=== PATIENT | male | born 1950 | race Caucasian/White ===

== ENCOUNTER 2024-11-30 05:49 | Day surgery (SDC) | payer MEDICARE, SELFPAY ==
--- NOTE | 2024-11-25 13:37 | PAT.ANESEVAL ---
Pre-Assessment Diagnosis/Proposed Procedure Planned Operative Procedure(s): (N/A) Space OAR and Gold Markers Placement Anesthesia History Anesthesia History - marble finisher: Anesthesia History - marble finisher Hx Hospitalization Yes: 04/2024 PACEMAKER 11/24/24 14:38 Any Problems With Anesthesia Yes: WOKE UP DURING SURGERY 11/24/24 14:38 Cholinesterase deficiency No 11/24/24 14:38 You/Your Family Experience No 11/24/24 14:38 fever (hyperthermia) with Relationship Recent Exposure to Contagious Disease Does patient have nerve No 11/24/24 14:38 stimulator Patient instructed to have device shut off --Does patient have Pacemaker or ICD? When Was Last Pacemaker Check QUESTION #4 FULL TEXT: You/Your Family Experience fever (hyperthermia) with Anesthesia Last Oral Intake Last Oral intake: Last Oral Intake NPO since Meds taken in AM with sips of water? Meds patient instructed to take am of surgery PONV PONV - marble finisher: PONV - marble finisher Female No 11/24/24 14:38 HX of Motion Sickness No 11/24/24 14:38 HX of N/V After Surgery No 11/24/24 14:38 Non-Smoker Yes 11/24/24 14:38 Duration of Surgery greater No 11/24/24 14:38 than 60 minutes Number of Risk Factors 1 11/24/24 14:38 PONV Score Low Risk 11/24/24 14:38 Height & Weight Height & Weight: Anesthesia: Height & Weight Height 5 ft 6 in 08/03/24 10:05 Respiratory Assessment Respiratory Assessment - marble finisher: Respiratory Tract Infection Hx - marble finisher Hx Respiratory Tract Infection No 11/24/24 14:38 STOP Sleep Apnea STOP Sleep Apnea - marble finisher: STOP Sleep Apnea - marble finisher Hx Hypertension Yes: PER PT, CONTROLLED ON 11/24/24 14:38 MEDS Hx Sleep Apnea No 11/24/24 14:38 CPAP BIPAP Do you snore loudly (louder No 11/24/24 14:38 than talking or can be heard Do you often feel tired/ No 11/24/24 14:38 fatigued/ sleepy during daytime? Has anyone observed you stop No 11/24/24 14:38 breathing during sleep? STOP Results Negative 11/24/24 14:38 QUESTION #5 FULL TEXT : Do you snore loudly (louder than talking or can be heard through closed doors)? 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 Specify any problems Hx of Preganancy in last 3 N/A 11/24/24 14:38 Months Nurse Filling Out Transfusion MGRIFFITH 11/24/24 14:38 & Questions: Date: 11/24/24 11/24/24 14:38 Time: 14:42 11/24/24 14:38 Patient unable to answer at this time (ie. confused, unrespo /Reproduction History /Reproductive History - marble finisher: /Reproductive Hx- marble finisher Hx Now Gestational Age (in weeks): EDC: Hx Hx Para Hx Section SAB [facility] Medical History (Updated 11/24/24 @ 14:54 by Tamra Lang) Wears glasses Arthritis Prostate disease Blackout Non-smoker Stroke/cerebrovascular accident History of edema History of echocardiogram History of stress test Cardiology follow-up encounter Rupture of urethra Bradycardia Hyperlipemia Hypertension Nocturia Prostate cancer Home Medications ?Medication ?Instructions ?Recorded ?Last Taken ?Type amlodipine 5 mg tablet 5 mg PO QDAY 08/01/24 Unknown History aspirin 81 mg tablet,delayed 81 mg PO QHS 08/01/24 11/21/24 History release atorvastatin 40 mg tablet 40 mg PO QHS 08/01/24 Unknown History lisinopril 40 mg tablet 40 mg PO QDAY 08/01/24 Unknown History metoprolol succinate 25 mg 25 mg PO QDAY 08/01/24 Unknown History tablet,extended release 24 hr multivitamin 1 tab PO QAM 08/01/24 Unknown History triamterene 37.5 1 tab PO QAM 08/01/24 Unknown History mg-hydrochlorothiazide 25 mg tablet cranberry [id number] 1 tab PO DAILY 08/03/24 Unknown History coagulans 250 mg-30 mg-15 mg tablet (Azo Cranberry Plus Probiotic) leuprolide (3 month) 11.25 mg (3 11.25 mg IM [id number] 08/03/24 08/17/24 History month) intramuscular syringe kit (Lupron Depot) cyanocobalamin (vitamin B-12) 1,500 mcg PO DAILY 11/24/24 Unknown History 3,000 mcg capsule Allergy/AdvReac Type Severity Reaction Status Date / Time No Known Allergies Allergy Verified 11/24/24 14:30 Surgical History (Updated 11/24/24 @ 14:54 by Tamra Lang) History of cardiac catheterization History of biopsy History of esophagogastroduodenoscopy (EGD) History of colonoscopy History of spinal fusion History of bilateral hip replacements S/P placement of cardiac pacemaker Social History (Updated 08/03/24 @ 10:05 by Patsy Bryan) household members: spouse current occupational status: retired Smoking Status: Never smoker substance use type: does not use Audit: Pertinent Findings Pertinent Findings EKG Perinent findings: Date not noted on EKG but is atrial paced with left axis deviation and right bundle branch block. With a possible lateral infarct age undetermined. Echo (EF%) pertinent findings: 03/16/2024. EF 68%. Mild aortic valve stenosis. No major changes compared to echocardiogram 12/22/2019. 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 10/04/2024 [facility]. Sick sinus syndrome. EF 68% per report 03/25/2024 echo. Mild aortic stenosis. This evaluation just says that the patient was being moved forward with pacemaker placement. And work on his medications such as beta-bahman titration. Patient is asymptomatic per their evaluation. On subsequent note though states sick sinus syndrome status post pacemaker placement. Recommendation Anesthesia Recommendation Anesthesia recommendation: OPTIMIZED for anesthesia
[2024-11-30] VITALS (8 sets, daily range): BP systolic 104–135; BP diastolic 64–87; PULSE 60–79; RESP 14–16; TEMP 36.3–36.9; O2SAT 94–98; BMI 31.6
[2024-11-30] MEDS: Lactated Ringers 1,000 ML 15 ML IV (06:38)
--- NOTE | 2024-11-30 07:18 | PCM.PRE.AN2 ---
ASA Classification* ASA Classification ASA Classification: 3 Assessment & Plan Anesthesia* Anesthesia Assessment Anesthesia Assessment: Discussed sedation and/or anesthesia options, risks, benefits, and alternatives with patient/parents/legal guardian/POA. Questions invited. The patient/parents/legal guardian/POA seems to understand and agrees to proceed with anesthesia plan. Reviewed the physical assessment, medical history, allergy history and patient home medications list prior to surgery/procedure/anesthetic and documented any changes. Performed airway and anesthesia risk assessments. Anesthesia Type Anesthesia Type: General (General LMA. Patient does have mild aortic stenosis. Avoid increased heart rate or decrease blood pressure. Phenylephrine is drug of choice.) History Source History Obtained from:: Patient and Chart Anesthesia Focused Assessment* Temperature: 97.7 F Pulse Rate: 79 Blood Pressure: 135/87 Respiratory Rate: 16 Pulse Ox: 98 Oxygen Delivery Method: Room Air Airway Assessment Mouth opens: >3 cm Mallampati Score: III Teeth Condition: Caps/Crowns (Patient has several crowns. They are all tight.) Neck Range of motion (ROM): Limited ROM (Slight decrease in extesnion) Focused Labs Anesthesia Preop lab: CBC CHEMISTRY COAG Pre-Assessment Diagnosis/Proposed Procedure Planned Operative Procedure(s): (N/A) Space OAR and Gold Markers Placement Anesthesia History Anesthesia History - sap business objects developer: Anesthesia History - sap business objects developer Hx Hospitalization Yes: 04/2024 PACEMAKER 11/24/24 14:38 Any Problems With Anesthesia Yes: WOKE UP DURING SURGERY 11/24/24 14:38 Cholinesterase deficiency No 11/24/24 14:38 You/Your Family Experience No 11/24/24 14:38 fever (hyperthermia) with Relationship Recent Exposure to Contagious No 11/30/24 06:33 Disease Does patient have nerve No 11/24/24 14:38 stimulator Patient instructed to have device shut off --Does patient have Pacemaker Yes 11/30/24 06:35 or ICD? When Was Last Pacemaker Check QUESTION #4 FULL TEXT: You/Your Family Experience fever (hyperthermia) with Anesthesia Last Oral Intake Last Oral intake: Last Oral Intake NPO since 00:00 11/30/24 06:35 Meds taken in AM with sips of Yes 11/30/24 06:35 water? Meds patient instructed to amlodipine 11/30/24 06:35 take am of surgery metoprolol PONV PONV - sap business objects developer: PONV - sap business objects developer Female No 11/24/24 14:38 HX of Motion Sickness No 11/24/24 14:38 HX of N/V After Surgery No 11/24/24 14:38 Non-Smoker Yes 11/24/24 14:38 Duration of Surgery greater No 11/24/24 14:38 than 60 minutes Number of Risk Factors 1 11/24/24 14:38 PONV Score Low Risk 11/24/24 14:38 Height & Weight Height & Weight: Anesthesia: Height & Weight Height 5 ft 6 in 11/30/24 06:35 Weight: 88.8 kg 11/30/24 06:35 Body Mass Index (BMI) 31.6 11/30/24 06:35 Respiratory Assessment Respiratory Assessment - sap business objects developer: Respiratory Tract Infection Hx - sap business objects developer Hx Respiratory Tract Infection No 11/24/24 14:38 STOP Sleep Apnea STOP Sleep Apnea - sap business objects developer: STOP Sleep Apnea - sap business objects developer Hx Hypertension Yes: PER PT, CONTROLLED ON 11/24/24 14:38 MEDS Hx Sleep Apnea No 11/24/24 14:38 CPAP BIPAP Do you snore loudly (louder No 11/24/24 14:38 than talking or can be heard Do you often feel tired/ No 11/24/24 14:38 fatigued/ sleepy during daytime? Has anyone observed you stop No 11/24/24 14:38 breathing during sleep? STOP Results Negative 11/24/24 14:38 QUESTION #5 FULL TEXT : Do you snore loudly (louder than talking or can be heard through closed doors)? 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 Specify any problems Hx of Preganancy in last 3 N/A 11/24/24 14:38 Months Nurse Filling Out Transfusion MGRIFFITH 11/24/24 14:38 & Questions: Date: 11/24/24 11/24/24 14:38 Time: 14:42 11/24/24 14:38 Patient unable to answer at this time (ie. confused, unrespo /Reproduction History /Reproductive History - sap business objects developer: /Reproductive Hx- sap business objects developer Hx Now Gestational Age (in weeks): EDC: Hx Hx Para Hx Section SAB Active Medications Active Medications: Current Medications Generic Name Dose Route Start Last Admin Trade Name Freq PRN Reason Stop Dose Admin Cefazolin Sodium 2 gm/ Sodium 110 mls @ 150 mls/hr 11/30/24 11:25 Chloride IV 11/30/24 12:08 INTRAOP ONE Lactated Ringer's 1,000 mls @ 15 mls/hr 11/30/24 06:15 11/30/24 06:38 IV 15 mls/hr .Q48H UMA Administration PFSH Medical History Wears glasses Arthritis Prostate disease Blackout Non-smoker Stroke/cerebrovascular accident History of edema History of echocardiogram History of stress test Cardiology follow-up encounter Rupture of urethra Bradycardia Hyperlipemia Hypertension Nocturia Prostate cancer Home Medications ?Medication ?Instructions ?Recorded ?Last Taken ?Type amlodipine 5 mg tablet 5 mg PO QDAY 08/01/24 11/30/24 History aspirin 81 mg tablet,delayed 81 mg PO QHS 08/01/24 11/21/24 History release atorvastatin 40 mg tablet 40 mg PO QHS 08/01/24 11/29/24 History lisinopril 40 mg tablet 40 mg PO QDAY 08/01/24 11/29/24 History metoprolol succinate 25 mg 25 mg PO QDAY 08/01/24 11/30/24 History tablet,extended release 24 hr multivitamin 1 tab PO QAM 08/01/24 11/28/24 History triamterene 37.5 1 tab PO QAM 08/01/24 11/29/24 History mg-hydrochlorothiazide 25 mg tablet cranberry [id number] 1 tab PO DAILY 08/03/24 11/28/24 History coagulans 250 mg-30 mg-15 mg tablet (Azo Cranberry Plus Probiotic) leuprolide (3 month) 11.25 mg (3 11.25 mg IM [id number] 08/03/24 08/17/24 History month) intramuscular syringe kit (Lupron Depot) cyanocobalamin (vitamin B-12) 1,500 mcg PO DAILY 11/24/24 Unknown History 3,000 mcg capsule Allergy/AdvReac Type Severity Reaction Status Date / Time No Known Allergies Allergy Verified 11/24/24 14:30 Surgical History History of cardiac catheterization History of biopsy History of esophagogastroduodenoscopy (EGD) History of colonoscopy History of spinal fusion History of bilateral hip replacements S/P placement of cardiac pacemaker Social History household members: spouse current occupational status: retired Smoking Status: Never smoker substance use type: does not use Review of Systems (Anesthesia) ROS Narrative System reviewed and no additional complaints, except as documented.
--- NOTE | 2024-11-30 07:28 | PCM.HP.STD ---
HPI - General General Date of Service: 11/30/24 Chief Complaint: High risk prostate cancer HPI Narrative CHAPO THOMPSON, is a 74 M who presents for placement of gold markers and spacer gel for high risk prostate cancer patient plans to continue with hormone deprivation therapy and concomitant radiation definitive therapy to prostate and lymph nodes [facility] Medical History Wears glasses Arthritis Prostate disease Blackout Non-smoker Stroke/cerebrovascular accident History of edema History of echocardiogram History of stress test Cardiology follow-up encounter Rupture of urethra Bradycardia Hyperlipemia Hypertension Nocturia Prostate cancer Home Medications ?Medication ?Instructions ?Recorded ?Last Taken ?Type amlodipine 5 mg tablet 5 mg PO QDAY 08/01/24 11/30/24 History aspirin 81 mg tablet,delayed 81 mg PO QHS 08/01/24 11/21/24 History release atorvastatin 40 mg tablet 40 mg PO QHS 08/01/24 11/29/24 History lisinopril 40 mg tablet 40 mg PO QDAY 08/01/24 11/29/24 History metoprolol succinate 25 mg 25 mg PO QDAY 08/01/24 11/30/24 History tablet,extended release 24 hr multivitamin 1 tab PO QAM 08/01/24 11/28/24 History triamterene 37.5 1 tab PO QAM 08/01/24 11/29/24 History mg-hydrochlorothiazide 25 mg tablet cranberry [id number] 1 tab PO DAILY 08/03/24 11/28/24 History coagulans 250 mg-30 mg-15 mg tablet (Azo Cranberry Plus Probiotic) leuprolide (3 month) 11.25 mg (3 11.25 mg IM [id number] 08/03/24 08/17/24 History month) intramuscular syringe kit (Lupron Depot) cyanocobalamin (vitamin B-12) 1,500 mcg PO DAILY 11/24/24 Unknown History 3,000 mcg capsule Allergy/AdvReac Type Severity Reaction Status Date / Time No Known Allergies Allergy Verified 11/24/24 14:30 Surgical History History of cardiac catheterization History of biopsy History of esophagogastroduodenoscopy (EGD) History of colonoscopy History of spinal fusion History of bilateral hip replacements S/P placement of cardiac pacemaker Social History household members: spouse current occupational status: retired Smoking Status: Never smoker substance use type: does not use Vital Signs Vital Signs Vital Signs: 11/30/24 06:33 11/30/24 06:35 11/30/24 07:25 Temperature 97.7 F L 97.7 F L Temperature Source Temporal Pulse Rate 79 79 Respiratory Rate 16 16 Respiratory Pattern Normal Blood Pressure 135/87 H 135/87 H Blood Pressure Mean 103 Blood Pressure Source Monitor Blood Pressure Position Semi-Fowlers Blood Pressure Location Right Arm Pulse Ox 98 98 Oxygen Delivery Method Room Air Room Air Weight Weight: 88.8 kg Body Mass Index (BMI) 31.6
--- NOTE | 2024-11-30 07:29 | PCM.DC ---
Discharge Instructions Diet Discharge Diet: No restrictions DC O2, CPAP, BIPAP needs Home O2 Discharge instructions: No Dressing / Incision Discharge Activity: Return to Normal Activity and May Not Drive (while taking narcotic pain medications.) Dressing / Incision Call your doctor if you observe: Fever of 101 or Higher Follow Up Care Please Follow Up With: Cheko Bhatia MD When: Call [phone] for an appointment Test Results: Test results from this visit will be discussed in further detail at your follow-up appointment, if applicable. Discharge Plan Admission Attending Provider: Cheko Bhatia Primary Care Provider: Donnell Mendoza Instructions Print Language: Surinamese Discharge Orders/Prescriptions Prescriptions: No Action Azo Cranberry Plus Probiotic 250-30-15 mg tablet 1 tab PO DAILY Lupron Depot (3 month) 11.25 mg syringe kit 11.25 mg IM [id number] amlodipine 5 mg tablet 5 mg PO QDAY aspirin 81 mg tablet,delayed release (DR/EC) 81 mg PO QHS Patient Comments: LAST DOSE 11/21/24 FOR SURGERY ON 11/30/24 atorvastatin 40 mg tablet 40 mg PO QHS lisinopril 40 mg tablet 40 mg PO QDAY metoprolol succinate 25 mg tablet extended release 24 hr 25 mg PO QDAY multivitamin Tablet 1 tab PO QAM triamterene-hydrochlorothiazid 37.5-25 mg tablet 1 tab PO QAM cyanocobalamin (vitamin B-12) 3,000 mcg capsule 1,500 mcg PO DAILY Referrals / Follow Up: Donnell Mendoza MD [Primary Care Provider] - Disposition Disposition (needs filled in before D/C Order can be placed): Home, Self Care
[2024-11-30] MEDS: Cefazolin 2 GM in 0.9% Normal Saline (100mL Bag) 100 ML IV (07:30)
--- NOTE | 2024-11-30 07:52 | OP.PCM_ITS ---
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 The penis and testicles and perineum were prepped and draped in usual sterile fashion placed an ultrasound probe into the rectum quite difficult to get the probe and was off- center but the prostate was very large. Then under ultrasound guidance I was able to place gold markers in the prostate I placed 3 gold markers in 3 different locations of the prostate the base the mid and the apex. After 3 gold markers were placed then we proceeded with placement of the spacer gel. His prostate was extremely fixed on exam was hard and very difficult to get the needle between the rectum and the prostate in the exact position I was finally able to get the needle between the rectum and the prostate but when I injected the spacer gel there was very little to no separation between the rectum and the prostate. I decided not to try again with anymore the spacer gel think the prostate is pretty fixed in the position spacer gel to go in but only created a small amount of space between the rectum and the prostate because of the fixed nature of the prostate. Successful placement of spacer gel but very little separation between the rectum the prostate. Surgical Findings: Very hard firm prostate could not get any real separation between the rectum and the prostate and a spacer gel appear to be fixed Complications Complications: No Admit VTE Documentation VTE Present on Admission: No VTE Mechan Device Prophylaxis: SCD's VTE Pharm Prophylaxis ordered?: No
--- NOTE | 2024-11-30 08:04 | PCM.POST.ANE ---
Anesthesia: Postop Eval I Current Vital Signs Temperature: 98.3 F Pulse Rate: 64 Blood Pressure: 109/69 Respiratory Rate: 16 Pulse Ox: 94 Oxygen Delivery Method: Room Air Assessment Airway patent: Yes Spontaneous unlabored respirations: Yes Mental status: Awake and Calm nausea: No Vomiting: No Anesthesia Complication: No Fluid Hydration Crystalloid volume administer (ml): 500 Total IV fluid infused: 500 Progress Note Anesthesia document: Postop Eval 1 completed: Yes
--- NOTE | 2024-11-30 08:12 | POSTOPAN2_ITS ---
Anesthesia Postop Eval I Sum Postop Eval Completion status Anesthesia document: Postop Eval 1 completed: Yes Anesthesia Postop Eval I Summary Anesthesia Postop Eval I Summary: Anesthesia Postop Eval I: Assessment Summary Airway patent Yes 11/30/24 08:04 IT INFRASTRUCTURE ARCHITECT.SOBR Spontaneous unlabored Yes 11/30/24 08:04 IT INFRASTRUCTURE ARCHITECT.SOBR respirations Mental status Awake,Calm 11/30/24 08:04 IT INFRASTRUCTURE ARCHITECT.SOBR nausea No 11/30/24 08:04 IT INFRASTRUCTURE ARCHITECT.SOBR Vomiting No 11/30/24 08:04 IT INFRASTRUCTURE ARCHITECT.SOBR Anesthesia Postop Eval I: Fluid Summary Crystalloid volume administer 500 11/30/24 08:04 IT INFRASTRUCTURE ARCHITECT.SOBR (ml) Colloids volume administered ( ml) Blood Product volume administered (ml) Total IV fluid infused 500 11/30/24 08:04 IT INFRASTRUCTURE ARCHITECT.SOBR Anesthesia Postop Eval I: Summary Notes Anesthesia Complication No 11/30/24 08:04 IT INFRASTRUCTURE ARCHITECT.SOBR Anesthesia Complication Comment: Post-operative progress note Anesthesia: Postop Eval II Evaluation Mental status: Awake Pain Level: 1 nausea: No Vomiting: No
--- NOTE | 2024-11-30 08:12 | PCM.POSTANE2 ---
Anesthesia Postop Eval I Sum Postop Eval Completion status Anesthesia document: Postop Eval 1 completed: Yes Anesthesia Postop Eval I Summary Anesthesia Postop Eval I Summary: Anesthesia Postop Eval I: Assessment Summary Airway patent Yes 11/30/24 08:04 FINANCE ASSOCIATE.SOBR Spontaneous unlabored Yes 11/30/24 08:04 FINANCE ASSOCIATE.SOBR respirations Mental status Awake,Calm 11/30/24 08:04 FINANCE ASSOCIATE.SOBR nausea No 11/30/24 08:04 FINANCE ASSOCIATE.SOBR Vomiting No 11/30/24 08:04 FINANCE ASSOCIATE.SOBR Anesthesia Postop Eval I: Fluid Summary Crystalloid volume administer 500 11/30/24 08:04 FINANCE ASSOCIATE.SOBR (ml) Colloids volume administered ( ml) Blood Product volume administered (ml) Total IV fluid infused 500 11/30/24 08:04 FINANCE ASSOCIATE.SOBR Anesthesia Postop Eval I: Summary Notes Anesthesia Complication No 11/30/24 08:04 FINANCE ASSOCIATE.SOBR Anesthesia Complication Comment: Post-operative progress note Anesthesia: Postop Eval II Evaluation Mental status: Awake Pain Level: 1 nausea: No Vomiting: No
[2024-11-30] MEDS: Acetaminophen 325 MG Tablet 650 MG PO (10:02)
== END 2024-11-30 10:43 | disposition home or self-care (01) ==
LOC: SDC 05:50 → AC 05:54
PROVIDERS: PCP Family Medicine; Referring Provider Urology; Visit Provider Urology
PROC: (CPT 55874; principal; 2024-11-30 07:15)
DX: C61 Malignant neoplasm of prostate (principal); E78.5 Hyperlipidemia, unspecified; I10 Essential (primary) hypertension; Z86.73 Personal history of transient ischemic attack (TIA), and cerebral infarction without residual deficits; Z79.899 Other long term (current) drug therapy; R97.20 Elevated prostate specific antigen [PSA]
CPT/HCPCS: 55874; 55876; 00902; A4648; C1889; J2405

== ENCOUNTER → 2024-12-23 | Outpatient (CLI) | payer MEDICARE, SELFPAY ==
--- NOTE | 2024-12-23 07:33 | MRI_ITS ---
PROCEDURE: PELVIS W/WO CONTRAST, 12/23/2024 REASON FOR EXAM: PLANNING FOR RADIATION THERAPY, EVAL DISEASE EXTEN TECHNIQUE: Multisequence multiplanar MR of the pelvis was performed with and without IV contrast. IV contrast: 18 mL Clariscan COMPARISON: 12/03/2023 ; note that images only are available for review, the report is not available at the time of the dictation. FINDINGS: Exam limited by artifact related to bilateral hip arthroplasty hardware, most significantly severely degrading diffusion imaging which is nondiagnostic through some portions of the gland, [id number]. This is notably a mayberry sequence. Portions of the surrounding soft tissue are obscured on additional sequences obtained. Additional variable overall mild/moderate motion limitation, with some sequences moderately motion degraded, notably including small [id number] T2 sequences, which are also exam limited mayberry sequences. Additional artifacts along the cranial most aspect of the note also that dynamic postcontrast [id number] above the level of the prostate related to lumbar spinal fusion hardware. Imaging does excludes the prostatic apex from the [id number]. Prostate size: 5.9 x 5.4 x 9.2 cm, estimated volume 152 mL. Interval placement of spacing material between the anterior rectum and the posterior prostate, largely located to the RIGHT of midline. Although evaluation is limited by motion, this demonstrates a slightly unusual appearance with peripheral wall thickening/enhancement and suggestion of loculation. There is good separation of the anterior rectum and prostate at the level of the base to midgland, however at the level of the midgland to apex, there are areas of direct contact (for example, series 5 image 13). Transition zone: No definite high-risk lesion identified allowing for limitations. PI-RADS 2 findings. Peripheral Zone: No definite high-risk lesion identified allowing for limitations. Background changes of likely prostatitis (PI-RADS 2). Neurovascular bundles: Grossly unremarkable. Seminal vesicles: Atrophic and not well seen. Bladder: Mass-effect by the enlarged prostate with intraluminal protrusion of exophytic transition zone parenchyma. Bladder wall trabeculation with diverticuli suggesting chronic bladder outlet obstruction. Layering debris within the largest LEFT posterolateral diverticulum which measures 4.0 cm demonstrates restricted diffusion. Mild mucosal hyperemia within this diverticulum. Lymph nodes: Suspect a 9-12 mm LEFT external iliac node, difficult to visualize/measure due to the extent of artifact, previously 8 mm. This would be considered mildly enlarged by PI-RADS criteria. No other definite lymphadenopathy identified within visible portions of the pelvis. Bones: Variable artifact related to above bilateral hip arthroplasty and lumbar spinal fusion. No definite destructive or suspicious bony lesion is identified within visible portions of the pelvis.. Other: None. MRI/Pelvis W/WO Contrast IMPRESSION: 1. Exam considerably limited by a combination of artifacts related to hip arthr oplasty hardware and motion. 2. Interval placement of spacing material between the anterior rectum and the p rostate. Appearance is somewhat unusual and may suggest superimposed infection/abscess formation correlate with patient's clini eileen status. 3. Findings related to a LEFT posterolateral bladder diverticulum which suggest cystitis. Correlate with urinalysis. 4. Spacing material slightly asymmetrically located to the RIGHT of midline. G ood separation at the level of the base. At the level of the midgland to apex, there is persistent direct contact between the a nterior rectum and the prostate. 5. Marked prostatomegaly/BPH and sequela of likely prostatitis without definite risk lesion identified allowing for limitations (PI-RADS 2). 6. Suspect a mildly enlarged LEFT external iliac node by PI-RADS, difficult cri teria to confirm due to the extent of artifact in this region. CT should be considered however note PI-RADS criteria for lymphad enopathy in the setting of known prostatic malignancy (8 mm short axis) differ from routine CT criteria (10 mm short axis) . No other definite pelvic lymphadenopathy within visible portions of the pelvis. 7. Additional description as above. Reading Location: [id number]
--- OUTSIDE RECORDS SUMMARY | 2024-12-23 07:34 | XMS RPT_ITS | CCD ---
Author Organization [facility] Care Team Providers Care Dishcloth Folder Name Role Phone MAYA ROGERS Unavailable Unavailable Physician, PCP Unknown Unavailable Unavailab MAYA Grider Unavailable Unavailable Physician, PCP Unknown Unavailable Unavailab MAYA Grider Unavailable Unavailable GITTINS, ELLIOTT Unavailable Unavailable Physician, PCP Unknown Unavailable Unavailab rhonda ONOFRE, ELLIOTT Unavailable Unavailable Orona II, Alli Unavailable Unavailable Tourlas, Alan Unavailable Unavailabl e Tourlas, Alan Unavailable Unavailabl e Tourlas, Alan Primary Care Provider [phone] GREGORIO MEHTA Attending Unavailable TOURLAS, ALAN Primary Care Unavailabl e GREGORIO MEHTA Attending Unavailable TOURLAS, ALAN Referring Unavailabl e TOURLAS, ALAN Primary Care Unavailabl e Tourlas, Alan Unavailable Unavailabl e Tourlas, Alan Unavailable Unavailabl e Tourlas, Alan Primary Care Provider Segundo Malloy Unavailable Unavailable Unavailable Unavailable Unavailable Unavailable Unavailable Segundo Malloy Primary Care Provider [phone] MD MELLISSA, MPH [facility] Primary Care Unavailable Sippey, Dr. Brice Attending Unavailable Jacque Dao, Dr. Hari Tompkins Attending Megan deangelo MALLOY MD, MPH [facility] Primary Care Unavailable Sippey, Dr. Brice Admitting Unavailable Sippey, Dr. Brice Attending Unavailable Sippey, Dr. Brice Referring Unavailable MD MELLISSA, MPH [facility] Primary Care Unavailable MD MELLISSA, MPH [facility] Primary Care Unavailable Orona II, Dr. Alli Ordoñez Attending Stephanie MALLOY MD, MPH [facility] Primary Care Unavailable MD MELLISSA, MPH [facility] Attendin g Unavailable MD MELLISSA, MPH [facility] Care Unavailable MD MELLISSA, MPH [facility] Attendin g Unavailable MD MELLISSA, MPH [facility] Primary Care Unavailable MD MELLISSA, MPH [facility] Attendin g Unavailable MD MELLISSA, MPH [facility] Primary Care Unavailable MD MELLISSA, MPH [facility] Attendin g Unavailable MD MELLISSA, MPH [facility] Care Unavailable MD MELLISSA, MPH [facility] Attendin g Unavailable MD MELLISSA, MPH [facility] Care Unavailable MD MELLISSA, MPH [facility] Attendin g Unavailable MD MELLISSA, MPH [facility] Unavailable MD MELLISSA, MPH [facility] Attendin g Unavailable MD MELLISSA, MPH [facility] Primary [facility] Unavailable MD [facility]ISSA, [facility] Un[facility] MD MELLISSA, MPH [facility] Unavailable MD MELLISSA, MPH [facility] Attendin g Unavailable MD MELLISSA, MPH [facility] Unavailable Orona II, Dr. Alli Ordoñez Admitting Unavai lable Orona II, Dr. Alli Ordoñez Attending Unavai lable Orona II, Dr. Alli Ordoñez Referring Stephanie MALLOY MD, MPH [facility] Primary Care Unavailable Orona II, Dr. Alli Ordoñez Attending Unavai lable Orona II, Dr. Alli Ordoñez Referring Unavazoey Malloy MD MPH, [facility] Primary Care Pro vider Babs Moreno DO Unavailable [phone] Mellissa KRISHNAN, Segundo Primary Care Provider [phone] Cooperrider II, OD, Max H Unavailable Adwoa KRISHNAN, Alli Johnson Unavailable Mellissa KRISHNAN, Segundo Primary Care Provider [phone] NUSRAT MORGAN Attending U FLAVIA Haddad Referring Unavailable REJI, DONNELL L Primary Care Unavailable Reji KRISHNAN, Donnell Coronado Primary Care Provider Reji KRISHNAN, Donnell Coronado Primary Care Provider Mellissa KRISHNAN MPH, [facility] Primary Care Pro vider Mellissa KRISHNAN MPH, [facility] S Unavailable DELILAH CHRISTIAN Referring Unavailable MALLAPAREDDI, [facility] Primary Care Unavailable DELILAH CHRISTIAN Attending Unavailable COOPERRIDER II, MAX H Referring Unavailabl e MALLAPAREDDI, [facility] Primary Care Unavailable DELILAH CHRISTIAN Attending Unavailable COOPERRIDER II, MAX H Attending Unavailabl e COOPERRIDER II, MAX H Referring Unavailabl e MALLAPAREDDI, [facility] Primary Care Unavailable DELILAH CHRISTIAN Referring Unavailable REJI, DONNELL L Primary Care Unavailable DELILAH CHRISTIAN Attending Unavailable COOPERRIDER II, MAX H Attending Unavailabl e REJI, DONNELL L Primary Care Unavailable CHRISTIANDELILAH NUNEZ Referring Unavailable COOPERRIDER II, MAX H Attending Unavailabl e REJI, DONNELL L Primary Care [facility] Primary Care Unavail able [facility]EDDI, [facility] Primary Care Unavail able MALLAPAREDDI, [facility] Primary Care Unavail able REJI, DONNELL L Primary Care Unavailable REJI, DONNELL L Primary Care Unavailable REJI, DONNELL L Primary Care Unavailable REJI, DONNELL L Primary Care Unavailable Oberhauser DO, Babs L Unavailable [phone] Adwoa KRISHNAN, Alli Johnson Unavailable Reji KRISHNAN, Donnell Coronado Primary Care Provider RANDOLPH BERNAL Admitting Unavailable RANDOLPH BERNAL Attending Unavailable REJI, DONNELL L Primary Care Unavailable BERNAL, RANDOLPH Admitting Unavailable BERNAL, RANDOLPH Attending Unavailable REJI, DONNELL L Primary Care Unavailable BERNAL, RANDOLPH Referring Unavailable REJI, DONNELL L Primary Care Unavailable BERNAL, RANDOLPH Referring Unavailable REJI, DONNELL L Primary Care Unavailable Oberhauser DO, Babs L Unavailable Oberhauser DO, Babs L Unavailable [phone] Dr. Dorian Ibrahim DO Attending Provider Reji KRISHNAN, Dr. Jacobo Primary Care Provider Adwoa KRISHNAN, Dr. Carson Referring Provider Sriram KRISHNAN, Dr. Cheko Richards Attending Provider Sriram KRISHNAN, Dr. Cheko Richards Referring Provider ALLI ORONA Attending Unavailable M[facility]APAREDDI, [facility] Primary Care Unavail able [facility], [facility] Attending Unavail able [facility], [facility] Primary Care Unavail able ALLI ORONA Attending Unavailable [facility]APAREDDI, [facility] Primary Care Unavail able ALLI ORONA Attending Unavailable M[facility]APAREDDI, [facility] Primary Care Unavail able [facility]APAREDDI, [facility] Attending Unavail able [facility]EDDI, [facility] Primary Care Unavail able GATICA TRISTAN, TOBY KEENAN Attending Unava ilable M[facility]EDDI, [facility] Referring Unavail able [facility]EDDI, [facility] Primary Care Unavail able BERNAL, RANDOLPH Attending Unavailable [facility]EDDI, [facility] Primary Care Unavail able GATICA TRISTAN, TOBY KEENAN Referring Unava ilable GATICA TRISTAN TOBY KEENAN Attending Unava ilable REJI, DONNELL L Primary Care Unavailable EKATERINA, FLAVIA L Attending Unavailable REJI, DONNELL L Primary Care Unavailable EKATERINA, FLAVIA L Referring Unavailable REJI, DONNELL L Primary Care Unavailable ORONAALLI Jain Attending Unavailable REJI, DONNELL L Primary Care Unavailable REJI, DONNELL L Attending Unavailable REJI, DONNELL L Primary Care Unavailable ORONAALLI Jain Attending Unavailable REJI, DONNELL L Primary Care Unavailable BERNAL, RANDOLPH Attending Unavailable REJI, DONNELL L Primary Care Unavailable ORONAALLI Jain Attending Unavailable REJI, DONNELL L Primary Care Unavailable REJI, DONNELL L Primary Care Unavailable GATICA TRISTAN, TOBY KEENAN Attending Unava ilable REJI, DONNELL L Primary Care Unavailable REJI, DONNELL L Attending Unavailable REJI, DONNELL L Primary Care Unavailable RANDOLPH BERNAL Referring Unavailable REJI, DONNELL L Primary Care Unavailable ALLI ORONA Admitting Unavailable ALLI ORONA Attending Unavailable MALLAPAREDDI, [facility] Primary Care Unavail able ALLI ORONA Referring Unavailable MALLAPAREDDI, [facility] Primary Care Unavail able GATICA TRISTAN, TOBY KEENAN Referring Unava ilable MALLAPAREDDI, [facility] Primary Care Unavail able GATICA TRISTAN, TOBY KEENAN Referring Unava ilable MALLAPAREDDI, [facility] Primary Care Unavail able GATICA TRISTAN, TOBY KEENAN Admitting Unava ilable GATICA TRISTAN, TOBY KEENAN Attending Unava ilable REJI, DONNELL L Primary Care Unavailable GATICA TRISTAN, TOBY KEENAN Referring Unava ilable REJI, DONNELL L Primary Care Unavailable GATICA TRISTAN, TOBY KEENAN Referring Unava ilable REJI, DONNELL L Primary Care Unavailable REJI, DONNELL L Primary Care Unavailable LEONID ANAYA Attending Unavailable LEONID ANAYA Referring Unavailable REJI, DONNELL L Primary Care Unavailable LEONID ANAYA Referring Unavailable REJI, DONNELL L Primary Care Unavailable RANDOLPH BERNAL Referring Unavailable REJI, DONNELL L Primary Care Unavailable LINN IBRAHIM Referring Unavailable REJI, DONNELL L Primary Care Unavailable Reji, Donnell Primary Care Unavailable Ana Laura Lucero Attending Unavailable Cheko Bhatia Attending Unavailable Cheko Bhatia Referring Unavailable Reji, Donnell Primary Care Unavailable Dorian Ibrahim Referring Unavailable Reji, Donnell Primary Care Unavailable Dorian Ibrahim Attending Unavailable Alli Orona II Referring Unavailable Reji, Donnell Primary Care Unavailable Dorian Ibrahim Attending Unavailable Medications Current Medications Medication Drug Class(es) Dates Sig (Normalized) Sig (Original) Acetaminophen (3 sources) Start: 05-02-2024 take 1 tablet by mouth every four hours as needed acetaminophen (Tylenol) tablet 650 mg Start: 03-25-2024 take 1 tablet by eva th every six hours as needed Start: 12-29-2023 End: 12-29-2023 take 975 mg by mouth once as needed for pain 975 mg, oral, Once, On Thu12/29/23 at 0630, For 1 dose, Preprocedure, Administer with small amount of water preoperatively., If ordered PRN for pain, nurse is permitted to administer this medication for higher pain scores based on patient preference? Yes acetaminophen 325 mg / HYDROcodone bitartrate 5 mg oral tablet (9 sources) Opioid Agonist Start: 12-29-2023 End: 02-19-2024 take 1 tablet by mouth every six hours for pain HYDROcodone-acetaminophen ([place]) 5-325 mg tablet Indications: Elevated PSA Take 1 tablet by mouth every 6 hours if needed for severe pain (7 - 10). 20 tablet 12/29/2023 02/19/2024 Discontinued (Therapy completed) Start: 08-01-2019 take 1 tablet by eva th every eight hours HYDROcodone-Acetaminophen 5-325 MG Oral Tablet TAKE 1 TABLET Every 8 hours PRN Right shoulder pain Don't drive or drink alcohol while on med Quantity: 21 Refills: 0 Alan Whiteside MD Start : 01-Aug-2019 Active amLODIPine 5 mg oral tablet (20 sources) Dihydropyridine Calcium Channel Bahman Start: 09-12-2022 End: 05-26-2025 take 1 tablet by mouth once daily Amlodipine 5 mg tablet Active 5 mg PO daily August 01, 2024 1:00am Start: 09-10-2021 amLODIPine Bes ylate 10 MG Oral Tablet Quantity: 45 Refills: 0 Ordered: 28-Sep-2021 DO Start : 10-Sep-2021 Complete Start: 10-31-2019 take 1 tablet by eva th once daily amLODIPine (NORVASC) 10 MG tablet Take 10 mg by mouth daily . 0 10/31/2019 Active take 0.5 tablet by m out once daily amLODIPine Besylate 10 MG Oral Tablet TAKE 0.5 TABLET Daily Quantity: 45 Refills: 3 Ordered: 10-Sep-2021 Mellissa KRISHNAN, MPH, Segundocelina Heller Active Comment on above: Take 5 mg by mouth. Cranberry Igpq-W-Euwngkav Coag (1 source) Non-Standardized Food Allergenic Extract, Non-Standardized Plant Allergenic Extract, Vitamin C Start: 08-03-2024 Cranberry Amjx-Y-Rsfgkbdd Coag (Azo Cranberry Plus Probiotic) 250-30-15 mg tablet Active 1 {tbl} PO DAILY August 03, 2024 1:00am aspirin 81 mg delayed release oral tablet (20 sources) Platelet Aggregation Inhibitor, Nonsteroidal Anti-inflammatory Drug Start: 05-03-2024 take 1 tablet by mouth at bedtime Aspirin 81 mg tablet,delayed release (DR/EC) Active 81 mg PO AT BEDTIME August 01, 2024 1:00am Start: 12-22-2019 aspirin 81 mg chewable tablet 12/22/2019 Active atorvastatin 40 mg oral tablet (20 sources) HMG-CoA Reductase Inhibitor Start: 04-06-2024 End: 11-24-2025 take 1 tablet by mouth at bedtime Atorvastatin 40 mg tablet Active 40 mg PO AT BEDTIME August 01, 2024 1:00am Start: 06-17-2023 End: 06-16-2024 take 1 tablet by mouth once daily atorvastatin (Lipitor) 20 mg tablet Indications: High cholesterol , Cerebrovascular accident (CVA), unspecified mechanism (Multi) Take 1 tablet (20 mg) by mouth once daily. 90 tablet 3 06/17/2023 04/04/2024 Discontinued (Dose adjustment) Start: 07-18-2020 atorvastatin ( LIPITOR) 40 mg tablet 20 mg. 07/18/2020 Active Start: 12-23-2019 take 1 tablet by eva th once daily at bedtime atorvastatin (Lipitor) 40 mg tablet Take 1 tablet (40 mg) by mouth once daily at bedtime. 0 12/28/2019 Active Comment on above: 20 mg. benoxinate hydrochloride 4 mg/ml / fluorescein sodium 3 mg/ml ophthalmic solution (2 sources) Diagnostic Dye Start: 05-11-2024 End: 05-12-2024 fluorescein-benoxinat e 0.3-0.4 % 1 Drop (FLURESS) Start: 05-11-2024 End: 05-12-2024 1 Drop, BOTH EYES, DIRECT ED, Starting on Thu05/11/24 at 1500, Until Yessenia 05/12/24 at 0259, Administer for applanation tonometry. In the event of a Fluress shortage, administer [place]-Fluor 1 drop into both eyes as directed for applanation tonometry bicalutamide 50 mg oral tablet (5 sources) Androgen Receptor Inhibitor Start: 01-20-2024 End: 01-19-2025 take 1 tablet by mouth once daily bicalutamide (Casodex) 50 mg tablet Indications: Prostate cancer (Multi) Take 1 tablet (50 mg total) by mouth once daily. Take at the same time every day. 21 tablet 01/20/2024 02/19/2024 Discontinued (Therapy completed) calcium chloride 0.0014 meq/ml / potassium chloride 0.004 meq/ml / sodium chloride 0.103 meq/ml / sodium lactate 0.028 meq/ml injectable solution (2 sources) Start: 12-29-2023 take 50 mL intravenously every hour 50 mL/hr, intravenous, Continuous, Starting on Thu12/29/23 at 0630, Preprocedure Start: 11-03-2023 take 20 mL intraveno usly every hour 20 mL/hr, intravenous, Continuous, Starting on Thu11/03/23 at 1400, Preprocedure cephalexin 500 mg oral capsule (6 sources) Cephalosporin Antibacterial Start: 05-03-2024 End: 05-10-2024 take 1 capsule by mouth twice daily in the evening cephalexin (Keflex) 500 mg capsule Indications: S/P placement of cardiac pacemaker Take 1 capsule (500 mg) by mouth 2 times a day for 7 days. 14 capsule 05/03/2024 2:06 PM EDT 05/03/2024 05/10/2024 Active ciprofloxacin 250 mg oral tablet (11 sources) Quinolone Antimicrobial Start: 09-05-2024 End: 09-08-2024 take 1 tablet by mouth twice daily ciprofloxacin (Cipro) 250 mg tablet Indications: Urinary frequency Take 1 tablet (250 mg) by mouth 2 times a day for 3 days. 6 tablet 09/05/2024 09/08/2024 Active Start: 12-09-2023 End: 12-18-2023 take 1 tablet by mouth twice daily ciprofloxacin (Cipro) 500 mg tablet Indications: Elevated PSA Take 1 tablet (500 mg) by mouth 2 times a day for 3 days. 6 tablet 12/09/2023 12/18/2023 Active Start: 09-10-2020 End: 09-10-2021 take 1 tablet by mouth twice daily Ciprofloxacin HCl - 500 MG Oral Tablet Take 1 tablet twice daily Quantity: 30 Refills: 0 Ordered: 10-Sep-2020 Alli Orona II, MD Start : 10-Sep-2020 End : 10-Sep-2021 Complete clopidogrel 75 mg oral tablet (6 sources) P2Y12 Platelet Inhibitor Start: 12-23-2019 take 1 tablet by mouth once daily clopidogreL (PLAVIX) 75 mg tablet Take 75 mg by mouth daily . 0 12/23/2019 Active cranberry fruit concentrate (AZO CRANBERRY ORAL) (2 sources) take 2 tablets by mouth once daily cranberry fruit concentrate (AZO CRANBERRY ORAL) Take 2 tablets by mouth once daily. Active finasteride 5 mg oral tablet (20 sources) 5-alpha Reductase Inhibitor Start: 09-12-2019 End: 03-25-2024 take 1 tablet by mouth once daily finasteride (Proscar) 5 mg tablet Indications: Benign prostatic hyperplasia with lower urinary tract symptoms, symptom details unspecified Take 1 tablet (5 mg) by mouth once daily. 90 tablet 3 05/20/2023 08/18/2023 Active FINASTERIDE (PRO SCAR ORAL) Take by mouth. Active FINASTERIDE (PRO SCAR ORAL) Take by mouth. 0 Active Comment on above: Take by mouth. gabapentin (8 sources) Anti-epileptic Agent GABAPENTIN ORAL Take by mouth. Active GABAPENTIN ORAL Take by mouth. 0 Active Comment on above: Take by mouth. glucagon (rdna) 1 mg injection (2 sources) Antihypoglycemic Agent Start : 05-02 1 mg, intramuscular, Every 15 min PRN, low blood sugar - see comments, For blood glucose less than or equal to 70 mg/dL and no IV access, Starting on Thu05/02/24 at 1626, Give until blood glucose is 100 mg/dL or greater. If patient DOES NOT HAVE secure IV access & patient is unconscious, NPO or is unable to eat or drink. 50 ml glucose 500 mg/ml prefilled syringe (2 sources) Start : 05-02 12.5 g, intravenous, Every 15 min PRN, For blood glucose 41 to 70 mg/dL, Starting on Thu05/02/24 at 1626, May repeat until blood glucose level reaches 100 mg/dL or greater. Push 2 - 3 mL/minute if patient has secure IV access. hydroCHLOROthiazide 12.5 mg oral tablet (7 sources) Thiazide Diuretic Start : 12-17 End: 01-16 take 1 tablet by mouth once daily hydroCHLOROthiazide (Microzide) 12.5 mg tablet Indications: HTN (hypertension), benign Take 1 tablet (12.5 mg) by mouth once daily. 30 tablet 12/18/2023 Active hydroCHLOROthiazide 25 mg / triamterene 37.5 mg oral tablet (20 sources) Potassium-sparing Diuretic, Thiazide Diuretic Start : 07-31 End: 11-24 Triamterene-Hydrochlorot hiazid 37.5-25 mg tablet Active 1 {tbl} PO EVERY MORNING August 01, 2024 1:00am Start: 10-31-2019 take 1 tablet by mouth once daily triamterene-hydrochlorothiazide (MAXZIDE -25) 37.5-25 mg per tablet Take 1 tablet by mouth daily . 0 10/31/2019 Active Start: 03-14-2017 triamterene-hy drochlorothiazide (MAXZIDE-25) 37.5-25 mg per tablet 03/14/2017 Active insulin lispro 100 unt/ml injectable solution (1 source) Insulin Analog Start: 05-02-2024 0-5 Units, subcutaneous, 3 times daily (morning, midday, late afternoon), First dose on Thu05/02/24 at 1700, Do not hold when patient is not eating, continue order as scheduled for hyperglycemia management. Insulin Lispro Corrective Scale #1 Hypoglycemia protocol Call LIP unit(s) if Blood Glucose is between 0 - 70 mg/dL 0 unit(s) if Blood glucose is between 71-150 1 unit(s) if Blood glucose is between 151-200 2 unit(s) if Blood glucose is between 201-250 3 unit(s) if Blood glucose is between 251-300 4 unit(s) if Blood glucose is between 301-350 5 unit(s) if Blood glucose is between 351-400 If blood glucose is greater than 400 mg/dL, give max insulin per sliding scale AND then contact provider. lisinopril 40 mg oral tablet (20 sources) Angiotensin Converting Enzyme Inhibitor Start: 10-31-2019 End: 05-26-2025 take 1 tablet by mouth once daily Lisinopril 40 mg tablet Active 40 mg PO daily August 01, 2024 1:00am Comment on above: Take 40 mg by mouth. 24 hr metoprolol succinate 25 mg extended release oral tablet (20 sources) beta-Adrenergic Bahman Start: 08-01-2024 take 1 tablet by mouth once daily metoprolol succinate XL (Toprol-XL) 25 mg 24 hr tablet Indications: CAD (coronary artery disease) Take 1 tablet (25 mg) by mouth once daily. Do not crush or chew. 45 tablet 3 10/04/2024 Active Start: 05-03-2024 End: 10-04-2024 take 0.5 tablet by mouth once daily metoprolol succinate XL (Toprol-XL) 25 mg 24 hr tablet Indications: CAD (coronary artery disease) Take 0.5 tablets (12.5 mg) by mouth once daily. Do not crush or chew. 45 tablet 3 08/02/2024 10/04/2024 Discontinued (Dose adjustment) Start: 05-03-2024 metoprolol suc cinate ER (TOPROL XL) 25 mg 24 hr tablet 05/03/2024 Active multivitamin tablet (20 sources) take 1 tablet by eva th once daily multivitamin tablet Take 1 tablet by mouth once daily. Suspended take 1 tablet by mouth once parish y multivitamin tablet Take 1 tablet by mouth once daily. Active Multivitamin tablet (1 source) Start: 08-01-2024 Multivitamin t ablet Active 1 {tbl} PO EVERY MORNING August 01, 2024 1:00am MULTIVITAMIN WITH MINERALS (MULTIVITAMIN & MINERAL FORMULA ORAL) (8 sources) MULTIVITAMIN WIT H MINERALS (MULTIVITAMIN & MINERAL FORMULA ORAL) Take by mouth. Active MULTIVITAMIN WIT H MINERALS (MULTIVITAMIN & MINERAL FORMULA ORAL) Take by mouth. 0 Active Comment on above: Take by mouth. mupirocin 0.02 mg/mg topical ointment (8 sources) RNA Synthetase Inhibitor Antibacterial Start: 02-19-20 17 mupirocin (BACTROBAN) 2 % ointment 02/18/2017 Active 2 ml naloxone hydrochloride 1 mg/ml prefilled syringe (1 source) Opioid Antagonist Start: 05-02-20 24 pantoprazole 40 mg delayed release oral tablet (5 sources) Proton Pump Inhibitor Start: 11-03-19 End: 11-03-19 take 1 tablet by mouth once daily pantoprazole (ProtoNix) 40 mg EC tablet Indications: Dysphagia, unspecified type Take 1 tablet (40 mg) by mouth once daily. Do not crush, chew, or split. 90 tablet 1 11/03/2023 12/18/2023 Discontinued (Therapy completed) phenylephrine hydrochloride 25 mg/ml ophthalmic solution (4 sources) alpha-1 Adrenergic Agonist Start: 07-25-19 End: 07-25-19 PHENYLephrine 2.5 % 1 Drop (AK-DILATE, SUSAN-SYNEPHRINE) Start: 01-01-2024 End: 01-01-2024 PHENYLephrine 2.5 % 1 Drop ( AK-DILATE, SUSAN-SYNEPHRINE) Start: 10-05-2023 End: 10-05-2023 PHENYLephrine 2.5 % 1 Drop ( AK-DILATE, SUSAN-SYNEPHRINE) proparacaine hydrochloride 5 mg/ml ophthalmic solution (4 sources) Local Anesthetic Start: 07-25-2024 End: 07-25-2024 proparacaine 0.5 % 1 Drop (ALCAINE) Start: 01-01-2024 End: 01-01-2024 proparacaine 0.5 % 1 Drop (A LCAINE) Start: 10-05-2023 End: 10-05-2023 proparacaine 0.5 % 1 Drop (A LCAINE) tamsulosin hydrochloride 0.4 mg oral capsule (8 sources) alpha-Adrenergic Bahman tamsulo sin (FLOMAX) 0.4 mg Take 0.4 mg by mouth. Active Comment on above: Take 0.4 mg by mouth . traMADol hydrochloride 50 mg oral tablet (1 source) Opioid Agonist Start: 05-02-20 take 1 tablet by mouth every six hours as needed 50 mg, oral, Every 6 hours PRN, pain severe (7-10), first line, Starting on Thu05/02/24 at 1740, Phase II/On Unit, Max of 300 mg daily for patients > 75 years of age., If ordered PRN for pain, nurse is permitted to administer this medication for higher pain scores based on patient preference? Yes triamterene 50 mg oral capsule (12 sources) Potassium-sparing Diuretic Start: 12-18-19 End: 12-18-19 take 1 capsule by mouth twice daily triamterene (Dyrenium) 50 mg capsule Indications: HTN (hypertension), benign Take 1 capsule (50 mg) by mouth 2 times a day. 60 capsule 11 12/18/2023 12/17/2024 Active Start: 03-19-2022 take 1 capsule by mo [facility] once daily Triamterene 50 MG Oral Capsule TAKE 1 CAPSULE DAILY. Quantity: 90 Refills: 2 Ordered: 19-Mar-2022 Mellissa KRISHNAN, MPH, Segundo Heller Start : 19-Mar-2022 Active tropicamide 10 mg/ml ophthalmic solution (6 sources) Anticholinergic Start: 07-25-2024 End: 07-25-2024 tropicamide 1 % 1 Drop (MYDRIACYL) Start: 05-11-2024 End: 05-12-2024 tropicamide 1 % 1 Drop (MYDR IACYL) Start: 05-11-2024 End: 05-12-2024 1 Drop, BOTH EYES, DIRECT ED, Starting on Thu05/11/24 at 1500, Until Yessenia 05/12/24 at 0259, Administer for dilation Start: 01-01-2024 End: 01-01-2024 tropicamide 1 % 1 Drop (MYDR IACYL) Start: 10-05-2023 End: 10-05-2023 tropicamide 1 % 1 Drop (MYDR IACYL) Vitamin B 12 (20 sources) Vitamin B12 Start: 11-24-2024 Cyanocobalamin (Vitamin B-12) 3,000 mcg capsule Active 1500 ug PO DAILY November 24, 2024 12:00am Start: 02-01-2020 take 1 tablet under the tongue once daily cyanocobalamin, vitamin B-12, 1,000 mcg tablet, sublingual Place 1 tablet (1,000 mcg) under the tongue once daily. 02/01/2020 Active Comment on above: Dissolve under the t ongue. Completed/Discontinued Medications Medication Drug Class(es) Dates Sig (Normalized) Sig (Original) 24 hr alfuzosin hydrochloride 10 mg extended release oral tablet (9 sources) alpha-Adrenergic Bahman Start: 10-09-2021 take 1 tablet by mouth once daily Alfuzosin HCl ER 10 MG Oral Tablet Extended Release 24 Hour TAKE 1 TABLET DAILY. Quantity: 90 Refills: 3 Ordered: 09-Oct-2021 Alli Orona II, MD Start : 09-Oct-2021 Active amoxicillin 500 mg oral capsule (1 source) Penicillin-class Antibacterial Start: 09-18-2021 Amoxicillin 500 MG Oral Capsule Quantity: 14 Refills: 0 Ordered: 18-Sep-2021 DO Start : 18-Sep-2021 Complete amoxicillin 875 mg / clavulanate 125 mg oral tablet (1 source) Penicillin-class Antibacterial Start: 01-10-2022 Amoxicillin-Pot Clavulanate 875-125 MG Oral Tablet Quantity: 14 Refills: 0 Ordered: 10-Jan-2022 DO Start : 10-Jan-2022 Complete benzocaine 140 mg/ml / butamben 20 mg/ml / tetracaine 20 mg/ml mucosal spray (1 source) Karli Local Anesthetic, Standardized Chemical Allergen Start: 11-03-2023 End: 11-03-2023 Topical, As needed, Starting on Thu11/03/23 at 1411, Intraprocedure ceFAZolin 2000 mg injection (1 source) Cephalosporin Antibacterial Start: 05-02-2024 End: 05-02-2024 2 g, intravenous, Administer over 30 Minutes, Once, On 05/02/24 at 1345, For 1 dose, Preprocedure, Administer within 60 minutes prior to incision. premix bag, Dosing of this medication varies based on severity of illness. Does this patient have sepsis or concern for sepsis (probable or documented infection plus systemic manifestations of infection)? No, Suspected Indication (Select all that apply): Medical Prophylaxis, Indications: Medical Prophylaxis chlorhexidine gluconate 1.2 mg/ml mouthwash (1 source) Start: 03-31-2022 Chlorhexidine Gluconate 0.12 % Mouth/Throat Solution Quantity: 473 Refills: 0 Ordered: 31-Mar-2022 DO Start : 31-Mar-2022 Complete 1 ml fentaNYL 0.05 mg/ml injection (2 sources) Opioid Agonist Start: 11-03-2023 End: 11-03-2023 intravenous, As needed, Starting on Thu11/03/23 at 1415, Intraprocedure gadoterate meglumine (Dotarem) 0.5 mmol/mL contrast injection 16 mL (1 source) Start: 12-03-2023 End: 12-03-2023 inject 16 mL intravenously once 16 mL, intravenous, Once in imaging, Starting on Yessenia 12/03/23 at 1154, For 1 dose, Administer undiluted as rapid I.V. bolus injection iohexol (OMNIPaque) 350 mg iodine/mL solution 72 mL (1 source) Start: 08-15-2024 End: 08-15-2024 72 mL, intravenous, Once in imaging, Starting on Thu08/15/24 at 1524, For 1 dose 1.5 ml leuprolide acetate 30 mg/ml prefilled syringe (4 sources) Gonadotropin Releasing Hormone Receptor Agonist Start: 08-17-2024 End: 08-17-2024 leuprolide (6-month) (Lupron Depot) injection 45 mg Start: 08-17-2024 End: 08-17-2024 inject 1 dose by intramuscular injection every two hours 45 mg, intramuscular, Once, On Thu08/17/24 at 1330, For 1 dose, Administer as a single injection into the gluteal area, anterior thigh, or deltoid. Give within 2 hours of preparation. Hazardous Drug - Double Nitrile Glove, Gown. Administer as a single intraMUSCULAR injection into the gluteal area, anterior thigh, or deltoid. Injection site should be alternated. Administer within 2 hours of preparation. Start: 08-03-2024 inject 11.25 mg by i ntramuscular injection every three months Leuprolide (3 Month) (Lupron Depot (3 Month)) 11.25 mg syringe kit Active 11.25 mg IM every 3 months August 03, 2024 1:00am Start: 02-10-2024 leuprolide (6- month) (Lupron Depot) injection 45 mg menthol 0.0044 mg/mg / zinc oxide 0.2 mg/mg topical ointment (2 sources) Start: 02-01-2020 Zinc-Oxyde Plu s 0.44-20 % External Ointment Apply a thin layer to skin tag twice a day Quantity: 1 Refills: 0 Alan Whiteside MD Start : 01-Feb-2020 Active 57 GM Tube metFORMIN hydrochloride 500 mg oral tablet (20 sources) Biguanide Start: 09-12-2022 End: 12-16-2022 take 1 tablet by mouth in the morning metFORMIN (Glucophage) 500 mg tablet Indications: Type 2 diabetes mellitus without complication, without long-term current use of insulin (CMS/HCC) Take 1 tablet (500 mg) by mouth in the morning and 1 tablet (500 mg) before bedtime. 90 tablet 3 09/12/2022 12/16/2022 Discontinued (Therapy completed) Start: 09-10-2021 metFORMIN HCl - 1000 MG Oral Tablet Quantity: 180 Refills: 0 Ordered: 28-Sep-2021 DO Start : 10-Sep-2021 Complete Start: 10-31-2019 take 1 tablet by eva th twice daily metFORMIN (GLUCOPHAGE) 1000 MG tablet Take 1,000 mg by mouth 2 (two) times a day . 0 10/31/2019 Active Comment on above: Take 500 mg by mouth . 5 ml midazolam 1 mg/ml injection (3 sources) Benzodiazepine Start: 12-29-2023 End: 12-29-2023 1 mg, intravenous, Once, On Thu12/29/23 at 0630, For 1 dose, Preprocedure Start: 11-03-2023 End: 11-03-2023 intravenous, Administer over 5 Minutes, As needed, Starting on Thu11/03/23 at 1417, Intraprocedure perflutren lipid microspheres (Definity) injection 1.5 mL of dilution (1 source) Start: 03-16-2024 End: 03-16-2024 1.5 mL of dilution, intravenous, Once in imaging, Starting on Thu03/16/24 at 1217, For 1 dose, Contrast - for use by imaging provider only. Prior to administration, Definity product must be activated. First, bring vial to room temperature. Then, shake vial for 45 seconds. Do not use if the 45 second activation cycle has not been completed. Following activation, the product will appear as a milky white suspension and may be used immediately. If not used within 5 minutes of activation, re-suspend by inverting and shaking the vial for 10 seconds. Discard unused product. Administration: Dilute 1.3 mL of activated DEFINITY with 8.7 mL of normal saline in a 10 mL syringe. Inject 0.5 mL of diluted DEFINITY when notified the images/film are unclear to enhance view of Left Ventricular borders. Repeat 0.5 mL of DEFINITY until clear images are obtained, not to exceed 10 mLs. Once images are obtained or limit of medication is reached, flush line with 10 mL of Normal Saline. regadenoson (Lexiscan) injection 0.4 mg (1 source) Start: 03-08-2024 End: 03-08-2024 take 0.4 mg intravenously once 0.4 mg, intravenous, Once in imaging, Starting on Thu03/08/24 at 0824, For 1 dose, CV Medications, Administer slow IV push over 10 seconds. sulfamethoxazole 800 mg / trimethoprim 160 mg oral tablet (20 sources) Dihydrofolate Reductase Inhibitor Antibacterial, Sulfonamide Antimicrobial Start: 10-08-2022 take 1 tablet by mouth once daily Sulfamethoxazole-T rimethoprim 800-160 MG Oral Tablet Take 1 tablet daily Quantity: 30 Refills: 1 Ordered: 08-Oct-2022 Alli Orona II, MD Start : 08-Oct-2022 Active Start: 03-28-2022 End: 12-16-2022 take 1 tablet by mouth twice daily sulfamethoxazole-trimethoprim (Bactrim D S) 800-160 mg tablet Take 1 tablet by mouth 2 times a day. 0 03/28/2022 12/16/2022 Discontinued (Therapy completed) Start: 03-28-2022 take 1 tablet by eva th once in the morning sulfamethoxazole-trimethoprim (Bactrim D S) 800-160 mg tablet Take 1 tablet by mouth in the morning and 1 tablet before bedtime. 0 03/28/2022 Active Start: 10-09-2021 take 1 tablet by eva th twice daily Sulfamethoxazole-Trimethoprim 800-160 MG Oral Tablet Take 1 tablet twice daily Quantity: 10 Refills: 2 Ordered: 09-Oct-2021 Alli Orona II, MD Start : 09-Oct-2021 Active Tc-99m tetrofosmin (Myoview) injection 11.4 millicurie (1 source) Start: 03-08-2024 End: 03-08-2024 11.4 millicurie, intravenous, Once in imaging, Starting on Thu03/08/24 at 0650, For 1 dose, Administer 45 to 90 minutes prior to imaging unless otherwise indicated. Tc-99m tetrofosmin (Myoview) injection 35 millicurie (1 source) Start: 03-08-2024 End: 03-08-2024 35 millicurie, intravenous, Once in imaging, Starting on Thu03/08/24 at 0803, For 1 dose, Administer 45 to 90 minutes prior to imaging unless otherwise indicated. [id number] sodium (Draximage) injection 27 millicurie (1 source) Start: 01-26-2024 End: 01-26-2024 27 millicurie, intravenous, Once in imaging, Starting on Thu01/26/24 at 0941, For 1 dose, Administer 2 to 4 hours prior to imaging unless otherwise indicated. 250 ml vancomycin 5 mg/ml injection (1 source) Glycopeptide Antibacterial Start: 05-03-2024 End: 05-03-2024 1,250 mg (rounded from 1,215 mg = 15 mg/kg 81 kg), intravenous, at 200 mL/hr, Administer over 75 Minutes, Once, On Thu05/03/24 at 0500, For 1 dose, Premix bag, Dosing of this medication varies based on severity of illness. Does this patient have sepsis or concern for sepsis (probable or documented infection plus systemic manifestations of infection)? No, Suspected Indication (Select all that apply): Surgical Prophylaxis, Indications: Surgical Prophylaxis Problems Active Problems Problem Classification Problem Date Documented Da te Episodic/Chronic Abdominal hernia (18 sources) Left inguinal hernia ; Translations: [Inguinal hernia, without mention of obstruction or gangrene, unilateral or unspecified (not specified as recurrent)] Onset: 11-05-2022 Episodic Acute cerebrovascular disease (20 sources) Cerebrovascular accident; Translations: [Cerebral artery occlusion, unspecified with cerebral infarction] Onset: 07-31-2022 07-31-2022 Chronic Cancer of prostate (20 sources) Malignant tumor of prostate; Translations: [Malignant neoplasm of prostate] Onset: 01-20-2024 01-20-2024 Chronic Cardiac dysrhythmias (13 sources) Sick sinus syndrome; Translations: [Sick sinus syndrome] Onset: 03-25-2024 05-04-2024 Chronic Cataract (12 sources) Bilateral senile combined form cataracts of eyes; Translations: [Combined forms of age-related cataract, bilateral] Onset: 08-30-2014 Chronic Conduction disorders (20 sources) Left bundle branch block; Translations: [Other left bundle branch block] Onset: 07-31-2022 Resolved: 03-15-2024 07-31-2022 Chronic Coronary atherosclerosis and other heart disease (20 sources) Atherosclerotic heart disease of [place] coronary artery without angina pectoris; Translations: [Coronary arteriosclerosis] Onset: 03-08-2024 Chronic Diabetes mellitus with complications (20 sources) Polyneuropathy due to type 2 diabetes mellitus; Translations: [Type 2 diabetes mellitus with diabetic polyneuropathy] Onset: 07-31-2022 10-20-2023 Chronic Diabetes mellitus without complication (20 sources) Type 2 diabetes mellitus; Translations: [Diabetes mellitus without mention of complication, type II or unspecified type, not stated as uncontrolled] Onset: 03-17-2016 Chronic Disorders of lipid metabolism (20 sources) Hypertriglyceridemia; Translations: [Pure hyperglyceridemia] Onset: 07-31-2022 07-31-2022 Chronic Esophageal disorders (1 source) Gastro-esophageal reflux disease without esophagitis; Translations: [Gastro-esophageal reflux disease without esophagitis] Onset: 11-05-2022 Chronic Essential hypertension (20 sources) Benign hypertension; Translations: [Benign essential hypertension] Onset: 07-31-2022 07-31-2022 Chronic Genitourinary symptoms and ill-defined conditions (20 sources) Nocturia; Translations: [Nocturia] Onset: 07-31-2022 05-19-2023 Episodic Glaucoma (20 sources) Preglaucoma, unspecified, bilateral; Translations: [Preglaucoma, unspecified] Onset: 01-01-2024 Chronic Headache; including migraine (20 sources) Transformed migraine; Translations: [Migraine with aura, without mention of intractable migraine without mention of status migrainosus] Onset: 07-31-2022 Resolved: 03-14-2024 07-31-2022 Chronic Hyperplasia of prostate (20 sources) Benign prostatic hyperplasia; Translations: [Hypertrophy (benign) of prostate without urinary obstruction and other lower urinary tract symptom (LUTS)] Onset: 07-31-2022 05-19-2023 Chronic Immunizations and screening for infectious disease (20 sources) Patient encounter status; Translations: [Other specified vaccination] 11-05-2022 Episodic Late effects of cerebrovascular disease (1 source) Hemiplegia and hemiparesis following cerebral infarction affecting right dominant side; Translations: [Hemiplga following cerebral infrc aff right dominant side] Onset: 11-05-2022 Chronic Osteoarthritis (20 sources) Unilateral primary osteoarthritis, left hip; Translations: [Osteoarthritis] Onset: 04-15-2018 07-31-2022 Chronic Other acquired deformities (2 sources) Other forms of scoliosis, lumbar region; Translations: [OTHER FORMS SCOLIOSIS ARNOLD] Onset: 10-29-2017 Chronic Other aftercare (1 source) FDC (current) use of non-steroidal anti-inflammatories (NSAID); Translations: [FDC (current) use of non-steroidal non-inflam (NSAID)] Onset: 11-05-2022 Episodic Other aftercare (1 source) 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; Translations: [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] Onset: 11-05-2022 Episodic Other aftercare (1 source) FDC (current) use of opiate analgesic; Translations: [terminal computer operator (current) use of opiate analgesic] Onset: 11-05-2022 Episodic Other aftercare (1 source) Long-term current use of aspirin; Translations: [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] 11-05-2022 Episodic Other and ill-defined heart disease (20 sources) Cardiomegaly; Translations: [Cardiomegaly] Onset: 07-31-2022 07-31-2022 Chronic Other and ill-defined heart disease (2 sources) Cardiomegaly; Translations: [Cardiomegaly] Onset: 07-31-2022 Chronic Other circulatory disease (1 source) Personal history of transient ischemic attack (TIA), and cerebral infarction without residual deficits; Translations: [Prsnl hx of TIA (TIA), and cereb infrc w/o resid deficits] Onset: 10-21-2022 Episodic Other circulatory disease (1 source) History of cerebrovascular disease; Translations: [Personal history of transient ischemic attack (TIA), and cerebral infarction without residual deficits] 11-05-2022 Episodic Other connective tissue disease (1 source) Presence of unspecified artificial hip joint; Translations: [Presence of unspecified artificial hip joint] Onset: 11-05-2022 Chronic Other connective tissue disease (1 source) Presence of artificial hip joint, bilateral; Translations: [Presence of artificial hip joint, bilateral] Onset: 09-19-2022 Chronic Other connective tissue disease (1 source) Hip joint prosthesis present; Translations: [Presence of unspecified artificial hip joint] 11-05-2022 Chronic Other connective tissue disease (14 sources) Monoparesis - leg; Translations: [Other musculoskeletal symptoms referable to limbs] Episodic Other connective tissue disease (1 source) Other symptoms and signs involving the musculoskeletal system; Translations: [Oth symptoms and signs involving the musculoskeletal system] Onset: 10-15-2022 Episodic Other eye disorders (1 source) Hemorrhage in right optic nerve sheath; Translations: [Hemorrhage in optic nerve sheath, right eye] 09-09-2023 Chronic Other eye disorders (20 sources) Optic cupping; Translations: [Glaucomatous optic atrophy, bilateral] Onset: 01-01-2024 10-05-2023 Chronic Other eye disorders (1 source) Posterior vitreous detachment of left eye; Translations: [Vitreous degeneration, left eye] 05-11-2024 Chronic Other eye disorders (1 source) Vitreous floaters of left eye; Translations: [Other vitreous opacities, left eye] 05-11-2024 Chronic Other gastrointestinal disorders (1 source) Esophageal dysphagia; Translations: [Other dysphagia] 10-20-2023 Episodic Other gastrointestinal disorders (1 source) Dysphagia; Translations: [Dysphagia, unspecified] 11-03-2023 Episodic Other male genital disorders (3 sources) Impotence of organic origin; Translations: [Erectile dysfunction of organic origin] Chronic Other male genital disorders (20 sources) Secondary erectile dysfunction; Translations: [Impotence of organic origin] Onset: 07-31-2022 05-19-2023 Chronic Other male genital disorders (2 sources) Male erectile dysfunction, unspecified; Translations: [Male erectile dysfunction, unspecified] Onset: 07-31-2022 Chronic Other male genital disorders (1 source) Disorder of prostate, unspecified; Translations: [Disorder of prostate, unspecified] Onset: 09-19-2022 Episodic Other non-traumatic joint disorders (20 sources) Shoulder pain; Translations: [Pain in joint, shoulder region] Onset: 07-31-2022 07-31-2022 Episodic Other nutritional; endocrine; and metabolic disorders (20 sources) Obesity; Translations: [Obesity, unspecified] Chronic Other nutritional; endocrine; and metabolic disorders (16 sources) Morbid obesity; Translations: [Morbid obesity] Chronic Other nutritional; endocrine; and metabolic disorders (16 sources) Body mass index 40+ - severely obese; Translations: [Body Mass Index 40.0-44.9, adult] Chronic Residual codes; unclassified (15 sources) Pain; Translations: [Generalized pain] 09-12-2022 Episodic Residual codes; unclassified (1 source) Pain, unspecified; Translations: [Pain, unspecified] Onset: 10-15-2022 Episodic Residual codes; unclassified (6 sources) Personal history of other specified conditions; Translations: [Personal history of other specified conditions] Onset: 03-15-2024 Episodic Retinal detachments; defects; vascular occlusion; and retinopathy (11 sources) Bilateral epiretinal membrane of eyes; Translations: [Puckering of macula, bilateral] Onset: 08-30-2014 Chronic Spondylosis; intervertebral disc disorders; other back problems (20 sources) Degeneration of lumbosacral intervertebral disc; Translations: [Degeneration of lumbar or lumbosacral intervertebral disc] Onset: 07-31-2022 07-31-2022 Chronic Unclassified (1 source) Unknown / UNK(Unknown) Onset: 04-05-2018 Unclassified (2 sources) Wound Check; Translations: [Wound Check] Onset: 05-09-2024 Past or Other Problems Problem Classification Problem Date Documented Date Episodic/Chronic Allergic reactions (20 sources) Allergic disorder of skin; Translations: [Contact dermatitis and other eczema, unspecified cause] Onset: 07-31-2022 Resolved: 03-14-2024 07-31-2022 Episodic Blindness and vision defects (20 sources) Bilateral myopia of eyes; Translations: [Myopia, bilateral] Onset: 08-30-2014 Episodic Calculus of urinary tract (20 sources) Kidney stone; Translations: [Calculus of kidney] Onset: 07-31-2022 Resolved: 03-14-2024 Episodic Cardiac dysrhythmias (20 sources) Sinus bradycardia; Translations: [Bradycardia, unspecified] Onset: 03-08-2024 Resolved: 08-02-2024 03-15-2024 Episodic Diseases of mouth; excluding dental (4 sources) Chronic sialoadenitis; Translations: [Chronic sialoadenitis] Onset: 01-22-2022 Episodic Fluid and electrolyte disorders (2 sources) Hypo-osmolality and hyponatremia; Translations: [Hypo-osmolality and hyponatremia] Onset: 12-07-2023 Episodic Neoplasms of unspecified nature or uncertain behavior (20 sources) Neoplasm of uncertain behavior of skin of buttock; Translations: [Neoplasm of uncertain behavior of skin] Onset: 07-31-2022 Resolved: 03-14-2024 07-31-2022 Episodic Nonspecific chest pain (5 sources) Chest pain; Translations: [Chest pain, unspecified] Onset: 05-03-2024 05-03-2024 Episodic Nutritional deficiencies (20 sources) Cobalamin deficiency; Translations: [Other B-complex deficiencies] Onset: 07-31-2022 07-31-2022 Episodic Other aftercare (2 sources) FDC (current) use of insulin; Translations: [terminal computer operator (current) use of insulin (Multi)] Onset: 12-07-2023 Episodic Other connective tissue disease (1 source) Weakness of right leg; Translations: [Other symptoms and signs involving the musculoskeletal system] 09-12-2022 Episodic Other ear and sense organ disorders (20 sources) Tinnitus; Translations: [Tinnitus, unspecified] Onset: 07-31-2022 07-31-2022 Episodic Other eye disorders (20 sources) Optic disc hemorrhage; Translations: [Other disorders of optic disc, right eye] Onset: 01-01-2024 Resolved: 08-02-2024 10-05-2023 Chronic Other non-traumatic joint disorders (20 sources) Pain in right shoulder; Translations: [Right shoulder pain] Onset: 07-31-2022 07-31-2022 Episodic Other screening for suspected conditions (not mental disorders or infectious disease) (20 sources) Electrocardiogram abnormal; Translations: [Nonspecific abnormal electrocardiogram [ECG] [EKG]] Onset: 07-31-2022 Resolved: 08-02-2024 Episodic Other skin disorders (20 sources) Skin tag; Translations: [Unspecified hypertrophic and atrophic conditions of skin] Onset: 07-31-2022 07-31-2022 Episodic Paralysis (20 sources) Right hemiparesis; Translations: [Hemiplegia, unspecified, affecting unspecified side] Onset: 07-31-2022 Resolved: 11-24-2024 07-31-2022 Chronic Residual codes; unclassified (20 sources) History of syncope; Translations: [Personal history of other specified conditions] Onset: 03-15-2024 03-15-2024 Episodic Spondylosis; intervertebral disc disorders; other back problems (20 sources) Chronic low back pain; Translations: [Spinal stenosis] Onset: 07-31-2022 Resolved: 08-02-2024 07-31-2022 Episodic Syncope (20 sources) Vasovagal syncope; Translations: [Syncope and collapse] Onset: 04-12-2024 Resolved: 08-02-2024 10-20-2023 Episodic Unclassified (1 source) LEFT ANGÉLICA Onset: 04-16-2018 Unclassified (3 sources) Patient encounter status; Translations: [Encounter for immunization] Unclassified (20 sources) Onset: 09-12-2022 Resolved: 11-24-2024 09-12-2022 NEGATED: Highlighted row has not occurred!Residual codes; unclassified (18 sources) Disease Episodic Results Test Name Value Interpretation Reference Range Facility Discharge Instructionon 11-04 Discharge Instruction [facility] Medical Records Department [address] [place] [address] Instructions for Home/Discharge Instructions 11/30/24 0729 MR#: [id number] Acct: [id number] Name: ALLI THOMPSON Rep #: [id number] : 1950 74 From: Cheko Bhatia MD PCP: Dr. Donnell Mendoza MD Status:REG [facility] Discharge Instructions Diet Discharge Diet: No restrictions DC O2, CPAP, BIPAP needs Home O2 Discharge instructions: No Dressing / Incision Discharge Activity: Return to Normal Activity and May Not Drive (while taking narcotic pain medications.) Dressing / Incision Call your doctor if you observe: Fever of 101 or Higher Follow Up Care Please Follow Up With: Cheko Bhatia MD When: Call [phone] for an appointment Test Results: Test results from this visit will be discussed in further detail at your follow-up appointment, if applicable. Discharge Plan Admission Attending Provider: Cheko Bhatia Primary Care Provider: Donnell Mendoza Instructions Print Language: Palestinian Discharge Orders/Prescriptions Prescriptions: No Action Azo Cranberry Plus Probiotic 250-30-15 mg tablet 1 tab PO DAILY Lupron Depot (3 month) 11.25 mg syringe kit 11.25 mg IM [id number] amlodipine 5 mg tablet 5 mg PO QDAY aspirin 81 mg tablet,delayed release (DR/EC) 81 mg PO QHS Patient Comments: LAST DOSE 11/21/24 FOR SURGERY ON 11/30/24 atorvastatin 40 mg tablet 40 mg PO QHS lisinopril 40 mg tablet 40 mg PO QDAY metoprolol succinate 25 mg tablet extended release 24 hr 25 mg PO QDAY multivitamin Tablet 1 tab PO QAM triamterene-hydrochloroth iazid 37.5-25 mg tablet 1 tab PO QAM cyanocobalamin (vitamin B-12) 3,000 mcg capsule 1,500 mcg PO DAILY Referrals / Follow Up: Donnell Mendoza MD [Primary Care Provider] - Disposition Disposition (needs filled in before D/C Order can be placed): Home, Self Care 11/30/24728 Cheko Bhatia MD CC: Dr. Donnell Mendoza MD Signed [facility] MR/POSTOP.ANE 11-30-2024 MR/POSTOP.[facility] Medical Records Department [address] [place] [address] Anesthesia Postop Eval I 11/30/24803 MR#: [id number] Acct: [id number] Name: ALLI THOMPSON Rep #: [id number] : 1950 74 From: Vic Pham CREDIT HISTORIAN PCP: Dr. Donnell Mendoza MD Status:REG [facility] Y Race: C Location: [place] [address] Anesthesia: Postop Eval I Current Vital Signs Temperature: 98.3 F Pulse Rate: 64 Blood Pressure: 109/69 Respiratory Rate: 16 Pulse Ox: 94 Oxygen Delivery Method: Room Air Assessment Airway patent: Yes Spontaneous unlabored respirations: Yes Mental status: Awake and Calm nausea: No Vomiting: No Anesthesia Complication: No Fluid Hydration Crystalloid volume administer (ml): 500 Total IV fluid infused: 500 Progress Note Anesthesia document: Postop Eval 1 completed: Yes 11/30/24803 Date iVc Pham CREDIT HISTORIAN Cosigner Signature: Date CC: Signed [facility] [id number] 11-30-2024 MR/POST[address] Medical Records Department [address] [place] [address] Anesthesia Postop Eval II 11/30/24811 MR#: [id number] Acct: [id number] Name: ALLI THOMPSON Rep #: [id number] : 1950 74 From: Agnes Crabtree PCP: Dr. Donnell Mendoza MD Status:REG [facility] Y Race: C Location: [place] [address] Anesthesia Postop Eval I Sum Postop Eval Completion status Anesthesia document: Postop Eval 1 completed: Yes Anesthesia Postop Eval I Summary Anesthesia Postop Eval I Summary: Anesthesia Postop Eval I: Assessment Summary Airway patent Yes 11/30/24 08:04 CREDIT HISTORIAN.SOBR Spontaneous unlabored Yes 11/30/24 08:04 CREDIT HISTORIAN.SOBR respirations Mental status Awake,Calm 11/30/24 08:04 CREDIT HISTORIAN.SOBR nausea No 11/30/24 08:04 CREDIT HISTORIAN.SOBR Vomiting No 11/30/24 08:04 CREDIT HISTORIAN.SOBR Anesthesia Postop Eval I: Fluid Summary Crystalloid volume administer 500 11/30/24 08:04 CREDIT HISTORIAN.SOBR (ml) Colloids volume administered ( ml) Blood Product volume administered (ml) Total IV fluid infused 500 11/30/24 08:04 CREDIT HISTORIAN.SOBR Anesthesia Postop Eval I: Summary Notes Anesthesia Complication No 11/30/24 08:04 CREDIT HISTORIAN.SOBR Anesthesia Complication Comment: Post-operative progress note Anesthesia: Postop Eval II Evaluation Mental status: Awake Pain Level: 1 nausea: No Vomiting: No 11/30/24811 Date Agnes Leyva Signature: Date CC: Signed Normal [facility] Operative Reporton 5 Operative Report [facility] Medical Records Department [address] [place] [address] Operative Report 11/30/24751 MR#: [id number] Acct: [id number] Name: ALLI THOMPSON Rep #: [id number] : 1950 74 From: Cheko Bhatia MD PCP: Dr. 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 The penis and testicles and perineum were prepped and draped in usual sterile fashion placed an ultrasound probe into the rectum quite difficult to get the probe and was off-center but the prostate was very large. Then under ultrasound guidance I was able to place gold markers in the prostate I placed 3 gold markers in 3 different locations of the prostate the base the mid and the apex. After 3 gold markers were placed then we proceeded with placement of the spacer gel. His prostate was extremely fixed on exam was hard and very difficult to get the needle between the rectum and the prostate in the exact position I was finally able to get the needle between the rectum and the prostate but when I injected the spacer gel there was very little to no separation between the rectum and the prostate. I decided not to try again with anymore the spacer gel think the prostate is pretty fixed in the position spacer gel to go in but only created a small amount of space between the rectum and the prostate because of the fixed nature of the prostate. Successful placement of spacer gel but very little separation between the rectum the prostate. Surgical Findings: Very hard firm prostate could not get any real separation between the rectum and the prostate and a spacer gel appear to be fixed Complications Complications: No Admit VTE Documentation VTE Present on Admission: No VTE Mechan Device Prophylaxis: SCD's VTE Pharm Prophylaxis ordered?: No 11/30/24 0755 Cosigner Signature (if applicable): CC: Dr. Donnell Mendoza MD; Dr. Cheko Bhatia MD Signed [facility] MR/PAT.ANEon 11-25-2024 MR/PAT.[facility] Medical Records Department [address] [place] [address] PAT - Anesthesia 11/25/24 1337 MR#: [id number] Acct: [id number] Name: ALLI THOMPSON Rep #: [id number] : 1950 74 From: Juan Ramon Du MD PCP: Dr. 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 When Was Last Pacemaker Check QUESTION #4 FULL TEXT: You/Your Family Experience fever (hyperthermia) with Anesthesia Last Oral Intake Last Oral intake: Last Oral Intake NPO since Meds taken in AM with sips of water? Meds patient instructed to take am of surgery PONV PONV - hand spray operator: PONV - hand spray operator Female No 11/24/24 14:38 HX of Motion Sickness No 11/24/24 14:38 HX of N/V After Surgery No 11/24/24 14:38 Non-Smoker Yes 11/24/24 14:38 Duration of Surgery greater No 11/24/24 14:38 than 60 minutes Number of Risk Factors 1 11/24/24 14:38 PONV Score Low Risk 11/24/24 14:38 Height Weight Height Weight: Anesthesia: Height Weight Height 5 ft 6 in 08/03/24 10:05 Respiratory Assessment Respiratory Assessment - hand spray operator: Respiratory Tract Infection Hx - hand spray operator Hx Respiratory Tract Infection No 11/24/24 14:38 STOP Sleep Apnea STOP Sleep Apnea - hand spray operator: STOP Sleep Apnea - hand spray operator Hx Hypertension Yes: PER PT, CONTROLLED ON 11/24/24 14:38 MEDS Hx Sleep Apnea No 11/24/24 14:38 CPAP BIPAP Do you snore loudly (louder No 11/24/24 14:38 than talking or can be heard Do you often feel tired/ No 11/24/24 14:38 fatigued/ sleepy during daytime? Has anyone observed you stop No 11/24/24 14:38 breathing during sleep? STOP Results Negative 11/24/24 14:38 QUESTION #5 FULL TEXT : Do you snore loudly (louder than talking or can be heard through closed doors)? Tobacco Use History Tobacco Use History - hand spray operator: Tobacco Use History - hand spray operator Tobacco Use Smoking Status Never smoker 11/24/24 14:38 Hx Tobacco Use No 11/24/24 14:38 Years Smoking Packs Smoked per Day Smoking Cessation Date was within the last 15 years Hx Smoking Cessation Date Hx Smoking Cessation Counseling Hematologic Medial History Hematologic Hx - hand spray operator: Hematologic Medical Hx - plastic surgeon Hx of Blood Transfusion No 11/24/24 14:38 Hx of Transfusion in last 3 No 11/24/24 14:38 Months Date of Last Transfusion (if within last 3 months) Ever experience any problems No 11/24/24 14:38 with transfusion(s)? Specify any problems Hx of Preganancy in last 3 N/A 11/24/24 14:38 Months Nurse Filling Out Transfusion BRET 11/24/24 14:38 Questions: Date: 11/24/24 11/24/24 14:38 Time: 14:42 11/24/24 14:38 Patient unable to answer at this time (ie. confused, unrespo /Reproduction History /Reproductive History - hand spray operator: /Reproductive Hx- hand spray operator Hx Now Gestational Age (in weeks): EDC: Hx Hx Para Hx Section SAB PFSH Medical History (Updated 11/24/24 @ 14:54 by Tamra Lang) Wears glasses Arthritis Prostate disease Blackout Non-smoker Stroke/cerebrovascular accident History of edema History of echocardiogram History of stress test Cardiology follow-up encounter Rupture of urethra Bradycardia Hyperlipemia Hypertension Nocturia Prostate cancer Home Medications ???Medication ???Instructions ???Recorded ???Last Taken ???Type amlodipine 5 mg tablet 5 mg PO QDAY 08/01/24 Unknown Hist ory aspirin 81 mg tablet,delayed 81 mg PO QHS 08/01/24 11/21/24 His tory release atorvastatin 40 mg tablet 40 mg PO QHS 08/01/24 Unknown Hist ory lisinopril 40 mg tablet 40 mg PO QDAY 08/01/24 Unknown His tory metoprolol succinate 25 mg 25 mg PO QDAY 08/01/24 Unknown His tory tablet,extended release 24 hr multivitamin 1 tab PO QAM 08/01/24 Unknown Hist ory triamterene 37.5 1 tab PO QAM 08/01/24 (more content not included)... Normal [facility] BASIC METABOLIC PANEL WITH A NION GAPon 11-15-2024 Calcium [Mass/Vol] 9.5 mg/dL Normal 8.6-10.3 [facility] Comment on above: Performed By: #### 7 600, 02555, 995, 94469 #### [facility] [place] [address] Die Cast Operator: Corey Hein MD Chloride [Moles/Vol] 97 mmol/L Low 98-110 [facility] Comment on above: Performed By: #### 7 600, 56785, 846, 81963 #### [facility] [place] [address] Die Cast Operator: Corey Hein MD CO2 [Moles/Vol] 28 mmol/L Normal 20-32 [facility] Comment on above: Performed By: #### 7 600, 71945, 222, 66905 #### [facility] [place] [address] Die Cast Operator: Corey Hein MD Creatinine [Mass/Vol] 0.65 mg/dL Low 0.70-1.[address] [facility] Comment on above: Performed By: #### 7 600, 18005, 927, 75649 #### [facility] [place] [address] Die Cast Operator: Corey Hein MD ELECTROLYTE BALANCE 9 mmol/L (calc) Normal 7-17 [facility] Comment on above: Performed By: #### 7 600, 98187, 927, 77504 #### [facility] [place] [address] Die Cast Operator: Corey Hein MD GFR/1.73 sq M.predicted among non-blacks MDRD (S/P/Bld) [Vol rate/Area] 98 mL/min/{1.73_m2} Normal > OR = 60 [facility] Comment on above: Performed By: #### 7 600, 23404, 927, 10073 #### [facility] [place] [address] Die Cast Operator: Corey Hein MD Glucose [Mass/Vol] 109 mg/dL Normal 65-139 [facility] Comment on above: Result Comment: Non-fasting reference interval For someone without known diabetes, a glucose value between 100 and 125 mg/dL is consistent with prediabetes and should be confirmed with a follow-up test. Performed By: #### 7 600, 91102, 927, 99035 #### [facility] [place] [address] Die Cast Operator: Corey Hein MD Potassium [Moles/Vol] 3.9 mmol/L Normal 3.5-5.[address] [facility] [facility] Comment on above: Performed By: #### 7 600, 17777, 927, 74926 #### [facility] [place] [address] Die Cast Operator: Corey Hein MD Sodium [Moles/Vol] 134 mmol/L Low 135-146 [facility] Comment on above: Performed By: #### 7 600, 88575, 927, 26177 #### [facility] of [address], [address] [place] [address] Die Cast Operator: Corey Hein MD Urea nitrogen [Mass/Vol] 9 mg/dL Normal 7- [facility] Comment on above: Performed By: #### 7 600, 04761, 927, 78040 #### [facility] [address], [address] [place] [address] Die Cast Operator: Corey Hein MD Urea nitrogen/Creatinine [Mass ratio] 14 mg/mg Normal 6- [facility] Comment on above: Performed By: #### 7 600, 54173, 927, 19303 #### [facility] [address], [address] [place] [address] Die Cast Operator: Corey Hein MD HEMOGLOBIN A1c WITH eAGon eAG (mmol/L) 6.8 mmol/L Normal [facility] Comment on above: Performed By: #### 7 600, 07562, 927, 46980 #### [facility] [address], [address] [place] [address] Die Cast Operator: Corey Hein MD HbA1c (Bld) [Mass fraction] 5.9 % High <5.7 [facility] Comment on above: Result Comment: For someone without known diabetes, a hemoglobin A1c value between 5.7% and 6.4% is consistent with prediabetes and should be confirmed with a follow-up test. For someone with known diabetes, a value <7% indicates that their diabetes is well controlled. A1c targets should be individualized based on duration of diabetes, age, comorbid conditions, and other considerations. This assay result is consistent with an increased risk of diabetes. Currently, no consensus exists regarding use of hemoglobin A1c for diagnosis of diabetes for children. Performed By: #### 7 600, 86877, 927, 04631 #### [facility] [address], [address] [place] [address] Die Cast Operator: Corey Hein MD Magnesium [Mass/Vol] 123 mg/dL Normal [facility] Comment on above: Performed By: #### 7 600, 44488, 927, 61907 #### [facility] [address], [address] [place] [address] Die Cast Operator: Corey Hein MD LIPID PANEL, [facility] 11-03 Cholesterol [Mass/Vol] 115 mg/dL Normal <200 [facility] Comment on above: Order Comment: FASTI NG:NO FASTING: NO Performed By: #### 7 600, 78901, 927, 64975 #### [facility] [address], [address] [place] [address] Die Cast Operator: Corey Hein MD Cholesterol in HDL [Mass/Vol] 58 mg/dL Normal > OR = 40 [facility] Comment on above: Order Comment: FASTI NG:NO FASTING: NO Performed By: #### 7 600, 15040, 927, 11120 #### [facility] [address], [address] [place] [address] Die Cast Operator: Corey Hein MD Cholesterol in LDL [Mass/Vol] 41 mg/dL Normal [facility] Comment on above: Order Comment: FASTI NG:NO FASTING: NO Result Comment: Refe rence range: <100 Desirable range <100 mg/dL for primary prevention; <70 mg/dL for patients with CHD or diabetic patients with > or = 2 CHD risk factors. LDL-C is now calculated using the Sonido-Miguel Angel calculation, which is a validated novel method providing better accuracy than the Friedewald equation in the estimation of LDL-C. Sonido SS et al. EMRE. 2013;310(19): 4287-2854 (http://education.Bizzuka.Reality Mobile/faq/SYZ060) Performed By: #### 7 600, 57372, 927, 14819 #### [facility] [address], [address] [place] [address] Die Cast Operator: Corey Hein MD Cholesterol.total/Cho lesterol in HDL [Mass ratio] 2.0 {ratio} Normal <5.0 [facility] Comment on above: Order Comment: FASTI NG:NO FASTING: NO Performed By: #### 7 600, 78100, 927, 43433 #### [facility] [address], [address] [place] [address] Die Cast Operator: Corey Hein MD NON HDL CHOLESTEROL 57 mg/dL (calc) Normal <130 [facility] Comment on above: Order Comment: FASTI NG:NO FASTING: NO Result Comment: For patients with diabetes plus 1 major ASCVD risk factor, treating to a non-HDL-C goal of <100 mg/dL (LDL-C of <70 mg/dL) is considered a therapeutic option. Performed By: #### 7 600, 18175, 927, 24059 #### [facility] [address], [address] [place] [address] Die Cast Operator: Corey Hein MD Triglyceride [Mass/Vol] 78 mg/dL Normal <150 [facility] Comment on above: Order Comment: FASTI NG:NO FASTING: NO Performed By: #### 7 600, 66286, 927, 98879 #### [facility] [place] [address] Die Cast Operator: Corey Hein MD VITAMIN B12on 11-15-2024 Cobalamin (Vitamin B12) [Mass/Vol] 1754 pg/mL High 200-1100 [facility] Comment on above: Performed By: #### 7 600, 74773, 927, 70423 #### [facility] [place] [address] Die Cast Operator: Corey Hein MD CT PELVIS W IV CONTRASTon CT PELVIS W IV CONTRAST Interpreted By: Ronal Ohara, STUDY: CT PELVIS W IV CONTRAST; 08/15/2024 3:18 pm INDICATION: Signs/Symptoms:MALIGNANT NEOPLASM OF PROSTATE (MULTI). ,C61 Malignant neoplasm of prostate (Multi) COMPARISON: 09/20/2018 and prostate MRI dated 09/19/2022 ACCESSION NUMBER(S): [id number] ORDERING CLINICIAN: LINN IBRAHIM TECHNIQUE: CT of the pelvis was performed. Standard contiguous axial images were obtained at 3 mm slice thickness through pelvis. Coronal and sagittal reconstructions at 3 mm slice thickness were performed. 72 ML of Omnipaque 350 was administered intravenously without immediate complication. FINDINGS: The study is limited due to large amount of artifact from spinal hardware and bilateral hip prosthesis. PELVIS: REPRODUCTIVE ORGANS: The prostate gland is difficult to evaluate due to large amount of artifact from hip prosthesis. The heart appears to be heterogeneous and enlarged and contains calcifications. BLADDER: Bladder wall thickening is noted. There is a left-sided diverticulum which measures 3.5 cm. It appears to have increased since the prior exam. There is a soft tissue density at the level of the inferior aspect of the bladder which measures 4.9 x 3.4 cm. This most likely is a related to them enlarged prostate which extends into the bladder and was seen on the MRI of 09/19/2022. This areas difficult to the due to large amount of artifact from bilateral hip prosthesis. VESSELS: The aorta and IVC are normal in caliber. Vascular calcifications are seen. RETROPERITONEUM/PERITONEU M/LYMPH NODES: No ascites or free air. No fluid collection. No enlarged mesenteric lymph nodes. BOWEL: Normal caliber. No abnormal appendix is noted. ABDOMINAL WALL: Within normal limits. BONES: Bilateral hip prosthesis are seen which create artifact. Degenerative and postsurgical changes with hardware are seen in the lower lumbar spine. IMPRESSION: 1. Limited exam due to large amount of artifact from bilateral hip prosthesis. 2. Bladder wall thickening and bladder diverticulum, as described above. 3. Soft tissue density at the level of bladder which may be related to the enlarged prostate gland that was seen on the MRI of 09/19/2022 the bladder mass can not be excluded. MACRO: None Signed by: Ronal Ohara 08/17/2024 9:24 AM Dictation workstation: [id number] [facility] Comment on above: Order Comment: ORDER DATE 08/03/2024 Creatinineon 08-15-2024 Creatinine [Mass/Vol] 0.74 mg/dL Normal 0.50-1.30 [facility] Comment on above: Performed By: #### 2 160-0 ####BAKER ALEX ([id number])[facility] ([facility])[address] [place] [address] Creatinine [Mass/Vol]on 08-06 GFR/1.73 sq M.predicted MDRD (S/P/Bld) [Vol rate/Area] mL/min/{1.73_m2} Normal >60 [facility] Comment on above: Result Comment: Calc ulations of estimated GFR are performed using the 2020 CKD-EPI Study Refit equation without the race variable for the IDMS-Traceable creatinine methods. https://jasn.asnjournals.org/content/early//ASN.833287 5660 Performed By: #### 2 160-0 ####BAKER ALEX ([id number])[facility] ([facility])[address] [place] [address] Radiation Oncology Visiton 0 08-03-2024 Radiation Oncology Visit [facility] [address] [id number] OFFICE VISIT Date of Service: 08/03/24954 MR#: [id number] Acct: [id number] Name: ALLI THOMPSON Rep #: [id number] : 1950 From: Dorian Ibrahim DO Age/Sex: 74/M Location: [facility] Status: Signed Intake Vital Signs 08/03/24 10:05 Height 5 ft 6 in Weight: 192 lb 9 oz BMI 31.1 BP 160/93 H Blood Pressure Location Rt brachial Position Sitting Respiration 16 Pulse 79 Pulse Source Monitor Temp 97.2 F L Temperature Source Temporal Artery Pulse Oximetry (%) 97 Oxygen Delivery Method room air Intake Visit Reasons: PROSTATE CA Is patient in pain?: No Allergies No Known Allergies Allergy (Unverified 08/03/24 09:59) Medications ???Medication ???Instructions ???Recorded ???Confirmed ???Type amlodipine 5 mg tablet 5 mg PO QDAY 08/01/24 08/03/24 History aspirin 81 mg tablet,delayed 81 mg PO QDAY 08/01/24 08/03/24 History release atorvastatin 40 mg tablet 40 mg PO QHS 08/01/24 08/03/24 History cyanocobalamin (vitamin B-12) 1,000 mcg PO QDAY 08/01/24 08/03/24 History 1,000 mcg capsule lisinopril 40 mg tablet 40 mg PO QDAY 08/01/24 08/03/24 History metoprolol succinate 25 mg 25 mg PO QDAY 08/01/24 08/03/24 History tablet,extended release 24 hr multivitamin 1 tab PO QAM 08/01/24 08/03/24 History triamterene 37.5 1 tab PO QAM 08/01/24 08/03/24 History mg-hydrochlorothiazide 25 mg tablet cranberry [id number]-[id number] tab PO 08/03/24 08/03/24 History coagulans 250 mg-30 mg-15 mg tablet (Azo Cranberry Plus Probiotic) leuprolide (3 month) 11.25 mg (3 11.25 mg IM [id number] 08/03/24 08/03/24 History month) intramuscular syringe kit (Lupron Depot) Have you fallen in the past year?: No PFSH PFSH Medical History (Updated 08/03/24 @ 11:[address] Dorian Ibrahim, DO) Rupture of urethra Bradycardia Hyperlipemia Hypertension Nocturia Prostate cancer Home Medications ???Medication ???Instructions ???Recorded ???Last Taken ???Type amlodipine 5 mg tablet 5 mg PO QDAY 08/01/24 Unknown History aspirin 81 mg tablet,delayed 81 mg PO QDAY 08/01/24 Unknown History release atorvastatin 40 mg tablet 40 mg PO QHS 08/01/24 Unknown History cyanocobalamin (vitamin B-12) 1,000 mcg PO QDAY 08/01/24 Unknown History 1,000 mcg capsule lisinopril 40 mg tablet 40 mg PO QDAY 08/01/24 Unknown History metoprolol succinate 25 mg 25 mg PO QDAY 08/01/24 Unknown History tablet,extended release 24 hr multivitamin 1 tab PO QAM 08/01/24 Unknown History triamterene 37.5 1 tab PO QAM 08/01/24 Unknown History mg-hydrochlorothiazide 25 mg tablet cranberry fowz-P-ygyinssz tab PO 08/03/24 Unknown History coagulans 250 mg-30 mg-15 mg tablet (Azo Cranberry Plus Probiotic) leuprolide (3 month) 11.25 mg (3 11.25 mg IM [id number] 08/03/24 Unknown History month) intramuscular syringe kit (Lupron Depot) Allergy/AdvReac Type Severity Reaction Status Date / Time No Known Allergies Allergy Unverified 08/03/24 09:59 Surgical History (Updated 08/03/24 @ 10:03 by Patsy Bryan) History of spinal fusion History of bilateral hip replacements S/P placement of cardiac pacemaker Social History (Updated 08/03/24 @ 10:05 by Patsy Bryan) household members: spouse current occupational status: retired Smoking Status: Never smoker substance use type: does not use Referring Provider: Alli Orona MD Diagnosis: Alli Thompson is a 74 year-old male diagnosed with high risk prostate adenocarcinoma (cT1c PSA: 11.06, GS 4+4) status post MRI prostate (09/19/2022, 12/03/2023), prostate biopsy (12/29/2023), bone scan (01/26/2024), and initiation of Eligard (February 2024). History of Present Illness: 09/19/2022: Patient completed prostate MRI.??? There is a 1.4 x 1.2 cm right apical anterior peripheral zone demonstrating hypointense nodular T2 signal with focal early enhancement consistent with a PI- RADS 4 lesion.??? No seminal vesicle invasion or extracapsular extension.??? No abnormal appearing lymph nodes. 12/03/2023: Patient completed MRI prostate.??? There is evidence of a stable size of a 1.2 x 1.4 cm T2 hypointense lesion within the right apical posterior lateral peripheral zone which demonstrates segmental early arterial enhancement consistent with a PI-RADS 4 lesion.??? No seminal vesicle or extracapsular extension.??? No abnormal appearing pelvic lymph nodes. 12/29/2023: Patient completed prostate biopsy.??? Pathology demonstrated [place] 4+4 adenocarcinoma involving less than 5% of 1 of multiple fragments in the right prostate biopsy and 10% of 3 of multiple fragments in the area of interest biopsy #1.??? All remaining biopsies were negative. 01/26/2024: Bone scan was perfor (more content not included)... Normal [facility] ECG 12 lead (Clinic Performe d)on 08-02-2024 [facility] Work Phone: Atrial paced rhythm with HR of 80bpm, QRS 134ms, QT 392ms and [id number] *Please refer to scanned ECG for final report* [facility] Work Phone: FUNDUS PHOTOS OU (BOTH EYES) on 07-25-2024 [facility] Radiology Study observation (narrative) [facility] Prostate specific Agon 07-25 Prostate specific Ag [Mass/Vol] 0.27 ng/mL Normal <=4.00 [facility] Comment on above: Order Comment: The F DA requires that the method used for PSA assay be reported to the physician. Values obtained with different assay methods must not be used interchangeably. This test was performed at [facility] using the [employer] PSA assay is a two-site immunoenzymatic sandwichassay. The assay is approved for measurement of prostate-specific antigen (PSA)in serum and may be used in conjunction with a digital rectal examination in men 50 years and older as an aid in detection of prostate cancer.6-Mkbof-nugvaluaa inhibitors (e.g. Proscar, Finasteride, Avodart, Dutasteride and Tere) for the treatment of BPH have been shown to lower PSA levels by an average of 50% after 6 months of treatment. Performed By: #### 2 4321-2 #### OLIVIA JOHNSON ([id number]) [facility] [facility] ([facility]) [address] [place] [address] 38848 Basic metabolic 2000 panelon 05-17-2024 Anion gap [Moles/Vol] 8 mmol/L Low 10-20 [facility] Comment on above: Performed By: #### 2 4321-2 #### OLIVIA JOHNSON ([id number]) [facility] ([facility]) [address] [place] [address] 32514 Calcium [Mass/Vol] 9.5 mg/dL Normal 8.6-10.3 [facility] Comment on above: Performed By: #### 2 4321-2 #### OLIVIA JOHNSON ([id number]) [facility] ([facility]) [address] [place] [address] 58274 Chloride [Moles/Vol] 99 mmol/L Normal 98-107 [facility] Comment on above: Performed By: #### 2 4321-2 #### OLIVIA JOHNSON ([id number]) [facility] ([facility]) [address] [place] [address] 33465 CO2 [Moles/Vol] 30 mmol/L Normal 21-32 [facility] Comment on above: Performed By: #### 2 4321-2 #### OLIVIA JOHNSON ([id number]) [facility] ([facility]) [address] [place] [address] 19178 Creatinine [Mass/Vol] 0.66 mg/dL Normal 0.50-1.30 [facility] Comment on above: Performed By: #### 2 4321-2 #### OLIVIA JOHNSON ([id number]) [facility] ([facility]) [address] [place] [address] 55003 GFR/1.73 sq M.predicted MDRD (S/P/Bld) [Vol rate/Area] mL/min/{1.73_m2} Normal >60 [facility] Comment on above: Result Comment: Calc ulations of estimated GFR are performed using the 2020 CKD-EPI Study Refit equation without the race variable for the IDMS-Traceable creatinine methods. https://jasn.asnjournals.org/content/early//ASN.699129 7299 Performed By: #### 2 4321-2 #### OLIVIA JOHNSON ([id number]) [facility] ([facility]) [address] [place] [address] 55149 Glucose [Mass/Vol] 95 mg/dL Normal 74-99 [facility] Comment on above: Performed By: #### 2 4321-2 #### OLIVIA JOHNSON ([id number]) [facility] ([facility]) [address] [place] [address] 81299 Potassium [Moles/Vol] 3.9 mmol/L Normal 3.5-5.3 [facility] Comment on above: Performed By: #### 2 4321-2 #### OLIVIA JOHNSON ([id number]) [facility] ([facility]) [address] [place] [address] 85819 Sodium [Moles/Vol] 133 mmol/L Low 136-145 [facility] Comment on above: Performed By: #### 2 4321-2 #### OLIVIA JOHNSON ([id number]) [facility] ([facility]) [address] [id number] Urea nitrogen [Mass/Vol] 16 mg/dL Normal 6-23 [facility] Comment on above: Performed By: #### 2 4321-2 #### BAKER ALEX ([id number]) [facility] ([facility]) [address] [id number] OCT MACULA CIRRUS OU (BOTH E YES)on 05-11-2024 [facility] Radiology Study observation (narrative) [facility] ECG 12 lead (Clinic Performe d)on 05-05-2024 Paced rhythm [facility] Work Phone: CBC W Auto Differential pane l (Bld)on 05-03-2024 Basophils (Bld) [#/Vol] 0.06 10*3/uL [facility] Basophils/100 WBC (Bld) 0.7 % 0.0 - 2.0 % [facility] Eosinophils (Bld) [#/Vol] 0.27 10*3/uL [facility] Eosinophils/100 WBC (Bld) 3 % 0.0 - 6.0 % [facility] Erythrocyte distribution width (RBC) [Ratio] 12.8 % 11.5 - 14.5 % [facility] Hematocrit (Bld) [Volume fraction] 40.8 % Low 41.0 - 52.0 % [facility] Hemoglobin (Bld) [Mass/Vol] 14.2 g/dL 13.5 - 17.5 g/dL [facility] Immature granulocytes (Bld) [#/Vol] 0.01 10*3/uL [facility] Immature granulocytes/100 WBC (Bld) 0.1 % 0.0 - 0.9 % [facility] Comment on above: Immature Granulocyte Count (IG) includes promyelocytes, myelocytes and metamyelocytes but does not include bands. Percent differential counts (%) should be interpreted in the context of the absolute cell counts (cells/UL). Interpretation and review of laboratory results Abnormal [facility] Lymphocytes (Bld) [#/Vol] 1.29 10*3/uL [facility] Lymphocytes/100 WBC (Bld) 14.5 % 13.0 - 44.0 % [facility] MCH (RBC) [Entitic mass] 32.5 pg 26.0 - 34.0 pg [facility] MCHC (RBC) [Mass/Vol] 34.8 g/dL 32.0 - 36.0 g/dL [facility] MCV (RBC) [Entitic vol] 93 fL 80 - 100 fL [facility] Monocytes (Bld) [#/Vol] 0.73 10*3/uL [facility] Monocytes/100 WBC (Bld) 8.2 % 2.0 - 10.0 % [facility] Neutrophils (Bld) [#/Vol] 6.54 10*3/uL High [facility] Comment on above: Percent differential counts (%) should be interpreted in the context of the absolute cell counts (cells/uL). Neutrophils/100 WBC (Bld) 73.5 % 40.0 - 80.0 % [facility] Nucleated RBC/100 WBC (Bld) [Ratio] 0 % [facility] Platelets (Bld) [#/Vol] 177 10*3/uL [facility] RBC (Bld) [#/Vol] 4.37 10*6/uL Low [facility] WBC (Bld) [#/Vol] 8.9 10*3/uL [facility] Basophils (Bld) [#/Vol] 0.06 x10*3/uL Normal 0.00-0.10 [facility] Comment on above: Performed By: #### 5 7021-8 #### OLIVIA JOHNSON ([id number]) [facility] ([facility]) [address] [place] [address] 80171 Basophils/100 WBC (Bld) 0.7 % Normal 0.0-2.0 [facility] Comment on above: Performed By: #### 5 7021-8 #### OLIVIA JOHNSON ([id number]) [facility] ([facility]) [facility] [place] [address] Eosinophils (Bld) [#/Vol] 0.27 x10*3/uL Normal 0.00-0.40 [facility] Comment on above: Performed By: #### 5 7021-8 #### OLIVIA JOHNSON ([id number]) [facility] ([facility]) [address] [place] [address] 65582 Eosinophils/100 WBC (Bld) 3.0 % Normal 0.0-6.0 [facility] Comment on above: Performed By: #### 5 7021-8 #### OLIVIA JOHNSON ([id number]) [facility] ([facility]) [address] [place] [address] 81070 Erythrocyte distribution width (RBC) [Ratio] 12.8 % Normal 11.5-14.5 [facility] Comment on above: Performed By: #### 5 7021-8 #### OLIVIA JOHNSON ([id number]) [facility] ([facility]) [address] [place] [address] 04842 Hematocrit (Bld) [Volume fraction] 40.8 % Low 41.0-52.0 [facility] Comment on above: Performed By: #### 5 7021-8 #### OLIVIA JOHNSON ([id number]) [facility] ([facility]) [address] [place] [address] 30225 Hemoglobin (Bld) [Mass/Vol] 14.2 g/dL Normal 13.5-17.5 [facility] Comment on above: Performed By: #### 5 7021-8 #### OLIVIA JOHNSON ([id number]) [facility] ([facility]) [address] [place] [address] 24071 Immature granulocytes (Bld) [#/Vol] 0.01 x10*3/uL Normal 0.00-0.50 [facility] Comment on above: Performed By: #### 5 7021-8 #### OLIVIA JOHNSON ([id number]) [facility] ([facility]) [address] [place] [address] 20509 Immature granulocytes/100 WBC (Bld) 0.1 % Normal 0.0-0.9 [facility] Comment on above: Result Comment: Kasandra ture Granulocyte Count (IG) includes promyelocytes, myelocytes and metamyelocytes but does not include bands. Percent differential counts (%) should be interpreted in the context of the absolute cell counts (cells/UL). Performed By: #### 5 7021-8 #### OLIVIA JOHNSON ([id number]) [facility] ([facility]) [address] [place] [address] Lymphocytes (Bld) [#/Vol] 1.29 x10*3/uL Normal 0.80-3.00 [facility] Comment on above: Performed By: #### 5 7021-8 #### OLIVIA JOHNSON ([id number]) [facility] ([facility]) [address] [place] [address] Lymphocytes/100 WBC (Bld) 14.5 % Normal 13.0-44.0 [facility] Comment on above: Performed By: #### 5 7021-8 #### OLIVIA JOHNSON ([id number]) [facility] ([facility]) [address] [place] [address] MCH (RBC) [Entitic mass] 32.5 pg Normal 26.0-34.0 [facility] Comment on above: Performed By: #### 5 7021-8 #### OLIVIA JOHNSON ([id number]) [facility] ([facility]) [address] [place] [address] MCHC (RBC) [Mass/Vol] 34.8 g/dL Normal 32.0-36.0 [facility] Comment on above: Performed By: #### 5 7021-8 #### OLIVIA JOHNSON ([id number]) [facility] ([facility]) [address] [place], [place] [phone] MCV (RBC) [Entitic vol] 93 fL Normal 80-100 [facility] Comment on above: Performed By: #### 5 7021-8 #### OLIVIA OJHNSON ([id number]) [facility] ([facility]) [address] [place] [address] 85038 Monocytes (Bld) [#/Vol] 0.73 x10*3/uL Normal 0.05-0.80 [facility] Comment on above: Performed By: #### 5 7021-8 #### OLIVIA JOHNSON ([id number]) [facility] ([facility]) [address] [place] [address] 34498 Monocytes/100 WBC (Bld) 8.2 % Normal 2.0-10.0 [facility] Comment on above: Performed By: #### 5 7021-8 #### OLIVIA JOHNSON ([id number]) [facility] ([facility]) [address] [place] [address] 60906 Neutrophils (Bld) [#/Vol] 6.54 x10*3/uL High 1.60-5.50 [facility] Comment on above: Result Comment: Perc ent differential counts (%) should be interpreted in the context of the absolute cell counts (cells/uL). Performed By: #### 5 7021-8 #### OLIVIA JOHNSON ([id number]) [facility] ([facility]) [address] [place] [address] 49839 Neutrophils/100 WBC (Bld) 73.5 % Normal 40.0-80.0 [facility] Comment on above: Performed By: #### 5 7021-8 #### OLIVIA JOHNSON ([id number]) [facility] ([facility]) [address] [place] [address] 89926 Nucleated RBC/100 WBC (Bld) [Ratio] 0.0 /100 WBCs Normal 0.0-0.0 [facility] Comment on above: Performed By: #### 5 7021-8 #### OLIVIA JOHNSON ([id number]) [facility] ([facility]) [address] [place] [address] 23124 Platelets (Bld) [#/Vol] 177 x10*3/uL Normal 150-450 [facility] Comment on above: Performed By: #### 5 7021-8 #### OLIVIA JOHNSON ([id number]) [facility] ([facility]) [address] [place] [address] 14503 RBC (Bld) [#/Vol] 4.37 x10*6/uL Low 4.50-5.90 [facility] Comment on above: Performed By: #### 5 7021-8 #### BAKER ALEX ([id number]) [facility] ([facility]) [address] [place] [address] WBC (Bld) [#/Vol] 8.9 x10*3/uL Normal 4.4-11.3 [facility] Comment on above: Performed By: #### 5 7021-8 #### BAKER ALEX ([id number]) [facility] ([facility]) [address] [place] [address] CT CHEST WO IV CONTRASTon CT CHEST WO IV CONTRAST Interpreted By: Carli Bazan, STUDY: CT CHEST WO IV CONTRAST; 05/03/2024 5:53 pm INDICATION: Signs/Symptoms:chest pain. pacer placed yesterday. COMPARISON: CT scan of the chest 10/14/2023. ACCESSION NUMBER(S): [id number] ORDERING CLINICIAN: LEONID ANAYA TECHNIQUE: Axial CT images of the chest obtained without contrast. Coronal sagittal reformats were obtained. FINDINGS: VESSELS: Aorta and pulmonary artery are normal caliber. Atherosclerotic calcifications in the aorta. Lack of contrast limits evaluation of the vasculature. HEART: Normal size. No pericardial effusion. Aortic root, mitral annular and dense coronary artery calcifications noted. A left-sided dual lead pacer is present with leads in the right atrium and ventricle. MEDIASTINUM AND MCKENNA: No axillary or mediastinal adenopathy. Lack of contrast limits evaluation of the mckenna. Calcified right hilar lymph nodes noted. LUNG, PLEURA, AND LARGE AIRWAYS: Bibasilar atelectasis and or scarring. No consolidation, effusion or pneumothorax. A 2-3 mm pulmonary nodule in the right lower lobe as seen on axial image 168 of series 5, stable from prior CT. CHEST WALL AND LOWER NECK: There is subcutaneous soft tissue stranding with multiple locules of air in the left chest wall likely related to recent pacemaker placement. Locules of gas extend into the left axilla. No discrete drainable fluid collection is identified. UPPER ABDOMEN: Calcified hepatic granulomas noted. Cholelithiasis. Moderate to large stool burden. BONES: Bilateral shoulder osteoarthrosis. Multilevel degenerative changes of the spine. Postsurgical changes of lumbar spine fusion are partially imaged. IMPRESSION: There is subcutaneous soft tissue stranding with multiple locules of air in the left chest wall likely related to recent pacemaker placement. Locules of gas extend into the left axilla. No discrete drainable fluid collection is identified. A 2-3 mm pulmonary nodule in the right lower lobe is stable. Correlate with patient's risk factors for the need for follow-up per Fleischner guidelines. Findings suggestive of prior granulomatous infection. Additional findings as described above. MACRO: None Signed by: Carli Bazan 05/03/2024 6:52 PM Dictation workstation: [id number] [facility] CT Chest WO contraston 05-03 There is subcutaneou s soft tissue stranding with multiple locules of air in the left chest wall likely related to recent pacemaker placement. Locules of gas extend into the left axilla. No discrete drainable fluid collection is identified. A 2-3 mm pulmonary nodule in the right lower lobe is stable. Correlate with patient's risk factors for the need for follow-up per Fleischner guidelines. Findings suggestive of prior granulomatous infection. Additional findings as described above. MACRO: None Signed by: Carli Bazan 05/03/2024 6:52 PM Dictation workstation: [id number] MMODAL Interpreted By: Carli Fang, STUDY: CT CHEST WO IV CONTRAST; 05/03/2024 5:53 pm INDICATION: Signs/Symptoms:chest pain. pacer placed yesterday. COMPARISON: CT scan of the chest 10/14/2023. ACCESSION NUMBER(S): [id number] ORDERING CLINICIAN: LEONID ANAYA TECHNIQUE: Axial CT images of the chest obtained without contrast. Coronal sagittal reformats were obtained. FINDINGS: VESSELS: Aorta and pulmonary artery are normal caliber. Atherosclerotic calcifications in the aorta. Lack of contrast limits evaluation of the vasculature. HEART: Normal size. No pericardial effusion. Aortic root, mitral annular and dense coronary artery calcifications noted. A left-sided dual lead pacer is present with leads in the right atrium and ventricle. MEDIASTINUM AND MCKENNA: No axillary or mediastinal adenopathy. Lack of contrast limits evaluation of the mckenna. Calcified right hilar lymph nodes noted. LUNG, PLEURA, AND LARGE AIRWAYS: Bibasilar atelectasis and or scarring. No consolidation, effusion or pneumothorax. A 2-3 mm pulmonary nodule in the right lower lobe as seen on axial image 168 of series 5, stable from prior CT. CHEST WALL AND LOWER NECK: There is subcutaneous soft tissue stranding with multiple locules of air in the left chest wall likely related to recent pacemaker placement. Locules of gas extend into the left axilla. No discrete drainable fluid collection is identified. UPPER ABDOMEN: Calcified hepatic granulomas noted. Cholelithiasis. Moderate to large stool burden. BONES: Bilateral shoulder osteoarthrosis. Multilevel degenerative changes of the spine. Postsurgical changes of lumbar spine fusion are partially imaged. MMODAL Carli Bazan MD - 05/03/2024 Interpreted By: Carli Bazan, STUDY: CT CHEST WO IV CONTRAST; 05/03/2024 5:53 pm INDICATION: Signs/Symptoms:chest pain. pacer placed yesterday. COMPARISON: CT scan of the chest 10/14/2023. ACCESSION NUMBER(S): [id number] ORDERING CLINICIAN: LEONID ANAYA TECHNIQUE: Axial CT images of the chest obtained without contrast. Coronal sagittal reformats were obtained. FINDINGS: VESSELS: Aorta and pulmonary artery are normal caliber. Atherosclerotic calcifications in the aorta. Lack of contrast limits evaluation of the vasculature. HEART: Normal size. No pericardial effusion. Aortic root, mitral annular and dense coronary artery calcifications noted. A left-sided dual lead pacer is present with leads in the right atrium and ventricle. MEDIASTINUM AND MCKENNA: No axillary or mediastinal adenopathy. Lack of contrast limits evaluation of the mckenna. Calcified right hilar lymph nodes noted. LUNG, PLEURA, AND LARGE AIRWAYS: Bibasilar atelectasis and or scarring. No consolidation, effusion or pneumothorax. A 2-3 mm pulmonary nodule in the right lower lobe as seen on axial image 168 of series 5, stable from prior CT. CHEST WALL AND LOWER NECK: There is subcutaneous soft tissue stranding with multiple locules of air in the left chest wall likely related to recent pacemaker placement. Locules of gas extend into the left axilla. No discrete drainable fluid collection is identified. UPPER ABDOMEN: Calcified hepatic granulomas noted. Cholelithiasis. Moderate to large stool burden. BONES: Bilateral shoulder osteoarthrosis. Multilevel degenerative changes of the spine. Postsurgical changes of lumbar spine fusion are partially imaged. IMPRESSION: There is subcutaneous soft tissue stranding with multiple locules of air in the left chest wall likely related to recent pacemaker placement. Locules of gas extend into the left axilla. No discrete drainable fluid collection is identified. A 2-3 mm pulmonary nodule in the right lower lobe is stable. Correlate with patient's risk factors for the need for follow-up per Fleischner guidelines. Findings suggestive of prior granulomatous infection. Additional findings as described above. MACRO: None Signed by: Carli Bazan 05/03/2024 6:52 PM Dictation workstation: [id number] [facility] Work Phone: Radiology Study observation (narrative) [facility] Work Phone: CT Chest WO contrastOrdered By: Carli Bazan on 05-03-2024 [facility] Work Phone: Comprehensive metabolic 2000 panelon 05-03-2024 Albumin BCP dye [Mass/Vol] 4.2 g/dL 3.4 - 5.0 g/dL [facility] ALP [Catalytic activity/Vol] 78 U/L 33 - 136 U/L [facility] ALT With P-5'-P [Catalytic activity/Vol] 26 U/L 10 - 52 U/L [facility] Comment on above: Patients treated wit h Sulfasalazine may generate falsely decreased results for ALT. Anion gap [Moles/Vol] 10 mmol/L 10 - 2 0 mmol/L [facility] AST With P-5'-P [Catalytic activity/Vol] 24 U/L 9 - 39 U/L [facility] Bilirubin [Mass/Vol] 0.7 mg/dL 0.0 - 1 .2 mg/dL [facility] Calcium [Mass/Vol] 9.7 mg/dL 8.6 - 10. 3 mg/dL [facility] Chloride [Moles/Vol] 100 mmol/L 98 - 10 7 mmol/L [facility] CO2 [Moles/Vol] 25 mmol/L 21 - 32 mmol/L [facility] Creatinine [Mass/Vol] 0.84 mg/dL 0.50 - 1.30 mg/dL [facility] eGFR - PINF [facility] Comment on above: Calculations of cresencio mated GFR are performed using the 2020 CKD-EPI Study Refit equation without the race variable for the IDMS-Traceable creatinine methods. https://jasn.asnjournals.org/content/early/ASN.199131 8793 Glucose [Mass/Vol] 118 mg/dL High 74 - 99 mg/dL [facility] Interpretation and review of laboratory results Abnormal [facility] Potassium [Moles/Vol] 4 mmol/L 3.5 - 5.3 mmol/L [facility] Protein [Mass/Vol] 6.5 g/dL 6.4 - 8.2 g/dL [facility] Sodium [Moles/Vol] 131 mmol/L Low 136 - 145 mmol/L [facility] Urea nitrogen [Mass/Vol] 20 mg/dL 6 - 23 mg/dL [facility] Albumin BCP dye [Mass/Vol] 4.2 g/dL Normal 3.4-5.0 [facility] Comment on above: Performed By: #### 2 4323-8 #### OLIVIA JOHNSON ([id number]) [facility] ([facility]) [facility] [place] [address] ALP [Catalytic activity/Vol] 78 U/L Normal 33-136 [facility] Comment on above: Performed By: #### 2 4323-8 #### OLIVIA JOHNSON ([id number]) [facility] ([facility]) [facility] [place] [address] ALT With P-5'-P [Catalytic activity/Vol] 26 U/L Normal 10-52 [facility] Comment on above: Result Comment: Amanda ents treated with Sulfasalazine may generate falsely decreased results for ALT. Performed By: #### 2 4323-8 #### OLIVIA JOHNSON ([id number]) [facility] ([facility]) [address] [place] [address] 08133 Anion gap [Moles/Vol] 10 mmol/L Normal 10-20 [facility] Comment on above: Performed By: #### 2 4323-8 #### OLIVIA JOHNSON ([id number]) [facility] ([facility]) [address] [place] [address] AST With P-5'-P [Catalytic activity/Vol] 24 U/L Normal 9-39 [facility] Comment on above: Performed By: #### 2 4323-8 #### OLIVIA JOHNSON ([id number]) [facility] ([facility]) [address] [place] [address] Bilirubin [Mass/Vol] 0.7 mg/dL Normal 0.0-1.2 [facility] Comment on above: Performed By: #### 2 432-8 #### OLIVIA JOHNSON ([id number]) [facility] ([facility]) [address] [place] [address] 45856 Calcium [Mass/Vol] 9.7 mg/dL Normal 8.6-10.3 [facility] Comment on above: Performed By: #### 2 4322-8 #### OLIVIA JOHNSON ([id number]) [facility] ([facility]) [address] [place] [address] Chloride [Moles/Vol] 100 mmol/L Normal 98-107 [facility] Comment on above: Performed By: #### 2 4323-8 #### OLIVIA JOHNSON ([id number]) [facility] ([facility]) [address] [place] [address] CO2 [Moles/Vol] 25 mmol/L Normal 21-32 [facility] Comment on above: Performed By: #### 2 4323-8 #### OLIVIA JOHNSON ([id number]) [facility] ([facility]) [address] [place] [address] Creatinine [Mass/Vol] 0.84 mg/dL Normal 0.50-1.30 [facility] Comment on above: Performed By: #### 2 4323-8 #### OLIVIA JOHNSON ([id number]) [facility] ([facility]) [address] [place] [address] GFR/1.73 sq M.predicted MDRD (S/P/Bld) [Vol rate/Area] mL/min/{1.73_m2} Normal >60 [facility] Comment on above: Result Comment: Calc ulations of estimated GFR are performed using the 2020 CKD-EPI Study Refit equation without the race variable for the IDMS-Traceable creatinine methods. https://jasn.asnjournals.org/content//ASN.772343 0115 Performed By: #### 2 4323-8 #### OLIVIA JOHNSON ([id number]) [facility] ([facility]) [address] [place] [address] 51943 Glucose [Mass/Vol] 118 mg/dL High 74-99 [facility] Comment on above: Performed By: #### 2 4323-8 #### OLIVIA JOHNSON ([id number]) [facility] ([facility]) [address] [place] [address] 13827 Potassium [Moles/Vol] 4.0 mmol/L Normal 3.5-5.3 [facility] Comment on above: Performed By: #### 2 4323-8 #### OLIVIA JOHNSON ([id number]) [facility] ([facility]) [address] [place] [address] 58009 Protein [Mass/Vol] 6.5 g/dL Normal 6.4-8.2 [facility] Comment on above: Performed By: #### 2 4323-8 #### OLIVIA JOHNSON ([id number]) [facility] ([facility]) [address] [place] [address] 63011 Sodium [Moles/Vol] 131 mmol/L Low 136-145 [facility] Comment on above: Performed By: #### 2 4323-8 #### OLIVIA JOHNSON ([id number]) [facility] ([facility]) [address] [place] [address] 14286 Urea nitrogen [Mass/Vol] 20 mg/dL Normal 6-23 [facility] Comment on above: Performed By: #### 2 4323-8 #### OLIVIA JOHNSON ([id number]) [facility] ([facility]) [address] [place] [address] 04603 ECG 12-LEADon 05-03-2024 ECG 12-LEAD Ventricular Rate 61 Atrial Rate 61 P-R Interval 364 QRS Duration 140 Q-T Interval 432 QTC Calculation(Bazett) 434 P [place] 21 R [place] 268 T [place] 55 QRS Count 10 Q Onset 204 P Onset 34 P Offset 98 T Offset 420 QTC Fredericia 434 Diagnosis Atrial-paced rhythm with prolonged AV conduction Right bundle branch block Possible Lateral infarct (cited on or before 29-OCT-2022) Abnormal ECG When compared with ECG of 03-MAY-2024 16:15, (unconfirmed) T wave inversion now evident in Anterior leads See ED provider note for full interpretation and clinical correlation Confirmed by Leonid Anaya ([id number]) on 05/06/2024 5:22:03 PM [facility] ECG 12-LEAD Ventricular Rate 67 Atrial Rate 67 P-R Interval 360 QRS Duration 132 Q-T Interval 420 QTC Calculation(Bazett) 443 P [place] 73 R [place] 267 T [place] 71 QRS Count 11 Q Onset 204 P Onset 25 P Offset 92 T Offset 414 QTC Frederic[place] 436 Diagnosis Atrial-paced rhythm with prolonged AV conduction Right bundle branch block Possible Lateral infarct , age undetermined Abnormal ECG See ED provider note for full interpretation and clinical correlation Confirmed by Leonid Anaya ([id number]) on 05/06/2024 6:27:16 PM Normal [facility] ECG 12-LEAD Ventricular Rate 61 Atrial Rate 61 P-R Interval 408 QRS Duration 126 Q-T Interval 432 QTC Calculation(Bazett) 434 P [place] 43 R [place] -84 T [place] 15 QRS Count 10 Q Onset 209 T Offset 425 QTC [place] 434 Diagnosis Atrial-paced rhythm with prolonged AV conduction Left axis deviation Right bundle branch block Possible Lateral infarct (cited on or before 29-OCT-2022) Inferior infarct (cited on or before 02-MAY-2024) Abnormal ECG When compared with ECG of 02-MAY-2024 17:25, (unconfirmed) No significant change was found Confirmed by Randolph Bernal ([id number]) on 05/06/2024 10:42:30 AM [facility] Glucose Test strip manual (B ld) [Mass/Vol]on 05-03-2024 Glucose [Mass/Vol] 121 mg/dL High 74 - 99 mg/dL [facility] Interpretation and review of laboratory results Abnormal [facility] Glucose [Mass/Vol] 121 mg/dL High 74-99 [facility] Comment on above: Performed By: #### 2 341-6 #### BRYNN DEE ([id number]) [facility] ([facility]) [address] [place] [address] Glucose [Mass/Vol] 118 mg/dL High 74 - 99 mg/dL [facility] Interpretation and review of laboratory results Abnormal [facility] Glucose [Mass/Vol] 118 mg/dL High 74-99 [facility] Comment on above: Performed By: #### 2 341-6 #### BRYNN DEE ([id number]) [facility] ([facility]) [address] [place] [address] Light Blue Topon 05-03-2024 Extra Tube Hold for add-ons. [facility] Comment on above: Auto resulted. [facility] Magnesiumon 05-03-2024 Magnesium [Mass/Vol] 1.78 mg/dL 1.60 - 2.40 mg/dL [facility] Magnesium [Mass/Vol] 1.78 mg/dL Normal 1.60-2.40 [facility] Comment on above: Performed By: #### 1 9123-9 #### OLIVIA JOHNSON ([id number]) [facility] ([facility]) [address] [place] [address] Magnesium [Mass/Vol]on 05-03 Interpretation and review of laboratory results Normal [facility] No Panel Informationon 05-03 [facility] Tropinin I.cardiac panel Hig h sensitivity methodon 05-03-2024 Interpretation and review of laboratory results Abnormal [facility] Less than 99th perce ntile of normal range cutoff- Female and children under 18 years old <14 ng/L; Male <21 ng/L: Negative Repeat testing should be performed if clinically indicated. Female and children under 18 years old 14-50 ng/L; Male 21-50 ng/L: Consistent with possible cardiac damage and possible increased clinical risk. Serial measurements may help to assess extent of myocardial damage. >50 ng/L: Consistent with cardiac damage, increased clinical risk and myocardial infarction. Serial measurements may help assess extent of myocardial damage. NOTE: Children less than 1 year old may have higher baseline troponin levels and results should be interpreted in conjunction with the overall clinical context. NOTE: Troponin I testing is performed using a different testing methodology at [facility] than at other [facility]. Direct result comparisons should only be made within the same method. [facility] Interpretation and review of laboratory results Abnormal [facility] Less than 99th perce ntile of normal range cutoff- Female and children under 18 years old <14 ng/L; Male <21 ng/L: Negative Repeat testing should be performed if clinically indicated. Female and children under 18 years old 14-50 ng/L; Male 21-50 ng/L: Consistent with possible cardiac damage and possible increased clinical risk. Serial measurements may help to assess extent of myocardial damage. >50 ng/L: Consistent with cardiac damage, increased clinical risk and myocardial infarction. Serial measurements may help assess extent of myocardial damage. NOTE: Children less than 1 year old may have higher baseline troponin levels and results should be interpreted in conjunction with the overall clinical context. NOTE: Troponin I testing is performed using a different testing methodology at [facility] than at other [facility]. Direct result comparisons should only be made within the same method. [facility] Troponin I, High Sensitivity , Initialon 05-03-2024 Tropinin I.cardiac panel High sensitivity method 45 ng/L High 0 - 20 ng/L [facility] Troponin I.cardiac panelon 1 Tropinin I.cardiac panel High sensitivity method 44 ng/L High 0-20 [facility] Comment on above: Order Comment: Less than 99th percentile of normal range cutoff-Female and children under 18 years old <14 ng/L; Male <21 ng/L: NegativeRepeat testing should be performed if clinically indicated.Female and children under 18 years old 14-50 ng/L; Male 21-50 ng/L:Consistent with possible cardiac damage and possible increased clinicalrisk. Serial measurements may help to assess extent of myocardial damage.>50 ng/L: Consistent with cardiac damage, increased clinical risk andmyocardial infarction. Serial measurements may help assess extent ofmyocardial damage.NOTE: Children less than 1 year old may have higher baseline troponinlevels and results should be interpreted in conjunction with the overallclinical context.NOTE: Troponin I testing is performed using a differenttesting methodology at [facility] than at [facility]. Direct result comparisons should onlybe made within the same method. Performed By: #### 8 9577-1 ####OLIVIA JOHNSON ([id number])[facility] ([facility] [place] [address] Tropinin I.cardiac panel High sensitivity method 45 ng/L High 0-20 [facility] Comment on above: Order Comment: Less than 99th percentile of normal range cutoff-Female and children under 18 years old <14 ng/L; Male <21 ng/L: NegativeRepeat testing should be performed if clinically indicated.Female and children under 18 years old 14-50 ng/L; Male 21-50 ng/L:Consistent with possible cardiac damage and possible increased clinicalrisk. Serial measurements may help to assess extent of myocardial damage.>50 ng/L: Consistent with cardiac damage, increased clinical risk andmyocardial infarction. Serial measurements may help assess extent ofmyocardial damage.NOTE: Children less than 1 year old may have higher baseline troponinlevels and results should be interpreted in conjunction with the overallclinical context.NOTE: Troponin I testing is performed using a differenttesting methodology at [facility] than at [facility]. Direct result comparisons should onlybe made within the same method. Performed By: #### 8 9577-1 ####BAKER ALEX ([id number])[facility] ([facility])[address] [place] [address] Troponin, High Sensitivity, 1 Houron 05-03-2024 Tropinin I.cardiac panel High sensitivity method 44 ng/L High 0 - 20 ng/L [facility] XR CHEST 1 VIEWon 05-03-2024 XR CHEST 1 VIEW Interpreted By: Debbie Tracy, STUDY: XR CHEST 1 VIEW; 05/03/2024 4:38 pm INDICATION: Signs/Symptoms:Chest Pain. COMPARISON: 05/03/2024 ACCESSION NUMBER(S): [id number] ORDERING CLINICIAN: LEONID ANAYA FINDINGS: No consolidation. No pleural effusion or pneumothorax. Borderline heart size. No acute osseous abnormality. Left chest cardiac device. IMPRESSION: No acute cardiopulmonary abnormality. Signed by: Debbie Hawkins 05/03/2024 5:11 PM Dictation workstation: [id number] [facility] XR CHEST 2 VIEWSon XR CHEST 2 VIEWS Interpreted By: Marcelo Garner, STUDY: XR CHEST 2 VIEWS; 05/03/2024 9:37 am INDICATION: Signs/Symptoms:s/p PPM. COMPARISON: 03/12/2018 ACCESSION NUMBER(S): [id number] ORDERING CLINICIAN: ERA BAILON FINDINGS: Two view chest Left-sided transvenous pacemaker now present with leads overlying right atrium and ventricle. No obvious pneumothorax. Heart size stable. Cardiomediastinal silhouette appears grossly stable. Mild prominence aortic arch and thoracic aorta is grossly similar. There are some mild lucencies overlying the left scapula could be artifactual or small foci of subcutaneous/soft tissue gas. Nodular density overlying the left lung base measuring 8 mm. Osseous/calcific densities up to 1.7 cm just superior to the left acromioclavicular articulation could reflect fracture fragments of indeterminate age. Degenerative changes of the shoulders and acromioclavicular joints. Degenerative changes of the visualized spine. Relative increased density/sclerotic appearance midthoracic spine involving several midthoracic vertebral bodies, probably related to degenerative change and/or artifactual. IMPRESSION: 1. Status post left-sided transvenous pacemaker placement as described. No obvious pneumothorax. There are some foci of lucency overlying the left scapular region laterally of uncertain significance, could be small foci of subcutaneous/soft tissue gas such as related to recent procedure. Clinical correlation and follow-up advised. 2. 8 mm nodular density overlying the left lung base could represent nipple shadow or a true nodule. Follow-up to ensure stability or correlation with CT recommended. 3. Osseous/calcific densities just superior to the left acromioclavicular articulation could represent fracture fragments of indeterminate age. Correlate clinically and follow-up as indicated. 4. Degenerative changes visualized spine. Relative increased density/sclerotic appearance several midthoracic vertebral bodies, probably relating to degenerative change and/or artifactual. Correlation with bone scan may be considered for further assessment if clinically warranted. MACRO: None Signed by: Marcelo Velazco 05/03/2024 11:20 AM Dictation workstation: [id number] [facility] Comment on above: Order Comment: Torito r ead. Discharge pending film. XR Chest 2 Viewson 1. Status post left- sided transvenous pacemaker placement as described. No obvious pneumothorax. There are some foci of lucency overlying the left scapular region laterally of uncertain significance, could be small foci of subcutaneous/soft tissue gas such as related to recent procedure. Clinical correlation and follow-up advised. 2. 8 mm nodular density overlying the left lung base could represent nipple shadow or a true nodule. Follow-up to ensure stability or correlation with CT recommended. 3. Osseous/calcific densities just superior to the left acromioclavicular articulation could represent fracture fragments of indeterminate age. Correlate clinically and follow-up as indicated. 4. Degenerative changes visualized spine. Relative increased density/sclerotic appearance several midthoracic vertebral bodies, probably relating to degenerative change and/or artifactual. Correlation with bone scan may be considered for further assessment if clinically warranted. MACRO: None Signed by: Marcelo Velazco 05/03/2024 11:20 AM Dictation workstation: [id number] [facility] Interpreted By: Marcelo Garner, STUDY: XR CHEST 2 VIEWS; 05/03/2024 9:37 am INDICATION: Signs/Symptoms:s/p PPM. COMPARISON: 03/12/2018 ACCESSION NUMBER(S): [id number] ORDERING CLINICIAN: ERA BAILON FINDINGS: Two view chest Left-sided transvenous pacemaker now present with leads overlying right atrium and ventricle. No obvious pneumothorax. Heart size stable. Cardiomediastinal silhouette appears grossly stable. Mild prominence aortic arch and thoracic aorta is grossly similar. There are some mild lucencies overlying the left scapula could be artifactual or small foci of subcutaneous/soft tissue gas. Nodular density overlying the left lung base measuring 8 mm. Osseous/calcific densities up to 1.7 cm just superior to the left acromioclavicular articulation could reflect fracture fragments of indeterminate age. Degenerative changes of the shoulders and acromioclavicular joints. Degenerative changes of the visualized spine. Relative increased density/sclerotic appearance midthoracic spine involving several midthoracic vertebral bodies, probably related to degenerative change and/or artifactual. [facility] Marcelo Velazco, DO - 05/03/2024 Interpreted By: Marcelo Velazco, STUDY: XR CHEST 2 VIEWS; 05/03/2024 9:37 am INDICATION: Signs/Symptoms:s/p PPM. COMPARISON: 03/12/2018 ACCESSION NUMBER(S): [id number] ORDERING CLINICIAN: ERA BAILON FINDINGS: Two view chest Left-sided transvenous pacemaker now present with leads overlying right atrium and ventricle. No obvious pneumothorax. Heart size stable. Cardiomediastinal silhouette appears grossly stable. Mild prominence aortic arch and thoracic aorta is grossly similar. There are some mild lucencies overlying the left scapula could be artifactual or small foci of subcutaneous/soft tissue gas. Nodular density overlying the left lung base measuring 8 mm. Osseous/calcific densities up to 1.7 cm just superior to the left acromioclavicular articulation could reflect fracture fragments of indeterminate age. Degenerative changes of the shoulders and acromioclavicular joints. Degenerative changes of the visualized spine. Relative increased density/sclerotic appearance midthoracic spine involving several midthoracic vertebral bodies, probably related to degenerative change and/or artifactual. IMPRESSION: 1. Status post left-sided transvenous pacemaker placement as described. No obvious pneumothorax. There are some foci of lucency overlying the left scapular region laterally of uncertain significance, could be small foci of subcutaneous/soft tissue gas such as related to recent procedure. Clinical correlation and follow-up advised. 2. 8 mm nodular density overlying the left lung base could represent nipple shadow or a true nodule. Follow-up to ensure stability or correlation with CT recommended. 3. Osseous/calcific densities just superior to the left acromioclavicular articulation could represent fracture fragments of indeterminate age. Correlate clinically and follow-up as indicated. 4. Degenerative changes visualized spine. Relative increased density/sclerotic appearance several midthoracic vertebral bodies, probably relating to degenerative change and/or artifactual. Correlation with bone scan may be considered for further assessment if clinically warranted. MACRO: None Signed by: Marcelo Velazco 05/03/2024 11:20 AM Dictation workstation: [id number] [facility] Work Phone: Radiology Study observation (narrative) [facility] Work Phone: XR Chest 2 ViewsOrdered By: Marcelo Velazco on 05-03-2024 [facility] Work Phone: XR Chest Single viewon 05-03 No acute cardiopulmo nary abnormality. Signed by: Debbie Hawkins 05/03/2024 5:11 PM Dictation workstation: [id number] [facility] Interpreted By: Debbie Tracy, STUDY: XR CHEST 1 VIEW; 05/03/2024 4:38 pm INDICATION: Signs/Symptoms:Chest Pain. COMPARISON: 05/03/2024 ACCESSION NUMBER(S): [id number] ORDERING CLINICIAN: LEONID ANAYA FINDINGS: No consolidation. No pleural effusion or pneumothorax. Borderline heart size. No acute osseous abnormality. Left chest cardiac device. MMODAL Debbie Hawkins MD - 05/03/2024 Interpreted By: Debbie Hawkins, STUDY: XR CHEST 1 VIEW; 05/03/2024 4:38 pm INDICATION: Signs/Symptoms:Chest Pain. COMPARISON: 05/03/2024 ACCESSION NUMBER(S): [id number] ORDERING CLINICIAN: LEONID ANAYA FINDINGS: No consolidation. No pleural effusion or pneumothorax. Borderline heart size. No acute osseous abnormality. Left chest cardiac device. IMPRESSION: No acute cardiopulmonary abnormality. Signed by: Debbie Hawkins 05/03/2024 5:11 PM Dictation workstation: [id number] [facility] Work Phone: Radiology Study observation (narrative) [facility] Work Phone: XR Chest Single viewOrdered By: Debbie Hawkins on 05-03-2024 [facility] Work Phone: ECG 12-LEADon 05-02-2024 ECG 12-LEAD Ventricular Rate 60 Atrial Rate 58 P-R Interval 408 QRS Duration 124 Q-T Interval 434 QTC Calculation(Bazett) 434 R [place] -81 T [place] 70 QRS Count 9 Q Onset 207 T Offset 424 QTC Fredericia 434 Diagnosis Atrial-paced rhythm with prolonged AV conduction Left axis deviation Right bundle branch block Possible Lateral infarct (cited on or before 29-OCT-2022) Inferior infarct , age undetermined Abnormal ECG When compared with ECG of 02-MAY-2024 13:40, (unconfirmed) Electronic atrial pacemaker has replaced Sinus rhythm Inferior infarct is now Present Confirmed by Randolph Bernal ([id number]) on 05/06/2024 10:43:47 AM [facility] ECG 12-LEAD Ventricular Rate 68 Atrial Rate 68 P-R Interval 326 QRS Duration 140 Q-T Interval 444 QTC Calculation(Bazett) 472 P [place] 61 R [place] -82 T [place] 75 QRS Count 11 Q Onset 204 P Onset 41 P Offset 103 T Offset 426 QTC Fredericia 463 Diagnosis Sinus rhythm with 1st degree AV block Left axis deviation Right bundle branch block Possible Lateral infarct (cited on or before 29-OCT-2022) Abnormal ECG When compared with ECG of 08-MAR-2024 08:16, Vent. rate has increased BY 22 BPM Criteria for Anteroseptal infarct are no longer Present Questionable change in initial forces of Anterior leads Confirmed by Randolph Bernal ([id number]) on 05/06/2024 10:44:00 AM [facility] Electrophysiology studyon Images from the orig inal result were not included. Dual chamber pacemaker implantation Procedures: Implant of dual chamber PPM ([id number]) Patient history: Please refer to the detailed history and physical on the patient's medical chart. Procedure narrative: The patient was in the fasting state. A grounding pad was placed. The patient was set up for continuous monitoring of surface 12 lead ECG and pulse oximetry. Blood pressure was monitored. The procedure was performed under IV conscious sedation supplemented with intermittent moderate sedation. The Left upper chest was prepped and draped in the usual sterile fashion. Local anesthesia: After preoperative IV antibiotic was completely infused, subcutaneous tissues just medial to the Left deltopectoral area, were infiltrated with Lidocaine 1% with Bupivacaine 0.25% for local anesthesia. Using a #15 scalpel, an incision was made, which was extended to the left prepectoral fascia using blunt dissection. A pulse generator pocket was created. A venogram was obtained using 10cc of contrast via the left arm peripheral IV. The images were used to guide access. Under Fluoroscopic a Micropuncture needle was used to access the Left Brachiocephalic vein using Seldinger technique. Using similar technique, 1 more access was/were obtained. A 7F sheath was placed over of the guidewires. Initially we introduced a MDT hiss 315 sheath through the 7F sheath over a long 0.035 guidewire. Guidewire and inner dilator were removed and outer sheath was positioned at mid septum. A MDT 3830-lead was introduced to try attempt left bundle pacing. Multiple locations were attempted but did not have good thresholds in certain areas and good morphology and certain other areas at this point we then abandoned the 3830-lead and lead plus sheath were removed leaving the [address] [place] [address] Through the 7F sheath the RV pacing lead was then advanced to the heart via fluoroscopic guidance. The ventricle was mapped, and the lead was fixed to the right ventricular septum. Lead was positioned a total of 1 time(s) to get optimal lead parameters for its final location. After lead placement, appropriate sensing and thresholds were obtained. The sheath was peeled away. The sheath was peeled away. The lead was sutured in place to the pectoralis muscle using x3 of ties. A second 7F sheath was advanced over the guidewire, and the dilator and guidewire were removed. Under fluoroscopic guidance, a pacing lead was advanced to the heart, and the atrium was mapped. The lead was fixed to the right atrial appendage. Lead was positioned a total of 3 time(s) to get optimal lead parameters for its final location. Lead parameters were tested and noted to be appropriate and stable. The sheath was peeled away. The lead was sutured in place to the pectoralis muscle using x3 of ties. A dual chamber pacemaker pulse generator was attached to the leads and implanted. The device was interrogated and its parameters recorded; telemetered electrograms and pacing and sensing thresholds were measured. Antibiotic pouch Tyrx was used within the pocket. The pocket was flushed with Irricept solution. Wound hemostasis was obtained with electrocautery and FlowSeal. The wound was closed in three layers using #2-0 and #3-0 Vicryl. The skin was approximated with subcuticular suture (#4-0 Monocryl ) and skin adhesive. Steri-strips were applied, and the incision covered with a sterile dressing. Manual pressure was applied. Summary: Successful implantation of a Medtronic left sided Dual chamber pacemaker Final Implant Settings: Post implant device parameters scanned into the system Recommendations: Tentatively patient will be discharged Tomorrow after PA-lateral chest xray and device interrogation are done and provided the recovery parameters are appropriate. No Heparin/Lovenox/Anticoagu lation until cleared by EP Additional dose of antibiotics in 12 hours: Vancomycin IV A PA-lateral chest X-ray should be performed and telemetry monitoring continued for 24 hours. A 12 lead ECG should be performed prior to discharge from the hospital. Resume rest of home medications Discharge home with PO Abx Keflex 500mg BID x 7 Days Patient Instructions: Please do not lift left arm above shoulder level for 4-5 weeks No repetitive motion or lifting heavy weight for 4-5 weeks No alcohol or making legal decisions for 24 hours. Ok to take tylenol for any discomfort after the procedure Keep wound completely dry for 7 days; may shower but keep bandage as dry as possible. No soaking in hot tubs or baths for 10 days. May sponge bath Keep bandage on incision until seen in the office in 1 week. Allow steristrips underneath to fall off naturally. Please call our office ([employer]: [phone]) if you notice any discharge or swelling around incision or fever. Follow up: The (more content not included)... SYNGO_SECTRA _CARDIOLAB_X PER [facility] Work Phone: Glucose Test strip manual (B ld) [Mass/Vol]on 05-02-2024 Glucose [Mass/Vol] 162 mg/dL High 74 - 99 mg/dL [facility] Interpretation and review of laboratory results Abnormal [facility] Glucose [Mass/Vol] 162 mg/dL High 74-99 [facility] Comment on above: Performed By: #### 2 341-6 #### BRYNN DEE ([id number]) [facility] ([facility]) [address] [place] [address] Glucose [Mass/Vol] 102 mg/dL High 74 - 99 mg/dL [facility] Interpretation and review of laboratory results Abnormal [facility] Glucose [Mass/Vol] 102 mg/dL High 74-99 [facility] Comment on above: Performed By: #### 2 341-6 #### BRYNN DEE ([id number]) [facility] ([facility]) [address] [place] [address] Basic metabolic 2000 panelon 04-25-2024 Anion gap [Moles/Vol] 8 mmol/L Low 10-20 [facility] Comment on above: Performed By: #### 2 4321-2 #### OLIVIA JOHNSON ([id number]) [facility] ([facility]) [address] [place] [address] Calcium [Mass/Vol] 9.4 mg/dL Normal 8.6-10.3 [facility] Comment on above: Performed By: #### 2 4321-2 #### OLIVIA JOHNSON ([id number]) [facility] ([facility]) [address] [place] [address] Chloride [Moles/Vol] 99 mmol/L Normal 98-107 [facility] Comment on above: Performed By: #### 2 4321-2 #### OLIVIA JOHNSON ([id number]) [facility] ([facility]) [address] [place] [address] CO2 [Moles/Vol] 30 mmol/L Normal 21-32 [facility] Comment on above: Performed By: #### 2 4321-2 #### OLIVIA JOHNSON ([id number]) [facility] ([facility]) [address] [place] [address] Creatinine [Mass/Vol] 0.75 mg/dL Normal 0.50-1.30 [facility] Comment on above: Performed By: #### 2 4321-2 #### OLIVIA JOHNSON ([id number]) [facility] ([facility]) [address] [place] [address] GFR/1.73 sq M.predicted MDRD (S/P/Bld) [Vol rate/Area] mL/min/{1.73_m2} Normal >60 [facility] Comment on above: Result Comment: Calc ulations of estimated GFR are performed using the 2020 CKD-EPI Study Refit equation without the race variable for the IDMS-Traceable creatinine methods. https://jasn.asnjournals.org/content//ASN.784655 6264 Performed By: #### 2 4321-2 #### OLIVIA JOHNSON ([id number]) [facility] ([facility]) [address] [place] [address] Glucose [Mass/Vol] 105 mg/dL High 74-99 [facility] Comment on above: Performed By: #### 2 4321-2 #### OLIVIA JOHNSON ([id number]) [facility] ([facility]) [address] [place] [address] Potassium [Moles/Vol] 4.0 mmol/L Normal 3.5-5.3 [facility] Comment on above: Performed By: #### 2 4321-2 #### OLIVIA JOHNSON ([id number]) [facility] ([facility]) [address] [place] [address]449 Sodium [Moles/Vol] 133 mmol/L Low 136-145 [facility] Comment on above: Performed By: #### 2 4321-2 #### OLIVIA JOHNSON ([id number]) [facility] ([facility]) [address] [place] [address] 39571 Urea nitrogen [Mass/Vol] 13 mg/dL Normal 6-23 [facility] Comment on above: Performed By: #### 2 4321-2 #### OLIVIA JOHNSON ([id number]) [facility] ([facility]) [address] [place] [address]1951 CBC panel Auto (Bld)on 04-25 Erythrocyte distribution width (RBC) [Ratio] 13.2 % Normal 11.5-14.5 [facility] Comment on above: Performed By: #### 5 8410-2 #### OLIVIA JOHNSON ([id number]) [facility] ([facility]) [address] [place] [address] Hematocrit (Bld) [Volume fraction] 39.1 % Low 41.0-52.0 [facility] Comment on above: Performed By: #### 5 8410-2 #### OLIVIA JOHNSON ([id number]) [facility] ([facility]) [address] [place] [address] 23517 Hemoglobin (Bld) [Mass/Vol] 12.8 g/dL Low 13.5-17.5 [facility] Comment on above: Performed By: #### 5 8410-2 #### OLIVIA JOHNSON ([id number]) [facility] ([facility]) [address] [place] [address] 14611 MCH (RBC) [Entitic mass] 32.2 pg Normal 26.0-34.0 [facility] Comment on above: Performed By: #### 5 8410-2 #### OLIVIA JOHNSON ([id number]) [facility] ([facility]) [address] [place] [address] 69347 MCHC (RBC) [Mass/Vol] 32.7 g/dL Normal 32.0-36.0 [facility] Comment on above: Performed By: #### 5 8410-2 #### OLIVIA JOHNSON ([id number]) [facility] ([facility]) [address] [place] [address] 73532 MCV (RBC) [Entitic vol] 98 fL Normal 80-100 [facility] Comment on above: Performed By: #### 5 8410-2 #### OLIVIA JOHNSON ([id number]) [facility] ([facility]) [address] [place] [address] 15212 Nucleated RBC/100 WBC (Bld) [Ratio] 0.0 /100 WBCs Normal 0.0-0.0 [facility] Comment on above: Performed By: #### 5 8410-2 #### OLIVIA JOHNSON ([id number]) [facility] ([facility]) [address] [place] [address] 78615 Platelets (Bld) [#/Vol] 156 x10*3/uL Normal 150-450 [facility] Comment on above: Performed By: #### 5 8410-2 #### OLIVIA JOHNSON ([id number]) [facility] ([facility]) [address] [place] [address] RBC (Bld) [#/Vol] 3.98 x10*6/uL Low 4.50-5.90 [facility] Comment on above: Performed By: #### 5 8410-2 #### OLIVIA JOHNSON ([id number]) [facility] ([facility]) [address] [place] [address]69[address] WBC (Bld) [#/Vol] 4.8 x10*3/uL Normal 4.4-11.3 [facility] Comment on above: Performed By: #### 5 8410-2 #### OLIVIA JOHNSON ([id number]) [facility] ([facility]) [address] [place] [address] Prostate specific Agon 04-25 Prostate specific Ag [Mass/Vol] 0.41 ng/mL Normal <=4.00 [facility] Comment on above: Order Comment: The DA requires that the method used for PSA assay be reported to the physician. Values obtained with different assay methods must not be used interchangeably. This test was performed at [facility] using the [employer] PSA assay is a two-site immunoenzymatic sandwich assay. The assay is approved for measurement of prostate-specific antigen (PSA)in serum and may be used in conjunction with a digital rectal examination in men 50 years and older as an aid in detection of prostate cancer. 1-Bssjf-jtxobpwhw inhibitors (e.g. Proscar, Finasteride, Avodart, Dutasteride and Tere) for the treatment of BPH have been shown to lower PSA levels by an average of 50% after 6 months of treatment. Performed By: #### 2 857-1 #### OLIVIA JOHNSON ([id number]) [facility] ([facility]) [address] [place], [place] [id number] OCT OPTIC NERVE CIRRUS OU (B OTH EYES)on 04-20-2024 [facility] Study observation (narrative) [facility] VISUAL FIELD 24-2 OU (BOTH E YES)on 04-20-2024 [facility] Study observation (narrative) [facility] CARDIAC CATHETERIZATION PROC EDUREon 03-25-[address] 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 dyspnea on exertion believed to be from ischemia). Cardiac arrhythmia. LVEF Assessed: Yes. LVEF = 60%. Cardiac arrest: No. Cardiac surgical consult: No. Cardiovascular Instability: No Procedure Description: After infiltration with 2% Lidocaine, the right radial artery was cannulated with a modified Seldinger technique. Subsequently a 6 [place] sheath was placed in the right radial artery. Selective coronary catheterization was performed using a 5 Fr catheter(s) exchanged over a guide wire to cannulate the coronary arteries. A 5 Fr Royston catheter was used for left and right coronary artery injections. Multiple injections of contrast were made into the left and right coronary arteries with angiograms recorded in multiple projections. After completion of the procedure, the arterial sheath was pulled and a TR Band Radial Compression Device was utilized to obtain patent hemostasis. Coronary Angiography: The coronary circulation is right dominant. Left Main Coronary Artery: The left main coronary artery is a normal caliber vessel. The left main arises normally from the left coronary sinus of Valsalva and bifurcates into the LAD and circumflex coronary arteries. The left main coronary artery showed no significant disease or stenosis greater than 30%. Left Anterior Descending Coronary Artery Distribution: The left anterior descending coronary artery is a normal caliber vessel. The LAD arises normally from the left main coronary artery. The LAD demonstrated atherosclerotic disease and calcification. The mid left anterior descending coronary artery showed 95% stenosis. This lesion was diffuse and calcified. The 1st diagonal branch is a normal caliber vessel. The 1st diagonal branch showed atherosclerotic disease and calcification. The proximal to mid 1st diagonal branch revealed 95% stenosis. This lesion was calcified. Circumflex Coronary Artery Distribution: The circumflex coronary artery is a normal caliber vessel. The circumflex arises normally from the left main coronary artery and terminates in the AV groove. The circumflex revealed no significant disease or stenosis greater than 30%. The 1st obtuse marginal branch is a normal caliber vessel. The 1st obtuse marginal branch showed atherosclerotic disease and calcification. The proximal to mid 1st obtuse marginal branch showed 95% stenosis. This lesion was calcified. Right Coronary Artery Distribution: The right coronary artery is a normal caliber vessel. The RCA arises normally from the right sinus of Valsalva. The RCA showed no significant disease or stenosis greater than 30%. The right posterolateral branch is a medium-sized caliber vessel. The right posterolateral branch showed no significant disease or stenosis greater than 30%. The right posterior descending artery is a normal caliber vessel. The right posterior descending artery showed atherosclerotic disease and an occlusion. The mid right posterior descending artery revealed 100% stenosis. This lesion was diffuse. Collateral circulation from left system territory to RCA distribution. Left Ventriculography: The LV ejection fraction was 60 to 65%. All left ventricular regional wall segments contract normally. Coronary Lesion Summary: Vessel Stenosis Vessel Segment LAD 95% stenosis mid 1st Diagonal 95% stenosis proximal to mid OM 1 95% stenosis proximal to mid RPDA 100% stenosis mid Hemo Personnel: + -----+---------+ Name Duty + -----+---------+ Toby Henderson MD, MD 1 + -----+---------+ Hemodynamic Pressures: +----+ +--- -------+ +--- +-------+----- ----+ Site Date Time Phase Name Systolic mmHg Diastolic mmHg ED mmHg Mean mmHg +----+ +--- -------+ +--- +-------+----- ----+ LV 03/25/2024 AIR REST 122 -3 4 10:02:16 AM +----+ +--- -------+ +--- +-------+----- ----+ LV 03/25/2024 AIR REST 132 0 7 10:02:25 AM +----+ +--- -------+ +--- +-------+----- ----+ LVp (more content not included)... [facility] Cardiac catheterization stud n 03-25-2024 [facility] [address] [place] [address] ext-[phone], Cardiovascular Catheterization Report Patient Name: ALLI Serenity THOMPSNO Performing Physician: [id number] Hudson MD Study Date: 03/25/2024 Verifying Physician: Jose Hudson MD MRN/PID: [id number] Mail Machine Operator/Co-Scrub: Ordering Provider: [id number] HUDSON Date of /Age: 1 1950 / 73 years Mail Machine Operator: Gender: M Fellow: Surgeon: Study: Left Heart Cath Indications: ALLI THOMPSON is a 74 year old male who presents with hypertension, diabetes, dyslipidemia, sick sinus syndrome and an anginal equivalent chest pain assessment (i.e. dyspnea on exertion believed to be from ischemia). Cardiac arrhythmia. LVEF Assessed: Yes. LVEF = 60%. Cardiac arrest: No. Cardiac surgical consult: No. Cardiovascular Instability: No Procedure Description: After infiltration with 2% Lidocaine, the right radial artery was cannulated with a modified Seldinger technique. Subsequently a 6 [place] sheath was placed in the right radial artery. Selective coronary catheterization was performed using a 5 Fr catheter(s) exchanged over a guide wire to cannulate the coronary arteries. A 5 Fr Royston catheter was used for left and right coronary artery injections. Multiple injections of contrast were made into the left and right coronary arteries with angiograms recorded in multiple projections. After completion of the procedure, the arterial sheath was pulled and a TR Band Radial Compression Device was utilized to obtain patent hemostasis. Coronary Angiography: The coronary circulation is right dominant. Left Main Coronary Artery: The left main coronary artery is a normal caliber vessel. The left main arises normally from the left coronary sinus of Valsalva and bifurcates into the LAD and circumflex coronary arteries. The left main coronary artery showed no significant disease or stenosis greater than 30%. Left Anterior Descending Coronary Artery Distribution: The left anterior descending coronary artery is a normal caliber vessel. The LAD arises normally from the left main coronary artery. The LAD demonstrated atherosclerotic disease and calcification. The mid left anterior descending coronary artery showed 95% stenosis. This lesion was diffuse and calcified. The 1st diagonal branch is a normal caliber vessel. The 1st diagonal branch showed atherosclerotic disease and calcification. The proximal to mid 1st diagonal branch revealed 95% stenosis. This lesion was calcified. Circumflex Coronary Artery Distribution: The circumflex coronary artery is a normal caliber vessel. The circumflex arises normally from the left main coronary artery and terminates in the AV groove. The circumflex revealed no significant disease or stenosis greater than 30%. The 1st obtuse marginal branch is a normal caliber vessel. The 1st obtuse marginal branch showed atherosclerotic disease and calcification. The proximal to mid 1st obtuse marginal branch showed 95% stenosis. This lesion was calcified. Right Coronary Artery Distribution: The right coronary artery is a normal caliber vessel. The RCA arises normally from the right sinus of Valsalva. The RCA showed no significant disease or stenosis greater than 30%. The right posterolateral branch is a medium-sized caliber vessel. The right posterolateral branch showed no significant disease or stenosis greater than 30%. The right posterior descending artery is a normal caliber vessel. The right posterior descending artery showed atherosclerotic disease and an occlusion. The mid right posterior descending artery revealed 100% stenosis. This lesion was diffuse. Collateral circulation from left system territory to RCA distribution. Left Ventriculography: The LV ejection fraction was 60 to 65%. All left ventricular regional wall segments contract normally. Coronary Lesion Summary: Vessel Stenosis Vessel Segment LAD 95% stenosis mid 1st Diagonal 95% stenosis proximal to mid OM 1 95% stenosis proximal to mid RPDA 100% stenosis mid Hemo Personnel: + -----+---------+ Name Duty + -----+---------+ Toby Henderson MD, MD 1 + -----+------ (more content not included)... Toby Hunt MD - 03/25/2024 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 dyspnea on exertion believed to be from ischemia). Cardiac arrhythmia. LVEF Assessed: Yes. LVEF = 60%. Cardiac arrest: No. Cardiac surgical consult: No. Cardiovascular Instability: No Procedure Description: After infiltration with 2% Lidocaine, the right radial artery was cannulated with a modified Seldinger technique. Subsequently a 6 [place] sheath was placed in the right radial artery. Selective coronary catheterization was performed using a 5 Fr catheter(s) exchanged over a guide wire to cannulate the coronary arteries. A 5 Fr Royston catheter was used for left and right coronary artery injections. Multiple injections of contrast were made into the left and right coronary arteries with angiograms recorded in multiple projections. After completion of the procedure, the arterial sheath was pulled and a TR Band Radial Compression Device was utilized to obtain patent hemostasis. Coronary Angiography: The coronary circulation is right dominant. Left Main Coronary Artery: The left main coronary artery is a normal caliber vessel. The left main arises normally from the left coronary sinus of Valsalva and bifurcates into the LAD and circumflex coronary arteries. The left main coronary artery showed no significant disease or stenosis greater than 30%. Left Anterior Descending Coronary Artery Distribution: The left anterior descending coronary artery is a normal caliber vessel. The LAD arises normally from the left main coronary artery. The LAD demonstrated atherosclerotic disease and calcification. The mid left anterior descending coronary artery showed 95% stenosis. This lesion was diffuse and calcified. The 1st diagonal branch is a normal caliber vessel. The 1st diagonal branch showed atherosclerotic disease and calcification. The proximal to mid 1st diagonal branch revealed 95% stenosis. This lesion was calcified. Circumflex Coronary Artery Distribution: The circumflex coronary artery is a normal caliber vessel. The circumflex arises normally from the left main coronary artery and terminates in the AV groove. The circumflex revealed no significant disease or stenosis greater than 30%. The 1st obtuse marginal branch is a normal caliber vessel. The 1st obtuse marginal branch showed atherosclerotic disease and calcification. The proximal to mid 1st obtuse marginal branch showed 95% stenosis. This lesion was calcified. Right Coronary Artery Distribution: The right coronary artery is a normal caliber vessel. The RCA arises normally from the right sinus of Valsalva. The RCA showed no significant disease or stenosis greater than 30%. The right posterolateral branch is a medium-sized caliber vessel. The right posterolateral branch showed no significant disease or stenosis greater than 30%. The right posterior descending artery is a normal caliber vessel. The right posterior descending artery showed atherosclerotic disease and an occlusion. The mid right posterior descending artery revealed 100% stenosis. This lesion was diffuse. Collateral circulation from left system territory to RCA distribution. Left Ventriculography: The LV ejection fraction was 60 to 65%. All left ventricular regional wall segments contract normally. Coronary Lesion Summary: Vessel Stenosis Vessel Segment LAD 95% stenosis mid 1st Diagonal 95% stenosis proximal to mid OM 1 95% stenosis proximal to mid RPDA 100% stenosis mid Hemo Personnel: + -----+---------+ Name Duty + -----+---------+ Toby Henderson MD, MD 1 + -----+---------+ Hemodynamic Pressures: +----+ +--- -------+ +--- +-------+----- ----+ Site Date Time Phase Name Systolic mmHg Diastolic mmHg ED mmHg Mean mmHg +----+ +--- -------+ +--- +-------+----- ----+ LV 03/25/2024 AIR REST 122 -3 4 10:02:16 AM +----+ +--- -------+ +--- +-------+----- ----+ LV 03/25/2024 AIR REST 132 0 7 (more content not included)... [facility] Work Phone: [facility] Work Phone: Basic metabolic 2000 panelon 03-16-2024 Anion gap [Moles/Vol] 8 mmol/L Low 10-20 [facility] Comment on above: Performed By: #### 2 4321-2 #### OLIVIA JOHNSON ([id number]) [facility] ([facility]) [facility] [place] [address] Calcium [Mass/Vol] 9.5 mg/dL Normal 8.6-10.3 [facility] Comment on above: Performed By: #### 2 4321-2 #### OLIVIA JOHNSON ([id number]) [facility] ([facility]) [address] [place] [address] Chloride [Moles/Vol] 101 mmol/L Normal 98-107 [facility] Comment on above: Performed By: #### 2 4321-2 #### OLIVIA JOHNSON ([id number]) [facility] ([facility]) [address] [place] [address] CO2 [Moles/Vol] 32 mmol/L Normal 21-32 [facility] Comment on above: Performed By: #### 2 4321-2 #### OLIVIA JOHNSON ([id number]) [facility] ([facility]) [address] [place] [address] Creatinine [Mass/Vol] 0.77 mg/dL Normal 0.50-1.30 [facility] Comment on above: Performed By: #### 2 4321-2 #### OLIVIA JOHNSON ([id number]) [facility] ([facility]) [address] [place] [address] GFR/1.73 sq M.predicted MDRD (S/P/Bld) [Vol rate/Area] mL/min/{1.73_m2} Normal >60 [facility] Comment on above: Result Comment: Calc ulations of estimated GFR are performed using the 2020 CKD-EPI Study Refit equation without the race variable for the IDMS-Traceable creatinine methods. https://jasn.asnjournals.org/content//ASN.282437 3745 Performed By: #### 2 4321-2 #### OLIVIA JOHNSON ([id number]) [facility] ([facility]) [address] [place] [address] 58170 Glucose [Mass/Vol] 93 mg/dL Normal 74-99 [facility] Comment on above: Performed By: #### 2 4321-2 #### OLIVIA JOHNSON ([id number]) [facility] ([facility]) [address] [place] [address] 26611 Potassium [Moles/Vol] 3.9 mmol/L Normal 3.5-5.3 [facility] Comment on above: Performed By: #### 2 4321-2 #### OLIVIA JOHNSON ([id number]) [facility] ([facility]) [address] [place] [address] 59903 Sodium [Moles/Vol] 137 mmol/L Normal 136-145 [facility] Comment on above: Performed By: #### 2 4321-2 #### OLIVIA JOHNSON ([id number]) [facility] ([facility]) [address] [place] [address] 79029 Urea nitrogen [Mass/Vol] 14 mg/dL Normal 6-23 [facility] Comment on above: Performed By: #### 2 4321-2 #### OLIVIA JOHNSON ([id number]) [facility] ([facility]) [address] [place] [address] 70680 CBC panel Auto (Bld)on 03-16 Erythrocyte distribution width (RBC) [Ratio] 12.9 % Normal 11.5-14.5 [facility] Comment on above: Performed By: #### 5 8410-2 #### OLIVIA JOHNSON ([id number]) [facility] ([facility]) [address] [place] [address] [address]24 Hematocrit (Bld) [Volume fraction] 42.0 % Normal 41.0-52.0 [facility] Comment on above: Performed By: #### 5 8410-2 #### OLIVIA JOHNSON ([id number]) [facility] ([facility]) [address] [place] [address] 87403 Hemoglobin (Bld) [Mass/Vol] 14.0 g/dL Normal 13.5-17.5 [facility] Comment on above: Performed By: #### 5 8410-2 #### OLIVIA JOHNSON ([id number]) [facility] ([facility]) [address] [place] [address] 11871 MCH (RBC) [Entitic mass] 32.1 pg Normal 26.0-34.0 [facility] Comment on above: Performed By: #### 5 8410-2 #### OLIVIA JOHNSON ([id number]) [facility] ([facility]) [address] [place] [address] 14342 MCHC (RBC) [Mass/Vol] 33.3 g/dL Normal 32.0-36.0 [facility] Comment on above: Performed By: #### 5 8410-2 #### OLIVIA JOHNSON ([id number]) [facility] ([facility]) [address] [place] [address] 45125 MCV (RBC) [Entitic vol] 96 fL Normal 80-100 [facility] Comment on above: Performed By: #### 5 8410-2 #### OLIVIA JOHNSON ([id number]) [facility] ([facility]) [address] [place] [address] 46092 Nucleated RBC/100 WBC (Bld) [Ratio] 0.0 /100 WBCs Normal 0.0-0.0 [facility] Comment on above: Performed By: #### 5 8410-2 #### OLIVIA JOHNSON ([id number]) [facility] ([facility]) [address] [place] [address] 22973 Platelets (Bld) [#/Vol] 142 x10*3/uL Low 150-450 [facility] Comment on above: Performed By: #### 5 8410-2 #### OLIVIA JOHNSON ([id number]) [facility] ([facility]) [address] [place] [address] 28450 RBC (Bld) [#/Vol] 4.36 x10*6/uL Low 4.50-5.90 [facility] Comment on above: Performed By: #### 5 8410-2 #### OLIVIA JOHNSON ([id number]) [facility] ([facility]) [address] [place] [address] 17519 WBC (Bld) [#/Vol] 5.0 x10*3/uL Normal 4.4-11.3 [facility] Comment on above: Performed By: #### 5 8410-2 #### OLIVIA JOHNSON ([id number]) [facility] ([facility]) [address] [place], [place] [id number] CT CARDIAC SCORING WO IV CON TRASTon 03-16-2024 CT CARDIAC SCORING WO IV CONTRAST Interpreted By: Vinod Javier, STUDY: CT CARDIAC SCORING WO IV CONTRAST; 03/16/2024 12:41 pm INDICATION: Signs/Symptoms:bradycardi a. ,R00.1 Bradycardia, unspecified COMPARISON: None. ACCESSION NUMBER(S): [id number] ORDERING CLINICIAN: TOBY HUDSON TECHNIQUE: Using prospective ECG gating, CT scan of the coronary arteries was performed without intravenous contrast. Coronary calcium scoring was performed according to the method of Agatston. FINDINGS: The score and distribution of calcium in the coronary arteries is as follows: LM 308 LAD 3461.09 LCx 231 RCA 6296.68 Total 19667.77 The visualized mid/lower ascending thoracic aorta measures 3.9 cm in diameter. Calcification is seen in the aortic valves. Cardiomegaly with enlargement of left ventricle and atrium. No pericardial effusion is present. No gross evidence of mediastinal or hilar lymphadenopathy or masses is identified. The visualized segments of the lungs are normally expanded. The visualized subdiaphragmatic structures appear intact. IMPRESSION: 1. [place] [address].77*. *Coronary artery calcium scoring may be helpful in predicting the risk for future coronary heart disease events. According to the [employer] Clinical Expert Consensus Task Force, such testing provides important prognostic information in patients with more than one coronary heart disease risk factor. The coronary artery calcium score correlates with the annual risk of a non-fatal myocardial infarction or coronary heart disease . Coronary artery score Annual Risk 0-99 0.4% 100-399 1.3% >400 2.4% These three breakpoints correspond to lower, intermediate and high risk states for future coronary events. Such information should be used, along with appropriate clinical judgment, to make decisions regarding the intensity of risk factor management strategies to treat blood lipids and to modify other non-lipid coronary risk factors. Reference: [place] P et al. Circulation. 2007; 115:402-426 2. Cardiomegaly. 3. Ectasia of the ascending aorta. MACRO: None Signed by: Vinod Javier 03/21/2024 9:08 AM Dictation workstation: [id number] [facility] TRANSTHORACIC ECHO (TTE) COM PLETEon 03-16-2024 TRANSTHORACIC ECHO (TTE) [place] [address] ext-[phone], TRANSTHORACIC ECHOCARDIOGRAM REPORT Patient Name: ALLI THOMPSON Reading Physician: [id number] Ladarius Mills MD Study Date: 03/16/2024 Ordering Provider: [id number] TOBY HUDSON MRN/PID: [id number] Fellow: Nurse: Pearl Kuo RN Date of /Age: 1 1950 / 73 years Paper Cup Machine Operator: Michele Xie RDCS Gender: M Additional Staff: Height: 167.64 cm Admit Date: Weight: 81.65 kg Admission Status: Outpatient BSA / BMI: 1.91 m2 / 29.05 Department Location: [facility] Echo Lab kg/m2 Blood Pressure: 147 /60 mmHg Study Type: TRANSTHORACIC ECHO (TTE) COMPLETE Diagnosis/ICD: Bradycardia, unspecified-R00.1 CPT Codes: Echo Complete w Full Doppler-98026 Study Detail: The following Echo studies were performed: 2D, M-Mode, Doppler and color flow. Definity used as a contrast agent for endocardial border definition and agitated saline used as a contrast agent for intraseptal flow evaluation. Total contrast used for this procedure was 1.50cc mL via IV push. PHYSICIAN INTERPRETATION: Left Ventricle: The left ventricular systolic function is normal, with a Jerez's biplane calculated ejection fraction of 68%. There are no regional wall motion abnormalities. The left ventricular cavity size is normal. There is moderate concentric left ventricular hypertrophy. Left ventricular diastolic filling was indeterminate. Left Atrium: The left atrium is mildly dilated. A bubble study using agitated saline was performed. Bubble study is negative. Right Ventricle: The right ventricle is normal in size. There is normal right ventricular global systolic function. Right Atrium: The right atrium is normal in size. Aortic Valve: The aortic valve is probably trileaflet. There is evidence of mild aortic valve stenosis. The aortic valve dimensionless index is 0.47. There is trace aortic valve regurgitation. The peak instantaneous gradient of the aortic valve is 22.1 mmHg. The mean gradient of the aortic valve is 14.0 mmHg. Mitral Valve: The mitral valve is abnormal. There is no evidence of mitral valve regurgitation. Calcified mitral annulus and leaflets. Tricuspid Valve: The tricuspid valve is structurally normal. No evidence of tricuspid regurgitation. Pulmonic Valve: The pulmonic valve is not well visualized. There is trace pulmonic valve regurgitation. Pericardium: There is no pericardial effusion noted. Aorta: The aortic root is normal. Systemic Veins: The inferior vena cava appears dilated, less than 50% IVC collapse with inspiration. CONCLUSIONS: 1. The left ventricular systolic function is normal, with a Jerez's biplane calculated ejection fraction of 68%. 2. Left ventricular diastolic filling was indeterminate. 3. There is moderate concentric left ventricular hypertrophy. 4. There is normal right ventricular global systolic function. 5. Mild aortic valve stenosis. 6. Patient is bradycardic at the time of the echocardiogram. 7. No major changes compared to prior echocardiogram 12/22/2019. QUANTITATIVE DATA SUMMARY: 2D MEASUREMENTS: Normal Ranges: Ao Root d: 3.40 cm (2.0-3.7cm) LAs: 4.10 cm (2.7-4.0cm) IVSd: 1.58 cm (0.6-1.1cm) LVPWd: 1.78 cm (0.6-1.1cm) LVIDd: 3.65 cm (3.9-5.9cm) LVIDs: 2.42 cm LV Mass Index: 129.0 g/m2 LV % FS 33.7 % LA VOLUME: Normal Ranges: LA Vol A4C: 59.2 ml (22+/-6mL/m2) LA Vol A2C: 36.7 ml LA Vol BP: 48.3 ml LA Vol Index A4C: 30.9ml/m2 LA Vol Index A2C: 19.2 ml/m2 LA Vol Index BP: 25.3 ml/m2 LA Area A4C: 20.3 cm2 LA Area A2C: 15.4 cm2 LA Major [place] A4C: 5.9 cm LA Major [place] A2C: 5.5 cm LA Volume Index: 30.6 ml/m2 LA Vol A4C: 58.4 ml LA Vol A2C: 37.4 ml LA Vol Index BSA: 25.0 ml/m2 LV SYSTOLIC FUNCTION BY 2D PLANIMETRY (MOD): Normal Ranges: EF-A4C View: 69 % (>=55%) EF-A2C View: 66 % EF-Biplane: 68 % LV EF Reported: 68 % LV DIASTOLIC FUNCTION: Normal Ranges: MV Peak E: 1.30 m/s (0.7-1.2 m/s) MV Peak A: 1.08 m/s (0.42-0.7 m/s) E/A Ratio: 1.20 (1.0-2.2) MITRAL VALVE: Normal Ranges: MV DT: 306 msec (150-240msec) AORTIC VALVE: Normal Ranges: AoV Vmax: 2.35 m/s (<=1.7m/s) AoV Peak P.1 mmHg (<20mmHg) AoV Mean P.0 mmHg (1.7-11.5mmHg) LVOT Max Kirsty: 1.15 m/s (<=1.1m/s) AoV VTI: 70.90 cm (18-25cm) LVOT VTI: 33.20 cm LVOT Diameter: 2.00 cm (1.8-2.4cm) AoV Area, VTI: 1.47 cm2 (2.5-5.5cm2) AoV Area,Vmax: 1.54 cm2 (2.5-4.5cm2) AoV Dimensionless Index: 0.47 AORTIC INSUFFICIENCY: AI Vmax: 4.09 m/s AI Half-time: 932 msec AI Decel Rate: 129.00 cm/s2 RIGHT VENTRICLE: RV Basal 4.60 cm RV Mid 2.99 cm RV Major 8.5 cm TAPSE: 26.3 mm [id number] Ladarius Mills MD Electronically signed on 03/16/2024 at 3:57:57 PM Final Normal [facility] US Heart TransthoracicOrdere d By: Ladarius Mills on 03-16-2024 Aortic Valve Area by Continuity of Peak Velocity 1.54 cm2 [facility] Work Phone: 39 Aortic Valve Area by Continuity of VTI 1.47 cm2 [facility] Work Phone: 39 AV mn grad 14.0 mmHg [facility] Work Phone: 39 AV pk grad 22.1 mmHg [facility] Work Phone: 39 AV pk kirsty 2.35 m/s [facility] Work Phone: 39 LA vol index A/L 25.3 ml/m2 [facility] Work Phone: 39 LV A4C EF 69.5 [facility] Work Phone: 39 LV Biplane EF 68 % [facility] Work Phone: 39 LV EF 68 % [facility] Work Phone: 39 LVIDd 3.65 cm [facility] Work Phone: 39 LVOT diam 2.00 cm [facility] Work Phone: 39 MV E/A ratio 1.20 [facility] Work Phone: [phone] Tricuspid annular plane systolic excursion 2.6 cm [facility] Work Phone: [phone] [facility] Work Phone: [phone] [place] [address] ext-[phone], TRANSTHORACIC ECHOCARDIOGRAM REPORT Patient Name: ALLI THOMPSON Reading Physician: [id number] Ladarius Mills MD Study Date: 03/16/2024 Ordering Provider: [id number] TOBY HUDSON MRN/PID: [id number] Fellow: Nurse: Pearl Kuo RN Date of /Age: 1 1950 / 73 years Paper Cup Machine Operator: Michele Xie RD Gender: M Additional Staff: Height: 167.64 cm Admit Date: Weight: 81.65 kg Admission Status: Outpatient BSA / BMI: 1.91 m2 / 29.05 Department Location: [facility] Echo Lab kg/m2 Blood Pressure: 147 /60 mmHg Study Type: TRANSTHORACIC ECHO (TTE) COMPLETE Diagnosis/ICD: Bradycardia, unspecified-R00.1 CPT Codes: Echo Complete w Full Doppler-35159 Study Detail: The following Echo studies were performed: 2D, M-Mode, Doppler and color flow. Definity used as a contrast agent for endocardial border definition and agitated saline used as a contrast agent for intraseptal flow evaluation. Total contrast used for this procedure was 1.50cc mL via IV push. PHYSICIAN INTERPRETATION: Left Ventricle: The left ventricular systolic function is normal, with a Jerez's biplane calculated ejection fraction of 68%. There are no regional wall motion abnormalities. The left ventricular cavity size is normal. There is moderate concentric left ventricular hypertrophy. Left ventricular diastolic filling was indeterminate. Left Atrium: The left atrium is mildly dilated. A bubble study using agitated saline was performed. Bubble study is negative. Right Ventricle: The right ventricle is normal in size. There is normal right ventricular global systolic function. Right Atrium: The right atrium is normal in size. Aortic Valve: The aortic valve is probably trileaflet. There is evidence of mild aortic valve stenosis. The aortic valve dimensionless index is 0.47. There is trace aortic valve regurgitation. The peak instantaneous gradient of the aortic valve is 22.1 mmHg. The mean gradient of the aortic valve is 14.0 mmHg. Mitral Valve: The mitral valve is abnormal. There is no evidence of mitral valve regurgitation. Calcified mitral annulus and leaflets. Tricuspid Valve: The tricuspid valve is structurally normal. No evidence of tricuspid regurgitation. Pulmonic Valve: The pulmonic valve is not well visualized. There is trace pulmonic valve regurgitation. Pericardium: There is no pericardial effusion noted. Aorta: The aortic root is normal. Systemic Veins: The inferior vena cava appears dilated, less than 50% IVC collapse with inspiration. CONCLUSIONS: 1. The left ventricular systolic function is normal, with a Jerez's biplane calculated ejection fraction of 68%. 2. Left ventricular diastolic filling was indeterminate. 3. There is moderate concentric left ventricular hypertrophy. 4. There is normal right ventricular global systolic function. 5. Mild aortic valve stenosis. 6. Patient is bradycardic at the time of the echocardiogram. 7. No major changes compared to prior echocardiogram 12/22/2019. QUANTITATIVE DATA SUMMARY: 2D MEASUREMENTS: Normal Ranges: Ao Root d: 3.40 cm (2.0-3.7cm) LAs: 4.10 cm (2.7-4.0cm) IVSd: 1.58 cm (0.6-1.1cm) LVPWd: 1.78 cm (0.6-1.1cm) LVIDd: 3.65 cm (3.9-5.9cm) LVIDs: 2.42 cm LV Mass Index: 129.0 g/m2 LV % FS 33.7 % LA VOLUME: Normal Ranges: LA Vol A4C: 59.2 ml (22+/-6mL/m2) LA Vol A2C: 36.7 ml LA Vol BP: 48.3 ml LA Vol Index A4C: 30.9ml/m2 LA Vol Index A2C: 19.2 ml/m2 LA Vol Index BP: 25.3 ml/m2 LA Area A4C: 20.3 cm2 LA Area A2C: 15.4 cm2 LA [place] A4C: 5.9 cm LA [place] A2C: 5.5 cm LA Volume Index: 30.6 ml/m2 LA Vol A4C: 58.4 ml LA Vol A2C: 37.4 ml LA Vol Index BSA: 25.0 ml/m2 LV SYSTOLIC FUNCTION BY 2D PLANIMETRY (MOD): Normal Ranges: EF-A4C View: 69 % (>=55%) EF-A2C View: 66 % EF-Biplane: 68 % LV EF Reported: 68 % LV DIASTOLIC FUNCTION: Normal Ranges: MV Peak E: 1.30 m/s (0.7-1.2 m/s) MV Peak A: 1.08 m/s (0.42-0.7 m/s) E/A Ratio: 1.20 (1.0-2.2) MITRAL VALVE: Normal Ranges: MV DT: 306 msec (150-240msec) AORTIC VALVE: Normal Ranges: AoV Vmax: 2.35 m/s (<=1.7m/s) AoV Peak P (more content not included)... Ladarius Figueroa MD - 03/16/2024 [place] [address] ext-[phone], TRANSTHORACIC ECHOCARDIOGRAM REPORT Patient Name: ALLI Noel Physician: [id number] Ladarius Mills MD Study Date: 03/16/2024 Ordering Provider: [id number] TOBY HUDSON MRN/PID: [id number] Fellow: Nurse: Pearl Kuo RN Date of /Age: 1 1950 / 73 years Paper Cup Machine Operator: Michele Xie [facility] Gender: M Additional Staff: Height: 167.64 cm Admit Date: Weight: 81.65 kg Admission Status: Outpatient BSA / BMI: 1.91 m2 / 29.05 Department Location: [facility] Echo Lab kg/m2 Blood Pressure: 147 /60 mmHg Study Type: TRANSTHORACIC ECHO (TTE) COMPLETE Diagnosis/ICD: Bradycardia, unspecified-R00.1 CPT Codes: Echo Complete w Full Doppler-07024 Study Detail: The following Echo studies were performed: 2D, M-Mode, Doppler and color flow. Definity used as a contrast agent for endocardial border definition and agitated saline used as a contrast agent for intraseptal flow evaluation. Total contrast used for this procedure was 1.50cc mL via IV push. PHYSICIAN INTERPRETATION: Left Ventricle: The left ventricular systolic function is normal, with a Jerez's biplane calculated ejection fraction of 68%. There are no regional wall motion abnormalities. The left ventricular cavity size is normal. There is moderate concentric left ventricular hypertrophy. Left ventricular diastolic filling was indeterminate. Left Atrium: The left atrium is mildly dilated. A bubble study using agitated saline was performed. Bubble study is negative. Right Ventricle: The right ventricle is normal in size. There is normal right ventricular global systolic function. Right Atrium: The right atrium is normal in size. Aortic Valve: The aortic valve is probably trileaflet. There is evidence of mild aortic valve stenosis. The aortic valve dimensionless index is 0.47. There is trace aortic valve regurgitation. The peak instantaneous gradient of the aortic valve is 22.1 mmHg. The mean gradient of the aortic valve is 14.0 mmHg. Mitral Valve: The mitral valve is abnormal. There is no evidence of mitral valve regurgitation. Calcified mitral annulus and leaflets. Tricuspid Valve: The tricuspid valve is structurally normal. No evidence of tricuspid regurgitation. Pulmonic Valve: The pulmonic valve is not well visualized. There is trace pulmonic valve regurgitation. Pericardium: There is no pericardial effusion noted. Aorta: The aortic root is normal. Systemic Veins: The inferior vena cava appears dilated, less than 50% IVC collapse with inspiration. CONCLUSIONS: 1. The left ventricular systolic function is normal, with a Jerez's biplane calculated ejection fraction of 68%. 2. Left ventricular diastolic filling was indeterminate. 3. There is moderate concentric left ventricular hypertrophy. 4. There is normal right ventricular global systolic function. 5. Mild aortic valve stenosis. 6. Patient is bradycardic at the time of the echocardiogram. 7. No major changes compared to prior echocardiogram 12/22/2019. QUANTITATIVE DATA SUMMARY: 2D MEASUREMENTS: Normal Ranges: Ao Root d: 3.40 cm (2.0-3.7cm) LAs: 4.10 cm (2.7-4.0cm) IVSd: 1.58 cm (0.6-1.1cm) LVPWd: 1.78 cm (0.6-1.1cm) LVIDd: 3.65 cm (3.9-5.9cm) LVIDs: 2.42 cm LV Mass Index: 129.0 g/m2 LV % FS 33.7 % LA VOLUME: Normal Ranges: LA Vol A4C: 59.2 ml (22+/-6mL/m2) LA Vol A2C: 36.7 ml LA Vol BP: 48.3 ml LA Vol Index A4C: 30.9ml/m2 LA Vol Index A2C: 19.2 ml/m2 LA Vol Index BP: 25.3 ml/m2 LA Area A4C: 20.3 cm2 LA Area A2C: 15.4 cm2 LA [place] A4C: 5.9 cm LA Major [place] A2C: 5.5 cm LA Volume Index: 30.6 ml/m2 LA Vol A4C: 58.4 ml LA Vol A2C: 37.4 ml LA Vol Index BSA: 25.0 ml/m2 LV SYSTOLIC FUNCTION BY 2D PLANIMETRY (MOD): Normal Ranges: EF-A4C View: 69 % (>=55%) EF-A2C View: 66 % EF-Biplane: 68 % LV EF Reported: 68 % LV DIASTOLIC FUNCTION: Normal Ranges: MV Peak E: 1.30 m/s (0.7-1.2 m/s) MV Peak A: 1.08 m/s (0.42-0.7 m/s) E/A Ratio: 1.20 (1.0-2.2) MITRAL VALVE: Normal Ranges: MV DT: 306 msec (150-240msec) AORTIC VALVE: Normal Ranges: AoV Vmax: 2.35 m/s (<=1.7m/s) AoV Peak P.1 mmHg (<20mmHg) AoV Mean P.0 mmHg (1.7-11.5mmHg) LVOT Max Kirsty: 1.15 m/s (<=1.1m/s) AoV VTI: 70.90 cm (18-25cm) LVOT VTI: 33.20 cm LVOT Diameter: 2.00 cm (1.8-2.4cm) AoV Area, VTI: 1.47 cm2 (2.5-5.5cm2) AoV Area,Vmax: 1.54 cm2 (2.5-4.5cm2) AoV Dimensionless Index: 0.47 AORTIC INSUFFICIENCY: AI Vmax: 4.09 m/s AI Half-time: 932 msec AI Decel Rate: 129.00 cm/s2 RIGHT VENTRICLE: RV Basal 4.60 cm RV Mid 2.99 cm RV Major 8.5 cm TAPSE: 26.3 mm [id number] Ladarius Mills MD Electronically signed on 03/16/2024 at 3:57:57 PM Final [facility] Work Phone: ECG 12 lead (Clinic Performe d)on 03-15-2024 Sinus bradycardia ventricular rate 38 QRS 124 QT 468 QTc 372 *Please refer to scanned ECG for final report* [facility] Work Phone: CARDIOLOGY INTERPRETATION OF NUCLEAR STRESSon 03-08-2024 CARDIOLOGY INTERPRETATION [place] [address] ext-[phone], Nuclear Pharmacologic Stress Test Patient Name: ALLI THOMPSON Ordering Provider: [id number] TOBY HUDSON Study Date: 03/08/2024 Reading Physician: [id number] Hudson MD MRN/PID: [id number] Supervising Physician: [id number] Hudson MD Fellow: Date of /Age: 1 1950 / 73 years Fellow: Gender: M Nurse: N/A Admit Date: 03/08/2024 Residential Appliance Repair Technician: Maya Allen REPAIRER HELPER, CVT Admission Status: Outpatient Paper Cup Machine Operator: N/A Height: 167.64 cm Technologist: Weight: 81.65 kg Additional Staff: BSA: 1.91 m2 BMI: 29.05 kg/m2 Patient Location: [facility] Stress Lab Study Type: CARDIOLOGY INTERPRETATION OF NUCLEAR STRESS Diagnosis/ICD: Atherosclerotic heart disease-I25.10; Bradycardia, unspecified-R00.1 Indication: Atherosclerotic heart disease, and Bradycardia CPT Codes: Stress Test Supervision-91922; Stress Test Interpretation-[id number] Falls Risk: Low: Patient has low risk for sustaining a fall; environmental safety interventions in place. Study Details: Correct procedure and correct patient verified verbally and with ID Band checked. Patient History: Hypertension, hyperlipidemia, cerebrovascular accident and family history of coronary artery disease. Allergies: None. Smoker: Never. Diabetes: No. BMI: Overweight 25 - 30. Medications: Aspirin, triamterene and HCTZ, lisinopril, atorvastatin and amlodipine. The patient did not take medications as prescribed. Patient Performance: Patient received a total of 0.4 mg of Regadenoson at 8:26:08 AM. Patient received a total of 35 mCi of Myoview at 8:26:44 AM. The peak heart rate achieved was 81 bpm, which was 56 % of the age predicted target heart rate of 145 bpm. The resting blood pressure was 122/72 mmHg with a heart rate of 46 bpm. The patient developed no symptoms during the stress exam. The blood pressure response was normal. The test was terminated due to: completed lab protocol. Baseline ECG: Resting ECG showed sinus bradycardia with first degree AV block. Stress ECG: Stress ECG showed sinus bradycardia, with a first degree AV block and Intraventricular Conduction Delay. Stress Stage Data: + +--+---- --+-------+ HR Sys BP Barbour BP + +--+---- --+-------+ Baseline Resting 46 122 72 + +--+---- --+-------+ Stage 1/2 48 + +--+---- --+-------+ Stage I 60 130 77 + +--+---- --+-------+ Recovery ECG: The heart rate recovery was normal. + +--+------+-- -----+ HR Sys BP Barbour BP + +--+------+-- -----+ Recovery I 60 + +--+------+-- -----+ Recovery II 81 140 80 + +--+------+-- -----+ Recovery IV 64 138 70 + +--+------+-- -----+ Summary: 1. Baseline EKG showing bradycardic sinus rhythm with RBBB and 1sr degree AV block, with no resting ST-T segment changes. 2. With regadenoson infusion, there are no ST-T segment changes suggestive of ischemia. No sustained ventricular arrhythmias are seen. 3. Regadenoson stress EKG is negative for ischemia. 4. Nuclear image results are reported separately. [id number] Toby Hudson MD Electronically signed on 03/08/2024 at 12:36:31 PM Final Normal [facility] NM Heart Perfusion W stress and W radionuclide [place] 03-08-2024 New small sized perf usion defect within the distal portions of the inferior wall on stress imaging that improves with rest. These findings are compatible with moderate severity inducible myocardial ischemia. Otherwise, no evidence of inducible myocardial ischemia or prior infarct. The left ventricle is mildly enlarged in size. Normal LV wall motion with an LV EF estimated at greater than 65%. I personally reviewed the images/study and I agree with the findings as stated. This study was interpreted at [facility], [place], [place]. MACRO: Critical Finding: See findings. Notification was initiated on 03/08/2024 at 10:17 am by James Martin. (-YCF-) Instructions: Signed by: Anai Cano 03/08/2024 10:43 AM Dictation workstation: [id number] Interpreted By: Anai Arias and Nakamoto Kent STUDY: NUCLEAR STRESS TEST; 03/08/2024 9:34 am INDICATION: Signs/Symptoms:bradycardi a. ,R00.1 Bradycardia, unspecified,I25.10 Atherosclerotic heart disease of [place] coronary artery without angina pectoris COMPARISON: Nuclear stress test 06/17/2017. ACCESSION NUMBER(S): [id number] ORDERING CLINICIAN: TOBY HUDSON TECHNIQUE: DIVISION OF NUCLEAR MEDICINE PHARMACOLOGIC STRESS MYOCARDIAL PERFUSION SCAN, ONE DAY PROTOCOL The patient received an intravenous injection of 11.4 mCi of Tc-99m Myoview and resting emission tomographic (SPECT) images of the myocardium were acquired. The patient then received an intravenous infusion of 0.4 mg regadenoson (Lexiscan) followed by an additional injection of 35 mCi of Tc-99m Myoview. Stress phase SPECT images of the myocardium were then acquired. These included ECG-gated post-stress and rest images to assess and quantify ventricular function. Low dose CT was acquired for attenuation correction. FINDINGS: There is a new small sized perfusion defect with moderate severity within the distal portions of the inferior wall on stress imaging that improves with rest. This finding is new compared to prior exam dated 06/17/2017. Otherwise, both stress and rest studies demonstrate grossly normal perfusion throughout the left ventricle. The left ventricle is mildly enlarged in size with end-diastolic volume of 138 mL. The end-diastolic volume is slightly increased compared to prior exam of 129 mL on 06/17/2017. EKG-gated images demonstrate normal LV wall motion with a post-stress LV EF estimated at greater than 65%. Attenuation correction CT images demonstrate no gross anatomic abnormalities. [facility] Anai Cano MD - 03/08/2024 Interpreted By: Anai Cano and Nakamoto Kent STUDY: NUCLEAR STRESS TEST; 03/08/2024 9:34 am INDICATION: Signs/Symptoms:bradycardi a. ,R00.1 Bradycardia, unspecified,I25.10 Atherosclerotic heart disease of [place] coronary artery without angina pectoris COMPARISON: Nuclear stress test 06/17/2017. ACCESSION NUMBER(S): [id number] ORDERING CLINICIAN: TOBY HUDSON TECHNIQUE: DIVISION OF NUCLEAR MEDICINE PHARMACOLOGIC STRESS MYOCARDIAL PERFUSION SCAN, ONE DAY PROTOCOL The patient received an intravenous injection of 11.4 mCi of Tc-99m Myoview and resting emission tomographic (SPECT) images of the myocardium were acquired. The patient then received an intravenous infusion of 0.4 mg regadenoson (Lexiscan) followed by an additional injection of 35 mCi of Tc-99m Myoview. Stress phase SPECT images of the myocardium were then acquired. These included ECG-gated post-stress and rest images to assess and quantify ventricular function. Low dose CT was acquired for attenuation correction. FINDINGS: There is a new small sized perfusion defect with moderate severity within the distal portions of the inferior wall on stress imaging that improves with rest. This finding is new compared to prior exam dated 06/17/2017. Otherwise, both stress and rest studies demonstrate grossly normal perfusion throughout the left ventricle. The left ventricle is mildly enlarged in size with end-diastolic volume of 138 mL. The end-diastolic volume is slightly increased compared to prior exam of 129 mL on 06/17/2017. EKG-gated images demonstrate normal LV wall motion with a post-stress LV EF estimated at greater than 65%. Attenuation correction CT images demonstrate no gross anatomic abnormalities. IMPRESSION: New small sized perfusion defect within the distal portions of the inferior wall on stress imaging that improves with rest. These findings are compatible with moderate severity inducible myocardial ischemia. Otherwise, no evidence of inducible myocardial ischemia or prior infarct. The left ventricle is mildly enlarged in size. Normal LV wall motion with an LV EF estimated at greater than 65%. I personally reviewed the images/study and I agree with the findings as stated. This study was interpreted at [facility], [place], [place]. MACRO: Critical Finding: See findings. Notification was initiated on 03/08/2024 at 10:17 am by James Martin. (-YCF-) Instructions: Signed by: Anai Cano 03/08/2024 10:43 AM Dictation workstation: [id number] [facility] Work Phone: Radiology Study observation (narrative) [facility] Work Phone: NM Heart Perfusion W stress and W radionuclide IVOrdered By: Anai Cano on 03-08-2024 [facility] Work Phone: NUCLEAR STRESS TESTon 2023 NUCLEAR STRESS TEST Interpreted By: Anai Arias and Nakamoto Kent STUDY: NUCLEAR STRESS TEST; 03/08/2024 9:34 am INDICATION: Signs/Symptoms:bradycardi a. ,R00.1 Bradycardia, unspecified,I25.10 Atherosclerotic heart disease of [place] coronary artery without angina pectoris COMPARISON: Nuclear stress test 06/17/2017. ACCESSION NUMBER(S): [id number] ORDERING CLINICIAN: TOBY HUDSON TECHNIQUE: DIVISION OF NUCLEAR MEDICINE PHARMACOLOGIC STRESS MYOCARDIAL PERFUSION SCAN, ONE DAY PROTOCOL The patient received an intravenous injection of 11.4 mCi of Tc-99m Myoview and resting emission tomographic (SPECT) images of the myocardium were acquired. The patient then received an intravenous infusion of 0.4 mg regadenoson (Lexiscan) followed by an additional injection of 35 mCi of Tc-99m Myoview. Stress phase SPECT images of the myocardium were then acquired. These included ECG-gated post-stress and rest images to assess and quantify ventricular function. Low dose CT was acquired for attenuation correction. FINDINGS: There is a new small sized perfusion defect with moderate severity within the distal portions of the inferior wall on stress imaging that improves with rest. This finding is new compared to prior exam dated 06/17/2017. Otherwise, both stress and rest studies demonstrate grossly normal perfusion throughout the left ventricle. The left ventricle is mildly enlarged in size with end-diastolic volume of 138 mL. The end-diastolic volume is slightly increased compared to prior exam of 129 mL on 06/17/2017. EKG-gated images demonstrate normal LV wall motion with a post-stress LV EF estimated at greater than 65%. Attenuation correction CT images demonstrate no gross anatomic abnormalities. IMPRESSION: New small sized perfusion defect within the distal portions of the inferior wall on stress imaging that improves with rest. These findings are compatible with moderate severity inducible myocardial ischemia. Otherwise, no evidence of inducible myocardial ischemia or prior infarct. The left ventricle is mildly enlarged in size. Normal LV wall motion with an LV EF estimated at greater than 65%. I personally reviewed the images/study and I agree with the findings as stated. This study was interpreted at [facility], [place], [place]. MACRO: Critical Finding: See findings. Notification was initiated on 03/08/2024 at 10:17 am by James Martin. (-YCF-) Instructions: Signed by: Anai Cano 03/08/2024 10:43 AM Dictation workstation: [id number] [facility] No Panel Informationon 03-08 [place] [id number], Nuclear Pharmacologic Stress Test Patient Name: ALLI THOMPSON Ordering Provider: [id number] HUDSON Study Date: 03/08/2024 Reading Physician: Jose Hudson MD MRN/PID: [id number] Supervising Physician: Jose Hudson MD Fellow: Date of /Age: 1 1950 / 73 years Fellow: Gender: M Nurse: N/A Admit Date: 03/08/2024 Residential Appliance Repair Technician: Maya Allen REPAIRER HELPER, CVT Admission Status: Outpatient Paper Cup Machine Operator: N/A Height: 167.64 cm Technologist: Weight: 81.65 kg Additional Staff: BSA: 1.91 m2 BMI: 29.05 kg/m2 Patient Location: [facility] Stress Lab Study Type: CARDIOLOGY INTERPRETATION OF NUCLEAR STRESS Diagnosis/ICD: Atherosclerotic heart disease-I25.10; Bradycardia, unspecified-R00.1 Indication: Atherosclerotic heart disease, and Bradycardia CPT Codes: Stress Test Supervision-12494; Stress Test Interpretation-60522 Falls Risk: Low: Patient has low risk for sustaining a fall; environmental safety interventions in place. Study Details: Correct procedure and correct patient verified verbally and with ID Band checked. Patient History: Hypertension, hyperlipidemia, cerebrovascular accident and family history of coronary artery disease. Allergies: None. Smoker: Never. Diabetes: No. BMI: Overweight 25 - 30. Medications: Aspirin, triamterene and HCTZ, lisinopril, atorvastatin and amlodipine. The patient did not take medications as prescribed. Patient Performance: Patient received a total of 0.4 mg of Regadenoson at 8:26:08 AM. Patient received a total of 35 mCi of Myoview at 8:26:44 AM. The peak heart rate achieved was 81 bpm, which was 56 % of the age predicted target heart rate of 145 bpm. The resting blood pressure was 122/72 mmHg with a heart rate of 46 bpm. The patient developed no symptoms during the stress exam. The blood pressure response was normal. The test was terminated due to: completed lab protocol. Baseline ECG: Resting ECG showed sinus bradycardia with first degree AV block. Stress ECG: Stress ECG showed sinus bradycardia, with a first degree AV block and Intraventricular Conduction Delay. Stress Stage Data: + +--+---- --+-------+ HR Sys BP Barbour BP + +--+---- --+-------+ Baseline Resting 46 122 72 + +--+---- --+-------+ Stage 1/2 48 + +--+---- --+-------+ Stage I 60 130 77 + +--+---- --+-------+ Recovery ECG: The heart rate recovery was normal. + +--+------+-- -----+ HR Sys BP Barbour BP + +--+------+-- -----+ Recovery I 60 + +--+------+-- -----+ Recovery II 81 140 80 + +--+------+-- -----+ Recovery IV 64 138 70 + +--+------+-- -----+ Summary: 1. Baseline EKG showing bradycardic sinus rhythm with RBBB and 1sr degree AV block, with no resting ST-T segment changes. 2. With regadenoson infusion, there are no ST-T segment changes suggestive of ischemia. No sustained ventricular arrhythmias are seen. 3. Regadenoson stress EKG is negative for ischemia. 4. Nuclear image results are reported separately. [id number] Hudson MD Electronically signed on 03/08/2024 at 12:36:31 PM Final Toby Hunt MD - 03/08/2024 [place] [address] ext-[phone], Nuclear Pharmacologic Stress Test Patient Name: ALLI THOMPSON Ordering Provider: [id number] HUDSON Study Date: 03/08/2024 Reading Physician: Jose Hudson MD MRN/PID: [id number] Supervising Physician: Jose Hudson MD Fellow: Date of /Age: 1 1950 / 73 years Fellow: Gender: M Nurse: N/A Admit Date: 03/08/2024 Residential Appliance Repair Technician: Maay Allen REPAIRER HELPER, CVT Admission Status: Outpatient Paper Cup Machine Operator: N/A Height: 167.64 cm Technologist: Weight: 81.65 kg Additional Staff: BSA: 1.91 m2 BMI: 29.05 kg/m2 Patient Location: [facility] Stress Lab Study Type: CARDIOLOGY INTERPRETATION OF NUCLEAR STRESS Diagnosis/ICD: Atherosclerotic heart disease-I25.10; Bradycardia, unspecified-R00.1 Indication: Atherosclerotic heart disease, and Bradycardia CPT Codes: Stress Test Supervision-12730; Stress Test Interpretation-08903 Falls Risk: Low: Patient has low risk for sustaining a fall; environmental safety interventions in place. Study Details: Correct procedure and correct patient verified verbally and with ID Band checked. Patient History: Hypertension, hyperlipidemia, cerebrovascular accident and family history of coronary artery disease. Allergies: None. Smoker: Never. Diabetes: No. BMI: Overweight 25 - 30. Medications: Aspirin, triamterene and HCTZ, lisinopril, atorvastatin and amlodipine. The patient did not take medications as prescribed. Patient Performance: Patient received a total of 0.4 mg of Regadenoson at 8:26:08 AM. Patient received a total of 35 mCi of Myoview at 8:26:44 AM. The peak heart rate achieved was 81 bpm, which was 56 % of the age predicted target heart rate of 145 bpm. The resting blood pressure was 122/72 mmHg with a heart rate of 46 bpm. The patient developed no symptoms during the stress exam. The blood pressure response was normal. The test was terminated due to: completed lab protocol. Baseline ECG: Resting ECG showed sinus bradycardia with first degree AV block. Stress ECG: Stress ECG showed sinus bradycardia, with a first degree AV block and Intraventricular Conduction Delay. Stress Stage Data: + +--+---- --+-------+ HR Sys BP Barbour BP + +--+---- --+-------+ Baseline Resting 46 122 72 + +--+---- --+-------+ Stage 1/2 48 + +--+---- --+-------+ Stage I 60 130 77 + +--+---- --+-------+ Recovery ECG: The heart rate recovery was normal. + +--+------+-- -----+ HR Sys BP Barbour BP + +--+------+-- -----+ Recovery I 60 + +--+------+-- -----+ Recovery II 81 140 80 + +--+------+-- -----+ Recovery IV 64 138 70 + +--+------+-- -----+ Summary: 1. Baseline EKG showing bradycardic sinus rhythm with RBBB and 1sr degree AV block, with no resting ST-T segment changes. 2. With regadenoson infusion, there are no ST-T segment changes suggestive of ischemia. No sustained ventricular arrhythmias are seen. 3. Regadenoson stress EKG is negative for ischemia. 4. Nuclear image results are reported separately. [id number] Toby Hudson MD Electronically signed on 03/08/2024 at 12:36:31 PM Final [facility] Work Phone: [facility] Work Phone: ECG 12 lead (Clinic Performe d)on 02-26-2024 EKG shows sinus bradycardic rhythm with no signs of acute ischemic changes. [facility] Work Phone: Basic metabolic 2000 panelon 02-10-2024 Anion gap [Moles/Vol] 9 mmol/L Low 10-20 [facility] Comment on above: Performed By: #### 2 4321-2 #### OLIVIA JOHNSON ([id number]) [facility] ([facility]) [facility] [place] [address] Calcium [Mass/Vol] 9.6 mg/dL Normal 8.6-10.3 [facility] Comment on above: Performed By: #### 2 4321-2 #### OLIVIA JOHNSON ([id number]) [facility] ([facility]) [address] [place] [address]876 Chloride [Moles/Vol] 102 mmol/L Normal 98-107 [facility] Comment on above: Performed By: #### 2 4321-2 #### OLIVIA JOHNSON ([id number]) [facility] ([facility]) [address] [place] [address] 75661 CO2 [Moles/Vol] 28 mmol/L Normal 21-32 [facility] Comment on above: Performed By: #### 2 4321-2 #### OLIVIA JOHNSON ([id number]) [facility] ([facility]) [address] [place] [address]507 Creatinine [Mass/Vol] 0.76 mg/dL Normal 0.50-1.30 [facility] Comment on above: Performed By: #### 2 4321-2 #### OLIVIA JOHNSON ([id number]) [facility] ([facility]) [address] [place] [address]47 GFR/1.73 sq M.predicted MDRD (S/P/Bld) [Vol rate/Area] mL/min/{1.73_m2} Normal >60 [facility] Comment on above: Result Comment: Calc ulations of estimated GFR are performed using the 2020 CKD-EPI Study Refit equation without the race variable for the IDMS-Traceable creatinine methods. https://jasn.asnjournals.org/content//ASN.881908 9186 Performed By: #### 2 4321-2 #### OLIVIA JOHNSON ([id number]) [facility] ([facility]) [facility] [place] [address] Glucose [Mass/Vol] 89 mg/dL Normal 74-99 [facility] Comment on above: Performed By: #### 2 4321-2 #### OLIVIA JOHNSON ([id number]) [facility] ([facility]) [address] [place] [address]2407 Potassium [Moles/Vol] 4.0 mmol/L Normal 3.5-5.3 [facility] Comment on above: Performed By: #### 2 4321-2 #### OLIVIA JOHNSON ([id number]) [facility] ([facility]) [address] [place] [address]117 Sodium [Moles/Vol] 135 mmol/L Low 136-145 [facility] Comment on above: Performed By: #### 2 4321-2 #### OLIVIA JOHNSON ([id number]) [facility] ([facility]) [address] [place] [address]90 Urea nitrogen [Mass/Vol] 17 mg/dL Normal 6-23 [facility] Comment on above: Performed By: #### 2 4321-2 #### OLIVIA JOHNSON ([id number]) [facility] ([facility]) [address] [place] [address]60[address] NM BONE WHOLE BODYon 024 NM BONE WHOLE BODY Interpreted By: Beny Eubanks and Liu Scott STUDY: NM BONE WHOLE BODY; 01/26/2024 1:48 pm INDICATION: Signs/Symptoms:prostate cancer. COMPARISON: MR prostate 12/03/2023 CT angio chest 10/14/2023 CT cervical spine 10/14/2023 MRI lumbar spine 01/13/2019 ACCESSION NUMBER(S): [id number] ORDERING CLINICIAN: ALLI ORONA TECHNIQUE: DIVISION OF NUCLEAR MEDICINE BONE SCAN, WHOLE BODY plus REGIONAL VIEWS The patient received an intravenous dose of 27 mCi of Tc-99m MDP. Anterior and posterior images of the skeleton from skull vertex to feet were then acquired. Additional regional skeletal images were also obtained. FINDINGS: No suspicious foci of increased radiotracer uptake to suggest osseous metastatic disease. Increased radiotracer uptake in the cervical spine corresponding to degenerative changes and prior C4-C5 fusion noted on prior CT cervical spine. Increased radiotracer uptake T4 through T10 corresponding to degenerative changes seen on prior CTA. Increased radiotracer uptake at L2 through L5 in keeping with history of L2-L5 bilateral screw/stewart fusion. Photopenic defects seen in bilateral hips in keeping with history of bilateral hip prostheses. Expected, excreted activity is noted in the kidneys and bladder. Increased radiotracer uptake is seen in the shoulders, hips, knees, feet, most consistent with an arthritic pattern. IMPRESSION: 1. No scintigraphic evidence of osseous metastatic disease. 2. Increased radiotracer uptake in the axial skeleton corresponding to degenerative and postsurgical changes. I personally reviewed the images/study and I agree with the findings as stated by resident physician Jhony Lira MD. This study was interpreted at [place], [place]. MACRO: None Signed by: Beny Eubanks 01/26/2024 3:34 PM Dictation workstation: [id number] [facility] NM Whole body Bone Viewson 0 01-26-2024 1. No scintigraphic evidence of osseous metastatic disease. 2. Increased radiotracer uptake in the axial skeleton corresponding to degenerative and postsurgical changes. I personally reviewed the images/study and I agree with the findings as stated by resident physician Jhony Lira MD. This study was interpreted at [place], [place]. MACRO: None Signed by: Beny Eubanks 01/26/2024 3:34 PM Dictation workstation: [id number] MM[facility]AL Interpreted By: Beny Eubanks and Liu Scott STUDY: NM BONE WHOLE BODY; 01/26/2024 1:48 pm INDICATION: Signs/Symptoms:prostate cancer. COMPARISON: MR prostate 12/03/2023 CT angio chest 10/14/2023 CT cervical spine 10/14/2023 MRI lumbar spine 01/13/2019 ACCESSION NUMBER(S): [id number] ORDERING CLINICIAN: ALLI ORONA TECHNIQUE: DIVISION OF NUCLEAR MEDICINE BONE SCAN, WHOLE BODY plus REGIONAL VIEWS The patient received an intravenous dose of 27 mCi of Tc-99m MDP. Anterior and posterior images of the skeleton from skull vertex to feet were then acquired. Additional regional skeletal images were also obtained. FINDINGS: No suspicious foci of increased radiotracer uptake to suggest osseous metastatic disease. Increased radiotracer uptake in the cervical spine corresponding to degenerative changes and prior C4-C5 fusion noted on prior CT cervical spine. Increased radiotracer uptake T4 through T10 corresponding to degenerative changes seen on prior CTA. Increased radiotracer uptake at L2 through L5 in keeping with history of L2-L5 bilateral screw/stewart fusion. Photopenic defects seen in bilateral hips in keeping with history of bilateral hip prostheses. Expected, excreted activity is noted in the kidneys and bladder. Increased radiotracer uptake is seen in the shoulders, hips, knees, feet, most consistent with an arthritic pattern. [facility] Beny Eubanks MD - 01/26/2024 Interpreted By: Beny Eubanks and Liu Scott STUDY: NM BONE WHOLE BODY; 01/26/2024 1:48 pm INDICATION: Signs/Symptoms:prostate cancer. COMPARISON: MR prostate 12/03/2023 CT angio chest 10/14/2023 CT cervical spine 10/14/2023 MRI lumbar spine 01/13/2019 ACCESSION NUMBER(S): [id number] ORDERING CLINICIAN: ALLI ORONA TECHNIQUE: DIVISION OF NUCLEAR MEDICINE BONE SCAN, WHOLE BODY plus REGIONAL VIEWS The patient received an intravenous dose of 27 mCi of Tc-99m MDP. Anterior and posterior images of the skeleton from skull vertex to feet were then acquired. Additional regional skeletal images were also obtained. FINDINGS: No suspicious foci of increased radiotracer uptake to suggest osseous metastatic disease. Increased radiotracer uptake in the cervical spine corresponding to degenerative changes and prior C4-C5 fusion noted on prior CT cervical spine. Increased radiotracer uptake T4 through T10 corresponding to degenerative changes seen on prior CTA. Increased radiotracer uptake at L2 through L5 in keeping with history of L2-L5 bilateral screw/stewart fusion. Photopenic defects seen in bilateral hips in keeping with history of bilateral hip prostheses. Expected, excreted activity is noted in the kidneys and bladder. Increased radiotracer uptake is seen in the shoulders, hips, knees, feet, most consistent with an arthritic pattern. IMPRESSION: 1. No scintigraphic evidence of osseous metastatic disease. 2. Increased radiotracer uptake in the axial skeleton corresponding to degenerative and postsurgical changes. I personally reviewed the images/study and I agree with the findings as stated by resident physician Jhnoy Lira MD. This study was interpreted at [facility], [place], [place]. MACRO: None Signed by: Beny Eubanks 01/26/2024 3:34 PM Dictation workstation: [id number] [facility] Work Phone: Radiology Study observation (narrative) [facility] Work Phone: NM Whole body Bone ViewsOrde red By: Beny Eubanks on 01-26-2024 [facility] Work Phone: FUNDUS PHOTOS OU (BOTH EYES) on 01-01-2024 [facility] Radiology Study observation (narrative) [facility] VISUAL FIELD 24-2 OU (BOTH E YES)on 01-01-2024 [facility] Radiology Study observation (narrative) [facility] Surgical pathology studyon 0 12-29-2023 Surgical pathology study Pathology report.total SEE COMMENT Surgical Pathology Case: [id number] Authorizing Provider: Alli Orona MD Collected: 12/29/2023 0743 Ordering Location: [facility] Received: 12/29/2023 1201 Center OR Pathologist: Russell Joyce MD Specimens: A) - PROSTATE NEEDLE BIOPSY RIGHT B) - PROSTATE NEEDLE BIOPSY LEFT C) - PROSTATE BIOPSY TARGETED JERRI, AREA OF INTEREST#1 Path report.final diagnosis SEE COMMENT A. Prostate, right, biopsy: -- PROSTATIC ADENOCARCINOMA, ACINAR TYPE, ZORAN SCORE 4 + 4 = 8, GRADE GROUP 4, INVOLVING ONE OF MULTIPLE FRAGMENTS AND LESS THAN 5% OF THE TISSUE SUBMITTED. B. Prostate, left, biopsy: -- BENIGN PROSTATIC TISSUE. C. Prostate, area of interest #1, biopsy: -- PROSTATIC ADENOCARCINOMA, ACINAR TYPE, ZORAN SCORE 4 + 4 = 8, GRADE GROUP 4, INVOLVING THREE OF MULTIPLE FRAGMENTS AND APPROXIMATELY 10% OF THE TISSUE SUBMITTED. Note: PIN4 cocktail immunohistochemical stain (P63, 34BE12, AMACR) is performed, and supports the above diagnosis. The International Society of Urologic Pathologists has developed a prostate cancer grading system (the Grade Group System) which has been accepted by the World Health Organization. Shown below is a correlation between conventional [place] grading/scoring and the new Grade Group system: ? Grade Group 1 ([place] score ?6) ? Grade Group 2 ([place]an score 3+4=7) ? Grade Group 3 ([place]or[place] score 4+3=7) ? Grade Group 4 ([place] score 8) ? Grade Group 5 (Zoran scores 9-10) Laboratory comment By the signature on this report, the individual or group listed as making the Final Interpretation/Diagnosis certifies that they have reviewed this case. Path report.relevant Hx SEE COMMENT Pre-op diagnosis: Elevated PSA [R97.20] Path report.gross observation SEE COMMENT A: Received in formalin, labeled with the patient's name and hospital number and prostate needle biopsy right, are multiple cylindrical fragments of mehta soft tissue ranging from 0.3 cm to 1.5 cm in length by less than 0.1 cm in diameter. The specimen is submitted in toto in two cassettes. SMS B: Received in formalin, labeled with the patient's name and hospital number and prostate needle biopsy left, are multiple cylindrical fragments of mehta soft tissue ranging from 0.3 cm to 2.0 cm in length by less than 0.1 cm in diameter. The specimen is submitted in toto in 3 cassettes. SMS C: Received in formalin, labeled with the patient's name and hospital number and area of interest #1, are multiple cylindrical fragments of mehta soft tissue ranging from 0.4 cm to 1.7 cm in length by less than 0.1 cm in diameter. The specimen is submitted in toto in 3 cassettes. [facility] AP ASR DISCLAIMER One or more of the reagents used to perform assays on this specimen MAY have contained components considered to be analyte specific reagents (ASR's). ASR's have not been cleared or approved by the U.S. Food and Drug Administration. These assays were developed and their performance characteristics determined by the Department of Pathology at [facility]. The FDA does not require this test to go through premarket FDA review. This test is used for clinical purposes. It should not be regarded as investigational or for research. This laboratory is certified under the Clinical Laboratory Improvement Amendments (CLIA) as qualified to perform high complexity clinical laboratory testing. The assays were performed with appropriate positive and negative controls which stained appropriately. [facility] Comment on above: Order Comment: Pre-o p diagnosis: Elevated PSA [R97.20] Basic metabolic 2000 panelon 12-07-2023 Anion gap [Moles/Vol] 9 mmol/L Low 10-20 [facility] Comment on above: Performed By: #### 2 4321-2 #### OLIVIA JOHNSON ([id number]) [facility] ([facility]) [facility] [place] [address] Calcium [Mass/Vol] 9.3 mg/dL Normal 8.6-10.3 [facility] Comment on above: Performed By: #### 2 4321-2 #### OLIVIA JOHNSON ([id number]) [facility] ([facility]) [address] [place] [address] 16239 Chloride [Moles/Vol] 100 mmol/L Normal 98-107 [facility] Comment on above: Performed By: #### 2 4321-2 #### OLIVIA JOHNSON ([id number]) [facility] ([facility]) [address] [place] [address] 20614 CO2 [Moles/Vol] 28 mmol/L Normal 21-32 [facility] Comment on above: Performed By: #### 2 4321-2 #### OLIVIA JOHNSON ([id number]) [facility] ([facility]) [address] [place] [address] 10443 Creatinine [Mass/Vol] 0.72 mg/dL Normal 0.50-1.30 [facility] Comment on above: Performed By: #### 2 4321-2 #### OLIVIA JOHNSON ([id number]) [facility] ([facility]) [address] [place] [address] 61255 GFR/1.73 sq M.predicted MDRD (S/P/Bld) [Vol rate/Area] mL/min/{1.73_m2} Normal >60 [facility] Comment on above: Result Comment: Calc ulations of estimated GFR are performed using the 2020 CKD-EPI Study Refit equation without the race variable for the IDMS-Traceable creatinine methods. https://jasn.asnjournals.org/content//ASN.862734 8098 Performed By: #### 2 4321-2 #### OLIVIA JOHNSON ([id number]) [facility] ([facility]) [facility] [place] [address] Glucose [Mass/Vol] 103 mg/dL High 74-99 [facility] Comment on above: Performed By: #### 2 4321-2 #### OLIVIA JOHNSON ([id number]) [facility] ([facility]) [address] [place] [address] 42714 Potassium [Moles/Vol] 3.7 mmol/L Normal 3.5-5.3 [facility] Comment on above: Performed By: #### 2 4321-2 #### OLIVIA JOHNSON ([id number]) [facility] ([facility]) [address] [place] [address] 80710 Sodium [Moles/Vol] 133 mmol/L Low 136-145 [facility] Comment on above: Performed By: #### 2 4321-2 #### OLIVIA JOHNSON ([id number]) [facility] ([facility]) [address] [place] [address] 21469 Urea nitrogen [Mass/Vol] 10 mg/dL Normal 6-23 [facility] Comment on above: Performed By: #### 2 4321-2 #### OLIVIA JOHNSON ([id number]) [facility] ([facility]) [address] [place] [address] 54547 HbA1c (Bld) [Mass fraction]o n 12-07-2023 Average glucose Estimated from glycated hemoglobin (Bld) [Mass/Vol] 103 mg/dL Normal Not Established [facility] Comment on above: Order Comment: Diagn osis of Diabetes-Adults Non-Diabetic: < or = 5.6% Increased risk for developing diabetes: 5.7-6.4% Diagnostic of diabetes: > or = 6.5% Monitoring of Diabetes Age (y)....................... Therapeutic Goal (%) Adults: >18.........................<7.0 Pediatrics: 13-18...................<7.5 Pediatrics: 7-12....................<8.0 Pediatrics: 0-6..................... 7.5-8.5 [employer]. Diabetes Care 33(S1), Jul 2009 Performed By: #### 4 548-4 #### OLIVIA JOHNSON ([id number]) [facility] ([facility]) [address] [id number] Hemoglobin A1c/Hemoglobin.to rai 12-07-2023 HbA1c (Bld) [Mass fraction] 5.2 % Normal see below [facility] Comment on above: Order Comment: Diagn osis of Diabetes-Adults Non-Diabetic: < or = 5.6% Increased risk for developing diabetes: 5.7-6.4% Diagnostic of diabetes: > or = 6.5% Monitoring of Diabetes Age (y)....................... Therapeutic Goal (%) Adults: >18.........................<7.0 Pediatrics: 13-18...................<7.5 Pediatrics: 7-12....................<8.0 Pediatrics: 0-6..................... 7.5-8.5 [employer]. Diabetes Care 33(S1), Jul 2009 Performed By: #### 4 548-4 #### OLIVIA JOHNSON ([id number]) [facility] ([facility]) [facility] [place] [address] Lipid 1996 panelon 4 Cholesterol [Mass/Vol] 97 mg/dL Normal 0-199 [facility] Comment on above: Result Comment: Age Desirable Borderline High High 0-19 Y 0 - 169 170 - 199 >/= 200 20-24 Y 0 - 189 190 - 224 >/= 225 >24 Y 0 - 199 200 - 239 >/= 240 All ranges are based on fasting samples. Specific therapeutic targets will vary based on patient-specific cardiac risk. Pediatric guidelines reference:Pediatrics 2011, 128(S5).Adult guidelines reference: NCEP ATPIII Guidelines,EMRE 2001, 258:2486-97 Venipuncture immediately after or during the administration of Metamizole may lead to falsely low results. Testing should be performed immediately prior to Metamizole dosing. Performed By: #### 2 4331-1 #### OLIVIA JOHNSON ([id number]) [facility] ([facility]) [address] [place] [address] Cholesterol in HDL [Mass/Vol] 52.0 mg/dL Normal [facility] Comment on above: Result Comment: Age Very Low Low Normal High 0-19 Y < 35 < 40 40-45 ---- 20-24 Y ---- < 40 >45 ---- >24 Y ---- < 40 40-60 >60 Performed By: #### 2 4331-1 #### OLIVIA JOHNSON ([id number]) [facility] ([facility]) [facility] [place] [address] Cholesterol in LDL [Mass/Vol] 35 mg/dL Normal <=99 [facility] Comment on above: Result Comment: Near Borderline AGE Desirable Optimal High High Very High 0-19 Y 0 - 109 --- 110-129 >/= 130 ---- 20-24 Y 0 - 119 --- 120-159 >/= 160 ---- >24 Y 0 - 99 100-129 130-159 160-189 >/=190 Performed By: #### 2 4331-1 #### OLIVIA JOHNSON ([id number]) [facility] ([facility]) [facility] [place] [address] Cholesterol in VLDL [Mass/Vol] 10 mg/dL Normal 0-40 [facility] Comment on above: Performed By: #### 2 4331-1 #### OLIVIA JOHNSON ([id number]) [facility] ([facility]) [address] [place] [address] CHOLESTEROL/HDL RATIO 1.9 Normal [facility] Comment on above: Result Comment: Ref Values Desirable < 3.4 High Risk > 5.0 Performed By: #### 2 4331-1 #### OLIVIA JOHNSON ([id number]) [facility] ([facility]) [address] [place] [address] 90994 NON HDL CHOLESTEROL 45 mg/dL Normal 0-149 [facility] Comment on above: Result Comment: Age Desirable Borderline High High Very High 0-19 Y 0 - 119 120 - 144 >/= 145 >/= 160 20-24 Y 0 - 149 150 - 189 >/= 190 ---- >24 Y 30 mg/dL above LDL Cholesterol goal Performed By: #### 2 4331-1 #### OLIVIA JOHNSON ([id number]) [facility] ([facility]) [address] [place] [address] 07623 Triglyceride [Mass/Vol] 51 mg/dL Normal 0-149 [facility] Comment on above: Result Comment: Age Desirable Borderline High High Very High 0 D-90 D 19 - 174 ---- ---- ---- 91 D- 9 Y 0 - 74 75 - 99 >/= 100 ---- 10-19 Y 0 - 89 90 - 129 >/= 130 ---- 20-24 Y 0 - 114 115 - 149 >/= 150 ---- >24 Y 0 - 149 150 - 199 200- 499 >/= 500 Venipuncture immediately after or during the administration of Metamizole may lead to falsely low results. Testing should be performed immediately prior to Metamizole dosing. Performed By: #### 2 4331-1 #### OLIVIA JOHNSON ([id number]) [facility] ([facility]) [address] [place], [place] [id number] Prostate specific Agon 11-05 Prostate specific Ag [Mass/Vol] 11.06 ng/mL High <=4.00 [facility] Comment on above: Order Comment: The F DA requires that the method used for PSA assay be reported to the physician. Values obtained with different assay methods must not be used interchangeably. This test was performed at [facility] using the [employer] PSA assay is a two-site immunoenzymatic sandwich assay. The assay is approved for measurement of prostate-specific antigen (PSA)in serum and may be used in conjunction with a digital rectal examination in men 50 years and older as an aid in detection of prostate cancer. 5-Rceou-ejdpzfste inhibitors (e.g. Proscar, Finasteride, Avodart, Dutasteride and Tere) for the treatment of BPH have been shown to lower PSA levels by an average of 50% after 6 months of treatment. Performed By: #### 2 857-1 #### BAKER ALEX ([id number]) [facility] ([facility]) [facility] [place] [address] EGD Study observation Magan argueta 11-03-2023 Addendum by Casimiro Courtney DO on 11/03/2023 2:33 PM EDT Table formatting from the original result was not included. Impression Abnormal mucosa; performed cold forceps biopsies Performed forceps biopsies in the 2nd part of the duodenum to rule out celiac disease Findings Mild, localized abnormal mucosa with linear furrows in the upper third of the esophagus and middle third of the esophagus, consistent with eosinophilic esophagitis; no bleeding was identified; performed cold forceps biopsy; Regular Z-line 36 cm from the incisors; performed cold forceps biopsy Generalized ulcerated mucosa in the prepyloric region, consistent with gastritis; performed cold forceps biopsy; Performed forceps biopsies in the 2nd part of the duodenum to rule out celiac disease Recommendation Follow up with me in clinic Repeat EGD in 3 months Upper and mid esophagus displayed linear furrows consistent with possible eosinophilic esophagitis. Will begin Protonix 40 mg daily to be taken 1/2-hour before evening meal or largest meal of the day Indication Dysphagia, unspecified type Staff Staff Role No Staff Documented Medications ywtzvipg-dblouernje-urvbt antoni (Cetacaine) spray 2 spray midazolam PF (Versed) injection 3.5 mg fentaNYL PF (Sublimaze) injection 50 mcg (Totals for administrations occurring from 1407 to 1425 on 11/03/23) Preprocedure A history and physical has been performed, and patient medication allergies have been reviewed. The patient's tolerance of previous anesthesia has been reviewed. The risks and benefits of the procedure and the sedation options and risks were discussed with the patient and patient's partner. All questions were answered and informed consent obtained. Details of the Procedure The patient underwent moderate sedation, which was administered by the procedural nurse. The patient's blood pressure, ECG, ETCO2, heart rate, level of consciousness, oxygen and respirations were monitored throughout the procedure. The scope was introduced through the mouth and advanced to the second part of the duodenum. Retroflexion was performed in the cardia. Prior to the procedure, the patient's H. Pylori status was unknown. The patient experienced no blood loss. The procedure was not difficult. The patient tolerated the procedure well. There were no apparent adverse events. Events Procedure Events Event Event Time ENDO SCOPE IN TIME 11/03/2023 2:18 PM ENDO SCOPE OUT TIME 11/03/2023 2:23 PM Specimens ID Type Source Tests Collected by Time 1 : BX ANTRUM Tissue STOMACH ANTRUM BIOPSY SURGICAL PATHOLOGY EXAM Amita Birch MA 11/03/2023 1419 2 : BX DUODENUM Tissue DUODENUM SECOND PART BIOPSY SURGICAL PATHOLOGY EXAM Amita Birch MA 11/03/2023 1420 3 : BX DISTAL ESOPHAGUS Tissue ESOPHAGUS DISTAL BIOPSY SURGICAL PATHOLOGY EXAM Amita Birch MA 11/03/2023 1421 4 : BX MID ESOPHAGUS Tissue ESOPHAGUS MID BIOPSY SURGICAL PATHOLOGY EXAM Amita Birch MA 11/03/2023 1422 Procedure Location [place] [id number] Referring Provider Casimiro Courtney DO [address] [place] [address], [facility] [address] [place] [address] Procedure Provider Casimiro Courtney DO [facility] Work Phone: [place] [address] Work Phone: Radiology Study observation (narrative) [facility] Work Phone: ECG 12 LeadOrdered By: Hillary Ramos on 10-15-2023 Atrial Rate 56 BPM [facility] Work Phone: P [place] 63 degrees [facility] Work Phone: P Offset 106 ms [facility] Work Phone: P Onset 51 ms [facility] Work Phone: MN Interval 306 ms [facility] Work Phone: Q Onset 204 ms [facility] Work Phone: QRS Count 9 beats [facility] Work Phone: QRS Duration 128 ms [facility] Work Phone: QT Interval 414 ms [facility] Work Phone: QTC Calculation(Bazett) 399 ms [facility] Work Phone: QTC Fredericia 405 ms [facility] Work Phone: R [place] -84 degrees [facility] Work Phone: T [place] 85 degrees [facility] Work Phone: T Offset 411 ms [facility] Work Phone: Ventricular Rate 56 BPM [facility] Work Phone: [facility] Work Phone: ECG 12 Leadon 10-15-2023 Sinus bradycardia wi th 1st degree AV block Right bundle branch block Left anterior fascicular block Bifascicular block Possible Lateral infarct (cited on or before 29-OCT-2022) Abnormal ECG When compared with ECG of 29-OCT-2022 07:37, Questionable change in initial forces of Anterior leads See ED provider note for full interpretation and clinical correlation Confirmed by Anastasia Ramos ([id number]) on 10/15/2023 9:22:32 PM Anastasia Rosas PA-C - 10/15/2023 Sinus bradycardia with 1st degree AV block Right bundle branch block Left anterior fascicular block Bifascicular block Possible Lateral infarct (cited on or before 29-OCT-2022) Abnormal ECG When compared with ECG of 29-OCT-2022 07:37, Questionable change in initial forces of Anterior leads See ED provider note for full interpretation and clinical correlation Confirmed by Anastasia Ramos ([id number]) on 10/15/2023 9:22:32 PM [facility] Work Phone: Office Visit (Urology)on Follow-up visit Diagnoses/Problems Assessed Elevated PSA (790.93) (R97.20) Patient Discussion/Summary All available PSA values reviewed, Options discussed. Questions answered. Discussed Abnormal JOANNE Discused repeat MRI Past MRI reviewed DUE TO ABNORMAL JOANNE AND OBVIOUS NODULE ON RIGHT WILL PROCEED WITH OFFICE TRUS FOR DX Cipro Rx given Treatment options for LUTS reviewed Discussed timed voiding. Discussed fluid and caffeine intake Treatment options for ED reviewed. Lifestyle change to help prevent UTIs discussed. Encouraged fluid intake. F/U TRUS BX IN OFFICE Chief Complaint 4 mo w/ psa History of Present IllnessPatient has hx of elevated PSA.. Most recent PSA was 8.06 on 03/28 AND THIS WAS ON FINASTERIDE. . Prior PSA was 5.14 on 08/28.On Finasteride since 04/26. Prior PSA was 4.40 on 02/24. (He did stop finasteride on 10/25) . Prior PSA was 2.23 on 08/27. Prior PSA was 0.99 on 08/26. MRI bx on 11/25 was negative. . Hx of kidney stones. No recent sx. Denies flank pain. Denies N/V and F/C. Chronic BPH sx are mild and stable. SOme urgency and frequency. Denies dysuria. Denies hematuria. Nocturia 4-5x. He did recently start back on Finasteride. He was given Uroxatral last visit but D/C this due to not seeing improvement. ED is chronic. No medication for this. Review of Systems Constitutional: No fever, No chills. Eye: glasses Ear/Nose/Mouth/Throat: Negative. Respiratory: No shortness of breath, No cough. Cardiovascular: No chest pain, No peripheral edema. Gastrointestinal: No nausea, Genitourinary: Negative except as documented in history of present illness. Hematology/Lymphatics: Patient denies being on blood thinners.. Endocrine: Negative. Immunologic: Not immunocompromised. Musculoskeletal: Negative Integumentary: Negative. Neurologic: Alert and oriented X4. Psychiatric: Negative. Active Problems Problems Allergic dermatitis (692.9) (L23.9) Bilateral renal stones (592.0) (N20.0) BPH (benign prostatic hyperplasia) (600.00) (N40.0) Chronic lower back pain (724.2,338.29) (M54.50,G89.29) Chronic migraine with aura (346.00) (G43.109) Class 1 obesity with body mass index (BMI) of 34.0 to 34.9 in adult (278.00,V85.34) (E66.9,Z68.34) Cutaneous skin tags (701.9) (L91.8) CVA (cerebrovascular accident) (434.91) (I63.9) DDD (degenerative disc disease), lumbosacral (722.52) (M51.37) DM2 (diabetes mellitus, type 2) (250.00) (E11.9) Dysuria (788.1) (R30.0) EKG abnormalities (794.31) (R94.31) Elevated PSA (790.93) (R97.20) Encounter for immunization (V03.89) (Z23) Encounter for screening for other disorder (V82.89) (Z13.89) 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) HTN (hypertension), benign (401.1) (I10) Hypertriglyceridemia (272.1) (E78.1) Kidney stones (592.0) (N20.0) LBBB (left bundle branch block) (426.3) (I44.7) Lumbar spinal stenosis (724.02) (M48.061) Mild cardiomegaly (429.3) (I51.7) 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 Padilla History of Tonsillectomy Family History Mother Family history of chronic obstructive pulmonary disease (V17.6) (Z82.5) Father Family history of cardiac pacemaker (V17.49) (Z82.49) Family history of myocardial infarction (V17.3) (Z82.49) Social History Problems Never a smoker No recent foreign travel Patient has living will (V49.89) (Z78.9) Allergies Medication No Known Drug Allergies Recorded By: Peggy Shea; 06/15/2019 6:04:42 PM Current Meds Medication NameInstruction Accu-Chek FastClix Lancetscheck blood sugar every mourning. amLODIPine Besylate 5 MG Oral TabletTAKE 1 TABLET DAILY. Aspirin EC Low Dose 81 MG Oral Tablet Delayed ReleaseTake 1 tablet daily Atorvastatin Calcium 40 MG Oral TabletTAKE 1 TABLET Bedtime Finasteride 5 MG Oral TabletTake 1 tablet daily FreeStyle Lite Test In Vitro StripTEST BLOOD SUGAR DAILY - FIRST THING IN THE MORNING BEFORE BREAKFAST Lisinopril 40 MG Oral TabletTake 1 tablet daily metFORMIN HCl - 500 MG Oral TabletTake 1 tablet twice daily Sulfamethoxazole-Trimetho prim 800-160 MG Oral TabletTake 1 tablet daily Sulfamethoxazole-Trimetho prim 800-160 MG Oral TabletTake 1 tablet twice daily Triamterene-HCTZ 37.5-25 MG Oral TabletTAKE 1 TABLET DAILY. Vitamin B-12 1000 MCG Sublingual Tablet SublingualApply 1 tab beneath tongue once daily Vitals Vital Signs Recorded: 20Sep2 (more content not included)... Normal [facility] Prostate Specific Antigenon 03-10-2023 Prostate specific Ag [Mass/Vol] 8.06 ng/mL above high threshold See Below [employer] Work Phone: Comment on above: Reference Range: 0.0 0 - 4.00The FDA requires that the method used for PSA assay be reported to the physician. Values obtained with different assay methods must not be used interchangeably. This testwas performed at [facility] using the [employer] PSA assay is a two-site immunoenzymatic sandwich assay. The assay is approved for measurement of prostate-specific antigen (PSA)in serum and may be used in conjunction with a digital rectal examination in men 50 years and older as an aid in detection of prostate cancer.9-Lpvdj-ksyjmrend inhibitors (e.g. Proscar, Finasteride, Avodart, Dutasteride and Tere) for the treatment of BPH have been shown to lower PSA levels by an average of 50% after 6 months of treatment. ALBUMIN, URINE SPOTon 2022 ALBUMIN,URINE 25.8 mg/L Normal Not Established [facility] Comment on above: Performed By: #### A LBSP #### [facility] [address] [place] [address] ALBUMIN/CREAT RATIO 43.3 ug/mg peer health promoter High 0.0 - 30.0 S Located within [facility] Comment on above: Performed By: #### A LBSP #### [facility] [address] [place] [address] CREATININE,URINE 59.6 mg/dL Normal 20.0 - 370.0 [facility] Comment on above: Performed By: #### A LBSP #### [facility] [address] [place] [address] Lab Specimen Source Urine Normal [facility] Comment on above: Performed By: #### A LBSP #### [facility] [address] [place] [address] HEMOGLOBIN A1Con 12-04-2022 Glucose [Mass/Vol] 114 mg/dL Normal [facility] Comment on above: Performed By: #### H BA1E #### [facility] [address] [place] [address] HbA1c (Bld) [Mass fraction] 5.6 % Normal [facility] Comment on above: Result Comment: Diag nosis of Diabetes-Adults Non-Diabetic: < or = 5.6% Increased risk for developing diabetes: 5.7-6.4% Diagnostic of diabetes: > or = 6.5% . Monitoring of Diabetes Age (y) Therapeutic Goal (%) Adults: >18 <7.0 Pediatrics: 13-18 <7.5 7-12 <8.0 0- 6 7.5-8.5 [place]. Diabetes Care 33(S1), Jul 2009. Performed By: #### H BA1E #### [address] [address] Lab Specimen Source Normal [facility] Comment on above: Performed By: #### H BA1E #### [address] [address] Performed By: #### V TB12 ####[address] [address] Post Op (General Surgery)on 12-04-2022 Post Op (General Surgery) Diagnoses/Problems History of left inguinal hernia (V12.79) (Z87.19) Provider Impressions Mr. Thompson is a 72yo male s/p open left inguinal hernia repair on 11/05/22. He is doing well without any signs or symptoms of postoperative complication or hernia recurrence. I suspect that the irritation at his umbilicus is secondary to the chlorhexidine prep, and he can continue to keep this clean and dry. The induration at the incision site will likely soften over time, although this may take several weeks given that this is in a gravity dependent portion of his loose skin following his significant weight loss. He may resume all regular activity. He will follow-up as needed. Chief Complaint s/p left inguinal hernia repair History of Present IllnessMr. Thompson is a 72-year-old male seen in postoperative follow-up from an open repair of a left inguinal hernia on 11/05/22. Overall, he is very satisfied with his result. He was having intermittent partial obstructive symptoms prior to surgery, and that has all resolved. He reports that his chronic abdominal pains have now resolved. His only complaint is that he had a little bit of drainage/irritation at his umbilicus, and I suspect that this was secondary to the chlorhexidine prep. He is afebrile. He has no drainage from his inguinal incision. Review of Systems No fever or drainage from incision Abdominal pain/intermittent obstructive symptoms now resolved Active Problems Allergic dermatitis (692.9) (L23.9) Bilateral renal stones (592.0) (N20.0) BPH (benign prostatic hyperplasia) (600.00) (N40.0) Chronic lower back pain (724.2,338.29) (M54.50,G89.29) Chronic migraine with aura (346.00) (G43.109) Class 1 obesity with body mass index (BMI) of 34.0 to 34.9 in adult (278.00,V85.34) (E66.9,Z68.34) Cutaneous skin tags (701.9) (L91.8) CVA (cerebrovascular accident) (434.91) (I63.9) DDD (degenerative disc disease), lumbosacral (722.52) (M51.37) DM2 (diabetes mellitus, type 2) (250.00) (E11.9) Dysuria (788.1) (R30.0) EKG abnormalities (794.31) (R94.31) Elevated PSA (790.93) (R97.20) Encounter for immunization (V03.89) (Z23) Encounter for screening for other disorder (V82.89) (Z13.89) 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) HTN (hypertension), benign (401.1) (I10) Hypertriglyceridemia (272.1) (E78.1) Kidney stones (592.0) (N20.0) LBBB (left bundle branch block) (426.3) (I44.7) Lumbar spinal stenosis (724.02) (M48.061) Mild cardiomegaly (429.3) (I51.7) 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 Padilla History of Tonsillectomy Family History Family history of chronic obstructive pulmonary disease (V17.6) (Z82.5) Family history of cardiac pacemaker (V17.49) (Z82.49) Family history of myocardial infarction (V17.3) (Z82.49) Social History Never a smoker No recent foreign travel Patient has living will (V49.89) (Z78.9) Allergies No Known Drug Allergies Recorded By: Peggy Shea; 06/15/2019 6:04:42 PM Current Meds Medication NameInstruction Accu-Chek FastClix Lancetscheck blood sugar every mourning. amLODIPine Besylate 5 MG Oral TabletTAKE 1 TABLET DAILY. Aspirin EC Low Dose 81 MG Oral Tablet Delayed ReleaseTake 1 tablet daily Atorvastatin Calcium 40 MG Oral TabletTAKE 1 TABLET Bedtime Finasteride 5 MG Oral TabletTake 1 tablet daily FreeStyle Lite Test In Vitro StripTEST BLOOD SUGAR DAILY - FIRST THING IN THE MORNING BEFORE BREAKFAST Lisinopril 40 MG Oral TabletTake 1 tablet daily metFORMIN HCl - 500 MG Oral TabletTake 1 tablet twice daily Sulfamethoxazole-Trimetho prim 800-160 MG Oral TabletTake 1 tablet daily Sulfamethoxazole-Trimetho prim 800-160 MG Oral TabletTake 1 tablet twice daily Triamterene-HCTZ 37.5-25 MG Oral TabletTAKE 1 TABLET DAILY. Vitamin B-12 1000 MCG Sublingual Tablet SublingualApply 1 tab beneath tongue once daily Vitals Vital Signs Recorded: 04Dec2022 08:47AM Heart Rate64 [id number] Xshvjmugu32 Physical Exam NAD No labored breathing Abdomen soft, non-distended, non-tender, incision clean/dry/intact, he has a slight firm ridge of healing immediately underlying the incision within the soft tissue that I suspect is induration or hematoma. He had significant weight loss and has excess skin and this incision was in the gravity dependent portion of this pannus. He has no hernia recurrence. Signatures Electron (more content not included)... 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 Questions answered. Path report reviewed. NO MALIGNANCY. Options discussed. Pros/cons of tx options reviewed. Questions answered Past MRI reviewed Diet changes for prostate health discussed and educational information given. Pros/Cons of prostate health supplements discussed. Treatment options for LUTS reviewed Discussed timed voiding. Discussed fluid and caffeine intake Prosca rand FLomax helpful Theralogix information F/U 03/28 Chief Complaint An interactive audio and video telecommunication system which permits real time communications between the patient (at the originating site) and provider (at the distant site) was utilized to provide this telehealth service. Verbal consent was requested and obtained from ALLI THOMPSON on this date, 11/12/2022 09:15 AM , for a telehealth visit. Prostate MRI bx results History of Present IllnessPatient is here for prostate MRi bx results. Path report showed benign prostatic tissue. Most recent PSA was 5.14 on 08/28.On Finasteride since 04/26. Prior PSA was 4.40 on 02/24. (He did stop finasteride on 10/25) . Prior PSA was 2.23 on 08/27. Prior PSA was 0.99 on 08/26. Hx of kidney stones. No recent sx. Denies flank pain. Denies N/V and F/C. Chronic BPH sx are mild and stable. SOme urgency and frequency. Denies dysuria. Denies hematuria. Nocturia x4-5. He did recently start back on Finasteride. He was given Uroxatral last visit but D/C this due to not seeing improvement. ED is chronic. No medication for this. Review of Systems Constitutional: No fever, No chills. Eye: glasses Ear/Nose/Mouth/Throat: Negative. Respiratory: No shortness of breath, No cough. Cardiovascular: No chest pain, No peripheral edema. Gastrointestinal: No nausea, Genitourinary: Negative except as documented in history of present illness. Hematology/Lymphatics: Patient denies being on blood thinners.. Endocrine: Negative. Immunologic: Not immunocompromised. Musculoskeletal: Negative Integumentary: Negative. Neurologic: Alert and oriented X4. Psychiatric: Negative. Active Problems Problems Allergic dermatitis (692.9) (L23.9) Bilateral renal stones (592.0) (N20.0) BPH (benign prostatic hyperplasia) (600.00) (N40.0) Chronic lower back pain (724.2,338.29) (M54.50,G89.29) Chronic migraine with aura (346.00) (G43.109) Class 1 obesity with body mass index (BMI) of 34.0 to 34.9 in adult (278.00,V85.34) (E66.9,Z68.34) Cutaneous skin tags (701.9) (L91.8) CVA (cerebrovascular accident) (434.91) (I63.9) DDD (degenerative disc disease), lumbosacral (722.52) (M51.37) DM2 (diabetes mellitus, type 2) (250.00) (E11.9) Dysuria (788.1) (R30.0) EKG abnormalities (794.31) (R94.31) Elevated PSA (790.93) (R97.20) Encounter for immunization (V03.89) (Z23) Encounter for screening for other disorder (V82.89) (Z13.89) 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) HTN (hypertension), benign (401.1) (I10) Hypertriglyceridemia (272.1) (E78.1) Kidney stones (592.0) (N20.0) LBBB (left bundle branch block) (426.3) (I44.7) Left inguinal hernia (550.90) (K40.90) Lumbar spinal stenosis (724.02) (M48.061) Mild cardiomegaly (429.3) (I51.7) 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) Nocturia (788.43) (R35.1) Osteoarthritis (715.90) (M19.90) Pain (780.96) (R52) Right hemiparesis (342.90) (G81.91) Right shoulder pain (719.41) (M25.511) Skin tag (701.9) (L91.8) Spinal stenosis, multilevel (724.00) (M48.00) Tinnitus (388.30) (H93.19) Transient right leg weakness (729.89) (R29.898) Vitamin B12 deficiency (266.2) (E53.8) Wellness examination (V70.0) (Z00.00) Surgical History Problems History of Back surgery History of Hip replacement History of Tonsillectomy Family History Mother Family history of chronic obstructive pulmonary disease (V17.6) (Z82.5) Father Family history of cardiac pacemaker (V17.49) (Z82.49) Family history of myocardial infarction (V17.3) (Z82.49) Social History Problems Never a smoker No recent foreign travel Patient has living will (V49.89) (Z78.9) Allergies Medication No Known Drug Allergies Recorded By: Peggy Shea; 06/15/2019 6:04:42 PM Current Meds Medication NameInstruction Accu-Chek FastClix Lancetscheck blood sugar every mourning. amLODIPine Besylate 5 MG Oral TabletTAKE 1 TABLET DAILY. Aspirin EC Low Dose 81 MG Oral Tablet Delayed ReleaseTake 1 tablet daily Atorvastatin Calcium 40 MG Oral TabletTAKE 1 TABLET Bedtime Finasteride 5 MG Oral TabletTake 1 tablet daily FreeStyle Lite Test In Vitro StripTEST BLOOD SUGAR DAILY - FIRST THING IN THE MORNING BEFORE BREAKFAST Lisinopril 40 MG Oral TabletTake 1 tablet daily (more content not included)... Normal [facility] GLUCOSE-[facility] 11-05-2022 Glucose [Mass/Vol] 100 mg/dL High 74 - 99 [facility] Comment on above: Performed By: #### G ANNELIESE #### [place] [address] Laboratory - Chemistry and C hemistry - challengeon 11-05-2022 Glucose [Mass/Vol] 100 mg/dL above high threshold 74 - 99 [facility] Work Phone: Order Reconciliationon 11-05 Order Reconciliation Page 1 Discharge Reconciliation Document Reconciliation Type: Discharge requested on behalf of Babs Padilla (Physician) done by Babs Padilla) Discharge - Reconciliation: 05-Nov-2022 07:19 by: Babs Padilla) Home Medications EnteredHOME MEDICATIONS AT DISCHARGE DateReconciliation Comment/ Additional Information acetaminophen 500 mg oral tablet 2 tab(s) orally every 6 hours, As Needed 21-Dec-2019 11:29 acetaminophen 500 mg oral tablet 2 tab(s) orally every 6 hours, As Needed 21-Dec-2019 11:29 acetaminophen 500 mg oral tablet is continued as acetaminophen 500 mg oral tablet amLODIPine 10 mg oral tablet 0.5 tab(s) orally once a day 21-Dec-2019 11:21 amLODIPine 10 mg oral tablet 0.5 tab(s) orally once a day 21-Dec-2019 11:21 amLODIPine 10 mg oral tablet is continued as amLODIPine 10 mg oral tablet aspirin 81 mg oral tablet, chewable 1 tab(s) orally once a day 22-Dec-2019 16:25 aspirin 81 mg oral tablet, chewable 1 tab(s) orally once a day 22-Dec-2019 16:25 aspirin 81 mg oral tablet, chewable is continued as aspirin 81 mg oral tablet, chewable atorvastatin 40 mg oral tablet 1 tab(s) orally once a day 22-Dec-2019 16:27 atorvastatin 40 mg oral tablet 1 tab(s) orally once a day 22-Dec-2019 16:27 atorvastatin 40 mg oral tablet is continued as atorvastatin 40 mg oral tablet finasteride 5 mg oral tablet 1 tab(s) orally once a day 21-Dec-2019 11:22 finasteride 5 mg oral tablet 1 tab(s) orally once a day 21-Dec-2019 11:22 finasteride 5 mg oral tablet is continued as finasteride 5 mg oral tablet hydrocodone-acetaminophen 5 mg-325 mg oral tablet 1 tab(s) orally every 8 hours 21-Oct-2022 07:59 hydrocodone-acetaminophen 5 mg-325 mg oral tablet 1 tab(s) orally every 8 hours 21-Oct-2022 07:59 hydrocodone-acetaminophen 5 mg-325 mg oral tablet is continued as hydrocodone-acetaminophen 5 mg-325 mg oral tablet lisinopril 40 mg oral tablet 1 tab(s) orally once a day 21-Dec-2019 11:21 lisinopril 40 mg oral tablet 1 tab(s) orally once a day 21-Dec-2019 11:21 lisinopril 40 mg oral tablet is continued as lisinopril 40 mg oral tablet Multiple Vitamins oral tablet 1 tab(s) orally once a day 21-Dec-2019 11:24 Multiple Vitamins oral tablet 1 tab(s) orally once a day 21-Dec-2019 11:24 Multiple Vitamins oral tablet is continued as Multiple Vitamins oral tablet triamterene-hydrochloroth iazide 37.5 mg-25 mg oral tablet 1 tab(s) orally once a day 21-Dec-2019 11:23 triamterene-hydrochloroth iazide 37.5 mg-25 mg oral tablet 1 tab(s) orally once a day 21-Dec-2019 11:23 triamterene-hydrochloroth iazide 37.5 mg-25 mg oral tablet is continued as triamterene-hydrochloroth iazide 37.5 mg-25 mg oral tablet Vitamin B12 1000 mcg oral tablet 1 tab(s) orally once a day 14-Oct-2022 12:37 Vitamin B12 1000 mcg oral tablet 1 tab(s) orally once a day 14-Oct-2022 12:37 Vitamin B12 1000 mcg oral tablet is continued as Vitamin B12 1000 mcg oral tablet Home Medications Added During Discharge Reconciliation Activity as Tolerated 05-Nov-2022, Routine, Assistance Level: None, Restrictions: None Additional Patient Instructions Do not consume alcoholic beverages for 24 hours. Additional Patient Instructions Do not make important decisions or sign any important documents for the next 24 hours. Additional Patient Instructions Do not remove steri strips, they will fall off on their own. Additional Patient Instructions Do not smoke for 24 hours. Additional Patient Instructions Keep Surgical incision dry and clean. Call Physician For: excessive bleeding (slow general oozing that completely soaks dressing or fresh bright red bleeding) or bleeding that will not stop. Apply pressure to the area and elevate. Call Physician For: inability to urinate every 8-12 hours and your bladder becomes too full or painful. Call Physician For: persistant nausea and/or vomiting Over 24 hours Call Physician For: signs and sypmtoms of infection Increased redness or swelling at incision site, increased pain/tenderness at surgical site, increased temperature greater than 100 degress, increasing and/or progressive drainage from surgical site, and/or unusual odor from surgical site. Diet Regular Discharge Discharge Diagnosis< K40.90 Inguinal hernia Discharge Provider, Peggy Padillaischsatya Instructions for Staff Only: Needs to void prior to discharge. Discharge Disposition : .Home Condition at Discharge: Satisfactory Discharge Communication Instructions for Nursing Only: Remove IV prior to discharge from hospital. Do not remove any midline, if present, without an order from the provider. Discharge Instructions - PHR After your discharge from the hospital, two Summary of Care Documents will be available online in your Personal Health Record (PHR). 1.Consolidated-Clinical Document Architecture (C-CDA) Patient Discharge Summary This document is a summary of your hospital stay to be kept for your reference.2.C-CDA Visit Summar (more content not included)... [facility] SURGICAL PATHOLOGY RESULTSon 11-04-2022 Pathology Report Name ALLI THOMPSON Pathologist: KYLE GLORIA DO Date of Procedure: 10/21/2022 Date Received: 10/22/2022 Date Reported 11/04/2022 Submitting Physician: ALLI ORONA II, MD Location: [facility] Other External # FINAL DIAGNOSIS A. LEFT PROSTATE BIOPSY: - BENIGN PROSTATIC TISSUE B. RIGHT PROSTATE BIOPSY: - BENIGN PROSTATIC TISSUE C. LESION OF INTEREST BIOPSY: - BENIGN PROSTATIC TISSUE Electronically Signed Out By KYLE GLORIA DO/MEK By the signature on this report, the individual or group listed as making the Final Interpretation/Diagnosis certifies that they have reviewed this case. Diagnostic interpretation performed at [facility] [address] [place] [address] Clinical History: Physician Contact Number: [phone] Fixative (A): Formalin Fixative (B): Formalin Fixative (C): Formalin Clinical Diagnosis History PROSTATE NEEDLE BIOPSY Specimens Submitted As: A: LEFT PROSTATE BIOPSY B: RIGHT PROSTATE BIOPSY C: LESION OF INTEREST BIOPSY Gross Description: A: Received in formalin, labeled with the patient's name and hospital number and left prostate biopsy, are multiple cylindrical segments of mehta soft tissue ranging from 0.6 to 2.4 cm in length by less than 0.1 cm in diameter. The specimen is submitted in toto in 2 cassettes. LMP B: Received in formalin, labeled with the patient's name and hospital number and right prostate biopsy, are multiple cylindrical segments of mehta soft tissue ranging from 0.6 to 2.1 cm in length by less than 0.1 cm in diameter. The specimen is submitted in toto in 2 cassettes. LMP C: Received in formalin, labeled with the patient's name and hospital number and region of interest biopsy, are multiple cylindrical segments of mehta soft tissue ranging from 1.2 to 1.5 cm in length by less than 0.1 cm in diameter. The specimen is submitted in toto in one cassette. 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), center location, insurance information Prep Instructions Reviewedyes Instructed to Have No Fluids Aftermidnight How to be AddressedJohn Spoken Language PreferredEnglish Source of Informationpatient Stated Reason for Admissionleft side hernia surgery Primary Contact Name and Numberself Medications Brought to Hospitalno General Health: Weight in kg81.5 kilogram(s) Weight in tzj944.6 pound(s) Weight Methodactual (measured) Scale Typestanding Height in feet5 feet Height in inches6.97 inch(es) Height in cm170.1 centimeter(s) Height Methodstated BMI (kg/m2)28.167 square meter Patient or Family Member Reaction to Anesthesiano previous reaction; no previous family member reaction Blood Avoidance/Restrictionsnon e Previous Transfusion Reactionnot applicable Health Mgmt: Symptoms/Conditions Managed at Homecardiovascular Cardiovascular Symptoms/Conditionshypert ension Cardiovascular Management Strategiesmedication therapy Barriers to Managing Healthnone Relationship/Environ: Lives Withspouse Living Arrangementshouse Resource/Environmental Concernsnone [facility] Anticipated at Transitionnone Tobacco Use: Tobacco Useno Pre-op Checklist: Arrival [id number] Arrival Time07:05 Procedure TypeLeft inguinal hernia repair NPOyes Last Food [id number] 18:00 Last Clear Fluid [id number] 21:00 ID Band On Patientpatient ID (name) Consent Signedyes H&P Completeyes, H and P verrified with consent: Prostate Anesthesia Assessment Completedyes EKG Performednot ordered Chest X-Ray Performednot ordered Preop Antibioticsstarted in preop Glucose [id number] Type and Screen Resultedn/a Chlorhexadine Bath Givencompleted at home Nasal Antiseptic Appliednot applicable Soap and Water Bath the Night Before Surgerynot applicable Hair Washed with Shampoonot applicable Bowel Prepno Surgical Site Infection Preventionno Pain Scales and Managementyes Additional Information: Information Review: Allergies, Home Meds and Significant Events have been Reviewed and Verified with Patient/Familyyes Allergy, Intolerance, Adverse Event: Allergies: No Known Allergies: Active Electronic Signatures: Kate Lima (KITA) (Signed 05-Nov-2022 07:18) Authored: Initial Info, General Health, Pre-op Checklist, Additional Information Sheyla Jimenez) (Signed 30-Oct-2022 10:44) Authored: Initial Info, General Health, Health Mgmt, Relationship/Environ, Tobacco Use, Pre-op Checklist, Additional Information Last Updated: 05-Nov-2022 07:18 by Kate Lima) [facility] No Panel Informationon 10-29 [email or web address] ?[email or web address]=[id number]&Date =29-10-2022&Time=07%3a37% 3a51%3a00&TestType=ECG&Si te=14&OutputType=PDF&Ext= PDF BD-Eovbpoi-Z [facility] Work Phone: Sinus rhythm with 1s t degree AV block KI-Eoqqeje-M [facility] Work Phone: Abnormal FR-Jvrpcws-L [employer] Work Phone: [phone] AF-Yhrcojz-S [place] Work Phone: [phone] SY-Ouwfdex-C [employer] Work Phone: [phone] QK-Ghykwax-Q [employer] Work Phone: [phone] 1 YA-Lbxqlsx-Y [employer] Work Phone: [phone] AI-Fpfctkd-K [employer] Work Phone: 11 1 IY-[place]iowa-P [employer] Work Phone: [phone] 1 KO-Rkwmvxe-N [employer] Work Phone: [phone] BI-Xdpdwcp-Y [employer] Work Phone: [phone] 1 HO-Hhkbxli-N [employer] Work Phone: [phone] IJ-Itafxvd-A [employer] Work Phone: [phone] KG-Kvxivck-C [employer] Work Phone: [phone] 1 TF-Czuvlct-L [employer] Work Phone: [phone] ZM-Vloxisg-W [employer] Work Phone: [phone] 1 PP-Mavqtjg-M [employer] Work Phone: GLUCOSE-POCTon 10-21-2022 Glucose [Mass/Vol] 85 mg/dL Normal 74 - 99 [facility] Comment on above: Performed By: #### G ANNELIESE #### [place] [address] Glucose Test strip manual (B ld) [Mass/Vol]on 10-21-2022 Glucose [Mass/Vol] 85 mg/dL 74 - 99 mg/dL [facility] - Chemistry and C hemistry - challengeon 10-21-2022 Glucose [Mass/Vol] 85 mg/dL 74 - 99 MP-Uro logy-A [employer] Work Phone: No Panel Informationon 10-21 OB-Sxnmmci-H [employer] Work Phone: Order Reconciliationon 10-21 Order Reconciliation Page 1 Discharge Reconciliation Document Reconciliation Type: Discharge requested on behalf of Alli Orona (Physician) done by Alli Orona) Discharge - Reconciliation: 21-Oct-2022 07:59 by: Alli Orona) Home Medications EnteredHOME MEDICATIONS AT DISCHARGE DateReconciliation Comment/ Additional Information acetaminophen 500 mg oral tablet 2 tab(s) orally every 6 hours, As Needed 21-Dec-2019 11:29 acetaminophen 500 mg oral tablet 2 tab(s) orally every 6 hours, As Needed 21-Dec-2019 11:29 acetaminophen 500 mg oral tablet is continued as acetaminophen 500 mg oral tablet amLODIPine 10 mg oral tablet 0.5 tab(s) orally once a day 21-Dec-2019 11:21 amLODIPine 10 mg oral tablet 0.5 tab(s) orally once a day 21-Dec-2019 11:21 amLODIPine 10 mg oral tablet is continued as amLODIPine 10 mg oral tablet aspirin 81 mg oral tablet, chewable 1 tab(s) orally once a day 22-Dec-2019 16:25 aspirin 81 mg oral tablet, chewable 1 tab(s) orally once a day 22-Dec-2019 16:25 aspirin 81 mg oral tablet, chewable is continued as aspirin 81 mg oral tablet, chewable atorvastatin 40 mg oral tablet 1 tab(s) orally once a day 22-Dec-2019 16:27 atorvastatin 40 mg oral tablet 1 tab(s) orally once a day 22-Dec-2019 16:27 atorvastatin 40 mg oral tablet is continued as atorvastatin 40 mg oral tablet finasteride 5 mg oral tablet 1 tab(s) orally once a day 21-Dec-2019 11:22 finasteride 5 mg oral tablet 1 tab(s) orally once a day 21-Dec-2019 11:22 finasteride 5 mg oral tablet is continued as finasteride 5 mg oral tablet lisinopril 40 mg oral tablet 1 tab(s) orally once a day 21-Dec-2019 11:21 lisinopril 40 mg oral tablet 1 tab(s) orally once a day 21-Dec-2019 11:21 lisinopril 40 mg oral tablet is continued as lisinopril 40 mg oral tablet Multiple Vitamins oral tablet 1 tab(s) orally once a day 21-Dec-2019 11:24 Multiple Vitamins oral tablet 1 tab(s) orally once a day 21-Dec-2019 11:24 Multiple Vitamins oral tablet is continued as Multiple Vitamins oral tablet triamterene-hydrochloroth iazide 37.5 mg-25 mg oral tablet 1 tab(s) orally once a day 21-Dec-2019 11:23 triamterene-hydrochloroth iazide 37.5 mg-25 mg oral tablet 1 tab(s) orally once a day 21-Dec-2019 11:23 triamterene-hydrochloroth iazide 37.5 mg-25 mg oral tablet is continued as triamterene-hydrochloroth iazide 37.5 mg-25 mg oral tablet Vitamin B12 1000 mcg oral tablet 1 tab(s) orally once a day 14-Oct-2022 12:37 Vitamin B12 1000 mcg oral tablet 1 tab(s) orally once a day 14-Oct-2022 12:37 Vitamin B12 1000 mcg oral tablet is continued as Vitamin B12 1000 mcg oral tablet Current OrdersDateHOME MEDICATIONS AT DISCHARGE DateReconciliation Comment/ Additional Information HYDROmorphone Injectable (DILAUDID)DOSE = 0.25 mg IntraVenous Push Every 5 Minutes, PRN Pain - Mod (4-6) (PACU)Clinician Notes: Isa-operative order ONLYMax total of 4 mg regardless of dose. 20-Oct-2022 10:36 HYDROmorphone Injectable is not required Lactated Ringers Infusion IV Bag Volume = 1,000 mL Run at: 100 mL/hr IntraVenous Clinician Notes: Isa-operative order ONLY 20-Oct-2022 10:36 Lactated Ringers Infusion is not required Naloxone Injectable (NARCAN)DOSE = 0.2 mg IntraVenous Push Once, PRN If patient RR below 10, obtunded or unarousableClinician Notes: DO NOT ADMINISTER UNTIL PHYSiCIAN HAS BEEN NOTIFIED AND ASSESSED PATIENT 20-Oct-2022 10:36 Naloxone Injectable is not required Home Medications Added During Discharge Reconciliation Call Physician For: inability to urinate every 8-12 hours and your bladder becomes too full or painful. Call Physician For: signs and sypmtoms of infection Increased redness or swelling at incision site, increased pain/tenderness at surgical site, increased temperature greater than 100 degress, increasing and/or progressive drainage from surgical site, and/or unusual odor from surgical site. Diet Regular Discharge Discharge Diagnosis< R97.20 Elevated PSA Discharge Provider, Alli Orona Discharge Disposition : .Home Condition at Discharge: Satisfactory Discharge Communication Instructions for Nursing Only: Remove IV prior to discharge from hospital. Do not remove any midline, if present, without an order from the provider. Discharge Instructions - PHR After your discharge from the hospital, two Summary of Care Documents will be available online in your Personal Health Record (PHR). 1.Consolidated-Clinical Document Architecture (C-CDA) Patient Discharge Summary This document is a summary of your hospital stay to be kept for your reference.2.C-CDA Visit Summary This document is a summary of your hospital stay to be shared with your follow-up providers (doctor, wig maker, physical therapist, etc.). Follow Up with [facility] in 1-2 Weeks results hydrocodone-acetaminophen 5 mg-325 mg oral tablet 1 tab(s) orally every 8 hours Post Procedure Discharge Criteria Criteria: Easily arousable / responding appropriately; Significa (more content not included)... Normal [facility] PT Progress Noteon 3 PT Progress Note Therapy Diagnosis Assessed Pain (780.96) (R52) Transient right leg weakness (729.89) (R29.898) Plan Goals: Goals set and discussed today. LTG's: 1) Improve LE strength from 4/5 to >= 5-/5 throughout in order to facilitate safe gait and mobility. 4-6 wks 10/15/2022, MET, B/L LE strength 5-/5 throughout 2) Improve Static/Dynamic Standing balance to >= Good (-) against perturbations and reaching outside REJI in order to improve safety with mobility. 4-6 wks 10/15/2022, MET, Static/dynamic standing balance Good (-) 3) Improve Carranza Balance Test score from a 47 to >= 52/56 in order to improve safety with mobility. 4-6 wks 10/15/2022, MET, pt scored a 54/56 on Carranza Balance test at DC 4) Improve LFES score by >= 5 points in order to improve QOL. 4-6 wks 10/15/2022, MET, pt improved score from a 43 to a 52 at DC 5) Pt will be able to walk longer distances, negotiate stairs and return to exercise, and work around the home without significant limitation. 4-6 wks 10/15/2022, MET, pt can do the above activity but is cautious with them. Pt reports that he did some outside lawn work the other day and felt good doing so. ST) Pt/caregiver will be I and consistent with HEP with use of handout as needed in order to maximize strength and flexibility. 2-3 wks 10/15/2022, MET, pt is I with current HEP and has handouts. Planned interventions include: education/instruction, home program, neuromuscular re-education and therapeutic exercises. Frequency and duration: No further visits planned. Potential to achieve rehab goals is good 10/15/2022 PT DC Summary: The pt has made good objective progress in PT with improved b/l LE strength and balance. The pt has MET all of his PT goals and is I with current HEP. DC PT at this time. Discharge patient: Achieved all and/or the most significant goal(s). Assessment The pt has made good objective progress in PT with improved b/l LE strength and balance. The pt has MET all of his PT goals and is I with current HEP. DC PT at this time. Response to treatment: improved strength and improved balance. Adult Risk Screening There are no spiritual/cultural practices/values/needs that are important to know Initial Fall Risk Screening: ALLI has not fallen in the last 6 months. His fall did not result in injury. ALLI does not have a fear of falling. He does not need assistance with sitting, standing or walking. Does not need assistance walking in his home. He does not need assistance in an unfamiliar setting. The patient is not using an assistive device. Fall Risk Screening: Patient is identified as a fall risk. Care Plan: Low Risk: Environmental for all patients and low risk patients: Offer assistance as needed or requested, keep environment free of obstacles, keep floor clean and dry, keep room lighting, wheelchair brakes on, bed/ stretcher locked and in low position if applicable, non-slip footwear if applicable, walker/cane available if needed, side rails up if applicable and pre-emptive toileting. Pain Scale: On a scale of 0 to 10, the patient rates the pain at 0. Please identify location of pain: R LE Pain is not a major issue for pt. Pain Quality: aching. The pain makes it hard for the patient to do these things: walking, exercise and house work. Living Will. Living Will: Living will on file. Healthcare POA: Health care proxy on file. Declaration of Mental Health Treatment: No mental health treatment on file. Depression/Suicide Screening: During the past 2 weeks, the patient has not felt down, depressed or hopeless. During the past 2 weeks, the patient has not felt little interest or pleasure in doing things. Insurance Insurance reviewed Visit number: 9 Subjective Patient reports:. Pt reports that he is doing well and that PT has helped with overall LE strength and balance. Pt is I with HEP and reports that he will continue with his ex's after DC today. Home program performing as directed: Yes. Precautions: Fall Risk: low PMH: DM, Stroke, HTN, migraines, B/l THR, lumbar spine fusion. Treatment Time in clinic started at 9:00 am Time in clinic ended at 8:25 am Total time in clinic is 25 minutes. Total timed code time is 24 minutes. Therapeutic exercise (58654): timed minutes 24, units 2 . Stepper, Lv 1.5, x7 mins Slant Board x2 30 ea B Standing Heel raises on step 2 x 15 reps Anterior and Lateral Step ups, 6 2 x 10 ea B Standing Hip Abduction x 20 4# ea B X Standing Hip Flexion x 20 4# ea B, marches X Standing Hip extension x 20 4# ea B X Standing HS Curls x 20 4# ea B X Mini Squats 2 x10 reps BOSU Lunges x 20 reps ea leg X SLS on airex in // bars 3 x 10 sec hold ea leg X Shuttle Leg Press 2 x 10 reps B/L / U/L 65#/40# X Sports Cord 1 cord Fwd/Backward only x 5 reps ea (spot closely) X //bars: X today tandem gait x2 laps side steps x2 laps PT DC Summary Completed Today. DC to HEP: Seated marches 2 x 10 X Seated hip abd blue band 2 x (more content not included)... 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), center location, insurance information Prep Instructions Reviewedyes Instructed to Have No Fluids Aftermidnight How to be AddressedJohn Spoken Language PreferredEnglish Source of Informationpatient Stated Reason for AdmissionProstate biopsy Primary Contact Name and Numberself Medications Brought to Hospitalno General Health: Weight in kg82.1 kilogram(s) Weight in row474.9 pound(s) Weight Methodactual (measured) Scale Typestanding Height in feet5 feet Height in inches6.97 inch(es) Height in cm170.1 centimeter(s) Height Methodstated BMI (kg/m2)28.374 square meter Patient or Family Member Reaction to Anesthesiano previous reaction; no previous family member reaction Blood Avoidance/Restrictionsnon e Previous Transfusion Reactionnot applicable Health Mgmt: Symptoms/Conditions Managed at Homecardiovascular Cardiovascular Symptoms/Conditionshypert ension Cardiovascular Management Strategiesmedication therapy Barriers to Managing Healthnone Relationship/Environ: Lives Withspouse Living Arrangementshouse Resource/Environmental Concernsnone Anticipated Transition [facility] Anticipated at Transitionnone Tobacco Use: Tobacco Useno Pre-op Checklist: Arrival [id number] Arrival Time06:09 Procedure TypeProstate biopsy NPOyes Last Food [id number] 18:00 Last Clear Fluid [id number] 18:00 ID Band On Patientpatient ID (name) Consent Signedyes H&P Completeyes, H and P verrified with consent: Prostate Anesthesia Assessment Completedyes EKG Performednot ordered Chest X-Ray Performednot ordered Preop Antibioticsnot ordered Glucose [id number] Type and Screen Resultedn/a Nasal Antiseptic Appliednot applicable Soap and Water Bath the Night Before Surgerynot applicable Hair Washed with Shampoonot applicable Bowel Prepno OtherLaxative at 8pm Surgical Site Infection Preventionno Pain Scales and Managementyes Additional Information: Information Review: Allergies, Home Meds and Significant Events have been Reviewed and Verified with Patient/Familyyes Allergy, Intolerance, Adverse Event: Allergies: No Known Allergies: Active Problem List: Medical History: Hernia: Catalog Name: Unspecified abdominal hernia without obstruction or gangrene Hypercholesterolemia: Catalog Name: Pure hypercholesterolemia, unspecified Hypertension: Catalog Name: Essential (primary) hypertension Diabetes mellitus: Catalog Name: Type 2 diabetes mellitus without complications CVA (cerebral vascular accident): Catalog Name: Cerebral infarction, unspecified, Description: in 2020, no deficits Migraines: Catalog Name: Migraine, unspecified, not intractable, without status migrainosus BPH (benign prostatic hyperplasia): Catalog Name: Benign prostatic hyperplasia without lower urinary tract symptoms Surg History: History of tonsillectomy: Catalog Name: Acquired absence of other organs History of hip replacement, total: Catalog Name: Presence of unspecified artificial hip joint History of spinal surgery: Catalog Name: Other specified postprocedural states Electronic Signatures: Dana Dye (RN) (Signed 21-Oct-2022 06:34) Authored: Initial Info, General Health, Health Mgmt, Relationship/Environ, Pre-op Checklist, Additional Information Sheyla JimenezRN) (Signed 14-Oct-2022 12:41) Authored: Initial Info, General Health, Tobacco Use, Additional Information Last Updated: 21-Oct-2022 06:34 by Dana Dye (KITA) [facility] PT Progress Noteon 3 PT Progress Note Therapy Diagnosis Assessed Pain (780.96) (R52) Transient right leg weakness (729.89) (R29.898) Plan Goals: Goals set and discussed today. LTG's: 1) Improve LE strength from 4/5 to >= 5-/5 throughout in order to facilitate safe gait and mobility. 4-6 wks 2) Improve Static/Dynamic Standing balance to >= Good (-) against perturbations and reaching outside REJI in order to improve safety with mobility. 4-6 wks 3) Improve Carranza Balance Test score from a 47 to >= 52/56 in order to improve safety with mobility. 4-6 wks 4) Improve LFES score by >= 5 points in order to improve QOL. 4-6 wks 5) Pt will be able to walk longer distances, negotiate stairs and return to exercise, and work around the home without significant limitation. 4-[address]) Pt/caregiver will be I and consistent with HEP with use of handout as needed in order to maximize strength and flexibility. 2-3 wks Planned interventions include: education/instruction, home program, neuromuscular re-education and therapeutic exercises. Frequency and duration: 2 time(s) a week, for 4 weeks, for 9 visits. Potential to achieve rehab goals is good Continue strengthening, ROM, flexibility, balance, and gait to improve functional mobility. Progress with POC, as tolerated. Assessment Good form and tolerance to ex's performed today without significant pain increase. Pt is getting stronger with his ex's and performs them with clean form. Response to treatment: improved strength and improved balance. Adult Risk Screening There are no spiritual/cultural practices/values/needs that are important to know Initial Fall Risk Screening: ALLI has not fallen in the last 6 months. His fall did not result in injury. ALLI does not have a fear of falling. He does not need assistance with sitting, standing or walking. Does not need assistance walking in his home. He does not need assistance in an unfamiliar setting. The patient is not using an assistive device. Fall Risk Screening: Patient is identified as a fall risk. Care Plan: Low Risk: Environmental for all patients and low risk patients: Offer assistance as needed or requested, keep environment free of obstacles, keep floor clean and dry, keep room lighting, wheelchair brakes on, bed/ stretcher locked and in low position if applicable, non-slip footwear if applicable, walker/cane available if needed, side rails up if applicable and pre-emptive toileting. Pain Scale: On a scale of 0 to 10, the patient rates the pain at 0. Please identify location of pain: R LE Pain is not a major issue for pt. Pain Quality: aching. The pain makes it hard for the patient to do these things: walking, exercise and house work. Living Will. Living Will: Living will on file. Healthcare POA: Health care proxy on file. Declaration of Mental Health Treatment: No mental health treatment on file. Depression/Suicide Screening: During the past 2 weeks, the patient has not felt down, depressed or hopeless. During the past 2 weeks, the patient has not felt little interest or pleasure in doing things. Insurance Insurance reviewed Visit number: 8 Subjective Patient reports:. Pt reports that he is doing good this morning. No new c/o's today. Home program performing as directed: Yes. Precautions: Fall Risk: low PMH: DM, Stroke, HTN, migraines, B/l THR, lumbar spine fusion. Treatment Time in clinic started at 9:15 am Time in clinic ended at 9:55 am Total time in clinic is 40 minutes. Total timed code time is 39 minutes. Therapeutic exercise (25630): timed minutes 39, units 3 . Stepper, Lv 1.5, x7 mins Slant Board x2 30 ea B Standing Heel raises on step 2 x 15 reps Anterior and Lateral Step ups, 6 2 x 10 ea B Standing Hip Abduction x 20 4# ea B Standing Hip Flexion x 20 4# ea B, marches Standing Hip extension x 20 4# ea B Standing HS Curls x 20 4# ea B Mini Squats 2 x10 reps BOSU Lunges x 20 reps ea leg SLS on airex in // bars 3 x 10 sec hold ea leg Shuttle Leg Press 2 x 10 reps B/L / U/L 65#/40# Sports Cord 1 cord Fwd/Backward only x 5 reps ea (spot closely) //bars: X today tandem gait x2 laps side steps x2 laps DC to HEP: Seated marches 2 x 10 X Seated hip abd blue band 2 x 10 reps X seated hip add squeezing fists 2 x 10 reps play ball X Seated Heel to toe raises x 10 reps (X) Seated LAQ 2 x 10 reps, 3# ea X Seated HS curls blue band 2 x 10 reps X . Provided today: education . Edu on proper form and speed of movement with ex's. Pt verbalized/demonstrated good understanding. 'Scores and Scales' Signatures Electronically signed by : Michele Castrejon PT; Oct 13 2022 9:54AM EST (Author) [facility] Initial Visit (General Surge ry)on 10-09-2022 Initial Visit (General Surgery) Diagnoses/Problems Left inguinal hernia (550.90) (K40.90) Orders Left inguinal hernia Electrocardiogram EKG; Status:Hold For - Scheduling,Retrospective Authorization; Requested for:29Oct2022; Perform:[facility]; Due:[id number]; Last Updated By:Mila Lance; 10/09/2022 1:51:25 PM;Ordered; For:Left inguinal hernia; Ordered By:Babs Padilla; Provider Impressions Mr. Thompson is a 72-year-old male with a large but reducible left inguinal hernia containing colon. I have recommended an open repair of this hernia as I feel a laparoscopic approach would be difficult with the excess loose skin in this region. Even with an open approach, I plan on taping his pannus upward. He denies sensitivity to tape and was in agreement with this plan. Risks, benefits and alternatives of open inguinal hernia repair were discussed with the patient. This included risk of bleeding, infection, spermatic cord injury, testicular injury or loss, nerve injury, and hernia recurrence. We also discussed risk of urinary retention and potential discharge with catheterization if he is unable to void postoperatively. He reports requiring intermittent self-catheterization in the past. We discussed that mesh will be used in this hernia repair. The patient was agreeable to proceed with surgery and is scheduled for open left inguinal hernia repair under general anesthesia on 11/05/22. We discussed that there is no urgency to this, and we could push this date back further if necessary, as his prostate biopsy should take precedent over the hernia repair. He also wants to wait until his returns from a planned vacation. We will obtain a preoperative baseline EKG. He will need to hold his aspirin for this procedure. Chief Complaint Left inguinal hernia History of Present IllnessMr. Thompson is a 72-year-old male seen at the request of Dr. Orona for evaluation of a left inguinal hernia. For the past several months, he has noticed a bulge in the left groin. He has some discomfort associated with this bulge. Back in April, he had an episode where he was on a ladder and felt a pulling sensation was bruised in the left groin. He subsequently developed a burning type pain in the left groin. That has since subsided, but some discomfort still persist at the site of this hernia over the past few months. He can occasionally reduce the hernia himself. He reports that his bowel movements or more irregular over the past few months and he can have cramping discomfort when he is unable to have a bowel movement. He denies any symptoms on the right. He has no previous abdominal surgery. He has intentionally lost approximately 90 pounds over the past year and has significant loose skin that overhangs the site of this hernia. He has frequent urination, nighttime urination, and takes medication for his prostate. He recently had an MRI for the prostate and has plans for a prostate biopsy, although this is not yet scheduled. This MRI also confirmed the left inguinal hernia, which was containing colon at time of scan. He has a history of high blood pressure and diabetes, although these are improving with his weight loss. He had a history of a bundle branch block on old EKG, but he has since undergone back surgery and hip replacement and denies any issues with anesthesia at this time. He also had a subsequent echo which showed 60 to 65% ejection fraction. He is able to walk stairs without any chest pain or shortness of breath. Review of Systems Constitutional: no fever, sweats, and chills Cardiovascular: No chest pain or palpitations Respiratory: No cough or shortness of breath Gastrointestinal: + Bulge in the left groin, change in regularity of bowel movements over the past several months, occasional cramping abdominal pain Genitourinary: + Regular nighttime urination, frequent urination Musculoskeletal: + Joint pain/stiffness, arthritis Integumentary: no rashes Neurological: no confusion Endocrine: no heat or cold intolerance Heme/Lymph: no easy bruising or bleeding Active Problems Allergic dermatitis (692.9) (L23.9) Bilateral renal stones (592.0) (N20.0) BPH (benign prostatic hyperplasia) (600.00) (N40.0) Chronic lower back pain (724.2,338.29) (M54.50,G89.29) Chronic migraine with aura (346.00) (G43.109) Class 1 obesity with body mass index (BMI) of 34.0 to 34.9 in adult (278.00,V85.34) (E66.9,Z68.34) Cutaneous skin tags (701.9) (L91.8) CVA (cerebrovascular accident) (434.91) (I63.9) DDD (degenerative disc disease), lumbosacral (722.52) (M51.37) DM2 (diabetes mellitus, type 2) (250.00) (E11.9) Dysuria (788.1) (R30.0) EKG abnormalities (794.31) (R94.31) Elevated PSA (790.93) (R97.20) Encounter for immunization (V03.89) (Z23) Encounter for screening for other disorder (V82.89) (Z13.89) 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 Normal [facility] Office Visit (Urology)on Follow-up visit Diagnoses/Problems Assessed Elevated PSA (790.93) (R97.20) BPH (benign prostatic hyperplasia) (600.00) (N40.0) Nocturia (788.43) (R35.1) Patient Discussion/Summary All available PSA values reviewed, Options discussed. Questions answered. .MRI reviewed Pros and cons of prostate biopsy reviewed. Other options discussed. Questions answered Pre-procedure AntibX Given Treatment options for LUTS reviewed Continue Prosca-refilled D/C Uroxatrol-Done Discussed timed voiding. Discussed fluid and caffeine intake Treatment options for ED reviewed. Lifestyle change to help prevent UTIs discussed. Encouraged fluid intake. Self start Bactrim Rx given F/U MRI guided Bx Chief Complaint Prostate MRI results History of Present IllnessPatient is here for prostate MRI results. MRI showed PI-RAD 4 lesion..Most recent PSA was 5.14 on 08/28.On Finasteride since 04/26. Prior PSA was 4.40 on 02/24. (He did stop finasteride on 10/25) . Prior PSA was 2.23 on 08/27. Prior PSA was 0.99 on 08/26. Hx of kidney stones. No recent sx. Denies flank pain. Denies N/V and F/C. Chronic BPH sx are mild and stable. SOme urgency and frequency. Denies dysuria. Denies hematuria. Nocturia x4-5. He did recently start back on Finasteride. He was given Uroxatral last visit but D/C this due to not seeing improvement. ED is chronic. No medication for this. Review of Systems Constitutional: No fever, No chills. Eye: glasses . Ear/Nose/Mouth/Throat: Negative. Respiratory: No shortness of breath, No cough. Cardiovascular: No chest pain, No peripheral edema. Gastrointestinal: No nausea, Genitourinary: Negative except as documented in history of present illness. Hematology/Lymphatics: Patient denies being on blood thinners.. Endocrine: Negative. Immunologic: Not immunocompromised. Musculoskeletal: Negative Integumentary: Negative. Neurologic: Alert and oriented X4. Psychiatric: Negative. Active Problems Problems Allergic dermatitis (692.9) (L23.9) Bilateral renal stones (592.0) (N20.0) BPH (benign prostatic hyperplasia) (600.00) (N40.0) Chronic lower back pain (724.2,338.29) (M54.50,G89.29) Chronic migraine with aura (346.00) (G43.109) Class 1 obesity with body mass index (BMI) of 34.0 to 34.9 in adult (278.00,V85.34) (E66.9,Z68.34) Cutaneous skin tags (701.9) (L91.8) CVA (cerebrovascular accident) (434.91) (I63.9) DDD (degenerative disc disease), lumbosacral (722.52) (M51.37) DM2 (diabetes mellitus, type 2) (250.00) (E11.9) Dysuria (788.1) (R30.0) EKG abnormalities (794.31) (R94.31) Elevated PSA (790.93) (R97.20) Encounter for immunization (V03.89) (Z23) Encounter for screening for other disorder (V82.89) (Z13.89) 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) HTN (hypertension), benign (401.1) (I10) Hypertriglyceridemia (272.1) (E78.1) Kidney stones (592.0) (N20.0) LBBB (left bundle branch block) (426.3) (I44.7) Left inguinal hernia (550.90) (K40.90) Lumbar spinal stenosis (724.02) (M48.061) Mild cardiomegaly (429.3) (I51.7) 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) Nocturia (788.43) (R35.1) Osteoarthritis (715.90) (M19.90) Pain (780.96) (R52) Right hemiparesis (342.90) (G81.91) Right shoulder pain (719.41) (M25.511) Skin tag (701.9) (L91.8) Spinal stenosis, multilevel (724.00) (M48.00) Tinnitus (388.30) (H93.19) Transient right leg weakness (729.89) (R29.898) Vitamin B12 deficiency (266.2) (E53.8) Wellness examination (V70.0) (Z00.00) Surgical History Problems History of Hip replacement History of Tonsillectomy Family History Mother Family history of chronic obstructive pulmonary disease (V17.6) (Z82.5) Father Family history of cardiac pacemaker (V17.49) (Z82.49) Family history of myocardial infarction (V17.3) (Z82.49) Social History Problems Never a smoker No recent foreign travel Patient has living will (V49.89) (Z78.9) Allergies Medication No Known Drug Allergies Recorded By: Peggy Shea; 06/15/2019 6:04:42 PM Current Meds Medication NameInstruction Accu-Chek FastClix Lancetscheck blood sugar every mourning. amLODIPine Besylate 5 MG Oral TabletTAKE 1 TABLET DAILY. Aspirin EC Low Dose 81 MG Oral Tablet Delayed ReleaseTake 1 tablet daily Atorvastatin Calcium 40 MG Oral TabletTAKE 1 TABLET Bedtime Finasteride 5 MG Oral TabletTake 1 tablet daily FreeStyle Lite Test In Vitro StripTEST BLOOD SUGAR DAILY - FIRST THING IN THE MORNING BEFORE BREAKFAST Lisinopril 40 MG Oral TabletTake 1 tablet daily metFORMIN HCl - 500 MG Oral TabletTake 1 tablet twice daily Sulfamethoxazole-Trimetho prim 800-160 MG Oral TabletTake 1 tablet twice daily Triamterene-HCTZ 37.5-25 MG Oral TabletTAKE 1 TABLET DAILY. Vitamin B-12 1000 MCG Sublingual Tablet SublingualApply 1 tab beneath tongue once daily Vitals Vital Signs Recorded: 08Oct2022 09:22AM Heart Rate86 Mesmveld481 Qvtrofaou47 Jtyjrd220 lb BMI Idvjbbsbty19.29 kg/m2 (more content not included)... Normal [facility] PT Progress Noteon 3 PT Progress Note Therapy Diagnosis Assessed Pain (780.96) (R52) Transient right leg weakness (729.89) (R29.898) Plan Goals: Goals set and discussed today. LTG's: 1) Improve LE strength from 4/5 to >= 5-/5 throughout in order to facilitate safe gait and mobility. 4-6 wks 2) Improve Static/Dynamic Standing balance to >= Good (-) against perturbations and reaching outside REJI in order to improve safety with mobility. 4-6 wks 3) Improve Carranza Balance Test score from a 47 to >= 52/56 in order to improve safety with mobility. 4-6 wks 4) Improve LFES score by >= 5 points in order to improve QOL. 4-6 wks 5) Pt will be able to walk longer distances, negotiate stairs and return to exercise, and work around the home without significant limitation. 4-[address]) Pt/caregiver will be I and consistent with HEP with use of handout as needed in order to maximize strength and flexibility. 2-3 wks Planned interventions include: education/instruction, home program, neuromuscular re-education and therapeutic exercises. Frequency and duration: 2 time(s) a week, for 4 weeks, for 9 visits. Potential to achieve rehab goals is good Continue strengthening, ROM, flexibility, balance, and gait to improve functional mobility. Progress with POC, as tolerated. Assessment Good form and tolerance to ex's performed today without significant pain increase. Pt challenged with progressed resistance with ex's today. Response to treatment: improved strength. Patient was able to complete today's treatment with some difficulty. Adult Risk Screening There are no spiritual/cultural practices/values/needs that are important to know Initial Fall Risk Screening: ALLI has not fallen in the last 6 months. His fall did not result in injury. ALLI does not have a fear of falling. He does not need assistance with sitting, standing or walking. Does not need assistance walking in his home. He does not need assistance in an unfamiliar setting. The patient is not using an assistive device. Fall Risk Screening: Patient is identified as a fall risk. Care Plan: Low Risk: Environmental for all patients and low risk patients: Offer assistance as needed or requested, keep environment free of obstacles, keep floor clean and dry, keep room lighting, wheelchair brakes on, bed/ stretcher locked and in low position if applicable, non-slip footwear if applicable, walker/cane available if needed, side rails up if applicable and pre-emptive toileting. Pain Scale: On a scale of 0 to 10, the patient rates the pain at 0. Please identify location of pain: R LE Pain is not a major issue for pt. Pain Quality: aching. The pain makes it hard for the patient to do these things: walking, exercise and house work. Living Will. Living Will: Living will on file. Healthcare POA: Health care proxy on file. Declaration of Mental Health Treatment: No mental health treatment on file. Depression/Suicide Screening: During the past 2 weeks, the patient has not felt down, depressed or hopeless. During the past 2 weeks, the patient has not felt little interest or pleasure in doing things. Insurance Insurance reviewed Visit number: 7 Subjective Patient reports:. Pt reports that he is doing well today without any new c/o's or complications. Pt reports that he is pretty I with his ex's and does them at home. Home program performing as directed: Yes. Precautions: Fall Risk: low PMH: DM, Stroke, HTN, migraines, B/l THR, lumbar spine fusion. Treatment Time in clinic started at 1:45 pm Time in clinic ended at 2:25 pm Total time in clinic is 40 minutes. Total timed code time is 39 minutes. Therapeutic exercise (45213): timed minutes 39, units 3 . Stepper, Lv 1.5, x7 mins Slant Board x2 30 ea B Standing Heel raises on step 2 x 15 reps Anterior and Lateral Step ups, 6 2 x 10 ea B Standing Hip Abduction x 20 4# ea B P Standing Hip Flexion x 20 4# ea B, marches P Standing Hip extension x 20 4# ea B P Standing HS Curls x 20 4# ea B P Mini Squats 2 x10 reps BOSU Lunges x 20 reps ea leg SLS on airex in // bars 3 x 10 sec hold ea leg Shuttle Leg Press 2 x 10 reps B/L / U/L 75#/40# Sports Cord 1 cord Fwd/Backward only x 5 reps ea (spot closely) //bars: X today tandem gait x2 laps side steps x2 laps DC to HEP: Seated marches 2 x 10 X Seated hip abd blue band 2 x 10 reps X seated hip add squeezing fists 2 x 10 reps play ball X Seated Heel to toe raises x 10 reps (X) Seated LAQ 2 x 10 reps, 3# ea X Seated HS curls blue band 2 x 10 reps X . Provided today: education . Edu on proper form and speed of movement with ex's. Pt verbalized/demonstrated good understanding. 'Scores and Scales' Signatures Electronically signed by : Michele Castrejon, PT; Oct 08 2022 2:24PM EST (Author) [facility] Tobacco Screening.on 023 Fall risk assessment a) No falls within the last year BR-[id number]-U [employer] Work Phone: Tobacco use status [facility] b) No TS-Wvxonkg-Y [employer] Work Phone: Tobacco Screening. Yes MP-Uro logy-A [employer] Work Phone: PT Progress Noteon 3 PT Progress Note Therapy Diagnosis Assessed Pain (780.96) (R52) Transient right leg weakness (729.89) (R29.898) Plan Goals: Goals set and discussed today. LTG's: 1) Improve LE strength from 4/5 to >= 5-/5 throughout in order to facilitate safe gait and mobility. 4-6 wks 2) Improve Static/Dynamic Standing balance to >= Good (-) against perturbations and reaching outside REJI in order to improve safety with mobility. 4-6 wks 3) Improve Carranza Balance Test score from a 47 to >= 52/56 in order to improve safety with mobility. 4-6 wks 4) Improve LFES score by >= 5 points in order to improve QOL. 4-6 wks 5) Pt will be able to walk longer distances, negotiate stairs and return to exercise, and work around the home without significant limitation. 4-[address]) Pt/caregiver will be I and consistent with HEP with use of handout as needed in order to maximize strength and flexibility. 2-3 wks Planned interventions include: education/instruction, home program, neuromuscular re-education and therapeutic exercises. Frequency and duration: 2 time(s) a week, for 4 weeks, for 9 visits. Potential to achieve rehab goals is good Continue strengthening, ROM, flexibility, balance, and gait to improve functional mobility. Progress with POC, as tolerated. Assessment Good form with ex's today with minimal cueing needed. Pt challenged with ex's with increased rep count today. No pain with ex's reported. Response to treatment: improved strength and improved balance. Adult Risk Screening There are no spiritual/cultural practices/values/needs that are important to know Initial Fall Risk Screening: ALLI has not fallen in the last 6 months. His fall did not result in injury. ALLI does not have a fear of falling. He does not need assistance with sitting, standing or walking. Does not need assistance walking in his home. He does not need assistance in an unfamiliar setting. The patient is not using an assistive device. Fall Risk Screening: Patient is identified as a fall risk. Care Plan: Low Risk: Environmental for all patients and low risk patients: Offer assistance as needed or requested, keep environment free of obstacles, keep floor clean and dry, keep room lighting, wheelchair brakes on, bed/ stretcher locked and in low position if applicable, non-slip footwear if applicable, walker/cane available if needed, side rails up if applicable and pre-emptive toileting. Pain Scale: On a scale of 0 to 10, the patient rates the pain at 0. Please identify location of pain: R LE Pain is not a major issue for pt. Pain Quality: aching. The pain makes it hard for the patient to do these things: walking, exercise and house work. Living Will. Living Will: Living will on file. Healthcare POA: Health care proxy on file. Declaration of Mental Health Treatment: No mental health treatment on file. Depression/Suicide Screening: During the past 2 weeks, the patient has not felt down, depressed or hopeless. During the past 2 weeks, the patient has not felt little interest or pleasure in doing things. Insurance Insurance reviewed Visit number: 6 Subjective Patient reports:. Pt reports that he is doing well this morning. No new c/o's or complications. Home program performing as directed: Yes. Precautions: Fall Risk: low PMH: DM, Stroke, HTN, migraines, B/l THR, lumbar spine fusion. Treatment Time in clinic started at 9:30 am Time in clinic ended at 10:10 am Total time in clinic is 40 minutes. Total timed code time is 39 minutes. Therapeutic exercise (83187): timed minutes 39, units 3 . Stepper, Lv 1.5, x7 mins Slant Board x2 30 ea B Standing Heel raises on step 2 x 15 reps Anterior and Lateral Step ups, 6 2 x 10 ea B Standing Hip Abduction x 20 3# ea B Standing Hip Flexion x 20 3# ea B, marches Standing Hip extension x 20 3# ea B Standing HS Curls x 20 3# ea B Mini Squats 2 x10 reps BOSU Lunges x 20 reps ea leg N SLS on airex in // bars 3 x 10 sec hold ea leg Shuttle Leg Press 2 x 10 reps B/L / U/L 75#/40# Sports Cord 1 cord Fwd/Backward only x 5 reps ea (spot closely) //bars: X today tandem gait x2 laps side steps x2 laps DC to HEP: Seated marches 2 x 10 X Seated hip abd blue band 2 x 10 reps X seated hip add squeezing fists 2 x 10 reps play ball X Seated Heel to toe raises x 10 reps (X) Seated LAQ 2 x 10 reps, 3# ea X Seated HS curls blue band 2 x 10 reps X . Provided today: education . Edu on proper form and speed of movement with ex's. Pt verbalized/demonstrated good understanding. 'Scores and Scales' Signatures Electronically signed by : Michele Castrejon, PT; Oct 06 2022 10:09AM EST (Author) Normal [facility] PT Progress Noteon 3 PT Progress Note Therapy Diagnosis Assessed Pain (780.96) (R52) Transient right leg weakness (729.89) (R29.898) Plan Goals: Goals set and discussed today. LTG's: 1) Improve LE strength from 4/5 to >= 5-/5 throughout in order to facilitate safe gait and mobility. 4-6 wks 2) Improve Static/Dynamic Standing balance to >= Good (-) against perturbations and reaching outside REJI in order to improve safety with mobility. 4-6 wks 3) Improve Carranza Balance Test score from a 47 to >= 52/56 in order to improve safety with mobility. 4-6 wks 4) Improve LFES score by >= 5 points in order to improve QOL. 4-6 wks 5) Pt will be able to walk longer distances, negotiate stairs and return to exercise, and work around the home without significant limitation. 4-[address]) Pt/caregiver will be I and consistent with HEP with use of handout as needed in order to maximize strength and flexibility. 2-3 wks Planned interventions include: education/instruction, home program, neuromuscular re-education and therapeutic exercises. Frequency and duration: 2 time(s) a week, for 4 weeks, for 9 visits. Potential to achieve rehab goals is good Continue strengthening, ROM, flexibility, balance, and gait to improve functional mobility. Progress with POC, as tolerated. Assessment Good tolerance to ex's performed with minimal cues needed for form. Pt is challenged with ex's performed. LE strength and balance is slowly improving with treatment. Response to treatment: improved strength and improved balance. Adult Risk Screening There are no spiritual/cultural practices/values/needs that are important to know Initial Fall Risk Screening: ALLI has not fallen in the last 6 months. His fall did not result in injury. ALLI does not have a fear of falling. He does not need assistance with sitting, standing or walking. Does not need assistance walking in his home. He does not need assistance in an unfamiliar setting. The patient is not using an assistive device. Fall Risk Screening: Patient is identified as a fall risk. Care Plan: Low Risk: Environmental for all patients and low risk patients: Offer assistance as needed or requested, keep environment free of obstacles, keep floor clean and dry, keep room lighting, wheelchair brakes on, bed/ stretcher locked and in low position if applicable, non-slip footwear if applicable, walker/cane available if needed, side rails up if applicable and pre-emptive toileting. Pain Scale: On a scale of 0 to 10, the patient rates the pain at 0. Please identify location of pain: R LE Pain is not a major issue for pt. Pain Quality: aching. The pain makes it hard for the patient to do these things: walking, exercise and house work. Living Will. Living Will: Living will on file. Healthcare POA: Health care proxy on file. Declaration of Mental Health Treatment: No mental health treatment on file. Depression/Suicide Screening: During the past 2 weeks, the patient has not felt down, depressed or hopeless. During the past 2 weeks, the patient has not felt little interest or pleasure in doing things. Insurance Insurance reviewed Visit number: 5 Subjective Patient reports:. Pt reports that he is doing well so far today. Pt reports that he feels LE strength is slowly improving. Home program performing as directed: Yes. Precautions: Fall Risk: low PMH: DM, Stroke, HTN, migraines, B/l THR, lumbar spine fusion. Treatment Time in clinic started at 9:15 am Time in clinic ended at 9:55 am Total time in clinic is 40 minutes. Total timed code time is 39 minutes. Therapeutic exercise (98045): timed minutes 39, units 3 . Stepper, Lv 1.5, x7 mins Slant Board x2 30 ea B Standing Heel raises on step 2 x 15 reps Anterior and Lateral Step ups, 6 2 x 10 ea B P Standing Hip Abduction x 20 3# ea B P Standing Hip Flexion x 20 3# ea B, marches P Standing Hip extension x 20 3# ea B P Standing HS Curls x 20 3# ea B P Mini Squats 2 x10 reps SLS on airex in // bars 3 x 10 sec hold ea leg N Shuttle Leg Press 2 x 10 reps B/L / U/L 75#/25# N Sports Cord 1 cord Fwd/Backward only x 5 reps ea (spot closely) //bars: X today tandem gait x2 laps side steps x2 laps DC to HEP: Seated marches 2 x 10 X Seated hip abd blue band 2 x 10 reps X seated hip add squeezing fists 2 x 10 reps play ball X Seated Heel to toe raises x 10 reps (X) Seated LAQ 2 x 10 reps, 3# ea X Seated HS curls blue band 2 x 10 reps X . Provided today: education . Edu on proper form and speed of movement with ex's. Pt verbalized/demonstrated good understanding. 'Scores and Scales' Signatures Electronically signed by : Michele Castrejon, PT; Oct 01 2022 9:55AM EST (Author) Normal [facility] PT Progress Noteon 3 PT Progress Note Therapy Diagnosis Assessed Pain (780.96) (R52) Transient right leg weakness (729.89) (R29.898) Plan Goals: Goals set and discussed today. LTG's: 1) Improve LE strength from 4/5 to >= 5-/5 throughout in order to facilitate safe gait and mobility. 4-6 wks 2) Improve Static/Dynamic Standing balance to >= Good (-) against perturbations and reaching outside REJI in order to improve safety with mobility. 4-6 wks 3) Improve Carranza Balance Test score from a 47 to >= 52/56 in order to improve safety with mobility. 4-6 wks 4) Improve LFES score by >= 5 points in order to improve QOL. 4-6 wks 5) Pt will be able to walk longer distances, negotiate stairs and return to exercise, and work around the home without significant limitation. 4-[address]) Pt/caregiver will be I and consistent with HEP with use of handout as needed in order to maximize strength and flexibility. 2-3 wks Planned interventions include: education/instruction, home program, neuromuscular re-education and therapeutic exercises. Frequency and duration: 2 time(s) a week, for 4 weeks, for 9 visits. Potential to achieve rehab goals is good Continue strengthening, ROM, flexibility, balance, and gait to improve functional mobility. Progress with POC, as tolerated. Assessment Good form and tolerance to ex's performed today without significant pain increase. Minimal cueing needed occasionally for form. Pt was challenged with new/progressed ex's today. Response to treatment: improved strength and improved flexibility. Patient was able to complete today's treatment with some difficulty. Adult Risk Screening There are no spiritual/cultural practices/values/needs that are important to know Initial Fall Risk Screening: ALLI has not fallen in the last 6 months. His fall did not result in injury. ALLI does not have a fear of falling. He does not need assistance with sitting, standing or walking. Does not need assistance walking in his home. He does not need assistance in an unfamiliar setting. The patient is not using an assistive device. Fall Risk Screening: Patient is identified as a fall risk. Care Plan: Low Risk: Environmental for all patients and low risk patients: Offer assistance as needed or requested, keep environment free of obstacles, keep floor clean and dry, keep room lighting, wheelchair brakes on, bed/ stretcher locked and in low position if applicable, non-slip footwear if applicable, walker/cane available if needed, side rails up if applicable and pre-emptive toileting. Pain Scale: On a scale of 0 to 10, the patient rates the pain at 1. Please identify location of pain: R LE Pain is not a major issue for pt. Pain Quality: aching. The pain makes it hard for the patient to do these things: walking, exercise and house work. Living Will. Living Will: Living will on file. Healthcare POA: Health care proxy on file. Declaration of Mental Health Treatment: No mental health treatment on file. Depression/Suicide Screening: During the past 2 weeks, the patient has not felt down, depressed or hopeless. During the past 2 weeks, the patient has not felt little interest or pleasure in doing things. Insurance Insurance reviewed Visit number: 4 Subjective Patient reports:. Pt reports that he is feeling good overall today and that he is doing his ex's as able at home. Home program performing as directed: Yes. Precautions: Fall Risk: low PMH: DM, Stroke, HTN, migraines, B/l THR, lumbar spine fusion. Treatment Time in clinic started at 10:00 am Time in clinic ended at 10:41 am Total time in clinic is 41 minutes. Total timed code time is 40 minutes. Therapeutic exercise ([id number]): timed minutes 40, units 3 . Stepper, Lv 1.5, x7 mins Slant Board x2 30 ea B Step ups, 6 2 x 10 Standing Hip Abduction x 15 3# ea B P Standing Hip Flexion x 15 3# ea B, marches P Standing Hip extension x 15 3# ea B P Standing HS Curls x 15 3# ea B N Mini Squats 2 x10 reps N Shuttle Leg Press 2 x 10 reps B/L / U/L 75#/25# N Standing Heel raises on step 2 x 15 reps P Sports Cord 1 cord Fwd/Backward only x 5 reps ea (spot closely) N //bars: X today tandem gait x2 laps side steps x2 laps DC to HEP: Seated marches 2 x 10 X Seated hip abd blue band 2 x 10 reps X seated hip add squeezing fists 2 x 10 reps play ball X Seated Heel to toe raises x 10 reps (X) Seated LAQ 2 x 10 reps, 3# ea X Seated HS curls blue band 2 x 10 reps X . Provided today: education . Edu on proper form and speed of movement with ex's. Pt verbalized/demonstrated good understanding. 'Scores and Scales' Signatures Electronically signed by : Michele Castrejon, PT; Sep 29 2022 10:58AM EST (Author) Normal [facility] PT Progress Noteon 3 PT Progress Note Therapy Diagnosis Assessed Pain (780.96) (R52) Transient right leg weakness (729.89) (R29.898) Plan Goals: Goals set and discussed today. LTG's: 1) Improve LE strength from 4/5 to >= 5-/5 throughout in order to facilitate safe gait and mobility. 4-6 wks 2) Improve Static/Dynamic Standing balance to >= Good (-) against perturbations and reaching outside REJI in order to improve safety with mobility. 4-6 wks 3) Improve Carranza Balance Test score from a 47 to >= 52/56 in order to improve safety with mobility. 4-6 wks 4) Improve LFES score by >= 5 points in order to improve QOL. 4-6 wks 5) Pt will be able to walk longer distances, negotiate stairs and return to exercise, and work around the home without significant limitation. 4-[address]) Pt/caregiver will be I and consistent with HEP with use of handout as needed in order to maximize strength and flexibility. 2-3 wks Planned interventions include: education/instruction, home program, neuromuscular re-education and therapeutic exercises. Frequency and duration: 2 time(s) a week, for 4 weeks, for 9 visits. Potential to achieve rehab goals is good Continue strengthening, ROM, flexibility, balance, and gait to improve functional mobility. Assessment Advancing ther-ex as indicated to continue strength progression. Patient very motivated to improve strength and be able to walk better. He demonstrates goal progression. Response to treatment: no change in pain and improved knowledge and understanding of condition. Patient was able to complete today's treatment with some difficulty. Adult Risk Screening There are no spiritual/cultural practices/values/needs that are important to know Initial Fall Risk Screening: ALLI has not fallen in the last 6 months. His fall did not result in injury. ALLI does not have a fear of falling. He does not need assistance with sitting, standing or walking. Does not need assistance walking in his home. He does not need assistance in an unfamiliar setting. The patient is not using an assistive device. Fall Risk Screening: Patient is identified as a fall risk. Care Plan: Low Risk: Environmental for all patients and low risk patients: Offer assistance as needed or requested, keep environment free of obstacles, keep floor clean and dry, keep room lighting, wheelchair brakes on, bed/ stretcher locked and in low position if applicable, non-slip footwear if applicable, walker/cane available if needed, side rails up if applicable and pre-emptive toileting. Please identify location of pain: R LE Pain is not a major issue for pt. Pain Quality: aching. The pain makes it hard for the patient to do these things: walking, exercise and house work. Living Will. Living Will: Living will on file. Healthcare POA: Health care proxy on file. Declaration of Mental Health Treatment: No mental health treatment on file. Depression/Suicide Screening: During the past 2 weeks, the patient has not felt down, depressed or hopeless. During the past 2 weeks, the patient has not felt little interest or pleasure in doing things. Insurance Insurance reviewed Visit number: 3 Subjective Patient reports:. Muscle soreness after the last session but feeling pretty good this morning. Precautions: Fall Risk: low PMH: DM, Stroke, HTN, migraines, B/l THR, lumbar spine fusion. Treatment Time in clinic started at 0917 Time in clinic ended at 1000 Total time in clinic is 43 minutes. Total timed code time is 40 minutes. Therapeutic exercise (26426): timed minutes 40, units 3 . Stepper, Lv 1.5, x7 mins [P] Slant Board x2 30 ea B Step ups, 6 2 x 10 [P] Standing HR's 2 x 10 Standing Hip Abduction 2 x 10 ea B Standing Hip Flexion 2 x 10 ea B, marches Standing Hip extension 2 x 10 ea B //bars: tandem gait x2 laps (X) side steps x2 laps (X) Seated marches 2 x 10 Seated hip abd blue band 2 x 10 reps seated hip add squeezing fists 2 x 10 reps play ball Seated Heel to toe raises x 10 reps (X) Seated LAQ 2 x 10 reps, 3# ea (P) Seated HS curls blue band 2 x 10 reps . 'Scores and Scales' Signatures Electronically signed by : Gilbert Hirsch [employer]; Sep 24 2022 11:13AM EST (Author) Electronically signed by : Michele Castrejon PT; Sep 24 2022 5:06PM EST [facility] PT Progress Noteon 3 PT Progress Note Therapy Diagnosis Assessed Pain (780.96) (R52) Transient right leg weakness (729.89) (R29.898) Plan Goals: Goals set and discussed today. LTG's: 1) Improve LE strength from 4/5 to >= 5-/5 throughout in order to facilitate safe gait and mobility. 4-6 wks 2) Improve Static/Dynamic Standing balance to >= Good (-) against perturbations and reaching outside REJI in order to improve safety with mobility. 4-6 wks 3) Improve Carranza Balance Test score from a 47 to >= 52/56 in order to improve safety with mobility. 4-6 wks 4) Improve LFES score by >= 5 points in order to improve QOL. 4-6 wks 5) Pt will be able to walk longer distances, negotiate stairs and return to exercise, and work around the home without significant limitation. 4-[address]) Pt/caregiver will be I and consistent with HEP with use of handout as needed in order to maximize strength and flexibility. 2-3 wks Planned interventions include: education/instruction, home program, neuromuscular re-education and therapeutic exercises. Frequency and duration: 2 time(s) a week, for 4 weeks, for 9 visits. Potential to achieve rehab goals is good Continue strengthening, ROM, flexibility, balance, and gait to improve functional mobility. Assessment Fair tolerance with TE which patient tolerated increased reps with exercises. Added standing TE with B UE support needed. Standing rest breaks needed, declined to sit down. Verbal cues needed with left LE with gait to not ER foot. Response to treatment: decreased pain. Patient was able to complete today's treatment with some difficulty. Adult Risk Screening There are no spiritual/cultural practices/values/needs that are important to know Initial Fall Risk Screening: ALLI has not fallen in the last 6 months. His fall did not result in injury. ALLI does not have a fear of falling. He does not need assistance with sitting, standing or walking. Does not need assistance walking in his home. He does not need assistance in an unfamiliar setting. The patient is not using an assistive device. Fall Risk Screening: Patient is identified as a fall risk. Care Plan: Low Risk: Environmental for all patients and low risk patients: Offer assistance as needed or requested, keep environment free of obstacles, keep floor clean and dry, keep room lighting, wheelchair brakes on, bed/ stretcher locked and in low position if applicable, non-slip footwear if applicable, walker/cane available if needed, side rails up if applicable and pre-emptive toileting. Please identify location of pain: R LE Pain is not a major issue for pt. Pain Quality: aching. The pain makes it hard for the patient to do these things: walking, exercise and house work. Living Will. Living Will: Living will on file. Healthcare POA: Health care proxy on file. Declaration of Mental Health Treatment: No mental health treatment on file. Depression/Suicide Screening: During the past 2 weeks, the patient has not felt down, depressed or hopeless. During the past 2 weeks, the patient has not felt little interest or pleasure in doing things. Insurance Insurance reviewed Visit number: 2 Subjective Patient reports:. Pt. c/o 07/15 sx.'s with low back. Pt. states right foot is sore. Precautions: Fall Risk: low PMH: DM, Stroke, HTN, migraines, B/l THR, lumbar spine fusion. Treatment Time in clinic started at 9:15 am Time in clinic ended at 9:57 am Total time in clinic is 42 minutes. Total timed code time is 39 minutes. Therapeutic exercise (35101): timed minutes 39, units 3 . Stepper, Lv 1 x5 mins (N) Slant Board x2 30 ea B (N) Step ups, 4 2 x 10 (N) Standing HR's 2 x 10 (N) Standing Hip Abduction 2 x 10 ea B (N) Standing Hip Flexion 2 x 10 ea B (N) Standing Hip extension 2 x 10 ea B (N) //bars: tandem gait x2 laps (N) side steps x2 laps (N) Seated marches 2 x 10 (P) Seated hip abd blue band 2 x 10 reps (P) Seated hip add squeezing fists 2 x 10 reps (P) play ball Seated Heel to toe raises x 10 reps (X) Seated LAQ 2 x 10 reps (P) Seated HS curls blue band 2 x 10 reps (P) . 'Scores and Scales' Signatures Electronically signed by : Deya Dasilva [employer]; Sep 22 2022 9:58AM EST (Author) Electronically signed by : Michele Castrejon PT; Sep 23 2022 4:38PM EST Normal [facility] BD MRI PROSTATEon 09-19-2022 BD MRI PROSTATE Patient Name: ALLI THOMPSON STUDY: MRI PROSTATE; 09/19/2022 5:45 pm INDICATION: Elevated PSA of 5.14 on 08/2022, increased from 4.4 on 02/2022. COMPARISON: CT abdomen pelvis 09/20/2018 ACCESSION NUMBER(S): [id number] ORDERING CLINICIAN: ALLI ORONA TECHNIQUE: Multiplanar MRI of the pelvis was obtained including axial, sagittal and coronal T2 weighted SSFSE, axial and sagittal T2 FSE, axial DWI, pre and post gadolinium dynamic T1 GRE sequences. Multiparametric analysis was performed. 107 milliliter DOTAREM GADOTERATE MEGLUMINE INJECTION was administered intravenously without immediate complications. FINDINGS: PROSTATE VOLUME: The prostate measures 6.6 cm x 5.7 cm x 10.0 cm in aowgy-pe-gcfr, anterior-posterior and craniocaudal dimension. Prostate weight is estimated at 197g. PSA density is 0.03 ng/mL/g. PROSTATE PARENCHYMA: The diffusion-weighted and ADC sequences are markedly degraded by artifact due to the patient's bilateral hip arthroplasties, and near nondiagnostic. There is a 1.4 x 1.2 cm in the right apical anterior peripheral zone demonstrating hypointense nodular T2 signal with early focal enhancement on DCE consistent with a PI-RADS 4 lesion according to alternative scoring criteria from PI-RADS guidelines v2.1. There is heterogeneous enlargement of the transition zone, consistent with benign prostatic hyperplasia. A large median lobe extends into the urinary bladder. EXTRACAPSULAR EXTENSION: None. SEMINAL VESICLES: Within normal limits. PELVIC LYMPH NODES: No abnormally enlarged pelvic lymph nodes are identified. PERITONEUM: No free or loculated fluid collections are evident in the pelvis. OTHER ORGANS: The urinary bladder is thick-walled and contains multiple diverticuli, consistent with chronic outlet obstruction. There is a left inguinal hernia which contains loops of large bowel that extend into the left hemiscrotum. BONES: No focal lesions are noted in the bone. IMPRESSION: 1. Limited study due to artifact from bilateral hip arthroplasties. The DWI and ADC sequences are nondiagnostic. 2. PI-RADS 4 lesion in the right apical anterior peripheral zone, 1.4 x 1.2 cm. 3. Left inguinal hernia which contains large bowel. No signs of obstruction. I personally reviewed the images/study and I agree with the findings as stated by resident physician Dr. Dae Hinds. Electronically signed by: DENNISE DWYER MD Normal [facility] MRI Prostateon 09-19-2022 MRI Prostate Please click on the link to view the study images [facility] Work Phone: MRI Prostate Normal [facility] Work Phone: PT Initial Evaluationon 09-03 PT Initial Evaluation Therapy Diagnosis Assessed Transient right leg weakness (729.89) (R29.898) Pain (780.96) (R52) Plan of Care Goals: Goals set and discussed today. LTG's: 1) Improve LE strength from 4/5 to >= 5-/5 throughout in order to facilitate safe gait and mobility. 4-6 wks 2) Improve Static/Dynamic Standing balance to >= Good (-) against perturbations and reaching outside REJI in order to improve safety with mobility. 4-6 wks 3) Improve Carranza Balance Test score from a 47 to >= 52/56 in order to improve safety with mobility. 4-6 wks 4) Improve LFES score by >= 5 points in order to improve QOL. 4-6 wks 5) Pt will be able to walk longer distances, negotiate stairs and return to exercise, and work around the home without significant limitation. 4-[address]) Pt/caregiver will be I and consistent with HEP with use of handout as needed in order to maximize strength and flexibility. 2-3 wks Planned interventions include: education/instruction, home program, neuromuscular re-education and therapeutic exercises. Frequency and duration: 2 time(s) a week, for 4 weeks, for 9 visits. Potential to achieve rehab goals is good Plan of care was developed with input and agreement by the patient. Assessment The pt presents with Medical Dx of Weakness of R LE, Pain. Pt presents with the following deficits: increased pain, decreased strength, ROM, flexibility, balance, gait and functional mobility. Pt would benefit from PT services in order to improve on these deficits and to maximize strength and ability for functional activity/mobility. Clinical Presentation: Evolving with changing characteristics. Level of Complexity: low Problem List: activity limitations, ADLs/IADLs/self care skills, balance, decreased knowledge of HEP, fall risk, flexibility, gait/locomotion, range of motion/joint mobility and strength. Reason For Visit Initial Evaluation. Referred by: Dr. Sanchez Adult Risk Screening Initial Fall Risk Screening: ALLI has not fallen in the last 6 months. His fall did not result in injury. ALLI does not have a fear of falling. He does not need assistance with sitting, standing or walking. Does not need assistance walking in his home. He does not need assistance in an unfamiliar setting. The patient is not using an assistive device. Fall Risk Screening: Patient is identified as a fall risk. Care Plan: Low Risk: Environmental for all patients and low risk patients: Offer assistance as needed or requested, keep environment free of obstacles, keep floor clean and dry, keep room lighting, wheelchair brakes on, bed/ stretcher locked and in low position if applicable, non-slip footwear if applicable, walker/cane available if needed, side rails up if applicable and pre-emptive toileting. Pain Scale: On a scale of 0 to 10, the patient rates the pain at 1. Please identify location of pain: R LE Pain is not a major issue for pt. Pain Quality: aching. The pain makes it hard for the patient to do these things: walking, exercise and house work. Living Will. Living Will: Living will on file. Healthcare POA: Health care proxy on file. Declaration of Mental Health Treatment: No mental health treatment on file. Depression/Suicide Screening: During the past 2 weeks, the patient has not felt down, depressed or hopeless. During the past 2 weeks, the patient has not felt little interest or pleasure in doing things. Insurance Insurance reviewed Visit number: 1 [employer] [facility] Ins: Med Necessity. Follow Medicare Guidelines Dx: Weakness of R LE R29.898, Pain R 52 Evaluating PT: Jose Enrique Castrejon Subjective Current Episode of Functional Impairment and/or Pain Date of onset: 09/22/2021 Mechanism of Injury:. Pt reports that he had a stroke in 2019 with some residual R LE weakness but reports that his strength seems to have declined along with his balance over the last year. The pt reports that he does also have some R hip/leg leg pain or numbness that comes and goes. The pt reports that pain is not a major issue for him but that his primary concern for coming for PT is his R LE strength deficits and balance deficits. The pt reports that walking longer distances, stair negotiation and lifting or carrying objects are difficult due to R LE weakness and balance problems. Precautions: Fall Risk: low PMH: DM, Stroke, HTN, migraines, B/l THR, lumbar spine fusion. Functional Assessment Prior level of function: Pt is I with all ADL's and IADL's prior. Functional limitations: walking , participation in leisure activities , participation in home management , lifting and stairs . Patient stated goal(s) for treatment include: increasing strength . improve balance. Work Status: retired. Current Status: unchanged. Patient Awareness: Patient is aware of his diagnosis and prognosis. Living Environment: reviewed and no concern. Social Support: lives with spouse. Personal Factors That May Impact Care:. none. Yellow Flags:. none. Objective (more content not included)... [facility] Office Visit (Urology)on Follow-up visit Diagnoses/Problems Assessed BPH (benign prostatic hyperplasia) (600.00) (N40.0) Elevated PSA (790.93) (R97.20) Nocturia (788.43) (R35.1) Never a smoker Patient Discussion/Summary All available PSA values reviewed, Options discussed. Questions answered. Pros and cons of prostate biopsy reviewed. Other options discussed. Questions answered Discussed MRI-ordered Diet changes for prostate health discussed and educational information given. Pros/Cons of prostate health supplements discussed. Treatment options for LUTS reviewed Continue Proscar Treatment options for ED reviewed. Lifestyle change to help prevent UTIs discussed. Encouraged fluid intake. KUB reviewed Stone prevention discussed. Diet reviewed. Discussed fluid intake Referral made to Gen Surg for L IH F/U Virtual after MRI Chief Complaint 6 mo w/ psa and kub History of Present IllnessPatient is here for elevated PSA and groin discomfort since April... He feels there is a bulge in his left groin that goes down when he lies down or pushes on it. . Most recent PSA was 5.14 on 08/28.On Finasteride since 04/26. Prior PSA was 4.40 on 02/24. (He did stop finasteride on 10/25) . Prior PSA was 2.23 on 08/27. Prior PSA was 0.99 on 08/26. Hx of kidney stones. No recent sx. Denies flank pain. Denies N/V and F/C. Chronic BPH sx are mild and stable. SOme urgency and frequency. Denies dysuria. Denies hematuria. Nocturia x4-5. He did recently start back on Finasteride. He was given Uroxatral last visit but D/C this due to not seeing improvement. ED is chronic. No medication for this. Review of Systems Constitutional: No fever, No chills. Eye: glasses Ear/Nose/Mouth/Throat: Negative. Respiratory: No shortness of breath, No cough. Cardiovascular: No chest pain, No peripheral edema. Gastrointestinal: No nausea, Genitourinary: Negative except as documented in history of present illness. Hematology/Lymphatics: Patient denies being on blood thinners.. Endocrine: Negative. Immunologic: Not immunocompromised. Musculoskeletal: Negative Integumentary: Negative. Neurologic: Alert and oriented X4. Psychiatric: Negative. Active Problems Problems Allergic dermatitis (692.9) (L23.9) Bilateral renal stones (592.0) (N20.0) BPH (benign prostatic hyperplasia) (600.00) (N40.0) Chronic lower back pain (724.2,338.29) (M54.50,G89.29) Chronic migraine with aura (346.00) (G43.109) Class 1 obesity with body mass index (BMI) of 34.0 to 34.9 in adult (278.00,V85.34) (E66.9,Z68.34) Cutaneous skin tags (701.9) (L91.8) CVA (cerebrovascular accident) (434.91) (I63.9) DDD (degenerative disc disease), lumbosacral (722.52) (M51.37) DM2 (diabetes mellitus, type 2) (250.00) (E11.9) Dysuria (788.1) (R30.0) EKG abnormalities (794.31) (R94.31) Elevated PSA (790.93) (R97.20) Encounter for immunization (V03.89) (Z23) Encounter for screening for other disorder (V82.89) (Z13.89) 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) HTN (hypertension), benign (401.1) (I10) Hypertriglyceridemia (272.1) (E78.1) Kidney stones (592.0) (N20.0) LBBB (left bundle branch block) (426.3) (I44.7) Lumbar spinal stenosis (724.02) (M48.061) Mild cardiomegaly (429.3) (I51.7) 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) Nocturia (788.43) (R35.1) Osteoarthritis (715.90) (M19.90) Right hemiparesis (342.90) (G81.91) Right shoulder pain (719.41) (M25.511) Skin tag (701.9) (L91.8) Spinal stenosis, multilevel (724.00) (M48.00) Tinnitus (388.30) (H93.19) Vitamin B12 deficiency (266.2) (E53.8) Wellness examination (V70.0) (Z00.00) Surgical History Problems History of Hip replacement History of Tonsillectomy Family History Mother Family history of chronic obstructive pulmonary disease (V17.6) (Z82.5) Father Family history of cardiac pacemaker (V17.49) (Z82.49) Family history of myocardial infarction (V17.3) (Z82.49) Social History Problems Never a smoker No recent foreign travel Patient has living will (V49.89) (Z78.9) Allergies Medication No Known Drug Allergies Recorded By: Peggy Shea; 06/15/2019 6:04:42 PM Current Meds Medication NameInstruction Accu-Chek FastClix Lancetscheck blood sugar every mourning. amLODIPine Besylate 5 MG Oral TabletTAKE 1 TABLET DAILY. Aspirin EC Low Dose 81 MG Oral Tablet Delayed ReleaseTake 1 tablet daily Atorvastatin Calcium 40 MG Oral TabletTAKE 1 TABLET Bedtime Finasteride 5 MG Oral TabletTake 1 tablet daily FreeStyle Lite Test In Vitro StripTEST BLOOD SUGAR DAILY - FIRST THING IN THE MORNING BEFORE BREAKFAST Lisinopril 40 MG Oral TabletTake 1 tablet daily metFORMIN HCl - 500 MG Oral TabletTake 1 tablet twice daily Sulfamethoxazole-Trimetho prim 800-160 MG Oral TabletTake 1 tablet twice daily Triamterene-HCTZ 37.5-25 MG Oral TabletTAKE 1 TABLET DAILY. Vitamin B-12 1000 MCG Sublingual Tablet SublingualApply 1 tab beneath tongue once daily Vitals Vital Signs Re (more content not included)... Normal [facility] Tobacco Screening.on 023 Fall risk assessment a) No falls within the last year EC-[facility]sp[facility]wx[facility] Work Phone: Tobacco use status CPHS b) No BL-Ushjoji-[facility] Work Phone: Tobacco Screening. Yes MP-Uro logy-A [facility] Work Phone: ABDOMEN AP VIEWon 08-26-2022 ABDOMEN AP VIEW Patient Name: ALLI THOMPSON STUDY: ABDOMEN AP VIEW INDICATION: NONE N20.0: Kidney stones. COMPARISON: October 09, 2021 ACCESSION NUMBER(S): [id number] ORDERING CLINICIAN: ALLI ORONA FINDINGS: Bowel gas pattern unremarkable with nondilated large and small bowel loops. Some of the loops project into the left pelvis over the ischium which could suggest bowel loops within an inguinal hernia. Replacement and lumbar fusion changes are noted. No definite calculi seen. IMPRESSION: Bowel loops projecting into the left pelvis over the ischium which could suggest bowel loops within an inguinal hernia. Electronically signed by: GILES WINCHESTER MD [facility] Radiologyon 08-26-2022 XR Abdomen AP Please click on the link to view the study images Normal RR-Sjhkspz-A [facility] Work Phone: XR Abdomen AP Normal -Urology- R [facility] 232 DO Work Phone: Hemoglobin A1Con 08-25-2022 Glucose [Mass/Vol] 117 mg/dL [facility] Work Phone: [phone] HbA1c (Bld) [Mass fraction] 5.7 % Abnormal [facility] Work Phone: Comment on above: Diagnosis of Diabete s-Adults Non-Diabetic: < or = 5.6% Increased risk for developing diabetes: 5.7-6.4% Diagnostic of diabetes: > or = 6.5%. Monitoring of Diabetes Age (y) Therapeutic Goal (%) Adults: >18 <7.0 Pediatrics: 13-18 <7.5 7-12 <8.0 0- 6 7.5-8.5 [employer]. Diabetes Care 33(S1), Jul 2009. Laboratory - Chemistry and C hemistry - challengeon 08-25-2022 Anion gap [Moles/Vol] 10 mmol/L 10 - 20 [facility] Work Phone: Calcium [Mass/Vol] 9.7 mg/dL 8.6 - 10.3 [facility] Work Phone: Chloride [Moles/Vol] 103 mmol/L 98 - 107 [facility] Work Phone: CO2 [Moles/Vol] 29 mmol/L 21 - 32 [facility] Work Phone: Creatinine [Mass/Vol] 0.75 mg/dL See Below [facility] Work Phone: Comment on above: Reference Range: 0.5 0 - 1.30 Glucose [Mass/Vol] 101 mg/dL above high threshold 74 - 99 [facility] Work Phone: Potassium [Moles/Vol] 3.9 mmol/L 3.5 - 5.3 [facility] Work Phone: Sodium [Moles/Vol] 138 mmol/L 136 - 145 [facility] Work Phone: Urea nitrogen [Mass/Vol] 11 mg/dL 6 - 23 [facility] Work Phone: Albumin Ql (U) 160.3 mg/L See Below [facility] Work Phone: Comment on above: Reference Range: Not Established Albumin/Creatinine DL <= 20 mg/L (U) [Mass ratio] 215.7 {ug/mg_crt} above high threshold 0.0 - 30.0 [facility] Work Phone: Creatinine (U) [Mass/Vol] 74.3 mg/dL See Below [facility] Work Phone: Comment on above: Reference Range: 20. 0 - 370.0 No Panel Informationon 08-25 >90 >90 [facility] Work Phone: Comment on above: CALCULATIONS OF CRESENCIO MATED GFR ARE PERFORMED USING THE 2020 CKD-EPI STUDY REFIT EQUATION WITHOUT THE RACE VARIABLE FOR THE IDMS-TRACEABLE CREATININE METHODS.https://jasn.asnjournals.org/content/early// N.7536648666 Prostate Specific Antigenon 08-25-2022 Prostate specific Ag [Mass/Vol] 5.14 ng/mL above high threshold See Below CO-Srlzbxm-P [facility] Work Phone: Comment on above: Reference Range: 0.0 0 - 4.00The FDA requires that the method used for PSA assay be reported to the physician. Values obtained with different assay methods must not be used interchangeably. This testwas [facility] using the [employer] PSA assay is a two-site immunoenzymatic sandwich assay. The assay is approved for measurement of prostate-specific antigen (PSA)in serum and may be used in conjunction with a digital rectal examination in men 50 years and older as an aid in detection of prostate cancer.9-Aztjd-egitrlzxs inhibitors (e.g. Proscar, Finasteride, Avodart, Dutasteride and Tere) for the treatment of BPH have been shown to lower PSA levels by an average of 50% after 6 months of treatment. [facility] Follow-up visit Orders HTN (hypertension), benign Renew: Triamterene-HCTZ 37.5-25 MG Oral Tablet (Maxzide-25); TAKE 1 TABLET DAILY Chief Complaint pt c/o left lower groin burning pain, x 3 weeks, pt has increased stomach acid. History of Present Illness Patient is here for med check. Suprapubic pain and tenderness: Started about 3 weeks ago. Has intermittent pain. Started after excessive stretch while working. Initially had a bruise. Bruise has resolved. Pain continued to persist. Plan: Appears to be muscular in nature. Recommended conservative measures for now. If worsening then consider further evaluation. GERD: Reports that GERD used to be intermittent in the past. More frequent episodes now. Plan: Discussed about conservative measures including dietary changes. Can use Prilosec if symptoms are not improving. Diabetes mellitus: Patient reports that he has been watching his diet and has been working on being physically active. denies polyuria, polydipsia or blurry vision. He has been taking metformin 500 mg twice daily instead of 1000 mg twice daily. Plan: A1C has signficantly improved now with A1C at 6.1 down from 6.8. Continue current regimen for now. HTN: BP elevated in the clinic today. However, home BP is normal per patient report. He reports that his his urinary frequency has been worse lately. He has taken finasteride in the past. However he has taken a break in the middle. Now he is taking it again as his PSA levels are increasing and his urinary frequency has been worse. Is wondering if hydrochlorothiazide is contributing to the urinary frequency. Also it has been challenging for him to cut the 10 mg amlodipine tablet. So he has been taking it every other day. Plan: Given that there is a possibility of hydrochlorothiazide contributing to the urinary frequency we will discontinue hydrochlorothiazide part of his medication. We will continue with triamterene. If insurance issues occur then will go back to his previous regimen. Prescribing 5 mg amlodipine tablets so that he can take it every day. Stroke: Mostly recovered well. His right lower extremity is strong now . his memory is at baseline as well. Obesity: loosing weight with diet management. Has lost about 60 lbs. He is happy about this. he will continue to work on this. This is likely helping his diabetes as well. Discussed results with patient. Normal cholesterol levels, electrolytes, liver and kidney function. Follow up in 6 months, with labs before appointment. Review of Systems ROS negative except discussed above in HPI. Active Problems Allergic dermatitis (692.9) (L23.9) Bilateral renal stones (592.0) (N20.0) BPH (benign prostatic hyperplasia) (600.00) (N40.0) Chronic lower back pain (724.2,338.29) (M54.50,G89.29) Chronic migraine with aura (346.00) (G43.109) Class 1 obesity with body mass index (BMI) of 34.0 to 34.9 in adult (278.00,V85.34) (E66.9,Z68.34) Cutaneous skin tags (701.9) (L91.8) CVA (cerebrovascular accident) (434.91) (I63.9) DDD (degenerative disc disease), lumbosacral (722.52) (M51.37) DM2 (diabetes mellitus, type 2) (250.00) (E11.9) Dysuria (788.1) (R30.0) EKG abnormalities (794.31) (R94.31) Elevated PSA (790.93) (R97.20) Encounter for immunization (V03.89) (Z23) Encounter for screening for other disorder (V82.89) (Z13.89) 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) HTN (hypertension), benign (401.1) (I10) Hypertriglyceridemia (272.1) (E78.1) Kidney stones (592.0) (N20.0) LBBB (left bundle branch block) (426.3) (I44.7) Lumbar spinal stenosis (724.02) (M48.061) Mild cardiomegaly (429.3) (I51.7) 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) Nocturia (788.43) (R35.1) Osteoarthritis (715.90) (M19.90) Right hemiparesis (342.90) (G81.91) Right shoulder pain (719.41) (M25.511) Skin tag (701.9) (L91.8) Spinal stenosis, multilevel (724.00) (M48.00) Tinnitus (388.30) (H93.19) Vitamin B12 deficiency (266.2) (E53.8) Wellness examination (V70.0) (Z00.00) Surgical History History of Hip replacement History of Tonsillectomy Family History Family history of chronic obstructive pulmonary disease (V17.6) (Z82.5) Family history of cardiac pacemaker (V17.49) (Z82.49) Family history of myocardial infarction (V17.3) (Z82.49) Social History Never a smoker No recent foreign travel Patient has living will (V49.89) (Z78.9) Allergies No Known Drug Allergies Recorded By: Peggy Shea; 06/15/2019 6:04:42 PM Current Meds Medication NameInstructionReason Finasteride 5 MG Oral TabletTake 1 tablet dailyBPH (benign prostatic hyperplasia) amLODIPine Besylate 5 MG Oral TabletTAKE 1 TABLET DAILY.Chronic migraine with aura Atorvastatin Calcium 40 MG Oral TabletTAKE 1 TABLET BedtimeCVA (cerebrovascular accident) Accu-Chek FastClix Lancetscheck blood sugar every mourning.DM2 (diabetes mellitus, type 2) FreeStyle Lite Test In Vitro StripTEST BLOOD SUGAR DAILY - FIRST THING IN THE MORNING BE (more content not included)... Normal [facility] Tobacco Screening.on Tobacco use status [facility] b) No [facility] Work Phone: Laboratory - Chemistry and C hemistry - challengeon 04-07-2022 Potassium [Moles/Vol] 4.3 mmol/L 3.5 - 5.3 [facility] Work Phone: Tobacco Screening.on Adult depression screening assessment No -Urology- R [facility] 232 DO Work Phone: Fall risk assessment a) No falls within the last year GW-Ebthvju-E [facility] 232 DO Work Phone: Tobacco use status [facility] b) No EU-Fvujrif-V [facility] 232 DO Work Phone: Tobacco Screening.on Adult depression screening assessment No [facility] Work Phone: Fall risk assessment a) No falls within the last year [facility] Work Phone: Tobacco use status [facility] b) No [facility] Work Phone: Hemoglobin A1Con 02-21-2022 Glucose [Mass/Vol] 128 mg/dL [facility] Work Phone: HbA1c (Bld) [Mass fraction] 6.1 % Abnormal [facility] Work Phone: Comment on above: Diagnosis of Diabete s-Adults Non-Diabetic: < or = 5.6% Increased risk for developing diabetes: 5.7-6.4% Diagnostic of diabetes: > or = 6.5%. Monitoring of Diabetes Age (y) Therapeutic Goal (%) Adults: >18 <7.0 Pediatrics: 13-18 <7.5 7-12 <8.0 0- 6 7.5-8.5 [employer]. Diabetes Care 33(S1), Jul 2009. Laboratory - Chemistry and C hemistry - challengeon 02-21-2022 Albumin BCP dye [Mass/Vol] 4.3 g/dL 3.4 - 5.0 [facility] Work Phone: ALP [Catalytic activity/Vol] 59 U/L 33 - 136 [facility] Work Phone: ALT With P-5'-P [Catalytic activity/Vol] 18 U/L 10 - 52 [facility] Work Phone: Comment on above: Patients treated wit h Sulfasalazine may generate falsely decreased results for ALT. Anion gap [Moles/Vol] 12 mmol/L 10 - 20 [facility] Work Phone: AST With P-5'-P [Catalytic activity/Vol] 17 U/L 9 - 39 [facility] Work Phone: Bilirubin [Mass/Vol] 0.7 mg/dL 0.0 - 1.2 [facility] Work Phone: Calcium [Mass/Vol] 9.9 mg/dL 8.6 - 10.3 [facility] Work Phone: Chloride [Moles/Vol] 104 mmol/L 98 - 107 [facility] Work Phone: CO2 [Moles/Vol] 26 mmol/L 21 - 32 [facility] Work Phone: Creatinine [Mass/Vol] 0.81 mg/dL See Below [facility] Work Phone: Comment on above: Reference Range: 0.5 0 - 1.30 Glucose [Mass/Vol] 114 mg/dL above high threshold 74 - 99 [facility] Work Phone: Potassium [Moles/Vol] 3.7 mmol/L 3.5 - 5.3 [facility] Work Phone: Protein [Mass/Vol] 6.8 g/dL 6.4 - 8.2 [facility] Work Phone: Sodium [Moles/Vol] 138 mmol/L 136 - 145 [facility] Work Phone: Urea nitrogen [Mass/Vol] 12 mg/dL 6 - 23 [facility] Work Phone: Lipid Panelon 02-21-2022 Cholesterol [Mass/Vol] 89 mg/dL 0 - 199 [facility] Work Phone: Comment on above: . AGE DESIRABLE BORD PASCUAL HIGH HIGH 0-19 Y 0 - 169 170 - 199 >/= 200 20-24 Y 0 - 189 190 - 224 >/= 225 >24 Y 0 - 199 200 - 239 >/= 240 All ranges are based on fasting samples. Specific therapeutic targets will vary based on patient-specific cardiac risk.. Pediatric guidelines reference:Pediatrics 2011, 128(S5). Adult guidelines reference: NCEP ATPIII Guidelines, EMRE 2001, 258:2486-97. Venipuncture immediately after or during the administration of Metamizole may lead to falsely low results. Testing should be performed immediately prior to Metamizole dosing. Cholesterol in HDL [Mass/Vol] 39.0 mg/dL Abnormal [facility] Work Phone: Comment on above: . AGE VERY LOW LOW N ORMAL HIGH 0-19 Y < 35 < 40 40-45 ---- 20- 24 Y ---- < 40 >45 ---- >24 Y ---- < 40 40-60 >60. Cholesterol in LDL [Mass/Vol] 33 mg/dL 0 - 99 [facility] Work Phone: Comment on above: . NEAR BORD AGE GISELLE RABLE OPTIMAL HIGH HIGH VERY HIGH 0-19 Y 0 - 109 --- 110-129 >/= 130 ---- 20-24 Y 0 - 119 --- 120-159 >/= 160 ---- >24 Y 0 - 99 100-129 130-159 160-189 >/=190. Cholesterol.total/Cho lesterol in HDL [Mass ratio] 2.3 {ratio} [facility] Work Phone: Comment on above: REF VALUESDESIRABLE < 3.4HIGH RISK > 5.0 Triglyceride [Mass/Vol] 85 mg/dL 0 - 149 [facility] Work Phone: Comment on above: . AGE DESIRABLE BORD PASCUAL HIGH HIGH VERY HIGH 0 D-90 D 19 - 174 ---- ---- ----91 D- 9 Y 0 - 74 75 - 99 >/= 100 ---- 10-19 Y 0 - 89 90 - 129 >/= 130 ---- 20-24 Y 0 - 114 115 - 149 >/= 150 ---- >24 Y 0 - 149 150 - 199 200- 499 >/= 500. Venipuncture immediately after or during the administration of Metamizole may lead to falsely low results. Testing should be performed immediately prior to Metamizole dosing. Lipid Panel 17 mg/dL 0 - 40 [facility] Work Phone: No Panel Informationon 02-21 >90 >90 [facility] Work Phone: Comment on above: CALCULATIONS OF CRESENCIO MATED GFR ARE PERFORMED USING THE 2020 CKD-EPI STUDY REFIT EQUATION WITHOUT THE RACE VARIABLE FOR THE IDMS-TRACEABLE CREATININE METHODS.https://jasn.asnjournals.org/content/early/ N.6626223716 Prostate Specific Antigenon 02-21-2022 Prostate specific Ag [Mass/Vol] 4.40 ng/mL above high threshold See Below II-Trwmulp[facility]I [facility] Work Phone: Comment on above: Reference Range: 0.0 0 - 4.00The FDA requires that the method used for PSA assay be reported to the physician. Values obtained with different assay methods must not be used interchangeably. This testwas performed at [facility] using the [employer] PSA assay is a two-site immunoenzymatic sandwich assay. The assay is approved for measurement of prostate-specific antigen (PSA)in serum and may be used in conjunction with a digital rectal examination in men 50 years and older as an aid in detection of prostate cancer.0-Oqati-chkwkzbmt inhibitors (e.g. Proscar, Finasteride, Avodart, Dutasteride and Tere) for the treatment of BPH have been shown to lower PSA levels by an average of 50% after 6 months of treatment. ULTRASOUND SOFT TISSUE HEAD AND NECKon 01-22-2022 ULTRASOUND SOFT TISSUE HEAD AND NECK Patient Name: LALI THOMPSON STUDY: SOFT TISS H/N; ; 01/22/2022 1:40 pm INDICATION: CHRONIC SIALOADENITIS US SUBMANDIBULAR GLAND. COMPARISON: None. ACCESSION NUMBER(S): [id number] ORDERING CLINICIAN: HARI VALLES TECHNIQUE: Both sides of the neck were examined with the ultrasound. Grayscale and color images were obtained and have been submitted for analysis. FINDINGS: Both sides of the neck were scanned and do not show any lymphadenopathy at levels 1A, 1B and 2A on either side. The left submandibular salivary gland is normal in echogenicity and size. There is in homogeneous echogenicity in the right submandibular gland compatible with the sialadenitis. No focal mass lesion is seen. No calcification is identified. IMPRESSION: Ultrasound findings compatible with right submandibular sialadenitis. If this does not improve then imaging may be obtained with CT scanning. Electronically signed by: VINOD JAVIER MD [facility] Tobacco Screening.on 022 Fall risk assessment a) No falls within the last year [facility] Work Phone: Tobacco use status [facility] b) No [facility] Work Phone: Hemoglobin A1Con 11-21-2021 Glucose [Mass/Vol] 148 mg/dL [facility] Work Phone: HbA1c (Bld) [Mass fraction] 6.8 % Abnormal [facility] Work Phone: Comment on above: Diagnosis of Diabete s-Adults Non-Diabetic: < or = 5.6% Increased risk for developing diabetes: 5.7-6.4% Diagnostic of diabetes: > or = 6.5%. Monitoring of Diabetes Age (y) Therapeutic Goal (%) Adults: >18 <7.0 Pediatrics: 13-18 <7.5 7-12 <8.0 0- 6 7.5-8.5 [employer]. Diabetes Care 33(S1), Jul 2009. IO UA (automated w/o microsc opy)on 10-09-2021 Protein (U) [Mass/Vol] Negative DH-Kpkhepj-Q [facility] Work Phone: IO UA (automated w/o microscopy) (+)small - 15 UL-Bzsakfw-P [facility] Work Phone: IO UA (automated w/o microscopy) Negative TR-Hllkhrp-C [facility] Work Phone: IO UA (automated w/o microscopy) Normal DH-Kkiynaz-J [facility] Work Phone: IO UA (automated w/o microscopy) 5.5 1 DX-Mzsweeq-A [facility] Work Phone: IO UA (automated w/o microscopy) 1.025 1 GJ-Jvwcffz-A [facility] Work Phone: IO UA (automated w/o microscopy) Clear QW-Qxyoxeg-P [facility] Work Phone: IO UA (automated w/o microscopy) Yellow DE-Hpdzubp-X [facility] Work Phone: Radiologyon 10-09-2021 XR Abdomen AP Please click on the link to view the study images Normal HC-Vntfslv-U [facility] Work Phone: XR Abdomen AP Normal MP-Urology- R [facility] HC 232 DO Work Phone: Tobacco Screening.on 022 Fall risk assessment a) No falls within the last year FG-Uejypzv-W [facility] Work Phone: Tobacco use status [facility] b) No QR-Axlnubo-H [facility] Work Phone: Tobacco Screening.on 022 Fall risk assessment a) No falls within the last year [facility] Work Phone: Tobacco use status [facility] b) No [facility] Work Phone: Hemoglobin A1Con 08-19-2021 Glucose [Mass/Vol] 174 mg/dL [facility] Work Phone: HbA1c (Bld) [Mass fraction] 7.7 % Abnormal [facility] Work Phone: Comment on above: Diagnosis of Diabete s-Adults Non-Diabetic: < or = 5.6% Increased risk for developing diabetes: 5.7-6.4% Diagnostic of diabetes: > or = 6.5%. Monitoring of Diabetes Age (y) Therapeutic Goal (%) Adults: >18 <7.0 Pediatrics: 13-18 <7.5 7-12 <8.0 0- 6 7.5-8.5 [employer]. Diabetes Care 33(S1), Jul 2009. Prostate Specific Antigenon 08-19-2021 Prostate specific Ag [Mass/Vol] 2.23 ng/mL See Below FJ-Qghckxo[facility]T [facility] Work Phone: Comment on above: Reference Range: 0.0 0 - 4.00The FDA requires that the method used for PSA assay be reported to the physician. Values obtained with different assay methods must not be used interchangeably. This testwas performed at [facility] using the Access [employer] PSA assay is a two-site immunoenzymatic sandwich assay. The assay is approved for measurement of prostate-specific antigen (PSA)in serum and may be used in conjunction with a digital rectal examination in men 50 years and older as an aid in detection of prostate cancer.0-Kwmra-seiecfjdu inhibitors (e.g. Proscar, Finasteride, Avodart, Dutasteride and Tere) for the treatment of BPH have been shown to lower PSA levels by an average of 50% after 6 months of treatment. Tobacco Screening.on Fall risk assessment a) No falls within the last year [facility] Work Phone: Tobacco use status [facility] b) No [facility] Work Phone: Hemoglobin A1Con 03-04-2021 Glucose [Mass/Vol] 160 mg/dL [facility] Work Phone: HbA1c (Bld) [Mass fraction] 7.2 % Abnormal [facility] Work Phone: Comment on above: Diagnosis of Diabete s-Adults Non-Diabetic: < or = 5.6% Increased risk for developing diabetes: 5.7-6.4% Diagnostic of diabetes: > or = 6.5%. Monitoring of Diabetes Age (y) Therapeutic Goal (%) Adults: >18 <7.0 Pediatrics: 13-18 <7.5 7-12 <8.0 0- 6 7.5-8.5 [employer]. Diabetes Care 33(S1), Jul 2009. Tobacco Screening.on 021 Fall risk assessment a) No falls within the last year [facility] Work Phone: Tobacco Screening. b) No [facility] Work Phone: Hemoglobin A1Con 11-29-2020 Glucose [Mass/Vol] 160 mg/dL [facility] Work Phone: HbA1c (Bld) [Mass fraction] 7.2 % [facility] Work Phone: Comment on above: Diagnosis of Diabete s-Adults Non-Diabetic: < or = 5.6% Increased risk for developing diabetes: 5.7-6.4% Diagnostic of diabetes: > or = 6.5%. Monitoring of Diabetes Age (y) Therapeutic Goal (%) Adults: >18 <7.0 Pediatrics: 13-18 <7.5 7-12 <8.0 0- 6 7.5-8.5 [employer]. Diabetes Care 33(S1), Jul 2009. Metabolic Panelon 12-22-2019 Glucose [Mass/Vol] 85 mg/dL 74 - 99 [facility] Work Phone: Comment on above: Ordering Provider: Angela GREER 06248 Glucose [Mass/Vol] 115 mg/dL above high threshold 74 - 99 [facility] Work Phone: Comment on above: Ordering Provider: Angela GREER 23924 Glucose [Mass/Vol] 125 mg/dL above high threshold 74 - 99 [facility] Work Phone: Comment on above: Ordering Provider: Angela VINNY GREER 02268 Otheron 12-22-2019 US.doppler Carotid arteries [id number] [address] [place], [place] [address]Phone ext-[phone], Bboyxbpp Lab ReportCarotid Artery Duplex UltrasoundPatient Name: ALLI THOMPSON Reading Physician: [id number] Esperanza Ness MDStudy Date: 12/22/2019 Referring Physician: [id number] Greer MDMRN/PID: [id number] PCP:Accession/Order#: [id number] CC Report to:Date of : 1950 Technologist: Raven Garnica RVTGender: Coleman Technologist 2:Admission Status: Inpatient [facility]: I67.9-Cerebrovascular disease, unspecifiedIndication: CVAProcedure/CPT: 33480 Cerebrovacular Carotid Duplex scan complete-[id number] History: HTN and Hyperlipidemia. Diabetic.CONCLUSIONS:Righ t Carotid: Findings are consistent with less than 50% stenosis of the right proximal ICA. Laminar flow seen by color Doppler. Right external carotid artery appears patent with no evidence of stenosis. The right vertebral artery is patent with antegrade flow. No evidence of hemodynamically significant stenosis in the right subclavian.Left Carotid: Findings are consistent with less than 50% stenosis of the left proximal ICA. Laminar flow seen by color Doppler. Left external carotid artery appears patent with no evidence of stenosis. The left vertebral artery is patent with antegrade flow. No evidence of hemodynamically significant stenosis in the left subclavian.Imaging \T\ Doppler Findings:Right Plaque Morph: The proximal right internal carotid artery demonstrates calcified plaque.Left Plaque Morph: The proximal left internal carotid artery demonstrates calcified plaque.Right LeftPSV EDV PSV EDV62 cm/s 9 cm/s CCA P 72 cm/s 10 cm/s55 cm/s 12 cm/s CCA D 53 cm/s 12 cm/s33 cm/s 11 cm/s ICA P 51 cm/s 12 cm/s44 cm/s 17 cm/s ICA D 45 cm/s 14 cm/s79 cm/s ECA 101 cm/s43 cm/s 11 cm/s Vertebral 55 cm/s 10 cm/s152 cm/s Subclavian Proximal 168 cm/sRight LeftICA/CCA Ratio 0.6 [id number] Esperanza Ness MD Final [facility] Work Phone: Activated Partial Thrombopla stin Timeon 12-21-2019 aPTT Coag (PPP) [Time] 34 {sec} 25 - 35 [facility] Work Phone: Comment on above: Note new reference r dave as of 11/29/2019. THE APTT IS NO LONGER USED FOR MONITORING UNFRACTIONATED HEPARIN THERAPY. FOR MONITORING HEPARIN THERAPY, USE THE HEPARIN ASSAY. Ordering Provider: Dani CONTRERAS [id number] CT Brain Attack Head [facility] wo Contrast Interpreted by: RONAL OHARA12/21/19 10:18MRN: [id number] Name: ALLI THOMPSON STUDY:NR CT BRAIN ATTACK HEAD WO CONTRAST; 12/21/2019 10:06 am INDICATION:stroke r/o. COMPARISON:None. ORDERING CLINICIAN:MERON CONTRERAS TECHNIQUE:Noncontrast axial CT scan of head was performed. Angled reformats inbrain and bone windows were generated. The images were reviewed inbone, brain, blood and soft tissue windows. Sagittal and coronalreconstructions were acquired FINDINGS:BRAIN PARENCHYMA: Periventricular and subcortical white matterchanges are present. No masses are seen. No mass effect. No acutecortical infarct or mass effect is seen. HEMORRHAGE: There is no evidence for hemorrhage. VENTRICLES and EXTRA-AXIAL SPACES: The ventricles, sulci and cisternsare prominent suggesting volume loss. INTRACRANIAL VESSELS: Atherosclerotic calcification. EXTRACRANIAL SOFT TISSUES: Within normal limits. PARANASAL SINUSES/MASTOIDS: Within normal limits. CALVARIUM: No destructive lesion or depressed skull fracture. IMPRESSION:Diffuse volume loss and periventricular white matter changes, whichgiven patient's age likely represent small vessel ischemic disease. No CT evidence of acute hemorrhage or acute cortical infarct.Please note that acute ischemic changes may not be visualized on CTscan for 24-48 hours. MRI of the brain may be obtained as clinicallywarranted. The referring physician was notified at the time of the dictation.Electronically signed by: RONAL OHARA 12/21/19 10:18 Normal [facility] Work Phone: Comment on above: Ordering Provider: Dani CONTRERAS 44552 Complete Blood Count + Diffe michaela 12-21-2019 Basophils (Bld) [#/Vol] 0.00 {x10E9/L} See Below [facility] Work Phone: Comment on above: Reference Range: 0.0 0 - 0.10 Ordering Provider: Dani CONTRERAS 73608 Basophils/100 WBC (Bld) 0.6 % 0.0 - 2.0 [facility] Work Phone: Comment on above: Ordering Provider: Dani CONTRERAS 75046 Eosinophils (Bld) [#/Vol] 0.20 {x10E9/L} See Below [facility] Work Phone: Comment on above: Reference Range: 0.0 0 - 0.70 Ordering Provider: Dani CONTRERAS 27693 Eosinophils/100 WBC (Bld) 3.6 % 0.0 - 6.0 [facility] Work Phone: Comment on above: Ordering Provider: Dani CONTRERAS 23280 Erythrocyte distribution width (RBC) [Ratio] 13.8 % See Below [facility] Work Phone: Comment on above: Reference Range: 11. 5 - 14.5 Ordering Provider: Dani Szymanski Hematocrit (Bld) [Volume fraction] 45.5 % See Below [facility] Work Phone: Comment on above: Reference Range: 41. 0 - 52.0 Ordering Provider: Dani Szymanski Hemoglobin (Bld) [Mass/Vol] 15.3 g/dL See Below [facility] Work Phone: Comment on above: Reference Range: 13. 5 - 17.5 Ordering Provider: Dani Szymanski Lymphocytes (Bld) [#/Vol] 1.10 {x10E9/L} below low threshold See Below [facility] Work Phone: Comment on above: Reference Range: 1.2 0 - 4.80 Ordering Provider: Dani Szymanski Lymphocytes/100 WBC (Bld) 16.4 % See Below [facility] Work Phone: Comment on above: Reference Range: 13. 0 - 44.0 Ordering Provider: Dani Szymanski MCHC (RBC) [Mass/Vol] 33.7 g/dL See Below [facility] Work Phone: Comment on above: Reference Range: 32. 0 - 36.0 Ordering Provider: Dani Szymanski MCV (RBC) [Entitic vol] 94 fL 80 - 100 [facility] Work Phone: Comment on above: Ordering Provider: Dani CONTRERAS 25007 Monocytes (Bld) [#/Vol] 0.50 {x10E9/L} See Below [facility] Work Phone: Comment on above: Reference Range: 0.1 0 - 1.00 Ordering Provider: Dani Szymanski Monocytes/100 WBC (Bld) 7.2 % 2.0 - 10.0 [facility] Work Phone: Comment on above: Ordering Provider: Dani TABARESOLIVE 15712 Neutrophils (Bld) [#/Vol] 4.90 {x10E9/L} See Below [facility] Work Phone: Comment on above: Reference Range: 1.2 0 - 7.70 Percent differential counts (%) should be interpreted in the context of the absolute cell counts (cells/L). Ordering Provider: Dani CLYDEChevy BEN 69387 Neutrophils/100 WBC (Bld) 72.2 % See Below [facility] Work Phone: Comment on above: Reference Range: 40. 0 - 80.0 Ordering Provider: Dani CORIE TABARESRIDGE 07769 Platelets (Bld) [#/Vol] 189 {x10E9/L} 150 - 450 [facility] Work Phone: Comment on above: Ordering Provider: Dani CLYDEChevy BEN 35930 RBC (Bld) [#/Vol] 4.86 {x10E12/L} See Below [facility] Work Phone: Comment on above: Reference Range: 4.5 0 - 5.90 Ordering Provider: Dani CLYDEChevy TABARESRIDGE 07629 WBC (Bld) [#/Vol] 6.8 {x10E9/L} 4.4 - 11.3 [facility] Work Phone: Comment on above: Ordering Provider: Dani TABARESRIDGE 64236 WBC (Bld) [#/Vol] 0.1 {/100_WBC} [facility] Work Phone: Comment on above: Ordering Provider: Dani CORIE CONTRERAS 24016 Hematologyon 12-21-2019 INR Coag (PPP) [Relative time] 1.1 {INR} 0.9 - 1.1 [facility] Work Phone: Comment on above: Ordering Provider: Dani TABARESOLIVE 50152 PT Coag (PPP) [Time] 12.8 {sec} See Below [facility] Work Phone: Comment on above: Reference Range: 10. 1 - 13.3 Note new reference range as of 11/29/2019. Ordering Provider: Dani SPRING BEN 70315 Hepatic Function Panelon Albumin BCP dye [Mass/Vol] 4.2 g/dL 3.4 - 5.0 [facility] Work Phone: Comment on above: Ordering Provider: Dani SPRING BEN 95836 ALP [Catalytic activity/Vol] 54 U/L 33 - 136 [facility] Work Phone: Comment on above: Ordering Provider: Dani SPRING RAYSHAWNRIDGE 94441 ALT With P-5'-P [Catalytic activity/Vol] 22 U/L 10 - 52 [facility] Work Phone: Comment on above: Patients treated wit h Sulfasalazine may generate falsely decreased results for ALT. Ordering Provider: Dani SPRING RAYSHAWNRIDGE 87633 AST With P-5'-P [Catalytic activity/Vol] 19 U/L 9 - 39 [facility] Work Phone: Comment on above: Ordering Provider: Dani SPRING RAYSHAWNRIDGE 07195 Bilirubin [Mass/Vol] 0.6 mg/dL 0.0 - 1.2 [facility] Work Phone: Comment on above: Ordering Provider: Dani SPRING RAYSHAWNRIDGE 87031 Bilirubin.direct [Mass/Vol] 0.1 mg/dL 0.0 - 0.3 [facility] Work Phone: Comment on above: Ordering Provider: Dani TANGChevy TABARESRIDGE 35669 Protein [Mass/Vol] 6.7 g/dL 6.4 - 8.2 [facility] Work Phone: Comment on above: Ordering Provider: Dani CONTRERAS 91387 MRI Brain w/wo Contraston MR Brain WO and W contrast IV Interpreted by: LUIS FELIPE LÓPEZ12/21/19 16:35MRN: [id number] Name: ALLI THOMPSON STUDY:MRI BRAIN W/WO CONTRAST; 12/21/2019 4:24 pm INDICATION:neurologic deficits. COMPARISON:None. ORDERING CLINICIAN:MERON CONTRERAS TECHNIQUE:The brain was studied in the sagittal axial and coronal planesutilizing FLAIR, T1 and T2 weighted images FINDINGS:There is slight prominence of the cortical sulci and sylvianfissures. There is mild ventricular dilatation. There are a fewscattered foci of abnormal signal within the basal ganglia andsubcortical white matter bilaterally. These are compatible withminimal small vessel ischemic changes. These nonspecific findingscould also be produced by a demyelinating or post inflammatoryprocess. The visualized skull base paranasal sinuses and orbitalstructures are unremarkable. There is diffusion restriction in the clara to the left of midline itzel subcentimeter region best appreciated on diffusion axial 12/28.Findings consistent with acute pontine infarction asymmetrical to theleft. Gradient echo T2 weighted images fail to demonstratehemosiderin deposition or other evidence of hemorrhage. Following intravenous injection of 20 cc MultiHance there is noabnormal enhancement. IMPRESSION* Left pontine infarction* An [place] alert message was sent to the referring physician Dr.SARAH CONTRERAS through the [employer] system at 4:34 pm on 12/21/2019 byDr.Charles López THIS EXAMINATION WAS INTER[facility]TED [facility]ron[place] signed by: LUIS FELIPE LÓPEZ 12/21/19 16:35 Normal [facility] Work Phone: Comment on above: Ordering Provider: Dani CONTRERAS 60023 Metabolic Panelon 12-21-2019 Glucose [Mass/Vol] 111 mg/dL above high threshold 74 - 99 [facility] Work Phone: Comment on above: Ordering Provider: Angela GREER 25154 Anion gap [Moles/Vol] 12 mmol/L 10 - 20 [facility] Work Phone: Comment on above: Ordering Provider: Dani TABARESRIDGE 06439 Calcium [Mass/Vol] 9.6 mg/dL 8.6 - 10.3 [facility] Work Phone: Comment on above: Ordering Provider: Dani TANGChevy TABARESRIDGE 26794 Chloride [Moles/Vol] 105 mmol/L 98 - 107 [facility] Work Phone: Comment on above: Ordering Provider: Dani TANGChevy TABARESRIDGE 02944 CO2 [Moles/Vol] 26 mmol/L 21 - 32 [facility] Work Phone: Comment on above: Ordering Provider: Dani TANGChevy TABARESRIDGE 25962 Creatinine [Mass/Vol] 0.92 mg/dL See Below [facility] Work Phone: Comment on above: Reference Range: 0.5 0 - 1.30 Ordering Provider: Dani SPRING ASBRIDGE 01182 Glucose [Mass/Vol] 168 mg/dL above high threshold 74 - 99 [facility] Work Phone: Comment on above: Ordering Provider: Dani SPRING RAYSHAWNRIDGE 55228 Potassium [Moles/Vol] 3.8 mmol/L 3.5 - 5.3 [facility] Work Phone: Comment on above: Ordering Provider: Dani SPRING ASBRIDGE 58878 Sodium [Moles/Vol] 139 mmol/L 136 - 145 [facility] Work Phone: Comment on above: Ordering Provider: Dani ARAChevy ASBRIDGE 31255 Urea nitrogen [Mass/Vol] 13 mg/dL 6 - 23 [facility] Work Phone: Comment on above: Ordering Provider: S ARAChevy ASBRIDGE 98376 Glucose [Mass/Vol] 156 mg/dL above high threshold 74 - 99 [facility] Work Phone: Comment on above: Ordering Provider: Dani CONTRERAS 98428 Otheron 12-21-2019 NOT DETECTED See Below [facility] Work Phone: Comment on above: SOURCE: Nasal, Nasop haryngealReference Range: Not DetectedThis assay is designed to detect the ORF1ab and/or S genes of SARS-CoV-2 via nucleic acid amplification. A Not Detected result does not preclude 2019-nCoV infection since the adequacy of sample collection and/or low viral burden may result in presence of viral nucleic acids below the clinical sensitivity of this test method. Fact sheet for providers: www.[employer].gov/media/532197/downloadFact sheet for patients: www.[employer].gov/Shelfbucks/208698/downloadThis test has received FDA Emergency Use Authorization (EUA) and has been verified by [facility] ([facility]). This test is only authorized for the duration of time that circumstances exist to justify the authorization of the emergency use of in vitro diagnostic tests for the detection of SARS-CoV-2 virus and/or diagnosis of COVID-19 infection under section 564(b)(1) of the Act, 21 U.S.C. 360bbb-3(b)(1), unless the authorization is terminated or revoked sooner. [facility] is certified under CLIA-88 as qualified to perform high complexity testing. Testing is performed in the [facility] laboratories located at [address] [place] [address]. Ordering Provider: Dani CONTRERAS 85006 >60 >60 [facility] Work Phone: Comment on above: Ordering Provider: Dani CONTRERAS 17923 CALCULATIONS OF CRESENCIO MATED GFR ARE PERFORMED USING THE MDRD STUDY EQUATION FOR THE IDMS-TRACEABLE CREATININE METHODS. CLIN CHEM 2007;53:[id number] 65 1 [facility] Work Phone: Comment on above: Ordering Provider: Dani Contreras 79534 132 1 [facility] Work Phone: Comment on above: Ordering Provider: S corie Rob404 398 1 [facility] Work Phone: Comment on above: Ordering Provider: Dani corie Szymanski 413 1 [facility] Work Phone: Comment on above: Ordering Provider: Dani corie Rob404 45 1 [facility] Work Phone: Comment on above: Ordering Provider: Dani corie Rob404 -81 1 [facility] Work Phone: Comment on above: Ordering Provider: Dani corie Rob404 26 1 [facility] Work Phone: Comment on above: Ordering Provider: Dani corie Szymanski 224 1 [facility] Work Phone: Comment on above: Ordering Provider: Dani corie Szymanski 209 1 [facility] Work Phone: Comment on above: Ordering Provider: Dani corie Szymanski 84 1 [facility] Work Phone: Comment on above: Ordering Provider: Dani Rob404 136 1 [facility] Work Phone: Comment on above: Ordering Provider: Dani Rob404 408 1 [facility] Work Phone: Comment on above: Ordering Provider: Dani Contreras 26048 Please see physicia n note for formal interpretation confirmed by Scribe [facility] Work Phone: Comment on above: Ordering Provider: Dani Contreras 84530 [email or web address] ?[id number] [facility] Work Phone: Comment on above: Ordering Provider: Dani Rob404 11 1 [facility] Work Phone: Comment on above: Ordering Provider: Dani Szymanski Troponin I, Serumon 12-21-19 20 Troponin I.cardiac [Mass/Vol] ng/mL See Below [facility] Work Phone: Comment on above: Reference Range: 0.0 0 - 0.03LESS THAN 0.04 NG/ML: NEGATIVEREPEAT TESTING IN THREE TO SIX HOURSIF CLINICALLY INDICATED.0.04 - 0.5 NG/ML: CONSISTENT WITH POSSIBLECARDIAC DAMAGE AND POSSIBLE INCREASEDCLINICAL RISK.SERIAL MEASUREMENTS MAY HELP ASSESS EXTENT OFMYOCARDIAL DAMAGE.>0.5 NG/ML: CONSISTENT WITH CARDIAC DAMAGE,INCREASED CLINICAL RISK AND MYOCARDIALINFARCTION. SERIAL MEASUREMENTS MAY HELPASSESS EXTENT OF MYOCARDIAL DAMAGE..Note: Troponin I testing is performed using different testing methodology at [facility] than at other [facility]. Direct result comparisons should only be made within the same method. Ordering Provider: Dani Szymanski Urinalysison 12-21-2019 Appearance (U) HAZY CLEAR [facility] Work Phone: Comment on above: Ordering Provider: Dani Szymanski Color (U) Yellow See Below [facility] Work Phone: Comment on above: Reference Range: STR AW,YELLOW Ordering Provider: Dani CONTRERAS 45161 Glucose Ql (U) Negative NEGATIVE [facility] Work Phone: Comment on above: Ordering Provider: Dani CONTRERAS 05726 Ketones Ql (U) Negative NEGATIVE [facility] Work Phone: Comment on above: Ordering Provider: Dani Szymanski Leukocyte esterase Test strip Ql (U) Negative NEGATIVE [facility] Work Phone: Comment on above: Ordering Provider: Dani Szymanski pH (U) 5.0 [pH] 5.0 - 8.0 -[facility] Work Phone: Comment on above: Ordering Provider: Dani Szymanski Protein (U) [Mass/Vol] Negative NEGATIVE -[facility] Work Phone: Comment on above: Ordering Provider: Dani Szymanski RBC (U) [#/Vol] Negative NEGATIVE -[facility] Work Phone: Comment on above: Ordering Provider: Dani Szymanski Specific gravity (U) [Rel density] 1.024 1 See Below -[facility] Work Phone: Comment on above: Reference Range: 1.0 05 - 1.035 Ordering Provider: Dani Szymanski Urinalysis Negative NEGATIVE [facility] Work Phone: Comment on above: Ordering Provider: Dani Szymanski Urinalysis <2.0 0.0 - 1.9 -[facility] Work Phone: Comment on above: Ordering Provider: Dani Szymanski Auto Diffon 03-02-2019 Basophils (Bld) [#/Vol] 0.0 E3/mcL Normal 0.0-0.2 [facility] Comment on above: Order Comment: Order Added by Discern Expert. Performed By: #### 2 [id number] #### [facility] [place] [address] Basophils/100 WBC (Bld) 0.5 % Normal 0.0-2.0 [facility] Comment on above: Order Comment: Order Added by Discern Expert. Performed By: #### 2 [id number] #### [facility] [place] [address] Eos Absolute 0.3 E3/mcL Normal 0.0-0.7 [facility] Comment on above: Order Comment: Order Added by Discern Expert. Performed By: #### 2 [id number] #### [facility] [address] [place] [address] 85189 Eosinophils/100 WBC (Bld) 3.8 % Normal 0.0-11.0 [facility] Comment on above: Order Comment: Order Added by Discern Expert. Performed By: #### 2 [id number] #### [facility] [address] [place] [address] 00277 Lymphocytes (Bld) [#/Vol] 1.5 E3/mcL Normal 1.2-3.4 [facility] Comment on above: Order Comment: Order Added by Discern Expert. Performed By: #### 2 989168 #### [facility] [address] [place] [address] 59020 Lymphocytes/100 WBC (Bld) 21.7 % Normal 20.0-55.0 [facility] Comment on above: Order Comment: Order Added by Discern Expert. Performed By: #### 2 [id number] #### [facility] [address] [place] [address]335 [place] Absolute 0.4 E3/mcL Normal 0.0-0.7 [facility] Comment on above: Order Comment: Order Added by Discern Expert. Performed By: #### 2 843425 #### [facility] [address] [place] [address] 35711 Monocytes/100 WBC (Bld) 6.1 % Normal 0.0-10.0 [facility] Comment on above: Order Comment: Order Added by Discern Expert. Performed By: #### 2 [id number] #### [facility] [address] [place] [address] 08425 Neutro Absolute 4.8 E3/mcL Normal 1.4-6.5 [facility] Comment on above: Order Comment: Order Added by Discern Expert. Performed By: #### 2 635491 #### [facility] [address] [place] [address] 21820 Neutro Auto 67.9 % Normal 37.0-75.0 [facility] Comment on above: Order Comment: Order Added by Discern Expert. Performed By: #### 2 915656 #### [facility] [address] [place] [address] 89266 CBC w/ Auto Diffon 9 Erythrocyte distribution width (RBC) [Ratio] 13.9 % Normal 11.5-14.5 [facility] Comment on above: Performed By: #### 2 532211 #### [facility] [address] [place] [address] 43140 Hematocrit (Bld) [Volume fraction] 42.8 % Normal 42.0-52.0 [facility] Comment on above: Performed By: #### 2 735176 #### [facility] [address] [place] [address] 14893 Hemoglobin (Bld) [Mass/Vol] 14.4 g/dL Normal 13.5-18.0 [facility] Comment on above: Performed By: #### 2 177999 #### [facility] [address] [place] [address] 81101 MCH (RBC) [Entitic mass] 31.5 pg High 27.0-31.0 [facility] Comment on above: Performed By: #### 2 771528 #### [facility] [address] [place] [address] 16493 MCHC (RBC) [Mass/Vol] 33.8 g/dL Normal 33.0-37.0 [facility] Comment on above: Performed By: #### 2 650235 #### [facility] [address] [place] [address] 11265 MCV (RBC) [Entitic vol] 93.1 fL Normal 78.0-100.0 [facility] Comment on above: Performed By: #### 2 287953 #### [facility] [address] [place] [address] 77294 Platelet mean volume (Bld) [Entitic vol] 7.5 fL Normal 7.4-11.0 [facility] Comment on above: Performed By: #### 2 088204 #### [facility] [address] [place] [address] 95379 Platelets (Bld) [#/Vol] 231 E3/mcL Normal 130-400 [facility] Comment on above: Performed By: #### 2 611480 #### [facility] [address] [place] [address] 76168 RBC (Bld) [#/Vol] 4.59 E6/mcL Normal 3.90-6.10 [facility] Comment on above: Performed By: #### 2 115757 #### [facility] [address] [place] [address] 04266 WBC (Bld) [#/Vol] 7.1 E3/mcL Normal 3.6-11.0 [facility] Comment on above: Performed By: #### 2 882422 #### [facility] [address] [place] [address] 77726 CMPon 03-02-2019 Albumin [Mass/Vol] 4.2 g/dL Normal 3.4-5.0 [facility] Comment on above: Performed By: #### 2 850516 #### [facility] [address] [place], [place] [address] Albumin/Globulin [Mass ratio] 1.7 {ratio} Normal 1.1-1.9 [facility] Comment on above: Performed By: #### 2 468894 #### [facility] [address] [place] [address] 80024 Alk Phos 56 Int._Unit/L Normal 33-136 [facility] Comment on above: Performed By: #### 2 127072 #### [facility] [address] [place] [address] 16954 ALT [Catalytic activity/Vol] 26 Int._Unit/L Normal 10-52 [facility] Comment on above: Performed By: #### 2 051803 #### [facility] [address] [place] [address] 58790 Anion gap [Moles/Vol] 10 mmol/L Normal 10-20 [facility] Comment on above: Performed By: #### 2 020454 #### [facility] [address] [place] [address] 71132 AST [Catalytic activity/Vol] 22 Int._Unit/L Normal 9-39 [facility] Comment on above: Performed By: #### 2 329930 #### [facility] [address] [place] [address] 42949 Bili Total 0.52 mg/dL Normal 0.00-1.20 [facility] Comment on above: Performed By: #### 2 444412 #### [facility] [place] [address] Calcium [Mass/Vol] 9.6 mg/dL Normal 8.6-10.3 [facility] Comment on above: Performed By: #### 2 388531 #### [facility] [place] [address] Chloride [Moles/Vol] 106 mmol/L Normal 98-107 [facility] Comment on above: Performed By: #### 2 703733 #### [facility] [place] [address] CO2 [Moles/Vol] 28.0 mmol/L Normal 21.0-32.0 [facility] Comment on above: Performed By: #### 2 066966 #### [facility] [place] [address] Creatinine [Mass/Vol] 1.0 mg/dL Normal 0.5-1.3 [facility] Comment on above: Performed By: #### 2 117004 #### [facility] [place] [address] Globulin (S) [Mass/Vol] 3.0 g/dL Normal 2.0-4.0 [facility] Comment on above: Performed By: #### 2 755671 #### [facility] [address] [place] [address] 80462 Glucose [Mass/Vol] 157 mg/dL High 70-99 [facility] Comment on above: Performed By: #### 2 506362 #### [facility] [address] [place] [address] 72797 Potassium [Moles/Vol] 4.0 mmol/L Normal 3.5-5.3 [facility] Comment on above: Performed By: #### 2 906318 #### [facility] [address] [place] [address] 14414 Protein [Mass/Vol] 6.7 g/dL Normal 6.4-8.2 [facility] Comment on above: Performed By: #### 2 973807 #### [facility] [place] [address] Sodium [Moles/Vol] 140 mmol/L Normal 136-145 [facility] Comment on above: Performed By: #### 2 331926 #### [facility] [address] [place] [address] 97271 Urea nitrogen [Mass/Vol] 16 mg/dL Normal 6-23 [facility] Comment on above: Performed By: #### 2 613578 #### [facility] [address] [place] [address] 54266 Urea nitrogen/Creatinine [Mass ratio] 16.0 ratio Normal 5.4-30.0 [facility] Comment on above: Performed By: #### 2 439729 #### [facility] [address] [place] [address] 17540 [id number] 03-02-2019 HbA1c (Bld) [Mass fraction] 6.8 % High 4.0-6.3 [facility] Comment on above: Performed By: #### 2 551034 #### [facility] [address] [place] [address] 48317 PSA Totalon 03-02-2019 PSA Total 0.88 ng/mL Normal [facility] Comment on above: Result Comment: AGE- SPECIFIC REFERENCE RANGES FOR SERUM PSA REFERENCE RANGE NG/ML AGE ASIANS BLACKS WHITE 40-49 0-2 0-2 0-2.5 50-59 0-3 0-4 0-3.5 60-69 0-4 0-4.5 0-4.5 70-79 0-5 0-5.5 0-6.5 PSA INCREASES WITH AGE, RACE, AND EJACULATION WITHIN 48 HRS. [facility] VOL24,NO.2, , PG.339 Performed By: #### 2 861157 #### [facility] [address] [place] [address] 04311 TSHon 03-02-2019 TSH Qn 1.57 mcIU/mL Normal 0.30-5.60 [facility] Comment on above: Performed By: #### 2 690550 #### [facility] [address] [place] [address] 80636 eGFRon 03-02-2019 GFR/1.73 sq M predicted among non-blacks MDRD (S/P/Bld) [Vol rate/Area] mL/min/{1.73_m2} Normal [facility] Comment on above: Order Comment: Order added by Discern Expert. Performed By: #### 2 [id number] #### [facility] [address] [place] [address] MRI Spine Lumbar w/o Contras ton 01-13-2019 MRI Spine Lumbar w/o Contrast Exam Date/Time: 01/13/2019 12:09 EDT Reason for Exam: LBP OTHER FORMS OF SCOLIOSIS LUMBAR REGION Report STUDY: MRI Spine Lumbar w/o Contrast; 01/13/2019 12:09 pm INDICATION: LBP OTHER FORMS OF SCOLIOSIS LUMBAR REGION. Left-sided back pain, lumbar fusion with hardware. COMPARISON: Preoperative examination 05/13/2017 ACCESSION NUMBER(S): [id number] ORDERING CLINICIAN: Maya Rogers TECHNIQUE: Sagittal T1, T2, STIR, axial T1 and T2 weighted images of the lumbar spine were acquired. FINDINGS: Alignment: There are 5 lumbar type vertebrae. L5 has slight retrolisthesis relative to S1. Slight retrolisthesis of L1 relative to L2, L2 relative to L3 and L3 relative to L4 present similar to the prior study. Bilateral pedicle screw/stewart fusion has been performed from L2 through L5 with metallic artifact obscuring portions of the spinal canal, lateral recesses and foramina bilaterally. Laminectomy has also been performed from L3-4 to L5-S1 with posterior bulging of the thecal sac into the laminectomy defect. Vertebrae/Intervertebral Discs: The vertebral bodies demonstrate expected height.Degenerative sclerotic changes in the marrow are noted at L1-2 adjacent to the disc space. The disc heights are decreased from T12-L1 through L4-5 similar to the prior exam. Conus: The lower thoracic cord appears unremarkable. The conus terminates at L1. T11-12: The right neural foramen is moderately stenosed by facet hypertrophy and disc bulge. Disc bulge does not reach the ventral aspect of the cord. T12-L1: Lateral recesses are minimally stenosed by disc bulge and facet hypertrophy with ligament thickening. L1-2: The lateral recesses are mildly to moderately stenosed with mild spinal canal stenosis secondary to ligament thickening and disc bulge. The neural foramina are mildly stenosed. L2-3: The lateral recesses are mildly stenosed by disc bulge and a retrolisthesis of L2. L3-4: The lateral recesses are mildly to moderately stenosed more so on the left by ligament thickening and facet hypertrophy. The disc bulges mildly. The neural foramina are mildly Exam Date/Time: 01/13/2019 12:09 EDT Report stenosed by endplate spurring more so on the left. The degrees of stenosis are significantly improved from the prior study. L4-5: Lateral recesses are mildly to moderately stenosed by disc bulge and facet hypertrophy. The neural foramina are also stenosed by endplate spurring and disc bulge. The degrees of stenosis are significantly improved from the prior study. L5-S1: The facet joints are severely arthritic worse on the left with moderate stenosis of the left and to a lesser degree right lateral recesses by facet hypertrophy and ligament thickening. The neural foramina are obscured by metallic artifact but appear moderately stenosed more so on the right. The prevertebral and posterior paraspinous soft tissues are unremarkable. IMPRESSION: Multilevel degenerative changes are present as noted; the degrees of stenosis at L3-4 and L4-5 are significantly improved from the previous study. FINAL REPORT Dictated: 01/13/2019 2:42 pm Jones Love MD Signed (Electronic Signature): 01/13/2019 2:42 pm Signed by: Jones Love MD Technologist: DC Normal [facility] C Urineon 09-22-2018 C Urine Final Report: No growth Normal S [facility] Comment on above: Performed By: #### 2 [id number] #### [facility] Rem[facility] [address] [place] [address] Auto Diffon 09-20-2018 Basophils (Bld) [#/Vol] 0.0 E3/mcL Normal 0.0-0.2 [facility] Comment on above: Order Comment: Order Added by Discern Expert. Performed By: #### 2 [id number] #### [facility] Rem[facility] [address] [place] [address] Basophils/100 WBC (Bld) 0.3 % Normal 0.0-2.0 [facility] Comment on above: Order Comment: Order Added by Discern Expert. Performed By: #### 2 963191 #### [facility] Rem[facility] [address] [place] [address] Eos Absolute 0.2 E3/mcL Normal 0.0-0.7 [facility] Comment on above: Order Comment: Order Added by Discern Expert. Performed By: #### 2 803219 #### [facility] [address] [place] [address] Eosinophils/100 WBC (Bld) 2.3 % Normal 0.0-11.0 [facility] Comment on above: Order Comment: Order Added by Discern Expert. Performed By: #### 2 357940 #### [facility] [address] [place] [address] 85918 Lymphocytes (Bld) [#/Vol] 1.1 E3/mcL Low 1.2-3.4 [facility] Comment on above: Order Comment: Order Added by Discern Expert. Performed By: #### 2 295037 #### [facility] [address] [place] [address] 16857 Lymphocytes/100 WBC (Bld) 13.0 % Low 20.0-55.0 [facility] Comment on above: Order Comment: Order Added by Discern Expert. Performed By: #### 2 110649 #### [facility] [address] [place] [address] [place] Absolute 0.5 E3/mcL Normal 0.0-0.7 [facility] Comment on above: Order Comment: Order Added by Discern Expert. Performed By: #### 2 562578 #### [facility] [address] [place] [address] Monocytes/100 WBC (Bld) 6.0 % Normal 0.0-10.0 [facility] Comment on above: Order Comment: Order Added by Discern Expert. Performed By: #### 2 786631 #### [facility] [address] [place] [address] Neutro Absolute 6.8 E3/mcL High 1.4-6.5 [facility] Comment on above: Order Comment: Order Added by Discern Expert. Performed By: #### 2 727569 #### [facility] [address] [place] [address] Neutro Auto 78.4 % High 37.0-75.0 [facility] Comment on above: Order Comment: Order Added by Discern Expert. Performed By: #### 2 466452 #### [facility] [address] [place] [address] CBC w/ Auto Diffon Erythrocyte distribution width (RBC) [Ratio] 14.5 % Normal 11.5-14.5 [facility] Comment on above: Performed By: #### 2 984785 #### [facility] [address] [place] [address] Hematocrit (Bld) [Volume fraction] 44.6 % Normal 42.0-52.0 [facility] Comment on above: Performed By: #### 2 637671 #### [facility] [address] [place] [address] Hemoglobin (Bld) [Mass/Vol] 15.0 g/dL Normal 13.5-18.0 [facility] Comment on above: Performed By: #### 2 761224 #### [facility] [address] [place] [address] MCH (RBC) [Entitic mass] 31.0 pg Normal 27.0-31.0 [facility] Comment on above: Performed By: #### 2 708053 #### [facility] [address] [place] [address] MCHC (RBC) [Mass/Vol] 33.6 g/dL Normal 33.0-37.0 [facility] Comment on above: Performed By: #### 2 [id number] #### [facility] Rem[facility]emo [address] [place] [address] MCV (RBC) [Entitic vol] 92.2 fL Normal 78.0-100.0 [facility] Comment on above: Performed By: #### 2 [id number] #### BENI RemHemo [address] [place] [address] Platelet mean volume (Bld) [Entitic vol] 7.0 fL Low 7.4-11.0 [facility] Comment on above: Performed By: #### 2 690186 #### BENI RemHemo [address] [place] [address] Platelets (Bld) [#/Vol] 218 E3/mcL Normal 130-400 [facility] Comment on above: Performed By: #### 2 [id number] #### BENI AnHemo [address] [place] [address] RBC (Bld) [#/Vol] 4.84 E6/mcL Normal 3.90-6.10 [facility] Comment on above: Performed By: #### 2 [id number] #### BENI RemHemo [address] [place] [address] WBC (Bld) [#/Vol] 8.6 E3/mcL Normal 3.6-11.0 [facility] Comment on above: Performed By: #### 2 372331 #### BENI AnHemo [address] [place] [address] CMPon 09-20-2018 Albumin [Mass/Vol] 4.5 g/dL Normal 3.4-5.0 [facility] Comment on above: Performed By: #### 2 989024 #### BENI AnHemo [address] [place] [address] Albumin/Globulin [Mass ratio] 1.7 {ratio} Normal 1.1-1.9 [facility] Comment on above: Performed By: #### 2 749092 #### BENI AnHemo [address] [place] [address] Alk Phos 55 Int._Unit/L Normal 33-136 [facility] Comment on above: Performed By: #### 2 743551 #### BENI RemHemo [address] [place] [address] ALT [Catalytic activity/Vol] 19 Int._Unit/L Normal 10-52 [facility] Comment on above: Performed By: #### 2 306541 #### BENI RemHemo [address] [place] [address] Anion gap [Moles/Vol] 12 mmol/L Normal 10-20 [facility] Comment on above: Performed By: #### 2 298717 #### BENI Leungo [address] [place] [address] AST [Catalytic activity/Vol] 18 Int._Unit/L Normal 9-39 [facility] Comment on above: Performed By: #### 2 425476 #### BENI Leungo [address] [place] [address] Bili Total 0.61 mg/dL Normal 0.00-1.20 [facility] Comment on above: Performed By: #### 2 063333 #### BENI AnHemo [address] [place] [address] Calcium [Mass/Vol] 10.0 mg/dL Normal 8.6-10.3 [facility] Comment on above: Performed By: #### 2 619667 #### BENI Leungo [address] [place] [address] Chloride [Moles/Vol] 103 mmol/L Normal 98-107 [facility] Comment on above: Performed By: #### 2 991943 #### BENI AnHemo [address] [place] [address] CO2 [Moles/Vol] 28.0 mmol/L Normal 21.0-32.0 [facility] Comment on above: Performed By: #### 2 439039 #### BENI AnHemo [address] [place] [address] Creatinine [Mass/Vol] 0.9 mg/dL Normal 0.5-1.3 [facility] Comment on above: Performed By: #### 2 674599 #### BENI AnHemo [address] [place] [address] Globulin (S) [Mass/Vol] 3.0 g/dL Normal 2.0-4.0 [facility] Comment on above: Performed By: #### 2 306253 #### BENI AnHemo [address] [place] [address] Glucose [Mass/Vol] 135 mg/dL High 70-99 [facility] Comment on above: Performed By: #### 2 610093 #### BENI AnHemo [address] [place] [address] Potassium [Moles/Vol] 3.9 mmol/L Normal 3.5-5.3 [facility] Comment on above: Performed By: #### 2 956128 #### BENI RemHemo [address] [place] [address] Protein [Mass/Vol] 7.1 g/dL Normal 6.4-8.2 [facility] Comment on above: Performed By: #### 2 482255 #### BENI RemHemo [address] [place] [address] Sodium [Moles/Vol] 139 mmol/L Normal 136-145 [facility] Comment on above: Performed By: #### 2 352281 #### BENI RemHemo [address] [place] [address] Urea nitrogen [Mass/Vol] 13 mg/dL Normal 6-23 [facility] Comment on above: Performed By: #### 2 633489 #### BENI RemHemo [address] [place] [address] Urea nitrogen/Creatinine [Mass ratio] 14.4 ratio Normal 5.4-30.0 [facility] Comment on above: Performed By: #### 2 796884 #### BENI RemHemo [address] [place] [address] CT Abdomen/Pelvis w/o Contra ston 09-20-2018 CT Abdomen/Pelvis w/o Contrast Exam Date/Time: 09/20/2018 14:04 EDT Reason for Exam: Pain Report STUDY: CT Abdomen/Pelvis w/o Contrast; 09/20/2018 2:04 pm INDICATION: Pain. COMPARISON: 10/29/2012 ACCESSION NUMBER(S): [id number] ORDERING CLINICIAN: Gurdeep Flores TECHNIQUE: Helical CT imaging of the abdomen and pelvis was performed without oral or intravenous contrast. FINDINGS: LOWER CHEST: The imaged lung bases are clear. The heart is normal in size. ABDOMEN: Evaluation of the solid organs is limited secondary to the lack of IV contrast. LIVER: Fatty infiltration the. Is normal in size contour. SPLEEN: Normal in size and contour. ADRENALS: Normal in size and contour. KIDNEYS and URETERS: No renal or ureteral calculi. There is no hydronephrosis or hydroureter. PANCREAS: Normal in size and contour. GALLBLADDER: Gallbladder is distended. There is a calcified stone near the neck of the gallbladder. BILE DUCTS: No intra or extrahepatic biliary ductal dilatation. BOWEL and ABDOMINAL WALL and LYMPH NODES: The stomach is unremarkable. The small bowel and colon are normal in course and caliber. The appendix is within normal limits. There is no intraabdominal free fluid or adenopathy by imaging size criteria. Bilateral fat containing inguinal. There is partial herniation of the distal descending colon into the left hernia. VESSELS: The unenhanced vessels are grossly unremarkable. PELVIS: REPRODUCTIVE ORGANS and BLADDER: Evaluation the pelvic organs is degraded by artifact from bilateral hip prosthesis. There are calcifications in the prostate. Seminal vesicles symmetric. There is no pelvic free fluid. The urinary bladder is partially obscured. There are diverticula near both UVJ. Exam Date/Time: 09/20/2018 14:04 EDT Report BONES: Posterior fixation of L2 through L5. Bilateral hip prosthesis. Degenerative changes throughout. No evidence of acute fracture. IMPRESSION: 1. Fatty infiltration of the liver. Gallstones. No intra or extrahepatic biliary ductal dilatation. 2. No renal calculi. No hydronephrosis. 3. No bowel obstruction. Normal appendix. No evidence of acute diverticulitis. 4. Bilateral inguinal hernias. There is extension the descending colon into the and extension of a segment of small bowel into the proximal aspect of the right hernia. No complete bowel herniation seen. FINAL REPORT Dictated: 09/20/2018 2:38 pm Araceli Aguero MD Signed (Electronic Signature): 09/20/2018 2:38 pm Signed by: Araceli Aguero MD Technologist: MM, Normal [facility] Lipase Levelon 09-20-2018 Lipase Lvl 32 Int._Unit/L Normal 9-82 [facility] Comment on above: Performed By: #### 2 570279 #### BENI RemHemo [address] [place] [id number] UA Completeon 09-20-2018 Color (U) Alyssia Abnormal Yellow [facility] Comment on above: Performed By: #### 2 031683 #### BENI RemHemo [address] [place] [address] Glucose (U) [Mass/Vol] Negative Normal Negative [facility] Comment on above: Performed By: #### 2 107304 #### BENI RemHemo [address] [place] [address] Ketones Ql (U) Negative Normal Negative [facility] Comment on above: Performed By: #### 2 266939 #### BENI RemHemo [address] [place] [address] UA Blood Negative Normal Negative [facility] Comment on above: Performed By: #### 2 405641 #### BENI RemHemo [address] [place] [address] UA Ascorbic Acid 40 mg/dL High <=19 [facility] Comment on above: Performed By: #### 2 040667 #### BENI RemHemo [address] [place] [address] UA Clarity Clear Normal Clear [facility] Comment on above: Performed By: #### 2 571382 #### BENI RemHemo [address] [place] [address] UA Leuk Est Negative Normal Negative [facility] Comment on above: Performed By: #### 2 818570 #### BENI RemHemo [address] [place] [address] UA Mucous Trace Abnormal Trace [facility] Comment on above: Performed By: #### 2 070523 #### BENI RemHemo [address] [place] [address] UA Nitrite Negative Normal Negative [facility] Comment on above: Performed By: #### 2 973074 #### BENI RemHemo [address] [place] [address] UA pH 7.0 Normal 4.6-8.0 [facility] Comment on above: Performed By: #### 2 561240 #### BENI RemHemo [address] [place] [address] UA Protein Negative Normal Negative [facility] Comment on above: Performed By: #### 2 349072 #### BENI RemHemo [address] [place] [address] UA Spec Grav 1.017 Normal 1.003-1.030 [facility] Comment on above: Performed By: #### 2 112643 #### BENI RemHemo [address] [place] [address] UA Urobilinogen Negative Normal [facility] Comment on above: Result Comment: Due to a manufacturing issue, low positive urobilinogen results may be fasely positive. Correlate with urine bilirubin and additional clinical/laboratory findings to assess the risk of hemolytic anemia or liver disease. If clinically indicated, repeat testing with an alternate method is available by contacting the laboratory within 24 hours. Performed By: #### 2 209455 #### BENI Leungo [address] [place] [id number] UA WBC 0-5 Normal 0-5 [facility] Comment on above: Performed By: #### 2 952983 #### BENI Leungo [address] [place] [address] Urobilinogen Qn (U) Negative Normal Negative [facility] Comment on above: Performed By: #### 2 709548 #### BENI Leungo [facility] [place] [address] eGFRon 09-20-2018 GFR/1.73 sq M predicted among non-blacks MDRD (S/P/Bld) [Vol rate/Area] mL/min/{1.73_m2} Normal [facility] Comment on above: Order Comment: Order Added by Discern Expert. Performed By: #### 2 770981 #### BENI Leungo [facility] [place] [address] CMPon 08-30-2018 Albumin [Mass/Vol] 4.2 g/dL Normal 3.4-5.0 [facility] Comment on above: Performed By: #### 2 208548 #### BENI Leungo [facility] [place] [address] Albumin/Globulin [Mass ratio] 1.7 {ratio} Normal 1.1-1.9 [facility] Comment on above: Performed By: #### 2 135090 #### BENI Leungo [facility] [place] [address] Alk Phos 57 Int._Unit/L Normal 33-136 [facility] Comment on above: Performed By: #### 2 060478 #### BENI Leungo [address] [place] [address] ALT [Catalytic activity/Vol] 21 Int._Unit/L Normal 10-52 [facility] Comment on above: Performed By: #### 2 885173 #### BENI RemHemo [address] [place] [address] Anion gap [Moles/Vol] 11 mmol/L Normal 10-20 [facility] Comment on above: Performed By: #### 2 924622 #### BENI RemHemo [address] [place] [address] AST [Catalytic activity/Vol] 17 Int._Unit/L Normal 9-39 [facility] Comment on above: Performed By: #### 2 892132 #### BENI RemHemo [address] [place] [address] Bili Total 0.51 mg/dL Normal 0.00-1.20 [facility] Comment on above: Performed By: #### 2 547497 #### BENI RemHemo [address] [place] [address] Calcium [Mass/Vol] 9.5 mg/dL Normal 8.6-10.3 [facility] Comment on above: Performed By: #### 2 729567 #### BENI RemHemo [address] [place] [address] Chloride [Moles/Vol] 106 mmol/L Normal 98-107 [facility] Comment on above: Performed By: #### 2 619302 #### BENI RemHemo [address] [place] [address] CO2 [Moles/Vol] 28.0 mmol/L Normal 21.0-32.0 [facility] Comment on above: Performed By: #### 2 581024 #### BENI RemHemo [address] [place] [address] Creatinine [Mass/Vol] 0.9 mg/dL Normal 0.5-1.3 [facility] Comment on above: Performed By: #### 2 380055 #### BENI RemHemo [address] [place] [address] Globulin (S) [Mass/Vol] 3.0 g/dL Normal 2.0-4.0 [facility] Comment on above: Performed By: #### 2 477430 #### BENI AnHemo [address] [place] [address] Glucose [Mass/Vol] 147 mg/dL High 70-99 [facility] Comment on above: Performed By: #### 2 068642 #### BENI AnHemo [address] [place] [address] Potassium [Moles/Vol] 3.8 mmol/L Normal 3.5-5.3 [facility] Comment on above: Performed By: #### 2 989824 #### BENI AnHemo [address] [place] [address] Protein [Mass/Vol] 6.7 g/dL Normal 6.4-8.2 [facility] Comment on above: Performed By: #### 2 946824 #### BENI AnHemo [address] [place] [address] Sodium [Moles/Vol] 141 mmol/L Normal 136-145 [facility] Comment on above: Performed By: #### 2 467926 #### BENI AnHemo [address] [place] [address] Urea nitrogen [Mass/Vol] 11 mg/dL Normal 6-23 [facility] Comment on above: Performed By: #### 2 788607 #### BENI AnHemo [address] [place] [address] Urea nitrogen/Creatinine [Mass ratio] 12.2 ratio Normal 5.4-30.0 [facility] Comment on above: Performed By: #### 2 581528 #### BENI AnHemo [address] [place] [address] [id number] 08-30-2018 HbA1c (Bld) [Mass fraction] 6.5 % High 4.0-6.3 [facility] Comment on above: Performed By: #### 2 867881 #### BENI AnHemo [address] [place] [address] Lipid Profileon 08-30-2018 Cholesterol [Mass/Vol] 186 mg/dL Normal 0-199 [facility] Comment on above: Result Comment: TOTA L CHOLEESTEROL: <200 NORMAL 200 - 239 BORDERLINE HIGH >240 HIGH Performed By: #### 2 283343 #### BENI RemHemo [address] [place] [address] Cholesterol in HDL [Mass/Vol] 43 mg/dL Normal 40-60 [facility] Comment on above: Performed By: #### 2 360410 #### BENI AnHemo [address] [place] [address] Cholesterol in LDL [Mass/Vol] 89 mg/dL Normal 0-130 [facility] Comment on above: Result Comment: <100 OPTIMAL 100-129 NEAR / ABOVE OPTIMAL 130-159 BORDERLINE HIGH 160-189 HIGH >190 VERY HIGH CALC LDL NOT VALID WHEN TRIGLYCERIDE IS >400 MG/DL Performed By: #### 2 507206 #### BENI AnHemo [address] [place] [address] Cholesterol in VLDL [Mass/Vol] 54 mg/dL High 0-40 [facility] Comment on above: Performed By: #### 2 758901 #### BENI RemHemo [address] [place] [address] Triglyceride [Mass/Vol] 271 mg/dL High 0-149 [facility] Comment on above: Result Comment: AGE DESIRABLE BORDERLINE HIGH 91 D - 9 Y 0 - 74 75 - 99 > 100 10 - 19 Y 0 - 89 90 - 129 > 130 20 -24 Y 0 - 114 115 - 149 > 150 > 25 0 - 149 150 - 199 200 - 499 Performed By: #### 2 615437 #### BENI AnHemo [address] [place] [address] Microalb/Creat Ratioon 08-30 Creatinine [Mass/Vol] 150.0 mg/dL Normal 20.0-300.0 [facility] Comment on above: Performed By: #### 2 879601 #### BENI RemHemo [address] [place] [address] Creatinine [Mass/Vol] 47 ug/mg High 0-30 [facility] Comment on above: Performed By: #### 2 400630 #### BENI RemHemo [address] [place] [address] Ur Microalbumin 7.0 mg/dL High 0.0-1.9 [facility] Comment on above: Performed By: #### 2 258605 #### BENI AnHemo [address] [place] [address] PSA Totalon 08-30-2018 PSA Total 0.47 ng/mL Normal [facility] Comment on above: Result Comment: AGE- SPECIFIC REFERENCE RANGES FOR SERUM PSA REFERENCE RANGE NG/ML AGE ASIANS BLACKS WHITE 40-49 0-2 0-2 0-2.5 50-59 0-3 0-4 0-3.5 60-69 0-4 0-4.5 0-4.5 70-79 0-5 0-5.5 0-6.5 PSA INCREASES WITH AGE, RACE, AND EJACULATION WITHIN 48 HRS. [facility] VOL24,NO.2, , PG.339 Performed By: #### 2 856379 #### BENI NataliyaHemo [facility] [place] [address] eGFRon 08-30-2018 GFR/1.73 sq M predicted among non-blacks MDRD (S/P/Bld) [Vol rate/Area] mL/min/{1.73_m2} Normal [facility] Comment on above: Order Comment: Order added by Discern Expert. Performed By: #### 2 159021 #### BENI NataliyaHemo [address] [place] [address] C Urineon 08-19-2018 C Urine Final Report: Rare N ormal skin jasmeet isolated Normal [facility] Comment on above: Performed By: #### 2 503291 #### BENI AnHemo [address] [place] [address] UA Completeon 08-17-2018 Color (U) Alyssia Abnormal Yellow [facility] Comment on above: Performed By: #### 2 338684 #### BENI NataliyaHemo [address] [place] [address] Glucose (U) [Mass/Vol] Negative Normal Negative [facility] Comment on above: Performed By: #### 2 483461 #### BENI RemHemo [address] [place] [address] Ketones Ql (U) Negative Normal Negative [facility] Comment on above: Performed By: #### 2 845491 #### BENI NataliyaHemo [address] [place] [address] RBC (U) [#/Vol] 0-3 Normal 0-3 [facility] Comment on above: Performed By: #### 2 781933 #### BENI AnHemo [address] [place] [address] UA Blood Negative Normal Negative [facility] Comment on above: Performed By: #### 2 824104 #### BENI AnHemo [address] [place] [address] UA Ascorbic Acid 20 mg/dL High <=19 [facility] Comment on above: Performed By: #### 2 732008 #### BENI RemHemo [address] [place] [address] UA Clarity SltCloudy Abnormal Clear [facility] Comment on above: Performed By: #### 2 578238 #### BENI AnHemo [address] [place] [address] UA Hyal Cast 3-5 Abnormal 0-2 [facility] Comment on above: Performed By: #### 2 026053 #### BENI RemHemo [address] [place] [id number] UA Leuk Est Negative Normal Negative [facility] Comment on above: Performed By: #### 2 381400 #### BENI AnHemo [address] [place] [id number] UA Mucous Trace Abnormal Trace [facility] Comment on above: Performed By: #### 2 109219 #### BENI AnHemo [address] [place] [address] UA Nitrite Negative Normal Negative [facility] Comment on above: Performed By: #### 2 748269 #### BENI RemHemo [address] [place] [address] UA pH 5.0 Normal 4.6-8.0 [facility] Comment on above: Performed By: #### 2 011194 #### BENI AnHemo [address] [place] [address] UA Protein 1+ Abnormal Negative [facility] Comment on above: Performed By: #### 2 253644 #### BENI AnHemo [address] [place] [id number] UA Spec Grav 1.024 Normal 1.003-1.030 [facility] Comment on above: Performed By: #### 2 364022 #### BENI AnHemo [address] [place] [address] UA Squam Epithelial 0-5 Normal 0-5 [facility] Comment on above: Performed By: #### 2 758289 #### BENI AnHemo [address] [place] [address] UA Urobilinogen Negative Normal [facility] Comment on above: Result Comment: Due to a manufacturing issue, low positive urobilinogen results may be fasely positive. Correlate with urine bilirubin and additional clinical/laboratory findings to assess the risk of hemolytic anemia or liver disease. If clinically indicated, repeat testing with an alternate method is available by contacting the laboratory within 24 hours. Performed By: #### 2 984553 #### BENI AnHemo [address] [place] [address] UA WBC 0-5 Normal 0-5 [facility] Comment on above: Performed By: #### 2 139502 #### BENI AnHemo [facility] [place] [id number] Urobilinogen Qn (U) Negative Normal Negative [facility] Comment on above: Performed By: #### 2 352276 #### BENI AnHemo [address] [place] [address] XR Abdomen 1 Viewon 08-17-19 19 XR Abdomen 1 View Exam Date/Time: 08/17/2018 09:31 EST Reason for Exam: Flank pain Report STUDY: XR Abdomen 1 View; 08/17/2018 9:31 am INDICATION: Flank pain. COMPARISON: 03/03/2018 ACCESSION NUMBER(S): [id number] ORDERING CLINICIAN: Babs Moreno FINDINGS: 2 supine AP radiographs of the abdomen were obtained. Postoperative changes are seen throughout the lumbar spine. The patient is status post bilateral total hip arthroplasty. No definite abnormal calcifications are seen overlying the kidneys or ureters bilaterally. There is a nonobstructive bowel gas pattern present. Free intraperitoneal air and air-fluid levels cannot be excluded without upright or decubitus images. IMPRESSION: No abnormal calcifications over the kidneys or ureters. FINAL REPORT Dictated: 08/17/2018 12:33 pm Rafat Braga MD Signed (Electronic Signature): 08/17/2018 12:33 pm Signed by: Rafat Braga MD Technologist: [facility] Normal [facility] Glucose POCon 06-15-2018 Glucose [Mass/Vol] 129 mg/dL High 70-99 [facility] Comment on above: Performed By: #### 2 262765 #### BENI RemHemo [address] [place] [address] PACU I Nursingon 04-19-2018 PACU I Nursing CO NA PACU I Nursing Record Summary Primary Physician: Elliott Onofre DO Finalized Date/Time: 04/19/18 14:31:51 Pt. Name: ALLI THOMPSON D.O.B./Sex: 1950 Male Med Rec #: [id number] Physician: Elliott Onofre DO Financial #: [id number] Pt. Type: I Room/Bed: [facility] Admit/Disch: 04/15/18 06:57:00 - 04/16/18 15:30:00 Institution: [place] NA OR Main PACU I Case Times Entry 1 In PACU I 04/15/18 11:32:00 Ready for PACU I 04/15/18 13:22:00 Discharge Discharge from PACU 04/15/18 13:43:00 PACU I Discharge Receiving Unit - RN I Delay Reason unavail for report Last Modified By: Anayeli Krishna RN 04/19/18 14:31:41 [facility] NA OR Main PACU I Case Attendees Entry 1 Case Attendee Angela Franklin RN Role Performed RN Last Modified By: Angela Franklin RN 04/15/18 13:10:58 Finalized By: Anayeli Krishna RN Document Signatures Signed By: Anayeli Krishna RN 04/19/18 14:31 Normal [facility] Patient Portal Messageon Patient Portal Message --- --- --- --- --- --- --- --- ---From: Hospital, Patient Summary VisitTo: ALLI THOMPSON RSent: 04/17/18 01:30:50 AM EDTSubject: New Results AvailableA summary regarding your recent visit is available in the Documents section of your Health Record. Normal [facility] Basic Metabolic Panelon 04-05 Calcium mass conc 8.5 mg/dL Normal 8.5-10.6 [facility] Chloride molar conc 103 mmol/L Normal 98-107 [facility] CO2 molar conc 25 mmol/L Normal 21-32 [facility] Creatinine mass conc 1.01 mg/dL Normal 0.70-1.30 [facility] Glucose mass conc 158 mg/dL High 74-106 [facility] Potassium molar conc 3.9 mmol/L Normal 3.5-5.1 [facility] Sodium molar conc 139 mmol/L Normal 136-145 [facility] Urea nitrogen mass conc (BldV) 11 mg/dL Normal 7-18 [facility] Urea nitrogen/Creatinine mass ratio 11 mg/mg Normal [facility] CBCon 04-16-2018 Erythrocyte distribution width Entitic volume (RBC) 13.5 % Normal 11.7-15.0 [facility] Hematocrit Auto Volume Fraction (Bld) 36.2 % Normal 34.0-50.0 [facility] Hemoglobin mass conc (Bld) 12.5 g/dL Normal 11.5-17.0 [facility] MCH Auto Entitic mass (RBC) 31.3 Picograms Normal 27.0-34.0 [facility] MCHC Auto mass conc (RBC) 34.6 g/dL Normal 32.0-36.0 [facility] MCV Auto Entitic volume (RBC) 90.4 fL Normal 80-98 [facility] Platelet mean volume Entitic volume (Bld) 6.9 FL Low 7.5-11.2 [facility] Platelets Auto #/vol (Bld) 209 thou/mcL Normal 140-415 [facility] RBC Auto #/vol (Bld) 4.00 x(10)6/mcL Normal 3.80-5.60 [facility] WBC Auto #/vol (Bld) 12.0 thou/mcL High 4.0-10.5 [facility] Operative/Procedure Reporton 04-16-2018 Protein mass conc DICTATED BY:ELLIOTT LOLIS PANFILODani DOSERVICE DATE:04/15/2018SURGEON:Ravin Onofre, DOASSISTANT:MORGAN Shipley-CANESTHESIA:General.[place] EOPERATIVE DIAGNOSES:1. Severe primary osteoarthritis, left hip.2. Body mass index greater than 39 secondary to increased caloric intake.POSTOPERATIVE DIAGNOSES:1. Severe primary osteoarthritis, left hip.2. Body mass index greater than 39 secondary to increased caloric intake.PROCEDURE:Noncemen saba left total hip arthroplasty utilizing Medacta size 6 femoral stem, Medacta size 54 mm acetabular cup with a polyethylene liner, +0 x 36 mm Delta Biolox ceramic femoral head.DESCRIPTION OF PROCEDURE:The patient was taken to the operative suite, placed in the supine position. Satisfactory anesthesia was administered per the Department of Anesthesia in the form of general anesthetic. The physician assistant sales center manager is utilized preoperatively, intraoperatively and postoperatively. She is integral to the procedure performed and does participate in all levels of care. Secondary to altered surgical eli and a BMI being greater than 39 secondary to increased caloric intake, additional help, additional manpower, surgical expertise, additional time, additional padding is required for more difficult and complex procedure. Sterile prep and drape of left lower extremity was then performed. A longitudinal incision for the standard anterolateral approach was then performed. Dissection was carried down through the subcutaneous tissue in a sharp fashion. The iliotibial band and gluteus luis fibers were incised in line with skin incision. Vastus lateralis as well as gluteus medius and minimus subperiosteally dissected. Hip capsule was opened anteriorly. Hip was then dislocated anteriorly. Abnormal shaped femoral head and neck were identified. Large osteophytes were noted in the femoral head and neck. They were then removed with a rongeur. Osteotomy of femoral neck was then performed at the appropriate level. Acetabular retractors were now placed, moving the femoral neck posteriorly. Once this had been completed, peripheral osteophytes were removed. Central osteophyte was removed. Initiation of reaming starts at 44 mm and advances to 55 mm. A trial 56 mm cup was placed and felt to be satisfactory. Bone graft from the femoral head had been obtained. It was retro reamed into the acetabulum and impacted. A 56 mm Medacta acetabular cup was then chosen. Once this had been placed, the 56 mm cup was then impacted fully. Polyethylene liner was locked in place. Check for hemostasis performed and achieved. The introitus of femoral canal was then brought back into view, opened with a cookie cutter, then a reamer. Broaching starts with a starter broach and then advances to a size 6. Good fit and rotational stability were noted. Calcar planing was performed. A +0 x 36 metal head was then placed. Hip was reduced, full range of motion. No ease of dislocatability was noted. The area was then copiously irrigated and dried. Trial components were now removed. At this point, a size 6 Medacta standard stem was then impacted fully. A +0 x 36 mm Delta Biolox ceramic femoral head was then impacted. Hip was reduced. Full range of motion. No ease of dislocatability noted. The area was then copiously irrigated and dried. Joints were now injected for pain control. Gluteus medius and minimus were then closed with #5 Ethibond in a running fashion. There did appear to be a preoperative hip abductor tendon tear. This area was then freshened with a rongeur and the tendon was then reattached during this closure of the gluteus medius and minimus. The iliotibial band and gluteus luis fibers were closed with #2 Quill. The subcutaneous tissue was closed with 0 Quill. Skin was then closed with Monoderm and final skin closure with Dermabond. Sterile dressing was then applied. The patient was then transferred to transport cart and transferred to the Post Anesthesia Care Unit in satisfactory condition. No complications were encountered. Secondary to increased bleeding risk, rapid mobilization, sequential compression devices and aspirin are utilized for DVT prophylaxis. Secondary to major orthopedic surgery, greater than 7 days of pain medications are required for this patient.GROSS FINDINGS:Include:1. Severe primary osteoarthritis of the left hip.2. Body mass index greater than 39 secondary to increased caloric intake.DICTATED, NOT PROOFREADCOMALLI GAMINGdate: 1950MRN: [id number]#: [id number]/04/15/2018 11:14:11 T/04/15/2018 14:19:13VOICE JOB ID:[id number] Carmel thanks you for the opportunity to care for your patient.DID: [id number] [facility] Patient Summaryon 04-16-2018 Patient Summary PATIENT DISCHARGE INSTRUCTIONSIf you are having an emergency and are not able to reach your physician, CALL 911 or go to the nearest emergency room and take this document with you. [facility] [place] [place] 04/16/18 [id number] [place], [place]. [address]Qsyys: PATIENT INFORMATION -------- Name: ALLI THOMPSON Address: [address] [place] [id number] Age: 67 Years Phone: [phone] : 1950 12:00 MRN: [id number] Sex: Male Race: White Ethnicity: Not Hispan/Lat Admitted From: Clinic or [facility] Medical Service: Orthopedic Surgery Nurse Unit/Bed: (CO) 2NBN 245-01 Admit Date: 04/15/2018 06:57 PCP: Physician, PCP UnknownPHYSICIANS INVOLVED WITH CARE Attending Physicians: None found Admitting Physician: None found Primary Care Physician:Physician, PCP Unknown,Family Practice,,, - Consults: Kendrick Sunhsine MD - Internal Medicine DAVID Horton - Internal MedicineFOLLOW-UP APPOINTMENTS: Provider: Specialty: Address: Date: Elliott Onofre DO [address] [facility] [place] [phone] (1) 04/30/18 11:00 am Provider: Specialty: Address: Date: PCP Unknown Physician Family Practice Follow-up as needed Provider: Specialty: Address: Date: Shinto [phone] Follow-up as needed ALLERGIES: No Known Medication Allergies No Known Allergies MEASUREMENTS: Last Charted: Weight: Admission 116.0 kg /255 lbs 12 oz ( 04/15/18 08:04:00 ) MEDICATIONS For: ALLI THOMPSON RThis is your list of medication(s). Keep it with you at all times. Your doctor may have changed doses, add, held or stopped some of your medications. Please share this information with your family doctor. Carry this list of medications with you in case of an emergency. Update it when medications are stopped, doses are changed, or new medications (including essg-ldj-sqwuzod products) are added. Ask your doctor if you have any questions. THESE ARE THE MEDICATIONS YOU SHOULD BE TAKINGAmLODIPine (amLODipine 10 mg oral tablet) 1 Tab(s) By Mouth once a day. am.calcium carbonate (OsCal 500) 1 Tab(s) By Mouth Twice a day.finasteride (finasteride 5 mg oral tablet) 1 Tab(s) By Mouth Bedtime.Freetext Medication FOLLOW INSTRUCTIONS FOR NEW POST OP PRESCRIPTIONS: Percocet Follow Surgeon instructions on Aspirin.hydroCHLOROthiazi de-triamterene (Maxzide 25 mg-37.5 mg oral tablet) 1 Tab(s) By Mouth once a day for 30 Days. am.lisinopril (lisinopril 40 mg oral tablet) 1 Tab(s) By Mouth once a day. am.MetFORMIN (metFORMIN 1000 mg oral tablet) 1 Tab(s) By Mouth Twice a day.multivitamin 1 Tab(s) By Mouth once a day.multivitamin (Vitamin B Complex oral tablet, extended release) 1 Tab(s) By Mouth once a day.MEDICATION CHANGE DETAILS (Not your Final Home Medication List)During the course of your visit, your home medication list was updated with the most current information. The details of those changes are shown below: NEW MEDICATIONSNoneUPDATED MEDICATIONSNoneUNCHANGED MEDICATIONSOther MedicationsAmLODIPine (amLODipine 10 mg oral tablet) 1 Tab(s) By Mouth once a day. am.Comment _calcium carbonate (OsCal 500) 1 Tab(s) By Mouth Twice a day.Comment __finasteride (finasteride 5 mg oral tablet) 1 Tab(s) By Mouth Bedtime.Comment Freetext Medication FOLLOW INSTRUCTIONS FOR NEW POST OP PRESCRIPTIONS: Percocet Follow Surgeon instructions on Aspirin.Comment hydroCHLOROthiazide -triamterene (Maxzide 25 mg-37.5 mg oral tablet) 1 Tab(s) By Mouth once a day for 30 Days. am.Comment _lisinopril (lisinopril 40 mg oral tablet) 1 Tab(s) By Mouth once a day. am.Comment _MetFORMIN (metFORMIN 1000 mg oral tablet) 1 Tab(s) By Mouth Twice a day.Comment __multivitamin 1 Tab(s) By Mouth once a day.Comment __multivitamin (Vitamin B Complex oral tablet, extended release) 1 Tab(s) By Mouth once a day.Comment __STOP TAKING THESE MEDICATIONSacetaminophen (Tylenol) 2 Tab(s) By Mouth 3 Times a day.DO NOT TAKE UNTIL YOU TALK TO YOUR DOCTORNone NON-MEDICATION PRESCRIPTION SCHEDULING PHONE NUMBER: SELECTED LAB RESULTS Lab Result Order DateHemoglobin 12.5 gm/dL 04/16/2018Hematocrit 36.2 % 04/16/2018WBC Count 12.0 thou/mcL 04/16/2018Platelet Count 209 thou/mcL 04/16/2018Sodium Level 139 mMol/L 04/16/2018Potassium Level 3.9 mMol/L 04/16/2018Creatinine 1.01 mg/dL 04/16/2018BUN 11 mg/dL 04/16/2018Glucose Blood POCT 164 mg/dLADVANCE DIRECTIVE/HEALTH CARE DECISIONS:Advance Directive/Health Care Decisions Executed by Patient: YesAdvance Directive/Health Care Decisions Type: Living Will, Medical Power of AttorneyCopy of Advance Directive/Health Care Decisions on Chart: Patient/Family asked to provide copySUICIDE HOTLINE: Your mental and emotional well-being are important. If you are in a mental health crisis, or having thoughts of suicide, please call the nationwide suicide hotline, anytime day or night, at 8-879-850-VVEH. Important information about accessing your health information through the [facility] [employer] patient portalIf you initiated the self-registration process [facility] during your stay, please check your personal email for an invitation to enroll in [facility] and complete the steps outlined in the email. If you would prefer to enroll while in the hospital, ask a member of your care team. We would be happy to assist you. If you have already enrolled in [facility], go to [email or web address] to login and access your health information. Thank you for choosing [facility] [employer]. PATIENT EDUCATIONFall Prevention in the HomeFalls can cause injuries and can affect people from all age groups. There are many simple things that you can do to make your home safe and to help prevent falls.WHAT CAN I DO ON THE OUTSIDE OF MY HOME?Regularly repair the edges of walkways and driveways and fix any cracks.???Remove high doorway thresholds.???Trim any shrubbery on the main path into your home.???Use bright outdoor lighting.???Clear walkways of debris and clutter, including tools and rocks.???Regularly check that handrails are securely fastened and in good repair. Both sides of any steps should have handrails.???Install guardrails along the edges of any raised decks or porches.???Have leaves, snow, and ice cleared regularly.???Use sand or salt on walkways during winter months.???In the garage, clean up any spills right away, including grease or oil spills.WHAT CAN I DO IN THE BATHROOM?Use night lights.???Install grab bars by the toilet and in the tub and shower. Do not use towel bars as grab bars.???Use non-skid mats or decals on the floor of the tub or shower.???If you need to sit down while you are in the shower, use a plastic, non-slip stool..???Keep the floor dry. Immediately clean up any water that spills on the floor.???Remove soap buildup in the tub or shower on a regular basis.???Attach bath mats securely with double-sided non-slip rug tape.???Remove throw rugs and other tripping hazards from the floor.WHAT CAN I DO IN THE BEDROOM?Use night lights.???Make sure that a bedside light is easy to reach.???Do not use oversized bedding that drapes onto the floor.???Have a firm chair that has side arms to use for getting dressed.???Remove throw rugs and other tripping hazards from the floor.WHAT CAN I DO IN THE KITCHEN?Clean up any spills right away.???Avoid walking on wet floors.???Place frequently used items in bnta-xy-hglwy places.???If you need to reach for something above you, use a sturdy step stool that has a grab bar.???Keep electrical cables out of the way.???Do not use floor colombian or wax that makes floors slippery. If you have to use wax, make sure that it is non-skid floor wax.???Remove throw rugs and other tripping hazards from the floor.WHAT CAN I DO IN THE STAIRWAYS?Do not leave any items on the stairs.???Make sure that there are handrails on both sides of the stairs. Fix handrails that are broken or loose. Make sure that handrails are as long as the stairways.???Check any carpeting to make sure that it is firmly attached to the stairs. Fix any carpet that is loose or worn.???Avoid having throw rugs at the top or bottom of stairways, or secure the rugs with carpet tape to prevent them from moving.???Make sure that you have a light switch at the top of the stairs and the bottom of the stairs. If you do not have them, have them installed.WHAT ARE SOME OTHER FALL PREVENTION TIPS?Wear closed-toe shoes that fit well and support your feet. Wear shoes that have rubber soles or low heels.???When you use a stepladder, make sure that it is completely opened and that the sides are firmly locked. Have someone hold the ladder while you are using it. Do not climb a closed stepladder.???Add color or contrast paint or tape to grab bars and handrails in your home. Place contrasting color strips on the first and last steps.???Use mobility aids as needed, such as canes, walkers, scooters, and crutches.???Turn on lights if it is dark. Replace any light bulbs that burn out.???Set up furniture so that there are clear paths. Keep the furniture in the same spot.???Fix any uneven floor surfaces.???Choose a carpet design that does not hide the edge of steps of a stairway.???Be aware of any and all pets.???Review your medicines with your healthcare provider. Some medicines can cause dizziness or changes in blood pressure, which increase your risk of falling. Talk with your health care provider about other ways that you can decrease your risk of falls. This may include working with a physical therapist or emr trainer to improve your strength, balance, and endurance.This information is not intended to replace advice given to you by your health care provider. Make sure you discuss any questions you have with your health care provider.Document Released: 06/12/2003 Document Revised: 11/06/2015 Document Reviewed: 07/27/2015Ti Interactive Patient Education ?2016 [employer].Incentive SpirometerAn incentive spirometer is a tool that can help keep your lungs clear and active. This tool measures how well you are filling your lungs with each breath. Taking long, deep breaths may help reverse or decrease the chance of developing breathing (pulmonary) problems (especially infection) following:???Surgery of the chest or abdomen.???Surgery if you have a history of smoking or a lung problem.???A long period of time when you are unable to move or be active.BEFORE THE PROCEDURE???If the spirometer includes an indicator to show your best effort, your nurse or respiratory therapist will set it to a desired goal.???If possible, sit up straight or lean slightly forward. Try not to slouch.???Hold the incentive spirometer in an upright position.INSTRUCTIONS FOR USE1.??Sit on the edge of your bed if possible, or sit up as far as you can in bed or on a chair. 2.??Hold the incentive spirometer in an upright position. 3.??Breathe out normally.4.??Place the mouthpiece in your mouth and seal your lips tightly around it. 5.??Breathe in slowly and as deeply as possible, raising the piston or the ball toward the top of the column. 6.??Hold your breath for 3?5 seconds or for as long as possible. Allow the piston or ball to fall to the bottom of the column. 7.??Remove the mouthpiece from your mouth and breathe out normally.8.??Rest for a few seconds and repeat Steps 1 through 7 at least 10 times every 1?2 hours when you are awake. Take your time and take a few normal breaths between deep breaths.9.??The spirometer may include an indicator to show your best effort. Use the indicator as a goal to work toward during each repetition. 10.??After each set of 10 deep breaths, practice coughing to be sure your lungs are clear. If you have an incision (the cut made at the time of surgery), support your incision when coughing by placing a pillow or rolled-up towels firmly against it. Once you are able to get out of bed, walk around indoors and cough well. You may stop using the incentive spirometer when instructed by your caregiver. RISKS AND COMPLICATIONS???Breathing too quickly may cause dizziness. At an extreme, this could cause you to pass out. Take your time so you do not get dizzy or light-headed. ???If you are in pain, you may need to take or ask for pain medication before doing incentive spirometry. It is harder to take a deep breath if you are having pain.AFTER USE???Rest and breathe slowly and easily. ???It can be helpful to keep a log of your progress. Your caregiver can provide you with a simple table to help with this. If you are using the spirometer at home, follow these instructions:SEEK MEDICAL CARE IF:???You are having difficultly using the spirometer. ???You have trouble using the spirometer as often as instructed.???Your pain medication is not giving enough relief while using the spirometer.???You develop fever of 100.5?F (38.1?C) or higher. SEEK IMMEDIATE MEDICAL CARE IF:???You cough up bloody sputum that had not been present before.???You develop fever of 102?F (38.9?C) or greater.???You develop worsening pain at or near the incision site.MAKE SURE YOU:???Understand these instructions. ???Will watch your condition.???Will get help right away if you are not doing well or get worse.This information is not intended to replace advice given to you by your health care provider. Make sure you discuss any questions you have with your health care provider.Document Released: 11/02/2007 Document Revised: 07/13/2015 Document Reviewed: 01/29/2015Ti Interactive Patient Education ?2016 [employer]Pain Medicine InstructionsHOW CAN PAIN MEDICINE AFFECT ME?You were given a prescription for pain medicine. This medicine may make you tired or drowsy and may affect your ability to think clearly. Pain medicine may also affect your ability to drive or perform certain physical activities. It may not be possible to make all of your pain go away, but you should be comfortable enough to move, breathe, and take care of yourself. HOW OFTEN SHOULD I TAKE PAIN MEDICINE AND HOW MUCH SHOULD I TAKE?Take pain medicine only as directed by your health care provider and only as needed for pain.???You do not need to take pain medicine if you are not having pain, unless directed by your health care provider.???You can take less than the prescribed dose if you find that a smaller amount of medicine controls your pain.WHAT RESTRICTIONS DO I HAVE WHILE TAKING PAIN MEDICINE?Follow these instructions after you start taking pain medicine, while you are taking the medicine, and for 8 hours after you stop taking the medicine:???Do not drive.???Do not operate machinery.???Do not operate power tools.???Do not sign legal documents.???Do not drink alcohol.???Do not take sleeping pills.???Do not supervise children by yourself. ???Do not participate in activities that require climbing or being in high places.???Do not enter a body of water?such as a zamudio, river, ocean, spa, or swimming pool?without an adult nearby who can monitor and help you.HOW CAN I KEEP OTHERS SAFE WHILE I AM TAKING PAIN MEDICINE?Store your pain medicine as directed by your health care provider. Make sure that it is placed where children and pets cannot reach it.???Never share your pain medicine with anyone.???Do not save any leftover pills. If you have any leftover pain medicine, get rid of it or destroy it as directed by your health care provider.WHAT ELSE DO I NEED TO KNOW ABOUT TAKING PAIN MEDICINE?Use a stool softener if you become constipated from your pain medicine. Increasing your intake of fruits and vegetables will also help with constipation.???Write down the times when you take your pain medicine. Look at the times before you take your next dose of medicine. It is easy to become confused while on pain medicine. Recording the times helps you to avoid an overdose.???If your pain is severe, do not try to treat it yourself by taking more pills than instructed on your prescription. Contact your health care provider for help.???You may have been prescribed a pain medicine that contains acetaminophen. Do not take any other acetaminophen while taking this medicine. An overdose of acetaminophen can result in severe liver damage. Acetaminophen is found in many zaxg-oje-dwsgyri (OTC) and prescription medicines. If you are taking any medicines in addition to your pain medicine, check the active ingredients on those medicines to see if acetaminophen is listed.WHEN SHOULD I CALL MY HEALTH CARE PROVIDER?Your medicine is not helping to make the pain go away.???You vomit or have diarrhea shortly after taking the medicine.???You develop new pain in areas that did not hurt before.???You have an allergic reaction to your medicine. This may include:???Itchiness.???S welling.???Dizziness.???D eveloping a new rash.WHEN SHOULD I CALL 911 OR GO TO THE EMERGENCY ROOM?You feel dizzy or you faint.???You are very confused or disoriented.???You repeatedly vomit.???Your skin or lips turn pale or bluish in color.???You have shortness of breath or you are breathing much more slowly than usual.???You have a severe allergic reaction to your medicine. This includes:???Developing tongue swelling.???Having difficulty breathing.This information is not intended to replace advice given to you by your health care provider. Make sure you discuss any questions you have with your health care provider.Document Released: 09/28/2001 Document Revised: 11/06/2015 Document Reviewed: 04/26/2015Ti Interactive Patient Education ?2016 [employer].PATIENT DISCHARGE INSTRUCTIONSignature Page for: ALLI THOMPSON RDclaudia/Time: 04/16/2018 13:19:32A Clinician has explained the information on my discharge instructions and has provided me with a copy.My questions have been answered to my satisfaction. Patient Signature Date/Time Responsible Party Date/Time Relationship to Patient __ Clinician Signature Date/Time ___ Normal [facility] Progress Noteson 04-16-2018 Protein mass conc Patient: Philly THOMPSON MRN: ([id number] Age: 67 years Sex: Male : 1950 Associated Diagnoses: None Author: Jong KRISHNAN , Kendrick Westfall Assessment Assessment Diagnosis: Osteoarthritis of left hip ([id number]-GL M16.12, Working, Medical). Plan Postoperative medical comanagement. I have ordered pain medicines including IV opiates, home prescription medications have been reviewed and appropriate medicines have been ordered for use post procedure while hospitalized.s/p Joint replacement surgery - L ANGÉLICA.DVT prophylaxis - as directed by the primary surgical team. Recommend prophylaxis as per 2012 ACCP concensus guidelines. Encourage lower extremity venous return exercises. Leukocytosis (D72.829) - likely secondary to postoperative inflammatory stress response and/or corticosteroid exposure. Patient currently denies signs or symptoms suggesting localized source of infection. Will continue to follow clinically and with serial labs. Hypertension (I10) - chronic condition present on admission, reasonable postoperative control. Patient's home prescription antihypertensive medicines have been ordered. Blood pressure reviewed and normotensive this morning. Type 2 Diabetes Mellitus (E11.9) - chronic condition present on admission. I have ordered the patient's home prescription medications. I have also added point of care glucose testing and sliding scale insulin while hospitalized. Postoperative Accu-Cheks have been within an acceptable range.Benign Prostatic Hypertrophy (N40.0) - chronic and present on admission, treated with home prescription medicines which have been reordered. Patient with adequate UOP. No c/o of urinary retention. Disposition - medically stable to discharge if passing flatus, room air sats greater than 90%, voiding without difficulty, acceptable with surgical service, has met the required physical therapy goals. I have reconciled the patient's home medications. The patient's DVT prophylaxis (pharmacologic and nonpharmacologic), NSAIDs, antibiotics, and pain medications/narcotics have been left to the discretion of the surgical service. Full LabsWBC Count: 12 thou/mcL High (04/16/18 04:45:00)Hemoglobin: 12.5 gm/dL (04/16/18 04:45:00)Platelet Count: 209 thou/mcL (04/16/18 04:45:00)BUN: 11 mg/dL (04/16/18 04:45:00)Carbon Dioxide Level: 25 mMol/L (04/16/18 04:45:00)Creatinine: 1.01 mg/dL (04/16/18 04:45:00)Glucose Level: 158 mg/dL High (04/16/18 04:45:00)Chloride Level: 103 mMol/L (04/16/18 04:45:00)Potassium Level: 3.9 mMol/L (04/16/18 04:45:00)Sodium Level: 139 mMol/L (04/16/18 04:45:00) Supervising Physician Comments Chief Complaint Postoperative Medical Care Postoperative Information Postoperative Follow Up Postoperative Follow Up. Day 1 Health Status Allergies Allergic Reactions (Selected)NKANo Known Medication Allergies Subjective Patient seen on the floor in the room. Resting without any visible distress. Pain is being controlled with ordered medication. Denies chest pain, shortness of breath, or nausea/vomiting. Positive flatus. Ding catheter absent.ROS:Constitutional : denies fever. Head/Neck: denies headache. Eye: denies eye pain. Ear/Nose/Mouth/Throat: denies sore throat. Neurologic: denies new focal weakness. Cardiovascular: denies chest pain. Respiratory: denies dyspnea. Gastrointestinal: denies abdominal pain. Genitourinary: denies incomplete emptyingSkin: denies rash. Objective Last Charted Vital Signs Temperature: 97.7 (04/16 11:22) Pulse: 72 (04/16 11:22) Respiration: 15 (04/16 11:22) BP: 115/70 (04/16 11:22) Activity: Awake (04/16 11:22) Pulse Ox: 94 (04/16 11:22) Oxygen Delivery: Room air (04/16 10:42) Pain Score: 5 (04/16 15:22) EXAM:General - conversant, no apparent distress, vitals reviewd and listed aboveSkin - no rashes, ulcers or lesions, normal turgur and temparature.Eyes - pupils equal, conjunctiva clearENT - nose and ears appear normal, hearing normalNeck - Trachea midline, No TMGCardiovascular - regular rate and rhythm, No murmurs, gallops, or rubs, no peripheral edemaRespiratory - CTA, normal respiratory effortGI - soft, nontender, no hepatosplenomegalyMusculo skeletal - no lower extremity calf tenderness, no digital cyanosis or cludbbingNeuro - Cranial nerves intact, no sensory deficitsPsych - A and Ox3, appropriate mood and affect Intake and Output (Previous 24Hrs) I and O Summary Begin date: 04/15 16:26 End date: 04/16 16:26 24 Hour Intake: 1630.00 Output: 1650.00 Balance: -20.00 Last BM: No BM Charted Results Review Labs - Last 36 hours (Max 2 / lab test) CHEMISTRY ____Sodium 139 (04/16 04:45) 141 (04/15 07:50) Potassium 3.9 (04/16 04:45) 3.3 (04/15 17:14) Chloride 103 (04/16 04:45) 105 (04/15 07:50) CO2 25 (04/16 04:45) 25 (04/15 07:50) Glucose 158 (04/16 04:45) 160 (04/15 07:50) Glucose POCT 164 (04/16 11:06) 205 (04/15 12:02) BUN 11 (04/16 04:45) 11 (04/15 07:50) Creatinine 1.01 (04/16 04:45) 1.02 (04/15 07:50) Calcium Total 8.5 (04/16 04:45) 9.4 (10/11 07:50) Magnesium No result HEMATOLOGY WBC 12.0 (04/16 04:45) RBC 4.00 (04/16 04:45) Hb 12.5 (04/16 04:45) 14.0 (04/15 17:14) Hematocrit 36.2 (04/16 04:45) Platelets 209 (04/16 04:45) MCV 90.4 (04/16 04:45) MCH 31.3 (04/16 04:45) RDW 13.5 (04/16 04:45) MCHC 34.6 (04/16 04:45) Neutrophil Ab No result Monocyte Ab No result Eosinophil Ab No result Basophil Ab No result Lymphocyte Ab No result OTHER LABS Est CrCl IBW (mL/min)-RX 67.72 mL/min (04/16 04:45) 67.06 mL/min (04/15 07:50) Est CrCl AdjBW (mL/min)-R 86.57 mL/min (04/16 04:45) 85.73 mL/min (04/15 07:50) BUN / Creatinine Ratio 11 (04/16 04:45) 11 (04/15 07:50) MPV 6.9 FL (04/16 04:45) X-rays last 36 hours XR Pelvis 1-2 Views: 04/15/18 12:25:00 See Radiology Report for More Detail Diagnosis Documentation Communication Normal [facility] Anesthesia Recordon 04-15-20 Anesthesia Record Patient: Philly THOMPSON MRN: [id number] Age: 67 years Sex: Male : 1950 Associated Diagnoses: None Author: Jaxson Bansal DO Procedure Time Out [place] Protocol: patient identity verified, site verified, side verified, procedure to be done verified, patient position verified. REGIONAL ANESTHESIA PROCEDURE Procedure date and begin time: See nurses notes. Procedure date and end time: See nurses notes. Second Procedure Start: Spinal block. Performed by: Jaxson Bansal DO. Assisted by: no assistant sales center manager. Informed consent: signed by patient. Technique: Spinal technique performed, for postoperative pain management, at surgeon request. Medications-Sedation: sedate with meaningful contact maintained.. Local Anesthesia: 1% lidocaine. Preparation for Peripheral Nerve Block: The skin was prepped with chlorhexidine in the usual fashion, sterile technique followed, including: drape, cap, hand washing, gloves, and mask.. Needle(s): 4 inches, 24 gauge. Needle(s): 3.5 inches, 22 gauge. Injectate: bupivacaine (concentration 0.75 %, volume 1.2 mL). SPINAL sterile prep with chloraprep and drape. 1cc 1% lidocaine local infiltration in lower lumbar region. spinal needle placed without paresthesia. +CSF. negative heme. subarachnoid injection without pain or paresthesia. patient responsive and interactive throughout procedure. Sterile Technique Followed throughout procedure. . Monitored during procedure: EKG, heart rate, heart rhythm, blood pressure (NIBP), pulse oximetry. Procedure tolerated: well. Complications: none. Procedure done in: holding area. Findings-Comments: none. Estimated Blood Loss: none. Specimen(s) obtained: none. Impression and Plan Diagnosis and Plan: Diagnosis Preoperative Diagnosis: Hip OA Postoperative Diagnosis: Hip OA . Normal [facility] Basic Metabolic Panelon 04-05 Calcium mass conc 9.4 mg/dL Normal 8.5-10.6 [facility] Chloride molar conc 105 mmol/L Normal 98-107 [facility] CO2 molar conc 25 mmol/L Normal 21-32 [facility] Creatinine mass conc 1.02 mg/dL Normal 0.70-1.30 [facility] Glucose mass conc 160 mg/dL High 74-106 [facility] Potassium molar conc 3.4 mmol/L Low 3.5-5.1 [facility] Sodium molar conc 141 mmol/L Normal 136-145 [facility] Urea nitrogen mass conc (BldV) 11 mg/dL Normal 7-18 [facility] Urea nitrogen/Creatinine mass ratio 11 mg/mg Normal [facility] Consultationon 04-15-2018 Consultation PDF Normal [facility] Hemoglobinon 04-15-2018 Hemoglobin mass conc (Bld) 14.0 g/dL Normal 11.5-17.0 [facility] Comment on above: Order Comment: 4 florencio rs post-op OR Nursingon 04-15-2018 OR Nursing CO NA OR Nursing Rec ord Summary Primary Physician: Elliott Onofre DO Finalized Date/Time: 04/15/18 11:41:26 Pt. Name: ALLI THOMPSON/Sex: 1950 Male Med Rec #: [id number] Physician: Elliott Onofre DO Financial #: [id number] Pt. Type: I Room/Bed: / Admit/Disch: 04/15/18 06:57:00 - Institution: [place] NA OR Case Times Entry 1 Patient Times Patient In Room 04/15/18 09:44:00 Patient Out Room 04/15/18 11:31:00 Surgical Times Start Time 04/15/18 10:31:00 Stop Time 04/15/18 11:23:00 Last Modified By: Zoila Alves RN 04/15/18 11:29:56 CO NA OR Delays Entry 1 Delay Reason Physician in Another Description delay in start time Procedure/Location Duration (minutes) 17 Min Last Modified By: Zoila Alves RN 04/15/18 10:35:23 CO NA OR Case Attendees Entry 1 Entry 2 Entry 3 Case Attendee Elliott Onofre DO, RN , Amira Hines Role Performed Primary Surgeon career services officer First Scrub Time In 04/15/18 10:29:00 04/15/18 09:44:00 04/15/18 09:44:00 Time Out 04/15/18 11:02:00 04/15/18 11:31:00 04/15/18 11:31:00 Procedure Arthroplasty Hip Arthroplasty Hip Arthroplasty Hip Total(Left) Total(Left) Total(Left) Attendee Comment Relief Reason Last Modified By: Joselyn RN , Zoila Alves RN , Zoila Alves RN , Zoila Sultana 04/15/18 11:29:58 04/15/18 11:29:58 04/15/18 11:29:58 Entry 4 Entry 5 Entry 6 Case Attendee Lasha MORA, Meron Clark CRNA , Dante Bansal DO, Jaxson Role Performed PA Barge Hand Nurse Tapping Machine Operator Anesthesiologist Time In 04/15/18 09:44:00 04/15/18 09:44:00 04/15/18 09:44:00 Time Out 04/15/18 11:31:00 04/15/18 11:31:00 04/15/18 11:31:00 Procedure Arthroplasty Hip Arthroplasty Hip Arthroplasty Hip Total(Left) Total(Left) Total(Left) Attendee Comment covering Relief Reason Last Modified By: Joselyn RN , Zoila Alves RN , Zoila Alves RN , Zoila Sultana 04/15/18 11:29:58 04/15/18 11:29:58 04/15/18 11:29:58 Entry 7 Entry 8 Entry 9 Case Attendee Nilda Velazquez Kathryn Case, Attendee Other Role Performed Assistive Personnel Second Scrub Progressive Care Manager Time In 04/15/18 09:44:00 04/15/18 09:44:00 04/15/18 09:44:00 Time Out 04/15/18 11:31:00 04/15/18 11:08:00 04/15/18 11:31:00 Procedure Arthroplasty Hip Arthroplasty Hip Arthroplasty Hip Total(Left) Total(Left) Total(Left) Attendee Comment Marita Griggs Relief Reason Last Modified By: Joselyn RN , Zoila Alves RN , Zoila Alves RN , Zoila Sultana 04/15/18 11:29:58 04/15/18 11:29:58 04/15/18 11:29:58 CO NA OR General Case Boring Mill Operator 1 OR CO NA 05 ASA Class 3 Case Wound Class Clean Specialty Orthopedic Surgery Case Level Ortho Complex Diagnosis Preop Diagnosis m16.12 m25.551 Postop Same As Preop Yes Postop Diagnosis m16.12 m25.551 This is a down time No record. Last Modified By: Zoila Alves RN 10/11/18 10:30:00 CO NA OR Surgical Procedures Entry 1 Procedure Arthroplasty Hip Total Primary Procedure Yes Modifiers Left Procedure Wound Clean Class Primary Surgeon Elliott Onofre DO Surgical Service Orthopedic Surgery Anesthesia Type General Procedure Performed left ANGÉLICA Start 04/15/18 10:31:00 Stop 04/15/18 11:23:00 Last Modified By: Zoila Alves RN 04/15/18 11:28:48 CO NA OR Catheters, Drains, and Tubes Entry 1 Device Type BARD LF 16FR DANNY DING Present on Arrival? No TRAY - [id number] Location BLADDER Inserted By Zoila Alves RN DC'd at End of Case? No Last Modified By: Zoila Alves RN 04/15/18 10:35:40 CO NA OR Patient Positioning Entry 1 Abdomen Pre N/A Skin Condition Warm, Dry, Intact Procedure Before Body Position Left lateral Pressure Points Yes Assessed? Right Arm Position On armboard Left Arm Position Lateral arm positioner Positioning Device Arm positioner, Right Leg Position Flexed Axillary Roll, Foam, Frame Lateral Positioning Left Leg Position Flexed Safety Strap Applied No Positioned By Nilda Velazquez Marcelo Positioning Comment Patient positioned Dante MENENDEZ Mooney lateral on padded peg Zoila EAST board with foam-padded pegs; Non-operative arm positioned on padded armboard; operative side arm positioned on overhead armboard. Non-operative leg flexed with foot padded and secured with tape. Procedure Arthroplasty Hip Total(Left) Last Modified By: Zoila Alves RN 04/15/18 10:36:08 CO NA OR Antithrombolytic Devices Entry 1 IPC Intermittent Right IPC Setting PRESET Pneumatic Compression IPC Size Knee Bariatric No SABA Hose SABA Hose Right SABA Size Thigh Bariatric No Foot Pump Last Modified By: Zoila Alves RN 04/15/18 10:36:19 CO NA OR Skin Prep Entry 1 Hair Removal Method None Skin Prep Prep Agents Chlorhexidine Gluconate Prep Site ENTIRE OPERATIVE LEG 2% w Alcohol HIP TO TOES Prep by Zoila Alves RN Procedure Arthroplasty Hip Total(Left) Last Modified By: Zoila Alves RN 04/15/18 10:36:27 CO NA OR Fire Risk Assessment Entry 1 Alcohol Based Prep Yes Solution Dry Time >3 Minutes or According to Manufactures Instructions. No Pooling Observed. (No Alcohol Prep used Select N/A) Fire Risk Factors Yes = 1, No or N/A = 0 Procedure No Open O2 Source No Site/Incision Above (Face Mask/Nasal Xyphoid Process Cannula) Ignition source Yes Fire Risk Total 1 (Cautery, Laser, Score Fiberoptic Light Source) Last Modified By: Zoila Alves RN 04/15/18 10:36:35 Post-Care Text: Standard Fire Safety precautions - Score 1 or 2 Prep drying time - minimum three minutes Protected heat source (i.e bovie arreola) Standard draping procedure HIGH RISK FIRE PRACTICES - SCORE 3 *RN verbalizes to the team the presence of high-risk score and verifies the fire triangle *Write High Risk on the white board *Verbally confirm lowest effective setting on the heat source *Minimize 02 entrapment by proper draping of the patient *Encourage use of wet sponges *Available basin with sterile water and bulb syringe for suppression *Anesthesia Awareness and communication of oxygen flows/concentration *Allow for dispersion of 02 at least 1 minute before and during electrosurgical and laser use and communicate to surgeon *Use lowest tolerable concentration of 02 (less than 30% when able) CO NA OR Surgical Safety Checklist Entry 1 TIme Out Verified 04/15/18 10:31:00 Procedure Arthroplasty Hip At: Total(Left) Pre-Induction Patient confirms Before Introduction of Additional identity, site and Incision/Suspend surgical team and/or Verification procedure, Anesthesia all Activities new members, Entire safety check complete, (Before surgical team verbally pulse ox on, Confirm Incision/Start of confirm patient, site, patient allergies, Procedure) procedure, Surgeon Patient aspiration risk reviews: what are the was assessed and critical or unexpected equipment/assistance steps, operative available if necessary, duration, and Blood loss assessment; anticipated blood if risk of >500 mL loss?, Anesthesia blood loss (7mL/kg in reviews: are there any children) adequate IV patient-specific access, fluids and/or concerns?, Nursing team blood products planned, reviews: has sterility Implants, devices, been confirmed and are special equipment there any available and patient-specific functioning concerns?, Antibiotic infused/ing and redosing discussed if applicable, Relevant images and results properly labeled and correctly displayed if applicable Fire Risk Yes Assessment Completed Last Modified By: Zoila Alves RN 04/15/18 10:37:00 CO NA OR Cautery Entry 1 Cautery and Settings Type Monopolar Unit ID Number 6 Coagulation Setting 50 Cut Setting 100 Grounding Pad Back left Applied By Zoila Alves RN Location Last Modified By: Zoila Alves RN 04/15/18 10:37:31 CO NA OR Medication Entry 1 Entry 2 Entry 3 Times Med Administered Medication CO BUPIVICAINE CO BUPIVACAINE 0.5% CO EPINEPHRINE INJ. LIPOSOMAL 1.3% 150MG/30ML VIAL 1:1000/ML AMPULE 266MG/20ML INJECTION EXPAREL Medication Dosage 20ml 25cc 0.5cc Route of Local local local Administration Meds Administered By Amisha ESTRADA , Elliott Gittins DO , Elliott Quilestins , Elliott Medication Comment Exparel/Marcaine/Epi mixture Last Modified By: Joselyn EAST , Zoila Alves RN , Zoila Willis RN 04/15/18 10:38:28 04/15/18 10:38:28 04/15/18 10:38:28 Entry 4 Times Med Administered Medication COS VANCOMYCIN 1 GM POWDER VANCOCIN Medication Dosage 1 GM Route of topical Administration Meds Administered By Elliott Onofre DO Medication Comment Last Modified By: Zoila Alves RN 04/15/18 10:38:28 CO NA OR Irrigation Entry 1 Irrigant 0.9% Saline Irrigant Volume 2000 mL Medication and 30ml betadine Dosage Last Modified By: Zoila Alves RN 04/15/18 10:38:37 CO NA OR Implants Entry 1 Entry 2 Entry 3 Procedure Arthroplasty Hip Arthroplasty Hip Arthroplasty Hip Total(Left) Total(Left) Total(Left) Implant/Explant Implant Implant Implant Wasted Reason Provided by Surgeon Implant Identification Description DH Acetabular [id number] Liner F STD femoral shell Medacta size 56 2 Medacta Stem, Medacta hole Derrick Builder Medacta Medacta Medacta Catalog Number .[id number] .[id number] Lot Number [id number] Serial Number na na na Implant Site Left Hip Left Hip Left Hip Quantity 1 1 1 Expiration Date 10/28/22 08/09/22 05/11/21 No Expiration Date No No No Unique Device Indent (DIANE) Human Readable Machine Readable Manufactured Date Tissue Tissue Implanted No No No Material Used to N/A N/A N/A Prepare/Process Tissue Processed By: Last Modified By: Zoila Alves RN, RN, Laura A Mooney RN, Laura A 04/15/18 11:02:00 04/15/18 11:02:00 04/15/18 11:02:00 Entry 4 Procedure Arthroplasty Hip Total(Left) Implant/Explant Implant Wasted Reason Provided by Surgeon Implant Identification Description Femoral head Derrick Builder Medacta Catalog Number Lot Number [id number] Serial Number na Implant Site Left Hip Quantity 1 Expiration Date 07/16/22 No Expiration Date No Unique Device Indent (DIANE) Human Readable Machine Readable Manufactured Date Tissue Tissue Implanted No Material Used to N/A Prepare/Process Tissue Processed By: Last Modified By: Zoila Alves RN 04/15/18 11:02:00 CO NA OR Counts Entry 1 Entry 2 Instrument Count N/A N/A Surgeon Notified of No Yes Count Sponge Count Initial Count Done 1st count correct X-ray Taken No No Sharps/Miscellaneous Initial Count Done 1st count correct Count RN Performing Count Zoila Alves RN, RN, Laura A Count Performed with Amira Olivares Marcy E. Comment Procedure Arthroplasty Hip Arthroplasty Hip Total(Left) Total(Left) Last Modified By: Zoila Alves RN, RN, Laura A 04/15/18 10:39:42 04/15/18 10:39:42 CO NA OR Dressing/Packing Entry 1 Dressing Dressing/Packing OPERATIVE HIP Site Dressing/Packing Dermabond, Optifoam, 3 Comment Blankets Between Legs Last Modified By: Zoila Alves RN 04/15/18 10:39:46 CO NA OR Temperature Regulation Entry 1 Unit ID 22 Site UPPER BODY Setting PER ANESTHESIA Warm blankets, Warm fluids Last Modified By: Zoila Alves RN 04/15/18 10:39:53 CO NA OR Final Count Entry 1 Sponges Correct Yes Sharps/Miscellaneous Yes Correct Instruments Correct n/a Count Performed with Amira Olivares RN Performing Count Zoila Alves RN Surgeon Notified of No Count X-ray Taken No Comment PA notified Procedure Arthroplasty Hip Total(Left) Last Modified By: Zoila Alves RN 04/15/18 10:40:17 CO NA OR PNDS Risk of Impaired Skin Entry 1 Interventions/Activi Identifies physical OUTCOME STATEMENTS: The patient is free ties: alterations that may from visible signs and affect symptoms of injury procedure-specific related to positioning, positioning., Positions immobilization, the patient., pressure and/or Implements protective shearing forces. measures to prevent skin or tissue injury due to thermal, chemical, or mechanical sources., Uses supplies and equipment within safe parameters., Evaluates for signs and symptoms of injury as a result of positioning, immobilization, pressure and/or shearing forces. Last Modified By: Zoila Alves RN 04/15/18 10:40:22 CO NA OR PNDS Risk of Altered Body Temp Entry 1 Interventions/Activi Monitors body OUTCOME STATEMENT: The patient is at or ties: temperature., returning to Implements normothermia at the thermoregulation conclusion of the measures., Evaluates operative period. response to thermoregulation. Last Modified By: Zoila Alves RN 04/15/18 10:40:27 CO NA OR PNDS Risk of Infection Entry 1 INTERVENTIONS/ACTIVI Implements aseptic OUTCOME STATEMENT: The patient is free of TIES: technique., Classifies signs and symptoms of surgical wound., infection at the Assesses susceptibility conclusion of the for infection., operative period. Performs skin preparations., Protects from cross-contamination., Monitors for signs and symptoms of infection., Minimizes the length of invasive procedure planning care., Administers prescribed prophylactic treatments., Initiates traffic control., Administers care to invasive device sites., Administers care to wound sites. Last Modified By: Zoila Alves RN 04/15/18 10:40:32 CO NA OR Patient Debriefing Entry 1 Patient Debriefing Verify name of Skin Assessment Warm, Dry, Intact procedure(s) performed After including site/side, Sponge and needle counts are correct, N/A review specimens and how each is labeled, Discuss equipment, instrument problems reported and case improvements, Review mayberry concerns for further patient management Last Modified By: Zoila Alves RN 04/15/18 10:40:50 CO NA OR PNDS Risk of Injury Entry 1 Interventions/Activi Implements protective OUTCOME STATEMENT: The patient is free ties: measures to prevent from visible signs and injury due to symptoms of injury electrical sources., related to electrical, Implements protective mechanical, radiation measures to prevent or laser. injury due to mechanical sources, Implements latex allergy precautions as needed, Records devices implanted during invasive procedure., Performs required counts., Evaluates for signs and symptoms of laser, electrical, mechanical and radiation injury. Last Modified By: Zoila Alves RN 04/15/18 10:40:37 CO NA OR Transport from OR Entry 1 Patient Status Sedated Post-op Destination PACU Phase I Via Bed Last Modified By: Zoila Alves RN 04/15/18 11:13:52 Case Comments Finalized By: Zoila Alves RN Document Signatures Signed By: Zoila Alves RN 04/15/18 11:30 Zoila Alves RN 04/15/18 11:41 Normal [facility] Potassium Levelon 04-15-2018 Potassium molar conc 3.3 mmol/L Low 3.5-5.1 [facility] PreOp Nursingon 04-15-2018 PreOp Nursing CO NA PreOp Nursing Record Summary Primary Physician: Elliott Onofre DO Finalized Date/Time: 04/15/18 10:20:53 Pt. Name: ALLI THOMPSON Serenity Shirley/Sex: 1950 Male Med Rec #: [id number] Physician: Elliott Onofre DO Financial #: [id number] Pt. Type: I Room/Bed: / Admit/Disch: 04/15/18 06:57:00 - Institution: CO NA OR PreOp Case Times Entry 1 PreOp Case Times In Room Time 04/15/18 07:15:00 Out Room Time 04/15/18 09:43:00 Last Modified By: Zoila Alves RN 04/15/18 10:20:23 CO NA OR PreOp Case Attendees Entry 1 Entry 2 Case Attendee Gerardo EAST , Lisa Hernandez RN, RN RN Last Modified By: Sancho Carrillo RN, RN, Jaime R 04/15/18 07:55:54 04/15/18 07:55:54 Finalized By: Zoila Alves RN Document Signatures Signed By: Zoila Alves RN 10/11/18 10:20 Normal [facility] XR Pelvis 1-2 Viewson 2017 XR Pelvis 1 or 2 views EXAM: XR Pelvis 1-2 Views.DATE OF EXAM: 04/15/2018 12:25 PM.HISTORY: Postoperative.COMPARISON: None.FINDINGS:There are changes of bilateral total hip arthroplasty, with longstem femoral components in both. Subcutaneous air about the left prosthesis is consistent with recent surgery. No evidence of acute fracture or hardware malalignment.Soft tissues grossly normal other than subcutaneous gas.IMPRESSION: Changes of bilateral total hip arthroplasty without evidence of complication. Subcutaneous air within the left thigh is compatible with recent surgery.[facility] thanks you for the opportunity to care for your patient. Workstation ID: [id number] FINAL REPORT Dictated By: Sofie Carbajal MD 04/15/2018 13:01Assigned Physician: Sofie Carbajal MDReviewed and Electronically Signed By: Sofie Carbajal MD 04/15/2018 13:02Transcribed by: JOSE MIGUEL 04/15/2018 13:01Technologist: SHANNON Normal [facility] C Urineon 03-14-2018 C Urine Final Report: Modera te Normal skin jasmeet isolated Normal [facility] Comment on above: Performed By: #### 2 [id number] #### BENI RemHemo [address] [id number] Auto Diffon 03-12-2018 Basophils (Bld) [#/Vol] 0.0 E3/mcL Normal 0.0-0.2 [facility] Comment on above: Order Comment: Order Added by Discern Expert. Performed By: #### 2 [id number] #### BENI RemHemo [address] [place] [address] Basophils/100 WBC (Bld) 0.5 % Normal 0.0-2.0 [facility] Comment on above: Order Comment: Order Added by Discern Expert. Performed By: #### 2 [id number] #### BENI RemHemo [address] [place] [address] Eos Absolute 0.2 E3/mcL Normal 0.0-0.7 [facility] Comment on above: Order Comment: Order Added by Discern Expert. Performed By: #### 2 [id number] #### BENI RemHemo [address] [place] [address] Eosinophils/100 WBC (Bld) 3.7 % Normal 0.0-11.0 [facility] Comment on above: Order Comment: Order Added by Discern Expert. Performed By: #### 2 [id number] #### BENI RemHemo [address] [place] [address] Lymphocytes (Bld) [#/Vol] 1.6 E3/mcL Normal 1.2-3.4 [facility] Comment on above: Order Comment: Order Added by Discern Expert. Performed By: #### 2 [id number] #### BENI RemHemo [address] [place] [address] Lymphocytes/100 WBC (Bld) 23.7 % Normal 20.0-55.0 [facility] Comment on above: Order Comment: Order Added by Discern Expert. Performed By: #### 2 [id number] #### BENI RemHemo [address] [place] [address] [place] Absolute 0.5 E3/mcL Normal 0.0-0.7 [facility] Comment on above: Order Comment: Order Added by Discern Expert. Performed By: #### 2 [id number] #### BENI RemHemo [address] [place] [address] Monocytes/100 WBC (Bld) 8.2 % Normal 0.0-10.0 [facility] Comment on above: Order Comment: Order Added by Discern Expert. Performed By: #### 2 [id number] #### BENI RemHemo [address] [place] [address] Neutro Absolute 4.2 E3/mcL Normal 1.4-6.5 [facility] Comment on above: Order Comment: Order Added by Discern Expert. Performed By: #### 2 [id number] #### BENI RemHemo [address] [place] [address] Neutro Auto 63.9 % Normal 37.0-75.0 [facility] Comment on above: Order Comment: Order Added by Discern Expert. Performed By: #### 2 [id number] #### BENI RemHemo [address] [place] [address] CBC w/ Auto Diffon 8 Erythrocyte distribution width (RBC) [Ratio] 13.9 % Normal 11.5-14.5 [facility] Comment on above: Performed By: #### 2 [id number] #### BENI AnHemo [address] [place] [address] Hematocrit (Bld) [Volume fraction] 45.1 % Normal 42.0-52.0 [facility] Comment on above: Performed By: #### 2 [id number] #### BENI RemHemo [facility] [place], [place] [address] Hemoglobin (Bld) [Mass/Vol] 15.1 g/dL Normal 13.5-18.0 [facility] Comment on above: Performed By: #### 2 [id number] #### BENI AnHemo [address] [place] [address] MCH (RBC) [Entitic mass] 31.1 pg High 27.0-31.0 [facility] Comment on above: Performed By: #### 2 [id number] #### BENI RemHemo [address] [place] [address] MCHC (RBC) [Mass/Vol] 33.4 g/dL Normal 33.0-37.0 [facility] Comment on above: Performed By: #### 2 [id number] #### BENI AnHemo [address] [place] [address] MCV (RBC) [Entitic vol] 93.1 fL Normal 78.0-100.0 [facility] Comment on above: Performed By: #### 2 [id number] #### BENI RemHemo [facility] [place] [address] Platelet mean volume (Bld) [Entitic vol] 7.2 fL Low 7.4-11.0 [facility] Comment on above: Performed By: #### 2 [id number] #### BENI RemHemo [facility] [place] [address] Platelets (Bld) [#/Vol] 240 E3/mcL Normal 130-400 [facility] Comment on above: Performed By: #### 2 [id number] #### BENI AnHemo [address] [place] [address] RBC (Bld) [#/Vol] 4.84 E6/mcL Normal 3.90-6.10 [facility] Comment on above: Performed By: #### 2 [id number] #### BENI AnHemo [address] [place] [address] WBC (Bld) [#/Vol] 6.6 E3/mcL Normal 3.6-11.0 [facility] Comment on above: Performed By: #### 2 [id number] #### BENI AnHemo [facility] [place] [address] CMPon 03-12-2018 Albumin [Mass/Vol] 4.5 g/dL Normal 3.2-5.0 [facility] Comment on above: Performed By: #### 2 [id number] #### BENI [address] [address] Albumin/Globulin [Mass ratio] 1.6 {ratio} Normal 1.1-1.9 [facility] Comment on above: Performed By: #### 2 747519 #### BENI AnChem [address] [place] [address] Alk Phos 55 Int._Unit/L Normal 42-121 [facility] Comment on above: Performed By: #### 2 [id number] #### BENI AnChem [facility] [place] [address] ALT [Catalytic activity/Vol] 17 Int._Unit/L Normal 10-40 [facility] Comment on above: Performed By: #### 2 [id number] #### BENI AnChem [address] [place] [address] AST [Catalytic activity/Vol] 19 Int._Unit/L Normal 10-42 [facility] Comment on above: Performed By: #### 2 [id number] #### BENIRd AnChem [address] [place] [address] Bili Total 1.0 mg/dL Normal 0.2-1.0 [facility] Comment on above: Performed By: #### 2 020614 #### [facility] [address] [place] [address] Calcium [Mass/Vol] 10.1 mg/dL Normal 8.4-10.2 [facility] Comment on above: Performed By: #### 2 849914 #### BENI RemChem [address] [place] [address] Chloride [Moles/Vol] 101 mmol/L Normal 98-107 [facility] Comment on above: Performed By: #### 2 404881 #### BENI RemChem [address] [place] [address] CO2 [Moles/Vol] 26.7 mmol/L Normal 24.0-30.0 [facility] Comment on above: Performed By: #### 2 824873 #### BENI RemChem [address] [place] [address] Creatinine [Mass/Vol] 0.9 mg/dL Normal 0.6-1.3 [facility] Comment on above: Performed By: #### 2 055447 #### BENI RemChem [address] [place] [address] Globulin (S) [Mass/Vol] 2.9 g/dL Normal 2.0-4.0 [facility] Comment on above: Performed By: #### 2 533161 #### BENI RemChem [address] [place] [address] Glucose [Mass/Vol] 143 mg/dL High 70-99 [facility] Comment on above: Performed By: #### 2 657558 #### BENI RemChem [address] [place] [address] Potassium [Moles/Vol] 4.0 mmol/L Normal 3.5-5.1 [facility] Comment on above: Performed By: #### 2 562673 #### BENI RemChem [address] [place] [address] Protein [Mass/Vol] 7.4 g/dL Normal 6.4-8.3 [facility] Comment on above: Performed By: #### 2 812765 #### BENI RemChem [address] [place] [address] Sodium [Moles/Vol] 139 mmol/L Normal 136-145 [facility] Comment on above: Performed By: #### 2 724051 #### BENI RemChem [address] [place] [id number] Urea nitrogen [Mass/Vol] 15 mg/dL Normal 7-18 [facility] Comment on above: Performed By: #### 2 759183 #### BENI RemChem [address] [place] [address] Urea nitrogen/Creatinine [Mass ratio] 16.7 ratio Normal 5.4-30.0 [facility] Comment on above: Performed By: #### 2 784253 #### BENI RemChem [address] [place], [place] [id number] [id number] 03-12-2018 HbA1c (Bld) [Mass fraction] 6.6 % High 4.0-6.3 [facility] Comment on above: Performed By: #### 3 [id number] #### BENI Chemistry Manual Subsection [address] [place] [address] PTon 03-12-2018 INR Coag (PPP) [Relative time] 1.0 {INR} Normal 1.0-1.2 [facility] Comment on above: Result Comment: INR Recommended Therapeuptic Ranges: Prophylaxis/treatment of DVT and PE?2.0-3.0 Prevention of systemic embolism?.2.0-3.0 Mechanical prosthetic values?2.5-3.5 CRITICAL VALUES?.>4.0 Performed By: #### 2 [id number] #### BENI Hematology Automated Subsection [address] [place], [place] [address] PT Coag (PPP) [Time] 13.0 second(s) Normal 11.6-14.6 [facility] Comment on above: Performed By: #### 2 [id number] #### BENI Hematology Automated Subsection [address] [place] [address] PTTon 03-12-2018 aPTT Coag (Bld) [Time] 36.1 second(s) Normal 23.2-36.4 [facility] Comment on above: Performed By: #### 2 350958 #### BENI Hematology Automated Subsection [facility] [place] [address] PTT Control Ratioon 03-12-20 18 PTT Ratio 1.2 ratio Normal 0.8-1.2 [facility] Comment on above: Order Comment: Order added by Discern Expert. Performed By: #### 8 [id number] #### BENI Hematology Automated Subsection [facility] [place] [address] UA Completeon 03-12-2018 Color (U) Yellow Normal Yellow [facility] Comment on above: Performed By: #### 8 [id number] #### BENI Urinalysis Automated Subsection [address] [place] [address] Glucose (U) [Mass/Vol] Negative Normal Negative [facility] Comment on above: Performed By: #### 8 [id number] #### BENI Urinalysis Automated Subsection [address] [place] [address] Ketones Ql (U) Negative Normal Negative [facility] Comment on above: Performed By: #### 8 [id number] #### BENI Urinalysis Automated Subsection [address] [place] [address] RBC (U) [#/Vol] 0-3 Normal 0-3 [facility] Comment on above: Performed By: #### 8 [id number] #### BENI Urinalysis Automated Subsection [address] [place] [address] UA Blood Negative Normal Negative [facility] Comment on above: Performed By: #### 8 [id number] #### BENI Urinalysis Automated Subsection [address] [place] [address] UA Clarity Clear Normal Clear [facility] Comment on above: Performed By: #### 8 [id number] #### BENI Urinalysis Automated Subsection [address] [place] [address] UA Leuk Est 1+ Abnormal Negative [facility] Comment on above: Performed By: #### 8 [id number] #### BENI Urinalysis Automated Subsection [address] [place] [address] UA Mucous Trace Abnormal Trace [facility] Comment on above: Performed By: #### 8 [id number] #### BENI Urinalysis Automated Subsection [address] [place] [address] UA Nitrite Negative Normal Negative [facility] Comment on above: Performed By: #### 8 [id number] #### BENI Urinalysis Automated Subsection [address] [place] [address] UA pH 5.0 Normal 4.6-8.0 [facility] Comment on above: Performed By: #### 8 [id number] #### BENI Urinalysis Automated Subsection [address] [place] [address] UA Protein Negative Normal Negative [facility] Comment on above: Performed By: #### 8 [id number] #### BENI Urinalysis Automated Subsection [address] [place] [address] UA Spec Grav 1.021 Normal 1.003-1.030 [facility] Comment on above: Performed By: #### 8 [id number] #### BENI Urinalysis Automated Subsection [address] [place] [address] UA Urobilinogen Negative Normal [facility] Comment on above: Performed By: #### 8 [id number] #### BENI Urinalysis Automated Subsection [address] [place] [address] UA WBC 20-50 Abnormal 0-5 [facility] Comment on above: Performed By: #### 8 [id number] #### BENI Urinalysis Automated Subsection [address] [place] [address] Urobilinogen Qn (U) Negative Normal Negative [facility] Comment on above: Performed By: #### 8 [id number] #### BENI Urinalysis Automated Subsection [address] [place] [address] XR Chest 2 Viewson 8 XR Chest 2 Views Exam Date/Time: 03/12/2018 09:19 EDT Reason for Exam: Pre-op;Other (please specify) Report STUDY: XR Chest 2 Views; 03/12/2018 9:19 am INDICATION: Other (please specify). COMPARISON: 10/14/2017. ACCESSION NUMBER(S): [id number] ORDERING CLINICIAN: Alan Whiteside FINDINGS: The lungs are bilaterally clear. No hilar or mediastinal enlargement is seen. The cardiac size is normal. Tortuosity of the descending thoracic aorta is present unchanged from the previous examination. There is no hilar or mediastinal enlargement. No pleural effusion is present. The pulmonary vascularity is normal. Marked degenerative changes of the midthoracic spine are present unchanged from the previous examination. IMPRESSION: No active disease. No significant change from the last examination of 10/14/2017. FINAL REPORT Dictated: 03/12/2018 4:36 pm Vinod Javier MD Signed (Electronic Signature): 03/12/2018 4:36 pm Signed by: Vinod Javier MD Technologist: [facility] eGFRon 03-12-2018 GFR/1.73 sq M predicted among non-blacks MDRD (S/P/Bld) [Vol rate/Area] mL/min/{1.73_m2} [facility] Comment on above: Order Comment: Order added by Discern Expert. Performed By: #### 1 [id number] #### BENI RemChem [address] [place] [address] OR Nursingon 11-02-2017 OR Nursing CO NA OR Nursing Rec ord Summary Primary Physician: Maya Rogers DO Finalized Date/Time: 11/02/17 11:40:09 Pt. Name: ALLI THOMPSON/Sex: 1950 Male Med Rec #: [id number] Physician: Maya Rogers DO Financial #: [id number] Pt. Type: I Room/Bed: [facility] Admit/Disch: 10/29/17 07:19:00 - 10/31/17 11:43:00 Institution: [place] NA OR Case Times Entry 1 Patient Times Patient In Room 10/29/17 10:04:00 Patient Out Room 10/29/17 14:25:00 Surgical Times Start Time 10/29/17 10:42:00 Stop Time 10/29/17 14:04:00 Last Modified By: Georges Cancino RN 10/29/17 14:22:54 CO NA OR Case Attendees Entry 1 Entry 2 Entry 3 Case Attendee Maya Rogers DO, CRNA , Kia Saldana DO Role Performed Primary Surgeon Nurse Tapping Machine Operator Anesthesiologist Time In 10/29/17 10:04:00 10/29/17 10:04:00 10/29/17 10:04:00 Time Out 10/29/17 13:46:00 10/29/17 11:22:00 10/29/17 14:25:00 Procedure Fusion Lumbar Fusion Lumbar Fusion Lumbar Posterior(Lumbar) Posterior(Lumbar) Posterior(Lumbar) Attendee Comment coverage Relief Reason Last Modified By: Barak RN , Georges Cancino RN , Georges Cancino RN , Georges Cee 10/29/17 14:23:01 10/29/17 14:23:01 10/29/17 14:23:01 Entry 4 Entry 5 Entry 6 Case Attendee Barak RN , Isaias Wills Anton Role Performed career services officer First Scrub Assistive Personnel Time In 10/29/17 10:04:00 10/29/17 10:04:00 10/29/17 10:04:00 Time Out 10/29/17 11:35:00 10/29/17 12:03:00 10/29/17 14:25:00 Procedure Fusion Lumbar Fusion Lumbar Fusion Lumbar Posterior(Lumbar) Posterior(Lumbar) Posterior(Lumbar) Attendee Comment Relief Reason Last Modified By: Barak RN , Georges Cancino RN , Georges Cancino RN , Georges Cee 10/29/17 14:23:01 10/29/17 14:23:01 10/29/17 14:23:01 Entry 7 Entry 8 Entry 9 Case Attendee Suyapa Self Case, Attendee Other Case, Attendee Other Role Performed Physician Campaign Assistant Resident Assistive Personnel Time In 10/29/17 10:04:00 10/29/17 10:04:00 10/29/17 10:04:00 Time Out 10/29/17 14:03:00 10/29/17 14:03:00 10/29/17 14:25:00 Procedure Fusion Lumbar Fusion Lumbar Fusion Lumbar Posterior(Lumbar) Posterior(Lumbar) Posterior(Lumbar) Attendee Comment dorian middleton Relief Reason Last Modified By: Barak RN , Georges Cancino RN , Georges Cancino RN , Georges Cee 10/29/17 14:23:01 10/29/17 14:23:01 10/29/17 14:23:01 Entry 10 Entry 11 Entry 12 Case Attendee Barber Jean, Attendee Other Case, Attendee Other A Role Performed Incident Response Analyst Progressive Care Manager Progressive Care Manager Time In 10/29/17 10:42:00 10/29/17 10:40:00 10/29/17 10:40:00 Time Out 10/29/17 13:36:00 10/29/17 13:30:00 10/29/17 13:30:00 Procedure Fusion Lumbar Fusion Lumbar Fusion Lumbar Posterior(Lumbar) Posterior(Lumbar) Posterior(Lumbar) Attendee Comment monroe landaverde milo davidson Relief Reason Last Modified By: Baark RN , Georges Cancino RN , Georges Cancino RN , Georges Cee 10/29/17 14:23:01 10/29/17 14:23:01 10/29/17 14:23:01 Entry 13 Entry 14 Entry 15 Case Attendee Flavia Schaefer, Attendee Other Jalen Morgan CRNA Role Performed Lump Maker Progressive Care Manager Nurse Tapping Machine Operator Time In 10/29/17 10:04:00 10/29/17 11:13:00 10/29/17 11:22:00 Time Out 10/29/17 14:00:00 10/29/17 13:30:00 10/29/17 11:53:00 Procedure Fusion Lumbar Fusion Lumbar Fusion Lumbar Posterior(Lumbar) Posterior(Lumbar) Posterior(Lumbar) Attendee Comment shannon de la garza Relief Reason Last Modified By: Barak RN , Georges Cancino RN , Georges Cancino RN , Georges Cee 10/29/17 14:23:01 10/29/17 14:23:01 10/29/17 14:23:01 Entry 16 Entry 17 Entry 18 Case Attendee Kiko EAST , Phoebe Zavala CREDIT HISTORIAN , Ramona Zelaya Role Performed career services officer Nurse Tapping Machine Operator First Scrub Time In 10/29/17 11:34:00 10/29/17 11:53:00 10/29/17 12:02:00 Time Out 10/29/17 12:04:00 10/29/17 14:25:00 10/29/17 12:44:00 Procedure Fusion Lumbar Fusion Lumbar Fusion Lumbar Posterior(Lumbar) Posterior(Lumbar) Posterior(Lumbar) Attendee Comment Relief Reason Lunch Lunch Last Modified By: Georges Cancino RN, RN, Veneva M Glover RN, Veneva M 10/29/17 14:23:01 10/29/17 14:23:01 10/29/17 14:23:01 Entry 19 Entry 20 Case Attendee Georges Cancino RN, Anthony T. Role Performed career services officer First Scrub Time In 10/29/17 12:04:00 10/29/17 12:44:00 Time Out 10/29/17 14:25:00 10/29/17 14:25:00 Procedure Fusion Lumbar Fusion Lumbar Posterior(Lumbar) Posterior(Lumbar) Attendee Comment Relief Reason Last Modified By: Georges Cancino RN, RN, Veneva M 10/29/17 14:23:01 10/29/17 14:23:01 CO NA OR General Case Boring Mill Operator 1 OR CO NA 02 ASA Class 2 Case Wound Class Clean Specialty Orthopedic Surgery Case Level Spine Complex Diagnosis Preop Diagnosis m41.86 m43.16 m48.062 Postop Same As Preop Yes Postop Diagnosis m41.86 m43.16 m48.062 This is a down time No record. Last Modified By: Georges Cancino RN 10/29/17 10:57:28 CO NA OR Surgical Procedures Entry 1 Procedure Fusion Lumbar Posterior Primary Procedure Yes Modifiers Lumbar Procedure Wound Clean Class Primary Surgeon Maya Rogers DO Surgical Service Orthopedic Surgery Anesthesia Type General Procedure Performed L2-5 psf plif decompression Start 10/29/17 10:42:00 Stop 10/29/17 14:04:00 Last Modified By: Anayeli Krishna RN 11/02/17 11:40:05 General Comments: 11/02/17 MODIFIED PROCEDURE PERFORMED ACCORDING TO PHYSICIAN OPERATIVE REPORT - ANAYELI KRISHNA BSN RN CNOR NURSE FAMILY PRACTICE NURSE PRACTITIONER CO NA OR Catheters, Drains, and Tubes Entry 1 Entry 2 Device Type BARD LF 16FR DANNY DING DRAIN 10 FR ROUND TRAY - [id number] Present on Arrival? No No Location BLADDER BACK Inserted By Georges Cancino RN, DO, Donald J Comments lt pink when nica inserted quickly cleared DC'd at End of Case? No No DC'd By Last Modified By: Georges Cancino RN, RN, Veneva M 10/29/17 10:58:10 10/29/17 10:58:10 CO NA OR Patient Positioning Entry 1 Abdomen Pre Soft Skin Condition Warm, Dry, Intact Procedure Before Body Position Prone Pressure Points Yes Assessed? Right Arm Position On armboard Left Arm Position On armboard Arm Secured Right, Left Positioning Device Bed Specialty, Foam, Pillows Right Leg Position Flexed Left Leg Position Flexed Safety Strap Applied Yes Safety Strap Thighs Location Positioned By Keven Gray Karnes Positioning Comment bed rail along abdm Alli MENENDEZ Glover padGeorges blankenship RN Procedure Fusion Lumbar Posterior(Lumbar) Last Modified By: Georges Cancino RN 10/29/17 10:58:53 CO NA OR Antithrombolytic Devices Entry 1 IPC Intermittent Right, Left IPC Setting PRE SET Pneumatic Compression IPC Size Knee Bariatric No SABA Hose Foot Pump Last Modified By: Georges Cancino RN 10/29/17 10:58:58 CO NA OR Skin Prep Entry 1 Hair Removal Method None Skin Prep Prep Agents Chlorhexidine Gluconate Prep Site BACK 2% w Alcohol Prep by Georges Cancino RN Procedure Fusion Lumbar Posterior(Lumbar) Last Modified By: Georges Cancino RN 10/29/17 10:59:05 CO NA OR Fire Risk Assessment Entry 1 Alcohol Based Prep Yes Solution Dry Time >3 Minutes or According to Manufactures Instructions. No Pooling Observed. (No Alcohol Prep used Select N/A) Fire Risk Factors Yes = 1, No or N/A = 0 Procedure No Open O2 Source No Site/Incision Above (Face Mask/Nasal Xyphoid Process Cannula) Ignition source Yes Fire Risk Total 2 (Cautery, Laser, Score Fiberoptic Light Source) Last Modified By: Georges Cancino RN 10/29/17 10:59:12 Post-Care Text: Standard Fire Safety precautions - Score 1 or 2 Prep drying time - minimum three minutes Protected heat source (i.e bovie arreola) Standard draping procedure HIGH RISK FIRE PRACTICES - SCORE 3 *RN verbalizes to the team the presence of high-risk score and verifies the fire triangle *Write High Risk on the white board *Verbally confirm lowest effective setting on the heat source *Minimize 02 entrapment by proper draping of the patient *Encourage use of wet sponges *Available basin with sterile water and bulb syringe for suppression *Anesthesia Awareness and communication of oxygen flows/concentration *Allow for dispersion of 02 at least 1 minute before and during electrosurgical and laser use and communicate to surgeon *Use lowest tolerable concentration of 02 (less than 30% when able) CO NA OR Surgical Safety Checklist Entry 1 TIme Out Verified 10/29/17 10:42:00 Procedure Fusion Lumbar At: Posterior(Lumbar) Pre-Induction Patient confirms Before Introduction of Additional identity, site and Incision/Suspend surgical team and/or Verification procedure, Anesthesia all Activities new members, Entire safety check complete, (Before surgical team verbally pulse ox on, Confirm Incision/Start of confirm patient, site, patient allergies, Procedure) procedure, Surgeon Patient aspiration risk reviews: what are the was assessed and critical or unexpected equipment/assistance steps, operative available if necessary, duration, and Blood loss assessment; anticipated blood if risk of >500 mL loss?, Anesthesia blood loss (7mL/kg in reviews: are there any children) adequate IV patient-specific access, fluids and/or concerns?, Nursing team blood products planned, reviews: has sterility Implants, devices, been confirmed and are special equipment there any available and patient-specific functioning concerns?, Antibiotic infused/ing and redosing discussed if applicable, Relevant images and results properly labeled and correctly displayed if applicable Fire Risk Yes Assessment Completed Last Modified By: Georges Cancino RN 10/29/17 10:59:34 CO NA OR Cautery Entry 1 Entry 2 Cautery and Settings Type Bipolar Monopolar Unit ID Number 8 [id number] Power Setting 45 Coagulation Setting 50 Cut Setting 45 Blend Setting Liter Flow Rate Grounding Pad Thigh left posterior Location Applied By Georges Cancino RN Last Modified By: Georges Cancino RN, RN, Veneva M 10/29/17 10:59:55 10/29/17 10:59:55 CO NA OR Medication Entry 1 Entry 2 Entry 3 Times Med Administered Medication CO THROMBIN SPRAY KIT 5 SURGIFOAM SZ 1973 CO TRANEXAMIC ACID 000 UNITS/1 VIAL POWDER 1000MG 10ML VIAL 33428-170-43 Medication Dosage 45051 100 1 gm Route of TOPICAL TOPICAL topical Administration Meds Administered By Maya Rogers DO, DO, Donald J Rohl DO, Donald J Medication Comment Last Modified By: Georges Cancino RN, RN, Veneva M Glover RN, Veneva M 10/29/17 11:00:58 10/29/17 11:00:58 10/29/17 11:00:58 Entry 4 Entry 5 Times Med Administered Medication COS VANCOMYCIN 1 GM CO BACITRACIN/POLYMIXIN POWDER VANCOCIN B OINTMENT 0.9GM FOILPACK Medication Dosage 1 gm 2 pkg Route of topical topical Administration Meds Administered By Maya Rogers DO, Kristyn Medication Comment Last Modified By: Georges Cancino RN, RN, Veneva M 10/29/17 11:00:58 10/29/17 14:17:45 CO NA OR Irrigation Entry 1 Entry 2 Irrigant 0.9% Saline 0.9% Saline Irrigant Volume 5000 mL 1000 mL Medication and bacitracin 00158 Dosage Last Modified By: Georges Cancino RN, RN, Veneva M 10/29/17 11:01:22 10/29/17 11:01:22 CO NA OR Implants Entry 1 Entry 2 Entry 3 Description Magnifuse 1x10cm SCREW SOLERA MAS SCREW SOLERA MAS Material DB [id number] DBM 6.5x50MM [id number] 7.5x50MM [id number] Serial Number [id number] na na Lot Number na na na Catalog Number [id number] Derrick [employer] Spinalgraft [employer] [facility] Expiration Date 06/02/19 No Expiration Date No Yes Yes Implant Site lumbar lumbar lumbar Quantity 1 6 2 Tissue Material Used to Prepare/Process Tissue Processed By: Isaias Hunt Anthony T. Wright, Anthony T. Last Modified By: Georges Cancino RN, RN , Georges Leahy RN 10/29/17 12:47:23 10/29/17 13:35:04 10/29/17 13:35:04 Entry 4 Entry 5 Description STEWART 100MM [id number] SET SCREW BREAK OFF 4.75MM [id number] Serial Number na na Lot Number na na Catalog Number [id number] Der[employer] Expiration Date No Expiration Date Yes Yes Implant Site lumbar lumbar Quantity 2 8 Tissue Material Used to Prepare/Process Tissue Processed By: Isaias Hunt Anthony T. Last Modified By: Georges Cancino RN, RN, Veneva M 10/29/17 13:35:04 10/29/17 13:35:04 CO NA OR Counts Entry 1 Entry 2 Instrument Count N/A N/A Surgeon Notified of Yes Count Sponge Count Initial Count Done 1st count correct X-ray Taken No No Sharps/Miscellaneous Initial Count Done 1st count correct Count RN Performing Count Georges Cancino RN, RN, Veneva M Count Performed with Isaias Hunt Anthony T. Comment Procedure Fusion Lumbar Fusion Lumbar Posterior(Lumbar) Posterior(Lumbar) Last Modified By: Georges Cancino RN, RN, Veneva M 10/29/17 11:01:45 10/29/17 11:01:45 CO NA OR Dressing/Packing Entry 1 Dressing Dressing/Packing BACK Site Dressing/Packing polysporin oint, Comment ABD'S; MEDIPORE TAPE Last Modified By: Georges Cancino RN 10/29/17 14:03:21 CO NA OR Temperature Regulation Entry 1 Device CON EQUIPMENT - GABY Unit ID 15 HUGGER Site LOWER BODY Setting PER ANESTHESIA Warm blankets Last Modified By: Georges Cancino RN 10/29/17 11:02:06 CO NA OR Final Count Entry 1 Sponges Correct Yes Sharps/Miscellaneous Yes Correct Instruments Correct n/a Count Performed with Isaias Hunt RN Performing Count Georges Cancino RN Surgeon Notified of Yes Count X-ray Taken No Comment with pa Procedure Fusion Lumbar Posterior(Lumbar) Last Modified By: Georges Cancino RN 10/29/17 11:02:24 CO NA OR PNDS Risk of Impaired Skin Entry 1 Interventions/Activi Identifies physical OUTCOME STATEMENTS: The patient is free ties: alterations that may from visible signs and affect symptoms of injury procedure-specific related to positioning, positioning., Positions immobilization, the patient., pressure and/or Implements protective shearing forces. measures to prevent skin or tissue injury due to thermal, chemical, or mechanical sources., Uses supplies and equipment within safe parameters., Evaluates for signs and symptoms of injury as a result of positioning, immobilization, pressure and/or shearing forces. Last Modified By: Georges Cancino RN 10/29/17 11:02:32 CO NA OR PNDS Risk of Altered Body Temp Entry 1 Interventions/Activi Monitors body OUTCOME STATEMENT: The patient is at or ties: temperature., returning to Implements normothermia at the thermoregulation conclusion of the measures., Evaluates operative period. response to thermoregulation. Last Modified By: Georges Cancino RN 10/29/17 11:02:35 CO NA OR PNDS Risk of Infection Entry 1 INTERVENTIONS/ACTIVI Implements aseptic OUTCOME STATEMENT: The patient is free of TIES: technique., Classifies signs and symptoms of surgical wound., infection at the Assesses susceptibility conclusion of the for infection., operative period. Performs skin preparations., Protects from cross-contamination., Monitors for signs and symptoms of infection., Minimizes the length of invasive procedure planning care., Administers prescribed prophylactic treatments., Initiates traffic control., Administers care to invasive device sites., Administers care to wound sites. Last Modified By: Georges Cancino RN 10/29/17 11:02:38 CO NA OR Patient Debriefing Entry 1 Patient Debriefing Verify name of Skin Assessment Unchanged from procedure(s) performed After Pre-Procedure including site/side, Sponge and needle counts are correct Abdomen Post Soft Procedure Last Modified By: Georges Cancino RN 10/29/17 11:02:54 CO NA OR PNDS Risk of Injury Entry 1 Interventions/Activi Implements protective OUTCOME STATEMENT: The patient is free ties: measures to prevent from visible signs and injury due to symptoms of injury electrical sources., related to electrical, Implements protective mechanical, radiation measures to prevent or laser. injury due to mechanical sources, Implements latex allergy precautions as needed, Records devices implanted during invasive procedure., Performs required counts., Evaluates for signs and symptoms of laser, electrical, mechanical and radiation injury. Last Modified By: Georges Cancino RN 10/29/17 11:02:43 CO NA OR Transport from OR Entry 1 Patient Status Sedated Post-op Destination PACU Phase I Via Bed Last Modified By: Georges Cancino RN 10/29/17 11:03:05 Case Comments Finalized By: Anayeli Krishna RN Document Signatures Signed By: Georges Cancino RN 10/29/17 14:23 Anayeli Krishna RN 11/02/17 11:40 Normal [facility] Patient Portal Messageon Patient Portal Message --- --- --- --- --- --- --- --- ---From: Hospital, Patient Summary VisitTo: ALLI THOMPSON RSent: 11/01/17 01:31:02 AM EDTSubject: New Results AvailableA summary regarding your recent visit is available in the Documents section of your Health Record. Normal [facility] Basic Metabolic Panelon 10-05 Calcium mass conc 8.7 mg/dL Normal 8.5-10.6 [facility] Chloride molar conc 103 mmol/L Normal 98-107 [facility] CO2 molar conc 28 mmol/L Normal 21-32 [facility] Creatinine mass conc 1.05 mg/dL Normal 0.70-1.30 [facility] Glucose mass conc 144 mg/dL High 74-106 [facility] Potassium molar conc 3.9 mmol/L [facility] 3.5[facility] Sodium molar conc 140 mmol/L Normal 136-145 [facility] Urea nitrogen mass conc (BldV) 17 mg/dL Normal 7-18 [facility] Urea nitrogen/Creatinine mass ratio 16 mg/mg Normal [facility] CBCon 10-31-2017 Erythrocyte distribution width Entitic volume (RBC) 13.6 % Normal 11.7-15.0 [facility] Hematocrit Auto Volume Fraction (Bld) 38.9 % Normal 34.0-50.0 [facility] Hemoglobin mass conc (Bld) 13.1 g/dL Normal 11.5-17.0 [facility] MCH Auto Entitic mass (RBC) 30.7 Picograms Normal 27.0-34.0 [facility] MCHC Auto mass conc (RBC) 33.7 g/dL Normal 32.0-36.0 [facility] MCV Auto Entitic volume (RBC) 91.1 fL Normal 80-98 [facility] Platelet mean volume Entitic volume (Bld) 7.0 FL Low 7.5-11.2 [facility] Platelets Auto #/vol (Bld) 200 thou/mcL Normal 140-415 [facility] RBC Auto #/vol (Bld) 4.27 x(10)6/mcL Normal 3.80-5.60 [facility] WBC Auto #/vol (Bld) 11.1 thou/mcL High 4.0-10.5 [facility] Not Display Data Discharg ajith 10-31-2017 Do Not Display Data Discharge [id number] [address] Name: ALLI THOMPSON : 1950 Current Date: 10/31/2017 09:07:31 Primary Care Provider Name: Physician, PCP Unknown, Physician Phone: Patient Education MaterialsALLI THOMPSON has been given the following patient education materials:Musculoskeletal Pain Medicine InstructionsHOW CAN PAIN MEDICINE AFFECT ME?You were prescribed pain medicine. This medicine may: ???Make you tired or sleepy.???Affect how well you can:???Drive???Do certain activities.Pain medicine may not make all of your pain go away. You should be comfortable enough to:???Move.???Breathe.??? Take care of yourself.HOW OFTEN SHOULD I TAKE PAIN MEDICINE AND HOW MUCH SHOULD I TAKE?Take pain medicine only as told by your doctor and only as needed for pain.???You do not need to take pain medicine if you are not having pain, unless your doctor tells you to do that.???You can take less than the prescribed dose if you find that less medicine helps your pain.WHAT SHOULD I AVOID WHILE I AM TAKING PAIN MEDICINE?Follow these instructions after you start taking pain medicine, while you are taking the medicine, and for 8 hours after you stop taking the medicine:???Do not drive.???Do not use machinery.???Do not use power tools.???Do not sign legal documents.???Do not drink alcohol.???Do not take sleeping pills.???Do not take care of children by yourself.???Do not do any activities that involve climbing or being in high places.???Do not go into any body of water unless there is an adult nearby who can watch and help you. This includes:???Lakes.???Rive rs.???Oceans.???Spas.???S wimming pools.HOW CAN I KEEP OTHERS SAFE WHILE I AM TAKING PAIN MEDICINE?Store your pain medicine as told by your doctor. Make sure that you keep it where children and pets cannot reach it.???Do not share your pain medicine with anyone.???Do not save any leftover pills. If you have any leftover pain medicine, get rid of it or destroy it as told by your doctor.WHAT ELSE DO I NEED TO KNOW ABOUT TAKING PAIN MEDICINE?Use a poop (stool) softener if you have trouble pooping (constipation) because of your pain medicine. Eating more fruits and vegetables also helps with constipation.???Write down the times when you take your pain medicine. Look at the times before you take your next dose of medicine.???If your pain is very bad, do not take more pills than told by your doctor. Call your doctor for help.???Your pain medicine might have acetaminophen in it. Do not take any other acetaminophen while you are taking this medicine. An overdose of acetaminophen can do very bad damage to your liver. If you are taking any medicines in addition to your pain medicine, check the active ingredients on those medicines to see if acetaminophen is listed.WHEN SHOULD I CALL MY DOCTOR?Your medicine is not helping the pain.???You do either of these soon after you take the medicine:???Throw up (vomit).???Have watery poop (diarrhea).???You have new pain in areas that did not hurt before.???You have an allergic reaction to your medicine. This may include:???Feeling itchy.???Swelling.???Feel ing dizzy.???Getting a new rash.WHEN SHOULD I CALL 911 OR GO TO THE EMERGENCY ROOM?You feel dizzy or you faint.???You feel very confused.???You throw up again and again.???Your skin or lips turn pale or bluish in color.???You are:???Short of breath.???Breathing much more slowly than usual.???You have a very bad allergic reaction to your medicine. This includes:???Developing a swollen tongue.???Having trouble breathing.This information is not intended to replace advice given to you by your health care provider. Make sure you discuss any questions you have with your health care provider.Document Released: 12/08/2008 Document Revised: 11/06/2015 Document Reviewed: 04/26/2015[employer] Interactive Patient Education ?2016 [place].Preventive MedicineFall Prevention in the HomeFalls can cause injuries. They can happen to people of all ages. There are many things you can do to make your home safe and to help prevent falls. WHAT CAN I DO ON THE OUTSIDE OF MY HOME?Regularly fix the edges of walkways and driveways and fix any cracks.???Remove anything that might make you trip as you walk through a door, such as a raised step or threshold.???Trim any bushes or trees on the path to your home.???Use bright outdoor lighting.???Clear any walking paths of anything that might make someone trip, such as rocks or tools.???Regularly check to see if handrails are loose or broken. Make sure that both sides of any steps have handrails.???Any raised decks and porches should have guardrails on the edges.???Have any leaves, snow, or ice cleared regularly.???Use sand or salt on walking paths during winter.???Clean up any spills in your garage right away. This includes oil or grease spills.WHAT CAN I DO IN THE BATHROOM?Use night lights.???Install grab bars by the toilet and in the tub and shower. Do not use towel bars as grab bars.???Use non-skid mats or decals in the tub or shower.???If you need to sit down in the shower, use a plastic, non-slip stool.???Keep the floor dry. Clean up any water that spills on the floor as soon as it happens.???Remove soap buildup in the tub or shower regularly.???Attach bath mats securely with double-sided non-slip rug tape.???Do not have throw rugs and other things on the floor that can make you trip.WHAT CAN I DO IN THE BEDROOM?Use night lights.???Make sure that you have a light by your bed that is easy to reach.???Do not use any sheets or blankets that are too big for your bed. They should not hang down onto the floor.???Have a firm chair that has side arms. You can use this for support while you get dressed.???Do not have throw rugs and other things on the floor that can make you trip.WHAT CAN I DO IN THE KITCHEN?Clean up any spills right away.???Avoid walking on wet floors.???Keep items that you use a lot in ljlr-kd-cifdp places.???If you need to reach something above you, use a strong step stool that has a grab bar.???Keep electrical cords out of the way.???Do not use floor colombian or wax that makes floors slippery. If you must use wax, use non-skid floor wax.???Do not have throw rugs and other things on the floor that can make you trip.WHAT CAN I DO WITH MY STAIRS?Do not leave any items on the stairs.???Make sure that there are handrails on both sides of the stairs and use them. Fix handrails that are broken or loose. Make sure that handrails are as long as the stairways.???Check any carpeting to make sure that it is firmly attached to the stairs. Fix any carpet that is loose or worn.???Avoid having throw rugs at the top or bottom of the stairs. If you do have throw rugs, attach them to the floor with carpet tape.???Make sure that you have a light switch at the top of the stairs and the bottom of the stairs. If you do not have them, ask someone to add them for you.WHAT ELSE CAN I DO TO HELP PREVENT FALLS?Wear shoes that:???Do not have high heels.???Have rubber bottoms.???Are comfortable and fit you well.???Are closed at the toe. Do not wear sandals.???If you use a stepladder:???Make sure that it is fully opened. Do not climb a closed stepladder.???Make sure that both sides of the stepladder are locked into place.???Ask someone to hold it for you, if possible.???Clearly elliott and make sure that you can see:???Any grab bars or handrails.???First and last steps.???Where the edge of each step is.???Use tools that help you move around (mobility aids) if they are needed. These include:???Canes.???Walke rs.???Scooters.???Crutche s.???Turn on the lights when you go into a dark area. Replace any light bulbs as soon as they burn out.???Set up your furniture so you have a clear path. Avoid moving your furniture around.???If any of your floors are uneven, fix them.???If there are any pets around you, be aware of where they are.???Review your medicines with your doctor. Some medicines can make you feel dizzy. This can increase your chance of falling.Ask your doctor what other things that you can do to help prevent falls.This information is not intended to replace advice given to you by your health care provider. Make sure you discuss any questions you have with your health care provider.Document Released: 04/18/2010 Document Revised: 11/06/2015 Document Reviewed: 07/27/2015[employer] Interactive Patient Education ?2016 [employer]Mindful Eating - Building New HabitsHealth EducationMindful eating is a mayberry part of good nutrition. Being mindful of what you are eating and enjoying the food you eat is an excellent habit to build. It can help you manage your weight, follow a special diet such as for diabetes, or eat healthier.You may find that you eat quickly or don't pay much attention to what or how much you are eating. This can lead to eating much more than you realize. When you eat mindlessly, you don't feel as satisfied as when you slow down and enjoy your food. Your mind needs to feel full - not just your stomach.Many people eat as a way of dealing with emotions and stress. Eating when you are bored, anxious or need comfort is very common. You may find yourself eating without even thinking about whether or not you are hungry.To increase your awareness:- Before eating anything make a conscious effort to ask yourself if you are really hungry.- Try keeping a food journal. Record how you are feeling as you begin and end eating, what you are eating, and the time you are eating.When you eat:- Slow down and savor each bite. Put down your fork between bites.- Try smelling your food. Enjoy the different scents of foods.- Focus on chewing food well and enjoying the tastes and textures of what you are eating.- Eat at the table. Put your food on a plate and sit down when you eat.- Don't multi-task while eating or eat in front of the TV or the computer.To avoid eating without thinking or overeating:- If there is food left on your plate and you are no longer hungry, cover it with a napkin or clear your plate. Clean up after meals.- Don't leave food sitting out and avoid candy dishes.- Don't keep food at your desk or in your office at work.- At parties, don't stand close to the food tables. Focus on enjoying the company.- Portion out your food. Never eat out of an original container such as a box of crackers or a bag of chips.Building mindful eating habits takes time and practice - just like any other skill. Share what you are doing with you friends and family members and ask them to support your efforts.Talk with your dietitian, nurse or doctor about any questions or concerns.To learn more about mindful eating:Eat What You Love and Love What You Eat by Jess Heath M.D.www.[facility] munsterBeijing BeyondsoftsofieWSI Onlinebiz.[facility] Mindfully: How to End Mindless Eating and Enjoy a Balanced Relationship with Food by Nicolle Parisi.eatingmindfully .comMindful Eating: A Guide to Rediscovering a Healthy and Joyful Relationship with Food by Chase Diazindless Eating: Why We Eat More Than We Think by Aron Fontaine to Eating HealthyHealth EducationHealthful eating is one of the most important things you can do to improve your health. You may be able to decrease your risk of diabetes, obesity, heart disease, osteoporosis, and certain cancers. Use USDA's MyPlate and food labels as tools to plan and balance your choices over the course of the day or week. Eat a variety of foods from all the food groups. This is where USDA's My Plate (www.choosemyplate.gov) will come in handy. Each food group provides some, but not all, of the nutrients you need. No one food group is more important than another- for good health you need them all. If you avoid one whole food group, your diet may be out of balance and missing mayberry nutrients. Eat 5 fruits and vegetables each day. Fruits and vegetables are a mayberry part of your healthy eating plan. They are packed with fiber, vitamins, minerals, and cancer fighting antioxidants. ?? They make great healthful snacks and are easy to grab and eat when you are in a hurry. ?? You can include them in every meal by having fruit on your cereal at breakfast, salads at lunch, cooked veggies for dinner or fruit as dessert. Choose high fiber foods. Dietary fiber that occurs naturally in foods may help reduce the risk of cardiovascular disease, obesity, and type 2 diabetes. Whole grain breads and cereals, beans, legumes, fruits, and vegetables are all high in fiber. Choose foods lower in fat and cholesterol. Cut down on food that is high in fat and cholesterol to keep your heart healthy, help lower your cholesterol levels, and help control your weight. The goal is to get no more than 30% of your total calories from fat. Choose foods lower in salt. One easy way to eat less salt is to stop adding salt to your food. Remove the salt shaker from the table to help break the habit of salting food before tasting it. Use herbs and spices to add flavor to foods. Try salt-free seasonings such as Mrs. Bullock??.A healthful goal is to keep your salt intake to 2,300 mg of sodium per day. Your doctor may prescribe a lower sodium goal of 1,500 mg per day if you have high blood pressure, heart failure, or kidney disease. Read the food labels for sodium per serving to choose the foods that are lower in sodium. Everyone needs calcium.Our bodies need calcium throughout our lives for strong teeth and bones. Calcium is also important for our blood, nerves, and muscles. If you do not eat enough calcium, your body takes calcium from your bones, which can put you at risk for developing osteoporosis (a bone-thinning disease). The dairy group is a great source of calcium. If you do not drink milk, try eating other calcium-rich foods such as cheese, yogurt, dark leafy greens, broccoli, or calcium-fortified cereals and juice. The goal is 3 servings of calcium-rich foods every day. Children, teenagers, and women need 4 servings per day.Limit sugar and sweets. Limit the number of foods you eat that contain added sugars such as desserts, doughnuts, cookies, and candies. Skip regular soda. Don't skip meals.You will have more energy and feel better if you eat at least 3 times a day. It's hard to get all of the nutrients you need when you skip meals. You may be tempted to make poor choices and to overeat when you do sit down to eat. Be realistic. Give yourself time to learn new, healthful eating habits. Most foods can be included in moderation. Control your portion sizes and eat what you have planned. Balance out your day. If one meal went ??out of bounds,?? make another meal cognos bi developer or go for a walk. Know your triggers, such as boredom or stress, which lead to overeating and find a healthful alternative such as exercise.The mayberry to eating healthfully is to set your goals, choose wisely, and start today!More Resources Include:www.choosemyplate .gov USDA's MyPlatewww.eatright.orgAm erican Dietetic AssociationSample Food Label Patient Signature Responsib le Party Relationship to Patient Clinician Signature Date Normal [facility] Patient Summaryon 10-31-2017 Patient Summary PATIENT DISCHARGE INSTRUCTIONSIf you are having an emergency and are not able to reach your physician, CALL 911 or go to the nearest emergency room and take this document with you. [facility] 10/31/17 09:[id number] [place], [place]. [address]Mimed: PATIENT INFORMATION -------- Name: ALLI THOMPSON Address: [address] [place] [id number] Age: 67 Years Phone: [phone] : 1950 12:00 MRN: [id number] Sex: Male Race: White Ethnicity: Not Hispan/Lat Admitted From: Clinic or [facility] Medical Service: Orthopedic Surgery Nurse Unit/Bed: (CO) 2NBN 243-01 Admit Date: 10/29/2017 07:19 PCP: Physician, PCP UnknownPHYSICIANS INVOLVED WITH CARE Attending Physicians: Maya Rogers DO - Orthopaedic Surg Admitting Physician: Maya Rogers DO - Orthopaedic Surg Primary Care Physician:Physician, PCP Unknown,Family Practice,,, - Consults: Jong KRISHNAN , Kendrick Westfall - Internal Medicine Fortino KRISHNAN , Josh Louise - Internal Medicine DAVID Horton - Internal Medicine FOLLOW-UP APPOINTMENTS: Provider: Specialty: Address: Date: Maya Rogers DO Orthopaedic Surg [address] [place] [phone] (1) Comment: Please call to schedule a 2 week post op appt for staple removal and eval, may call sooner if problems occur Provider: Specialty: Address: Date: PCP Unknown Physician Family Practice Follow-up as needed ALLERGIES: No Known Medication Allergies No Known Allergies MEASUREMENTS: Last Charted: Weight: Admission 119.9 kg /264 lbs 5 oz ( 10/29/17 08:16:00 ) MEDICATIONS For: ARLETTE ALLI RThis is your list of medication(s). Keep it with you at all times. Your doctor may have changed doses, add, held or stopped some of your medications. Please share this information with your family doctor. Carry this list of medications with you in case of an emergency. Update it when medications are stopped, doses are changed, or new medications (including yqlm-iye-oqmmdpg products) are added. Ask your doctor if you have any questions. THESE ARE THE MEDICATIONS YOU SHOULD BE TAKINGAmLODIPine (amLODipine 10 mg oral tablet) 1 Tab(s) By Mouth once a day. am.calcium carbonate (OsCal 500) 1 Tab(s) By Mouth Twice a day.cyclobenzaprine (Flexeril 10 mg oral tablet) 1 Tab(s) By Mouth 3 Times a day as needed spasms.finasteride (finasteride 5 mg oral tablet) 1 Tab(s) By Mouth Bedtime.Freetext Medication New written post op prescriptions -Percocet 5/325 -Flexeril 10 mg.gabapentin (Gabapentin 600 mg Tab) 2 Tab(s) By Mouth 3 Times a day.hydroCHLOROthiazide-t riamterene (Maxzide 25 mg-37.5 mg oral tablet) 1 Tab(s) By Mouth once a day for 30 Days. am.lisinopril (lisinopril 40 mg oral tablet) 1 Tab(s) By Mouth once a day. am.MetFORMIN (metFORMIN 1000 mg oral tablet) 1 Tab(s) By Mouth Twice a day.multivitamin 1 Tab(s) By Mouth once a day.multivitamin (Vitamin B Complex oral tablet, extended release) 1 Tab(s) By Mouth once a day.tamsulosin (Flomax 0.4 mg oral capsule) 1 Capsule By Mouth Bedtime.MEDICATION CHANGE DETAILS (Not your Final Home Medication List)During the course of your visit, your home medication list was updated with the most current information. The details of those changes are shown below: NEW MEDICATIONSNoneUPDATED MEDICATIONSNoneUNCHANGED MEDICATIONSOther MedicationsAmLODIPine (amLODipine 10 mg oral tablet) 1 Tab(s) By Mouth once a day. am.Comment _calcium carbonate (OsCal 500) 1 Tab(s) By Mouth Twice a day.Comment __cyclobenzaprine (Flexeril 10 mg oral tablet) 1 Tab(s) By Mouth 3 Times a day as needed spasms.Comment finasteride (finasteride 5 mg oral tablet) 1 Tab(s) By Mouth Bedtime.Comment Freetext Medication New written post op prescriptions -Percocet 5/325 -Flexeril 10 mg.Comment _gabapentin (Gabapentin 600 mg Tab) 2 Tab(s) By Mouth 3 Times a day.Comment __hydroCHLOROthiazide-tri amterene (Maxzide 25 mg-37.5 mg oral tablet) 1 Tab(s) By Mouth once a day for 30 Days. am.Comment _lisinopril (lisinopril 40 mg oral tablet) 1 Tab(s) By Mouth once a day. am.Comment _MetFORMIN (metFORMIN 1000 mg oral tablet) 1 Tab(s) By Mouth Twice a day.Comment __multivitamin 1 Tab(s) By Mouth once a day.Comment __multivitamin (Vitamin B Complex oral tablet, extended release) 1 Tab(s) By Mouth once a day.Comment __tamsulosin (Flomax 0.4 mg oral capsule) 1 Capsule By Mouth Bedtime.Comment STOP TAKING THESE MEDICATIONSacetaminophen- HYDROcodone (HYDROcodone/Acetaminophe n 5 mg/325 mg) 1 Tab(s) By Mouth 3 Times a day as needed Pain/Discomfort.ibuprofen (Advil 200 mg oral tablet) 1 Tab(s) By Mouth as needed Pain/Discomfort.DO NOT TAKE UNTIL YOU TALK TO YOUR DOCTORNone NON-MEDICATION PRESCRIPTION SCHEDULING PHONE NUMBER: SELECTED LAB RESULTS Lab Result Order DateHemoglobin 13.1 gm/dL 10/31/2017Hematocrit 38.9 % 10/31/2017WBC Count 11.1 thou/mcL 10/31/2017Platelet Count 200 thou/mcL 10/31/2017Sodium Level 140 mMol/L 10/31/2017Potassium Level 3.9 mMol/L 10/31/2017Creatinine 1.05 mg/dL 10/31/2017BUN 17 mg/dL 10/31/2017Glucose Blood POCT 152 mg/dLADVANCE DIRECTIVE/HEALTH CARE DECISIONS:[facility] Directive/Health Care Decisions Executed by Patient: YesAdvance Directive/Health Care Decisions Type: Living Will, Medical Power of AttorneyCopy of Advance Directive/Health Care Decisions on Chart: Patient/Family asked to provide copySUICIDE HOTLINE: Your mental and emotional well-being are important. If you are in a mental health crisis, or having thoughts of suicide, please call the nationwide suicide hotline, anytime day or night, at 5-363-723-OSKJ. Important information about accessing your health information through the [facility] patient portalIf you initiated the self-registration process for [facility] during your stay, please check your personal email for an invitation to enroll in [facility] and complete the steps outlined in the email. If you would prefer to enroll while in the hospital, ask a member of your care team. We would be happy to assist you. If you have already enrolled in [facility], go to [email or web address] to login and access your health information. Thank you for choosing [facility]. PATIENT EDUCATIONPain Medicine InstructionsHOW CAN PAIN MEDICINE AFFECT ME?You were prescribed pain medicine. This medicine may: ???Make you tired or sleepy.???Affect how well you can:???Drive???Do certain activities.Pain medicine may not make all of your pain go away. You should be comfortable enough to:???Move.???Breathe.??? Take care of yourself.HOW OFTEN SHOULD I TAKE PAIN MEDICINE AND HOW MUCH SHOULD I TAKE?Take pain medicine only as told by your doctor and only as needed for pain.???You do not need to take pain medicine if you are not having pain, unless your doctor tells you to do that.???You can take less than the prescribed dose if you find that less medicine helps your pain.WHAT SHOULD I AVOID WHILE I AM TAKING PAIN MEDICINE?Follow these instructions after you start taking pain medicine, while you are taking the medicine, and for 8 hours after you stop taking the medicine:???Do not drive.???Do not use machinery.???Do not use power tools.???Do not sign legal documents.???Do not drink alcohol.???Do not take sleeping pills.???Do not take care of children by yourself.???Do not do any activities that involve climbing or being in high places.???Do not go into any body of water unless there is an adult nearby who can watch and help you. This includes:???Lakes.???Rive rs.???Oceans.???Spas.???S wimming pools.HOW CAN I KEEP OTHERS SAFE WHILE I AM TAKING PAIN MEDICINE?Store your pain medicine as told by your doctor. Make sure that you keep it where children and pets cannot reach it.???Do not share your pain medicine with anyone.???Do not save any leftover pills. If you have any leftover pain medicine, get rid of it or destroy it as told by your doctor.WHAT ELSE DO I NEED TO KNOW ABOUT TAKING PAIN MEDICINE?Use a poop (stool) softener if you have trouble pooping (constipation) because of your pain medicine. Eating more fruits and vegetables also helps with constipation.???Write down the times when you take your pain medicine. Look at the times before you take your next dose of medicine.???If your pain is very bad, do not take more pills than told by your doctor. Call your doctor for help.???Your pain medicine might have acetaminophen in it. Do not take any other acetaminophen while you are taking this medicine. An overdose of acetaminophen can do very bad damage to your liver. If you are taking any medicines in addition to your pain medicine, check the active ingredients on those medicines to see if acetaminophen is listed.WHEN SHOULD I CALL MY DOCTOR?Your medicine is not helping the pain.???You do either of these soon after you take the medicine:???Throw up (vomit).???Have watery poop (diarrhea).???You have new pain in areas that did not hurt before.???You have an allergic reaction to your medicine. This may include:???Feeling itchy.???Swelling.???Feel ing dizzy.???Getting a new rash.WHEN SHOULD I CALL 911 OR GO TO THE EMERGENCY ROOM?You feel dizzy or you faint.???You feel very confused.???You throw up again and again.???Your skin or lips turn pale or bluish in color.???You are:???Short of breath.???Breathing much more slowly than usual.???You have a very bad allergic reaction to your medicine. This includes:???Developing a swollen tongue.???Having trouble breathing.This information is not intended to replace advice given to you by your health care provider. Make sure you discuss any questions you have with your health care provider.Document Released: 12/08/2008 Document Revised: 11/06/2015 Document Reviewed: 04/26/2015[employer] Interactive Patient Education ?2016 [employer]Fall Prevention in the HomeFalls can cause injuries. They can happen to people of all ages. There are many things you can do to make your home safe and to help prevent falls. WHAT CAN I DO ON THE OUTSIDE OF MY HOME?Regularly fix the edges of walkways and driveways and fix any cracks.???Remove anything that might make you trip as you walk through a door, such as a raised step or threshold.???Trim any bushes or trees on the path to your home.???Use bright outdoor lighting.???Clear any walking paths of anything that might make someone trip, such as rocks or tools.???Regularly check to see if handrails are loose or broken. Make sure that both sides of any steps have handrails.???Any raised decks and porches should have guardrails on the edges.???Have any leaves, snow, or ice cleared regularly.???Use sand or salt on walking paths during winter.???Clean up any spills in your garage right away. This includes oil or grease spills.WHAT CAN I DO IN THE BATHROOM?Use night lights.???Install grab bars by the toilet and in the tub and shower. Do not use towel bars as grab bars.???Use non-skid mats or decals in the tub or shower.???If you need to sit down in the shower, use a plastic, non-slip stool.???Keep the floor dry. Clean up any water that spills on the floor as soon as it happens.???Remove soap buildup in the tub or shower regularly.???Attach bath mats securely with double-sided non-slip rug tape.???Do not have throw rugs and other things on the floor that can make you trip.WHAT CAN I DO IN THE BEDROOM?Use night lights.???Make sure that you have a light by your bed that is easy to reach.???Do not use any sheets or blankets that are too big for your bed. They should not hang down onto the floor.???Have a firm chair that has side arms. You can use this for support while you get dressed.???Do not have throw rugs and other things on the floor that can make you trip.WHAT CAN I DO IN THE KITCHEN?Clean up any spills right away.???Avoid walking on wet floors.???Keep items that you use a lot in [id number] places.???If you need to reach something above you, use a strong step stool that has a grab bar.???Keep electrical cords out of the way.???Do not use floor colombian or wax that makes floors slippery. If you must use wax, use non-skid floor wax.???Do not have throw rugs and other things on the floor that can make you trip.WHAT CAN I DO WITH MY STAIRS?Do not leave any items on the stairs.???Make sure that there are handrails on both sides of the stairs and use them. Fix handrails that are broken or loose. Make sure that handrails are as long as the stairways.???Check any carpeting to make sure that it is firmly attached to the stairs. Fix any carpet that is loose or worn.???Avoid having throw rugs at the top or bottom of the stairs. If you do have throw rugs, attach them to the floor with carpet tape.???Make sure that you have a light switch at the top of the stairs and the bottom of the stairs. If you do not have them, ask someone to add them for you.WHAT ELSE CAN I DO TO HELP PREVENT FALLS?Wear shoes that:???Do not have high heels.???Have rubber bottoms.???Are comfortable and fit you well.???Are closed at the toe. Do not wear sandals.???If you use a stepladder:???Make sure that it is fully opened. Do not climb a closed stepladder.???Make sure that both sides of the stepladder are locked into place.???Ask someone to hold it for you, if possible.???Clearly elliott and make sure that you can see:???Any grab bars or handrails.???First and last steps.???Where the edge of each step is.???Use tools that help you move around (mobility aids) if they are needed. These include:???Canes.???Walke rs.???Scooters.???Crutche s.???Turn on the lights when you go into a dark area. Replace any light bulbs as soon as they burn out.???Set up your furniture so you have a clear path. Avoid moving your furniture around.???If any of your floors are uneven, fix them.???If there are any pets around you, be aware of where they are.???Review your medicines with your doctor. Some medicines can make you feel dizzy. This can increase your chance of falling.Ask your doctor what other things that you can do to help prevent falls.This information is not intended to replace advice given to you by your health care provider. Make sure you discuss any questions you have with your health care provider.Document Released: 04/18/2010 Document Revised: 11/06/2015 Document Reviewed: 07/27/2015[employer] Interactive Patient Education ?2016 [employer].Mindful Eating - Building New HabitsHealth EducationMindful eating is a mayberry part of good nutrition. Being mindful of what you are eating and enjoying the food you eat is an excellent habit to build. It can help you manage your weight, follow a special diet such as for diabetes, or eat healthier.You may find that you eat quickly or don't pay much attention to what or how much you are eating. This can lead to eating much more than you realize. When you eat mindlessly, you don't feel as satisfied as when you slow down and enjoy your food. Your mind needs to feel full - not just your stomach.Many people eat as a way of dealing with emotions and stress. Eating when you are bored, anxious or need comfort is very common. You may find yourself eating without even thinking about whether or not you are hungry.To increase your awareness:- Before eating anything make a conscious effort to ask yourself if you are really hungry.- Try keeping a food journal. Record how you are feeling as you begin and end eating, what you are eating, and the time you are eating.When you eat:- Slow down and savor each bite. Put down your fork between bites.- Try smelling your food. Enjoy the different scents of foods.- Focus on chewing food well and enjoying the tastes and textures of what you are eating.- Eat at the table. Put your food on a plate and sit down when you eat.- Don't multi-task while eating or eat in front of the TV or the computer.To avoid eating without thinking or overeating:- If there is food left on your plate and you are no longer hungry, cover it with a napkin or clear your plate. Clean up after meals.- Don't leave food sitting out and avoid candy dishes.- Don't keep food at your desk or in your office at work.- At parties, don't stand close to the food tables. Focus on enjoying the company.- Portion out your food. Never eat out of an original container such as a box of crackers or a bag of chips.Building mindful eating habits takes time and practice - just like any other skill. Share what you are doing with you friends and family members and ask them to support your efforts.Talk with your dietitian, nurse or doctor about any questions or concerns.To learn more about mindful eating:Eat What You Love and Love What You Eat by Jess Heath M.D.www.[facility] ng Mindfully: How to End Mindless Eating and Enjoy a Balanced Relationship with Food by Nicolle Parisi.eatingmindfully .comMindful Eating: A Guide to Rediscovering a Healthy and Joyful Relationship with Food by Chase Diazindless Eating: Why We Eat More Than We Think by Aron Fontaine to Eating HealthyHealth EducationHealthful eating is one of the most important things you can do to improve your health. You may be able to decrease your risk of diabetes, obesity, heart disease, osteoporosis, and certain cancers. Use [employer] MyPlate and food labels as tools to plan and balance your choices over the course of the day or week. Eat a variety of foods from all the food groups. This is where [employer]'s My Plate (www.choosemyplate.gov) will come in handy. Each food group provides some, but not all, of the nutrients you need. No one food group is more important than another- for good health you need them all. If you avoid one whole food group, your diet may be out of balance and missing mayberry nutrients. Eat 5 fruits and vegetables each day. Fruits and vegetables are a mayberry part of your healthy eating plan. They are packed with fiber, vitamins, minerals, and cancer fighting antioxidants. ?? They make great healthful snacks and are easy to grab and eat when you are in a hurry. ?? You can include them in every meal by having fruit on your cereal at breakfast, salads at lunch, cooked veggies for dinner or fruit as dessert. Choose high fiber foods. Dietary fiber that occurs naturally in foods may help reduce the risk of cardiovascular disease, obesity, and type 2 diabetes. Whole grain breads and cereals, beans, legumes, fruits, and vegetables are all high in fiber. Choose foods lower in fat and cholesterol. Cut down on food that is high in fat and cholesterol to keep your heart healthy, help lower your cholesterol levels, and help control your weight. The goal is to get no more than 30% of your total calories from fat. Choose foods lower in salt. One easy way to eat less salt is to stop adding salt to your food. Remove the salt shaker from the table to help break the habit of salting food before tasting it. Use herbs and spices to add flavor to foods. Try salt-free seasonings such as Mrs. Bullock??.A healthful goal is to keep your salt intake to 2,300 mg of sodium per day. Your doctor may prescribe a lower sodium goal of 1,500 mg per day if you have high blood pressure, heart failure, or kidney disease. Read the food labels for sodium per serving to choose the foods that are lower in sodium. Everyone needs calcium.Our bodies need calcium throughout our lives for strong teeth and bones. Calcium is also important for our blood, nerves, and muscles. If you do not eat enough calcium, your body takes calcium from your bones, which can put you at risk for developing osteoporosis (a bone-thinning disease). The dairy group is a great source of calcium. If you do not drink milk, try eating other calcium-rich foods such as cheese, yogurt, dark leafy greens, broccoli, or calcium-fortified cereals and juice. The goal is 3 servings of calcium-rich foods every day. Children, teenagers, and women need 4 servings per day.Limit sugar and sweets. Limit the number of foods you eat that contain added sugars such as desserts, doughnuts, cookies, and candies. Skip regular soda. Don't skip meals.You will have more energy and feel better if you eat at least 3 times a day. It's hard to get all of the nutrients you need when you skip meals. You may be tempted to make poor choices and to overeat when you do sit down to eat. Be realistic. Give yourself time to learn new, healthful eating habits. Most foods can be included in moderation. Control your portion sizes and eat what you have planned. Balance out your day. If one meal went ??out of bounds,?? make another meal cognos bi developer or go for a walk. Know your triggers, such as boredom or stress, which lead to overeating and find a healthful alternative such as exercise.The mayberry to eating healthfully is to set your goals, choose wisely, and start today!More Resources Include:www.choosemyplate .gov USDA's MyPlatewww.eatright.orgAm erican Dietetic AssociationSample Food Label PATIENT DISCHARGE INSTRUCTIONSignature Page for: ALLI THOMPSON RDate/Time: 10/31/2017 09:07:28A Clinician has explained the information on my discharge instructions and has provided me with a copy.My questions have been answered to my satisfaction. Patient Signature Date/Time Responsible Party Date/Time Relationship to Patient __ Clinician Signature Date/Time ___ Normal [facility] Progress Noteson 10-31-2017 Protein mass conc Patient: Philly THOMPSON Age: 67 years Sex: Male : 1950 Associated Diagnoses: None Author: Josh Freitas MD Assessment Assessment Diagnosis: DDD (degenerative disc disease), lumbar ([id number] M51.36, Working, Medical). Plan Degenerative disc disease lumbar spine s/p PLF Medically acceptable for discharge if passing flatus, room air sat greater than 90%, voiding without difficulty, meets PT goals, and acceptable to the surgical service. Home medication reconciliation completed, defer DVT prophylaxis, NSAIDs, anticoagulants, antibiotics, and pain medications to the surgical service.DVT prophylaxis is recommended per 2012 ACCP guidelines.Hypertension (I10) -chronic condition present on admission, reasonable postoperative control. Patient's home prescription antihypertensive medicines have been ordered.Benign Prostatic Hypertrophy (N40.0) - chronic and present on admission, treated with home prescription medicines which have been reordered. Patient will be at risk for and will need to be monitored closely for postoperative urinary retention.Type 2 Diabetes Mellitus (E11.9) - chronic condition present on admission,Point of care glucose results have been reviewed and are reasonably controlled.Leukocytosis (D72.829) - likely secondary to postoperative inflammatory stress response and/or corticosteroid exposure. Patient currently denies signs or symptoms suggesting localized source of infection. Will continue to follow clinically and with serial labs while hospitalized. Full LabsWBC Count: 11.1 thou/mcL High (10/31/17 05:31:03)Hemoglobin: 13.1 gm/dL (10/31/17 05:31:03)Platelet Count: 200 thou/mcL (10/31/17 05:31:03)BUN: 17 mg/dL (10/31/17 05:40:59)Carbon Dioxide Level: 28 mMol/L (10/31/17 05:40:59)Creatinine: 1.05 mg/dL (10/31/17 05:40:59)Glucose Level: 144 mg/dL High (10/31/17 05:40:59)Chloride Level: 103 mMol/L (10/31/17 05:40:59)Potassium Level: 3.9 mMol/L (10/31/17 05:40:59)Sodium Level: 140 mMol/L (10/31/17 05:40:59) Chief Complaint Postoperative Medical Care Postoperative Information Postoperative Follow Up Postoperative Follow Up: Day 2. Health Status Allergies Allergic Reactions (Selected)NKANo Known Medication Allergies Subjective Patient indicates that pain is controlled. Patient denies chest pain, shortness of breath, or nausea.Review of Systems Constitutional: denies fever. Head/Neck: denies headache. Eye: denies eye pain. Ear/Nose/Mouth/Throat: denies sore throat. Neurologic: denies any new focal weakness. Cardiovascular: denies chest pain. Respiratory: denies dyspnea. Gastrointestinal: denies abdominal pain. Genitourinary: denies incomplete voiding. Skin: denies rash. Objective Last Charted Vital Signs Temperature: 98.7 (10/31 08:18) Pulse: 115 (10/31 08:18) Respiration: 16 (10/31 08:18) BP: 100/67 (10/31 08:18) Pulse Ox: 90 (10/31 08:18) Oxygen Delivery: Nasal cannula (10/30 22:25) O2 Device Flow: 2 L/min Pain Score: 5 (10/31 06:19) General - No Apparent DistressSkin - No Rash, Normal TurgorCardiovascular - Regular Rate and Rhythm, No Peripheral EdemaRespiratory - Clear to Auscultation, Normal Respiratory EffortGI - Soft Nontender, + BS, No Masses Palpated Musculoskeletal - No Cyanosis or Digital Clubbing No Calf TendernessNeuro/Psych - A and Ox3, Appropiate Mood and Affect Intake and Output (Previous 24Hrs) I and O Summary Begin date: 10/30 08:54 End date: 10/31 08:54 24 Hour Intake: 388.34 Output: 1184.00 Balance: -795.66 Last BM: No BM Charted Results Review Labs - Last 36 hours (Max 2 / lab test) CHEMISTRY ____Sodium 140 (10/31 05:17) 141 (10/30 03:52) Potassium 3.9 (10/31 05:17) 3.9 (10/30 03:52) Chloride 103 (10/31 05:17) 102 (10/30 03:52) CO2 28 (10/31 05:17) 24 (10/30 03:52) Glucose 144 (10/31 05:17) 162 (10/30 03:52) Glucose POCT 152 (10/31 05:57) 169 (10/30 20:29) BUN 17 (10/31 05:17) 14 (10/30 03:52) Creatinine 1.05 (10/31 05:17) 0.88 (10/30 03:52) Calcium Total 8.7 (10/31 05:17) 8.8 (10/30 03:52) Magnesium No result HEMATOLOGY WBC 11.1 (10/31 05:17) 12.6 (10/30 03:52) RBC 4.27 (10/31 05:17) 4.64 (10/30 03:52) Hb 13.1 (10/31 05:17) 14.3 (10/30 03:52) Hematocrit 38.9 (10/31 05:17) 41.8 (10/30 03:52) Platelets 200 (10/31 05:17) 234 (10/30 03:52) MCV 91.1 (10/31 05:17) 90.1 (10/30 03:52) MCH 30.7 (10/31 05:17) 30.7 (10/30 03:52) RDW 13.6 (10/31 05:17) 13.6 (10/30 03:52) MCHC 33.7 (10/31 05:17) 34.1 (10/30 03:52) Neutrophil Ab No result Monocyte Ab No result Eosinophil Ab No result Basophil Ab No result Lymphocyte Ab No result OTHER LABS Est CrCl IBW (mL/min)-RX 63.66 mL/min (10/31 05:17) 75.95 mL/min (10/30 03:52) Est CrCl AdjBW (mL/min)-R 83.87 mL/min (10/31 05:17) 100.07 mL/min (10/30 03:52) BUN / Creatinine Ratio 16 (10/31 05:17) 16 (10/30 03:52) MPV 7.0 FL (10/31 05:17) 7.4 FL (10/30 03:52) X-rays last 36 hours No X-rays charted within the last 36 hours Normal [facility] Basic Metabolic Panelon 04-2 Calcium mass conc 8.8 mg/dL Normal 8.5-10.6 [facility] Chloride molar conc 102 mmol/L Normal 98-107 [facility] CO2 molar conc 24 mmol/L Normal 21-32 [facility] Creatinine mass conc 0.88 mg/dL Normal 0.70-1.30 [facility] Glucose mass conc 162 mg/dL High 74-106 [facility] Potassium molar conc 3.9 mmol/L Normal 3.5-5.1 [facility] Sodium molar conc 141 mmol/L Normal 136-145 [facility] Urea nitrogen mass conc (BldV) 14 mg/dL Normal 7-18 [facility] Urea nitrogen/Creatinine mass ratio 16 mg/mg Normal [facility] CBCon 10-30-2017 Erythrocyte distribution width Entitic volume (RBC) 13.6 % Normal 11.7-15.0 [facility] Hematocrit Auto Volume Fraction (Bld) 41.8 % Normal 34.0-50.0 [facility] Hemoglobin mass conc (Bld) 14.3 g/dL Normal 11.5-17.0 [facility] MCH Auto Entitic mass (RBC) 30.7 Picograms Normal 27.0-34.0 [facility] MCHC Auto mass conc (RBC) 34.1 g/dL Normal 32.0-36.0 [facility] MCV Auto Entitic volume (RBC) 90.1 fL Normal 80-98 [facility] Platelet mean volume Entitic volume (Bld) 7.4 FL Low 7.5-11.2 [facility] Platelets Auto #/vol (Bld) 234 thou/mcL Normal 140-415 [facility] RBC Auto #/vol (Bld) 4.64 x(10)6/mcL Normal 3.80-5.60 [facility] WBC Auto #/vol (Bld) 12.6 thou/mcL High 4.0-10.5 [facility] Operative/Procedure Reporton 10-30-2017 Protein mass conc DICTATED BY:MAYA ROGERS DOSERVICE DATE:10/29/2017PREOPERATI VE DIAGNOSES:1. Degenerative scoliosis, lumbar spine.2. Spinal stenosis L2 to L5.3. Acquired spondylolisthesis, L3-4 and L4-5.4. Left lower extremity radiculopathy.POSTOPERATI VE DIAGNOSES:1. Degenerative scoliosis, lumbar spine.2. Spinal stenosis L2 to L5.3. Acquired spondylolisthesis, L3-4 and L4-5.4. Left lower extremity radiculopathy.PROCEDURES: 1. Posterior spinal fusion L2 to L5.2. Bilateral decompression L2 to L5.3. Solera instrumentation L2-L5.4. Local bone graft with MagniFuse DBM.SURGEON:RUBEN Fisher EXCEPTIONAL CHILDREN TEACHER ASSISTANT:AYESHA LucasTHESIA:General.YUSUF CATIONS:The patient is a 67-year-old male who presents with complaint of severe low back pain and left greater than right leg pain. Pain is worse when he is up walking, better when he sits. Denies any bowel or bladder changes. He denies any fever or chills. He notices weakness in the leg as well as numbness. It has been going on for several years, getting progressively worse. He has had epidural injections, physical therapy and activity modification. MRI shows severe stenosis L3-4, L4-5 and moderate at L2-3. Plain x-rays show acquired spondylolisthesis L3-4 and L4-5 with degenerative scoliosis.PHYSICAL EXAMINATION:He has 4/5 dorsiflexors and quad strength on the left compared to the right. Sensation is altered in the L4 and L5 distribution on the left compared to the right. Pulses are palpable. Skin is warm to touch.INTRAOPERATIVE FINDINGS:He was noted to have severe arthrosis and spinal stenosis L3-4, L4-5 and moderate at L2-3. After bilateral decompression with instrumentation, he had improvement in his lumbar lordosis. Segments overall felt stable. Bone quality was excellent. No dural leaks were appreciated with Valsalva maneuver. No changes were noted with spinal cord monitoring throughout. It was elected not to take him up to L1 as that segment felt stable.DESCRIPTION OF PROCEDURE:The patient was taken to the OR suite and given a general anesthetic by Anesthesia. He is placed on a well-padded Dae frame in a prone position. All bony prominences were well padded. Male genitalia appropriately positioned. Dorsal lumbar spine was sterilely prepped and draped free in the usual surgical fashion. Bony landmarks were outlined under image intensification. A midline incision was made from the inferior spinous process of L1 down to L5. Electrocautery was used to maintain hemostasis. The incision was taken down dorsal lumbar fascia, which was released bilaterally. A standard submuscular dissection was then performed out to the facet joints and then out over to the tips of the transverse processes from L2 down to L5. Electrocautery was used to maintain hemostasis. Super-Slide retractor was placed. The levels were confirmed under lateral image. The posterior elements were skeletonized. The wound was copiously irrigated with normal saline. The L1-2 level overall felt very stiff. Next, pedicle screws were placed. The right L2 was addressed first. A starting hole was created with a high-speed bur. Steffee gearshift was inserted under lateral image. It was palpated with a ball-tip probe and found to have 4 side marcus and a floor. It was tapped with a 5.5 tap, re-palpated and found to be satisfactory and a 6.5 diameter Solera pedicle screw was placed. The process was repeated at L3, L4 and L5 on the right as well as L2, L3, L4 and L5 on the left in similar fashion. 7.5 diameter screws were placed at L5. The wound was again copiously irrigated with normal saline. The screws were stimulated and all were found to have good impedance greater than 15. Next, the decompression was performed. The bone was noted to be very hard. Double action rongeur was used to remove the spinous process of L4, L3 and the inferior 70% of L2. Then, using a combination of a high-speed karen, curets and Kerrison punches, a midline laminectomy was performed of L4, L3 and the inferior 60% of L2. The decompression was then taken out lateral to the medial wall of the pedicle bilaterally at L4-5 and L3-4. Ligamentum flavum was freed and excised L2 to L5 bilaterally. Foraminotomies were performed bilaterally at L3-4 and L4-5. A ball-tip probe was then able to be passed cephalad and caudal as well as out the foramen. No central or foraminal stenosis was appreciated. The wound was irrigated with 3 L of normal saline with bacitracin. The transverse process from L2 down to L5 were decorticated with a high-speed bur. Posterolateral gutters were then packed with morcellized autograft, products of decompression as well as MagniFuse DBM soaked in bone marrow aspirate. Two lordotically-contoured rods were applied to the pedicle screws, distraction was carried out to try and correct some of his scoliosis as well as kyphosis. Final torque tightening was performed. AP and lateral image showed the construct to be in excellent position and alignment. The canal was again palpated and no central or foraminal stenosis was appreciated. Thrombin and tranexamic acid were applied. Vancomycin powder was placed in the posterolateral gutters. A 1/8-inch Hemovac drain was placed deep to the dorsal lumbar fascia. Dorsal lumbar fascia was then reapproximated using multiple interrupted figure-of-8 sutures of #1 Vicryl in a watertight closure. Subcutaneous tissues were reapproximated using multiple interrupted inverted simple sutures of 0 and 2-0 Vicryl. Skin suyapa were used to reapproximate the skin margin. The incision was injected with 20 mL of 0.25% Marcaine with epinephrine. A sterile bulky dressing was applied.The patient was returned to the supine position, awakened, extubated, transferred to the recovery room having tolerated above procedure well and in stable condition. He was moving all extremities x4 prior to leaving the OR. The case was clean and elective.SPECIMENS:None.D RAINS:One 1/8-inch Hemovac drain.SPONGE COUNT:Accurate.BLOOD LOSS:250 mL.FLUIDS:4400 mL of crystalloid.URINE OUTPUT:350 mL.COMPLICATIONS:None.ALLI HUIZAR RBirthdate: 1950MRN: [id number]#: [id number]/10/29/2017 14:58:12 T10/29/2017 17:54:16VOICE JOB ID:[id number] Carmel thanks you for the opportunity to care for your patient.CC: STORMY TANG II, MD[address] [place], [place] [address]QIP: [id number] [facility] Progress Noteson 10-30-2017 Protein mass conc Patient: Philly THOMPSON MRN: ([id number] Age: 67 years Sex: Male : 1950 Associated Diagnoses: None Author: Kendrick Sunshine MD Assessment Assessment Diagnosis: DDD (degenerative disc disease), lumbar ([id number] M51.36, Working, Medical). Plan Degenerative Disc Disease Lumbar Spine (M51.36) S/P PLIF - I have ordered pain medicines including IV opiates, home prescription medications have been reviewed and appropriate medicines have been ordered for use post procedure while hospitalized.DVT prophylaxis - as directed by the primary surgical team. Recommend prophylaxis as per 2012 ACCP concensus guidelines. Leukocytosis (D72.829) - likely secondary to postoperative inflammatory stress response and/or corticosteroid exposure. Patient currently denies signs or symptoms suggesting localized source of infection. Will continue to follow clinically and with serial labs. Hypertension (I10) - chronic condition present on admission, reasonable postoperative control. Patient's home prescription antihypertensive medicines have been ordered. Blood pressure reviewed and normotensive this morning. Type 2 Diabetes Mellitus (E11.9) - chronic condition present on admission. I have ordered the patient's home prescription medications. I have also added point of care glucose testing and sliding scale insulin while hospitalized. Postoperative Accu-Cheks have been within an acceptable range.Benign Prostatic Hypertrophy (N40.0) - chronic and present on admission, treated with home prescription medicines which have been reordered. Patient with adequate UOP. No c/o of urinary retention. Morbid Obesity BMI>40 (E66.01) - BMI of 41. Chronic condition present on admission, patient will require close monitoring of respiratory status while hospitalized including use of continuous pulse oximetry. Increase DVT prophylaxis is recommended to the primary team. Otherwise, DVT prophylaxis is recommended per 2012 ACCP guidelines.Disposition - medically stable to discharge if passing flatus, room air sats greater than 90%, voiding without difficulty, acceptable with surgical service, has met the required physical therapy goals. I have reconciled the patient's home medications. The patient's DVT prophylaxis (pharmacologic and nonpharmacologic), NSAIDs, antibiotics, and pain medications/narcotics have been left to the discretion of the surgical service.Full LabsWBC Count: 12.6 thou/mcL High (10/30/17 05:47:02)Hemoglobin: 14.3 gm/dL (10/30/17 05:47:02)Platelet Count: 234 thou/mcL (10/30/17 05:47:02)BUN: 14 mg/dL (10/30/17 05:55:07)Carbon Dioxide Level: 24 mMol/L (10/30/17 05:55:07)Creatinine: 0.88 mg/dL (10/30/17 05:55:07)Glucose Level: 162 mg/dL High (10/30/17 05:55:07)Chloride Level: 102 mMol/L (10/30/17 05:55:07)Potassium Level: 3.9 mMol/L (10/30/17 05:55:07)Sodium Level: 141 mMol/L (10/30/17 05:55:07) Supervising Physician Comments Chief Complaint Postoperative Medical Care Postoperative Information Postoperative Follow Up Postoperative Follow Up. Day 1 Health Status Allergies Allergic Reactions (Selected)NKANo Known Medication Allergies Subjective Patient seen on the floor in the room. Resting without any visible distress. Pain is being controlled with ordered medication. Denies chest pain, shortness of breath, or nausea/vomiting. Positive flatus. Ding catheter absent.ROS:Constitutional : denies fever. Head/Neck: denies headache. Eye: denies eye pain. Ear/Nose/Mouth/Throat: denies sore throat. Neurologic: denies new focal weakness. Cardiovascular: denies chest pain. Respiratory: denies dyspnea. Gastrointestinal: denies abdominal pain. Genitourinary: denies incomplete emptyingSkin: denies rash. Objective Last Charted Vital Signs Temperature: 98.8 (10/30 11:32) Pulse: 90 (10/30 11:32) Respiration: 16 (10/30 11:32) BP: 90/58 (10/30 11:32) Pulse Ox: 91 (10/30 11:32) Oxygen Delivery: Room air (10/30 12:00) Pain Score: 5 (10/30 13:35) EXAM:General - conversant, no apparent distress, vitals reviewd and listed aboveSkin - no rashes, ulcers or lesions, normal turgur and temparature.Eyes - pupils equal, conjunctiva clearENT - nose and ears appear normal, hearing normalNeck - Trachea midline, No TMGCardiovascular - regular rate and rhythm, No murmurs, gallops, or rubs, no peripheral edemaRespiratory - CTA, normal respiratory effortGI - soft, nontender, no hepatosplenomegalyMusculo skeletal - no lower extremity calf tenderness, no digital cyanosis or cludbbingNeuro - Cranial nerves intact, no sensory deficits Psych - A and Ox3, appropriate mood and affect Intake and Output (Previous 24Hrs) I and O Summary Begin date: 10/29 16:14 End date: 10/30 16:14 24 Hour Intake: 131.67 Output: 3520.00 Balance: -3388.33 Last BM: No BM Charted Results Review Labs - Last 36 hours (Max 2 / lab test) CHEMISTRY ____Sodium 141 (10/30 03:52) 139 (10/29 08:35) Potassium 3.9 (10/30 03:52) 3.7 (10/29 08:35) Chloride 102 (10/30 03:52) 102 (10/29 08:35) CO2 24 (10/30 03:52) 24 (10/29 08:35) Glucose 162 (10/30 03:52) 139 (10/29 08:35) Glucose POCT 152 (10/30 12:00) 158 (10/30 06:22) BUN 14 (10/30 03:52) 20 (10/29 08:35) Creatinine 0.88 (10/30 03:52) 1.06 (10/29 08:35) Calcium Total 8.8 (10/30 03:52) 9.3 (10/29 08:35) Magnesium No result HEMATOLOGY WBC 12.6 (10/30 03:52) RBC 4.64 (10/30 03:52) Hb 14.3 (10/30 03:52) Hematocrit 41.8 (10/30 03:52) Platelets 234 (10/30 03:52) MCV 90.1 (10/30 03:52) MCH 30.7 (10/30 03:52) RDW 13.6 (10/30 03:52) MCHC 34.1 (10/30 03:52) Neutrophil Ab No result Monocyte Ab No result Eosinophil Ab No result Basophil Ab No result Lymphocyte Ab No result OTHER LABS Est CrCl IBW (mL/min)-RX 75.95 mL/min (10/30 03:52) 63.06 mL/min (10/29 08:35) Est CrCl AdjBW (mL/min)-R 100.07 mL/min (10/30 03:52) 83.08 mL/min (10/29 08:35) BUN / Creatinine Ratio 16 (10/30 03:52) 19 (10/29 08:35) MPV 7.4 FL (10/30 03:52) X-rays last 36 hours XR Fluoro Less 1 Hour (Statistics)(NR): 10/29/17 13:35:00 See Radiology Report for More Detail Diagnosis Documentation Communication Normal [facility] Provider Clarificationon Protein mass conc Patient: Philly THOMPSON MRN: [id number] Age: 67 years Sex: Male : 1950 Associated Diagnoses: None Author: Jodi Horvath Communication Please address the following: Patient Details: Your patient has a documented BMI (Body Mass Index) of 41 . Guidelines allow a patient's BMI to be reported as a secondary diagnosis when accompanied by an associated nutritional diagnosis to support the severity of illness. Clinical Indicators: Height 5ft 7inchesWeight 264 lbsRisk Factors:Postop lumbar fusionBased on the above clinical indicators, please further clarify the diagnosis:o ? BMI ? 40o Morbid obesityo Obesityo Overweighto Pickwickian Syndrome? BMI is not significant? Other-Please Specify? Unable to DetermineNOTE: Use of terms such as suspected, possible, or probable (associated with a specific diagnosis being evaluated, monitored, or treated) are acceptable in the inpatient setting as long as documented as such at the time of discharge.PLEASE DO NOT DOCUMENT YOUR RESPONSE ON THIS FORM. The additional documentation must be in the last Progress Note and/or Discharge Summary.Thank you,Clinical Uranium Processing Supervisor: Jazmyne Horvath RN, CDSContact: Vu Respond: 1. Open the patient record and the document requiring the addendum.2. Right click on the body of the document and select Modify. 3. Type a response to the query in the Insert Addendum Here field. 4. Click Sign.For further assistance, on the [employer] homepage, click on the maroon icon in the upper right-hand corner (or go to Resources?Clinical Informatics ) then click on Job Aids and Documentation_Provider_Re sponding_To_Clarification . Comments Clarification Information: Document in: Progress Notes. Prepared by: Clinical Uranium Processing Supervisor: Jodi Horvath Normal [facility] Basic Metabolic Panelon 10-05 Calcium mass conc 9.3 mg/dL Normal 8.5-10.6 [facility] Chloride molar conc 102 mmol/L Normal 98-107 [facility] CO2 molar conc 24 mmol/L Normal 21-32 [facility] Creatinine mass conc 1.06 mg/dL Normal 0.70-1.30 [facility]oun [facility] Glucose mass conc 139 mg/dL High 74-106 [facility] Potassium molar conc 3.7 mmol/L [facility] 3.5[facility] Sodium molar conc 139 mmol/L Normal 136-145 [facility] Urea nitrogen mass conc (BldV) 20 mg/dL High 7-18 [facility] Urea nitrogen/Creatinine mass ratio 19 mg/mg Normal [facility] Consultationon 10-29-2017 Consultation PDF Normal [facility] PACU I Nursingon 10-29-2017 PACU I Nursing CO NA PACU I Nursing Record Summary Primary Physician: Maya Rogers DO Finalized Date/Time: 10/29/17 15:39:49 Pt. Name: ARLETTE ALLI Shirley/Sex: 1950 Male Med Rec #: [id number] Physician: Maya Rogers DO Financial #: [id number] Pt. Type: I Room/Bed: / Admit/Disch: 10/29/17 07:19:00 - Institution: [facility] NA OR Main PACU I Case Times Entry 1 In PACU I 10/29/17 14:26:00 Ready for PACU I 10/29/17 15:00:00 Discharge Discharge from PACU 10/29/17 15:40:00 PACU I Discharge Pt./Family waiting to I Delay Reason speak w Physician Last Modified By: Anastasia Bran RN 10/29/17 15:39:47 CO NA OR Main PACU I Case Attendees Entry 1 Case Attendee Anastasia Bran RN Role Performed RN Last Modified By: Anastasia Bran RN 10/29/17 13:51:36 Finalized By: Anastasia Bran RN Document Signatures Signed By: Anastasia Bran RN 10/29/17 15:39 Normal [facility] PreOp Nursingon 10-29-2017 PreOp Nursing CO NA PreOp Nursing Record Summary Primary Physician: Maya Rogers DO Finalized Date/Time: 10/29/17 10:04:16 Pt. Name: SAVANAALLI GAMING/Sex: 1950 Male Med Rec #: [id number] Physician: Maya Rogers DO Financial #: [id number] Pt. Type: I Room/Bed: / Admit/Disch: 10/29/17 07:19:00 - Institution: CO NA OR PreOp Case Times Entry 1 PreOp Case Times In Room Time 10/29/17 07:45:00 Out Room Time 10/29/17 10:03:00 Last Modified By: Georges Cancino RN 10/29/17 10:04:15 CO NA OR PreOp Case Attendees Entry 1 Entry 2 Case Attendee Alexey EAST , Meron Cannon RN , Lisa Cee Role Performed RN RN Last Modified By: Alexey EAST , Meron Blackburn RN , Meron Westfall 10/29/17 08:02:07 10/29/17 08:02:07 Finalized By: Georges Cancino RN Document Signatures Signed By: Georges Cancino RN 10/29/17 10:04 Normal [facility] Urinalysis with Microscopic Automaticon 10-29-2017 Bilirubin Test strip mass conc (U) Negative Normal NEG [facility] Comment on above: Order Comment: urine culture already ran. only urinalysis needed when pt is able to void or staight caths. Clarity Nom (U) CLEAR Normal CLER [facility] Comment on above: Order Comment: urine culture already ran. only urinalysis needed when pt is able to void or staight caths. Color Nom (U) YELLOW Normal YEL [facility] Comment on above: Order Comment: urine culture already ran. only urinalysis needed when pt is able to void or staight caths. Epithelial cells LM.HPF #/area (Urine sed) 0-5 Normal OTO5 [facility] Comment on above: Order Comment: urine culture already ran. only urinalysis needed when pt is able to void or staight caths. Result Comment: SQUA MOUS Glucose Test strip mass conc (U) 3+ Abnormal NEG [facility] Comment on above: Order Comment: urine culture already ran. only urinalysis needed when pt is able to void or staight caths. Hemoglobin Test strip Ql (U) 1+ Abnormal NEG [facility] Comment on above: Order Comment: urine culture already ran. only urinalysis needed when pt is able to void or staight caths. Ketones mass conc (U) 2+ Abnormal NEG [facility] Comment on above: Order Comment: urine culture already ran. only urinalysis needed when pt is able to void or staight caths. Nitrite Test strip mass conc (U) Negative Normal NEG [facility] Comment on above: Order Comment: urine culture already ran. only urinalysis needed when pt is able to void or staight caths. pH Test strip (U) 5.5 [pH] Normal 5.0-7.5 [facility] Comment on above: Order Comment: urine culture already ran. only urinalysis needed when pt is able to void or staight caths. Protein mass conc (U) 1+ Abnormal NEG [facility] Comment on above: Order Comment: urine culture already ran. only urinalysis needed when pt is able to void or staight caths. RBC LM.HPF #/area (Urine sed) 10-15 Abnormal OTO5 [facility] Comment on above: Order Comment: urine culture already ran. only urinalysis needed when pt is able to void or staight caths. Specific gravity Relative Density (U) 1.025 Normal 1.005-1.030 [facility] Comment on above: Order Comment: urine culture already ran. only urinalysis needed when pt is able to void or staight caths. Urobilinogen Test strip mass conc (U) 0.2 mg/dL Normal 0.0-1.9 [facility] Comment on above: Order Comment: urine culture already ran. only urinalysis needed when pt is able to void or staight caths. WBC LM.HPF #/area (Urine sed) 5-10 Abnormal OTO5 [facility] Comment on above: Order Comment: urine culture already ran. only urinalysis needed when pt is able to void or staight caths. WBC LM.HPF #/area (Urine sed) Negative Normal NEG [facility] Comment on above: Order Comment: urine culture already ran. only urinalysis needed when pt is able to void or staight caths. No Panel Information [facility] Vital Signs Date Time Vital Sign Value Performing Clinician Lisa phelan 11-30-2024 10:36-0400 Body temperature 97.4 [degF] Dr. Donnell Mendoza MD Work Phone: [facility] 11-30-2024 10:36-0400 Diastolic blood pressure 68 mm[Hg] Dr. Donnell Mendoza MD Work Phone: [facility] 11-30-2024 10:36-0400 Heart rate 71 /min Dr. Donnell Mendoza MD Work Phone: [facility] 11-30-2024 10:36-0400 Respiratory rate 16 /min Dr. Donnell Mendoza MD Work Phone: [facility] 11-30-2024 10:36-0400 SaO2% (BldA) [Mass fraction] 98 % Dr. Donnell Mendoza MD Work Phone: [facility] 11-30-2024 10:36-0400 Systolic blood pressure 131 mm[Hg] Dr. Donnell Mendoza MD Work Phone: [facility] 11-30-2024 06:35-0400 Body height 167.[address] Donnell Mendoza MD Work Phone: [facility] 11-30-2024 06:35-0400 Body mass index (BMI) [Ratio] 31.6 kg/m2 Dr. Donnell Mendoza MD Work Phone: [facility] 11-30-2024 06:35-0400 Body weight 88.[address] Donnell Mendoza MD Work Phone: [facility] 10-04-2024 09:55-0400 Body height 167.6 cm Toby Hudson MD Work Phone: [facility] 10-04-2024 09:55-0400 Body mass index (BMI) [Ratio] 31.64 kg/m2 Toby Hudson MD Work Phone: [facility] 10-04-2024 09:55-0400 Body weight 88.91 kg Toby Hudson MD Work Phone: [facility] 10-04-2024 09:55-0400 Diastolic blood pressure 68 mm[Hg] Toby Hudson MD Work Phone: [facility] 10-04-2024 09:55-0400 Heart rate 77 /min Toby Hudson MD Work Phone: [facility] 10-04-2024 09:55-0400 SaO2% (BldA) [Mass fraction] 99 % Toby Hduson MD Work Phone: [facility] 10-04-2024 09:55-0400 Systolic blood pressure 128 mm[Hg] Toby Hudson MD Work Phone: [facility] 09-05-2024 14:34-0500 Body height 167.6 cm Alli Orona MD Work Phone: [facility] 09-05-2024 14:34-0500 Body mass index (BMI) [Ratio] 31.15 kg/m2 Alli Orona MD Work Phone: [facility] 09-05-2024 14:34-0500 Body weight 87.54 kg Alli Orona MD Work Phone: [facility] 08-17-2024 12:55-0500 Body mass index (BMI) [Ratio] 30.99 kg/m2 Alli Orona MD Work Phone: [facility] 08-17-2024 12:55-0500 Body weight 87.09 kg Alli Orona MD Work Phone: [facility] 08-17-2024 12:55-0500 Diastolic blood pressure 65 mm[Hg] Alli Orona MD Work Phone: [facility] 08-17-2024 12:55-0500 Heart rate 86 /min Alli Orona MD Work Phone: [facility] 08-17-2024 12:55-0500 Systolic blood pressure 135 mm[Hg] Alli Orona MD Work Phone: [facility] 08-03-2024 10:05-0500 Body mass index (BMI) [Ratio] 31.1 kg/m2 Dr. Donnell Mendoza MD Work Phone: [facility] 08-03-2024 10:05-0500 Body temperature 97.2 [degF] Dr. Donnell Mendoza MD Work Phone: [facility] 08-03-2024 10:05-0500 Body weight 87.[address] Donnell Mendoza MD Work Phone: [facility] 08-03-2024 10:05-0500 Diastolic blood pressure 93 mm[Hg] Dr. Donnell Mendoza MD Work Phone: [facility] 08-03-2024 10:05-0500 Heart rate 79 /min Dr. Donnell Mendoza MD Work Phone: [facility] 08-03-2024 10:05-0500 Respiratory rate 16 /min Dr. Donnell Mendoza MD Work Phone: [facility] 08-03-2024 10:05-0500 SaO2% (BldA) [Mass fraction] 97 % Dr. Donnell Mendoza MD Work Phone: [facility] 08-03-2024 10:05-0500 Systolic blood pressure 160 mm[Hg] Dr. Donnell Mendoza MD Work Phone: [facility] 08-02-2024 16:05-0500 Body height 167.6 cm Randolph Bernal MD Work Phone: [facility] 08-02-2024 16:05-0500 Body mass index (BMI) [Ratio] 30.02 kg/m2 Randolph Bernal MD Work Phone: [facility] 08-02-2024 16:05-0500 Body weight 84.37 kg Randolph Bernal MD Work Phone: [facility] 08-02-2024 16:05-0500 Diastolic blood pressure 68 mm[Hg] Randolph Bernal MD Work Phone: [facility] 08-02-2024 16:05-0500 Heart rate 70 /min Randolph Bernal MD Work Phone: [facility] 08-02-2024 16:05-0500 SaO2% (BldA) [Mass fraction] 97 % Randolph Bernal MD Work Phone: [facility] 08-02-2024 16:05-0500 Systolic blood pressure 120 mm[Hg] Randolph Bernal MD Work Phone: [facility] 05-26-2024 09:22-0500 Diastolic blood pressure 60 mm[Hg] Donnell Mendoza MD Work Phone: [facility] 05-26-2024 09:22-0500 Systolic blood pressure 120 mm[Hg] Donnell Mendoza MD Work Phone: [facility] 05-26-2024 08:51-0500 Body mass index (BMI) [Ratio] 30.02 kg/m2 Donnell Mendoza MD Work Phone: [facility] 05-26-2024 08:51-0500 Body weight 84.37 kg Donnell Mendoza MD Work Phone: [facility] 05-26-2024 08:51-0500 Heart rate 86 /min Donnell Mendoza MD Work Phone: [facility] 05-26-2024 08:51-0500 SaO2% (BldA) [Mass fraction] 98 % Donnell Mendoza MD Work Phone: [facility] 05-11-2024 08:58-0500 Body mass index (BMI) [Ratio] 30.18 kg/m2 Alli Orona MD Work Phone: [facility] 05-11-2024 08:58-0500 Body weight 84.82 kg Alli Orona MD Work Phone: [facility] 05-11-2024 08:58-0500 Diastolic blood pressure 91 mm[Hg] Alli Orona MD Work Phone: [facility] 05-11-2024 08:58-0500 Heart rate 76 /min Alli Orona MD Work Phone: [facility] 05-11-2024 08:58-0500 Systolic blood pressure 157 mm[Hg] Alli Orona MD Work Phone: [facility] 05-05-2024 08:47-0400 Body height 167.6 cm Flavia COYNE Work Phone: [facility] 05-05-2024 08:47-0400 Body mass index (BMI) [Ratio] 28.33 kg/m2 Flavia Noland EDITORIAL DIRECTOR-GO[employer] LAYER Work Phone: [facility] 05-05-2024 08:47-0400 Body weight 79.61 kg Flavia Noland EDITORIAL DIRECTOR-[employer]ER Work Phone: [facility] 05-05-2024 08:47-0400 Diastolic blood pressure 62 mm[Hg] Flavia Horannar EDITORIAL DIRECTOR-GO[employer]ER Work Phone: [facility] 05-05-2024 08:47-0400 Heart rate 72 /min Flavia Noland EDITORIAL DIRECTOR-[employer]ER Work Phone: [facility] 05-05-2024 08:47-0400 SaO2% (BldA) [Mass fraction] 97 % Flavia Noland APRN-GOODS LAYER Work Phone: [facility] 05-05-2024 08:47-0400 Systolic blood pressure 118 mm[Hg] Flavia Ekaterina EDITORIAL DIRECTOR-GO[employer] LAYER Work Phone: [facility] 05-03-2024 18:57-0400 Diastolic blood pressure 82 mm[Hg] Leonid Anaya DO Work Phone: [facility] 05-03-2024 18:57-0400 Heart rate 65 /min Leonid Anaya DO Work Phone: [facility] 05-03-2024 18:57-0400 Respiratory rate 17 /min Leondi Anaya DO Work Phone: [facility] 05-03-2024 18:57-0400 SaO2% (BldA) [Mass fraction] 97 % Leonid Anaya DO Work Phone: [facility] 05-03-2024 18:57-0400 Systolic blood pressure 159 mm[Hg] Leonid Lemasters DO Work Phone: [facility] 05-03-2024 16:27-0400 Body height 167.6 cm Leonid Anaya DO Work Phone: [facility] 05-03-2024 16:27-0400 Body mass index (BMI) [Ratio] 28.25 kg/m2 Leonid Anaya DO Work Phone: [facility] 05-03-2024 16:27-0400 Body temperature 98.01 [degF] Leonid Anaya DO Work Phone: [facility] 05-03-2024 16:27-0400 Body weight 79.38 kg Leonid Anaya DO Work Phone: [facility] 05-03-2024 11:33-0400 Body temperature 97.9 [degF] Randolph Bernal MD Work Phone: [facility] 05-03-2024 11:33-0400 Diastolic blood pressure 68 mm[Hg] Randolph Bernal MD Work Phone: [facility] 05-03-2024 11:33-0400 Heart rate 60 /min Randolph Bernal MD Work Phone: [facility] 05-03-2024 11:33-0400 SaO2% (BldA) [Mass fraction] 94 % Randolph Bernal MD Work Phone: [facility] 05-03-2024 11:33-0400 Systolic blood pressure 135 mm[Hg] Randolph Bernal MD Work Phone: [facility] 05-03-2024 07:53-0400 Respiratory rate 18 /min Randolph Bernal MD Work Phone: [facility] 05-02-2024 13:46-0400 Body height 167.6 cm Randolph Bernal MD Work Phone: [facility] 05-02-2024 13:46-0400 Body mass index (BMI) [Ratio] 28.82 kg/m2 Randolph Bernal MD Work Phone: [facility] 05-02-2024 13:46-0400 Body weight 81 kg Randolph Bernal MD Work Phone: [facility] 04-04-2024 14:42-0400 Body height 167.6 cm Toby Hudson MD Work Phone: [facility] 04-04-2024 14:42-0400 Body mass index (BMI) [Ratio] 29.42 kg/m2 Toby Hudson MD Work Phone: [facility] 04-04-2024 14:42-0400 Body temperature 97.7 [degF] Toby Hudson MD Work Phone: [facility] 04-04-2024 14:42-0400 Body weight 82.69 kg Toby Hudson MD Work Phone: [facility] 04-04-2024 14:42-0400 Diastolic blood pressure 64 mm[Hg] Toby Hudson MD Work Phone: [facility] 04-04-2024 14:42-0400 Heart rate 64 /min Toby Hudson MD Work Phone: [facility] 04-04-2024 14:42-0400 SaO2% (BldA) [Mass fraction] 99 % Toby Hudson MD Work Phone: [facility] 04-04-2024 14:42-0400 Systolic blood pressure 162 mm[Hg] Toby Hudson MD Work Phone: [facility] 03-29-2024 15:21-0400 Body height 167.6 cm Nusrat Grissom MD Work Phone: [facility] 03-29-2024 15:21-0400 Body mass index (BMI) [Ratio] 27.28 kg/m2 Nusrat Grissom MD Work Phone: [facility] 03-29-2024 15:21-0400 Body temperature 96.8 [degF] Nusrat Grissom MD Work Phone: [facility] 03-29-2024 15:21-0400 Body weight 76.66 kg Nusrat Grissom MD Work Phone: [facility] 03-29-2024 15:21-0400 Diastolic blood pressure 67 mm[Hg] Nusrat Grissom MD Work Phone: [facility] 03-29-2024 15:21-0400 Heart rate 38 /min Nusrat Grissom MD Work Phone: [facility] 03-29-2024 15:21-0400 SaO2% (BldA) [Mass fraction] 98 % Nusrat Grissom MD Work Phone: [facility] 03-29-2024 15:21-0400 Systolic blood pressure 187 mm[Hg] Nusrat Grissom MD Work Phone: [facility] 03-25-2024 12:40-0400 Diastolic blood pressure 66 mm[Hg] Toby Hudson MD Work Phone: [facility] 03-25-2024 12:40-0400 Heart rate 59 /min Toby Hudson MD Work Phone: [facility] 03-25-2024 12:40-0400 Respiratory rate 18 /min Toby Hudson MD Work Phone: [facility] 03-25-2024 12:40-0400 SaO2% (BldA) [Mass fraction] 100 % Toby Hudson MD Work Phone: [facility] 03-25-2024 12:40-0400 Systolic blood pressure 107 mm[Hg] Toby Hudson MD Work Phone: [facility] 03-25-2024 08:11-0400 Body mass index (BMI) [Ratio] 28.79 kg/m2 oTby Hudson MD Work Phone: [facility] 03-25-2024 08:11-0400 Body temperature 97.7 [degF] Toby Hudson MD Work Phone: [facility] 03-25-2024 08:11-0400 Body weight 80.9 kg Toby Hudson MD Work Phone: [facility] 03-16-2024 12:16-0400 Body height 167.6 cm [facility] 1 [facility] 03-16-2024 12:16-0400 Body mass index (BMI) [Ratio] 29.7 kg/m2 [facility] 03-16-2024 12:16-0400 Body weight 83.46 kg [facility] 1 [facility] 03-16-2024 12:16-0400 Diastolic blood pressure 60 mm[Hg] [facility] 03-16-2024 12:16-0400 Heart rate 42 /min [facility] 03-16-2024 12:16-0400 Respiratory rate 20 /min [facility] 03-16-2024 12:16-0400 SaO2% (BldA) [Mass fraction] 97 % [facility] 03-16-2024 12:16-0400 Systolic blood pressure 147 mm[Hg] [facility] 03-15-2024 09:36-0400 Body height 167.6 cm Randolph Bernal MD Work Phone: [facility] 03-15-2024 09:36-0400 Body mass index (BMI) [Ratio] 29.8 kg/m2 Randolph Bernal MD Work Phone: [facility] 03-15-2024 09:36-0400 Body weight 83.73 kg Randolph Bernal MD Work Phone: [facility] 03-15-2024 09:36-0400 Diastolic blood pressure 64 mm[Hg] Randolph Bernal MD Work Phone: [facility] 03-15-2024 09:36-0400 Heart rate 38 /min Randolph Bernal MD Work Phone: [facility] 03-15-2024 09:36-0400 SaO2% (BldA) [Mass fraction] 95 % Randolph Bernal MD Work Phone: [facility] 03-15-2024 09:36-0400 Systolic blood pressure 130 mm[Hg] Randolph Bernal MD Work Phone: [facility] 02-26-2024 11:01-0400 Body height 167.6 cm Toby Hudson MD Work Phone: [facility] 02-26-2024 11:01-0400 Body mass index (BMI) [Ratio] 29.05 kg/m2 Toby Hudson MD Work Phone: [facility] 02-26-2024 11:01-0400 Body weight 81.65 kg Toby Hudson MD Work Phone: [facility] 02-26-2024 11:01-0400 Diastolic blood pressure 66 mm[Hg] Toby Hudson MD Work Phone: [facility] 02-26-2024 11:01-0400 Heart rate 39 /min Toby Hudson MD Work Phone: [facility] 02-26-2024 11:01-0400 SaO2% (BldA) [Mass fraction] 96 % Toby Hudson MD Work Phone: [facility] 02-26-2024 11:01-0400 Systolic blood pressure 134 mm[Hg] Toby Hudson MD Work Phone: [facility] 02-19-2024 10:02-0400 Body height 168 cm Segundo Malloy MD MPH Work Phone: [facility] 02-19-2024 10:02-0400 Body mass index (BMI) [Ratio] 29.04 kg/m2 Segundo Malloy MD MPH Work Phone: [facility] 02-19-2024 10:02-0400 Body weight 81.97 kg Segundo Malloy MD MPH Work Phone: [facility] 02-19-2024 10:02-0400 Diastolic blood pressure 68 mm[Hg] Segundo Malloy MD MPH Work Phone: [facility] 02-19-2024 10:02-0400 Heart rate 42 /min Segundo Malloy MD MPH Work Phone: [facility] 02-19-2024 10:02-0400 SaO2% (BldA) [Mass fraction] 98 % Segundo Malloy MD MPH Work Phone: [facility] 02-19-2024 10:02-0400 Systolic blood pressure 132 mm[Hg] Segundo Malloy MD MPH Work Phone: [facility] 02-10-2024 15:39-0400 Body mass index (BMI) [Ratio] 29.09 kg/m2 Alli Orona MD Work Phone: [facility] 02-10-2024 15:39-0400 Body weight 82.1 kg Alli Orona MD Work Phone: [facility] 02-10-2024 15:39-0400 Diastolic blood pressure 80 mm[Hg] Alli Orona MD Work Phone: [facility] 02-10-2024 15:39-0400 Respiratory rate 16 /min Alli Orona MD Work Phone: [facility] 02-10-2024 15:39-0400 Systolic blood pressure 138 mm[Hg] lAli Orona MD Work Phone: [facility] 01-20-2024 11:02-0400 Body mass index (BMI) [Ratio] 28.45 kg/m2 Alli Orona MD Work Phone: [facility] 01-20-2024 11:02-0400 Body weight 80.29 kg Alli Orona MD Work Phone: [facility] 01-20-2024 11:02-0400 Diastolic blood pressure 82 mm[Hg] Alli Orona MD Work Phone: [facility] 01-20-2024 11:02-0400 Respiratory rate 16 /min Alli Orona MD Work Phone: [facility] 01-20-2024 11:02-0400 Systolic blood pressure 142 mm[Hg] Alli Orona MD Work Phone: [facility] 12-29-2023 08:39-0400 Body temperature 97.5 [degF] Alli Orona MD Work Phone: 9(322)[phone] [place] [address] 12-29-2023 08:39-0400 Diastolic blood pressure 75 mm[Hg] Alli Orona MD Work Phone: 6(793)118-668912 [place] [address] 12-29-2023 08:39-0400 Heart rate 56 /min Alli Orona MD Work Phone: 9(691)361-839612 [place] [address] 12-29-2023 08:39-0400 Respiratory rate 16 /min Alli Orona MD Work Phone: 3(701)402-444712 [place] [address] 12-29-2023 08:39-0400 SaO2% (BldA) [Mass fraction] 98 % Alli Orona MD Work Phone: 3(990)071-635012 [place] [address] 12-29-2023 08:39-0400 Systolic blood pressure 128 mm[Hg] Alli Orona MD Work Phone: [facility] 12-29-2023 06:17-0400 Body height 168 cm Alli Orona MD Work Phone: 9(951)531-366812 [place] [address] 12-29-2023 06:17-0400 Body mass index (BMI) [Ratio] 27.88 kg/m2 Alli Orona MD Work Phone: 6(446)030-332912 [place] [address] 12-29-2023 06:17-0400 Body weight 78.7 kg Alli Orona MD Work Phone: 2(033)506-112912 [place] [address] 12-18-2023 09:24-0400 Body height 167.6 cm Segundo Malloy MD MPH Work Phone: [facility] 12-18-2023 09:24-0400 Body mass index (BMI) [Ratio] 28.33 kg/m2 Segundo Malloy MD MPH Work Phone: [facility] 12-18-2023 09:24-0400 Body weight 79.61 kg Segundo Malloy MD MPH Work Phone: [facility] 12-18-2023 09:24-0400 Diastolic blood pressure 60 mm[Hg] Segundo Malloy MD MPH Work Phone: [facility] 12-18-2023 09:24-0400 Heart rate 65 /min Segundo Malloy MD MPH Work Phone: [facility] 12-18-2023 09:24-0400 SaO2% (BldA) [Mass fraction] 95 % Segundo Malloy MD MPH Work Phone: [facility] 12-18-2023 09:24-0400 Systolic blood pressure 105 mm[Hg] Segundo Malloy MD MPH Work Phone: [facility] 12-09-2023 14:33-0400 Body mass index (BMI) [Ratio] 28.41 kg/m2 Alli Orona MD Work Phone: [facility] 12-09-2023 14:33-0400 Body weight 79.83 kg Alli Orona MD Work Phone: [facility] 12-09-2023 14:33-0400 Respiratory rate 16 /min Alli Orona MD Work Phone: [facility] 11-18-2023 08:37-0400 Body mass index (BMI) [Ratio] 28.08 kg/m2 Alli Orona MD Work Phone: [facility] 11-18-2023 08:37-0400 Body weight 78.93 kg Alli Orona MD Work Phone: [facility] 11-18-2023 08:37-0400 Respiratory rate 16 /min Alli Orona MD Work Phone: [facility] 11-03-2023 15:10-0400 Diastolic blood pressure 71 mm[Hg] Casimiro Thomae DO Work Phone: [facility] 11-03-2023 15:10-0400 Heart rate 59 /min Casimiro Thomae DO Work Phone: [facility] 11-03-2023 15:10-0400 Respiratory rate 18 /min Casimiro Thomae DO Work Phone: [facility] 11-03-2023 15:10-0400 SaO2% (BldA) [Mass fraction] 97 % Casimiro Thomae DO Work Phone: [facility] 11-03-2023 15:10-0400 Systolic blood pressure 125 mm[Hg] Casimiro Thomae DO Work Phone: [facility] 11-03-2023 14:25-0400 Body temperature 97.5 [degF] Casimiro Thomae DO Work Phone: [facility] 11-03-2023 13:24-0400 Body height 167.6 cm Casimiro Thomae DO Work Phone: [facility] 11-03-2023 13:24-0400 Body mass index (BMI) [Ratio] 28.41 kg/m2 Casimiro Thomae DO Work Phone: [facility] 11-03-2023 13:24-0400 Body weight 79.83 kg Casimiro Thomae DO Work Phone: [facility] 10-20-2023 08:17-0400 Body height 168.3 cm Chris Crane MD Work Phone: [facility] 10-20-2023 08:17-0400 Body mass index (BMI) [Ratio] 29.15 kg/m2 Chris Crane MD Work Phone: [facility] 10-20-2023 08:17-0400 Body weight 82.56 kg Chris Crane MD Work Phone: [facility] 10-20-2023 08:17-0400 Diastolic blood pressure 62 mm[Hg] Chris Crane MD Work Phone: [facility] 10-20-2023 08:17-0400 Heart rate 58 /min Chris Crane MD Work Phone: [facility] 10-20-2023 08:17-0400 SaO2% (BldA) [Mass fraction] 99 % Chris Crane MD Work Phone: [facility] 10-20-2023 08:17-0400 Systolic blood pressure 134 mm[Hg] Chris Crane MD Work Phone: [facility] 05-20-2023 09:08-0500 Body mass index (BMI) [Ratio] 27.1 kg/m2 Alli Orona MD Work Phone: [facility] 05-20-2023 09:08-0500 Body weight 78.47 kg Alli Orona MD Work Phone: [facility] 05-20-2023 09:08-0500 Respiratory rate 16 /min Alli Orona MD Work Phone: [facility] 10-09-2022 12:59-0400 Diastolic blood pressure 82 mm[Hg] Segundo Nag S Mallapareddi Work Phone: [facility] Work Phone: 10-09-2022 12:59-0400 Heart rate 75 /min Segundo Nag S Mallapareddi Work Phone: [facility] Work Phone: 10-09-2022 12:59-0400 Systolic blood pressure 122 mm[Hg] Segundo Nag S Mallapareddi Work Phone: [facility] Work Phone: 10-08-2022 09:22-0400 Body mass index (BMI) [Ratio] 29.29 kg/m2 Segundo Nag S Mallapareddi Work Phone: [facility]Spsbiyh[facility]Yhldos[facility] Work Phone: 10-08-2022 09:22-0400 Body surface area Derived from formula 1.97 m2 Segundo Nag S Mallapareddi Work Phone: MF-Agbqzzr-Ckdnrra Work Phone: 10-08-2022 09:22-0400 Body weight 84.82 kg Segundo Nag S Mallapareddi Work Phone: GU-Yfgixdy-Fccsjei Work Phone: 10-08-2022 09:22-0400 Diastolic blood pressure 68 mm[Hg] Segundo Nag S Mallapareddi Work Phone: ST-Itekjyf-Bpfegvx Work Phone: 10-08-2022 09:22-0400 Heart rate 86 /min Segundo Arron S Mallapareddi Work Phone: FQ-Wvexdmh-Swqscxs Work Phone: 10-08-2022 09:22-0400 Systolic blood pressure 129 mm[Hg] Segundo Heller S Mallapareddi Work Phone: YA-Baelgqd-Rmnchvy Work Phone: 09-12-2022 09:46-0500 Body height 170.2 cm Segundo Malloy MD MPH Work Phone: [facility] 09-12-2022 09:46-0500 Body mass index (BMI) [Ratio] 29.4 kg/m2 Segundo Malloy MD MPH Work Phone: [facility] 09-12-2022 09:46-0500 Body weight 85.14 kg Segundo Malloy MD MPH Work Phone: [facility] 09-12-2022 09:46-0500 Diastolic blood pressure 94 mm[Hg] Segundo Malloy MD MPH Work Phone: [facility] 09-12-2022 09:46-0500 Heart rate 69 /min Segundo Malloy MD MPH Work Phone: [facility] 09-12-2022 09:46-0500 SaO2% (BldA) [Mass fraction] 99 % Segundo Malloy MD MPH Work Phone: [facility] 09-12-2022 09:46-0500 Systolic blood pressure 158 mm[Hg] Segundo Malloy MD MPH Work Phone: [facility] 09-10-2022 08:33-0500 Body mass index (BMI) [Ratio] 29.13 kg/m2 Segundo Nag S Mallapareddi Work Phone: UU-Vefgasg-Yuykprr Work Phone: 09-10-2022 08:33-0500 Body surface area Derived from formula 1.96 m2 Segundo Nag S Mallapareddi Work Phone: AK-Spdgwjk-Boagbkg Work Phone: 09-10-2022 08:33-0500 Body weight 84.37 kg Segundo Nag S Mallapareddi Work Phone: TJ-Sqykidv-Eulbmkm Work Phone: 09-10-2022 08:33-0500 Diastolic blood pressure 89 mm[Hg] Segundo Nag S Mallapareddi Work Phone: WW-Djxzixe-Ulvmqmh Work Phone: 09-10-2022 08:33-0500 Heart rate 93 /min Segundo Nag S Mallapareddi Work Phone: ME-Fpqhdhf-Bjscvax Work Phone: 09-10-2022 08:33-0500 Systolic blood pressure 150 mm[Hg] Segundo Nag S Mallapareddi Work Phone: CJ-Ljqaqsl-Ryfqyly Work Phone: 05-05-2022 16:11-0400 Body height 170.18 cm Segundo Nag S Mallapareddi Work Phone: [facility] Work Phone: 05-05-2022 16:11-0400 Body mass index (BMI) [Ratio] 32.26 kg/m2 Segundo Nag S Mallapareddi Work Phone: [facility] Work Phone: 05-05-2022 16:11-0400 Body surface area Derived from formula 2.05 m2 Segundo Nag S Mallapareddi Work Phone: [facility] Work Phone: 05-05-2022 16:11-0400 Body temperature 98.4 [degF] Segundo Nag S Mallapareddi Work Phone: [facility] Work Phone: 05-05-2022 16:11-0400 Body weight 93.44 kg Segundo Nag S Mallapareddi Work Phone: [facility] Work Phone: 05-05-2022 16:11-0400 Diastolic blood pressure 72 mm[Hg] Segundo Nag S Mallapareddi Work Phone: [facility] Work Phone: 05-05-2022 16:11-0400 Heart rate 72 /min Segundo Nag S Mallapareddi Work Phone: [facility] Work Phone: 05-05-2022 16:11-0400 Systolic blood pressure 118 mm[Hg] Segundo Nag S Mallapareddi Work Phone: [facility] Work Phone: 03-24-2022 11:11-0400 Body height 170.18 cm Segundo Nag S Mallapareddi Work Phone: CY-Kxazclr-Duyjpwp d HC 232 DO Work Phone: 03-24-2022 11:11-0400 Body mass index (BMI) [Ratio] 34.46 kg/m2 Segundo Nag S Mallapareddi Work Phone: GY-Supptmh-Upkkaxt d HC 232 DO Work Phone: 03-24-2022 11:11-0400 Body surface area Derived from formula 2.11 m2 Segundo Nag S Mallapareddi Work Phone: ZP-Mpcpnnj-Ebvewji d HC 232 DO Work Phone: 03-24-2022 11:11-0400 Body weight 99.79 kg Segundo Nag S Mallapareddi Work Phone: JJ-Ldovmqh-Bcmlsmq d HC 232 DO Work Phone: 03-24-2022 11:11-0400 Diastolic blood pressure 79 mm[Hg] Segundo Nag S Mallapareddi Work Phone: ZQ-Yavdrpd-Cqaskxk d HC 232 DO Work Phone: 03-24-2022 11:11-0400 Heart rate 70 /min Segundo Nag S Mallapareddi Work Phone: WU-Wkayzln-Lxmqxmg d HC 232 DO Work Phone: 03-24-2022 11:11-0400 Systolic blood pressure 139 mm[Hg] Segundo Nag S Mallapareddi Work Phone: PI-Offhgml-Glguvko d HC 232 DO Work Phone: 03-19-2022 09:34-0400 Body height 170.18 cm Segundo Nag S Mallapareddi Work Phone: [facility] Work Phone: 03-19-2022 09:34-0400 Body mass index (BMI) [Ratio] 34.05 kg/m2 Segundo Nag S Mallapareddi Work Phone: [facility] Work Phone: 03-19-2022 09:34-0400 Body surface area Derived from formula 2.09 m2 Segundo Nag S Mallapareddi Work Phone: [facility] Work Phone: 03-19-2022 09:34-0400 Body weight 98.6 kg Segundo Nag S Mallapareddi Work Phone: [facility] Work Phone: 03-19-2022 09:34-0400 Diastolic blood pressure 94 mm[Hg] Segundo Nag S Mallapareddi Work Phone: [facility] Work Phone: 03-19-2022 09:34-0400 Heart rate 64 /min Segundo Nag S Mallapareddi Work Phone: [facility] Work Phone: 03-19-2022 09:34-0400 Systolic blood pressure 142 mm[Hg] Segundo Nag S Mallapareddi Work Phone: [facility] Work Phone: 12-11-2021 08:40-0400 Body height 170.18 cm Segundo Nag S Mallapareddi Work Phone: [facility] Work Phone: 12-11-2021 08:40-0400 Body mass index (BMI) [Ratio] 38.09 kg/m2 Segundo Nag S Mallapareddi Work Phone: [facility] Work Phone: 12-11-2021 08:40-0400 Body surface area Derived from formula 2.2 m2 Segundo Nag S Mallapareddi Work Phone: [facility] Work Phone: 12-11-2021 08:40-0400 Body weight 110.31 kg Segundo Nag S Mallapareddi Work Phone: [facility] Work Phone: 12-11-2021 08:40-0400 Diastolic blood pressure 78 mm[Hg] Segundo Nag S Mallapareddi Work Phone: [facility] Work Phone: 12-11-2021 08:40-0400 Heart rate 92 /min Segundo Nag S Mallapareddi Work Phone: [facility] Work Phone: 12-11-2021 08:40-0400 Systolic blood pressure 130 mm[Hg] Segundo Nag S Mallapareddi Work Phone: [facility] Work Phone: 10-09-2021 09:04-0400 Body height 170.18 cm Segundo Nag S Mallapareddi Work Phone: [facility] Work Phone: 10-09-2021 09:04-0400 Body mass index (BMI) [Ratio] 43.38 kg/m2 Segundo Nag S Mallapareddi Work Phone: [facility] Work Phone: 10-09-2021 09:04-0400 Body surface area Derived from formula 2.32 m2 Segundo Nag S Mallapareddi Work Phone: [facility] Work Phone: 10-09-2021 09:04-0400 Body weight 125.65 kg Segundo Nag S Mallapareddi Work Phone: [facility] Work Phone: 10-09-2021 09:04-0400 Respiratory rate 18 /min Segundo Nag S Mallapareddi Work Phone: [facility] Work Phone: 09-10-2021 09:26-0500 Body height 170.18 cm Segundo Nag S Mallapareddi Work Phone: [facility] Work Phone: 09-10-2021 09:26-0500 Body mass index (BMI) [Ratio] 43.41 kg/m2 Segundo Nag S Mallapareddi Work Phone: [facility] Work Phone: 09-10-2021 09:26-0500 Body surface area Derived from formula 2.32 m2 Segundo Nag S Mallapareddi Work Phone: [facility] Work Phone: 09-10-2021 09:26-0500 Body weight 125.73 kg Segundo Nag S Mallapareddi Work Phone: [facility] Work Phone: 09-10-2021 09:26-0500 Diastolic blood pressure 80 mm[Hg] Segundo Nag S Mallapareddi Work Phone: [facility] Work Phone: 09-10-2021 09:26-0500 Heart rate 92 /min Segundo Nag S Mallapareddi Work Phone: [facility] Work Phone: 09-10-2021 09:26-0500 Systolic blood pressure 142 mm[Hg] Segundo Nag S Mallapareddi Work Phone: [facility] Work Phone: 03-12-2021 09:28-0400 Body height 170.18 cm Segundo Nag S Mallapareddi Work Phone: [facility] Work Phone: 03-12-2021 09:28-0400 Body mass index (BMI) [Ratio] 42.14 kg/m2 Segundo Nag S Mallapareddi Work Phone: [facility] Work Phone: 03-12-2021 09:28-0400 Body surface area Derived from formula 2.29 m2 Segundo Nag S Mallapareddi Work Phone: [facility] Work Phone: 03-12-2021 09:28-0400 Body weight 122.04 kg Segundo Nag S Mallapareddi Work Phone: [facility] Work Phone: 03-12-2021 09:28-0400 Diastolic blood pressure 86 mm[Hg] Segundo Nag S Mallapareddi Work Phone: [facility] Work Phone: 03-12-2021 09:28-0400 Heart rate 76 /min Segundo Nag S Mallapareddi Work Phone: [facility] Work Phone: 03-12-2021 09:28-0400 Systolic blood pressure 130 mm[Hg] Segundo Nag S Mallapareddi Work Phone: [facility] Work Phone: 12-07-2020 09:22-0400 Body height 170.18 cm Segundo Nag S Mallapareddi Work Phone: [facility] Work Phone: 12-07-2020 09:22-0400 Body mass index (BMI) [Ratio] 42.69 kg/m2 Segundo Nag S Mallapareddi Work Phone: [facility] Work Phone: 12-07-2020 09:22-0400 Body surface area Derived from formula 2.31 m2 Segundo Nag S Mallapareddi Work Phone: [facility] Work Phone: 12-07-2020 09:22-0400 Body weight 123.63 kg Segundo Nag S Mallapareddi Work Phone: [facility] Work Phone: 12-07-2020 09:22-0400 Diastolic blood pressure 88 mm[Hg] Segundo Nag S Mallapareddi Work Phone: [facility] Work Phone: 12-07-2020 09:22-0400 Heart rate 72 /min Segundo Louise Mallapareddi Work Phone: [facility] Work Phone: 12-07-2020 09:22-0400 Systolic blood pressure 140 mm[Hg] Segundo Louise Mallapareddi Work Phone: [facility] Work Phone: 02-22-2020 19:02-0400 BMI (Body Mass Index) 42.43 kg/m2 Alli Krausek II [facility] Work Phone: 02-22-2020 19:02-0400 Body weight 122.88 kg Alli Krausek II [facility] Work Phone: 02-22-2020 19:02-0400 BP Diastolic 80 mm[Hg] Alli Krausek II [facility] Work Phone: 02-22-2020 19:02-0400 BP Systolic 129 mm[Hg] Alli Krausek II [facility] Work Phone: 02-22-2020 19:02-0400 BSA (Body Surface Area) 2.3 m2 Alli Krausek II [facility] Work Phone: 02-22-2020 19:02-0400 Height 170.18 cm Alli Krausek II [facility] Work Phone: 02-22-2020 19:02-0400 Pulse (Heart Rate) 103 /min Alli Krausek II [facility] Work Phone: 02-01-2020 17:46-0400 BMI (Body Mass Index) 41.82 kg/m2 Alli Krausek II [facility] Work Phone: 02-01-2020 17:46-0400 Body weight 121.11 kg Alli Krausek II [facility] Work Phone: 02-01-2020 17:46-0400 BP Diastolic 78 mm[Hg] Alli Krausek II [facility] Work Phone: Comment on above: Location: [facility]02-01-2020 17:46-0400 BP Systolic 128 mm[Hg] [facility] Guzm[facility] Work Phone: Comment on above: Location: [facility] [place]02-01-2020 17:46-0400 BSA (Body Surface Area) 2.29 m2 Alli Orona II, [facility] Work Phone: 02-01-2020 17:46-0400 Height 170.18 cm Alli Guzmán [facility] y Practice Work Phone: 02-01-2020 17:46-0400 Pulse (Heart Rate) 80 /min Alli Zamorano [facility] Work Phone: 01-04-2020 12:50-0400 BMI (Body Mass Index) 41.51 kg/m2 [facility] 01-04-2020 12:50-0400 Body weight 123.83 kg [facility] 01-04-2020 12:50-0400 BP Diastolic 74 mm[Hg] [facility] 01-04-2020 12:50-0400 BP Systolic 137 mm[Hg] [facility] 01-04-2020 12:50-0400 Height 172.7 cm [facility] 01-04-2020 12:50-0400 Pulse (Heart Rate) 77 /min [facility] 01-04-2020 12:50-0400 Pulse Oximetry 96 % [facility] 01-04-2020 12:50-0400 Respiratory Rate 16 /min [facility] 12-28-2019 17:07-0400 BMI (Body Mass Index) 42.91 kg/m2 Alli Orona II [facility] Work Phone: 12-28-2019 17:07-0400 Body weight 124.29 kg Alli Orona II [facility] Work Phone: 12-28-2019 17:07-0400 BP Diastolic 82 mm[Hg] Alli Krausek II [facility] Work Phone: 12-28-2019 17:07-0400 BP Systolic 136 mm[Hg] Alli Krausek II [facility] Work Phone: 12-28-2019 17:07-0400 BSA (Body Surface Area) 2.31 m2 Alli Krausek II [facility] Work Phone: 12-28-2019 17:07-0400 Height 170.18 cm Alli Krausek II [facility] Work Phone: 12-28-2019 17:07-0400 Pulse (Heart Rate) 70 /min Alli Krausek II [facility] Work Phone: Comment on above: Quality: Regular Encounters Encounter Date Encounter Type Care Provider Facility Start: 11-30-2024 End: 11-30-2024 Admission to same day surgery center Dr. Cheko Bhatia MD -[facility] Start: 11-30-2024 End: 11-30-[address] Donnell Mendoza MD Work Phone: [facility] Work Phone: Start: 11-29-2024 End: 11-29-2024 Subsequent hospital visit by physician Batsheva Bernal [facility] Comment on above: Arrived Start: 11-29-2024 End: 11-29-2024 ambulatory RANDOLPH [facility] Start: 11-24-2024 End: 11-24-2024 ambulatory DONNELL Coronado [facility] Ambulatory Start: 10-04-2024 End: 10-04-2024 Office outpatient visit 40 minutes Toby Hudson MD Work Phone: [facility] Comment on above: Sick sinus syndrome (Multi) (Primary Dx); S/P placement of cardiac pacemaker; Cardiac pacemaker in situ; Coronary artery disease involving [place] coronary artery of [place] heart with other form of angina pectoris; Atherosclerosis of [place] coronary artery of [place] heart without angina pectoris; H/O syncope; Essential hypertension; High cholesterol; Mild cardiomegaly; Sinus bradycardia; Cerebrovascular accident (CVA), unspecified mechanism (Multi); CAD (coronary artery disease) Start: 10-04-2024 End: 10-04-2024 [facility] Start: 09-05-2024 End: 09-05-2024 Patient encounter procedure Alli Orona MD Work Phone: [facility] Comment on above: Prostate cancer (Mul ti) (Primary Dx); Urinary frequency Start: 09-05-2024 End: 09-05-2024 ambulatory [facility] Ambulatory Start: 08-30-2024 End: 08-30-2024 ambulatory [facility] Start: 08-30-2024 End: 08-30-2024 Subsequent hospital visit by physician Derrick [facility] 3 Device Remote [facility] Building 3 Comment on above: Sick sinus syndrome (Multi); Cardiac pacemaker in situ Start: 08-17-2024 End: 08-17-2024 Office outpatient visit 25 minutes Alli Orona MD Work Phone: [facility] Comment on above: Prostate cancer (Mul ti); Erectile dysfunction of organic origin; Elevated PSA; Nocturia Start: 08-17-2024 End: 08-17-2024 ambulatory [facility] Amb[facility] Start: 08-15-2024 End: 08-15-2024 Subsequent hospital visit by physician Batsheva Viveros 1 [facility] Comment on above: Malignant neoplasm o f prostate (Multi) Start: 08-15-2024 End: 08-15-2024 ambulatory LINN [facility] Start: 08-03-2024 End: 08-03-[address] [facility] Work Phone: Start: 08-03-2024 End: 08-03-2024 ambulatory Alli Orona II Facility:[facility] Start: 08-02-2024 End: 08-02-2024 Office outpatient visit 25 minutes Randolph Bernal MD Work Phone: [facility] Comment on above: Essential hypertensi on (Primary Dx); S/P placement of cardiac pacemaker; CAD (coronary artery disease); Pacemaker Start: 08-02-2024 End: 08-02-2024 ambulatory [facility] Ambulatory Start: 08-01-2024 ambulatory Donnell Mendoza Facility: [facility] Start: 07-27-2024 End: 07-27-2024 Office outpatient visit 25 minutes Alli Orona MD Work Phone: [facility] Comment on above: Prostate cancer (Mul ti); Erectile dysfunction of organic origin; Nocturia Start: 07-27-2024 End: 07-27-2024 [facility] Start: 07-25-2024 End: 07-25-2024 ambulatory DONNELL Coronado REJI [facility] Start: 07-25-2024 End: 07-25-2024 ambulatory DELILAH CHRISTIAN Facility:[facility] Start: 07-25-2024 End: 07-25-2024 Patient encounter procedure Delilah Christian MD Work Phone: Ophthalmology Comment on above: Glaucoma suspect of both eyes (Primary Dx); 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; Optic cupping of both eyes; Combined form of senile cataract of both eyes; Essential hypertension; Pacemaker; Arthritis Start: 07-24-2024 End: 07-25-2024 E-mail encounter from caregiver Delilah Christian MD Work Phone: Ophthalmology Start: 07-24-2024 End: 07-25-2024 Patient encounter procedure Delilah Christian MD Work Phone: Ophthalmology Comment on above: Appointment Request Start: 05-31-2024 End: 05-31-2024 Subsequent hospital visit by physician Batsheva Bern[facility] Comment on above: S/P placement of car diac pacemaker Start: 05-31-2024 End: 05-31-2024 ambulatory [facility] Start: 05-26-2024 End: 05-26-2024 Office outpatient visit 25 minutes Donnell Mendoza MD Work Phone: [facility] Comment on above: Essential hypertensi on (Primary Dx); HTN (hypertension), benign; Vitamin B12 deficiency; Type 2 diabetes mellitus with diabetic polyneuropathy, without long-term current use of insulin Start: 05-26-2024 End: 05-26-2024 ambulatory [facility] Ambulatory Start: 05-17-2024 End: 05-17-2024 ambulatory [place] Start: 05-11-2024 End: 05-11-2024 ambulatory MAX MCCANN II Facility:[facility] Start: 05-11-2024 End: 05-11-2024 Patient encounter procedure Max Mccann OD Work Phone: Optometry Comment on above: Posterior vitreous d etachment of left eye (Primary Dx); Floater, vitreous, left Start: 05-11-2024 End: 05-11-2024 Office outpatient visit 15 minutes Alli Orona MD Work Phone: [facility] Comment on above: Prostate cancer (Mul ti); Erectile dysfunction of organic origin; Nocturia Start: 05-11-2024 End: 05-11-2024 ambulatory ALLI [facility] Ambulatory Start: 05-09-2024 End: 05-09-2024 ambulatory [facility] Ambulatory Start: 05-05-2024 End: 05-05-2024 Office outpatient visit 40 minutes Flavia CYONE Work Phone: [facility] Comment on above: S/P placement of car diac pacemaker Start: 05-05-2024 End: 05-05-2024 ambulatory [facility] Ambulatory Start: 05-04-2024 End: 05-04-2024 Subsequent hospital visit by physician Derrick [facility] 3 Device Remote [facility] Building 3 Comment on above: Sick sinus syndrome (Multi); Cardiac pacemaker in situ Start: 05-04-2024 End: 05-04-2024 ambulatory RANDOLPH [facility] Start: 05-03-2024 End: 05-04-2024 ambulatory LEONID Reyes [facility] Start: 05-03-2024 End: 05-03-2024 Subsequent hospital visit by physician Batsheva Aleman [employer] [facility] Comment on above: Arrived Start: 05-03-2024 End: 05-04-2024 ambulatory LEONID ANAYA [facility] Start: 05-03-2024 End: 05-03-2024 Subsequent hospital visit by physician Batsheva Aleman [employer] [facility] Comment on above: Arrived Start: 05-03-2024 End: 05-03-2024 Emergency department patient visit Leonid Anaya DO Work Phone: [facility] Comment on above: Chest pain, unspecif ied type (Primary Dx); S/P placement of cardiac pacemaker Start: 05-02-2024 End: 05-03-2024 ambulatory [facility] Start: 05-02-2024 End: 05-03-2024 Subsequent hospital visit by physician Randolph Bernal MD Work Phone: [facility] 9 Comment on above: Syncope (Primary Dx) ; Sinus bradycardia; S/P placement of cardiac pacemaker; CAD (coronary artery disease) Start: 04-25-2024 End: 04-25-2024 ambulatory DONNELL Coronado REJI [facility] Start: 04-20-2024 End: 04-20-2024 ambulatory DELILAH CHRISTIAN Facility:[facility] Start: 04-20-2024 End: 04-20-2024 Patient encounter procedure Max Mccann OD Work Phone: Optometry Comment on above: 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) Start: 04-04-2024 End: 04-04-2024 Office outpatient visit 40 minutes Toby Hudson MD Work Phone: [facility] Comment on above: Bradycardia (Primary Dx); Atherosclerosis of [place] coronary artery of [place] heart without angina pectoris; Sick sinus syndrome (Multi); H/O syncope; Hypertriglyceridemia; Coronary artery disease involving [place] coronary artery of [place] heart, unspecified whether angina present Start: 04-04-2024 End: 04-04-2024 ambulatory TOBY HUDSON [facility] Ambulatory Start: 03-29-2024 End: 03-29-2024 Office outpatient new 60 minutes Nusrat Grissom MD Work Phone: [facility] Comment on above: Coronary artery dise ase involving [place] coronary artery of [place] heart, unspecified whether angina present Start: 03-29-2024 End: 03-29-2024 ambulatory NUSRAT GRISSOM [facility] Start: 03-25-2024 End: 03-25-2024 ambulatory [facility] Start: 03-25-2024 End: 03-25-2024 Subsequent hospital visit by physician Toby Hudson MD Work Phone: [facility] Comment on above: Abnormal stress test (Primary Dx); Coronary artery disease involving [place] coronary artery of [place] heart, unspecified whether angina present; Sick sinus syndrome (Multi) Start: 03-16-2024 End: 03-16-2024 ambulatory DONNELL [facility] Start: 03-16-2024 End: 03-16-2024 Subsequent hospital visit by physician Batsheva Ct 1 [facility] Comment on above: Bradycardia Bradycardia; Atherosclerosis of [place] coronary artery of [place] heart without angina pectoris Start: 03-16-2024 End: 03-16-2024 ambulatory [facility] Start: 03-15-2024 End: 03-15-2024 Office outpatient new 60 minutes Randolph Bernal MD Work Phone: [facility] Comment on above: Sinus bradycardia (P rimary Dx); Mild cardiomegaly; Hypertriglyceridemia; Essential hypertension; H/O syncope Start: 03-15-2024 End: 03-15-2024 ambulatory [facility] Ambulatory Start: 03-08-2024 End: 03-08-2024 Subsequent hospital visit by physician Croft [facility] Comment on above: Bradycardia Arrived Bradycardia; Atherosclerosis of [place] coronary artery of [place] heart without angina pectoris Start: 03-08-2024 End: 03-08-2024 ambulatory [facility] Start: 02-26-2024 End: 02-26-2024 Office outpatient new 45 minutes Toby Hudson MD Work Phone: [facility] Comment on above: Bradycardia; Atherosclerosis of [place] coronary artery of [place] heart without angina pectoris Start: 02-26-2024 End: 02-26-2024 [facility] Start: 02-19-2024 End: 02-19-2024 Office outpatient visit 15 minutes Segundo Malloy MD MPH Work Phone: [facility] Comment on above: HTN (hypertension), benign (Primary Dx); Bradycardia Start: 02-19-2024 End: 02-19-2024 ambulatory SEGUNDOCELINA Louise [facility] Ambulatory Start: 02-10-2024 End: 02-10-2024 Office outpatient visit 25 minutes Alli Orona MD Work Phone: [facility] Comment on above: Prostate cancer (Mul ti); Erectile dysfunction of organic origin; Elevated PSA; Nocturia Start: 02-10-2024 End: 02-10-2024 ambulatory [facility] Amb[facility] Start: 02-10-2024 End: 02-10-2024 ambulatory [facility] Start: 01-26-2024 End: 01-26-2024 Subsequent hospital visit by physician Batsheva Mike 1 [facility] Comment on above: Arrived Elevated PSA; Prostate cancer (Multi) Start: 01-26-2024 End: 01-26-2024 ambulatory [facility] Start: 01-20-2024 End: 01-20-2024 Office outpatient visit 25 minutes Alli Orona MD Work Phone: [facility] Comment on above: Elevated PSA; Nocturia; Erectile dysfunction of organic origin; Prostate cancer (Multi) Start: 01-20-2024 End: 01-20-2024 ambulatory [facility] Start: 01-01-2024 End: 01-01-2024 ambulatory DELILAH CHRISTIAN Facility:[facility] Start: 01-01-2024 End: 01-01-2024 Patient encounter procedure Delilah Christian MD Work Phone: Ophthalmology Comment on above: 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); Glaucoma suspect of both eyes; Optic cupping of both eyes; Epiretinal membrane, both eyes; Type 2 diabetes mellitus without retinopathy (HCC); Essential hypertension Start: 12-29-2023 End: 12-29-2023 Subsequent hospital visit by physician Alli Orona MD Work Phone: [facility] [place] Comment on above: Elevated PSA Start: 12-18-2023 End: 12-18-2023 Assay of hemosiderin, quant Segundo Malloy MD MPH Work Phone: [facility] Work Phone: Start: 12-18-2023 End: 12-18-2023 Patient encounter procedure Segundo Malloy MD MPH Work Phone: [facility] Comment on above: Routine general medi eileen examination at health care facility (Primary Dx); HTN (hypertension), benign Start: 12-18-2023 End: 12-18-2023 ambulatory [facility] Ambulatory Start: 12-18-2023 End: 12-18-2023 Encounter for general adult medical examination without abnormal findings [facility] Ambulatory Start: 12-14-2023 ambulatory [facility] Start: 12-09-2023 End: 12-09-2023 Office outpatient visit 25 minutes Alli Orona MD Work Phone: [facility] Comment on above: Elevated PSA; Nocturia; Erectile dysfunction of organic origin; Benign prostatic hyperplasia with lower urinary tract symptoms, symptom details unspecified; Calculus of kidney Start: 12-09-2023 End: 12-09-2023 ambulatory [facility] Start: 12-07-2023 End: 12-07-2023 ambulatory [facility] Start: 12-03-2023 End: 12-03-2023 Subsequent hospital visit by physician [facility] Comment on above: Elevated PSA Start: 11-18-2023 End: 11-18-2023 Office outpatient visit 25 minutes Alli Orona MD Work Phone: [facility] Comment on above: Elevated PSA; Nocturia; Erectile dysfunction of organic origin; Benign prostatic hyperplasia with lower urinary tract symptoms, symptom details unspecified; Calculus of kidney Start: 11-06-2023 End: 11-06-2023 ambulatory SEGUNDO Louise [facility] Start: 11-03-2023 End: 11-03-2023 Subsequent hospital visit by physician Casimiro Courtney DO Work Phone: [facility] Comment on above: Dysphagia, unspecifi ed type (Primary Dx) Start: 10-20-2023 End: 10-20-2023 Office outpatient visit 25 minutes Chris Crane MD Work Phone: [facility] Comment on above: Vasovagal syncope (P rimary Dx); Right hemiparesis (Multi); Type 2 diabetes mellitus with diabetic polyneuropathy, without long-term current use of insulin (Multi); Esophageal dysphagia Start: 10-14-2023 End: 10-14-2023 Subsequent hospital visit by physician Batsheva Simpson [facility] Comment on above: Arrived Start: 10-05-2023 End: 10-05-2023 ambulatory MAX H COOPEREMILER II Facility:[facility] Start: 10-05-2023 End: 10-05-2023 Patient encounter procedure Delilah Christian MD Work Phone: Ophthalmology Comment on above: 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); Glaucoma suspect of both eyes; Combined form of senile cataract of both eyes; Optic cupping of both eyes; Type 2 diabetes mellitus without retinopathy (HCC); Essential hypertension Start: 09-09-2023 End: 09-09-2023 ambulatory MAX H COOPERRIDER II Facility:[facility] Start: 09-09-2023 End: 09-09-2023 Patient encounter procedure Max Mccann OD Work Phone: Optometry Comment on above: Optic nerve hemorrha ge, right (Primary Dx); Glaucoma suspect of both eyes; Type 2 diabetes mellitus without retinopathy (HCC); Epiretinal membrane, both eyes; Combined form of senile cataract of both eyes; Myopia of both eyes; Regular astigmatism of both eyes; Presbyopia Start: 05-20-2023 End: 05-20-2023 Office outpatient visit 25 minutes Alli Orona MD Work Phone: [facility] Comment on above: Elevated PSA; Nocturia; Erectile dysfunction of organic origin; Benign prostatic hyperplasia with lower urinary tract symptoms, symptom details unspecified; Calculus of kidney Start: 03-11-2023 Chart Update Segundo Hannahapareddi Work Phone: XX-Otthngl-Zgbqrpr Work Phone: Start: 11-12-2022 AUDIT Segundo Louise [employer] Work Phone: LD-Ccqmrzv-Gqouhtl Work Phone: Start: 11-12-2022 Office outpatient vi sit 15 minutes Segundo Hannahapareddi Work Phone: JW-Umpxzro-Ywvjknb Work Phone: Start: [facility] Provider: Babs Padilla, Status: Pen, Time: 7:30 AM Segundo Hannahapareddi Work Phone: YX-Aztxgpi-Jikblpt Work Phone: Start: 11-05-2022 End: 11-05-[address] Babs Padilla Facility:[id number] Start: 11-04-2022 Chart Update Segundo Hannahapareddi Work Phone: DM-Mpjhdhb-Ahqdqtz Work Phone: Start: 10-29-2022 ambulatory , MPH SEGUNDO MALLOY Facility:[id number] Start: 10-21-2022 End: 10-21-2022 ambulatory , MPH SEGUNDO MALLOY Facility:[id number] Start: 10-21-2022 End: 10-21-2022 Subsequent hospital visit by physician Alli Orona MD Work Phone: [facility] Comment on above: Elevated prostate sp ecific antigen (PSA); Essential (primary) hypertension; Personal history of transient ischemic attack (TIA), and cerebral infarction without residual deficits; Migraine, unspecified, not intractable, without status migrainosus; Type 2 diabetes mellitus without complications (CMS/HCC); Benign prostatic hyperplasia without lower urinary tract symptoms; Presence of unspecified artificial hip joint; 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 (nsaid); FDC (current) use of aspirin; Pure hypercholesterolemia, unspecified Start: 10-15-2022 Patient encounter procedure Segundo Louise Mallapareddi [facility] Work Phone: Start: 10-15-2022 PTRECHADUL, Provider : Michele Castrejon, Status: Pen, Time: 9:00 AM Segundo Hannahapareddi Work [facility] Work Phone: Start: 10-15-2022 ambulatory , MPH SEGUNDO [facility] Facility:[id number] Start: 10-13-2022 Patient encounter procedure Segundo Grimesreddi Work Phone: [facility] Work Phone: Start: 10-13-2022 ambulatory , MPH SEGUNDO Wisdom [facility] Facility:[id number] Start: 10-09-2022 NPV, Provider: Babs Padilla, Status: Pen, Time: 1:00 PM Segundo Hannahapareddi Work Phone: GG-Zjnhqpr-Rccsylq Work Phone: Start: 10-09-2022 Office consultation new/estab patient 60 min Segundo Hannahapareddi Work Phone: [facility] Work Phone: Start: 10-08-2022 ambulatory , MPH SEGUNDO [facility] Facility:[id number] Start: 10-08-2022 Office outpatient vi sit 25 minutes Segundo Hannahapareddi Work Phone: UA-Zhkdkah-Aelydou Work Phone: Start: 10-06-2022 ambulatory , MPH SEGUNDO Wisdom [facility] Facility:[id number] Start: 10-01-2022 Patient encounter procedure Segundo Grimesreddi Work Phone: [facility] Work Phone: Start: 10-01-2022 PTFUADULT4, Provider : Michele Castrejon, Status: Pen, Time: 9:15 AM Segundo Hannahapareddi Work Phone: [facility] Work Phone: Start: 10-01-2022 ambulatory , MPH SEGUNDO Wisdom [facility] Facility:[id number] Start: 09-29-2022 Patient encounter procedure Segundo Grimesreddi Work Phone: [facility] Work Phone: Start: 09-29-2022 ambulatory , MPH SEGUNDO Wisdom [facility] Facility:[id number] Start: 09-24-2022 PTFUADULT4, Provider : Gilbert Hirsch, Status: Pen, Time: 9:15 AM Segundo Hannahapareddi Work Phone: [facility] Work Phone: Start: 09-24-2022 ambulatory , MPH SEGUNDO Wisdom [facility] Facility:[id number] Start: 09-24-2022 Chart Update Segundo Grimesreddi Work Phone: PU-Qwjtgie-Yoyyffx Work Phone: Start: 09-22-2022 ambulatory , [id number] Start: 09-22-2022 Patient encounter procedure Segundo Malloy Work Phone: [facility] Work Phone: Start: 09-19-2022 ambulatory , MPH SEGUNDO ZEPEDAHOLAURI MALLOY Facility:[id number] Start: 09-17-2022 Patient encounter procedure Segundo Malloy Work Phone: [facility] Work Phone: Start: 09-17-2022 ambulatory , MPH [id number] Start: 09-12-2022 End: 09-12-2022 Patient encounter procedure Segundo Malloy MD MPH Work Phone: [facility] Comment on above: HTN (hypertension), benign (Primary Dx); Type 2 diabetes mellitus without complication, without long-term current use of insulin ([facility]); Vitamin B12 deficiency; Pain; Weakness of right lower extremity Start: 09-10-2022 Office outpatient vi sit 25 minutes Segundo Malloy Work Phone: JG-Pyxqfew-Jhnwgzn Work Phone: Start: 08-29-2022 Chart Update Segundocelina Malloy Work Phone: [facility] Work Phone: Start: 08-28-2022 Chart Update Segundo Malloy Work Phone: [facility] 232 DO Work Phone: Start: 08-26-2022 Chart Update Segundo Malloy Work Phone: [facility] Work Phone: Start: 08-26-2022 ambulatory , MPH SEGUNDO Wisdom [facility] Facility:[id number] Start: 06-03-2022 End: 06-03-2022 Patient encounter procedure Max Mccann OD Work Phone: Optometry Comment on above: Type 2 diabetes quintin itus without retinopathy (HCC) (Primary Dx); Glaucoma suspect of both eyes; Epiretinal membrane, both eyes; Combined form of senile cataract of both eyes; Myopia of both eyes; Regular astigmatism of both eyes; Presbyopia Start: 05-05-2022 Office outpatient vi sit 25 minutes Segundo Louise Mallapareddi Work Phone: [facility] Work Phone: Start: 04-08-2022 Chart Update Segundo Louise Mallapareddi Work Phone: [facility] Work Phone: Start: 03-28-2022 AUDIT Segundo Louise Mallapareddi Work Phone: [facility] Work Phone: Start: 03-24-2022 Office outpatient vi sit 25 minutes Segundo Louise Mallapareddi Work Phone: [facility] 232 DO Work Phone: Start: 03-19-2022 Office outpatient vi sit 25 minutes Segundo Louise Mallapareddi Work Phone: [facility] Work Phone: Start: 02-23-2022 Chart Update Segundo Louise Mallapareddi Work Phone: [facility] Work Phone: Start: 01-22-[address] Hari barrett [facility] Facility:[id number] Start: 12-11-2021 Adv care pln tlkd & alt dcsn maker docd Segundo Louise Mallapareddi Work Phone: [facility] Work Phone: Start: 11-22-2021 Chart Update Segundo Louise Mallapareddi Work Phone: [facility] Work Phone: Start: 10-30-2021 Office outpatient vi sit 15 minutes Segundo Louise Mallapareddi Work Phone: [facility] Work Phone: Start: 10-25-2021 AUDIT Segundo Nag S Mallapareddi Work Phone: [facility] Work Phone: Start: 10-12-2021 Chart Update Segundo Nag S Mallapareddi Work Phone: [facility] 232 DO Work Phone: Start: 10-09-2021 Office outpatient vi sit 25 minutes Segundo Nag S Mallapareddi Work Phone: [facility]ji[facility]Sts[facility] Work Phone: Start: 09-10-2021 Office outpatient vi sit 25 minutes Segundo Nag S Mallapareddi Work Phone: [facility] Work Phone: Start: 08-21-2021 Chart Update Segundo Nag S Mallapareddi Work Phone: [facility] Work Phone: Start: 06-10-2021 AUDIT Segundo Nag S Mallapareddi Work Phone: [facility] Work Phone: Start: 03-12-2021 Office outpatient vi sit 25 minutes Segundo Nag S Mallapareddi Work Phone: [facility] Work Phone: Start: 03-07-2021 Chart Update Segundo Nag S Mallapareddi Work Phone: [facility] Work Phone: Start: 01-16-2021 AUDIT Segundo Nag S Mallapareddi Work Phone: [facility] Work Phone: Start: 12-07-2020 Office outpatient vi sit 15 minutes Segundo Nag S Mallapareddi Work Phone: [facility] Work Phone: Start: 09-10-2020 Office outpatient vi sit 25 minutes Segundo Arron Dani Corneliochaiiraida Work Phone: [facility]chmp[facility] Work Phone: Start: 08-11-2020 End: 08-11-2020 Orders Only Deya Rivera Work Phone: [facility] Start: 02-22-2020 Patient encounter procedure Alli Orona II [facility] Work Phone: Start: 02-01-2020 Patient encounter procedure Alli Krausek II [facility] Work Phone: Start: 01-04-2020 End: 01-04-2020 Patient encounter procedure GREGORIO MEHTA [facility] Start: 01-04-2020 End: 01-04-2020 Office outpatient new 45 minutes Gregorio Mehta Work Phone: [facility] Comment on above: Cerebrovascular acci dent (CVA), unspecified mechanism (HCC) Start: 01-02-2020 Patient encounter procedure GREGORIO MEHTA [facility] Start: 12-28-2019 Patient encounter procedure Alil Krausek II [facility] Work Phone: Start: 09-12-2019 Patient encounter procedure Alli Orona II [facility] Work Phone: Start: 09-06-2019 Patient encounter procedure Alli Orona II [facility] Work Phone: Start: 08-01-2019 Patient encounter procedure Alli Orona II [facility] Work Phone: Start: 08-16-2018 Patient encounter procedure Alli Orona II [facility] Work Phone: Start: 04-16-2018 End: 04-16-2018 Evaluation and management of inpatient ELLIOTT LOLISJEFF Facility:[facility] Start: 10-29-2017 End: 10-31-2017 Evaluation and management of inpatient MAYA ROGERS Facility:[facility] Start: 12-19-2017 Patient encounter MAYA Gonzalez lity:[facility] Patient encounter status Segundo Malloy Work Phone: [facility] Work Phone: Procedures Date Procedure Procedure Detail Performing Clinician Start: 11-30-[address] Manolo Mendoza MD Work Phone: Start: 11-29-2024 Program eval implant able in persn dual ld pacer Randolph Bernal MD Work Phone: Start: 11-14-2024 Lipid 1996 panel - S mar or Plasma [facility] Start: 08-02-2024 Ecg routine ecg w/le ast 12 lds w/i&r Randolph Bernal MD Work Phone: Start: 07-25-2024 Fundus photography w/interpretation & report Delilah Christian MD Work Phone: Start: 05-31-2024 CARDIAC DEVICE CHECK - IN CLINIC Randolph Bernal MD Work Phone: Start: 05-11-2024 Computerized ophthal hillary imaging retina Max Chevy Kamron OD Work Phone: Start: 05-05-2024 Ecg routine ecg w/le ast 12 lds w/i&r Flavia Noland [employer] Work Phone: Start: 05-03-2024 Ct thorax w/o contra st material Leonid Anaya DO Work Phone: Start: 05-03-2024 Assay of troponin quantitative Leonid Caballeroroberto carlos DO Work Phone: Start: 05-03-2024 Ecg routine ecg w/le ast 12 lds trcg only w/o i&r Leonid Anaya DO Work Phone: Start: 05-03-2024 Radiologic exam ches t single view Leonid Anaya DO Work Phone: Start: 05-03-2024 Comprehensive metabo lic panel Leonid Anaya DO Work Phone: Start: 05-03-2024 Troponin I.cardiac p destiney - Serum or Plasma by High sensitivity method Leonid Reyes Silvestre DO Work Phone: Start: 05-03-2024 LIGHT BLUE TOP Leonid Amy Anaya DO Work Phone: Start: 05-03-2024 RAINBOW DRAW Leonid Amy Anaya DO Work Phone: Start: 05-03-2024 Ecg routine ecg w/le ast 12 lds trcg only w/o i&r Leonid Reyes Silvestre DO Work Phone: Start: 05-03-2024 Glucose quantitative blood xcpt reagent strip Randolph Bernal MD Work Phone: Start: 05-03-2024 Radiologic exam ches t 2 views Era Bailon [employer] Work Phone: Start: 05-03-2024 Glucose quantitative blood xcpt reagent strip Randolph Bernal MD Work Phone: Start: 05-02-2024 Glucose quantitative blood xcpt reagent strip Randolph Bernal MD Work Phone: Start: 05-02-2024 Ecg routine ecg w/le ast 12 lds trcg only w/o i&r Era Bailon [employer] Work Phone: Start: 05-02-2024 Electrophysiology study Randolph Bernal MD Work Phone: Start: 05-02-2024 Glucose quantitative blood xcpt reagent strip Randolph Bernal MD Work Phone: Start: 05-02-2024 Ecg routine ecg w/le ast 12 lds trcg only w/o i&r Era Bailon [employer] Work Phone: Start: 04-20-2024 End: 04-20-2024 Visual field xm uni/bi w/interp extended exam Max Mccann OD Work Phone: Start: 04-04-2024 Follow-up visit Follow-up TOBY HUDSON Start: 03-25-2024 Cardiac catheterizat ion study Toby Keenan Gatica Tristan MD Work Phone: Start: 03-16-2024 Echo tthrc r-t 2d w/ wom-mode compl spec&colr d Toby Hudson MD Work Phone: Start: 03-15-2024 Ecg routine ecg w/le ast 12 lds w/i&r Randolph Bernal MD Work Phone: Start: 03-08-2024 Cv strs tst xers&/or rx cont ecg trcg only Toby Hudson MD Work Phone: Start: 03-08-2024 Myocardial spect mul tiple studies Toby Hudson MD Work Phone: Start: 02-26-2024 Ecg routine ecg w/le ast 12 lds w/i&r Toby Hudson MD Work Phone: Start: 01-26-2024 Bone &/joint imaging whole body Alli Orona MD Work Phone: Start: 01-01-2024 End: 01-01-2024 Visual field xm uni/bi w/interp extended exam Delilah Christian MD Work Phone: Start: 12-29-2023 PULSE OXIMETRY, SPOT Hiwot domenico Orona MD Work Phone: Start: 12-07-2023 Lipid 1996 panel - S mar or Plasma Alli Orona MD Work Phone: Start: 12-03-2023 Mri pelvis w/o & w/c ontrast material Alli Orona MD Work Phone: Start: 11-06-2023 PROSTATE SPECIFIC ANTIGEN SEGUNDO MELLISSA Start: 11-03-2023 Egd transoral biopsy single/multiple Casimiro Courtney DO Work Phone: Start: 10-14-2023 Ecg routine ecg w/le ast 12 lds trcg only w/o i&r Anastasia Ramos PA-C Work Phone: Start: 10-05-2023 Fundus photography w/interpretation & report Delilah Christian MD Work Phone: Start: 09-09-2023 End: 09-09-2023 Visual field xm uni/bi w/interp extended exam Max Mccann OD Work Phone: Start: 05-22-2023 Lipid 1996 panel - S mar or Plasma Alli Orona MD Work Phone: Start: 10-21-2022 SURGICAL PATHOLOGY RESULTS Alli Orona MD Work Phone: Start: 10-21-2022 Glucose [Mass/volume ] in Serum or Plasma Alli Orona MD Work Phone: Start: 06-03-2022 End: 06-03-2022 Visual field xm uni/bi w/interp extended exam Max Recioblessing OD Work Phone: Start: 02-21-2022 Lipid 1996 panel - S mar or Plasma Segundo Malloy MD MPH Work Phone: Start: 12-28-2019 Assay of thyroid sti mulating hormone tsh Alli Orona II Start: 12-28-2019 Blood count complete auto&auto difrntl wbc Alli Orona II Start: 12-28-2019 Comprehensive metabo lic 2000 panel Alli Orona II Start: 12-28-2019 Cyanocobalamin vitamin b-12 Alli Orona II Start: 12-28-2019 Hemoglobin glycosylated a1c Alli Orona II Start: 12-28-2019 Lipid panel Alli Orona II Start: 12-22-2019 Echocardiography Alli P sandy II Start: 06-15-2018 Colonoscopy Alli Orona MD Work Phone: Procedure on back Segundo Nag S Mellissa Work Phone: Prosthetic arthropla sty of the hip Alli Orona II Repair of inguinal hernia Ar un Nag S Camdenaparediraida Work Phone: Comment on above: Open left inguinal h ernia repair with placement of mesh on 11/05/[address] Padilla; Tonsillectomy Alli Orona II Total replacement of hip Aru n Nag S Mellissa Work Phone: Plan of Treatment Date Care Activity Detail Author Start: 07-13-2034 DTaP/Tdap/Td Vaccines (2 - Td or Tdap) DTaP/Tdap/Td Vaccines (2 - Td or Tdap) [facility] Start: 07-13-2034 DTaP/Tdap/Td Vaccines (3 - Td or Tdap) DTaP/Tdap/Td Vaccines (3 - Td or Tdap) [facility] Start: 07-13-2034 Urine microalbumin profile DTaP,Tdap,Td Vaccine (2 - Td or Tdap) [facility] Start: 12-06-2028 Lipid panel Lipid Screening [facility] Start: 06-15-2028 Screening for malignant neoplasm of colon [facility] Start: 05-17-2027 Diabetes Screening Diabetes Screening [facility] Start: 07-25-2026 Glaucoma screening Diabetes: Retinopathy Screening [facility] Start: 11-14-2025 Lipid panel Lipid Panel [facility] Start: 07-31-2025 End: 07-31-2025 Patient encounter procedure 07/31/2025 8:45 AM EST Office Visit [facility] [address] [place] [address] Delilah Christian MD [address] [place] [address] [facility] Comment on above: [facility] Start: 07-25-2025 Pneumococcal vaccination Pneumococcal Vaccine (2 of 2 - PCV) [facility] Start: 07-20-2025 End: 07-20-2025 Patient encounter procedure 07/20/2025 8:30 AM EST Office Visit [facility] [address] [facility] 2nd [place] [phone] Randolph Bernal MD [address] [facility] [address] [place] [address] [facility] Start: 06-05-2025 End: 06-05-2025 Patient encounter procedure 06/05/2025 8:40 AM EST Office Visit [facility] [address] [place] [address] Donnell Mendoza MD [address] [facility][note 2], [address] [place] [address] [facility] Start: 05-11-2025 Glaucoma screening Dilated Retinal Exam [facility] Start: 04-04-2025 End: 04-04-2025 Patient encounter procedure 04/04/2025 10:30 AM EDT Office Visit [facility] [address] [place] [phone] Toby Henderson MD [address], [address] [place] [address] [facility] Start: 03-08-2025 End: 09-05-2025 Prostate specific Ag [Mass/volume] in Serum or Plasma PSA Lab Routine Prostate cancer (Multi) Expected: 03/08/2025 (Approximate), Expires: 09/05/2025 [facility] Service Area Work Phone: Comment on above: Expected: 03/08/2025 (Approximate), Expi res: 09/05/2025 Start: 02-14-2025 Hemoglobin A1c measurement Diabetes: Hemoglobin A1C [facility] Start: 02-01-2025 End: 02-01-2025 Patient encounter procedure 02/01/2025 10:30 AM EDT Office Visit [facility] [address] [place] [address] Max Mccann II, OD [address] [place] [address] glaucoma suspect. Optometry Comment on above: glaucoma suspect. Start: 01-03-2025 End: 07-27-2025 Prostate specific Ag [Mass/volume] in Serum or Plasma Prostate Specific Antigen Lab Routine Prostate cancer (Multi) Expected: 01/03/2025 (Approximate), Expires: 07/27/2025 [facility] Service Area Work Phone: Comment on above: Expected: 01/03/2025 (Approximate), Expi res: 07/27/2025 Start: 12-31-2024 Glaucoma screening [facility] Start: 12-23-2024 ambulatory Ambulatory Facility:[facility] Start: 12-18-2024 Medicare Annual Wellness Visit Medicare Annual Wellness Visit (AWV) [facility] Start: 12-06-2024 Hepatitis B surface antibody level LDL Cholesterol [facility] Start: 12-06-2024 Lipid panel Lipid Panel [facility] Start: 11-30-2024 End: 11-30-2024 [facility] Start: 11-30-2024 Ambulation without limitation [facility] Start: 11-30-2024 Medical regimen orders management [facility] Start: 11-30-2024 Medication education [facility] Start: 11-30-2024 End: 11-30-2024 Patient discharge [facility] Start: 11-30-2024 Taking patient vital signs [facility] Start: 11-29-2024 End: 11-29-2024 Patient encounter procedure 11/29/2024 2:30 PM EDT Appointment [facility] [address] [phone] [facility] Start: 11-24-2024 End: 11-24-2024 Patient encounter procedure 11/24/2024 10:00 AM EDT Office Visit [facility] [address] [phone] Donnell Mendoza MD [address] [facility] [place][note 2], [facility] [address] [place] [phone] [facility] Start: 11-23-2024 End: 05-26-2025 Basic metabolic 2000 panel - Serum or Plasma Basic Metabolic Panel Lab Routine HTN (hypertension), benign Expected: 11/23/2024, Expires: 05/26/2025 [facility] Work Phone: Comment on above: Expected: 11/23/2024, Expires: Start: 11-23-2024 End: 05-26-2025 Cobalamin (Vitamin B12) [Mass/volume] in Serum or Plasma Vitamin B12 Lab Routine Vitamin B12 deficiency Expected: 11/23/2024, Expires: 05/26/2025 [facility] Work Phone: Comment on above: Expected: 11/23/2024, Expires: Start: 11-23-2024 End: 05-26-2025 Hemoglobin A1c/Hemoglobin.total in Blood Hemoglobin A1C Lab Routine Type 2 diabetes mellitus with diabetic polyneuropathy, without long-term current use of insulin Expected: 11/23/2024, Expires: 05/26/2025 [facility] Work Phone: Comment on above: Expected: 11/23/2024, Expires: Start: 11-23-2024 End: 05-26-2025 Lipid 1996 panel - Serum or Plasma Lipid Panel Lab Routine HTN (hypertension), benign Expected: 11/23/2024, Expires: 05/26/2025 [facility] Service Area Work Phone: Comment on above: Expected: 11/23/2024, Expires: Start: 10-04-2024 Glaucoma screening [facility] Start: 10-04-2024 End: 10-04-2024 Patient encounter procedure 10/04/2024 10:15 AM EDT Office Visit [facility] [address] [place] [address] Toby Henderson MD [address], [address] [place] [address] [facility] Start: 09-05-2024 End: 09-05-2024 Patient encounter procedure 09/05/2024 2:30 PM EST Procedure Visit [facility] [address] [facility] [address] [place] [address] [facility] Start: 08-17-2024 End: 08-17-2024 Patient encounter procedure 08/17/2024 1:00 PM EST Office Visit [address] [phone] Alli Orona MD [address] [place] [phone] [facility] Start: 08-10-2024 End: 08-10-2024 Patient encounter procedure 08/10/2024 9:00 AM EST Office Visit [address] [phone] Alli Orona MD [address] [place] [address] [facility] Start: 08-06-2024 End: 05-11-2025 Prostate specific Ag [Mass/volume] in Serum or Plasma Prostate Specific Antigen Lab Routine Prostate cancer (Multi) Expected: 08/06/2024 (Approximate), Expires: 05/11/2025 [facility] Service Area Work Phone: Comment on above: Expected: 08/06/2024 (Approximate), Expi res: 05/11/2025 Start: 08-02-2024 End: 08-02-2024 Patient encounter procedure [facility] Start: 07-25-2024 End: 07-25-2024 Patient encounter procedure 07/25/2024 9:15 AM EST Office Visit [facility] [address] [place], [place] [phone] Delilah Christian MD [address] [place] [address] niddm./ glaucoma suspect. Ophthalmology Comment on above: niddm./ glaucoma suspect. Start: 2024 RSV Vaccine (1 - 1-dose 75+ series) RSV Vaccine (1 - 1-dose 75+ series) [facility] Start: 07-15-2024 Glaucoma screening Dilated Retinal Exam [facility] Start: 07-06-2024 Advance Directive Discussion Advance Directive Discussion [facility] Start: 06-07-2024 Hemoglobin A1c measurement HbA1C [facility] Start: 05-31-2024 End: 05-31-2024 Patient encounter procedure [facility] Start: 05-27-2024 End: 05-27-2024 Patient encounter procedure 05/27/2024 10:00 AM EST Office Visit [facility] [address] [place] [address] Toby Henderson MD [address], [address] [place] [address] [facility] Start: 05-26-2024 End: 05-26-2024 Patient encounter procedure 05/26/2024 9:00 AM EST Office Visit [facility] [address] [place] [phone] Donnell Mendoza MD [address] [facility] [place][note 2], [address] [place] [phone] [facility] Start: 05-22-2024 Hepatitis B surface antibody level LDL Cholesterol [facility] Start: 05-22-2024 Lipid panel Lipid Panel [facility] Start: 05-17-2024 End: 05-17-2024 Patient encounter procedure 05/17/2024 11:30 AM EST Appointment [facility] [address] [place] [address] [facility] Start: 05-12-2024 End: 02-09-2025 Prostate specific Ag [Mass/volume] in Serum or Plasma Prostate Specific Antigen Lab Routine Prostate cancer (Multi) Elevated PSA Expected: 05/12/2024 (Approximate), Expires: 02/09/2025 [facility] Service Area Work Phone: Comment on above: Expected: 05/12/2024 (Approximate), Expi res: 02/09/2025 Start: 05-11-2024 End: 05-11-2024 Patient encounter procedure 05/11/2024 9:15 AM EST Office Visit [place] [phone] [facility] [address] [place] [phone] Alli Orona MD [address] [place] [phone] [facility] Start: 05-09-2024 End: 05-09-2024 Clinical Support 05/09/2024 9:30 AM EST Clinical Support [facility] Office [facility] [address] [place] [phone] [facility] Start: 05-05-2024 End: 05-05-2024 Patient encounter procedure 05/05/2024 9:00 AM EDT Office Visit [facility] [address] [place] [phone] Flavia Noland, [employer] [address] [place] [address] [facility] [address] [place] [phone] [facility] Office [facility] Start: 04-12-2024 End: 04-12-2024 Patient encounter procedure 04/12/2024 10:30 AM EDT Office Visit [facility] [address] [place] [phone] Randolph Bernal MD [address], [address] [place], [place] [phone] [facility] Office [facility] Start: 04-04-2024 End: 04-04-2024 Patient encounter procedure 04/04/2024 2:45 PM EDT Office Visit [facility] Office [facility] [address] [place] [phone] Toby Henderson MD [address], [address] [place], [place] [phone] [facility] Office [facility] Start: 03-31-2024 End: 03-31-2024 Patient encounter procedure 03/31/2024 8:30 AM EDT Office Visit [facility] [address] [place] [address] Max Mccann II, OD [address] [place] [address] 3 months for visual field and OCT of optic nerve. Optometry Comment on above: 3 months for visual field and OCT of opt ic nerve. Start: 03-29-2024 End: 03-29-2024 Patient encounter procedure 03/29/2024 3:00 PM EDT Office Visit [facility] [address] [place] [address] [place] [address] [address] Department [place] [address] [facility] Start: 03-28-2024 End: 03-28-2024 Admission to same day surgery center 03/28/2024 2:30 PM EDT - 03/28/2024 3:30 PM EDT Surgery [facility] [address] [place] [phone] Randolph Bernal MD [address], [address] [place] [address] Dual Chamber PPM (16097) [60288 (CPT )] [facility] Comment on above: Dual Chamber PPM (55643) [30634 (CPT )] Start: 03-28-2024 Subsequent hospital visit by physician [facility] Comment on above: Sinus bradycardia; Essential hypertension; H/O syncope Start: 03-25-2024 End: 03-25-2024 Admission to same day surgery center 03/25/2024 9:00 AM EDT - 03/25/2024 10:00 AM EDT Surgery [facility] [address] [place] [phone] Toby Henderson MD [address], [address] [place] [address] Left Heart Cath [52305 (CPT )] [facility] Comment on above: Left Heart Cath [22711 (CPT )] Start: 03-25-2024 Subsequent hospital visit by physician 03/25/2024 9:00 AM EDT Hospital Encounter [facility] [address] [place] [address] Toby Henderson MD [address] [facility], [address] [place] [phone] Abnormal stress test [facility] Comment on above: Abnormal stress test Start: 03-16-2024 End: 03-16-2024 Patient encounter procedure [facility] Start: 03-15-2024 End: 03-15-2025 Basic metabolic 2000 panel - Serum or Plasma Basic metabolic panel Lab Routine Sinus bradycardia H/O syncope Expected: 03/15/2024 (Approximate), Expires: 03/15/2025 [facility] Service Area Work Phone: Comment on above: Expected: 03/15/2024 (Approximate), Expi res: 03/15/2025 Start: 03-15-2024 End: 03-15-2025 CBC panel - Blood by Automated count CBC Lab Routine Sinus bradycardia H/O syncope Expected: 03/15/2024 (Approximate), Expires: 03/15/2025 [facility] Work Phone: Comment on above: Expected: 03/15/2024 (Approximate), Expi res: 03/15/2025 Start: 03-08-2024 Hemoglobin A1c measurement Diabetes: Hemoglobin A1C [facility] Start: 03-06-2024 COVID-19 Vaccine ( season) COVID-19 Vaccine () [facility] Start: 03-06-2024 Covid-19 Vaccine () Covid-19 Vaccine () [facility] Start: 03-06-2024 Influenza vaccination [facility] Start: 02-26-2024 End: 02-25-2025 CT for calcium scoring WO contrast and CTA W contrast IV Heart and coronary arteries CT cardiac scoring wo IV contrast Imaging Routine Bradycardia Expected: 02/26/2024, Expires: 02/25/2025 [facility] Service Area Work Phone: Comment on above: Expected: 02/26/2024, Expires: Start: 02-26-2024 End: 02-25-2025 Holter monitor study Holter Or Event Geospatial Developer Cardiac Services Routine Bradycardia Expected: 02/26/2024, Expires: 02/25/2025 [facility] Work Phone: Comment on above: Expected: 02/26/2024, Expires: Start: 02-26-2024 End: 02-25-2026 NM Heart Perfusion W stress and W radionuclide IV Nuclear Stress Test Cardiac Nuclear Medicine Routine Bradycardia Atherosclerosis of [place] coronary artery of [place] heart without angina pectoris Expected: 02/26/2024 (Approximate), Expires: 02/25/2026 [facility] Work Phone: Comment on above: Expected: 02/26/2024 (Approximate), Expi res: 02/25/2026 Start: 02-26-2024 End: 02-25-2026 US Heart Transthoracic Transthoracic Echo Complete Echocardiography Routine Bradycardia Atherosclerosis of [place] coronary artery of [place] heart without angina pectoris Expected: 02/26/2024 (Approximate), Expires: 02/25/2026 [facility] Work Phone: Comment on above: Expected: 02/26/2024 (Approximate), Expi res: 02/25/2026 Start: 02-19-2024 End: 02-18-2025 Basic metabolic 2000 panel - Serum or Plasma Basic Metabolic Panel Lab Routine HTN (hypertension), benign Expected: 02/19/2024 (Approximate), Expires: 02/18/2025 [facility] Service Area Work Phone: Comment on above: Expected: 02/19/2024 (Approximate), Expi res: 02/18/2025 Start: 02-19-2024 End: 02-19-2024 Patient encounter procedure 02/19/2024 10:00 AM EDT Office Visit [facility] [address] [place] [phone] Segundo Malloy MD MPH [address] [facility] [place][note 2], [address] [place] [address] [facility] Start: 02-10-2024 End: 02-10-2024 Patient encounter procedure 02/10/2024 3:45 PM EDT Office Visit [facility] [address] [facility] [address] [place] [phone] Alli Orona MD [address] [place], [place] [id number] [facility] Start: 02-01-2024 Esophagogastroduodenoscopy EGD [facility] Start: 01-20-2024 End: 01-19-2025 NM Whole body Bone Views NM bone whole body Imaging Routine Elevated PSA Prostate cancer (Multi) Expected: 01/20/2024, Expires: 01/19/2025 [facility] Service Area Work Phone: Comment on above: Expected: 01/20/2024, Expires: Start: 12-29-2023 End: 12-29-2023 Admission to same day surgery center 12/29/2023 7:30 AM EDT - 12/29/2023 7:45 AM EDT Surgery [facility] OR [address] [place] [phone] Alli Orona MD [facility] [place] [address] Ultrasound guidance for Prostate Fusion Bx [85843 (CPT )] [facility] OR Comment on above: Ultrasound guidance for Prostate Fusion Bx [56042 (CPT )] Start: 12-29-2023 End: 12-29-2023 Prostate needle biopsy any approach [facility] OR Start: 12-29-2023 End: 12-29-2023 Us guidance needle placement img s&i Virtual [facility] OR Start: 12-29-2023 End: 12-29-2023 Us transrectal Virtual [facility] OR Start: 12-29-2023 Subsequent hospital visit by physician 12/29/2023 6:00 AM EDT Hospital Encounter [facility] [place] [address] [place] [phone] Alli Orona MD [address] [place] [phone] [facility] OR Start: 12-18-2023 End: 12-17-2024 Basic metabolic 2000 panel - Serum or Plasma Basic Metabolic Panel Lab Routine HTN (hypertension), benign Expected: 12/18/2023 (Approximate), Expires: 12/17/2024 [facility] Service Area Work Phone: Comment on above: Expected: 12/18/2023 (Approximate), Expi res: 12/17/2024 Start: 12-18-2023 End: 12-18-2023 Patient encounter procedure 12/18/2023 9:20 AM EDT Office Visit [facility] [address] [place] [phone] Segundo Malloy MD MPH [address] [facility] [place][note 2], [address] [place] [id number] [facility] Start: 12-09-2023 End: 12-09-2023 Patient encounter procedure 12/09/2023 2:30 PM EDT Office Visit [facility] 2 [facility] [address] [place] [phone] Alli Orona MD [address] [place], [place] [phone] [facility] Start: 12-05-2023 Hepatitis B screening Urine Albumin:Creatinine Ratio [facility] Start: 12-05-2023 Urine screening for protein Diabetes: Urine Protein Screening [facility] Start: 11-20-2023 Hemoglobin A1c measurement HbA1C [facility] Start: 11-18-2023 End: 11-17-2024 MR Prostate MR prostate with jerri boundaries Imaging Routine Elevated PSA Expected: 11/18/2023 (Approximate), Expires: 11/17/2024 [facility] Service Area Work Phone: Comment on above: Expected: 11/18/2023 (Approximate), Expi res: 11/17/2024 Start: 11-18-2023 End: 05-20-2024 Prostate specific Ag [Mass/volume] in Serum or Plasma Prostate Specific Antigen Lab Routine Elevated PSA Expected: 11/18/2023 (Approximate), Expires: 05/20/2024 [facility] Service Area Work Phone: Comment on above: Expected: 11/18/2023 (Approximate), Expi res: 05/20/2024 Start: 11-18-2023 End: 11-18-2023 Patient encounter procedure 11/18/2023 8:30 AM EDT Office Visit [place] [id number] [facility] [address] [place] [phone] Alli Orona MD [address] [place], [place] [phone] [facility] Start: 10-20-2023 End: 10-20-2023 Patient encounter procedure 10/20/2023 8:30 AM EDT Office Visit [facility] [address] [place] [phone] Chris Crane MD [address] [facility] [place][note 2], [address] [place] [phone] [facility] Start: 09-14-2023 Medicare Annual Wellness Visit Medicare Annual Wellness Visit (AWV) [facility] Start: 08-25-2023 Urine screening for protein Diabetes: Urine Protein Screening [facility] Start: 08-22-2023 Hemoglobin A1c measurement Diabetes: Hemoglobin A1C [facility] Start: 07-06-2023 Advance Directive Discussion Advance Directive Discussion [facility] Start: 07-06-2023 Behavioral Health Screening Behavioral Health Screening [facility] Start: 07-06-2023 Depression Assessment Depression Assessment [facility] Start: 06-17-2023 End: 06-17-2023 Patient encounter procedure 06/17/2023 8:00 AM EST Office Visit [facility] [address] [place] [phone] Segundo Malloy MD MPH [address] [facility] [place][note 2], [address] [place], [place] [phone] [facility] Start: 06-03-2023 Hepatitis C antibody, confirmatory test DILATED RETINAL EXAM [facility] Start: 03-25-2023 FUV, Provider: Alli Orona II, Status: Pen, Time: 9:30 AM FUV, Provider: Alli Orona II, Status: Pen, Time: 9:30 AM [facility]Rrnndqy[facility] d Work Phone: Start: 03-06-2023 Covid-19 Vaccine ( season) Covid-19 Vaccine ( season) [facility] Start: 03-06-2023 Hemoglobin A1c measurement Diabetes: Hemoglobin A1C [facility] Start: 03-06-2023 Influenza vaccination Influenza Vaccine (#1) [facility] Start: 02-21-2023 Lipid panel Lipid Panel [facility] Start: 12-16-2022 End: 12-16-2022 Patient encounter procedure 12/16/2022 7:40 AM EDT Office Visit [facility] [address] [place] [phone] Segundo Malloy MD MPH [address] [facility] [place][note 2], [address] [place], [place] [phone] [facility] Start: 12-04-2022 POV, Provider: Babs Padilla, Status: Pen, Time: 9:00 AM POV, Provider: Babs Padilla, Status: Pen, Time: 9:00 AM [facility] Work Phone: Start: 11-12-2022 VIRFUVHOME, Provider: Alli Orona II, Status: Pen, Time: 9:15 AM VIR[facility]UVHOME, Provider: Alli Orona II, Status: Pen, Time: 9:15 AM [facility]-Mpakkdk-Auycnw d Work Phone: Start: 11-05-2022 [facility], Provider: Babs Padilla, Status: Pen, Time: 7:30 AM [facility], Provider: Babs Padilla, Status: Pen, Time: 7:30 AM -[facility] Work Phone: Start: 10-21-2022 [facility], Provider: Alli Orona II, Status: Pen, Time: 11:30 AM [facility], Provider: Alli Orona II, Status: Pen, Time: 11:30 AM [facility] Work Phone: Start: 10-15-2022 PTRECHADUL, Provider: Michele Castrejon, Status: Pen, Time: 9:00 AM PTRECHADUL, Provider: Michele Castrejon, Status: Pen, Time: 9:00 AM [facility] Work Phone: Start: 10-13-2022 PTFUADULT4, Provider: Michele Castrejon, Status: Pen, Time: 9:15 AM PTFUADULT4, Provider: Michele Castrejon, Status: Pen, Time: 9:15 AM [facility] Work Phone: Start: 10-09-2022 NPV, Provider: Babs Padilla, Status: Pen, Time: 1:00 PM NPV, Provider: Babs Padilla, Status: Pen, Time: 1:00 PM FB-Mbyxzdm-Mokrbm d Work Phone: Start: 10-08-2022 PTFUADULT4, Provider: Michele Castrejon, Status: Pen, Time: 1:45 PM PTFUADULT4, Provider: Michele Castrejon, Status: Pen, Time: 1:45 PM [facility] Work Phone: Start: 10-08-2022 FUV, Provider: Alli Orona II, Status: Pen, Time: 9:30 AM FUV, Provider: Alli Orona II, Status: Pen, Time: 9:30 AM DV-Klbdplk-Qralgn d Work Phone: Start: 10-06-2022 PTFUADULT4, Provider: Michele Castrejon, Status: Pen, Time: 9:30 AM PTFUADULT4, Provider: Michele Castrejon, Status: Pen, Time: 9:30 AM [facility] Work Phone: Start: 10-01-2022 PTFUADULT4, Provider: Michele Castrejon, Status: Pen, Time: 9:15 AM PTFUADULT4, Provider: Michele Castrejon, Status: Pen, Time: 9:15 AM [facility] Work Phone: Start: 09-29-2022 PTFUADULT4, Provider: Michele Castrejon, Status: Pen, Time: 10:15 AM PTFUADULT4, Provider: Michele Castrejon, Status: Pen, Time: 10:15 AM [facility] Work Phone: Start: 09-24-2022 PTFUADULT4, Provider: Gilbert Hirsch, Status: Pen, Time: 9:15 AM PTFUADULT4, Provider: Gilbert Hirsch, Status: Pen, Time: 9:15 AM [facility] Work Phone: Start: 09-22-2022 PTFUADULT4, Provider: Deya Dasilva, Status: Pen, Time: 9:15 AM PTFUADULT4, Provider: Deya Dasilva, Status: Pen, Time: 9:15 AM [facility] Work Phone: Start: 09-18-2022 SANTANA, Provider: Alli Orona II, Status: Pen, Time: 8:00 AM SANTANA, Provider: Alli Orona II, Status: Pen, Time: 8:00 AM RM-Asixldp-Rcqzij nd [facility] 232 DO Work Phone: Start: 09-12-2022 End: 09-13-2023 Cobalamin (Vitamin B12) [Mass/volume] in Serum or Plasma Vitamin B12 Lab Routine Vitamin B12 deficiency Expected: 09/12/2022 (Approximate), Expires: 09/13/2023 [facility] Work Phone: Comment on above: Expected: 09/12/2022 (Approximate), Expi res: 09/13/2023 Start: 09-12-2022 End: 09-13-2023 Hemoglobin A1c/Hemoglobin.total in Blood Hemoglobin A1C Lab Routine Type 2 diabetes mellitus without complication, without long-term current use of insulin (CMS/HCC) Expected: 09/12/2022 (Approximate), Expires: 09/13/2023 [facility] Work Phone: Comment on above: Expected: 09/12/2022 (Approximate), Expi res: 09/13/2023 Start: 09-12-2022 End: 09-13-2023 Microalbumin/Creatinine [Mass Ratio] in Urine Albumin, urine, random Lab Routine Type 2 diabetes mellitus without complication, without long-term current use of insulin (CMS/HCC) Expected: 09/12/2022 (Approximate), Expires: 09/13/2023 [facility] Service Area Work Phone: Comment on above: Expected: 09/12/2022 (Approximate), Expi res: 09/13/2023 Start: 09-12-2022 EPV, Provider: Segundo Malloy, Status: Pen, Time: 9:20 AM EPV, Provider: Segundo Malloy, Status: Pen, Time: 9:20 AM [facility] Work Phone: Start: 09-10-2022 FUV, Provider: Alli Orona II, Status: Pen, Time: 9:00 AM FUV, Provider: Alli Orona II, Status: Pen, Time: 9:00 AM MD-Nqwjgim-Gmhasz d Work Phone: Start: 05-24-2022 Hemoglobin A1c measurement Diabetes: Hemoglobin A1C [facility] Start: 03-24-2022 FUV, Provider: Alli Orona II, Status: Pen, Time: 11:15 AM FUV, Provider: Alli Orona II, Status: Pen, Time: 11:15 AM [facility] Work Phone: Start: 03-19-2022 EPV, Provider: Segundo Malloy, Status: Pen, Time: 9:40 AM EPV, Provider: Segundo Malloy, Status: Pen, Time: 9:40 AM DL-Ujvwpch-Hhhkvx d Work Phone: Start: 03-12-2022 EPV, Provider: Segundo Malloy, Status: Pen, Time: 9:20 AM EPV, Provider: Segundo Malloy, Status: Pen, Time: 9:20 AM [facility] Work Phone: Start: 03-06-2022 Influenza vaccination [facility] Start: 12-11-2021 EPV, Provider: Segundo Malloy, Status: Pen, Time: 8:40 AM EPV, Provider: Segundo Malloy, Status: Pen, Time: 8:40 AM [facility] Work Phone: Start: 10-30-2021 VIRFUVHOME, Provider: Alli Orona II, Status: Pen, Time: 8:45 AM VIRFUVHOME, Provider: Alli Orona II, Status: Pen, Time: 8:45 AM GY-Odbcjoj-Klanee d Work Phone: Start: 09-16-2021 FUV, Provider: Alli Orona II, Status: Pen, Time: 8:15 AM FUV, Provider: Alli Orona II, Status: Pen, Time: 8:15 AM [facility] Work Phone: Start: 09-10-2021 EPV, Provider: Segundo Malloy, Status: Pen, Time: 9:20 AM EPV, Provider: Segundo Malloy, Status: Pen, Time: 9:20 AM [facility] Work Phone: Start: 07-06-2021 ADVANCE DIRECTIVE DISCUSSION ADVANCE DIRECTIVE DISCUSSION [facility] Start: 07-06-2021 DEPRESSION ASSESSMENT DEPRESSION ASSESSMENT [facility] Start: 03-12-2021 EPV, Provider: Segundo Malloy, Status: Pen, Time: 9:20 AM EPV, Provider: Segundo Malloy, Status: Pen, Time: 9:20 AM [facility] Work Phone: Start: 11-29-2020 COVID-19 VACCINE (3 - Booster for Moderna series) COVID-19 VACCINE (3 - Booster for Moderna series) [facility] Start: 11-29-2020 COVID-19 Vaccine (3 - Moderna series) COVID-19 Vaccine (3 - Moderna series) [facility] Start: 09-05-2020 Pneumococcal Vaccine: 50+ (2 of 2 - PCV) Pneumococcal Vaccine: 50+ (2 of 2 - PCV) [facility] Start: 09-05-2020 Pneumococcal Vaccine: 65+ (2 of 2 - PCV) Pneumococcal Vaccine: 65+ (2 of 2 - PCV) [facility] Start: 09-05-2020 Pneumococcal Vaccine: 65+ Years (2 - PCV) Pneumococcal Vaccine: 65+ Years (2 - PCV) [facility] Start: 09-05-2020 Pneumococcal Vaccine: 65+ Years (2 of 2 - PCV) Pneumococcal Vaccine: 65+ Years (2 of 2 - PCV) [facility] Start: 06-28-2020 Hemoglobin A1c/Hemoglobin.total in Blood HBA1C [facility] Start: 03-06-2020 Influenza vaccination given Sequential Influenza Vaccine (#1) [facility] Start: 2014 Pneumococcal vaccination Pneumococcal Vaccine Age 65+ (1 of 2 - PCV13) [facility] Start: 2009 RSV High Risk: (Elderly (60+) or Population) (1 - Risk 60-74 years 1-dose series) RSV High Risk: (Elderly (60+) or Population) (1 - Risk 60-74 years 1-dose series) [facility] Start: 2009 RSV patients and/or patients aged 60+ years (1 - 1-dose 60+ series) RSV patients and/or patients aged 60+ years (1 - 1-dose 60+ series) [facility] Start: 2009 RSV Vaccine (1 - 1-dose 60+ series) RSV Vaccine (1 - 1-dose 60+ series) [facility] Start: 1999 Administration of herpes zoster vaccine Zoster Vaccines (1 of 2) [facility] Start: 1999 Screening for malignant neoplasm of colon [facility] Start: 1999 SHINGRIX VACCINE (1 of 2) SHINGRIX VACCINE (1 of 2) [facility] Start: 1994 COLOGUARD (FIT-DNA) COLOGUARD (FIT-DNA) [facility] Start: 1994 Colonoscopy COLONOSCOPY [facility] Start: 1994 COLORECTAL CANCER SCREENING COLORECTAL CANCER SCREENING [facility] Start: [address] COLONOGRAPHY [facility] Start: 1994 FECAL OCCULT BLOOD FECAL OCCULT BLOOD [facility] Start: 1994 Screening for malignant neoplasm of colon [facility] Start: 1994 SIGMOIDOSCOPY SIGMOIDOSCOPY [facility] Start: 1971 DTaP/Tdap/Td Vaccines (1 - Tdap) DTaP/Tdap/Td Vaccines (1 - Tdap) [facility] Start: 1968 Urine microalbumin profile [facility] Start: 1967 ANNUAL PCP TEAM CHRONIC DISEASE VISIT ANNUAL PCP TEAM CHRONIC DISEASE VISIT [facility] Start: 1967 Anxiety Screening Anxiety Screening [facility] Start: 1967 BP Controlled (<130/80) BP Controlled (<130/80) [facility] Start: 1967 Depression Screening Depression Screening [facility] Start: 1967 Hepatitis B surface antibody level LDL CHOLESTEROL [facility] Start: 1967 Hepatitis C antibody, confirmatory test Hepatitis C Screening [facility] Start: 1967 HEPATITIS C SCREENING HEPATITIS C SCREENING [facility] Start: 1967 Hepatitis C screening Hepatitis C Screening [facility] Start: 1965 COVID-19 Vaccine (1 of 2) COVID-19 Vaccine (1 of 2) [facility] Start: 1961 Adolescent depression screening assessment Depression Screening (PHQ9) [facility] Start: 1959 3 comp foot exam completed DIABETIC FOOT EXAM [facility] Start: 1959 Diabetic foot examination [facility] Start: 1959 Glaucoma screening Diabetes: Retinopathy Screening [facility] Start: 1959 Hepatitis B screening URINE ALBUMIN:CREATININE RATIO [facility] Start: 1959 Ophthalmic examination and evaluation Diabetes: Retinopathy Screening [facility] Start: 1956 DTaP/Tdap/Td Vaccines (1 - Tdap) DTaP/Tdap/Td Vaccines (1 - Tdap) [facility] Start: 1955 PNEUMOCOCCAL: 65+ (1 - PCV) PNEUMOCOCCAL: 65+ (1 - PCV) [facility] Start: 1952 History and physical examination, annual for health maintenance Wellness Visit [facility] Start: 01-13-1950 Examination of skin Derm Melanoma Skin Check [facility] Start: 1949 Fall risk assessment Falls Risk Assessment [facility] Start: 1949 Hepatitis C antibody, confirmatory test Hepatitis C Screening [facility] Start: 1949 Medicare Annual Wellness Visit Medicare Annual Wellness Visit (AWV) [facility] Start: 1949 Prostate specific antigen measurement PSA Level [facility] Start: 1949 Screening for malignant neoplasm of colon [facility] Start: 1949 Tetanus vaccination Tetanus: Every 10yrs [facility] Cardiac device check - In Clinic [facility] Service Area Work Phone: End: 05-04-2024 Cardiac Device Check - Remote [facility] Servi Area Work Phone: Comment on above: Once for 1 Occurrences starting 05/04/20 until 05/04/2024 End: 08-30-2024 Cardiac Device Check - Remote [facility] Comment on above: Once for 1 Occurrences starting 08/30/19 until 08/30/2024 End: 03-16-2024 CT for calcium scoring WO contrast and CTA W contrast IV Heart and coronary arteries [facility] Service Area Work Phone: Comment on above: Once for 1 Occurrences starting 03/16/20 until 03/16/2024 End: 08-15-2024 CT Pelvis W contrast IV [facility] Are a Work Phone: Comment on above: Once for 1 Occurrences starting 08/15/19 until 08/15/2024 CT Pelvis W contrast IV [facility] ECG 12 Lead ECG 12 Lead ECG STAT 10/14/2023 2:31 PM EDT [facility] Area Work Phone: ECG 12 lead STAT ECG 12 lead STA T ECG STAT 05/02/2024 1:45 PM T [facility] Work Phone: ECG 12 lead STAT ECG 12 lead STA T ECG STAT 05/02/2024 5:30 PM T [facility] Work Phone: End: 05-03-2024 ECG 12 lead tomorrow at 8 AM [facility] Servic e Area Work Phone: Comment on above: Once for 1 Occurrences starting 05/03/20 until 05/03/2024 Every 1 hour for 2 O ccurrences starting 05/03/2024 until 05/03/2024 As needed until disc ontinued starting 05/03/2024 ECG 12 lead tomorrow at 8 AM ECG 12 lead tomorrow at 8 AM ECG Routine 05/03/2024 8:13 AM [facility] Work Phone: Glomerular filtratio n rate/1.73 sq M.predicted [Volume Rate/Area] in Serum, Plasma or Blood by Creatinine-based formula (CKD-EPI) [facility] End: 11-03-2023 Glucose [Mass/volume] in Serum or Plasma Glucose Lab Routine Once (Lab) for 1 Occurrences starting 11/03/2023 until 11/03/2023 [facility] Work Phone: Comment on above: Once (Lab) for 1 Occurrences starting until 11/03/2023 Glucose [Mass/volume ] in Serum or Plasma POCT Glucose Point of Care Testing - Docked Device Routine As needed (Lab) until discontinued starting 05/02/2024 [facility] Work Phone: Comment on above: As needed (Lab) until discontinued start ing 05/02/2024 Glucose [Mass/volume ] in Serum or Plasma POCT Glucose Point of Care Testing - Docked Device Routine As needed (Lab) until discontinued starting 12/29/2023 [facility] Work Phone: Comment on above: As needed (Lab) until discontinued start ing 12/29/2023 End: 03-08-2024 Holter monitor study [facility] Work Phone: Comment on above: Once for 1 Occurrences starting 03/08/20 until 03/08/2024 Ins new/rplcmt prm p m w/transv eltrd atrial&vent PPM IMPLANT DC Sinus bradycardia Essential hypertension H/O syncope [facility] [place] End: 11-03-2023 Moderate Sedation Moderate Sedation Procedures Routine Once for 1 Occurrences starting 11/03/2023 until 11/03/2023 [facility] Work Phone: Comment on above: Once for 1 Occurrences starting 11/03/19 until 11/03/2023 MR Prostate MR prostate with jerri boundaries Imaging Routine Elevated PSA 12/03/2023 12:50 PM EDT [facility] Work Phone: Patient referral [facility] Work Phone: End: 11-03-2023 Pulse oximetry, continuous Pulse oximetry, continuous Respiratory Care Routine Continuous until discontinued starting 11/03/2023 [facility] Work Phone: Comment on above: Continuous until discontinued starting 0 11/03/2023 End: 11-03-2023 Pulse oximetry, spot Pulse oximetry, spot Respiratory Care Routine Once for 1 Occurrences starting 11/03/2023 until 11/03/2023 [facility] Work Phone: Comment on above: Once for 1 Occurrences starting 11/03/19 24 until 11/03/2023 Surgical pathology study [facility] Work Phone: Comment on above: Release Upon Ordering for 1 Occurrences starting 11/03/2023 Surgical pathology study Surgica l Pathology Exam Pathology and Cytology Timed Elevated PSA Release Upon Ordering for 1 Occurrences starting 12/29/2023 [facility] Service Area Work Phone: Comment on above: Release Upon Ordering for 1 Occurrences starting 12/29/2023 [facility] Work Phone: [facility] NEGATED: Highlighted row has been ruled out! Planned Goals not documented [facility] Work Phone: Immunizations Immunization Date Immunization Notes Care Provider Fa ugo 07-25-2024 Pneumococcal conjuga te PCV21, polysaccharide [id number] conjugate, PF [facility] Work Phone: 07-25-2024 pneumococcal vaccine , unspecified formulation [facility] Work Phone: 07-25-2024 RESPIRATORY SYNCYTIA L VIRUS (RSV), ELIGIBLE PTS, 0.5 ML (ABRYSVO) [facility] Work Phone: 07-13-2024 diphtheria, tetanus toxoids and acellular pertussis vaccine, unspecified formulation [facility] 07-13-2024 influenza, high dose seasonal, preservative-free Alli Orona MD Work Phone: [facility] 07-13-2024 tetanus toxoid, redu roque diphtheria toxoid, and acellular pertussis vaccine, adsorbed Alli Orona MD Work Phone: [facility] 03-22-2021 Fluzone High-Dose Quadrivalent 0.7 ML Intramuscular Suspension Prefilled Syringe Segundo Malloy Work Phone: [facility] Work Phone: 03-22-2021 influenza, seasonal, injectable Alli Orona MD Work Phone: [facility] Work Phone: 03-22-2021 influenza virus vaccine, unspecified formulation Alli Orona MD Work Phone: [facility] Work Phone: 11-19-2020 zoster vaccine recombinant Segundo Louise Mallapareddi Work Phone: [facility] 10-04-2020 Moderna COVID-19 Vaccine 100 MCG/0.5ML Intramuscular Suspension Segundo Louise Mallapareddi Work Phone: [facility] Comment on above: Series: 09-06-2020 Moderna COVID-19 Vaccine 100 MCG/0.5ML Intramuscular Suspension Segundo Louise Mallapareddi Work Phone: [facility] Comment on above: Series: 04-06-2020 Fluad Quadrivalent 0 .5 ML Intramuscular Prefilled Syringe Segundo Louise Malldhavalreddi Work Phone: [facility] Work Phone: 04-06-2020 zoster vaccine recombinant Segundo Louise Mallapareddi Work Phone: [facility] 09-06-2019 pneumococcal polysaccharide vaccine, 23 valent Segundo Louise Mallapareddi Work Phone: [facility] Work Phone: Comment on above: Series: 09-06-2019 influenza, high dose seasonal, preservative-free; Translations: [Fluzone High-Dose 0.5 ML Intramuscular Suspension Prefilled Syringe] Alli Orona II [facility] Work Phone: Comment on above: Series: 05-14-2017 influenza, injectabl e, quadrivalent, preservative free Segudno Louise Mallapareddi Work Phone: [facility] Work Phone: 04-19-2015 influenza, high dose seasonal, preservative-free Chris Crane MD Work Phone: [facility] Payers Date Payer Category Payer Self-pay 2021 Medicare (Managed Care) [employer] GO EN MEDICARE [id number] 2021 Private Health Insurance [id number] 2021 Private Health Insurance [id number] 2019 Medicare AETNA MANAGED ME DICARE AETNA MEDICARE PLAN (PPO) [id number] 2019-Present [id number] 2019 Medicare [id number] 2019 Medicare AETNA MANAGED ME DICARE AETNA MEDICARE PLAN (PPO) [id number] 2019-Present [id number]. [id number] 2017 Medicare 1950 Unknown [id number] 2.16.840.1.634230.3.579.2. 584 1950 Unknown [id number] 2.16.840.1.140572.3.579.2. 584 1949 Unknown [id number] 2.16.840.1.008886.3.579.2. 903 1949 Unknown [id number] 2.16.840.1.653309.3.579.2. 903 1949 Unknown [id number] 2.16.840.1.133057.3.579.2. 1068 1949 Unknown [id number] 2.16.840.1.715176.3.579.2. 1068 1949 Unknown [id number] 2.16.840.1.755774.3.579.2. 1068 1949 Unknown [id number] 2.16.840.1.719123.3.579.2. 1068 1949 Unknown [id number] 2.16.840.1.696439.3.579.2. 1068 1949 Unknown [id number] 2.16.840.1.360568.3.579.2. 1068 1949 Unknown [id number] 2.16.840.1.391691.3.579.2. 1068 1949 Unknown [id number] 2.16.840.1.669030.3.579.2. 1068 1949 Unknown [id number] 2.16.840.1.060053.3.579.2. 1068 1949 Unknown [id number] 2.16.840.1.244764.3.579.2. 1068 1949 Unknown [id number] 2.16.840.1.372623.3.579.2. 1068 1949 Unknown [id number] 2.16.840.1.908677.3.579.2. 1068 1949 Unknown [id number] 2.16.840.1.115601.3.579.2. 1068 1949 Unknown [id number] 2.16.840.1.104069.3.579.2. 1068 1949 Unknown [id number] 2.16.840.1.171927.3.579.2. 1068 1949 Unknown [id number] 2.16.840.1.405426.3.579.2. 1246 1949 Unknown [id number] 2.16.840.1.978509.3.579.2. 1244 1949 Unknown [id number] 2.16.840.1.073041.3.579.2. 1244 1949 Unknown [id number] 2.16.840.1.059837.3.579.2. 1244 1949 Unknown [id number] 2.16.840.1.282884.3.579.2. 1244 1949 Unknown [id number] 2.16.840.1.686455.3.579.2. 1244 1949 Unknown [id number] 2.16.840.1.474204.3.579.2. 1244 1949 Unknown [id number] 2.16840.1.753471.3.579.2. 1244 1949 Unknown [id number] 2.16.840.1.676809.3.579.2. 1246 1949 Unknown [id number] 2.16.840.1.796905.3.579.2. 1246 1949 Unknown [id number] 2.16.840.1.532999.3.579.2. 7 1949 Unknown [id number] 2.16.840.1.087622.3.579.2. 1246 1949 Unknown [id number] 2.16.840.1.886062.3.579.2. 1243 1949 Unknown [id number] 2.16.840.1.286869.3.579.2. 1243 1949 Unknown [id number] 2.16.840.1.446295.3.579.2. 1243 1949 Unknown [id number] 2.16.840.1.589738.3.579.2. 1243 1949 Unknown [id number] 2.16.840.1.291345.3.579.2. 1244 1949 Unknown [id number] 2.16.840.1.843013.3.579.2. 1243 1949 Unknown [id number] 2.16.840.1.173426.3.579.2. 4 1949 Unknown [id number] 2.16.840.1.720944.3.579.2. 1243 1949 Unknown [id number] 2.16.840.1.813432.3.579.2. 1243 1949 Unknown [id number] 2.16.840.1.485587.3.579.2. 1243 1949 Unknown [id number] 2.16.840.1.612173.3.579.2. 1243 1949 Unknown [id number] 2.16.840.1.656023.3.579.2. 1243 1949 Unknown [id number] 2.16.840.1.969488.3.579.2. 1243 1949 Unknown [id number] 2.16.840.1.887700.3.579.2. 1243 1949 Unknown [id number] 2.16.840.1.094165.3.579.2. 1243 1949 Unknown [id number] 2.16.840.1.666188.3.579.2. 1243 1949 Unknown [id number] 2.16.840.1.427991.3.579.2. 1243 1949 Unknown [id number] 2.16.840.1.312476.3.579.2. 1243 1949 Unknown [id number] 2.16.840.1.799054.3.579.2. 1242 1949 Unknown [id number] 2.16.840.1.630412.3.579.2. 1242 1949 Unknown [id number] 2.16.840.1.432119.3.579.2. 1242 1949 Unknown [id number] 2.16.840.1.552183.3.579.2. 1242 1949 Unknown [id number] 2.16.840.1.894227.3.579.2. 1242 1949 Unknown [id number] 2.16.840.1.655590.3.579.2. 1242 1949 Unknown [id number] 2.16.840.1.724387.3.579.2. 1242 1949 Unknown [id number] 2.16.840.1.256019.3.579.2. 1242 1949 Unknown [id number] 2.16.840.1.573176.3.579.2. 1242 1949 Unknown [id number] 2.16.840.1.878895.3.579.2. 1242 1949 Unknown [id number] 2.16.840.1.478912.3.579.2. 1242 1949 Unknown [id number] 2.16.840.1.967116.3.579.2. 1242 1949 Unknown [id number] 2.16.840.1.208308.3.579.2. 1242 1949 Unknown [id number] 2.16.840.1.090987.3.579.2. 1242 1949 Unknown [id number] 2.16.840.1.894545.3.579.2. 1242 1949 Unknown [id number] 2.16.840.1.560639.3.579.2. 1242 1949 Unknown [id number] 2.16.840.1.518557.3.579.2. 1242 1949 Unknown [id number] 2.16.840.1.694629.3.579.2. 1242 Unknown AETNA Unknown [id number] 2.16.840.1.908978.3.579.2. 462 Unknown [id number] 2.16.840.1.734608.3.579.2. 462 Unknown [id number] 2.16.840.1.488558.3.579.2. 462 Social History Date Type Detail Facility Start: 01-04-2020 End: 11-24-2024 Tobacco smoking status NHIS Never smoker [facility] Start: 01-04-2020 Alcohol intake Ex-drinker (finding) [facility] Sex Assigned At Not on file [facility] Start: 05-24-2022 End: 11-29-2024 Exposure to SARS-CoV-2 (event) Not sure [facility] Start: 01-04-2020 End: 09-12-2022 Tobacco use and exposure Never used [facility] Start: 05-20-2023 End: 05-02-2024 Never a smoker Never a smoker [facility] Work Phone: Start: 06-03-2022 End: 07-25-2024 Alcohol intake Current non-drinker of alcohol (finding) [facility] Start: 1950 Sex Assigned At Male [facility] Start: 05-20-2023 End: 11-24-2024 Alcohol intake Lifetime non-drinker (finding) [facility] Work Phone: Start: 05-20-2023 End: 05-02-2024 Tobacco use panel [facility] Work Phone: Start: 08-11-2020 Gender identity Identifies as male gender (finding) [facility] Work Phone: Start: 08-11-2020 Sexual orientation Heterosexual (fin ding) [facility] Work Phone: National Score (1-100), lower number is lower risk 89 [facility] Has the [employer], gas, oil, or water company threatened to shut off services in your home in past 12Mo No [facility] How often to you hav e a drink containing alcohol? Never [facility] Work Phone: How hard is it for you to pay for the very basics like food, housing, medical care, and heating Not very hard [facility] Work Phone: (I/We) worried whether (my/our) food would run out before (I/we) got money to buy more. Never true [facility] Work Phone: NEGATED: Highlighted row - - -[facility] Work Phone: Medical Equipment Procedure Code Equipment Code Equipment Origin al Text Equipment Identifier Dates Accu-Chek FastCl ix Lancets check blood sugar every mourning. Quantity: 1 Refills: 3 Alan Whiteside Start : 21-Nov-2019 Active 102 Unit Box Start: 11-21-2019 FreeStyle Lite T est In Vitro Strip TEST BLOOD SUGAR DAILY - FIRST THING IN THE MORNING BEFORE BREAKFAST Quantity: 1 Refills: 3 Alan Whiteside Start : 21-Nov-2019 Active 100 Strip Box Start: 11-21-2019 Accu-Chek FastCl ix Lancets check blood sugar every mourning. Quantity: 1 Refills: 3 Alan Whiteside Start : 21-Nov-2019 Active 102 Unit Box Start: 11-21-2019 FreeStyle Lite T est In Vitro Strip TEST BLOOD SUGAR DAILY - FIRST THING IN THE MORNING BEFORE BREAKFAST Quantity: 1 Refills: 3 Alan Whiteside Start : 21-Nov-2019 Active 100 Strip Box Start: 11-21-2019 Accu-Chek FastCl ix Lancets check blood sugar every mourning. Quantity: 1 Refills: 3 Alan Whiteside MD Start : 21-Nov-2019 Active 102 Unit Box Start: 11-21-2019 FreeStyle Lite T est In Vitro Strip TEST BLOOD SUGAR DAILY - FIRST THING IN THE MORNING BEFORE BREAKFAST Quantity: 1 Refills: 3 Alan Whiteside MD Start : 21-Nov-2019 Active 100 Strip Box Start: 11-21-2019 TEST BLOOD SUGAR DAILY - FIRST THING IN THE MORNING BEFORE BREAKFAST [id number] Start: 09-23-2022 Check blood suga r every morning [id number] Start: 09-23-2022 TEST BLOOD SUGAR DAILY - FIRST THING IN THE MORNING BEFORE BREAKFAST [id number] Start: 09-04-2023 Check blood suga r every morning [id number] Start: 09-04-2023 Lead, Capsurefix Novus, 58 Cm - [id number] Start: 05-02-2024 Lead, Capsurefix Novus, 52 Cm - [id number] Start: 05-02-2024 Pacemaker, Dual Chamber, Adriana Mri Xt Dr - [id number] Start: 05-02-2024 TEST BLOOD SUGAR DAILY - FIRST THING IN THE MORNING BEFORE BREAKFAST [id number] Start: 11-21-2019 Check blood suga r every morning [id number] TEST BLOOD SUGAR DAILY - FIRST THING IN THE MORNING BEFORE BREAKFAST [id number] Start: 09-01-2024 Check blood suga r every morning [id number] Start: 09-01-2024 Goals Date Patient Goal Desired Activity /State Functional Status Date Assessment Result Facility NEGATED: Highlighted row Functional performance Functional status health issues are not documented Disease [facility] Work Phone: Mental Status Date Assessment Result Facility 11-30-2024 Cognitive function Voice/Name [facility] Work Phone: NEGATED: Highlighted row Cognitive function [Interpretation] Cognitive status health issues are not documented Disease [facility] Work Phone: Clinical Notes 08-06-2019 to 11-30-2024 Note Date & Type Note Facility 11-30-2024 Consult note [facility] 11-30-2024 Consult note [facility] 11-30-2024 Discharge summary [facility] 11-30-2024 Consult note Note Date/Time November 30, 2024 10:43am [facility] Medical Records Department [address] [place] [address] Anesthesia Postop Eval II 11/30/24 0812 MR#: [id number] Acct: [id number] Name: ALLI THOMPSON Rep #:[id number] : 1950 74 From: Agnes Crabtree PCP: Dr. Donnell Mendoza MD Status:REG SDC Y Race: C Location: [place] [address]- Anesthesia Postop Eval I Sum Postop Eval Completion status Anesthesia document: Postop Eval 1 completed: Yes Anesthesia Postop Eval I Summary Anesthesia Postop Eval I Summary: Anesthesia Postop Eval I: Assessment Summary Airway patent Yes 11/30/24 08:04 CREDIT HISTORIAN.SOBR Spontaneous unlabored Yes 11/30/24 08:04 CREDIT HISTORIAN.SOBR respirations Mental status Awake,Calm 11/30/24 08:04 CREDIT HISTORIAN.SOBR nausea No 11/30/24 08:04 CREDIT HISTORIAN.SOBR Vomiting No 11/30/24 08:04 CREDIT HISTORIAN.SOBR Anesthesia Postop Eval I: Fluid Summary Crystalloid volume administer 500 11/30/24 08:04 CREDIT HISTORIAN.SOBR (ml) Colloids volume administered ( ml) Blood Product volume administered (ml) Total IV fluid infused 500 11/30/24 08:04 CREDIT HISTORIAN.SOBR Anesthesia Postop Eval I: Summary Notes Anesthesia Complication No 11/30/24 08:04 CREDIT HISTORIAN.SOBR Anesthesia Complication Comment: Post-operative progress note Anesthesia: Postop Eval II Evaluation Mental status: Awake Pain Level: 1 nausea: No Vomiting: No 11/30/24 0812 <Electronically signed by Agnes sultana> Date _ Agnes Leyva Signature: Date CC: ~ Signed [facility] Work Phone: 1(583) 434-322505-28-2025 Consult note Author Vic Pham [facility] Note Date/Time November 30, 2024 10:43 am [facility] Medical Records Department [address] [place] [address] Anesthesia Postop Eval I 11/30/24 0804 MR#: [id number] Acct: [id number] Name: ALLI THOMPSON Rep #:[id number] : 1950 74 From: Vic ALEMAN NA PCP: Dr. Donnell Mendoza MD Status:REG SDC Y Race: C Location: [place] [address] Anesthesia: Postop Eval I Current Vital Signs Temperature: 98.3 F Pulse Rate: 64 Blood Pressure: 109/69 Respiratory Rate: 16 Pulse Ox: 94 Oxygen Delivery Method: Room Air Assessment Airway patent: Yes Spontaneous unlabored respirations: Yes Mental status: Awake and Calm nausea: No Vomiting: No Anesthesia Complication: No Fluid Hydration Crystalloid volume administer (ml): 500 Total IV fluid infused: 500 Progress Note Anesthesia document: Postop Eval 1 completed: Yes 11/30/24803 <Electronically signed by Vic Pham CRNA> Date _ Vic Pham CRNA Cosigner Signature: Date CC: ~ Signed [facility] Work Phone: 1(292) 805-496605-28-2025 Discharge summary Author Cheko Bhatia [facility] Note Date/Time November 30, 2024 10:43 am [facility] Medical Records Department [address] [place] [id number] Instructions for Home/Discharge Instructions 11/30/24 0729 MR#: [id number] Acct: [id number] Name: ALLI THOMPSON Rep #:[id number] : 1950 74 From: Cheko Bhatia MD PCP: Dr. Donnell Mendoza MD Status:REG [facility] Discharge Instructions Diet Discharge Diet: No restrictions DC O2, CPAP, BIPAP needs Home O2 Discharge instructions: No Dressing / Incision Discharge Activity: Return to Normal Activity and May Not Drive (while taking narcotic pain medications.) Dressing / Incision Call your doctor if you observe: Fever of 101 or Higher Follow Up Care Please Follow Up With: Cheko Bhatia MD When: Call [phone] for an appointment Test Results: Test results from this visit will be discussed in further detail at your follow- up appointment, if applicable. Discharge Plan Admission Attending Provider: Cheko Bhatia Primary Care Provider: Donnell Mendoza Instructions Print Language: Palestinian Discharge Orders/Prescriptions Prescriptions: No Action Azo Cranberry Plus Probiotic 250-30-15 mg tablet 1 tab PO DAILY Lupron Depot (3 month) 11.25 mg syringe kit 11.25 mg IM [id number] amlodipine 5 mg tablet 5 mg PO QDAY aspirin 81 mg tablet,delayed release (DR/EC) 81 mg PO QHS Patient Comments: LAST DOSE 11/21/24 FOR SURGERY ON 11/30/24 atorvastatin 40 mg tablet 40 mg PO QHS lisinopril 40 mg tablet 40 mg PO QDAY metoprolol succinate 25 mg tablet extended release 24 hr 25 mg PO QDAY multivitamin Tablet 1 tab PO QAM triamterene-hydrochlorothiazid 37.5-25 mg tablet 1 tab PO QAM cyanocobalamin (vitamin B-12) 3,000 mcg capsule 1,500 mcg PO DAILY Referrals / Follow Up: Donnell Mendoza MD [Primary Care Provider] - Disposition Disposition (needs filled in before D/C Order can be placed): Home, Self Care 11/30/24728<Electronically signed by Cheko Bhatia MD>Cheko Bhatia MD CC: Dr. Donnell Mendoza MD ~ Signed [facility] Work Phone: 1([phone]) 681-629405-28-2025 History and physical note Author Cheko Bhatia [facility] Note Date/Time November 30, 2024 7:29a [facility] Medical Records Department [address] [place] [address] History & Physical Exam 11/30/24727 MR#: [id number] Acct: [id number] Name: ALLI THOMPSON Rep #:[id number] : 1950 74 From: Cheko Bhatia MD PCP: Dr. Donnell Mendoza MD Status:[facility] Location: [place] [address] HPI - General General Date of Service: 11/30/24 Chief Complaint: High risk prostate cancer HPI Narrative ALLI THOMPSON, is a 74 M who presents for placement of gold markers and spacer gel for high risk prostate cancer patient plans to continue with hormone deprivation therapy and concomitant radiation definitive therapy to prostate and lymphnodes [facility] Medical History Wears glasses Arthritis Prostate disease Blackout Non-smoker Stroke/cerebrovascular accident History of edema History of echocardiogram History of stress test Cardiology follow-up encounter Rupture of urethra Bradycardia Hyperlipemia Hypertension Nocturia Prostate cancer Home Medications ?Medication ?Instructions ?Recorded ?Last Taken ?Type amlodipine 5 mg tablet 5 mg PO QDAY 08/01/24 History aspirin 81 mg tablet,delayed 81 mg PO QHS 08/01/24 History release atorvastatin 40 mg tablet 40 mg PO QHS 08/01/24 History lisinopril 40 mg tablet 40 mg PO QDAY 08/01/2411/29 History metoprolol succinate 25 mg 25 mg PO QDAY 08/01/2411/04 History tablet,extended release 24 hr multivitamin 1 tab PO QAM 08/01/24 History triamterene 37.5 1 tab PO QAM 08/01/24 History mg-hydrochlorothiazide 25 mg tablet cranberry [id number] 1 tab PO DAILY 08/03/2411/04 History coagulans 250 mg-30 mg-15 mg tablet (Azo Cranberry Plus Probiotic) leuprolide (3 month) 11.25 mg (3 11.25 mg IM [id number] 08/03/24 08/17/24 History month) intramuscular syringe kit (Lupron Depot) cyanocobalamin (vitamin B-12) 1,500 mcg PO DAILY 11/24 Unknown History 3,000 mcg capsule Allergy/AdvReac Type Severity Reaction Status Date / Time No Known Allergies Allergy Verified 11/24/24 14:30 Surgical History History of cardiac catheterization History of biopsy History of esophagogastroduodenoscopy (EGD) History of colonoscopy History of spinal fusion History of bilateral hip replacements S/P placement of cardiac pacemaker Social History household members: spouse current occupational status: retired Smoking Status: Never smoker substance use type: does not use Vital Signs Vital Signs Vital Signs: 11/30/24 06:33 11/30/24 06:35 11/30/24 07:25 Temperature 97.7 F L 97.7 F L Temperature Source Temporal Pulse Rate 79 79 Respiratory Rate 16 16 Respiratory Pattern Normal Blood Pressure 135/87 H 135/87 H Blood Pressure Mean 103 Blood Pressure Source Monitor Blood Pressure Position Semi-Fowlers Blood Pressure Location Right Arm Pulse Ox 98 98 Oxygen Delivery Method Room Air Room Air Weight Weight: 88.8 kg Body Mass Index (BMI) 31.6 11/30/24 0729 <Electronically signed by Cheko Bhatia MD> Cosigner Signature (if applicable): CC: Dr. Donnell Mendoza MD; Dr. Cheko Bhatia MD~ Signed [facility] Work Phone: 1(828) 630-144905-28-2025 Consult note Author [facility] Note Date/Time November 30, 2024 7:25a [facility] Medical Records Department [address] [place] [address] Pre-Anesthesia Evaluation 11/30/24 0718 MR#: [id number] Acct: [id number] Name: ALLI THOMPSON Rep #:[id number] : 1950 74 From: Agustin Swanson MD PCP: Dr. Donnell Mendoza MD Status:REG SDC Y Race: C Location: [place] [address] ASA Classification* ASA Classification ASA Classification: 3 Assessment & Plan Anesthesia* Anesthesia Assessment Anesthesia Assessment: Discussed sedation and/or anesthesia options, risks, benefits, and alternatives with patient/parents/legal guardian/POA. Questions invited. The patient/parents/legal guardian/POA seems to understand and agrees to proceedwith anesthesia plan. Reviewed the physical assessment, medical history, allergy history and patient home medications list prior to surgery/procedure/anesthetic and documented any changes. Performed airway and anesthesia risk assessments. Anesthesia Type Anesthesia Type: General (General LMA. Patient does have mild aortic stenosis. Avoid increased heart rate or decrease blood pressure. Phenylephrine is drug ofchoice.) History Source History Obtained from:: Patient and Chart Anesthesia Focused Assessment* Temperature: 97.7 F Pulse Rate: 79 Blood Pressure: 135/87 Respiratory Rate: 16 Pulse Ox: 98 Oxygen Delivery Method: Room Air Airway Assessment Mouth opens: >3 cm Mallampati Score: III Teeth Condition: Caps/Crowns (Patient has several crowns. 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 When Was Last Pacemaker Check QUESTION #4 FULL TEXT: You/Your Family Experience fever (hyperthermia) with Anesthesia Last Oral Intake Last Oral intake: Last Oral Intake NPO since 00:00 11/30/24 06:35 Meds taken in AM with sips of Yes 11/30/24 06:35 water? Meds patient instructed to amlodipine 11/30/24 06:35 take am of surgery metoprolol PONV PONV - hand spray operator: PONV - hand spray operator Female No 11/24/24 14:38 HX of Motion Sickness No 11/24/24 14:38 HX of N/V After Surgery No 11/24/24 14:38 Non-Smoker Yes 11/24/24 14:38 Duration of Surgery greater No 11/24/24 14:38 than 60 minutes Number of Risk Factors 1 11/24/24 14:38 PONV Score Low Risk 11/24/24 14:38 Height & Weight Height & Weight: Anesthesia: Height & Weight Height 5 ft 6 in 11/30/24 06:35 Weight: 88.8 kg 11/30/24 06:35 Body Mass Index (BMI) 31.6 11/30/24 06:35 Respiratory Assessment Respiratory Assessment - hand spray operator: Respiratory Tract Infection Hx - hand spray operator Hx Respiratory Tract Infection No 11/24/24 14:38 STOP Sleep Apnea STOP Sleep Apnea - hand spray operator: STOP Sleep Apnea - hand spray operator Hx Hypertension Yes: PER PT, CONTROLLED ON 11/24/24 14:38 MEDS Hx Sleep Apnea No 11/24/24 14:38 CPAP BIPAP Do you snore loudly (louder No 11/24/24 14:38 than talking or can be heard Do you often feel tired/ No 11/24/24 14:38 fatigued/ sleepy during daytime? Has anyone observed you stop No 11/24/24 14:38 breathing during sleep? STOP Results Negative 11/24/24 14:38 QUESTION #5 FULL TEXT : Do you snore loudly (louder than talking or can be heard through closed doors)? Tobacco Use History Tobacco Use History - hand spray operator: Tobacco Use History - hand spray operator Tobacco Use Smoking Status Never smoker 11/24/24 14:38 Hx Tobacco Use No 11/24/24 14:38 Years Smoking Packs Smoked per Day Smoking Cessation Date was within the last 15 years Hx Smoking Cessation Date Hx Smoking Cessation Counseling Hematologic Medial History Hematologic Hx - hand spray operator: Hematologic Medical Hx - plastic surgeon Hx of Blood Transfusion No 11/24/24 14:38 Hx of Transfusion in last 3 No 11/24/24 14:38 Months Date of Last Transfusion (if within last 3 months) Ever experience any problems No 11/24/24 14:38 with transfusion(s)? Specify any problems Hx of Preganancy in last 3 N/A 11/24/24 14:38 Months Nurse Filling Out Transfusion MGRIFFITH 11/24/24 14:38 & Questions: Date: 11/24/24 11/24/24 14:38 Time: 14:42 11/24/24 14:38 Patient unable to answer at this time (ie. confused, unrespo /Reproduction History /Reproductive History - hand spray operator: /Reproductive Hx- hand spray operator Hx Now Gestational Age (in weeks): EDC: Hx Hx Para Hx Section SAB Active Medications Active Medications: Current Medications Generic Name Dose Route Start Last Admin Trade Name Lazaroq PRN Reason Stop Dose Admin Cefazolin Sodium 2 gm/ Sodium 110 mls @ 150 mls/hr 11/30/24 11:25 Chloride IV 11/30/24 12:08 INTRAOP ONE Lactated Ringer's 1,000 mls @ 15 mls/hr 11/30/24 06:15 11/30/24 06:38 IV 15 mls/hr .Q48H UMA Administration PFSH Medical History Wears glasses Arthritis Prostate disease Blackout Non-smoker Stroke/cerebrovascular accident History of edema History of echocardiogram History of stress test Cardiology follow-up encounter Rupture of urethra Bradycardia Hyperlipemia Hypertension Nocturia Prostate cancer Home Medications ?Medication ?Instructions ?Recorded ?Last Taken ?Type amlodipine 5 mg tablet 5 mg PO QDAY 08/01/24 History aspirin 81 mg tablet,delayed 81 mg PO QHS 08/01/24 History release atorvastatin 40 mg tablet 40 mg PO QHS 08/01/24 History lisinopril 40 mg tablet 40 mg PO QDAY 08/01/2411/29 History metoprolol succinate 25 mg 25 mg PO QDAY 08/01/2411/04 History tablet,extended release 24 hr multivitamin 1 tab PO QAM 08/01/24 History triamterene 37.5 1 tab PO QAM 08/01/24 History mg-hydrochlorothiazide 25 mg tablet cranberry [id number]-C-yasebrgd 1 tab PO DAILY 08/03/2411/04 History coagulans 250 mg-30 mg-15 mg tablet (Azo Cranberry Plus Probiotic) leuprolide (3 month) 11.25 mg (3 11.25 mg IM [id number] 08/03/24 08/17/24 History month) intramuscular syringe kit (Lupron Depot) cyanocobalamin (vitamin B-12) 1,500 mcg PO DAILY 11/24 Unknown History 3,000 mcg capsule Allergy/AdvReac Type Severity Reaction Status Date / Time No Known Allergies Allergy Verified 11/24/24 14:30 Surgical History History of cardiac catheterization History of biopsy History of esophagogastroduodenoscopy (EGD) History of colonoscopy History of spinal fusion History of bilateral hip replacements S/P placement of cardiac pacemaker Social History household members: spouse current occupational status: retired Smoking Status: Never smoker substance use type: does not use Review of Systems (Anesthesia) ROS Narrative System reviewed and no additional complaints, except as documented. 11/30/24724 <Electronically signed by Agustin vieyra MD> Date _ Agustin Swanson MD Cosigner Signature: Date CC: ~ Signed [facility] Work Phone: 1(670) 922-252105-28-2025 Procedure note [facility] Medical Records Department [address] [place] [id number] Operative Report 11/30/24 0752 MR#: [id number] Acct: [id number] Name: ALLI THOMPSON Rep #:[id number] : 1950 74 From: Cheko Bhatia MD PCP: Dr. 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 The penis and testicles and perineum were prepped and draped in usual sterile fashion placed an ultrasound probe into the rectum quite difficult to get the probe and was off-center but the prostate was very large. Then under ultrasound guidance I was able to place gold markers in the prostate I placed 3 gold markers in 3 different locations of the prostate the base the mid and the apex. After 3 goldmarkers were placed then we proceeded with placement of the spacer gel. His prostate was extremely fixed on exam was hard and very difficult to get the needle between the rectum and the prostate in the exact position I was finally able to get the needle between the rectum and the prostate but when I injected the spacer gel there was very little to no separation between the rectum and theprostate. I decided not to try again with anymore the spacer gel think theprostate is pretty fixed in the position spacer gel to go in but only created a small amount of space between the rectum and the prostate because of the fixed nature of the prostate. Successful placem ent of spacer gel but very little separation between the rectum the prostate. Surgical Findings: Very hard firm prostate could not get any real separation between the rectum andthe prostate and a spacer gel appear to be fixed Complications Complications: No Admit VTE Documentation VTE Present on Admission: No VTE Mechan Device Prophylaxis: SCD's VTE Pharm Prophylaxis ordered?: No 11/30/24 4359 Cosigner Signature (if applicable): CC: Dr. Donnell Mendoza MD; Dr. Cheko Bhatia MD~ Signed [facility]05-28-2025 History and physical note [facility] Medical Records Department [address] [place] [address] History & Physical Exam 11/30/2428 MR#: [id number] Acct: [id number] Name: ALLI THOMPSON Rep #:[id number] : 1950 74 From: Cheko Bhatia MD PCP: Dr. Donnell Mendoza MD Status:REG [facility] Location: [place] [address] HPI - General General Date of Service: 11/30/24 Chief Complaint: High risk prostate cancer HPI Narrative ALLI THOMPSON, is a 74 M who presents for placement of gold markers and spacer gel for high risk prostate cancer patient plans to continue with hormone deprivation therapy and concomitant radiation definitive therapy to prostate and lymphnodes [facility] Medical History Wears glasses Arthritis Prostate disease Blackout Non-smoker Stroke/cerebrovascular accident History of edema History of echocardiogram History of stress test Cardiology follow-up encounter Rupture of urethra Bradycardia Hyperlipemia Hypertension Nocturia Prostate cancer Home Medications ?Medication ?Instructions ?Recorded ?Last Taken ?Type amlodipine 5 mg tablet 5 mg PO QDAY 08/01/24 History aspirin 81 mg tablet,delayed 81 mg PO QHS 08/01/24 History release atorvastatin 40 mg tablet 40 mg PO QHS 08/01/24 History lisinopril 40 mg tablet 40 mg PO QDAY 08/01/2411/29 History metoprolol succinate 25 mg 25 mg PO QDAY 08/01/2411/04 History tablet,extended release 24 hr multivitamin 1 tab PO QAM 08/01/24 History triamterene 37.5 1 tab PO QAM 08/01/24 History mg-hydrochlorothiazide 25 mg tablet cranberry iddp-K-eexieuyl 1 tab PO DAILY 08/03/2411/04 History coagulans 250 mg-30 mg-15 mg tablet (Azo Cranberry Plus Probiotic) leuprolide (3 month) 11.25 mg (3 11.25 mg IM [id number] 08/03/24 08/17/24 History month) intramuscular syringe kit (Lupron Depot) cyanocobalamin (vitamin B-12) 1,500 mcg PO DAILY 11/24 Unknown History 3,000 mcg capsule Allergy/AdvReac Type Severity Reaction Status Date / Time No Known Allergies Allergy Verified 11/24/24 14:30 Surgical History History of cardiac catheterization History of biopsy History of esophagogastroduodenoscopy (EGD) History of colonoscopy History of spinal fusion History of bilateral hip replacements S/P placement of cardiac pacemaker Social History household members: spouse current occupational status: retired Smoking Status: Never smoker substance use type: does not use Vital Signs Vital Signs Vital Signs: 11/30/24 06:33 11/30/24 06:35 11/30/24 07:25 Temperature 97.7 F L 97.7 F L Temperature Source Temporal Pulse Rate 79 79 Respiratory Rate 16 16 Respiratory Pattern Normal Blood Pressure 135/87 H 135/87 H Blood Pressure Mean 103 Blood Pressure Source Monitor Blood Pressure Position Semi-Fowlers Blood Pressure Location Right Arm Pulse Ox 98 98 Oxygen Delivery Method Room Air Room Air Weight Weight: 88.8 kg Body Mass Index (BMI) 31.6 11/30/24 0729 Cosigner Signature (if applicable): CC: Dr. Donnell Mendoza MD; Dr. Cheko Bhatia MD~ Signed [facility]05-28-2025 [facility] Medical Records Department [address] [place] [address] History Physical Exam 11/30/24 0728 MR#: [id number] Acct: [id number] Name: ALLI THOMPSON Rep #: [id number] : 1950 74 From: Cheko Bhatia MD PCP: Dr. Donnell Mendoza MD Status:[facility] Location: [place] [address] HPI - General General Date of Service: 11/30/24 Chief Complaint: High risk prostate cancer HPI Narrative ALLI THOMPSON, is a 74 M who presents for placement of gold markers and spacer gel for high risk prostate cancer patient plans to continue with hormone deprivation therapy and concomitant radiation definitive therapy to prostate and lymph nodes [facility] Medical History Wears glasses Arthritis Prostate disease Blackout Non-smoker Stroke/cerebrovascular accident History of edema History of echocardiogram History of stress test Cardiology follow-up encounter Rupture of urethra Bradycardia Hyperlipemia Hypertension Nocturia Prostate cancer Home Medications ???Medication ???Instructions ???Recorded ???Last Taken ???Type amlodipine 5 mg tablet 5 mg PO QDAY 08/01/24 11/30/24 His tory aspirin 81 mg tablet,delayed 81 mg PO QHS 08/01/24 11/21/24 His tory release atorvastatin 40 mg tablet 40 mg PO QHS 08/01/24 11/29/24 His tory lisinopril 40 mg tablet 40 mg PO QDAY 08/01/24 11/29/24 Hi story metoprolol succinate 25 mg 25 mg PO QDAY 08/01/24 11/30/24 Hi story tablet,extended release 24 hr multivitamin 1 tab PO QAM 08/01/24 11/28/24 His tory triamterene 37.5 1 tab PO QAM 08/01/24 11/29/24 His tory mg-hydrochlorothiazide 25 mg tablet cranberry tdms-C-keszplgs 1 tab PO DAILY 08/03/24 11/28/24 H istory coagulans 250 mg-30 mg-15 mg tablet (Azo Cranberry Plus Probiotic) leuprolide (3 month) 11.25 mg (3 11.25 mg IM [id number] 08/03/2408/06 History month) intramuscular syringe kit (Lupron Depot) cyanocobalamin (vitamin B-12) 1,500 mcg PO DAILY 11/24/24 Unknow n History 3,000 mcg capsule Allergy/AdvReac Type Severity Reaction Status Date / Time No Known Allergies Allergy Verified 11/24/24 14:30 Surgical History History of cardiac catheterization History of biopsy History of esophagogastroduodenoscopy (EGD) History of colonoscopy History of spinal fusion History of bilateral hip replacements S/P placement of cardiac pacemaker Social History household members: spouse current occupational status: retired Smoking Status: Never smoker substance use type: does not use Vital Signs Vital Signs Vital Signs: 11/30/24 06:33 11/30/24 06:35 11/30/24 07:25 Temperature 97.7 F L 97.7 F L Temperature Source Temporal Pulse Rate 79 79 Respiratory Rate 16 16 Respiratory Pattern Normal Blood Pressure 135/87 H 135/87 H Blood Pressure Mean 103 Blood Pressure Source Monitor Blood Pressure Position Semi-Fowlers Blood Pressure Location Right Arm Pulse Ox 98 98 Oxygen Delivery Method Room Air Room Air Weight Weight: 88.8 kg Body Mass Index (BMI) 31.6 11/30/2429 Cosigner Signature (if applicable): CC: Dr. Donnell Mendoza MD; Dr. Cheko Bhatia [facility] Medical Records Department [address] [place] [address] Pre-Anesthesia Evaluation 11/30/2418 MR#: [id number] Acct: [id number] Name: ALLI THOMPSON Rep #:[id number] : 1950 74 From: Agustin Swanson MD PCP: Dr. Donnell Mendoza MD Status:REG [facility] Y Race: C Location: [place] [address] ASA Classification* ASA Classification ASA Classification: 3 Assessment & Plan Anesthesia* Anesthesia Assessment Anesthesia Assessment: Discussed sedation and/or anesthesia options, risks, benefits, and alternatives with patient/parents/legal guardian/POA. Questions invited. The patient/parents/legal guardian/POA seems to understand and agrees to proceedwith anesthesia plan. Reviewed the physical assessment, medical history, allergy history and patient home medications list prior to surgery/procedure/anesthetic and documented any changes. Performed airway and anesthesia risk assessments. Anesthesia Type Anesthesia Type: General (General LMA. Patient does have mild aortic stenosis. Avoid increased heart rate or decrease blood pressure. Phenylephrine is drug ofchoice.) History Source History Obtained from:: Patient and Chart Anesthesia Focused Assessment* Temperature: 97.7 F Pulse Rate: 79 Blood Pressure: 135/87 Respiratory Rate: 16 Pulse Ox: 98 Oxygen Delivery Method: Room Air Airway Assessment Mouth opens: >3 cm Mallampati Score: III Teeth Condition: Caps/Crowns (Patient has several crowns. 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 When Was Last Pacemaker Check QUESTION #4 FULL TEXT: You/Your Family Experience fever (hyperthermia) with Anesthesia Last Oral Intake Last Oral intake: Last Oral Intake NPO since 00:00 11/30/24 06:35 Meds taken in AM with sips of Yes 11/30/24 06:35 water? Meds patient instructed to amlodipine 11/30/24 06:35 take am of surgery metoprolol PONV PONV - hand spray operator: PONV - hand spray operator Female No 11/24/24 14:38 HX of Motion Sickness No 11/24/24 14:38 HX of N/V After Surgery No 11/24/24 14:38 Non-Smoker Yes 11/24/24 14:38 Duration of Surgery greater No 11/24/24 14:38 than 60 minutes Number of Risk Factors 1 11/24/24 14:38 PONV Score Low Risk 11/24/24 14:38 Height & Weight Height & Weight: Anesthesia: Height & Weight Height 5 ft 6 in 11/30/24 06:35 Weight: 88.8 kg 11/30/24 06:35 Body Mass Index (BMI) 31.6 11/30/24 06:35 Respiratory Assessment Respiratory Assessment - hand spray operator: Respiratory Tract Infection Hx - hand spray operator Hx Respiratory Tract Infection No 11/24/24 14:38 STOP Sleep Apnea STOP Sleep Apnea - hand spray operator: STOP Sleep Apnea - hand spray operator Hx Hypertension Yes: PER PT, CONTROLLED ON 11/24/24 14:38 MEDS Hx Sleep Apnea No 11/24/24 14:38 CPAP BIPAP Do you snore loudly (louder No 11/24/24 14:38 than talking or can be heard Do you often feel tired/ No 11/24/24 14:38 fatigued/ sleepy during daytime? Has anyone observed you stop No 11/24/24 14:38 breathing during sleep? STOP Results Negative 11/24/24 14:38 QUESTION #5 FULL TEXT : Do you snore loudly (louder than talking or can be heard through closeddoors)? Tobacco Use History Tobacco Use History - hand spray operator: Tobacco Use History - hand spray operator Tobacco Use Smoking Status Never smoker 11/24/24 14:38 Hx Tobacco Use No 11/24/24 14:38 Years Smoking Packs Smoked per Day Smoking Cessation Date was within the last 15 years Hx Smoking Cessation Date Hx Smoking Cessation Counseling Hematologic Medial History Hematologic Hx - hand spray operator: Hematologic Medical Hx - plastic surgeon Hx of Blood Transfusion No 11/24/24 14:38 Hx of Transfusion in last 3 No 11/24/24 14:38 Months Date of Last Transfusion (if within last 3 months) Ever experience any problems No 11/24/24 14:38 with transfusion(s)? Specify any problems Hx of Preganancy in last 3 N/A 11/24/24 14:38 Months Nurse Filling Out Transfusion MGRIFFITH 11/24/24 14:38 & Questions: Date: 11/24/24 11/24/24 14:38 Time: 14:42 11/24/24 14:38 Patient unable to answer at this time (ie. confused, unrespo /Reproduction History /Reproductive History - hand spray operator: /Reproductive Hx- hand spray operator Hx Now Gestational Age (in weeks): EDC: Hx Hx Para Hx Section SAB Active Medications Active Medications: Current Medications Generic Name Dose Route Start Last Admin Trade Name Freq PRN Reason Stop Dose Admin Cefazolin Sodium 2 gm/ Sodium 110 mls @ 150 mls/hr 11/30/24 11:25 Chloride IV 11/30/24 12:08 INTRAOP ONE Lactated Ringer's 1,000 mls @ 15 mls/hr 11/30/24 06:15 11/30/24 06:38 IV 15 mls/hr .Q48H UMA Administration PFSH Medical History Wears glasses Arthritis Prostate disease Blackout Non-smoker Stroke/cerebrovascular accident History of edema History of echocardiogram History of stress test Cardiology follow-up encounter Rupture of urethra Bradycardia Hyperlipemia Hypertension Nocturia Prostate cancer Home Medications ?Medication ?Instructions ?Recorded ?Last Taken ?Type amlodipine 5 mg tablet 5 mg PO QDAY 08/01/24 History aspirin 81 mg tablet,delayed 81 mg PO QHS 08/01/24 History release atorvastatin 40 mg tablet 40 mg PO QHS 08/01/24 History lisinopril 40 mg tablet 40 mg PO QDAY 08/01/2411/29 History metoprolol succinate 25 mg 25 mg PO QDAY 08/01/2411/04 History tablet,extended release 24 hr multivitamin 1 tab PO QAM 08/01/24 History triamterene 37.5 1 tab PO QAM 08/01/24 History mg-hydrochlorothiazide 25 mg tablet cranberry emut-A-gmqlnenu 1 tab PO DAILY 08/03/2411/04 History coagulans 250 mg-30 mg-15 mg tablet (Azo Cranberry Plus Probiotic) leuprolide (3 month) 11.25 mg (3 11.25 mg IM [id number] 08/03/24 08/17/24 History month) intramuscular syringe kit (Lupron Depot) cyanocobalamin (vitamin B-12) 1,500 mcg PO DAILY 11/24 Unknown History 3,000 mcg capsule Allergy/AdvReac Type Severity Reaction Status Date / Time No Known Allergies Allergy Verified 11/24/24 14:30 Surgical History History of cardiac catheterization History of biopsy History of esophagogastroduodenoscopy (EGD) History of colonoscopy History of spinal fusion History of bilateral hip replacements S/P placement of cardiac pacemaker Social History household members: spouse current occupational status: retired Smoking Status: Never smoker substance use type: does not use Review of Systems (Anesthesia) ROS Narrative System reviewed and no additional complaints, except as documented. 11/30/24724 azalia KRISHNAN> Date _ Agustin Swanson MD Cosigner Signature: Date CC: ~ Signed [facility]04-01-2025 History of Present illness Narrative* Toby Hudson MD - 10/04/2024 10:15 AM EDT No chief complaint on file. HPI: I was requested by Dr. Mendoza to evaluate this patient in consultation for cardiac assessment. Mr. Alli Thompson is a 74 y.o. year old non-smoker diabetic male patient with past medical history significant for SSS S/P dcPPM (04/2024 - Dr. Bernal), Multivessel CAD (conservative treatment), hypertension, type 2 diabetes mellitus, hyperlipidemia, prior stroke, arthritis, BPH, coming for assessment of severe sinus bradycardia. Patient heart rate usually on the 30s, he is mostly asymptomatic, only had 1 episode of surgery where he got dizziness but did not had syncopal episodes. He denies chest pain, shortness of breath, palpitations, leg edema, lightheadedness, headaches, fever, chills, orthopnea, paroxysmal nocturnal dyspnea or syncope. EKG shows bradycardic sinus rhythm with no signs of acute ischemic changes. Echo (03/2024): 1. The left ventricular systolic function is normal, with a Jerez's biplane calculated ejection fraction of 68%. 2. Left ventricular diastolic filling was indeterminate. 3. There is moderate concentric left ventricular hypertrophy. 4. There is normal right ventricular global systolic function. 5. Mild aortic valve stenosis. 6. Patient is bradycardic at the time of the echocardiogram. 7. No major changes compared to prior echocardiogram 12/22/2019. CT calcium scoring is 10,296 Left Heart Catheterization (03/25/2024): Multivessel coronary artery disease Mid LAD 95% calcified lesion; mid 1st OM 95% calcified lesion Mid 1st OM 95% calcified lesion Prox RCA 80% calcified lesion; distal RCA 95% diffusely calcified lesion Chronic total occlusion mid PDA; collateral circulation to PDA Preserved LV systolic function This case has been extensively discussed between the cardiac surgery team (Dr. Marie), electrophysiology team (Dr. Bernal) and interventional cardiology team. As the patient is asymptomatic at this point, our decision was to keep conservative treatment for the coronary lesions at this point with GMDT, once the heavily calcified lesions are not feasible for CABG or PCI without major risks for an asymptomatic patient. We have moved forward with the pacemaker placement so that we could work on his medication, especially beta-bahman titration. He is currently asymptomatic. S/P dcPPM (04/2024 - Dr. Bernal). Past Medical History Past Medical History: Diagnosis Date Arthritis Benign prostatic hyperplasia Diabetes mellitus (Multi) Elevated PSA Hyperlipidemia Hypertension Stroke (Multi) Type 2 diabetes mellitus Past Surgical History Past Surgical History: Procedure Laterality Date BACK SURGERY September 2017 CARDIAC CATHETERIZATION N/A 03/25/2024 Procedure: Left Heart Cath; Surgeon: Toby Hudson MD; Location: [facility] Cardiac [place];Service: Cardiovascular; Laterality: N/A; CARDIAC CATHETERIZATION N/A 03/25/2024 Procedure: Left Ventriculography; Surgeon: Toby Hudson MD; Location: [facility] Cardiac [place]; Service: Cardiovascular; Laterality: N/A; CARDIAC ELECTROPHYSIOLOGY PROCEDURE Left 05/02/2024 Procedure: Dual Chamber PPM (63731); Surgeon: Randolph Bernal MD; Location: [facility] Cardiac [place]; Service: Electrophysiology; Laterality: Left; [employer], Magno try LBBB pacing CIRCUMCISION, PRIMARY HERNIA REPAIR November 2022 JOINT REPLACEMENT OTHER SURGICAL HISTORY 07/28/2019 Tonsillectomy OTHER SURGICAL HISTORY 07/28/2019 Hip replacement SPINE SURGERY TONSILLECTOMY WISDOM TOOTH EXTRACTION Past Family History Family History Problem Relation Name Age of Onset COPD Mother Savannah Thompson Other (cardiac pacemaker) Father Alli Thompson Heart attack Father Alli Thompson Arthritis Father Alli Thompson Cancer Father Alli Thompson Allergy History No Known Allergies Past Social History Social History Socioeconomic History Marital status: Tobacco Use Smoking status: Never Smokeless tobacco: Never Vaping Use Vaping status: Never Used Substance and Sexual Activity Alcohol use: Never Drug use: Never Sexual activity: Yes Partners: Female control/protection: None Social Drivers of Health Financial Resource Strain: Low Risk (05/02/2024) Overall Financial Resource Strain (CARDIA) Difficulty of Paying Living Expenses: Not very hard Food Insecurity: No Food Insecurity (05/02/2024) Hunger Vital Sign Worried About Running Out of Food in the Last Year: Never true Ran Out of Food in the Last Year: Never true Transportation Needs: No Transportation Needs (05/02/2024) PRAPARE - Transportation Lack of Transportation (Medical): No Lack of Transportation (Non-Medical): No Intimate Partner Violence: Not At Risk (05/02/2024) Humiliation, Afraid, Rape, and Kick questionnaire Fear of Current or Ex-Partner: No Emotionally Abused: No Physically Abused: No Sexually Abused: No Housing Stability: Low Risk (05/02/2024) Housing Stability Vital Sign Unable to Pay for Housing in the Last Year: No Number of Times Moved in the Last Year: 1 Homeless in the Last Year: No Social History Tobacco Use Smoking Status Never Smokeless Tobacco Never Review of Systems: A total of 12 systems have been reviewed and are negative except for the aforementioned findings described in HPI. Objective Data: Last Recorded Vitals: There were no vitals filed for this visit. Last Labs: CBC - 05/03/2024: 4:26 PM 8.9 14.2 177 40.8 CMP - 05/17/2024: 7:33 AM 9.5 6.5 24 --- 0.7 _ 4.2 26 78 PTT - 10/14/2023: 11:11 AM 1.1 12.7 37 TROPHS Date/Time Value Ref Range Status 05/03/2024 05:31 PM 44 0 - 20 ng/L Final 05/03/2024 04:26 PM 45 0 - 20 ng/L Final 10/14/2023 12:07 PM 5 0 - 20 ng/L Final HGBA1C Date/Time Value Ref Range Status 12/07/2023 08:09 AM 5.2 see below % Final 05/22/2023 08:29 AM 5.3 see below % Final LDLCALC Date/Time Value Ref Range Status 12/07/2023 08:09 AM 35 <=99 mg/dL Final Comment: Near Borderline AGE Desirable Optimal High High Very High 0-19 Y 0 - 109 --- 110-129 >/= 130 ---- 20-24 Y 0 - 119 --- 120-159 >/= 160 ---- >24 Y 0 - 99 100-129 130-159 160-189 >/=190 05/22/2023 08:29 AM 34 <=99 mg/dL Final Comment: Near Borderline AGE Desirable Optimal High High Very High 0-19 Y 0 - 109 --- 110-129 >/= 130 ---- 20-24 Y 0 - 119 --- 120-159 >/= 160 ---- >24 Y 0 - 99 100-129 130-159 160-189 >/=190 VLDL Date/Time Value Ref Range Status 12/07/2023 08:09 AM 10 0 - 40 mg/dL Final 05/22/2023 08:29 AM 14 0 - 40 mg/dL Final 02/21/2022 09:50 AM 17 0 - 40 mg/dL Final 08/27/2020 10:49 AM 36 0 - 40 mg/dL Final 12/30/2019 09:50 AM 27 0 - 40 mg/dL Final Patient Medications: Outpatient Encounter Medications as of 10/04/2024 Medication Sig Dispense Refill amLODIPine (Norvasc) 5 mg tablet Take 1 tablet (5 mg) by mouth once daily. 90 tablet 3 aspirin 81 mg EC tablet Take 1 tablet (81 mg) by mouth once daily. atorvastatin (Lipitor) 40 mg tablet Take 1 tablet (40 mg) by mouth once daily. 90 tablet 3 cyanocobalamin, vitamin B-12, 1,000 mcg tablet, sublingual Place 1 tablet (1,000 mcg) under the tongue once daily. FreeStyle Lite Strips strip TEST BLOOD SUGAR DAILY - FIRST THING IN THE MORNING BEFORE BREAKFAST 100 strip 3 [place]ets [facility] [place] blood sugar every morning 100 each 3 lisinopril 40 mg tablet Take 1 tablet (40 mg) by mouth once daily. 90 tablet 3 metoprolol succinate XL (Toprol-XL) 25 mg 24 hr tablet Take 0.5 tablets (12.5 mg) by mouth once daily. Do not crush or chew. 45 tablet 3 multivitamin tablet Take 1 tablet by mouth once daily. triamterene-hydrochlorothiazid (Maxzide-25) 37.5-25 mg tablet Take 1 tablet by mouth once daily. 90tablet 3 No facility-administered encounter medications on file as of 10/04/2024. Physical Exam: General: alert, oriented and in no acute distress HEENT: NC/AT; EOMI; PERRLA, external ear is normal Neck: supple; trachea midline; no masses; no JVD Chest: clear breath sounds bilaterally; no wheezing Cardio: regular rhythm, S1S2 normal, no murmurs; Pacemaker Abdomen: Soft, non-tender, non-distension, no organomegaly Extremities: no clubbing/cyanosis/edema Neuro: Grossly intact Psychiatric: Normal mood and affect Past Cardiology Results (Last 3 Years): EKG: ECG 12 lead (Clinic Performed) 08/02/2024 ECG 12 lead (Clinic Performed) 05/05/2024 ECG 12 lead 05/03/2024 ECG 12 lead 05/03/2024 ECG 12 lead tomorrow at 8 AM 05/03/2024 ECG 12 lead STAT 05/02/2024 ECG 12 lead STAT 05/02/2024 ECG 12 lead (Clinic Performed) 03/15/2024 ECG 12 lead (Clinic Performed) 02/26/2024 ECG 12 Lead 10/14/2023 Echo: Echo Results: Transthoracic Echo (TTE) Complete 03/16/2024 [place] [address] [id number], TRANSTHORACIC ECHOCARDIOGRAM REPORT Patient Name: ALLI Serenity ARLETTE Reading Physician: [id number] Ladarius Mills MD Study Date: 03/16/2024 Ordering Provider: [id number] TOBY HUDSON MRN/PID: [id number] Fellow: Nurse: Pearl Kuo RN Date of /Age: 1 1950 / 73 years Paper Cup Machine Operator: Michele Xie RDCS Gender: M Additional Staff: Height: 167.64 cm Admit Date: Weight: 81.65 kg Admission Status: Outpatient BSA / BMI: 1.91 m2 / 29.05 Department Location: [facility] Echo Lab kg/m2 Blood Pressure: 147 /60 mmHg Study Type: TRANSTHORACIC ECHO (TTE) COMPLETE Diagnosis/ICD: Bradycardia, unspecified-R00.1 CPT Codes: Echo Complete w Full Doppler-[id number] Study Detail: The following Echo studies were performed: 2D, M-Mode, Doppler and color flow. Definity used as a contrast agent for endocardial border definition and agitated saline used as a contrast agent for intraseptal flow evaluation. Total contrast used for this procedure was 1.50cc mL via IV push. PHYSICIAN INTERPRETATION: Left Ventricle: The left ventricular systolic function is normal, with a Jerez's biplane calculated ejection fraction of 68%. There are no regional wall motion abnormalities. The left ventricular cavity size is normal. There is moderate concentric left ventricular hypertrophy. Left ventricular diastolic filling was indeterminate. Left Atrium: The left atrium is mildly dilated. A bubble study using agitated saline was performed.Bubble study is negative. Right Ventricle: The right ventricle is normal in size. There is normal right ventricular global systolic function. Right Atrium: The right atrium is normal in size. Aortic Valve: The aortic valve is probably trileaflet. There is evidence of mild aortic valve stenosis. The aortic valve dimensionless index is 0.47. There is trace aortic valve regurgitation. The peak instantaneous gradient of the aortic valve is 22.1 mmHg. The mean gradient of the aortic valve is 14.0 mmHg. Mitral Valve: The mitral valve is abnormal. There is no evidence of mitral valve regurgitation. Calcified mitral annulus and leaflets. Tricuspid Valve: The tricuspid valve is structurally normal. No evidence of tricuspid regurgitation. Pulmonic Valve: The pulmonic valve is not well visualized. There is trace pulmonic valve regurgitation. Pericardium: There is no pericardial effusion noted. Aorta: The aortic root is normal. Systemic Veins: The inferior vena cava appears dilated, less than 50% IVC collapse with inspiration. CONCLUSIONS: 1. The left ventricular systolic function is normal, with a Jerez's biplane calculated ejection fraction of 68%. 2. Left ventricular diastolic filling was indeterminate. 3. There is moderate concentric left ventricular hypertrophy. 4. There is normal right ventricular global systolic function. 5. Mild aortic valve stenosis. 6. Patient is bradycardic at the time of the echocardiogram. 7. No major changes compared to prior echocardiogram 12/22/2019. QUANTITATIVE DATA SUMMARY: 2D MEASUREMENTS: Normal Ranges: Ao Root d: 3.40 cm (2.0-3.7cm) LAs: 4.10 cm (2.7-4.0cm) IVSd: 1.58 cm (0.6-1.1cm) LVPWd: 1.78 cm (0.6-1.1cm) LVIDd: 3.65 cm (3.9-5.9cm) LVIDs: 2.42 cm LV Mass Index: 129.0 g/m2 LV % FS 33.7 % LA VOLUME: Normal Ranges: LA Vol A4C: 59.2 ml (22+/-6mL/m2) LA Vol A2C: 36.7 ml LA Vol BP: 48.3 ml LA Vol Index A4C: 30.9ml/m2 LA Vol Index A2C: 19.2 ml/m2 LA Vol Index BP: 25.3 ml/m2 LA Area A4C: 20.3 cm2 LA Area A2C: 15.4 cm2 LA Major [place] A4C: 5.9 cm LA Major [place] A2C: 5.5 cm LA Volume Index: 30.6 ml/m2 LA Vol A4C: 58.4 ml LA Vol A2C: 37.4 ml LA Vol Index BSA: 25.0 ml/m2 LV SYSTOLIC FUNCTION BY 2D PLANIMETRY (MOD): Normal Ranges: EF-A4C View: 69 % (>=55%) EF-A2C View: 66 % EF-Biplane: 68 % LV EF Reported: 68 % LV DIASTOLIC FUNCTION: Normal Ranges: MV Peak E: 1.30 m/s (0.7-1.2 m/s) MV Peak A: 1.08 m/s (0.42-0.7 m/s) E/A Ratio: 1.20 (1.0-2.2) MITRAL VALVE: Normal Ranges: MV DT: 306 msec (150-240msec) AORTIC VALVE: Normal Ranges: AoV Vmax: 2.35 m/s (<=1.7m/s) AoV Peak P.1 mmHg (<20mmHg) AoV Mean P.0 mmHg (1.7-11.5mmHg) LVOT Max Kirsty: 1.15 m/s (<=1.1m/s) AoV VTI: 70.90 cm (18-25cm) LVOT VTI: 33.20 cm LVOT Diameter: 2.00 cm (1.8-2.4cm) AoV Area, VTI: 1.47 cm2 (2.5-5.5cm2) AoV Area,Vmax: 1.54 cm2 (2.5-4.5cm2) AoV Dimensionless Index: 0.47 AORTIC INSUFFICIENCY: AI Vmax: 4.09 m/s AI Half-time: 932 msec AI Decel Rate: 129.00 cm/s2 RIGHT VENTRICLE: RV Basal 4.60 cm RV Mid 2.99 cm RV Major 8.5 cm TAPSE: 26.3 mm [id number] Ladarius Mills MD Electronically signed on 03/16/2024 at 3:57:57 PM Final Cath: Cardiac Catheterization Procedure 03/25/2024 CV NCDR CATHPCI V5 COLLECTION FORM Stress Test: Nuclear Stress Test 03/08/2024 Cardiac Imaging: No results found for this or any previous visit from the past 1095 days. Assessment/Plan Mr. Alli Thompson is a 74 y.o. year old non-smoker diabetic male patient with past medical history significant for SSS S/P dcPPM (04/2024 - Dr. Bernal), Multivessel CAD (conservative treatment), hypertension, type 2 diabetes mellitus, hyperlipidemia, prior stroke, arthritis, BPH, coming for assessment of severe sinus bradycardia. Patient heart rate usually on the 30s, he is mostly asymptomatic, only had 1 episode of surgery where he got dizziness but did not had syncopal episodes. He denies chest pain, shortness of breath, palpitations, leg edema, lightheadedness, headaches, fever, chills, orthopnea, paroxysmal nocturnal dyspnea or syncope. Assessment # Asymptomatic bradycardia / Sick sinus syndrome - SSS S/P dcPPM (04/2024 - Dr. Bernal) / MultivesselCAD (conservative treatment) - Severe bradycardia ~30s. - EKG shows bradycardic sinus rhythm with no signs of acute ischemic changes. Echo (03/2024): 1. The left ventricular systolic function is normal, with a Jerez's biplane calculated ejection fraction of 68%. 2. Left ventricular diastolic filling was indeterminate. 3. There is moderate concentric left ventricular hypertrophy. 4. There is normal right ventricular global systolic function. 5. Mild aortic valve stenosis. 6. Patient is bradycardic at the time of the echocardiogram. 7. No major changes compared to prior echocardiogram 12/22/2019. - Left Heart Catheterization (03/25/2024): Multivessel coronary artery disease Mid LAD 95% calcified lesion; mid 1st OM 95% calcified lesion Mid 1st OM 95% calcified lesion Prox RCA 80% calcified lesion; distal RCA 95% diffusely calcified lesion Chronic total occlusion mid PDA; collateral circulation to PDA Preserved LV systolic function - CT calcium scoring is 10,296. - This case has been extensively discussed between the cardiac surgery team (Dr. Marie), electrophysiology team (Dr. Bernal) and interventional cardiology team. As the patient is asymptomatic at this point, our decision was to keep conservative treatment for the coronary lesions at this point with GMDT, once the heavily calcified lesions are not feasible for CABG or PCI without major risks for an as ymptomatic patient. We will them move forward with the pacemaker placement so that we can work on his medication, especially starting him on beta-bahman. - Keep ASA 81mg daily. - Keep Atorvastatin to 40mg daily. - Will increase Metoprolol succinate to 25mg daily. - Follow up in 6 months. - Follow up after pacemaker placement with Dr. Bernal. # SSS S/P dcPPM (04/2024 - Dr. Bernal) - Follow up with Dr. Bernal. # Hypertension - Controlled blood pressure. - Keep current medications including amlodipine 5mg daily, Lisinopril 40mg daily, Metoprolol succinate 25mg daily. - Patient counseled to keep a healthy lifestyle including regular exercise and low-sodium diet. - Recommended home blood pressure monitoring. - Goal of BP < 130/80mmHg. # Diabetes - Controlled by PCP. - Counseled on healthy diet and regular exercises. - Discussed need for weight loss and the benefits. - Keep current medications. # Hyperlipidemia - Controlled by PCP. - Atorvastatin 40mg daily. - Counseled on healthy diet and regular exercise. We have discussed the most common side effects of the prescribed medications, indications, drug interactions, risks, complications, and alternatives of medications/therapeutics were explained and discussed. The patient has been requested to monitor closely for any untoward side effects or complications of medications. The patient has been strongly advised to be compliant with the recommendations,all the questions and concerns have been addressed. The patient has been also instructed to call, to return sooner or to go to the emergency department if symptoms persist or get worsen. The patient voiced understanding and denies any further questions at this time. d This note was transcribed using the [employer] Dictation system. There may be grammatical, punctuation,or verbiage errors that occur with voice recognition programs. Counseling greater than 50% of visit regarding all cardiac issues. Thank you, Dr. Mendoza, for allowing me to participate in the care of this patient. Please do not hesitate to contact me with any further questions or concerns. Toby Hudson MD Cardiology [facility] Work Phone: 1([phone]) 327-802203-03-2025 History of Present illness Narrative* Leni FaustinRAVIN mcdaniels - 09/05/2024 2:30 PM EST Patient ID: Alli Thompson is a 74 y.o. male. Procedures The patient was prepped using a Betadine solution. Lidocaine jelly was instilled into the urethra. The flexible cystoscope was sterilely inserted into the urethra and formal cystoscopy performed in asystematic fashion. . For detailed findings of the procedure, please see Dr. Orona remarks below CIPRO 250MG POBID TIMES [address] 08/04/2024 IMPRESSION: 1. Limited exam due to large amount of artifact from bilateral hip prosthesis. 2. Bladder wall thickening and bladder diverticulum, as described above. 3. Soft tissue density at the level of bladder which may be related to the enlarged prostate gland that was seen on the MRI of 09/19/2022 the bladder mass can not be excluded. PROSTATE CANCER (12/2023) LUPRON GIVEN 02/10/2024 PSA 0.27 ) 0.41 (04/2024) 11.06 (11/2023) NO MASS. LARGE MEDIAN LOBE. TRABECULATION SIGNIFICANT PVR 150ML FU 6 MONTHS WITH PSA documented in this [facility] Work Phone: 1([phone]) 552-344802-12-2025 History of Present illness Narrative* Alli Orona MD - 08/17/2024 1:00 PM EST Subjective Patient ID: Alli Thompson is a 74 y.o. male. HPI Patient is here for 1 month follow up. hx of prostate cancer diagnosed 12/27. Path showed [place] 8.Recent Bone scan showed NO METS. He was recently referred to Dr. Ibrahim. He had recent CT done on 08/30. Lupron given on 02/10/24 prior to any definitive Tx because of CV issues). Most recent PSA was 0.27 on 07/30. Prior PSA was 0.41 on 04/28. Prior PSA was 11.06 (on Proscar) on 11/26. Prior PSA was 8.06 on 03/28 AND THIS WAS ON FINASTERIDE. .He is no longer on the Finasteride.... Patient had had multiple medical issues this summer and has not really thought much about definitive Tx. Hx of kidney stones. No recent sx. Denies flank pain. Denies N/V and F/C. Chronic LUTS are moderate and stable. Some urgency and frequency. Denies dysuria. Denies hematuria. Nocturia 4-5x. He has failed Uroxatral inthe past. ED is chronic. No medication for this. He recently had Pacemaker placed on 04/28. Review of Systems Constitutional: Negative for chills and fever. HENT: Negative. Eyes: Negative. Respiratory: Negative for cough and shortness of breath. Cardiovascular: Negative for chest pain and leg swelling. Gastrointestinal: Negative for nausea. Endocrine: Negative. Genitourinary: Negative for difficulty urinating. Negative except for documented in HPI Allergic/Immunologic: Negative. Neurological: Alert & oriented X 3 Hematological: Denies blood thinners Psychiatric/Behavioral: Negative. Objective Physical Exam Vitals and nursing note reviewed. Pulmonary: Effort: Pulmonary effort is normal. Abdominal: Palpations: Abdomen is soft. Tenderness: There is no abdominal tenderness. Genitourinary: Comments: Kidneys non palpable bilaterally Bladder non palpable or tender Neurological: Mental Status: He is alert. Assessment/Plan Diagnoses and all orders for this visit: Prostate cancer (Multi) Erectile dysfunction of organic origin Elevated PSA Nocturia All available PSA values reviewed, Options discussed. Questions answered. Reviewed notes from Dr Dionna Alvaerz 45mg IM given CT pelvis and MRI reviewed-CYSTO SCHEDULED TO R/O BLADDER MASS Diet changes for prostate health discussed and educational information given. Pros/Cons of prostatehealth supplements discussed. Treatment options for LUTS reviewed Discussed timed voiding. Discussed fluid and caffeine intake Treatment options for ED reviewed. Lifestyle change to help prevent UTIs discussed. Encouraged fluid intake. F/U F/U CYSTO then plan PSA in 6 months documented in this [facility] Work Phone: 1(386) 671-806001-29-2025 Evaluation note* Diagnosis Onset Date Resolution Status Admit Date Primary malignant neoplasm o f prostate with high risk of recurrence due to acute August 03, 2024 9:37am [facility] Work Phone: 1(159) 294-398201-28-2025 History of Present illness Narrative* Randolph Bernal MD - 08/02/2024 2:45 PM EST Images from the original note were not included. Cardiac Electrophysiology Office Visit Referred by Dr. Abarca ref. provider found for Chief Complaint Patient presents with PPM f/u HPI: Alli Thompson is a 74 y.o. year old male patient with h/o HTN, type 2 diabetes, HLD, prior CVA, arthritis, BPH and sinus bradycardia presenting today for follow up Objective Current Outpatient Medications Medication Instructions amLODIPine (NORVASC) 5 mg, oral, Daily aspirin 81 mg EC tablet 1 tablet, Daily atorvastatin (LIPITOR) 40 mg, oral, Daily cyanocobalamin, vitamin B-12, 1,000 mcg tablet, sublingual 1 tablet, Daily FreeStyle Lite Strips strip TEST BLOOD SUGAR DAILY - FIRST THING IN THE MORNING BEFORE BREAKFAST [place]ets [facility] [place] blood sugar every morning lisinopril 40 mg, oral, Daily metoprolol succinate XL (TOPROL-XL) 12.5 mg, oral, Daily, Do not crush or chew. multivitamin tablet 1 tablet, Daily triamterene-hydrochlorothiazid (Maxzide-25) 37.5-25 mg tablet 1 tablet, oral, Daily Visit Vitals BP 120/68 Pulse 70 Ht 1.676 m (5' 6) Wt 84.4 kg (186 lb) SpO2 97% BMI 30.02 kg/m Smoking Status Never BSA 1.98 m Physical Exam Vitals reviewed. Constitutional: Appearance: Normal appearance. HENT: Head: Normocephalic. Cardiovascular: Rate and Rhythm: Regular rhythm. Bradycardia present. Pulmonary: Effort: Pulmonary effort is normal. No respiratory distress. Breath sounds: No wheezing. Skin: General: Skin is warm and dry. Capillary Refill: Capillary refill takes less than 2 seconds. Neurological: Mental Status: He is alert. Psychiatric: Mood and Affect: Mood normal. My Interpretation of Reviewed Study(s): Echo (December 2019): Normal LV function EF 60-65%. Normal LA mildly dilated RA. No pericardial effusion 48-hour monitor service attendant (March 2024): Predominant sinus rhythm with an average heart rate of 42 bpm. Longest pause 6.8 seconds at 10:27 AM. 91% of the time spent with heart rate less than60 bpm Nuclear stress Test (March 2024): Small size perfusion defect in distal portion inferior wall that improves with rest compatible with moderate severity inducible CT Assessment/Plan #Sinus Bradycardia s/p dcPPM (Apr 2024 MDT) Patient has a Medtronic Dual chamber pacemaker. Anticipated battery longevity 11.4yrs (as of 05/31/24). RA pacing 96.7%, RV pacing 0.7%. Arrhythmias noted on interrogation: None Lead parameters stable with steady impedance and thresholds noted: stable c/t follow with device clinic as scheduled #HTN Controlled Amlodipine 5mg daily Lisinopril 40mg daily Triamterene- hydrochlorothiazide 37.5-25 Daily Return to Clinic: Patient should return to the EP Clinic in 1 year Randolph Bernal MD [facility] Cardiac Electrophysiology [email or web address] Disclaimer: This note was dictated by speech recognition, and every effort has been made to prevent any error in tobacco warehouse manager, however minor errors may be present documented in this [facility] Work Phone: [phone]) 851-726901-22-2025 History of Present illness Narrative* Alli Orona MD - 07/27/2024 9:00 AM EST Subjective Patient ID: Alli Thompson is a 74 y.o. male. Virtual or Telephone Consent An interactive audio and video telecommunication system which permits real time communications between the patient (at the originating site) and provider (at the distant site) was utilized to providethis telehealth service. Verbal consent was requested and obtained from Alli Thompson on this date, 07/27/24 for a telehealth visit. HPI Patient is here for 3 month follow up for hx of prostate cancer diagnosed 12/27. Path showed [place]8. Recent Bone scan showed NO METS. Lupron given on 02/10/24 prior to any definitive Tx because of CVissues). Most recent PSA was 0.27 on 07/30. Prior PSA was 0.41 on 04/28. Prior PSA was 11.06 (on Proscar) on 11/26. Prior PSA was 8.06 on 03/28 AND THIS WAS ON FINASTERIDE. .He is no longer on the Finasteride.... Patient had had multiple medical issues this summer and has not really thought much aboutdefinitive Tx. Hx of kidney stones. No recent sx. Denies flank pain. Denies N/V and F/C. Chronic LUTS are moderate and stable. Some urgency and frequency. Denies dysuria. Denies hematuria. Nocturia 4-5x. He has failed Uroxatral in the past. ED is chronic. No medication for this. He recently had Pacemaker placed on 04/28. Review of Systems Constitutional: Negative for chills and fever. HENT: Negative. Eyes: Negative. Respiratory: Negative for cough and shortness of breath. Cardiovascular: Negative for chest pain and leg swelling. Gastrointestinal: Negative for nausea. Endocrine: Negative. Genitourinary: Negative for difficulty urinating. Negative except for documented in HPI Allergic/Immunologic: Negative. Neurological: Alert & oriented X 3 Hematological: Denies blood thinners Psychiatric/Behavioral: Negative. Objective Physical Exam No PE done given the virtual nature of visit. Assessment/Plan Diagnoses and all orders for this visit: Prostate cancer (Multi) Erectile dysfunction of organic origin Nocturia All available PSA values reviewed, Options discussed. Questions answered. Bone scan reviewed Path report reviewed. Tx Options discussed. Pros/cons of tx options reviewed. Questions answered Pros/cons of Lupron discussed Will refer to Dr Ibrahim to discuss XRT Diet changes for prostate health discussed and educational information given. Pros/Cons of prostatehealth supplements discussed. Treatment options for LUTS reviewed-Discontinue Proscar-DONE Discussed timed voiding. Discussed fluid and caffeine intake Treatment options for ED reviewed-Observe Lifestyle change to help prevent UTIs discussed. Encouraged fluid intake. UA ordered for follow up BMP reviewed F/U 6 months with PSA Referral made to Dr Ibrahim documented in this [facility] Work Phone: [phone]) 183-899801-20-2025 NoteDate of Procedure 07/25/2024. C/D Ratio Right Eye 0.4. Left Eye 0.3. Disc Right Eye Cupping. Left Eye Cupping. Macula Right Eye Normal. Left Eye Normal. Periphery Right Eye Normal. Left Eye Normal.[id number] Telephone encounter Note* Telephone Encounter - Nettie Hamilton - 07/25/2024 9:29 AM EST Patient already had appointment scheduled for 07/25/24 [facility]01-20-2025 Miscellaneous Notes* Telephone Encounter - Nettie Hamilton - 07/25/2024 9:29 AM EST Patient already had appointment scheduled for 07/25/24 [facility] History of Present illness Narrative* Delilah Christian MD - 07/25/2024 9:19 AM EST ASSESSMENT/PLAN: 1. Glaucoma suspect of both eyes - ICD9: 365.00, ICD10: H40.003 (primary diagnosis) 2. 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 - ICD9: 377.49, ICD10: H47.391 Pachs- right eye 512 left eye 528 Glaucoma suspect based on optic disc hemorrhage 3. Optic cupping of both eyes - ICD9: 377.14, ICD10: H47.233 Monitor 4. Combined form of senile cataract of both eyes - ICD9: 366.19, ICD10: H25.813 Not visually significant at this time 5. Essential hypertension - ICD9: 401.9, ICD10: I10 6. Pacemaker - ICD9: V45.01, ICD10: Z95.0 Continue care with Cardiology 7. Arthritis - ICD9: 716.90, ICD10: M19.90 Continue care with primary care physician Follow up with Dr. Mccann in 6 months Return in one year/sooner if needed I have confirmed and edited as necessary the relevant HPI, ophthalmic history, ROS, and the neuro exam findings as obtained by others. I have seen and examined Alli Serenity Arlette. I have discussed the case and the management of this patient's care with the Resident/Fellow, if applicable. I also have reviewed and agree with the assessment and plan as stated above and agree withall of its relevant components. Delilah Christian MD documented in this encounterUk [facility]01-20-2025 NoteHNO ID: [id number] Author: DELILAH CHRISTIAN MD Service: ? Author Type: Physician Type: Progress Notes Filed: 07/25/2024 10:06 Note Text: ASSESSMENT/PLAN: 1. Glaucoma suspect of both eyes - ICD9: 365.00, ICD10: H40.003 (primary diagnosis) 2. 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 - ICD9: 377.49, ICD10: H47.391 Pachs- right eye 512 left eye 528 Glaucoma suspect based on optic disc hemorrhage 3. Optic cupping of both eyes - ICD9: 377.14, ICD10: H47.233 Monitor 4. Combined form of senile cataract of both eyes - ICD9: 366.19, ICD10: H25.813 Not visually significant at this time 5. Essential hypertension - ICD9: 401.9, ICD10: I10 6. Pacemaker - ICD9: V45.01, ICD10: Z95.0 Continue care with Cardiology 7. Arthritis - ICD9: 716.90, ICD10: M19.90 Continue care with primary care physician Follow up with Dr. Mccann in 6 months Return in one year/sooner if needed I have confirmed and edited as necessary the relevant HPI, ophthalmic history, ROS, and the neuro exam findings as obtained by others. I have seen and examined Alli Benton Arlette. I have discussed the case and the management of this patient's care with the Resident/Fellow, if applicable. I also have reviewed and agree with the assessment and plan as stated above and agree with all of its relevant components. Delilah Christian, [facility]11-21-2024 History of Present illness Narrative* Donnell Mendoza MD - 05/26/2024 9:00 AM EST Subjective Patient ID: Alli Thompson is a 73 y.o. male who presents for 3 month follow up. HPI Bradycardia dropped to 21 and and now has pacemaker and now feels less tired and sleeping better CAD S/p card catherization has 3 bv 95% blockage Has seen surgeon now medical management Home bp 120/60 Exercise work in the garage and treadmill and some weights Office bp was 144/86 S/p cva 2020 Had decreased exercise tolerance S/p caitlyn THR and lumbar stenosis Has prostate cancer will be seeing onc has received lupron PSA dropped form 11 to 0.4 Has lost 110 pounds over 2 years ago DM A1c has dropped form 7.7 to 5.2 with diet and wt loss Review of Systems Cardiovascular: Negative for chest pain. Objective BP 144/86 Pulse 86 Wt 84.4 kg (186 lb) SpO2 98% BMI 30.02 kg/m Physical Exam Constitutional: Appearance: Normal appearance. HENT: Head: Normocephalic and atraumatic. Eyes: Conjunctiva/sclera: Conjunctivae normal. Pupils: Pupils are equal, round, and reactive to light. Cardiovascular: Rate and Rhythm: Normal rate and regular rhythm. Heart sounds: Normal heart sounds. Pulmonary: Effort: Pulmonary effort is normal. Breath sounds: Normal breath sounds. Lymphadenopathy: Cervical: No cervical adenopathy. Skin: Coloration: Skin is not jaundiced. Neurological: General: No focal deficit present. Mental Status: He is alert and oriented to person, place, and time. Psychiatric: Mood and Affect: Mood normal. Behavior: Behavior normal. Thought Content: Thought content normal. Judgment: Judgment normal. Assessment/Plan Diagnoses and all orders for this visit: Essential hypertension HTN (hypertension), benign - amLODIPine (Norvasc) 5 mg tablet; Take 1 tablet (5 mg) by mouth once daily. - lisinopril 40 mg tablet; Take 1 tablet (40 mg) by mouth once daily. - Lipid Panel; Future - Basic Metabolic Panel; Future Vitamin B12 deficiency - Vitamin B12; Future Type 2 diabetes mellitus with diabetic polyneuropathy, without long-term current use of insulin - Hemoglobin A1C; Future documented in this [facility] Work Phone: 1(428) 756-766911-06-2024 Instructions* Patient Instructions* Max Mccann II, OD - 05/11/2024 3:24 PM EST Assessment and Plan H43.812 Posterior vitreous detachment of left eye (primary encounter diagnosis) H43.392 Floater, vitreous, left Comment: Posterior vitreal detachment causing new vitreal floaters. Retina flat and intact with no apparent retinal tear or traction. Discussed expected course of healing. Discussed symptoms of retinal tear/detachment and if seen patient will return to clinic without delay. Recheck healing with in July. I have confirmed and edited as necessary the relevant HPI, ophthalmic history, ROS, and the neuro exam findings as obtained by others. I have seen and examined Alli Thompson. I have discussed the case and the management of this patient's care with the Resident/Fellow, if applicable. I also have reviewed and agree with the assessment and plan as stated above and agree withall of its relevant components. [facility]24 NoteHNO ID: [id number] Author: MAX MCCANN II, OD Service: ? Author Type: PRODUCT DELIVERY SPECIALIST Type: Progress Notes Filed: 05/11/2024 15:24 Note Text: Assessment and Plan H43.812 Posterior vitreous detachment of left eye (primary encounter diagnosis) H43.392 Floater, vitreous, left Comment: Posterior vitreal detachment causing new vitreal floaters. Retina flat and intact with no apparent retinal tear or traction. Discussed expected course of healing. Discussed symptoms of retinal tear/detachment and if seen patient will return to clinic without delay. Recheck healing with Dr. Christian in July. I have confirmed and edited as necessary the relevant HPI, ophthalmic history, ROS, and the neuro exam findings as obtained by others. I have seen and examined Alli Thompson. I have discussed the case and the management of this patient's care with the Resident/Fellow, if applicable. I also have reviewed and agree with the assessment and plan as stated above and agree with all of its relevant components.[place] [address]-06-2024 NoteDate of Procedure 05/11/2024. Residential Appliance Repair Technician Information Dope Sprayer: papito. Start time: 2:46 PM. Interpretation Right Eye Normal foveal contour. Left Eye Normal foveal contour. Interval Change Right Eye Initial. Left Eye Initial. Notes No retinal traction in macular area. [id number] History of Present illness Narrative* Max Mccann II, OD - 05/11/2024 3:23 PM EST Assessment and Plan H43.812 Posterior vitreous detachment of left eye (primary encounter diagnosis) H43.392 Floater, vitreous, left Comment: Posterior vitreal detachment causing new vitreal floaters. Retina flat and intact with no apparent retinal tear or traction. Discussed expected course of healing. Discussed symptoms of retinal tear/detachment and if seen patient will return to clinic without delay. Recheck healing with in July. I have confirmed and edited as necessary the relevant HPI, ophthalmic history, ROS, and the neuro exam findings as obtained by others. I have seen and examined Alli Thompson. I have discussed the case and the management of this patient's care with the Resident/Fellow, if applicable. I also have reviewed and agree with the assessment and plan as stated above and agree withall of its relevant components. [facility]24 History of Present illness Narrative* Alli Orona MD - 05/11/2024 9:15 AM EST Subjective Patient ID: Alli Thompson is a 73 y.o. male. HPI Patient is here for 3 month follow up for hx of prostate cancer diagnosed 12/27. Recent Path showed prostate cancer. [place] 8. Recent Bone scan showed NO METS. Lupron given on 02/10/24. Most recent PSAwas 0.41 on 04/28. Prior PSA was 11.06 (on Proscar) on 11/26. Prior PSA was 8.06 on 03/28 AND THIS WAS ON FINASTERIDE. . Prior PSA was 5.14 on 08/28.On Finasteride since 04/26... Patient had had multiple medical issues this summer and has not really thought much about definitive Tx. Hx of kidney stones. No recent sx. Denies flank pain. Denies N/V and F/C. Chronic LUTS are moderate and stable. Some urgency and frequency. Denies dysuria. Denies hematuria. Nocturia 4-5x. He has failed Uroxatral in the past. ED is chronic. No medication for this. He recently had Pacemaker placed last month. Review of Systems Constitutional: Negative for chills and fever. HENT: Negative. Eyes: Negative. Respiratory: Negative for cough and shortness of breath. Cardiovascular: Negative for chest pain and leg swelling. Gastrointestinal: Negative for nausea. Endocrine: Negative. Genitourinary: Negative for difficulty urinating. Negative except for documented in HPI Allergic/Immunologic: Negative. Neurological: Alert & oriented X 3 Hematological: Denies blood thinners Psychiatric/Behavioral: Negative. Objective Physical Exam Vitals and nursing note reviewed. Pulmonary: Effort: Pulmonary effort is normal. Abdominal: Palpations: Abdomen is soft. Tenderness: There is no abdominal tenderness. Genitourinary: Comments: Kidneys non palpable bilaterally Bladder non palpable or tender Neurological: Mental Status: He is alert. Assessment/Plan Diagnoses and all orders for this visit: Prostate cancer (Multi) Erectile dysfunction of organic origin Nocturia All available PSA values reviewed, Options discussed. Questions answered. Patient wants to hold off on Tx for now. Diet changes for prostate health discussed and educational information given. Pros/Cons of prostatehealth supplements discussed. Treatment options for LUTS reviewed Discussed timed voiding. Discussed fluid and caffeine intake Treatment options for ED reviewed-observe Lifestyle change to help prevent UTIs discussed. Encouraged fluid intake. F/U 3 months with psa documented in this [facility] Work Phone: 1(530) 476-868910-31-2024 History of Present illness Narrative* STANFORD aFbian - 05/05/2024 9:00 AM EDT Images from the original note were not included. [facility] Visit Note History of present illness: This is a 73 y.o. male never smoker with a history of HTN, DM, HLD, CVA and bradycardia who presents to the clinic with complaints of chest pain. The patient has a history of symptomatic bradycardia with increased fatigue, shortness of breath and dizziness. quality assurance monitor body demonstrated predominantly sinus rhythm with an average heart rate of 42 bpm with a pause of 6.8 seconds, 91% of the time spent with HR less than 60 bpm. The patient presented to [facility] for dual chamber pacemaker implantation with Dr. Bernal. On 05/03/[address] [facility] emergency department with complaints ofright sided chest pain associated with diaphoresis and blurred vision. Patient was deemed stable and discharged home with cardiology follow-up. Subjective: While driving home from [facility] on 05/03/2024 he felt stabbing pain x3 right upper chest. Everything looked bright lasted 10 mins, resolved spontaneously. Has not had any issues since then Active Issues Symptomatic bradycardia s/p PPM implantation -Status post dual-chamber permanent pacemaker implantation with Dr. Bernal 03/02/2024 -Keflex 500 mg twice daily for 7 days -Scheduled for wound check visit on 05/09/2024 -Chest x-ray PA and LAT post pacemaker implant plantation on 05/03/2024 showed no pneumothorax. Repeat single view chest x-ray later that day at [facility] again shows no effusion or pneumothorax. -Chest CT scan without contrast showed no acute findings Past Medical History Past Medical History: Diagnosis Date Arthritis Benign prostatic hyperplasia Diabetes mellitus (Multi) Elevated PSA Hyperlipidemia Hypertension Stroke (Multi) Type 2 diabetes mellitus Past Surgical History Past Surgical History: Procedure Laterality Date BACK SURGERY September 2017 CARDIAC CATHETERIZATION N/A 03/25/2024 Procedure: Left Heart Cath; Surgeon: Toby Hudson MD; Location: [facility] Cardiac [place];Service: Cardiovascular; Laterality: N/A; CARDIAC CATHETERIZATION N/A 03/25/2024 Procedure: Left Ventriculography; Surgeon: Toby Hudson MD; Location: [facility] Cardiac [place]; Service: Cardiovascular; Laterality: N/A; CARDIAC ELECTROPHYSIOLOGY PROCEDURE Left 05/02/2024 Procedure: Dual Chamber PPM ([id number]); Surgeon: Randolph Bernal MD; Location: [facility] Cardiac [place]; Service: Electrophysiology; Laterality: Left; Medtronic, Magno try LBBB pacing CIRCUMCISION, PRIMARY HERNIA REPAIR November 2022 JOINT REPLACEMENT OTHER SURGICAL HISTORY 07/28/2019 Tonsillectomy OTHER SURGICAL HISTORY 07/28/2019 Hip replacement SPINE SURGERY TONSILLECTOMY WISDOM TOOTH EXTRACTION Medications Current Outpatient Medications Medication Instructions amLODIPine (NORVASC) 5 mg, oral, Daily aspirin 81 mg EC tablet 1 tablet, Daily atorvastatin (LIPITOR) 40 mg, oral, Daily cephalexin (KEFLEX) 500 mg, oral, 2 times daily cyanocobalamin, vitamin B-12, 1,000 mcg tablet, sublingual 1 tablet, Daily FreeStyle Lite Strips strip TEST BLOOD SUGAR DAILY - FIRST THING IN THE MORNING BEFORE BREAKFAST lancets [facility] blood sugar every morning lisinopril 40 mg, oral, Daily metoprolol succinate XL (TOPROL-XL) 12.5 mg, oral, Daily, Do not crush or chew. multivitamin tablet 1 tablet, Daily triamterene-hydrochlorothiazid (Maxzide-25) 37.5-25 mg tablet 1 tablet, oral, Daily Allergies No Known Allergies Social History Social History Tobacco Use Smoking status: Never Smokeless tobacco: Never Vaping Use Vaping status: Never Used Substance Use Topics Alcohol use: Never Drug use: Never Family History Family History Problem Relation Name Age of Onset COPD Mother Savannah Thompson Other (cardiac pacemaker) Father Alli Thompson Heart attack Father Alli Thompson Arthritis Father Alli Thompson Cancer Father Alli Thompson VITALS Vitals: 05/05/24 0847 BP: 118/62 Pulse: 72 SpO2: 97% Weight Vitals: 05/05/24 0847 Weight: 79.6 kg (175 lb 8 oz) PHYSICAL EXAM Physical Exam Vitals and nursing note reviewed. Constitutional: General: He is not in acute distress. HENT: Head: Normocephalic and atraumatic. Mouth/Throat: Mouth: Mucous membranes are moist. Pharynx: Oropharynx is clear. Eyes: General: No scleral icterus. Pupils: Pupils are equal, round, and reactive to light. Cardiovascular: Rate and Rhythm: Normal rate and regular rhythm. Pulses: Normal pulses. Heart sounds: Normal heart sounds, S1 normal and S2 normal. No murmur heard. No friction rub. Pulmonary: Effort: Pulmonary effort is normal. Breath sounds: Normal breath sounds. Abdominal: General: Bowel sounds are normal. There is no distension. Palpations: Abdomen is soft. Tenderness: There is no abdominal tenderness. Musculoskeletal: General: Normal range of motion. Cervical back: Normal range of motion and neck supple. Right lower leg: No edema. Left lower leg: No edema. Skin: General: Skin is warm and dry. Capillary Refill: Capillary refill takes less than 2 seconds. Findings: No rash. Neurological: General: No focal deficit present. Mental Status: He is alert. Psychiatric: Mood and Affect: Mood normal. Behavior: Behavior normal. Cardiovascular Labs Lab Results Component Value Date HGB 14.2 05/03/2024 HGB 12.8 (L) 04/25/2024 HGB 14.0 03/16/2024 PLT 177 05/03/2024 WBC 8.9 05/03/2024 NA 131 (L) 05/03/2024 K 4.0 05/03/2024 CREATININE 0.84 05/03/2024 CREATININE 0.75 04/25/2024 CREATININE 0.77 03/16/2024 BUN 20 05/03/2024 CALCIUM 9.7 05/03/2024 INR 1.1 10/14/2023 TROPHS 44 (H) 05/03/2024 TROPHS 45 (H) 05/03/2024 TROPHS 5 10/14/2023 LDLF 33 02/21/2022 Echocardiogram No echocardiogram results found for the past 12 months The ASCVD Risk score (Alexander DK, et al., 2019) failed to calculate for the following reasons: Risk score cannot be calculated because patient has a medical history suggesting prior/existing ASCVD Low Risk: <5% Borderline Risk: 5%-7.4% Intermediate Risk: 7.5% - 19.9% High Risk: >20% Assessment and Plan -He remains currently asymptomatic since the episode on 05/03/2024. EKG shows paced rhythm with no abnormalities. Left chest incision from device placement dressing is clean dry and intact with no hematoma edema or erythremia and is not painful. I personally reviewed the 2 chest x-rays and saw no pneumothorax and CT scan does not show any pericardial or pleural effusion. I called Dr. Bernal discussed this case and he agreed to continue his routine follow-up appointments. Return to Care: Keep current cardiology follow-up appointments as scheduled If your symptoms worsen or progress please go directory to your nearest emergency department for evaluation. Thank you for this interesting clinical case and allowing me to participate in the care of this patient. Please reach me out if you have any questions or if you need any clarifications regarding thispatient's care. Disclaimer: This note was dictated by speech recognition, and every effort has been made to prevent any error in tobacco warehouse manager, however minor errors may be present Flavia Noland, MSN, GOODS LAYER, ACNPC, CCRN Advanced Practice Provider, Nurse Practitioner Division of Cardiovascular Medicine [facility] documented [facility] this [facility] Work Phone: [phone]) 778-984710-29-2024 History of Present illness Narrative* Tiffany Samuels RN - 05/03/2024 12:33 PM EDT 05/03/24 1232 Discharge Planning Living Arrangements Spouse/significant other Support Systems Family members Assistance Needed independent Type of Residence Private residence Call made to bedside. Patient alert & oriented x3. This TCC introduced myself and my role. Assessment information gathered for discharge. Patient is a written discharge going home today with no anticipated needs at this time. Family to drive home. Tiffany Samuels RN documented in this [facility] Work Phone: [phone] 773-752710-29-2024 Hospital course Narrative* STANFORD Reid - 05/03/2024 11:15 AM EDT Discharge Diagnosis Syncope Issues Requiring Follow-Up Patient to follow up in one week for incision check - scheduled 05/09/24. Test Results Pending At Discharge Pending Labs No current pending labs. Hospital Course This is a 73 year old male with a PMH significant for HTN, DM, HLD, CVA and bradycardia. The patient has a history of symptomatic bradycardia with increased fatigue, shortness of breath and dizziness. quality assurance monitor body demonstrated predominantly sinus rhythm with an average heart rate of 42 bpm with a pause of 6.8 seconds, 91% of the time spent with HR less than 60 bpm. The patient presented to [facility], 05/02/24 for dual chamber pacemaker implantation with Dr. Bernal. PMH: HTN, DM, HLD, CVA, bradycardia, vitamin B12 deficiency, BPH, spinal stenosis PSH: hip replacement, back surgery, tonsillectomy Family history: Mother - COPD. Father = CT, pacemaker. Social history: Never a smoker, denies alcohol and illicit drug use 05/03/24: s/p dual chamber PPM implantation with Dr Bernal 05/02/24 (see procedure note for details. Upon exam patient is sitting in bed in no apparent distress. VSS. Paced on telemetry. Left chest incision covered with DRSG D+I, no hematoma, no ecchymosis, no erythema. Device interrogation completedthis AM okay per Dr. Bernal. CXR completed this AM showed no evidence of pneumothorax per radiology im pression. Patient denies any chest pain, shortness of breath, fever/chills, numbness/tingling, nausea/vomiting. Patient will be discharge home today. Symptomatic bradycardia s/p PPM implantation - discharge home today - incision check in one week - scheduled 05/09/24 - Keflex 500 mg BID for 7 days - continue home medications Above patient and plan discussed with Dr. Bernal. Pertinent Physical Exam At Time of Discharge Physical Exam Constitutional: General: He is not in acute distress. Cardiovascular: Rate and Rhythm: Normal rate and regular rhythm. Comments: Paced. Pulmonary: Effort: Pulmonary effort is normal. No respiratory distress. Comments: Clear bilaterally. Abdominal: General: Bowel sounds are normal. Skin: General: Skin is warm and dry. Comments: Left chest incision covered with DRSG D+I, no hematoma, no ecchymosis, no erythema. Neurological: General: No focal deficit present. Mental Status: He is alert and oriented to person, place, and time. Psychiatric: Mood and Affect: Mood normal. Behavior: Behavior normal. Home Medications Medication List CONTINUE taking these medications amLODIPine 5 mg tablet; Commonly known as: Norvasc; Take 1 tablet (5 mg) by mouth once daily. aspirin 81 mg EC tablet atorvastatin 40 mg tablet; Commonly known as: Lipitor; Take 1 tablet (40 mg) by mouth once daily. cyanocobalamin (vitamin B-12) 1,000 mcg tablet, sublingual FreeStyle Lite Strips strip; Generic drug: blood sugar diagnostic; TEST BLOOD SUGAR DAILY - FIRST THING IN THE MORNING BEFORE BREAKFAST lancets misc; Check blood sugar every morning lisinopril 40 mg tablet; Take 1 tablet (40 mg) by mouth once daily. multivitamin tablet triamterene-hydrochlorothiazid 37.5-25 mg tablet; Commonly known as: Maxzide-25; Take 1 tablet by mouth once daily. Outpatient Follow-Up Future Appointments Date Time Provider Department [place] 05/09/2024 9:30 AM CARDIOLOGY DO [id number] NURSE [id number] [facility] 05/11/2024 9:15 AM Alli Orona MD [id number] [facility] 05/26/2024 9:00 AM Donnell Mendoza MD [id number] [facility] 05/31/2024 12:30 PM [facility] [id number] [facility] 08/02/2024 2:00 PM Randolph Bernal MD [id number] [facility] 10/04/2024 10:15 AM Toby Hudson MD [id number] [facility] STANFORD Reid documented in this [facility] Work Phone: [phone]) 675-579610-29-2024 Hospital Discharge instructions* Discharge Instructions* STANFORD Reid - 05/03/2024 9:55 AM EDT Post Device Placement Instructions - Please do not lift left arm above shoulder level for 4-5 weeks - No repetitive motion or lifting heavy weight for 4-5 weeks - No driving, alcohol or making legal decisions for 24 hours - Keep wound completely dry for 7 days; may shower but keep bandage as dry as possible - No soaking in hot tubs or baths for 10 days; may sponge bath - Keep bandage on incision until seen in the office in 1 week for incision check - scheduled 05/09/24 - Allow steri strips to fall off naturally. - Please call our office if you notice any discharge or swelling around incision or fever * Attachments The following attachments cannot be sent through Care Everywhere. * Pacemaker Insertion Discharge Instructions (Palest[place]) documented in this [facility] Work Phone: 1(444) 673-679110-28-2024 Nurse Note* Meron Nino RN - 05/02/2024 6:16 PM EDT Report called to 9th floor RN, Site clean and dry with no bleeding or hematoma observed. Pain interventions in place. IV patent. Belongings returned. No complain of nausea. [facility] Work Phone: 1([phone]) 695-318910-28-2024 Nurse Note* Meron Nino RN - 05/02/2024 6:16 PM EDT Report called to 9th floor RN, Site clean and dry with no bleeding or hematoma observed. Pain interventions in place. IV patent. Belongings returned. No complain of nausea. documented in this [facility] Work Phone: 1([phone]) 816-420610-28-2024 Note* Post-Procedure Note - Randolph Bernal MD - 05/02/2024 3:00 PM EDT Images from the original note were not included. Physician Transition of Care Summary Cardiac Electrophysiology Lab/OR Procedure Date: 05/02/2024 Attending: * Randolph Bernal - Primary Resident/Fellow/Other Campaign Assistant: Surgeons and Role: * No surgeons found with a matching role * Indications: Pre-op Diagnosis * Syncope [R55] * Sinus bradycardia [R00.1] Post-procedure diagnosis: Post-op Diagnosis * Syncope [R55] * Sinus bradycardia [R00.1] Procedure(s): Dual Chamber PPM ([id number]) [id number] - [place] INS NEW/RPLCMT PRM PM W/TRANSV ELTRD ATRIAL&VENT Summary: Successful implantation of a Medtronic left sided Dual chamber pacemaker Final Implant Settings: Post implant device parameters scanned into the system Recommendations: Tentatively patient will be discharged Tomorrow after PA-lateral chest xray and device interrogation are done and provided the recovery parameters are appropriate. No Heparin/Lovenox/Anticoagulation until cleared by EP Additional dose of antibiotics in 12 hours: Vancomycin IV A PA-lateral chest X-ray should be performed and telemetry monitoring continued for 24 hours. A 12 lead ECG should be performed prior to discharge from the hospital. Resume rest of home medications Discharge home with PO Abx Keflex 500mg BID x 7 Days Patient Instructions: Please do not lift left arm above shoulder level for 4-5 weeks No repetitive motion or lifting heavy weight for 4-5 weeks No alcohol or making legal decisions for 24 hours. Ok to take tylenol for any discomfort after the procedure Keep wound completely dry for 7 days; may shower but keep bandage as dry as possible. No soaking in hot tubs or baths for 10 days. May sponge bath Keep bandage on incision until seen in the office in 1 week. Allow steristrips underneath to fall off naturally. Please call our office ([place]: [phone]) if you notice any discharge or swelling around incision or fever. Follow up: The patient should be alert for bleeding, swelling, or signs of infection. The patient should call the mat sewer immediately if symptoms recur, or for any problems. Follow up in Clinic in 1 weeks for wound check. 4 weeks for routine device analysis and reprogramming if necessary. Remote monitoring will be instituted if possible. For full procedure note/study review please go to Chart review --> Cardiology tab --> Electrophysiology procedure for 05/02/2024 Complications: None Stents/Implants: Implants Pacemaker Lead, Select Secure, Mdl 3830 69 Cm - [id number] - Wasted Inventory item: LEAD, SELECT SECURE, MDL 3830 69 CM Model/Cat number: [id number] Serial number: [id number] Derrick Builder: [employer] Lot number: [id number] Device identifier: [id number] Implant Date: 05/02/2024 As of 05/02/2024 Status: Wasted Lead, Capsurefix Novus, 58 Cm - [id number] - Implanted Inventory item: LEAD, CAPSUREFIX NOVUS, 58 CM Model/Cat number: [id number] Serial number: [id number] Derrick Builder: [employer] Lot number: [id number] Device identifier: [id number] Implant Date: 05/02/2024 As of 05/02/2024 Status: Implanted Lead, Capsurefix Novus, 52 Cm - [id number] - Implanted Inventory item: LEAD, CAPSUREFIX NOVUS, 52 CM Model/Cat number: [id number] Serial number: [id number] Derrick Builder: [employer] Lot number: [id number] Device identifier: [id number] Implant Date: 05/02/2024 As of 05/02/2024 Status: Implanted Pacemaker, Dual Chamber, Adriana Mri Xt Dr - [id number] - Implanted Inventory item: PACEMAKER, DUAL CHAMBER, ADRIANA MRI XT DR Model/Cat number: [id number] Serial number: [id number] Derrick Builder: [employer] Lot number: [id number] Device identifier: [id number] Implant Date: 05/02/2024 As of 05/02/2024 Status: Implanted Anticoagulation/Antiplatelet Plan: Please hold all heparin/Lovenox/AC until cleared by EP service/provider Estimated Blood Loss: * No values recorded between 12/04/2023 2:17 PM and 12/04/2023 7:50 PM * Anesthesia: Moderate Sedation Anesthesia Staff: No anesthesia staff entered. Any Specimen(s) Removed: No specimens collected during this procedure. Disposition: Admit for extended observation, with anticipated discharge 05/03/24 Randolph Bernal MD [facility] Cardiac Electrophysiology Disclaimer: This note was dictated by speech recognition, and every effort has been made to prevent any error in tobacco warehouse manager, however minor errors may be present [facility] Work Phone: 1(312) 753-706610-28-2024 Miscellaneous Notes* Post-Procedure Note - Randolph Bernal MD - 05/02/2024 3:00 PM EDT Images from the original note were not included. Physician Transition of Care Summary Cardiac Electrophysiology Lab/OR Procedure Date: 05/02/2024 Attending: Dotty Bernal - Primary Resident/Fellow/Other Campaign Assistant: Surgeons and Role: * No surgeons found with a matching role * Indications: Pre-op Diagnosis * Syncope [R55] * Sinus bradycardia [R00.1] Post-procedure diagnosis: Post-op Diagnosis * Syncope [R55] * Sinus bradycardia [R00.1] Procedure(s): Dual Chamber PPM (06101) 63870 - [place] INS NEW/RPLCMT PRM PM W/TRANSV ELTRD ATRIAL&VENT Summary: Successful implantation of a Medtronic left sided Dual chamber pacemaker Final Implant Settings: Post implant device parameters scanned into the system Recommendations: Tentatively patient will be discharged Tomorrow after PA-lateral chest xray and device interrogation are done and provided the recovery parameters are appropriate. No Heparin/Lovenox/Anticoagulation until cleared by EP Additional dose of antibiotics in 12 hours: Vancomycin IV A PA-lateral chest X-ray should be performed and telemetry monitoring continued for 24 hours. A 12 lead ECG should be performed prior to discharge from the hospital. Resume rest of home medications Discharge home with PO Abx Keflex 500mg BID x 7 Days Patient Instructions: Please do not lift left arm above shoulder level for 4-5 weeks No repetitive motion or lifting heavy weight for 4-5 weeks No alcohol or making legal decisions for 24 hours. Ok to take tylenol for any discomfort after the procedure Keep wound completely dry for 7 days; may shower but keep bandage as dry as possible. No soaking in hot tubs or baths for 10 days. May sponge bath Keep bandage on incision until seen in the office in 1 week. Allow steristrips underneath to fall off naturally. Please call our office ([place]: [phone]) if you notice any discharge or swelling around incision or fever. Follow up: The patient should be alert for bleeding, swelling, or signs of infection. The patient should call the mat sewer immediately if symptoms recur, or for any problems. Follow up in Clinic in 1 weeks for wound check. 4 weeks for routine device analysis and reprogramming if necessary. Remote monitoring will be instituted if possible. For full procedure note/study review please go to Chart review --> Cardiology tab --> Electrophysiology procedure for 05/02/2024 Complications: None Stents/Implants: Implants Pacemaker Lead, Select Secure, Mdl 3830 69 Cm - [id number] - Wasted Inventory item: LEAD, SELECT SECURE, MDL 3830 69 CM Model/Cat number: [id number] Serial number: [id number] Derrick Builder: [employer] Lot number: [id number] Device identifier: [id number] Implant Date: 05/02/2024 As of 05/02/2024 Status: Wasted Lead, Capsurefix Novus, 58 Cm - [id number] - Implanted Inventory item: LEAD, CAPSUREFIX NOVUS, 58 CM Model/Cat number: [id number] Serial number: [id number] Derrick Builder: [employer] Lot number: [id number] Device identifier: [id number] Implant Date: 05/02/2024 As of 05/02/2024 Status: Implanted Lead, Capsurefix Novus, 52 Cm - [id number] - Implanted Inventory item: LEAD, CAPSUREFIX NOVUS, 52 CM Model/Cat number: [id number] Serial number: [id number] Derrick Builder: [employer] Lot number: [id number] Device identifier: [id number] Implant Date: 05/02/2024 As of 05/02/2024 Status: Implanted Pacemaker, Dual Chamber, [place] Mri Xt Dr - [id number] - Implanted Inventory item: PACEMAKER, DUAL CHAMBER, ADRIANA MRI XT DR Model/Cat number: [id number] Serial number: [id number] Derrick Builder: [employer] Lot number: [id number] Device identifier: [id number] Implant Date: 05/02/2024 As of 05/02/2024 Status: Implanted Anticoagulation/Antiplatelet Plan: Please hold all heparin/Lovenox/AC until cleared by EP service/provider Estimated Blood Loss: * No values recorded between 12/04/2023 2:17 PM and 12/04/2023 7:50 PM * Anesthesia: Moderate Sedation Anesthesia Staff: No anesthesia staff entered. Any Specimen(s) Removed: No specimens collected during this procedure. Disposition: Admit for extended observation, with anticipated discharge 05/03/24 Randolph Bernal MD [facility] Cardiac Electrophysiology Disclaimer: This note was dictated by speech recognition, and every effort has been made to prevent any error in tobacco warehouse manager, however minor errors may be present documented in this [facility] Work Phone: [phone] 749-203710-28-2024 History and physical note* Era Bailon, EDITORIAL DIRECTOR-GOODS LAYER - 05/02/2024 2:10 PM EDT History and Physical Pre Surgical Review (< 30 days) History & Physical Reviewed I have reviewed the History and Physical dated: 04/04/24 History and Physical reviewed and relevant findings noted. Patient examined to review pertinent physical findings.: No significant changes Home Medications Reviewed: see medication list below Allergies Reviewed: no changes noted Home Medications Current Outpatient Medications Medication Instructions amLODIPine (NORVASC) 5 mg, oral, Daily aspirin 81 mg EC tablet 1 tablet, Daily atorvastatin (LIPITOR) 40 mg, oral, Daily cyanocobalamin, vitamin B-12, 1,000 mcg tablet, sublingual 1 tablet, Daily FreeStyle Lite Strips strip TEST BLOOD SUGAR DAILY - FIRST THING IN THE MORNING BEFORE [place]AK[place] [facility] [place] blood sugar every morning lisinopril 40 mg, oral, Daily multivitamin tablet 1 tablet, Daily triamterene-hydrochlorothiazid (Maxzide-25) 37.5-25 mg tablet 1 tablet, oral, Daily Allergies No Known Allergies Physical Exam Physical Exam Constitutional: General: He is not in acute distress. Cardiovascular: Rate and Rhythm: Normal rate and regular rhythm. Comments: + pulses all extremities. Pulmonary: Effort: Pulmonary effort is normal. No respiratory distress. Comments: Clear bilaterally. Abdominal: General: Bowel sounds are normal. Musculoskeletal: Right lower leg: Edema present. Left lower leg: Edema present. Neurological: General: No focal deficit present. Mental Status: He is alert and oriented to person, place, and time. Psychiatric: Mood and Affect: Mood normal. Behavior: Behavior normal. Airway/Sedation Assessment Assessment by anesthesia N/A Mouth Opening OK yes Neck Flexibility OK yes Loose Teeth No Oropharyngeal Classification Grade II ASA PS Classification ASA III - Patient with severe systemic disease Sedation Plan Moderate Risks, benefits, and alternatives discussed with patient. ERAS (Enhanced Recovery After Surgery): ERAS Patient: No Consent: COVID-19 Consent: COVID-19 Risk Consent Surgeon has reviewed mayberry risks related to the risk of charly COVID-19 and if they contract COVID-19 what the risks are. STANFORD Reid Cosigned by Randolph Bernal MD at 05/02/2024 3:13 PM EDT [facility] Work Phone: 1(372) 454-405810-28-2024 History and physical note* STANFORD Reid - 05/02/2024 2:10 PM EDT History and Physical Pre Surgical Review (< 30 days) History & Physical Reviewed I have reviewed the History and Physical dated: 04/04/24 History and Physical reviewed and relevant findings noted. Patient examined to review pertinent physical findings.: No significant changes Home Medications Reviewed: see medication list below Allergies Reviewed: no changes noted Home Medications Current Outpatient Medications Medication Instructions amLODIPine (NORVASC) 5 mg, oral, Daily aspirin 81 mg EC tablet 1 tablet, Daily atorvastatin (LIPITOR) 40 mg, oral, Daily cyanocobalamin, vitamin B-12, 1,000 mcg tablet, sublingual 1 tablet, Daily FreeStyle Lite Strips strip TEST BLOOD SUGAR DAILY - FIRST THING IN THE MORNING BEFORE BREAK[place]ST [place]ets [facility] [place] blood sugar every morning lisinopril 40 mg, oral, Daily multivitamin tablet 1 tablet, Daily triamterene-hydrochlorothiazid (Maxzide-25) 37.5-25 mg tablet 1 tablet, oral, Daily Allergies No Known Allergies Physical Exam Physical Exam Constitutional: General: He is not in acute distress. Cardiovascular: Rate and Rhythm: Normal rate and regular rhythm. Comments: + pulses all extremities. Pulmonary: Effort: Pulmonary effort is normal. No respiratory distress. Comments: Clear bilaterally. Abdominal: General: Bowel sounds are normal. Musculoskeletal: Right lower leg: Edema present. Left lower leg: Edema present. Neurological: General: No focal deficit present. Mental Status: He is alert and oriented to person, place, and time. Psychiatric: Mood and Affect: Mood normal. Behavior: Behavior normal. Airway/Sedation Assessment Assessment by anesthesia N/A Mouth Opening OK yes Neck Flexibility OK yes Loose Teeth No Oropharyngeal Classification Grade II ASA PS Classification ASA III - Patient with severe systemic disease Sedation Plan Moderate Risks, benefits, and alternatives discussed with patient. ERAS (Enhanced Recovery After Surgery): ERAS Patient: No Consent: COVID-19 Consent: COVID-19 Risk Consent Surgeon has reviewed mayberry risks related to the risk of charly COVID-19 and if they contract COVID-19 what the risks are. 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 Continue observation without additional treatment. Scheduled to see Dr. Christian in July. I have confirmed and edited as necessary the relevant HPI, ophthalmic history, ROS, and the neuro exam findings as obtained by others. I have seen and examined Alli Serenity Thompson. I have discussed the case and the management of this patient's care with the Resident/Fellow, if applicable. I also have reviewed and agree with the assessment and plan as stated above and agree withall of its relevant components. [facility]24 NoteHNO ID: [id number] Author: COOPERRIDER II, MAX, OD Service: ? 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 Continue observation without additional treatment. Scheduled to see Dr. Christian in July. I have confirmed and edited as necessary the relevant HPI, ophthalmic history, ROS, and the neuro exam findings as obtained by others. I have seen and examined Alli Thompson. I have discussed the case and the management of this patient's care with the Resident/Fellow, if applicable. 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 Continue observation without additional treatment. Scheduled to see Dr. Christian in July. I have confirmed and edited as necessary the relevant HPI, ophthalmic history, ROS, and the neuro exam findings as obtained by others. I have seen and examined Alli Thompson. I have discussed the case and the management of this patient's care with the Resident/Fellow, if applicable. I also have reviewed and agree with the assessment and plan as stated above and agree withall of its relevant components. documented in this encounterUk [facility]10-16-2024 NoteDate of Procedure 04/20/2024. Residential Appliance Repair Technician Information Dope Sprayer: papito. Start time: 8:35 AM. Quality Right Eye Good. Left Eye Good. NFL Interpretation Right Eye Inferior loss. Left Eye Superior loss. Ganglion Cell Layer Thickness Right Eye Inferior loss. Left Eye Superior loss. Interval Change Right Eye Stable. Left Eye Stable. Notes [id number] NoteDate of Procedure 04/20/2024. Residential Appliance Repair Technician Information Dope Sprayer: papito. Start time: 8:35 AM. Reliability Right Eye Borderline. Left Eye Good. Interpretation Right Eye Enlarged Blind Spot. Left Eye Nasal step defect (Inferior). Interval Change Right Eye Stable. Left Eye Stable. Notes [id number] History of Present illness Narrative* Toby Hudson MD - 04/04/2024 2:45 PM EDT Chief Complaint Patient presents with Follow-up Cath HPI: I was requested by Dr. Malloy to evaluate this patient in consultation for cardiac assessment. Mr. Alli Thompson is a 73 y.o. year old non-smoker diabetic male patient with past medical history significant for Multivessel CAD (conservative treatment), hypertension, type 2 diabetes mellitus, hyperlipidemia, prior stroke, arthritis, BPH, coming for assessment of severe sinus bradycardia. Patient heart rate usually on the 30s, he is mostly asymptomatic, only had 1 episode of surgery where he got dizziness but did not had syncopal episodes. He denies chest pain, shortness of breath, palpitations, leg edema, lightheadedness, headaches, fever, chills, orthopnea, paroxysmal nocturnal dyspnea or syncope. EKG shows bradycardic sinus rhythm with no signs of acute ischemic changes. Echo (03/2024): 1. The left ventricular systolic function is normal, with a Jerez's biplane calculated ejection fraction of 68%. 2. Left ventricular diastolic filling was indeterminate. 3. There is moderate concentric left ventricular hypertrophy. 4. There is normal right ventricular global systolic function. 5. Mild aortic valve stenosis. 6. Patient is bradycardic at the time of the echocardiogram. 7. No major changes compared to prior echocardiogram 12/22/2019. CT calcium scoring is 10,296 Left Heart Catheterization (03/25/2024): Multivessel coronary artery disease Mid LAD 95% calcified lesion; mid 1st OM 95% calcified lesion Mid 1st OM 95% calcified lesion Prox RCA 80% calcified lesion; distal RCA 95% diffusely calcified lesion Chronic total occlusion mid PDA; collateral circulation to PDA Preserved LV systolic function This case has been extensively discussed between the cardiac surgery team (Dr. Marie), electrophysiology team (Dr. Bernal) and interventional cardiology team. As the patient is asymptomatic at this point, our decision was to keep conservative treatment for the coronary lesions at this point with GMDT, once the heavily calcified lesions are not feasible for CABG or PCI without major risks for an asymptomatic patient. We will them move forward with the pacemaker placement so that we can work on hismedication, especially starting him on beta-bahman. Past Medical History Past Medical History: Diagnosis Date Arthritis Benign prostatic hyperplasia Diabetes mellitus (Multi) Elevated PSA Hyperlipidemia Hypertension Stroke (Multi) Type 2 diabetes mellitus (Multi) Past Surgical History Past Surgical History: Procedure Laterality Date BACK SURGERY September 2017 CARDIAC CATHETERIZATION N/A 03/25/2024 Procedure: Left Heart Cath; Surgeon: Toby Hudson MD; Location: [facility] Cardiac [place];Service: Cardiovascular; Laterality: N/A; CARDIAC CATHETERIZATION N/A 03/25/2024 Procedure: Left Ventriculography; Surgeon: Toby Hudson MD; Location: [facility] Cardiac [place]; Service: Cardiovascular; Laterality: N/A; CIRCUMCISION, PRIMARY HERNIA REPAIR November 2022 JOINT REPLACEMENT OTHER SURGICAL HISTORY 07/28/2019 Tonsillectomy OTHER SURGICAL HISTORY 07/28/2019 Hip replacement SPINE SURGERY TONSILLECTOMY WISDOM TOOTH EXTRACTION Past Family History Family History Problem Relation Name Age of Onset COPD Mother Savannah Thompson Other (cardiac pacemaker) Father Alli Thompson Heart attack Father Alli Thompson Arthritis Father Alli Thompson Cancer Father Alli Thompson Allergy History No Known Allergies Past Social History Social History Socioeconomic History Marital status: Tobacco Use Smoking status: Never Smokeless tobacco: Never Vaping Use Vaping status: Never Used Substance and Sexual Activity Alcohol use: Never Drug use: Never Sexual activity: Yes Partners: Female control/protection: None Social History Tobacco Use Smoking Status Never Smokeless Tobacco Never Objective Data: Last Recorded Vitals: Vitals: 04/04/24 1442 BP: 162/64 BP Location: Left arm Patient Position: Sitting Pulse: 64 Temp: 36.5 C (97.7 F) SpO2: 99% Weight: 82.7 kg (182 lb 4.8 oz) Height: 1.676 m (5' 6) Last Labs: CBC - 03/16/2024: 12:47 PM 5.0 14.0 142 42.0 CMP - 03/16/2024: 12:47 PM 9.5 6.6 20 --- 0.6 _ 4.1 19 69 PTT - 10/14/2023: 11:11 AM 1.1 12.7 37 TROPHS Date/Time Value Ref Range Status 10/14/2023 12:07 PM 5 0 - 20 ng/L Final 10/14/2023 11:11 AM 6 0 - 20 ng/L Final HGBA1C Date/Time Value Ref Range Status 12/07/2023 08:09 AM 5.2 see below % Final 05/22/2023 08:29 AM 5.3 see below % Final LDLCALC Date/Time Value Ref Range Status 12/07/2023 08:09 AM 35 <=99 mg/dL Final Comment: Near Borderline AGE Desirable Optimal High High Very High 0-19 Y 0 - 109 --- 110-129 >/= 130 ---- 20-24 Y 0 - 119 --- 120-159 >/= 160 ---- >24 Y 0 - 99 100-129 130-159 160-189 >/=190 05/22/2023 08:29 AM 34 <=99 mg/dL Final Comment: Near Borderline AGE Desirable Optimal High High Very High 0-19 Y 0 - 109 --- 110-129 >/= 130 ---- 20-24 Y 0 - 119 --- 120-159 >/= 160 ---- >24 Y 0 - 99 100-129 130-159 160-189 >/=190 VLDL Date/Time Value Ref Range Status 12/07/2023 08:09 AM 10 0 - 40 mg/dL Final 05/22/2023 08:29 AM 14 0 - 40 mg/dL Final 02/21/2022 09:50 AM 17 0 - 40 mg/dL Final 08/27/2020 10:49 AM 36 0 - 40 mg/dL Final 12/30/2019 09:50 AM 27 0 - 40 mg/dL Final Patient Medications: Outpatient Encounter Medications as of 04/04/2024 Medication Sig Dispense Refill amLODIPine (Norvasc) 5 mg tablet Take 1 tablet (5 mg) by mouth once daily. 90 tablet 3 aspirin 81 mg EC tablet Take 1 tablet (81 mg) by mouth once daily. atorvastatin (Lipitor) 20 mg tablet Take 1 tablet (20 mg) by mouth once daily. 90 tablet 3 cyanocobalamin, vitamin B-12, 1,000 mcg tablet, sublingual Place 1 tablet (1,000 mcg) under the tongue once daily. FreeStyle Lite Strips strip TEST BLOOD SUGAR DAILY - FIRST THING IN THE MORNING BEFORE BREAKFAST 100 strip 3 [place]ancets [facility] [place] blood sugar every morning 100 each 3 lisinopril 40 mg tablet Take 1 tablet (40 mg) by mouth once daily. 90 tablet 3 multivitamin tablet Take 1 tablet by mouth once daily. triamterene-hydrochlorothiazid (Maxzide-25) 37.5-25 mg tablet Take 1 tablet by mouth once daily. 90tablet 3 No facility-administered encounter medications on file as of 04/04/2024. Physical Exam: General: alert, oriented and in no acute distress HEENT: NC/AT; EOMI; PERRLA, external ear is normal Neck: supple; trachea midline; no masses; no JVD Chest: clear breath sounds bilaterally; no wheezing Cardio: regular rhythm, S1S2 normal, no murmurs; bradycardia Abdomen: Soft, non-tender, non-distension, no organomegaly Extremities: no clubbing/cyanosis/edema Neuro: Grossly intact Psychiatric: Normal mood and affect Past Cardiology Results (Last 3 Years): EKG: ECG 12 lead (Clinic Performed) 03/15/2024 ECG 12 lead (Clinic Performed) 02/26/2024 ECG 12 Lead 10/14/2023 Echo: Echo Results: Transthoracic Echo (TTE) Complete 03/16/2024 [place] [address] [phone], TRANSTHORACIC ECHOCARDIOGRAM REPORT Patient Name: ALLI Benton ARLETTE Noel Physician: [id number] Ladarius Mills MD Study Date: 03/16/2024 Ordering Provider: [id number] TOBY HUDSON MRN/PID: [id number] Fellow: Nurse: Pearl Kuo RN Date of /Age: 1 1950 / 73 years Paper Cup Machine Operator: Michele Xie RDCS Gender: M Additional Staff: Height: 167.64 cm Admit Date: Weight: 81.65 kg Admission Status: Outpatient BSA / BMI: 1.91 m2 / 29.05 Department Location: [facility] Echo Lab kg/m2 Blood Pressure: 147 /60 mmHg Study Type: TRANSTHORACIC ECHO (TTE) COMPLETE Diagnosis/ICD: Bradycardia, unspecified-R00.1 CPT Codes: Echo Complete w Full Doppler-86290 Study Detail: The following Echo studies were performed: 2D, M-Mode, Doppler and color flow. Definity used as a contrast agent for endocardial border definition and agitated saline used as a contrast agent for intraseptal flow evaluation. Total contrast used for this procedure was 1.50cc mL via IV push. PHYSICIAN INTERPRETATION: Left Ventricle: The left ventricular systolic function is normal, with a Jerez's biplane calculated ejection fraction of 68%. There are no regional wall motion abnormalities. The left ventricular cavity size is normal. There is moderate concentric left ventricular hypertrophy. Left ventricular diastolic filling was indeterminate. Left Atrium: The left atrium is mildly dilated. A bubble study using agitated saline was performed.Bubble study is negative. Right Ventricle: The right ventricle is normal in size. There is normal right ventricular global systolic function. Right Atrium: The right atrium is normal in size. Aortic Valve: The aortic valve is probably trileaflet. There is evidence of mild aortic valve stenosis. The aortic valve dimensionless index is 0.47. There is trace aortic valve regurgitation. The peak instantaneous gradient of the aortic valve is 22.1 mmHg. The mean gradient of the aortic valve is 14.0 mmHg. Mitral Valve: The mitral valve is abnormal. There is no evidence of mitral valve regurgitation. Calcified mitral annulus and leaflets. Tricuspid Valve: The tricuspid valve is structurally normal. No evidence of tricuspid regurgitation. Pulmonic Valve: The pulmonic valve is not well visualized. There is trace pulmonic valve regurgitation. Pericardium: There is no pericardial effusion noted. Aorta: The aortic root is normal. Systemic Veins: The inferior vena cava appears dilated, less than 50% IVC collapse with inspiration. CONCLUSIONS: 1. The left ventricular systolic function is normal, with a Jerez's biplane calculated ejection fraction of 68%. 2. Left ventricular diastolic filling was indeterminate. 3. There is moderate concentric left ventricular hypertrophy. 4. There is normal right ventricular global systolic function. 5. Mild aortic valve stenosis. 6. Patient is bradycardic at the time of the echocardiogram. 7. No major changes compared to prior echocardiogram 12/22/2019. QUANTITATIVE DATA SUMMARY: 2D MEASUREMENTS: Normal Ranges: Ao Root d: 3.40 cm (2.0-3.7cm) LAs: 4.10 cm (2.7-4.0cm) IVSd: 1.58 cm (0.6-1.1cm) LVPWd: 1.78 cm (0.6-1.1cm) LVIDd: 3.65 cm (3.9-5.9cm) LVIDs: 2.42 cm LV Mass Index: 129.0 g/m2 LV % FS 33.7 % LA VOLUME: Normal Ranges: LA Vol A4C: 59.2 ml (22+/-6mL/m2) LA Vol A2C: 36.7 ml LA Vol BP: 48.3 ml LA Vol Index A4C: 30.9ml/m2 LA Vol Index A2C: 19.2 ml/m2 LA Vol Index BP: 25.3 ml/m2 LA Area A4C: 20.3 cm2 LA Area A2C: 15.4 cm2 LA Major [place] A4C: 5.9 cm LA Major [place] A2C: 5.5 cm LA Volume Index: 30.6 ml/m2 LA Vol A4C: 58.4 ml LA Vol A2C: 37.4 ml LA Vol Index BSA: 25.0 ml/m2 LV SYSTOLIC FUNCTION BY 2D PLANIMETRY (MOD): Normal Ranges: EF-A4C View: 69 % (>=55%) EF-A2C View: 66 % EF-Biplane: 68 % LV EF Reported: 68 % LV DIASTOLIC FUNCTION: Normal Ranges: MV Peak E: 1.30 m/s (0.7-1.2 m/s) MV Peak A: 1.08 m/s (0.42-0.7 m/s) E/A Ratio: 1.20 (1.0-2.2) MITRAL VALVE: Normal Ranges: MV DT: 306 msec (150-240msec) AORTIC VALVE: Normal Ranges: AoV Vmax: 2.35 m/s (<=1.7m/s) AoV Peak P.1 mmHg (<20mmHg) AoV Mean P.0 mmHg (1.7-11.5mmHg) LVOT Max Kirsty: 1.15 m/s (<=1.1m/s) AoV VTI: 70.90 cm (18-25cm) LVOT VTI: 33.20 cm LVOT Diameter: 2.00 cm (1.8-2.4cm) AoV Area, VTI: 1.47 cm2 (2.5-5.5cm2) AoV Area,Vmax: 1.54 cm2 (2.5-4.5cm2) AoV Dimensionless Index: 0.47 AORTIC INSUFFICIENCY: AI Vmax: 4.09 m/s AI Half-time: 932 msec AI Decel Rate: 129.00 cm/s2 RIGHT VENTRICLE: RV Basal 4.60 cm RV Mid 2.99 cm RV Major 8.5 cm TAPSE: 26.3 mm [id number] Ladarius Mills MD Electronically signed on 03/16/2024 at 3:57:57 PM Final Cath: Cardiac Catheterization Procedure 03/25/2024 CV NCDR CATHPCI V5 COLLECTION FORM Stress Test: Nuclear Stress Test 03/08/2024 Cardiac Imaging: No results found for this or any previous visit from the past 1095 days. Assessment/Plan Mr. Alli Thompson is a 73 y.o. year old non-smoker diabetic male patient with past medical history significant for Multivessel CAD (conservative treatment), hypertension, type 2 diabetes mellitus, hyperlipidemia, prior stroke, arthritis, BPH, coming for assessment of severe sinus bradycardia. Patient heart rate usually on the 30s, he is mostly asymptomatic, only had 1 episode of surgery where he got dizziness but did not had syncopal episodes. He denies chest pain, shortness of breath, palpitations, leg edema, lightheadedness, headaches, fever, chills, orthopnea, paroxysmal nocturnal dyspnea or syncope. Assessment # Asymptomatic bradycardia / Sick sinus syndrome / Multivessel CAD (conservative treatment) - Severe bradycardia ~30s. - EKG shows bradycardic sinus rhythm with no signs of acute ischemic changes. Echo (03/2024): 1. The left ventricular systolic function is normal, with a Jerez's biplane calculated ejection fraction of 68%. 2. Left ventricular diastolic filling was indeterminate. 3. There is moderate concentric left ventricular hypertrophy. 4. There is normal right ventricular global systolic function. 5. Mild aortic valve stenosis. 6. Patient is bradycardic at the time of the echocardiogram. 7. No major changes compared to prior echocardiogram 12/22/2019. - Left Heart Catheterization (03/25/2024): Multivessel coronary artery disease Mid LAD 95% calcified lesion; mid 1st OM 95% calcified lesion Mid 1st OM 95% calcified lesion Prox RCA 80% calcified lesion; distal RCA 95% diffusely calcified lesion Chronic total occlusion mid PDA; collateral circulation to PDA Preserved LV systolic function - CT calcium scoring is 10,296. - This case has been extensively discussed between the cardiac surgery team (Dr. Marie), electrophysiology team (Dr. Bernal) and interventional cardiology team. As the patient is asymptomatic at this point, our decision was to keep conservative treatment for the coronary lesions at this point with GMDT, once the heavily calcified lesions are not feasible for CABG or PCI without major risks for an asymptomatic patient. We will them move forward with the pacemaker placement so that we can work on his medication, especially starting him on beta-bahman. - Keep ASA 81mg daily. - Will increase Atorvastatin to 40mg daily. - Follow up after pacemaker placement with Dr. Bernal. - Plan will be to start him on beta-bahman after PPM placement. # Hypertension - Controlled blood pressure. - Keep current medications including amlodipine 5mg daily, hydrochlorothiazide 12.5mg daily. - Patient counseled to keep a healthy lifestyle including regular exercise and low-sodium diet. - Recommended home blood pressure monitoring. - Goal of BP < 130/80mmHg. # Diabetes - Controlled by PCP. - Counseled on healthy diet and regular exercises. - Discussed need for weight loss and the benefits. - Keep current medications. # Hyperlipidemia - Controlled by PCP. - Atorvastatin 40mg daily. - Counseled on healthy diet and regular exercise. We have discussed the most common side effects of the prescribed medications, indications, drug interactions, risks, complications, and alternatives of medications/therapeutics were explained and discussed. The patient has been requested to monitor closely for any untoward side effects or complications of medications. The patient has been strongly advised to be compliant with the recommendations,all the questions and concerns have been addressed. The patient has been also instructed to call, to return sooner or to go to the emergency department if symptoms persist or get worsen. The patient voiced understanding and denies any further questions at this time. d This note was transcribed using the [employer] Dict[employer] system. There may be grammatical, punctuation,or verbiage errors that occur with voice recognition programs. Counseling greater than 50% of visit regarding all cardiac issues. Thank you, Dr. aMlloy, for allowing me to participate in the care of this patient. Please do not hesitate to contact me with any further questions or concerns. Toby Hudson MD Cardiology documented in this [facility] Work Phone: [phone]) 150-304709-24-2024 History of Present illness Narrative* Nusrat Grissom MD - 03/29/2024 3:00 PM EDT Chief Complaint Dyspnea HPI: Mr. Alli Thompson is an 73 y.o. male, who is a patient of Dr. Donnell Mendoza MD I have been asked to see them by Dr. Hudson to evaluate multivessel coronary artery disease. Past Medical History: Diagnosis Date Arthritis Benign prostatic hyperplasia Diabetes mellitus (Multi) Elevated PSA Hyperlipidemia Hypertension Stroke (Multi) Type 2 diabetes mellitus (Multi) Past Surgical History: Procedure Laterality Date BACK SURGERY September 2017 CARDIAC CATHETERIZATION N/A 03/25/2024 Procedure: Left Heart Cath; Surgeon: Toby Hudson MD; Location: [facility] Card[facility];Service: Cardiovascular; Laterality: N/A; CARDIAC CATHETERIZATION N/A 03/25/2024 Procedure: Left Ventriculography; Surgeon: Toby Hudson MD; Location: [facility] Cardiac [place]; Service: Cardiovascular; Laterality: N/A; CIRCUMCISION, PRIMARY HERNIA REPAIR November 2022 JOINT REPLACEMENT OTHER SURGICAL HISTORY 07/28/2019 Tonsillectomy OTHER SURGICAL HISTORY 07/28/2019 Hip replacement SPINE SURGERY TONSILLECTOMY WISDOM TOOTH EXTRACTION Family History Problem Relation Name Age of Onset COPD Mother Savannah Thompson Other (cardiac pacemaker) Father Alli Thompson Heart attack Father Alli Thompson Arthritis Father Alli Thompson Cancer Father Alli Thompson Social History Socioeconomic History Marital status: Spouse name: Not on file Number of children: Not on file Years of education: Not on file Highest education level: Not on file Occupational History Not on file Tobacco Use Smoking status: Never Smokeless tobacco: Never Vaping Use Vaping status: Never Used Substance and Sexual Activity Alcohol use: Never Drug use: Never Sexual activity: Yes Partners: Female control/protection: None Other Topics Concern Not on file Social History Narrative Not on file Social Determinants of Health Financial Resource Strain: Not on file Food Insecurity: Not on file Transportation Needs: Not on file Physical Activity: Not on file Stress: Not on file Social Connections: Not on file Intimate Partner Violence: Not on file Housing Stability: Not on file No Known Allergies Outpatient Encounter Medications as of 03/29/2024 Medication Sig Dispense Refill amLODIPine (Norvasc) 5 mg tablet Take 1 tablet (5 mg) by mouth once daily. 90 tablet 3 aspirin 81 mg EC tablet Take 1 tablet (81 mg) by mouth once daily. cyanocobalamin, vitamin B-12, 1,000 mcg tablet, sublingual Place 1 tablet (1,000 mcg) under the tongue once daily. FreeStyle Lite Strips strip TEST BLOOD SUGAR DAILY - FIRST THING IN THE MORNING BEFORE BREAKFAST 100 strip 3 [place]ancets [facility] [place] blood sugar every morning 100 each 3 lisinopril 40 mg tablet Take 1 tablet (40 mg) by mouth once daily. 90 tablet 3 multivitamin tablet Take 1 tablet by mouth once daily. triamterene-hydrochlorothiazid (Maxzide-25) 37.5-25 mg tablet Take 1 tablet by mouth once daily. 90tablet 3 [DISCONTINUED] atorvastatin (Lipitor) 20 mg tablet Take 1 tablet (20 mg) by mouth once daily. 90 tablet 3 [DISCONTINUED] finasteride (Proscar) 5 mg tablet Take 1 tablet (5 mg) by mouth once daily. Do not crush, chew, or split. No facility-administered encounter medications on file as of 03/29/2024. Physical Exam Lab Results Component Value Date WBC 5.0 03/16/2024 HGB 14.0 03/16/2024 HCT 42.0 03/16/2024 MCV 96 03/16/2024 PLT 142 (L) 03/16/2024 Lab Results Component Value Date GLUCOSE 93 03/16/2024 CALCIUM 9.5 03/16/2024 NA 137 03/16/2024 K 3.9 03/16/2024 CO2 32 03/16/2024 CL 101 03/16/2024 BUN 14 03/16/2024 CREATININE 0.77 03/16/2024 Encounter Date: 03/15/24 ECG 12 lead (Clinic Performed) Narrative Sinus bradycardia ventricular rate 38 QRS 124 QT 468 QTc 372 *Please refer to scanned ECG for final report* [facility] 03/25/2024 1. Right coronary artery system dominance. 2. Multivesel coronary artery disease. 3. Mid LAD 95% calcified lesion; mid 1st OM 95% calcified lesion. 4. Mid 1st OM 95% calcified lesion. 5. Prox RCA 80% calcified lesion; distal RCA 95% diffusely calcified lesion. 6. Chronic total occlusion mid PDA; collateral circulation to PDA. 7. Preserved LV systolic function. TTE 03/16/2024 1. The left ventricular systolic function is normal, with a Jerez's biplane calculated ejection fraction of 68%. 2. Left ventricular diastolic filling was indeterminate. 3. There is moderate concentric left ventricular hypertrophy. 4. There is normal right ventricular global systolic function. 5. Mild aortic valve stenosis. 6. Patient is bradycardic at the time of the echocardiogram. 7. No major changes compared to prior echocardiogram 12/22/2019. Assessment and Plan: Mr. Alli Thompson is an 73 y.o. male who presents with multivessel coronary artery disease. This is associated with fatigue and shortness of breath with effort We had a detailed discussion regarding his symptoms and his coronary angio findings, and since he has a diffuse disease with calcifications in his coronary vessels which might increased operative risk the plan is to explore the option of percutaneous intervention and I called Dr. Hudson who is going to meet the patient for possible PCI Nusrat Marie MD documented in this [facility] Work Phone: 1([phone]) 214-410809-20-2024 Hospital Discharge instructions* Discharge Instructions* Flavia Noland APRN-[employer] - 03/25/2024 10:22 AM EDT Images from the original note were not included. CARDIAC CATHETERIZATION DISCHARGE INSTRUCTIONS FOR SUDDEN AND SEVERE CHEST PAIN, SHORTNESS OF BREATH, EXCESSIVE BLEEDING, SIGNS OF STROKE, OR CHANGES IN MENTAL STATUS YOU SHOULD CALL 911 IMMEDIATELY. If your provider has prescribed aspirin and/or clopidogrel (Plavix), or prasugrel (Effient), or ticagrelor (Brilinta), DO NOT STOP THESE MEDICATIONS for any reason without talking to your speeder machine operator first. If any of these were prescribed, you must take them every day without missing a single dose. If you are getting low on these medications, contact your provider immediately for a refill. FOR NEXT 24 HOURS - Upon discharge, you should return home and rest for the remainder of the day and evening. You do not have to stay on bed rest but should not be very active. It is recommended a responsible adult bewith you for the first 24 hours after the procedure. - No driving for 24 hours after procedure. Please arrange for someone to drive you home from the hospital today. - Do not drive, operate machinery, or use power tools for 24 hours after your procedure. - Do not make any legal decisions for 24 hours after your procedure. - Do not drink alcoholic beverages for 24 hours after your procedure. WOUND CARE *FOR FEMORAL (LEG) ACCESS* Avoid heavy lifting (over 10 pounds) for 7 days, squatting or excessive bending for 2 days, and strenuous exercise for 7 days. No submerged bathing, swimming, or hot tubs for the next 7 days, or until fully healed. Avoid sexual activity for 3-4 days until any groin discomfort has ceased. *FOR RADIAL (WRIST) ACCESS* No lifting more than 5 pounds or excessive use of the wrist for 24 hours - for example, treat your wrist as if it is sprained. Do not engage in vigorous activities (tennis, golf, bowling, weights) for at least 48 hours after the procedure. Do not submerge the wrist for 7 days after the procedure. You should expect mild tingling in your hand and tenderness at the puncture site for up to 3 days. - The transparent dressing should be removed from the site 24 hours after the procedure. Wash the site gently with soap and water. Rinse well and pat dry. Keep the area clean and dry. You may apply aBand-Aid to the site. Avoid lotions, ointments, or powders until fully healed. - You may shower the day after your procedure. - It is normal to notice a small bruise around the puncture site and/or a small grape sized or smaller lump. Any large bruising or large lump warrants a call to the office. - If bleeding should occur, lay down and apply pressure to the affected area for 10 minutes. If thebleeding stops notify your physician. If there is a large amount of bleeding or spurting of blood CALL [address] yourself to the hospital. - You may experience some tenderness, bruising or minimal inflammation. If you have any concerns, you may contact the [facility] or if any of these symptoms become excessive, contact your speeder machine operator or go to the emergency room. OTHER INSTRUCTIONS - You may take acetaminophen (Tylenol) as directed for discomfort. If pain is not relieved with acetaminophen (Tylenol), contact your doctor. - If you notice or experience any of the following, you should notify your doctor or seek medical attention Chest pain or discomfort Change in mental status or weakness in extremities. Dizziness, light headedness, or feeling faint. Change in the site where the procedure was performed, such as bleeding or an increased area of bruising or swelling. Tingling, numbness, pain, or coolness in the leg/arm beyond the site where the procedure was performed. Signs of infection (i.e. shaking chills, temperature > 100 degrees Fahrenheit, warmth, redness) in the leg/arm area where the procedure was performed. Changes in urination Bloody or black stools Vomiting blood Severe nose bleeds Any excessive bleeding - If you DO NOT have an appointment with your speeder machine operator within 2-4 weeks following your procedure, please contact their office. documented in this [facility] Work Phone: 1(504) 966-527309-20-2024 Miscellaneous Notes* Post-Procedure Note - Toby Hudson MD - 03/25/2024 9:40 AM EDT Physician Transition of Care Summary Invasive Cardiovascular Lab Procedure Date: 03/25/2024 Attending: * Toby Hudson - Primary Resident/Fellow/Other Campaign Assistant: Surgeons and Role: * No surgeons found with a matching role * Indications: Pre-op Diagnosis * Abnormal stress test [R94.39] Post-procedure diagnosis: Post-op Diagnosis * Abnormal stress test [R94.39] Procedure(s): Left Heart Cath 05162 - [place] CATH PLMT L HRT & ARTS W/NJX & ANGIO IMG S&I Left Ventriculography Procedure Findings: Multivessel coronary artery disease Mid LAD 95% calcified lesion; mid 1st OM 95% calcified lesion Mid 1st OM 95% calcified lesion Prox RCA 80% calcified lesion; distal RCA 95% diffusely calcified lesion Chronic total occlusion mid PDA; collateral circulation to PDA Preserved LV systolic function Description of the Procedure: Procedure: Left Heart Catheterization R radial artery access with 6F sheath. LV and Ao hemodynamic measurements. S/P Left Heart Catheterization that showed multivessel obstructive coronary artery disease. Mid LAD 95% calcified lesion; mid 1st OM 95% calcified lesion Mid 1st OM 95% calcified lesion Prox RCA 80% calcified lesion; distal RCA 95% diffusely calcified lesion Chronic total occlusion mid PDA; collateral circulation to PDA Preserved LV systolic function Patient remained stable during the entire procedure. No complications. Hemostasis with TR Band. Plan: Patient may be discharged home after bed rest for 3 hours. Constant check for bleeding. Maintain compression band (CB) for 60 minutes past procedure. Remove 3mL of air from CB every 15 minutes until fully deflated. If recurrent bleeding occurs, re-inflate with enough air to fully restore hemostasis (2 to 3 mL, maximum of 18 mL). Maintain CB at this same level for 30 minutes before attempting to re-deflate. Once fully deflated, carefully remove CB and place a sterile dressing over access site. Observe for 15 minutes and check for pulse and for signs of bleeding. Instruct patient not to use or bend their wrist for four hours. Cardiology follow up. Would suggest cardiac surgery evaluation for CABG. EP follow up. Keep guideline-directed medical therapy (GDMT) at this point. Complications: No Stents/Implants: Implants No implant documentation for this case. Anticoagulation/Antiplatelet Plan: ASA Estimated Blood Loss: 3 mL Anesthesia: Moderate Sedation Anesthesia Staff: No anesthesia staff entered. Any Specimen(s) Removed: No specimens collected during this procedure. Disposition: Home Electronically signed by: Toby Hudson MD, 03/25/2024 10:13 AM * Pre-Sedation Documentation - Toby Hudson MD - 03/25/2024 8:05 AM EDT Sedation Plan ASA 3 Mallampati class: II. Risks, benefits, and alternatives discussed with patient. documented in this [facility] Work Phone: 1([phone]) 456-733909-20-2024 Note* Post-Procedure Note - Toby Hudson MD - 03/25/2024 9:40 AM EDT Physician Transition of Care Summary Invasive Cardiovascular Lab Procedure Date: 03/25/2024 Attending: * Toby Hudson - Primary Resident/Fellow/Other Campaign Assistant: Surgeons and Role: * No surgeons found with a matching role * Indications: Pre-op Diagnosis * Abnormal stress test [R94.39] Post-procedure diagnosis: Post-op Diagnosis * Abnormal stress test [R94.39] Procedure(s): Left Heart Cath 62269 - [place] CATH PLMT L HRT & ARTS W/NJX & ANGIO IMG S&I Left Ventriculography Procedure Findings: Multivessel coronary artery disease Mid LAD 95% calcified lesion; mid 1st OM 95% calcified lesion Mid 1st OM 95% calcified lesion Prox RCA 80% calcified lesion; distal RCA 95% diffusely calcified lesion Chronic total occlusion mid PDA; collateral circulation to PDA Preserved LV systolic function Description of the Procedure: Procedure: Left Heart Catheterization R radial artery access with 6F sheath. LV and Ao hemodynamic measurements. S/P Left Heart Catheterization that showed multivessel obstructive coronary artery disease. Mid LAD 95% calcified lesion; mid 1st OM 95% calcified lesion Mid 1st OM 95% calcified lesion Prox RCA 80% calcified lesion; distal RCA 95% diffusely calcified lesion Chronic total occlusion mid PDA; collateral circulation to PDA Preserved LV systolic function Patient remained stable during the entire procedure. No complications. Hemostasis with TR Band. Plan: Patient may be discharged home after bed rest for 3 hours. Constant check for bleeding. Maintain compression band (CB) for 60 minutes past procedure. Remove 3mL of air from CB every 15 minutes until fully deflated. If recurrent bleeding occurs, re-inflate with enough air to fully restore hemostasis (2 to 3 mL, maximum of 18 mL). Maintain CB at this same level for 30 minutes before attempting to re-deflate. Once fully deflated, carefully remove CB and place a sterile dressing over access site. Observe for 15 minutes and check for pulse and for signs of bleeding. Instruct patient not to use or bend their wrist for four hours. Cardiology follow up. Would suggest cardiac surgery evaluation for CABG. EP follow up. Keep guideline-directed medical therapy (GDMT) at this point. Complications: No Stents/Implants: Implants No implant documentation for this case. Anticoagulation/Antiplatelet Plan: ASA Estimated Blood Loss: 3 mL Anesthesia: Moderate Sedation Anesthesia Staff: No anesthesia staff entered. Any Specimen(s) Removed: No specimens collected during this procedure. Disposition: Home Electronically signed by: Toby Hudson MD, 03/25/2024 10:13 AM [facility] Work Phone: 1(129) 585-406609-20-2024 Note* Pre-Sedation Documentation - Toby Hudson MD - 03/25/2024 8:05 AM EDT Sedation Plan ASA 3 Mallampati class: II. Risks, benefits, and alternatives discussed with patient. [facility] Work Phone: 1([phone]) 691-384809-20-2024 Attending History and physical note* Toby Hudson MD - 03/25/2024 8:05 AM EDT H&P reviewed. The patient was examined and there are no changes to the H&P. Source Note - Toby Hudson MD - 02/26/2024 11:00 AM EDT Chief Complaint Patient presents with New Patient Visit Bradycardia. SOB on exertion HPI: I was requested by Dr. Malloy to evaluate this patient in consultation for cardiac assessment. Mr. Alli Thompson is a 73 y.o. year old non-smoker male patient with past medical history significant for hypertension, type 2 diabetes mellitus, hyperlipidemia, prior stroke, arthritis, BPH, coming for assessment of severe sinus bradycardia. Patient heart rate usually on the 30s, he is mostly asy mptomatic, only had 1 episode of surgery where he got dizziness but did not had syncopal episodes. He denies chest pain, shortness of breath, palpitations, leg edema, lightheadedness, headaches, fever, chills, orthopnea, paroxysmal nocturnal dyspnea or syncope. EKG shows bradycardic sinus rhythm with no signs of acute ischemic changes. Past Medical History Past Medical History: Diagnosis Date Arthritis Benign prostatic hyperplasia Diabetes mellitus (Multi) Elevated PSA Hyperlipidemia Hypertension Stroke (Multi) Type 2 diabetes mellitus (Multi) Past Surgical History Past Surgical History: Procedure Laterality Date BACK SURGERY September 2017 CIRCUMCISION, PRIMARY HERNIA REPAIR November 2022 JOINT REPLACEMENT OTHER SURGICAL HISTORY 07/28/2019 Tonsillectomy OTHER SURGICAL HISTORY 07/28/2019 Hip replacement SPINE SURGERY TONSILLECTOMY WISDOM TOOTH EXTRACTION Past Family History Family History Problem Relation Name Age of Onset COPD Mother Savannah Thompson Other (cardiac pacemaker) Father Alli Thompson Heart attack Father Alli Thompson Arthritis Father Alli Thompson Cancer Father Alli Thompson Allergy History No Known Allergies Past Social History Social History Socioeconomic History Marital status: Tobacco Use Smoking status: Never Smokeless tobacco: Never Vaping Use Vaping status: Never Used Substance and Sexual Activity Alcohol use: Never Drug use: Never Sexual activity: Yes Partners: Female control/protection: None Social History Tobacco Use Smoking Status Never Smokeless Tobacco Never Review of Systems: A total of 12 systems have been reviewed and are negative except for the aforementioned findings described in HPI. Objective Data: Last Recorded Vitals: Vitals: 02/26/24 1101 BP: 134/66 Pulse: (!) 39 SpO2: 96% Weight: 81.6 kg (180 lb) Height: 1.676 m (5' 6) Last Labs: CBC - 10/14/2023: 11:11 AM 5.7 14.6 156 43.2 CMP - 02/10/2024: 7:34 AM 9.6 6.6 20 --- 0.6 _ 4.1 19 69 PTT - 10/14/2023: 11:11 AM 1.1 12.7 37 TROPHS Date/Time Value Ref Range Status 10/14/2023 12:07 PM 5 0 - 20 ng/L Final 10/14/2023 11:11 AM 6 0 - 20 ng/L Final HGBA1C Date/Time Value Ref Range Status 12/07/2023 08:09 AM 5.2 see below % Final 05/22/2023 08:29 AM 5.3 see below % Final LDLCALC Date/Time Value Ref Range Status 12/07/2023 08:09 AM 35 <=99 mg/dL Final Comment: Near Borderline AGE Desirable Optimal High High Very High 0-19 Y 0 - 109 --- 110-129 >/= 130 ---- 20-24 Y 0 - 119 --- 120-159 >/= 160 ---- >24 Y 0 - 99 100-129 130-159 160-189 >/=190 05/22/2023 08:29 AM 34 <=99 mg/dL Final Comment: Near Borderline AGE Desirable Optimal High High Very High 0-19 Y 0 - 109 --- 110-129 >/= 130 ---- 20-24 Y 0 - 119 --- 120-159 >/= 160 ---- >24 Y 0 - 99 100-129 130-159 160-189 >/=190 VLDL Date/Time Value Ref Range Status 12/07/2023 08:09 AM 10 0 - 40 mg/dL Final 05/22/2023 08:29 AM 14 0 - 40 mg/dL Final 02/21/2022 09:50 AM 17 0 - 40 mg/dL Final 08/27/2020 10:49 AM 36 0 - 40 mg/dL Final 12/30/2019 09:50 AM 27 0 - 40 mg/dL Final Patient Medications: Outpatient Encounter Medications as of 02/26/2024 Medication Sig Dispense Refill amLODIPine (Norvasc) 5 mg tablet Take 1 tablet (5 mg) by mouth once daily. 90 tablet 3 aspirin 81 mg EC tablet Take 1 tablet (81 mg) by mouth once daily. atorvastatin (Lipitor) 20 mg tablet Take 1 tablet (20 mg) by mouth once daily. 90 tablet 3 cyanocobalamin, vitamin B-12, 1,000 mcg tablet, sublingual Place 1 tablet (1,000 mcg) under the tongue once daily. FreeStyle Lite Strips strip TEST BLOOD SUGAR DAILY - FIRST THING IN THE MORNING BEFORE BREAKFAST 100 strip 3 [place] [facility] [place] blood sugar every morning 100 each 3 lisinopril 40 mg tablet Take 1 tablet (40 mg) by mouth once daily. 90 tablet 3 multivitamin tablet Take 1 tablet by mouth once daily. triamterene (Dyrenium) 50 mg capsule Take 1 capsule (50 mg) by mouth 2 times a day. 60 capsule 11 finasteride (Proscar) 5 mg tablet Take 1 tablet (5 mg) by mouth once daily. Do not crush, chew, or split. hydroCHLOROthiazide (Microzide) 12.5 mg tablet Take 1 tablet (12.5 mg) by mouth once daily. 30 tablet 0 No facility-administered encounter medications on file as of 02/26/2024. Physical Exam: General: alert, oriented and in no acute distress HEENT: NC/AT; EOMI; PERRLA, external ear is normal Neck: supple; trachea midline; no masses; no JVD Chest: clear breath sounds bilaterally; no wheezing Cardio: regular rhythm, S1S2 normal, no murmurs. Bradycardia Abdomen: Soft, non-tender, non-distension, no organomegaly Extremities: no clubbing/cyanosis/edema Neuro: Grossly intact Psychiatric: Normal mood and affect Past Cardiology Results (Last 3 Years): EKG: ECG 12 Lead 10/14/2023 Echo: Echo Results: No results found for this or any previous visit from the past 365 days. Cath: No results found for this or any previous visit from the past 1095 days. CV NCDR CATHPCI V5 COLLECTION FORM Stress Test: No results found for this or any previous visit from the past 1095 days. Cardiac Imaging: No results found for this or any previous visit from the past 1095 days. Assessment/Plan Mr. Alli Thompson is a 73 y.o. year old non-smoker male patient with past medical history significant for hypertension, type 2 diabetes mellitus, hyperlipidemia, prior stroke, arthritis, BPH, coming for assessment of severe sinus bradycardia. Patient heart rate usually on the 30s, he is mostly asy mptomatic, only had 1 episode of surgery where he got dizziness but did not had syncopal episodes. He denies chest pain, shortness of breath, palpitations, leg edema, lightheadedness, headaches, fever, chills, orthopnea, paroxysmal nocturnal dyspnea or syncope. Assessment # Asymptomatic bradycardia / Sick sinus syndrome - Severe bradycardia ~30s. - EKG shows bradycardic sinus rhythm with no signs of acute ischemic changes. - - We will request Regadenoson nuclear stress test (cannot walk 2 blocks without stopping), echocardiogram, 48h holter monitor, CT calcium scoring. - Follow up after tests. # Hypertension - Controlled blood pressure. - Keep current medications including amlodipine 5mg daily, hydrochlorothiazide 12.5mg daily. - Patient counseled to keep a healthy lifestyle including regular exercise and low-sodium diet. - Recommended home blood pressure monitoring. - Goal of BP < 130/80mmHg. # Diabetes - Controlled by PCP. - Counseled on healthy diet and regular exercises. - Discussed need for weight loss and the benefits. - Keep current medications. # Hyperlipidemia - Controlled by PCP. - Keep home medication with Atorvastatin 20mg daily. - Counseled on healthy diet and regular exercise. We have discussed the most common side effects of the prescribed medications, indications, drug interactions, risks, complications, and alternatives of medications/therapeutics were explained and discussed. The patient has been requested to monitor closely for any untoward side effects or complications of medications. The patient has been strongly advised to be compliant with the recommendations,all the questions and concerns have been addressed. The patient has been also instructed to call, to return sooner or to go to the emergency department if symptoms persist or get worsen. The patient voiced understanding and denies any further questions at this time. d This note was transcribed using the [employer] Dictation system. There may be grammatical, punctuation,or verbiage errors that occur with voice recognition programs. Counseling greater than 50% of visit regarding all cardiac issues. Thank you, Dr. Malloy, for allowing me to participate in the care of this patient. Please do not hesitate to contact me with any further questions or concerns. Toby Hudson MD Cardiology [facility] Work Phone: 1(248) [phone] History and physical note* Toby Hudson MD - 03/25/2024 8:05 AM EDT H&P reviewed. The patient was examined and there are no changes to the H&P. Source Note - Toby Hudson MD - 02/26/2024 11:00 AM EDT Chief Complaint Patient presents with New Patient Visit Bradycardia. SOB on exertion HPI: I was requested by Dr. Malloy to evaluate this patient in consultation for cardiac assessment. Mr. Alli Thompson is a 73 y.o. year old non-smoker male patient with past medical history significant for hypertension, type 2 diabetes mellitus, hyperlipidemia, prior stroke, arthritis, BPH, coming for assessment of severe sinus bradycardia. Patient heart rate usually on the 30s, he is mostly asy mptomatic, only had 1 episode of surgery where he got dizziness but did not had syncopal episodes. He denies chest pain, shortness of breath, palpitations, leg edema, lightheadedness, headaches, fever, chills, orthopnea, paroxysmal nocturnal dyspnea or syncope. EKG shows bradycardic sinus rhythm with no signs of acute ischemic changes. Past Medical History Past Medical History: Diagnosis Date Arthritis Benign prostatic hyperplasia Diabetes mellitus (Multi) Elevated PSA Hyperlipidemia Hypertension Stroke (Multi) Type 2 diabetes mellitus (Multi) Past Surgical History Past Surgical History: Procedure Laterality Date BACK SURGERY September 2017 CIRCUMCISION, PRIMARY HERNIA REPAIR November 2022 JOINT REPLACEMENT OTHER SURGICAL HISTORY 07/28/2019 Tonsillectomy OTHER SURGICAL HISTORY 07/28/2019 Hip replacement SPINE SURGERY TONSILLECTOMY WISDOM TOOTH EXTRACTION Past Family History Family History Problem Relation Name Age of Onset COPD Mother Savannah Thompson Other (cardiac pacemaker) Father Alli Thompson Heart attack Father Alli Thompson Arthritis Father Alli Thompson Cancer Father Alli Thompson Allergy History No Known Allergies Past Social History Social History Socioeconomic History Marital status: Tobacco Use Smoking status: Never Smokeless tobacco: Never Vaping Use Vaping status: Never Used Substance and Sexual Activity Alcohol use: Never Drug use: Never Sexual activity: Yes Partners: Female control/protection: None Social History Tobacco Use Smoking Status Never Smokeless Tobacco Never Review of Systems: A total of 12 systems have been reviewed and are negative except for the aforementioned findings described in HPI. Objective Data: Last Recorded Vitals: Vitals: 02/26/24 1101 BP: 134/66 Pulse: (!) 39 SpO2: 96% Weight: 81.6 kg (180 lb) Height: 1.676 m (5' 6) Last Labs: CBC - 10/14/2023: 11:11 AM 5.7 14.6 156 43.2 CMP - 02/10/2024: 7:34 AM 9.6 6.6 20 --- 0.6 _ 4.1 19 69 PTT - 10/14/2023: 11:11 AM 1.1 12.7 37 TROPHS Date/Time Value Ref Range Status 10/14/2023 12:07 PM 5 0 - 20 ng/L Final 10/14/2023 11:11 AM 6 0 - 20 ng/L Final HGBA1C Date/Time Value Ref Range Status 12/07/2023 08:09 AM 5.2 see below % Final 05/22/2023 08:29 AM 5.3 see below % Final LDLCALC Date/Time Value Ref Range Status 12/07/2023 08:09 AM 35 <=99 mg/dL Final Comment: Near Borderline AGE Desirable Optimal High High Very High 0-19 Y 0 - 109 --- 110-129 >/= 130 ---- 20-24 Y 0 - 119 --- 120-159 >/= 160 ---- >24 Y 0 - 99 100-129 130-159 160-189 >/=190 05/22/2023 08:29 AM 34 <=99 mg/dL Final Comment: Near Borderline AGE Desirable Optimal High High Very High 0-19 Y 0 - 109 --- 110-129 >/= 130 ---- 20-24 Y 0 - 119 --- 120-159 >/= 160 ---- >24 Y 0 - 99 100-129 130-159 160-189 >/=190 VLDL Date/Time Value Ref Range Status 12/07/2023 08:09 AM 10 0 - 40 mg/dL Final 05/22/2023 08:29 AM 14 0 - 40 mg/dL Final 02/21/2022 09:50 AM 17 0 - 40 mg/dL Final 08/27/2020 10:49 AM 36 0 - 40 mg/dL Final 12/30/2019 09:50 AM 27 0 - 40 mg/dL Final Patient Medications: Outpatient Encounter Medications as of 02/26/2024 Medication Sig Dispense Refill amLODIPine (Norvasc) 5 mg tablet Take 1 tablet (5 mg) by mouth once daily. 90 tablet 3 aspirin 81 mg EC tablet Take 1 tablet (81 mg) by mouth once daily. atorvastatin (Lipitor) 20 mg tablet Take 1 tablet (20 mg) by mouth once daily. 90 tablet 3 cyanocobalamin, vitamin B-12, 1,000 mcg tablet, sublingual Place 1 tablet (1,000 mcg) under the tongue once daily. FreeStyle Lite Strips strip TEST BLOOD SUGAR DAILY - FIRST THING IN THE MORNING BEFORE BREAKFAST 100 strip 3 [place]ets [facility] [place] blood sugar every morning 100 each 3 lisinopril 40 mg tablet Take 1 tablet (40 mg) by mouth once daily. 90 tablet 3 multivitamin tablet Take 1 tablet by mouth once daily. triamterene (Dyrenium) 50 mg capsule Take 1 capsule (50 mg) by mouth 2 times a day. 60 capsule 11 finasteride (Proscar) 5 mg tablet Take 1 tablet (5 mg) by mouth once daily. Do not crush, chew, or split. hydroCHLOROthiazide (Microzide) 12.5 mg tablet Take 1 tablet (12.5 mg) by mouth once daily. 30 tablet 0 No facility-administered encounter medications on file as of 02/26/2024. Physical Exam: General: alert, oriented and in no acute distress HEENT: NC/AT; EOMI; PERRLA, external ear is normal Neck: supple; trachea midline; no masses; no JVD Chest: clear breath sounds bilaterally; no wheezing Cardio: regular rhythm, S1S2 normal, no murmurs. Bradycardia Abdomen: Soft, non-tender, non-distension, no organomegaly Extremities: no clubbing/cyanosis/edema Neuro: Grossly intact Psychiatric: Normal mood and affect Past Cardiology Results (Last 3 Years): EKG: ECG 12 Lead 10/14/2023 Echo: Echo Results: No results found for this or any previous visit from the past 365 days. Cath: No results found for this or any previous visit from the past 1095 days. CV NCDR CATHPCI V5 COLLECTION FORM Stress Test: No results found for this or any previous visit from the past 1095 days. Cardiac Imaging: No results found for this or any previous visit from the past 1095 days. Assessment/Plan Mr. Alli Thompson is a 73 y.o. year old non-smoker male patient with past medical history significant for hypertension, type 2 diabetes mellitus, hyperlipidemia, prior stroke, arthritis, BPH, coming for assessment of severe sinus bradycardia. Patient heart rate usually on the 30s, he is mostly asy mptomatic, only had 1 episode of surgery where he got dizziness but did not had syncopal episodes. He denies chest pain, shortness of breath, palpitations, leg edema, lightheadedness, headaches, fever, chills, orthopnea, paroxysmal nocturnal dyspnea or syncope. Assessment # Asymptomatic bradycardia / Sick sinus syndrome - Severe bradycardia ~30s. - EKG shows bradycardic sinus rhythm with no signs of acute ischemic changes. - - We will request Regadenoson nuclear stress test (cannot walk 2 blocks without stopping), echocardiogram, 48h holter monitor, CT calcium scoring. - Follow up after tests. # Hypertension - Controlled blood pressure. - Keep current medications including amlodipine 5mg daily, hydrochlorothiazide 12.5mg daily. - Patient counseled to keep a healthy lifestyle including regular exercise and low-sodium diet. - Recommended home blood pressure monitoring. - Goal of BP < 130/80mmHg. # Diabetes - Controlled by PCP. - Counseled on healthy diet and regular exercises. - Discussed need for weight loss and the benefits. - Keep current medications. # Hyperlipidemia - Controlled by PCP. - Keep home medication with Atorvastatin 20mg daily. - Counseled on healthy diet and regular exercise. We have discussed the most common side effects of the prescribed medications, indications, drug interactions, risks, complications, and alternatives of medications/therapeutics were explained and discussed. The patient has been requested to monitor closely for any untoward side effects or complications of medications. The patient has been strongly advised to be compliant with the recommendations,all the questions and concerns have been addressed. The patient has been also instructed to call, to return sooner or to go to the emergency department if symptoms persist or get worsen. The patient voiced understanding and denies any further questions at this time. d This note was transcribed using the [employer] Dictation system. There may be grammatical, punctuation,or verbiage errors that occur with voice recognition programs. Counseling greater than 50% of visit regarding all cardiac issues. Thank you, Dr. Malloy, for allowing me to participate in the care of this patient. Please do not hesitate to contact me with any further questions or concerns. Toby Hudson MD Cardiology documented in this [facility] Work Phone: [phone]) 612-736209-10-2024 History of Present illness Narrative* Randolph Bernal MD - 03/15/2024 10:00 AM EDT Images from the original note were not included. Cardiac Electrophysiology Office Visit Referred by Toby Almendarez* for Chief Complaint Patient presents with [facility] New patient to provider for pacemaker eval. EKG done in office today. HPI: Alli Thompson is a 73 y.o. year old male patient with h/o HTN, type 2 diabetes, HLD, prior CVA, arthritis, BPH and sinus bradycardia [facility] Objective Current Outpatient Medications Medication Instructions amLODIPine (NORVASC) 5 mg, oral, Daily aspirin 81 mg EC tablet 1 tablet, oral, Daily atorvastatin (LIPITOR) 20 mg, oral, Daily cyanocobalamin, vitamin B-12, 1,000 mcg tablet, sublingual 1 tablet, sublingual, Daily finasteride (PROSCAR) 5 mg, oral, Daily, Do not crush, chew, or split. FreeStyle Lite Strips strip TEST BLOOD SUGAR DAILY - FIRST THING IN THE MORNING BEFORE BREAKFAST [place] [facility] [place] blood sugar every morning lisinopril 40 mg, oral, Daily multivitamin tablet 1 tablet, oral, Daily triamterene-hydrochlorothiazid (Maxzide-25) 37.5-25 mg tablet 1 tablet, oral, Daily Visit Vitals BP 130/64 (BP Location: Right arm, Patient Position: Sitting) Pulse (!) 38 Ht 1.676 m (5' 6) Wt 83.7 kg (184 lb 9.6 oz) SpO2 95% BMI 29.80 kg/m Smoking Status Never BSA 1.97 m Physical Exam Vitals reviewed. Constitutional: Appearance: Normal appearance. HENT: Head: Normocephalic. Cardiovascular: Rate and Rhythm: Regular rhythm. Bradycardia present. Pulmonary: Effort: Pulmonary effort is normal. No respiratory distress. Breath sounds: No wheezing. Skin: General: Skin is warm and dry. Capillary Refill: Capillary refill takes less than 2 seconds. Neurological: Mental Status: He is alert. Psychiatric: Mood and Affect: Mood normal. My Interpretation of Reviewed Study(s): Echo (December 2019): Normal LV function EF 60-65%. Normal LA mildly dilated RA. No pericardial effusion 48-hour monitor service attendant (March 2024): Predominant sinus rhythm with an average heart rate of 42 bpm. Longest pause 6.8 seconds at 10:27 AM. 91% of the time spent with heart rate less than60 bpm Nuclear stress Test (March 2024): Small size perfusion defect in distal portion inferior wall that improves with rest compatible with moderate severity inducible CT Assessment/Plan #Sinus Bradycardia Patient has significant bradycardic burden with increased fatigue and shortness of breath. Some intermittent episodes of dizziness. Not on any AV holly blocking agents. He had episode of syncope earlier in the year, he was walking and had LOC. He has also had episode of near syncope. Interestingly patient had a recent nuclear study which was abnormal we will consult with referring speeder machine operator regarding further workup. If no intervention required then likely proceed with dual-chamber pacemaker implantation Pending Echo Will discuss with Dr. Hudson about need for Cath given Abnormal Stress If No Intervention needed - then plan for dcPPM # Pre-procedure Planning Procedure Type: Dual chamber pacemaker - [employer] Planned Date: 03/28/24 - [facility] Anesthesia Needed: Moderate Sedation Anticoagulation: None Antiplatelet agents: None SGLT2 Inhibitors: No Other medication changes needed for procedure: Hold Morning of procedure Contrast allergy? No Imaging needed? No Blood work ordered: CBC and BMP ordered within 30 days of procedure (encourage within 1-2 weeks) Return to Clinic: Patient should return to the EP Clinic in 1 week post implant for incision check,4 weeks post implant for device clinic and 2-month follow-up in clinic Randolph Bernal MD [facility] Cardiac Electrophysiology [email or web address] Disclaimer: This note was dictated by speech recognition, and every effort has been made to prevent any error in tobacco warehouse manager, however minor errors may be present documented in this [facility] Work Phone: [phone]) 181-488808-23-2024 History of Present illness Narrative* Toby Hudson MD - 02/26/2024 11:00 AM EDT Chief Complaint Patient presents with New Patient Visit Bradycardia. SOB on exertion HPI: I was requested by Dr. Malloy to evaluate this patient in consultation for cardiac assessment. Mr. Alli Thompson is a 73 y.o. year old non-smoker male patient with past medical history significant for hypertension, type 2 diabetes mellitus, hyperlipidemia, prior stroke, arthritis, BPH, coming for assessment of severe sinus bradycardia. Patient heart rate usually on the 30s, he is mostly asy mptomatic, only had 1 episode of surgery where he got dizziness but did not had syncopal episodes. He denies chest pain, shortness of breath, palpitations, leg edema, lightheadedness, headaches, fever, chills, orthopnea, paroxysmal nocturnal dyspnea or syncope. EKG shows bradycardic sinus rhythm with no signs of acute ischemic changes. Past Medical History Past Medical History: Diagnosis Date Arthritis Benign prostatic hyperplasia Diabetes mellitus (Multi) Elevated PSA Hyperlipidemia Hypertension Stroke (Multi) Type 2 diabetes mellitus (Multi) Past Surgical History Past Surgical History: Procedure Laterality Date BACK SURGERY September 2017 CIRCUMCISION, PRIMARY HERNIA REPAIR November 2022 JOINT REPLACEMENT OTHER SURGICAL HISTORY 07/28/2019 Tonsillectomy OTHER SURGICAL HISTORY 07/28/2019 Hip replacement SPINE SURGERY TONSILLECTOMY WISDOM TOOTH EXTRACTION Past Family History Family History Problem Relation Name Age of Onset COPD Mother Savannah Thompson Other (cardiac pacemaker) Father Alli Thompson Heart attack Father Alli Thompson Arthritis Father Alli Thompson Cancer Father Alli Thompson Allergy History No Known Allergies Past Social History Social History Socioeconomic History Marital status: Tobacco Use Smoking status: Never Smokeless tobacco: Never Vaping Use Vaping status: Never Used Substance and Sexual Activity Alcohol use: Never Drug use: Never Sexual activity: Yes Partners: Female control/protection: None Social History Tobacco Use Smoking Status Never Smokeless Tobacco Never Review of Systems: A total of 12 systems have been reviewed and are negative except for the aforementioned findings described in HPI. Objective Data: Last Recorded Vitals: Vitals: 02/26/24 1101 BP: 134/66 Pulse: (!) 39 SpO2: 96% Weight: 81.6 kg (180 lb) Height: 1.676 m (5' 6) Last Labs: CBC - 10/14/2023: 11:11 AM 5.7 14.6 156 43.2 CMP - 02/10/2024: 7:34 AM 9.6 6.6 20 --- 0.6 _ 4.1 19 69 PTT - 10/14/2023: 11:11 AM 1.1 12.7 37 TROPHS Date/Time Value Ref Range Status 10/14/2023 12:07 PM 5 0 - 20 ng/L Final 10/14/2023 11:11 AM 6 0 - 20 ng/L Final HGBA1C Date/Time Value Ref Range Status 12/07/2023 08:09 AM 5.2 see below % Final 05/22/2023 08:29 AM 5.3 see below % Final LDLCALC Date/Time Value Ref Range Status 12/07/2023 08:09 AM 35 <=99 mg/dL Final Comment: Near Borderline AGE Desirable Optimal High High Very High 0-19 Y 0 - 109 --- 110-129 >/= 130 ---- 20-24 Y 0 - 119 --- 120-159 >/= 160 ---- >24 Y 0 - 99 100-129 130-159 160-189 >/=190 05/22/2023 08:29 AM 34 <=99 mg/dL Final Comment: Near Borderline AGE Desirable Optimal High High Very High 0-19 Y 0 - 109 --- 110-129 >/= 130 ---- 20-24 Y 0 - 119 --- 120-159 >/= 160 ---- >24 Y 0 - 99 100-129 130-159 160-189 >/=190 VLDL Date/Time Value Ref Range Status 12/07/2023 08:09 AM 10 0 - 40 mg/dL Final 05/22/2023 08:29 AM 14 0 - 40 mg/dL Final 02/21/2022 09:50 AM 17 0 - 40 mg/dL Final 08/27/2020 10:49 AM 36 0 - 40 mg/dL Final 12/30/2019 09:50 AM 27 0 - 40 mg/dL Final Patient Medications: Outpatient Encounter Medications as of 02/26/2024 Medication Sig Dispense Refill amLODIPine (Norvasc) 5 mg tablet Take 1 tablet (5 mg) by mouth once daily. 90 tablet 3 aspirin 81 mg EC tablet Take 1 tablet (81 mg) by mouth once daily. atorvastatin (Lipitor) 20 mg tablet Take 1 tablet (20 mg) by mouth once daily. 90 tablet 3 cyanocobalamin, vitamin B-12, 1,000 mcg tablet, sublingual Place 1 tablet (1,000 mcg) under the tongue once daily. FreeStyle Lite Strips strip TEST BLOOD SUGAR DAILY - FIRST THING IN THE MORNING BEFORE BREAKFAST 100 strip 3 [place]ets [facility] [place] blood sugar every morning 100 each 3 lisinopril 40 mg tablet Take 1 tablet (40 mg) by mouth once daily. 90 tablet 3 multivitamin tablet Take 1 tablet by mouth once daily. triamterene (Dyrenium) 50 mg capsule Take 1 capsule (50 mg) by mouth 2 times a day. 60 capsule 11 finasteride (Proscar) 5 mg tablet Take 1 tablet (5 mg) by mouth once daily. Do not crush, chew, or split. hydroCHLOROthiazide (Microzide) 12.5 mg tablet Take 1 tablet (12.5 mg) by mouth once daily. 30 tablet 0 No facility-administered encounter medications on file as of 02/26/2024. Physical Exam: General: alert, oriented and in no acute distress HEENT: NC/AT; EOMI; PERRLA, external ear is normal Neck: supple; trachea midline; no masses; no JVD Chest: clear breath sounds bilaterally; no wheezing Cardio: regular rhythm, S1S2 normal, no murmurs. Bradycardia Abdomen: Soft, non-tender, non-distension, no organomegaly Extremities: no clubbing/cyanosis/edema Neuro: Grossly intact Psychiatric: Normal mood and affect Past Cardiology Results (Last 3 Years): EKG: ECG 12 Lead 10/14/2023 Echo: Echo Results: No results found for this or any previous visit from the past 365 days. Cath: No results found for this or any previous visit from the past 1095 days. CV NCDR CATHPCI V5 COLLECTION FORM Stress Test: No results found for this or any previous visit from the past 1095 days. Cardiac Imaging: No results found for this or any previous visit from the past 1095 days. Assessment/Plan Mr. Alli Thompson is a 73 y.o. year old non-smoker male patient with past medical history significant for hypertension, type 2 diabetes mellitus, hyperlipidemia, prior stroke, arthritis, BPH, coming for assessment of severe sinus bradycardia. Patient heart rate usually on the 30s, he is mostly asy mptomatic, only had 1 episode of surgery where he got dizziness but did not had syncopal episodes. He denies chest pain, shortness of breath, palpitations, leg edema, lightheadedness, headaches, fever, chills, orthopnea, paroxysmal nocturnal dyspnea or syncope. Assessment # Asymptomatic bradycardia / Sick sinus syndrome - Severe bradycardia ~30s. - EKG shows bradycardic sinus rhythm with no signs of acute ischemic changes. - - We will request Regadenoson nuclear stress test (cannot walk 2 blocks without stopping), echocardiogram, 48h holter monitor, CT calcium scoring. - Follow up after tests. # Hypertension - Controlled blood pressure. - Keep current medications including amlodipine 5mg daily, hydrochlorothiazide 12.5mg daily. - Patient counseled to keep a healthy lifestyle including regular exercise and low-sodium diet. - Recommended home blood pressure monitoring. - Goal of BP < 130/80mmHg. # Diabetes - Controlled by PCP. - Counseled on healthy diet and regular exercises. - Discussed need for weight loss and the benefits. - Keep current medications. # Hyperlipidemia - Controlled by PCP. - Keep home medication with Atorvastatin 20mg daily. - Counseled on healthy diet and regular exercise. We have discussed the most common side effects of the prescribed medications, indications, drug interactions, risks, complications, and alternatives of medications/therapeutics were explained and discussed. The patient has been requested to monitor closely for any untoward side effects or complications of medications. The patient has been strongly advised to be compliant with the recommendations,all the questions and concerns have been addressed. The patient has been also instructed to call, to return sooner or to go to the emergency department if symptoms persist or get worsen. The patient voiced understanding and denies any further questions at this time. d This note was transcribed using the [employer] Dictation system. There may be grammatical, punctuation,or verbiage errors that occur with voice recognition programs. Counseling greater than 50% of visit regarding all cardiac issues. Thank you, Dr. Malloy, for allowing me to participate in the care of this patient. Please do not hesitate to contact me with any further questions or concerns. Toby Hudson MD Cardiology documented in this [facility] Work Phone: [phone]) 179-786208-16-2024 History of Present illness Narrative* Segundo Malloy MD MPH - 02/19/2024 10:00 AM EDT Subjective Patient ID: Alli Thompson is a 73 y.o. male who presents for Follow-up. HPI PT is here today for 2 month FUV. Did get his BMP done. Reports he is did some changes to meds thathe would like to go over this with PCP. Reports he is still doing the half of the 25 mg of the hydrochlorothiazide/Triamterene in half making it 12.5 and he thinks he's taking 18.5 of the triamterene. reports he picked up the new pills but has not started them. He reports he did not start the triamterene by it self. He still doing the combo med which he is cutting in half. Was started on Lupron. Sodium improved a little but still abnormal. Blood pressure is still under control. Will discontinue hydrochlorothiazide and continue with triamterene. Bradycardia noticed today. His pulse has been in 60s usually. Lately been in 50s or low per patientreport. Today pulse is 42. Most recent EKG showed 1st degree AV block, right bundle branch blocka dn left anterior fascicular block. Reports that intermittently feeling lightheaded as well. Referral to cards for further management given the symptomatic bradycardia. Review of Systems ROS negative except discussed above in HPI. Vitals: 02/19/24 1002 BP: 132/68 Pulse: (!) 42 SpO2: 98% Objective Physical Exam Constitutional: Appearance: Normal appearance. Cardiovascular: Rate and Rhythm: Regular rhythm. Bradycardia present. Pulses: Normal pulses. Heart sounds: Normal heart sounds. Pulmonary: Effort: Pulmonary effort is normal. Breath sounds: Normal breath sounds. Neurological: Mental Status: He is alert. Assessment/Plan Alli was seen today for follow-up. Diagnoses and all orders for this visit: HTN (hypertension), benign (Primary) - Basic Metabolic Panel; Future Bradycardia - Referral to Cardiology; Future Follow up in 3 months. Discussed with patient that I will be leaving [facility] at the end of February. Discussed options to transfer care. Segundo Malloy MD MPH [facility] Work Phone: [phone]) 542-344508-07-2024 History of Present illness Narrative* Alli Orona MD - 02/10/2024 3:45 PM EDT Subjective Patient ID: Alli Thompson is a 73 y.o. male. HPI Patient is here for Lupron and bone scan results. He is deciding on Defenitive Tx. Recent Path showed prostate cancer. Zoran 8. Recent Bone scan showed NO METS. Most recent PSA was 11.06 (on Proscar) on 11/26. Prior PSA was 8.06 on 03/28 AND THIS WAS ON FINASTERIDE. . Prior PSA was 5.14 on 08/28.On Finasteride since 04/26. Prior PSA was 4.40 on 02/24. (He did stop finasteride on 10/25) . Prior PSA was 2.23 on 08/27. Prior PSA was 0.99 on 08/26. Negative Trus bx on 05/28. MRI bx on 11/25 was negative.. Hx of kidney stones. No recent sx. Denies flank pain. Denies N/V and F/C. Chronic LUTS are moderate and stable. Some urgency and frequency. Denies dysuria. Denies hematuria. Nocturia 4-5x. He did recently start back on Finasteride. He has failed Uroxatral in the past. ED is chronic. No medicationfor this Review of Systems Constitutional: Negative for chills and fever. HENT: Negative. Eyes: Negative. Respiratory: Negative for cough and shortness of breath. Cardiovascular: Negative for chest pain and leg swelling. Gastrointestinal: Negative for nausea. Endocrine: Negative. Genitourinary: Negative for difficulty urinating. Negative except for documented in HPI Allergic/Immunologic: Negative. Neurological: Alert & oriented X 3 Hematological: Denies blood thinners Psychiatric/Behavioral: Negative. Objective Physical Exam Vitals and nursing note reviewed. Pulmonary: Effort: Pulmonary effort is normal. Abdominal: Palpations: Abdomen is soft. Tenderness: There is no abdominal tenderness. Genitourinary: Comments: Kidneys non palpable bilaterally Bladder non palpable or tender Neurological: Mental Status: He is alert. Assessment/Plan Diagnoses and all orders for this visit: Prostate cancer (Multi) Erectile dysfunction of organic origin Elevated PSA Nocturia All available PSA values reviewed, Options discussed. Questions answered. Pros/cons of Lupron Discussed Lupron 45mg IM given Bone scan reviewed-NO METS MRI showed no adenopathy Diet changes for prostate health discussed and educational information given. Pros/Cons of prostatehealth supplements discussed. Treatment options for LUTS reviewed discontinue Proscar Discussed timed voiding. Discussed fluid and caffeine intake Treatment options for ED reviewed OBSERVE F/U 3 months with PSA and then to discuss definitive Tx documented in this [facility] Work Phone: 1([phone]) 450-222507-17-2024 History of Present illness Narrative* Alli Orona MD - 01/20/2024 10:45 AM EDT Subjective Patient ID: Alli Thompson is a 73 y.o. male. HPI Patient is here for prostate MRI bx results. Path showed prostate cancer. Zoran 8. Most recent PSA was 11.06 (on Proscar) on 11/26. Prior PSA was 8.06 on 03/28 AND THIS WAS ON FINASTERIDE. . Prior PSA was 5.14 on 08/28.On Finasteride since 04/26. Prior PSA was 4.40 on 02/24. (He did stop finasteride on 10/25) . Prior PSA was 2.23 on 08/27. Prior PSA was 0.99 on 08/26. Negative Trus bx on 05/28. MRI bxon 11/25 was negative. . Hx of kidney stones. No recent sx. Denies flank pain. Denies N/V and F/C. Chronic LUTS are moderate and stable. Some urgency and frequency. Denies dysuria. Denies hematuria. Nocturia 4-5x. He did recently start back on Finasteride. He has failed Uroxatral in the past. ED is c hronic. No medication for this Review of Systems Constitutional: Negative for chills and fever. HENT: Negative. Eyes: Negative. Respiratory: Negative for cough and shortness of breath. Cardiovascular: Negative for chest pain and leg swelling. Gastrointestinal: Negative for nausea. Endocrine: Negative. Genitourinary: Negative for difficulty urinating. Negative except for documented in HPI Allergic/Immunologic: Negative. Neurological: Alert & oriented X 3 Hematological: Denies blood thinners Psychiatric/Behavioral: Negative. Objective Physical Exam Vitals and nursing note reviewed. Pulmonary: Effort: Pulmonary effort is normal. Abdominal: Palpations: Abdomen is soft. Tenderness: There is no abdominal tenderness. Genitourinary: Comments: Kidneys non palpable bilaterally Bladder non palpable or tender Neurological: Mental Status: He is alert. Assessment/Plan Diagnoses and all orders for this visit: Elevated PSA Nocturia Erectile dysfunction of organic origin Benign prostatic hyperplasia with lower urinary tract symptoms, symptom details unspecified All available PSA values reviewed, Options discussed. Questions answered. Path report reviewed. Tx Options discussed. Pros/cons of tx options reviewed. Questions answered Casodex Rx given Will plan Lurpon and XRT as definitive Tx of prostate cancer-referral made Discussed Bone scan-Ordered Diet changes for prostate health discussed and educational information given. Pros/Cons of prostatehealth supplements discussed. Treatment options for LUTS reviewed discontinue Proscar Discussed timed voiding. Discussed fluid and caffeine intake Treatment options for ED iapaiqdy-Goofsnb-biqm is not an issue Lifestyle change to help prevent UTIs discussed. Encouraged fluid intake. F/U Lupron after Bone Scan documented in this [facility] Work Phone: 1([phone]) 672-775806-28-2024 NoteHNO ID: [id number] Author: DELILAH CHRISTIAN MD Service: ? Author Type: Physician Type: Progress Notes Filed: 01/01/2024 10:22 Note Text: ASSESSMENT/PLAN: 1. 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 - ICD9: 377.49, ICD10: H47.391 (primary diagnosis) - hemorrhage resolved/ monitor 2. Glaucoma suspect of both eyes - ICD9: 365.00, ICD10: H40.003 3. Optic cupping of both eyes - ICD9: 377.14, ICD10: H47.233 - inferior nasal step left eye. - See Dr. Max Mccann in 3 months for visual field and OCT of optic nerve. 4. Epiretinal membrane, both eyes - ICD9: 362.56, ICD10: H35.373 -stable/ monitor 5. Type 2 diabetes mellitus without retinopathy (HCC) - ICD9: 250.00, ICD10: E11.9 -Please keep your blood sugar under good control to minimize risk of ocular complications from diabetes. 6. Essential hypertension - ICD9: 401.9, ICD10: I10 -continue to monitor with primary care physician. I have confirmed and edited as necessary the relevant HPI, ophthalmic history, ROS, and the neuro exam findings as obtained by others. I have seen and examined Alli Benton Arlette. I have discussed the case and the management of this patient's care with the Resident/Fellow, if applicable. I also have reviewed and agree with the assessment and plan as stated above and agree with all of its relevant components.[facility] History of Present illness Narrative* Delilah Christian MD - 01/01/2024 10:17 AM EDT ASSESSMENT/PLAN: 1. 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 - ICD9: 377.49, ICD10: H47.391 (primary diagnosis) - hemorrhage resolved/ monitor 2. Glaucoma suspect of both eyes - ICD9: 365.00, ICD10: H40.003 3. Optic cupping of both eyes - ICD9: 377.14, ICD10: H47.233 - inferior nasal step left eye. - See Dr. Max Mccann in 3 months for visual field and OCT of optic nerve. 4. Epiretinal membrane, both eyes - ICD9: 362.56, ICD10: H35.373 -stable/ monitor 5. Type 2 diabetes mellitus without retinopathy (HCC) - ICD9: 250.00, ICD10: E11.9 -Please keep your blood sugar under good control to minimize risk of ocular complications from diabetes. 6. Essential hypertension - ICD9: 401.9, ICD10: I10 -continue to monitor with primary care physician. I have confirmed and edited as necessary the relevant HPI, ophthalmic history, ROS, and the neuro exam findings as obtained by others. I have seen and examined Alli Benton Sangitashilpi. I have discussed the case and the management of this patient's care with the Resident/Fellow, if applicable. I also have reviewed and agree with the assessment and plan as stated above and agree withall of its relevant components. [facility] NoteDate of Procedure 01/01/2024. Reliability Right Eye Good. Left Eye Good. Interpretation Right Eye Normal. Left Eye Nasal step defect; Comments: (Inferior nasal step). Interval Change Right Eye Stable. Left Eye Stable.[id number] Instructions* Patient Instructions* Delilah Christian MD - 01/01/2024 10:02 AM EDT Please keep your blood sugar under good control to minimize risk of ocular complications from diabetes. Dr. Max Mccann in 3 months for visual field and OCT of optic nerve. Return in 6 months. If you have any questions please contact our office at [phone]. After office hours or on the weekend, please call Dr. Christian on his cell phone at [phone]. documented in this [facility]-28-2024 NoteDate of Procedure 01/01/2024. Residential Appliance Repair Technician Information Dope Sprayer: isabell. C/D Ratio Right Eye 0.4. Left Eye 0.3. Disc Right Eye Cupping. Left Eye Cupping. Macula Right Eye Epiretinal membrane. Left Eye Epiretinal membrane. Periphery Right Eye Normal. Left Eye Normal.[id number] Hospital Discharge instructions* Discharge Instructions* Laury Condon RN - 12/29/2023 8:[address] Zapata discharge instructions sheet discussed and given to pt and spouse documented in this [facility] Work Phone: 1(244) 568-870406-25-2024 Miscellaneous Notes* Op Note - Alli Orona MD - 12/29/2023 7:42 AM EDT Ultrasound guidance for Prostate Fusion Bx, Biopsy Prostate with Navigation, Ultrasonography Transrectal Prostate Operative Note Date: 12/29/2023 OR Location: [facility] OR Name: Alli Thompson, : 1950, Age: 73 y.o., , Sex: male Diagnosis Pre-op Diagnosis * Elevated PSA [R97.20] Post-op Diagnosis * Elevated PSA [R97.20] Procedures [place] [address] - CHG US GUIDANCE NEEDLE PLACEMENT IMG S&I Biopsy Prostate with Navigation 34526 - [place] PROSTATE NEEDLE BIOPSY ANY APPROACH Ultrasonography Transrectal Prostate 44116 - G US TRANSRECTAL Surgeons * Alli Orona - Primary Resident/Fellow/Other Campaign Assistant: Surgeons and Role: * No surgeons found with a matching role * Procedure Summary Anesthesia: Monitor Anesthesia Care ASA: II Anesthesia Staff: Anesthesiologist: Flavia Head MD Estimated Blood Loss: 0mL Intra-op Medications: Administrations occurring from 0730 to 0745 on 12/29/23: Medication Name Total Dose midazolam (Versed) injection 1 mg 1 mg Anesthesia Record Intraprocedure I/O Totals Intake Propofol Drip 0.00 mL The total shown is the total volume documented since Anesthesia Start was filed. Total Intake 0 mL Specimen: ID Type Source Tests Collected by Time 1 : PROSTATE NEEDLE BIOPSY RIGHT Tissue PROSTATE NEEDLE BIOPSY RIGHT SURGICAL PATHOLOGY EXAM Nicolle Hennessy RN 12/29/2023 0743 2 : PROSTATE NEEDLE BIOPSY LEFT Tissue PROSTATE NEEDLE BIOPSY LEFT SURGICAL PATHOLOGY EXAM Nicolle Hennessy RN 12/29/2023 0743 3 : AREA OF INTEREST#1 Tissue PROSTATE BIOPSY TARGETED JERRI SURGICAL PATHOLOGY EXAM Nicolle Hennessy RN12/29/2023 0743 Staff: Abhay: Pete Hollis Person: Michele Gas Engine Operator Compressors: Nicolle Indications: Alli Thompson is an 73 y.o. male who is having surgery for Elevated PSA [R97.20]. The patient was seen in the preoperative area. The risks, benefits, complications, treatment options, non-operative alternatives, expected recovery and outcomes were discussed with the patient. The possibilities of reaction to medication, pulmonary aspiration, injury to surrounding structures, bleeding, recurrent infection, the need for additional procedures, failure to diagnose a condition, and creating a complication requiring transfusion or operation were discussed with the patient. The patient concurred with the proposed plan, giving informed consent. The site of surgery was properly noted/marked if necessary per policy. The patient has been actively warmed in preoperative area. Pre Op dx: Elevated PSA and Abnormal MRI of the prostate Post Op Dx: SAME Procedure: MRI Guided Fusion Bx of the prostate Physician: ADWOA Anesthesia: MAC Estimated Blood Loss: Minimal Complications: NONE Indications and Consent: Patient present for prostate Biopsy of lesion found on MRI. After the risks,, benefits, and indications were explained he consented to the procedure. PROCEDURE: After adequate sedation was obtained the ultrasound probe was inserted into the rectum. An ultrasound sweep of the prostate was performed. These images were then fused with the previously obtained MRI images. The lesion(s) were identified. Multiple targeted biopsies were obtained . I also performed standard Sextant biopsies of the right and left lobe of the prostate. The patient tolerated the procedure well. Attending Attestation: I was present and scrubbed for the entire procedure. Alli Orona * Preprocedure Instructions - Sheyla Jimenez RN - 12/24/2023 10:54 AM EDT No outpatient medications have been marked as taking for the 12/29/23 encounter (Hospital Encounter). 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 need crude oil driver home, will receive call day before surgery with arrival time [facility] Work Phone: 1(370) 994-610506-25-2024 Note* Op Note - Alli Orona MD - 12/29/2023 7:42 AM EDT Ultrasound guidance for Prostate Fusion Bx, Biopsy Prostate with Navigation, Ultrasonography Transrectal Prostate Operative Note Date: 12/29/2023 OR Location: [facility] OR Name: Alli Thompson, : 1950, Age: 73 y.o., , Sex: male Diagnosis Pre-op Diagnosis * Elevated PSA [R97.20] Post-op Diagnosis * Elevated PSA [R97.20] Procedures Ultrasound [place] Bx 04105 - CHG US GUIDANCE NEEDLE PLACEMENT IMG S&I Biopsy Prostate with Navigation 86464 - [place] PROSTATE NEEDLE BIOPSY ANY APPROACH Ultrasonography Transrectal Prostate 00539 - G US TRANSRECTAL Surgeons * Alli Orona - Primary Resident/Fellow/Other Campaign Assistant: Surgeons and Role: * No surgeons found with a matching role * Procedure Summary Anesthesia: Monitor Anesthesia Care ASA: II Anesthesia Staff: Anesthesiologist: Flavia Head MD Estimated Blood Loss: 0mL Intra-op Medications: Administrations occurring from 0730 to 0745 on 12/29/23: Medication Name Total Dose midazolam (Versed) injection 1 mg 1 mg Anesthesia Record Intraprocedure I/O Totals Intake Propofol Drip 0.00 mL The total shown is the total volume documented since Anesthesia Start was filed. Total Intake 0 mL Specimen: ID Type Source Tests Collected by Time 1 : PROSTATE NEEDLE BIOPSY RIGHT Tissue PROSTATE NEEDLE BIOPSY RIGHT SURGICAL PATHOLOGY EXAM Nicolle Hennessy RN 12/29/2023 0743 2 : PROSTATE NEEDLE BIOPSY LEFT Tissue PROSTATE NEEDLE BIOPSY LEFT SURGICAL PATHOLOGY EXAM Nicolle Hennessy RN 12/29/2023 0743 3 : AREA OF INTEREST#1 Tissue PROSTATE BIOPSY TARGETED JERRI SURGICAL PATHOLOGY EXAM Nicolle Hennessy RN12/29/2023 0743 Staff: Gas Engine Operator Compressors: Pete Hollis Person: Michele Gas Engine Operator Compressors: Nicolle Indications: Alli Thompson is an 73 y.o. male who is having surgery for Elevated PSA [R97.20]. The patient was seen in the preoperative area. The risks, benefits, complications, treatment options, non-operative alternatives, expected recovery and outcomes were discussed with the patient. The possibilities of reaction to medication, pulmonary aspiration, injury to surrounding structures, bleeding, recurrent infection, the need for additional procedures, failure to diagnose a condition, and creating a complication requiring transfusion or operation were discussed with the patient. The patient concurred with the proposed plan, giving informed consent. The site of surgery was properly noted/marked if necessary per policy. The patient has been actively warmed in preoperative area. Pre Op dx: Elevated PSA and Abnormal MRI of the prostate Post Op Dx: SAME Procedure: MRI Guided Fusion Bx of the prostate Physician: ADWOA Anesthesia: MAC Estimated Blood Loss: Minimal Complications: NONE Indications and Consent: Patient present for prostate Biopsy of lesion found on MRI. After the risks,, benefits, and indications were explained he consented to the procedure. PROCEDURE: After adequate sedation was obtained the ultrasound probe was inserted into the rectum. An ultrasound sweep of the prostate was performed. These images were then fused with the previously obtained MRI images. The lesion(s) were identified. Multiple targeted biopsies were obtained . I also performed standard Sextant biopsies of the right and left lobe of the prostate. The patient tolerated the procedure well. Attending Attestation: I was present and scrubbed for the entire procedure. Alli Orona [facility] Work Phone: 1([phone]) 188-842106-25-2024 Attending History and physical note* Alli Orona MD - 12/29/2023 7:26 AM EDT H&P reviewed. The patient was examined and there are no changes to the H&P. Source Note - Alli Orona MD - 12/09/2023 2:30 PM EDT Subjective Patient ID: Alli Thompson is a 73 y.o. male. HPI Patient is here for MRI results. MRI showed stable PI-RAD 4 lesion. . Hx of elevated PSA.. Most recent PSA was 11.06 (on Proscar) on 11/26. Prior PSA was 8.06 on 03/28 AND THIS WAS ON FINASTERIDE. . Prior PSA was 5.14 on 08/28.On Finasteride since 04/26. Prior PSA was 4.40 on 02/24. (He did stop finasteride on 10/25) . Prior PSA was 2.23 on 08/27. Prior PSA was 0.99 on 08/26. Negative Trus bx on 05/28. MRI bx on 11/25 was negative. . Hx of kidney stones. No recent sx. Denies flank pain. Denies N/V and F/C. Chronic BPH sx are mild and stable. SOme urgency and frequency. Denies dysuria. Denies hematuria. Nocturia 4-5x. He did recently start back on Finasteride. He has failed Uroxatral in the past. Ralph chronic. No medication for this Review of Systems Constitutional: Negative for chills and fever. HENT: Negative. Eyes: Negative. Respiratory: Negative for cough and shortness of breath. Cardiovascular: Negative for chest pain and leg swelling. Gastrointestinal: Negative for nausea. Endocrine: Negative. Genitourinary: Negative for difficulty urinating. Negative except for documented in HPI Allergic/Immunologic: Negative. Neurological: Alert & oriented X 3 Hematological: Denies blood thinners Psychiatric/Behavioral: Negative. Objective Physical Exam Vitals and nursing note reviewed. Pulmonary: Effort: Pulmonary effort is normal. Abdominal: Palpations: Abdomen is soft. Tenderness: There is no abdominal tenderness. Genitourinary: Comments: Kidneys non palpable bilaterally Bladder non palpable or tender Neurological: Mental Status: He is alert. Assessment/Plan Diagnoses and all orders for this visit: Elevated PSA Nocturia Erectile dysfunction of organic origin Benign prostatic hyperplasia with lower urinary tract symptoms, symptom details unspecified Calculus of kidney All available PSA values reviewed, Options discussed. Questions answered. Pros and cons of prostate biopsy reviewed. Other options discussed. Questions answered MRI reviewed MRI Fusion Bx scheduled Cipro Rx given Diet changes for prostate health discussed and educational information given. Pros/Cons of prostatehealth supplements discussed. Treatment options for LUTS reviewed Continue Proscar Discussed timed voiding. Discussed fluid and caffeine intake Treatment options for ED reviewed-Observe Lifestyle change to help prevent UTIs discussed. Encouraged fluid intake. F/U MRI fusion Bx [facility] Work Phone: [phone] History and physical note* Alli Orona MD - 12/29/2023 7:26 AM EDT H&P reviewed. The patient was examined and there are no changes to the H&P. Source Note - Alli Orona MD - 12/09/2023 2:30 PM EDT Subjective Patient ID: Alli Thompson is a 73 y.o. male. HPI Patient is here for MRI results. MRI showed stable PI-RAD 4 lesion. . Hx of elevated PSA.. Most recent PSA was 11.06 (on Proscar) on 11/26. Prior PSA was 8.06 on 03/28 AND THIS WAS ON FINASTERIDE. . Prior PSA was 5.14 on 2/23.On Finasteride since 04/26. Prior PSA was 4.40 on 02/24. (He did stop finasteride on 10/25) . Prior PSA was 2.23 on 08/27. Prior PSA was 0.99 on 08/26. Negative Trus bx on 05/28. MRI bx on 11/25 was negative. . Hx of kidney stones. No recent sx. Denies flank pain. Denies N/V and F/C. Chronic BPH sx are mild and stable. SOme urgency and frequency. Denies dysuria. Denies hematuria. Nocturia 4-5x. He did recently start back on Finasteride. He has failed Uroxatral in the past. Ralph chronic. No medication for this Review of Systems Constitutional: Negative for chills and fever. HENT: Negative. Eyes: Negative. Respiratory: Negative for cough and shortness of breath. Cardiovascular: Negative for chest pain and leg swelling. Gastrointestinal: Negative for nausea. Endocrine: Negative. Genitourinary: Negative for difficulty urinating. Negative except for documented in HPI Allergic/Immunologic: Negative. Neurological: Alert & oriented X 3 Hematological: Denies blood thinners Psychiatric/Behavioral: Negative. Objective Physical Exam Vitals and nursing note reviewed. Pulmonary: Effort: Pulmonary effort is normal. Abdominal: Palpations: Abdomen is soft. Tenderness: There is no abdominal tenderness. Genitourinary: Comments: Kidneys non palpable bilaterally Bladder non palpable or tender Neurological: Mental Status: He is alert. Assessment/Plan Diagnoses and all orders for this visit: Elevated PSA Nocturia Erectile dysfunction of organic origin Benign prostatic hyperplasia with lower urinary tract symptoms, symptom details unspecified Calculus of kidney All available PSA values reviewed, Options discussed. Questions answered. Pros and cons of prostate biopsy reviewed. Other options discussed. Questions answered MRI reviewed MRI Fusion Bx scheduled Cipro Rx given Diet changes for prostate health discussed and educational information given. Pros/Cons of prostatehealth supplements discussed. Treatment options for LUTS reviewed Continue Proscar Discussed timed voiding. Discussed fluid and caffeine intake Treatment options for ED reviewed-Observe Lifestyle change to help prevent UTIs discussed. Encouraged fluid intake. F/U MRI fusion Bx documented in this [facility] Work Phone: [phone] Note* Preprocedure Instructions - Sheyla Jimenez RN - 12/24/2023 10:54 AM EDT No outpatient medications have been marked as taking for the 12/29/23 encounter (Hospital Encounter). 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 male here for a Medicare Wellness visit. Past Medical, Surgical, and Family History reviewed and updated in chart. Reviewed all medications by prescribing practitioner or clinical pharmacist (such as prescriptions,OTCs, herbal therapies and supplements) and documented in the medical record. Chief Complaint Patient presents with Medicare Annual Wellness Visit Subsequent PT is here today for an AWV. Is having a prostate biopsy December 28. PSA keeps rising. They did an MRI on his prostate. This is not his first one. Would like to talk about medication. HPI Here for follow up. Hyponatremia continues despite reducing fluid consumption. Likely from hydrochlorothiazide then. Reducing the dose of hydrochlorothiazide to 12.5 from 25. Triamterene prescribed individually. DM2: Most recent A1C is normal. Has stopped taking metformin in the past due to muscle and back aches which improved with stopping metformin. Home BG checks are normal. Plan: Continue to monitor without medication. HTN: blood pressure is under control. No chest pain, palpitations, Shortness of breath or lightheadedness. Changing medications as discussed above. CVA: hx of CVA in December 2019. Was started on statin back then. Would like to reduce dose due to having muscle aches/joint aches. Will reduce dose and see if this improves his symptoms. BPH: PSA continues to increase. Has had biopsy recently which did not show any signs of cancer. Planning to perform another biopsy soon. Been managed by urology - Dr. Orona. Chronic condition: Right side back pain and sciatic pain. Pain has been present for the last 6 weeks. Usually improvessooner but this time his symptoms are lingering longer. Pain has gotten better now. (In the past had injection and inversion tables). Using inversion table now. Discussed test results with patient. Other labs overall in normal range. Cholesterol level are normal. Patient Care Team: Segundo Malloy MD MPH as PCP - General Babs Moreno DO as PCP - [employer] PCP Alli Orona MD as Surgeon (Urology) Review of Systems ROS negative except discussed above in HPI. Objective Vitals: BP 105/60 Pulse 65 Ht 1.676 m (5' 6) Wt 79.6 kg (175 lb 8 oz) SpO2 95% BMI 28.33 kg/m Physical Exam Constitutional: Appearance: Normal appearance. Cardiovascular: Rate and Rhythm: Normal rate and regular rhythm. Pulmonary: Effort: Pulmonary effort is normal. Breath sounds: Normal breath sounds. Neurological: Mental Status: He is alert. Assessment/Plan Problem List Items Addressed This Visit HTN (hypertension), benign Relevant Medications triamterene (Dyrenium) 50 mg capsule hydroCHLOROthiazide (Microzide) 12.5 mg tablet Other Relevant Orders Basic Metabolic Panel Other Visit Diagnoses Routine general medical examination at health care facility - Primary Follow up in 2 months. [facility] Phone: [phone]) 507-323806-05-2024 History of Present illness Narrative* Alli Orona MD - 12/09/2023 2:30 PM EDT Subjective Patient ID: Alli Thompson is a 73 y.o. male. HPI Patient is here for MRI results. MRI showed stable PI-RAD 4 lesion. . Hx of elevated PSA.. Most recent PSA was 11.06 (on Proscar) on 11/26. Prior PSA was 8.06 on 03/28 AND THIS WAS ON FINASTERIDE. . Prior PSA was 5.14 on 08/28.On Finasteride since 04/26. Prior PSA was 4.40 on 02/24. (He did stop finasteride on 10/25) . Prior PSA was 2.23 on 08/27. Prior PSA was 0.99 on 08/26. Negative Trus bx on 05/28. MRI bx on 11/25 was negative. . Hx of kidney stones. No recent sx. Denies flank pain. Denies N/V and F/C. Chronic BPH sx are mild and stable. SOme urgency and frequency. Denies dysuria. Denies hematuria. Nocturia 4-5x. He did recently start back on Finasteride. He has failed Uroxatral in the past. Ralph chronic. No medication for this Review of Systems Constitutional: Negative for chills and fever. HENT: Negative. Eyes: Negative. Respiratory: Negative for cough and shortness of breath. Cardiovascular: Negative for chest pain and leg swelling. Gastrointestinal: Negative for nausea. Endocrine: Negative. Genitourinary: Negative for difficulty urinating. Negative except for documented in HPI Allergic/Immunologic: Negative. Neurological: Alert & oriented X 3 Hematological: Denies blood thinners Psychiatric/Behavioral: Negative. Objective Physical Exam Vitals and nursing note reviewed. Pulmonary: Effort: Pulmonary effort is normal. Abdominal: Palpations: Abdomen is soft. Tenderness: There is no abdominal tenderness. Genitourinary: Comments: Kidneys non palpable bilaterally Bladder non palpable or tender Neurological: Mental Status: He is alert. Assessment/Plan Diagnoses and all orders for this visit: Elevated PSA Nocturia Erectile dysfunction of organic origin Benign prostatic hyperplasia with lower urinary tract symptoms, symptom details unspecified Calculus of kidney All available PSA values reviewed, Options discussed. Questions answered. Pros and cons of prostate biopsy reviewed. Other options discussed. Questions answered MRI reviewed MRI Fusion Bx scheduled Cipro Rx given Diet changes for prostate health discussed and educational information given. Pros/Cons of prostatehealth supplements discussed. Treatment options for LUTS reviewed Continue Proscar Discussed timed voiding. Discussed fluid and caffeine intake Treatment options for ED reviewed-Observe Lifestyle change to help prevent UTIs discussed. Encouraged fluid intake. F/U MRI fusion Bx [facility]: [phone] 196-516805-15-2024 History of Present illness Narrative* Alli Orona MD - 11/18/2023 8:30 AM EDT Subjective Patient ID: Alli Thompson is a 73 y.o. male. HPI Hx of elevated PSA.. Most recent PSA was 11.06 (on Proscar) on 11/26. Prior PSA was 8.06 on 03/28 ANDTHIS WAS ON FINASTERIDE. . Prior PSA was 5.14 on 08/28.On Finasteride since 04/26. Prior PSA was 4.40 on 02/24. (He did stop finasteride on 10/25) . Prior PSA was 2.23 on 08/27. Prior PSA was 0.99 on 08/26. Negative Trus bx on 05/28. MRI bx on 11/25 was negative. . Hx of kidney stones. No recent sx. Denies flank pain. Denies N/V and F/C. Chronic BPH sx are mild and stable. SOme urgency and frequency. Denies dysuria. Denies hematuria. Nocturia 4-5x. He did recently start back on Finasteride. He has failed Uroxatral in the past. ED is chronic. No medication for this Review of Systems Constitutional: Negative for chills and fever. HENT: Negative. Eyes: Negative. Respiratory: Negative for cough and shortness of breath. Cardiovascular: Negative for chest pain and leg swelling. Gastrointestinal: Negative for nausea. Endocrine: Negative. Genitourinary: Negative for difficulty urinating. Negative except for documented in HPI Allergic/Immunologic: Negative. Neurological: Alert & oriented X 3 Hematological: Denies blood thinners Psychiatric/Behavioral: Negative. Objective Physical Exam Vitals and nursing note reviewed. Constitutional: General: He is not in acute distress. Appearance: Normal appearance. Pulmonary: Effort: Pulmonary effort is normal. Abdominal: Tenderness: There is no abdominal tenderness. Genitourinary: Comments: Kidneys non palpable bilaterally. No tenderness Bladder non palpable or tender Scrotum no mass, No hydrocele Epididymis- No spermatocele. Non Tender. Testicles: No mass Urethra: No discharge Penis within normal limits... No lesions. circumcised Prostate - Asymmetric, RIGHT APICAL nodule Seminal Vesicals: No mass. Sphincter tone: normal Neurological: Mental Status: He is alert. Assessment/Plan Diagnoses and all orders for this visit: Elevated PSA Nocturia Erectile dysfunction of organic origin Benign prostatic hyperplasia with lower urinary tract symptoms, symptom details unspecified Calculus of kidney All available PSA values reviewed, Options discussed. Questions answered. MRI reviewed from 09/25 and new MRI ordered Pros and cons of prostate biopsy reviewed. Other options discussed. Questions answered Bx from past reviewed Diet changes for prostate health discussed and educational information given. Pros/Cons of prostatehealth supplements discussed. Treatment options for LUTS reviewed On Proscar Discussed timed voiding. Discussed fluid and caffeine intake Treatment options for ED reviewed. Lifestyle change to help prevent UTIs discussed. Encouraged fluid intake. F/U with prostate MRI documented in this [facility] Work Phone: [phone]) 123-322804-30-2024 Hospital Discharge instructions* Discharge Instructions* Tamra Fitzpatrick RN - 11/03/2023 2:35 PM EDT Patient Instructions after an endoscopy or colonoscopy The anesthetics, sedatives or narcotics which were given to you today will be acting in your body for the next 24 hours, so you might feel a little sleepy or groggy. This feeling should slowly wear off. Carefully read and follow the instructions. You received sedation today: - Do not drive or operate any machinery or power tools of any kind. - No alcoholic beverages today, not even beer or wine. - Do not make any important decisions or sign any legal documents. - No over the counter medications that contain alcohol or that may cause drowsiness. - Do not make any important decisions or sign any legal documents. While it is common to experience mild to moderate abdominal distention, gas, or belching after yourprocedure, if any of these symptoms occur following discharge from the GI Lab or within one week ofhaving your procedure, call the [facility] to be advised whether a visit to your nearest Urgent Care or Emergency Department is indicated. Take this paper with you if you go. - If you develop an allergic reaction to the medications that were given during your procedure suchas difficulty breathing, rash, hives, severe nausea, vomiting or lightheadedness.- If you experience chest pain, shortness of breath, severe abdominal pain, fevers and chills. -If you develop signs and symptoms of bleeding such as blood in your spit, if your stools turn black, tarry, or bloody - If you have not urinated within 8 hours following your procedure.- If your IV site becomes painful, red, inflamed, or looks infected. documented in this [facility] Work Phone: [phone]) [phone] History and physical note* Casimiro Courtney, DO - 11/03/2023 1:50 PM EDT History Of Present Illness Alli Thompson is a 73 y.o. male presenting with dysphagia, Alli was in the emergency room approximately 2 weeks ago with foreign body, he was eating carrots at the time and felt them lodged in his distal esophagus. Symptoms resolved while in ER with IV glucagon. He was referred for endoscopic given his persistent intermittent dysphagia to rule out structural problem with esophagus. He is in the preoperative area he denies any complaints at this time. Past Medical History Past Medical History: Diagnosis Date Arthritis Benign prostatic hyperplasia Diabetes mellitus (Multi) Elevated PSA Hypertension Stroke (Multi) Surgical History Past Surgical History: Procedure Laterality Date BACK SURGERY September 2017 CIRCUMCISION, PRIMARY HERNIA REPAIR November 2022 JOINT REPLACEMENT OTHER SURGICAL HISTORY 07/28/2019 Tonsillectomy OTHER SURGICAL HISTORY 07/28/2019 Hip replacement SPINE SURGERY TONSILLECTOMY WISDOM TOOTH EXTRACTION Social History He reports that he has never smoked. He has never used smokeless tobacco. He reports that he does not drink alcohol and does not use drugs. Family History Family History Problem Relation Name Age of Onset COPD Mother Savannah Thompson Other (cardiac pacemaker) Father Alli Thompson Heart attack Father Alli Thompson Arthritis Father Alli Thompson Cancer Father Alli Thompson Allergies No Known Allergies Review of Systems Pre-sedation Evaluation: ASA Classification - ASA 2 - Patient with mild systemic disease with no functional limitations Mallampati Score - II (hard and soft palate, upper portion of tonsils and uvula visible) Physical Exam Vitals and nursing note reviewed. Constitutional: Appearance: Normal appearance. HENT: Head: Normocephalic. Mouth/Throat: Mouth: Mucous membranes are moist. Pharynx: Oropharynx is clear. Eyes: Pupils: Pupils are equal, round, and reactive to light. Cardiovascular: Rate and Rhythm: Normal rate and regular rhythm. Heart sounds: Normal heart sounds. Pulmonary: Effort: Pulmonary effort is normal. Breath sounds: Normal breath sounds. Abdominal: General: Abdomen is flat. Bowel sounds are normal. Palpations: Abdomen is soft. Musculoskeletal: General: Normal range of motion. Cervical back: Normal range of motion and neck supple. Skin: General: Skin is warm and dry. Neurological: General: No focal deficit present. Mental Status: He is alert and oriented to person, place, and time. Psychiatric: Mood and Affect: Mood normal. Behavior: Behavior normal. Last Recorded Vitals Blood pressure 122/70, pulse 60, temperature 36.7 C (98.1 F), temperature source Temporal, resp. rate 14, height 1.676 m (5' 6), weight 79.8 kg (176 lb), SpO2 96%. 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 90 tablet 3 atorvastatin (Lipitor) 20 mg tablet Take 1 tablet (20 mg) by mouth once daily. 90 tablet 3 cyanocobalamin, vitamin B-12, 1,000 mcg tablet, sublingual Place 1 tablet (1,000 mcg) under the tongue once daily. finasteride (Proscar) 5 mg tablet Take 1 tablet (5 mg) by mouth once daily. Do not crush, chew, or split. FreeStyle Lite Strips strip TEST BLOOD SUGAR DAILY - FIRST THING IN THE MORNING BEFORE BREAKFAST 100 strip 3 lancets [facility] Check blood sugar every morning 100 each 3 lisinopril 40 mg tablet Take 1 tablet (40 mg) by mouth once daily. 90 tablet 3 multivitamin tablet Take 1 tablet by mouth once daily. triamterene-hydrochlorothiazid (Maxzide-25) 37.5-25 mg tablet Take 1 tablet by mouth once daily. 90tablet 3 aspirin 81 mg EC tablet Take 1 tablet (81 mg) by mouth once daily. No current facility-administered medications for this encounter. Casimiro Courtney DO [facility] Work Phone: [phone] History and physical note* Casimiro Courtney, DO - 11/03/2023 1:50 PM EDT History Of Present Illness Alli Thompson is a 73 y.o. male presenting with dysphagia, Alli was in the emergency room approximately 2 weeks ago with foreign body, he was eating carrots at the time and felt them lodged in his distal esophagus. Symptoms resolved while in ER with IV glucagon. He was referred for endoscopic given his persistent intermittent dysphagia to rule out structural problem with esophagus. He is in the preoperative area he denies any complaints at this time. Past Medical History Past Medical History: Diagnosis Date Arthritis Benign prostatic hyperplasia Diabetes mellitus (Multi) Elevated PSA Hypertension Stroke (Multi) Surgical History Past Surgical History: Procedure Laterality Date BACK SURGERY September 2017 CIRCUMCISION, PRIMARY HERNIA REPAIR November 2022 JOINT REPLACEMENT OTHER SURGICAL HISTORY 07/28/2019 Tonsillectomy OTHER SURGICAL HISTORY 07/28/2019 Hip replacement SPINE SURGERY TONSILLECTOMY WISDOM TOOTH EXTRACTION Social History He reports that he has never smoked. He has never used smokeless tobacco. He reports that he does not drink alcohol and does not use drugs. Family History Family History Problem Relation Name Age of Onset COPD Mother Savannah Thompson Other (cardiac pacemaker) Father Alli Thompson Heart attack Father Alli Thompson Arthritis Father Alli Thompson Cancer Father Alli Thompson Allergies No Known Allergies Review of Systems Pre-sedation Evaluation: ASA Classification - ASA 2 - Patient with mild systemic disease with no functional limitations Mallampati Score - II (hard and soft palate, upper portion of tonsils and uvula visible) Physical Exam Vitals and nursing note reviewed. Constitutional: Appearance: Normal appearance. HENT: Head: Normocephalic. Mouth/Throat: Mouth: Mucous membranes are moist. Pharynx: Oropharynx is clear. Eyes: Pupils: Pupils are equal, round, and reactive to light. Cardiovascular: Rate and Rhythm: Normal rate and regular rhythm. Heart sounds: Normal heart sounds. Pulmonary: Effort: Pulmonary effort is normal. Breath sounds: Normal breath sounds. Abdominal: General: Abdomen is flat. Bowel sounds are normal. Palpations: Abdomen is soft. Musculoskeletal: General: Normal range of motion. Cervical back: Normal range of motion and neck supple. Skin: General: Skin is warm and dry. Neurological: General: No focal deficit present. Mental Status: He is alert and oriented to person, place, and time. Psychiatric: Mood and Affect: Mood normal. Behavior: Behavior normal. Last Recorded Vitals Blood pressure 122/70, pulse 60, temperature 36.7 C (98.1 F), temperature source Temporal, resp. rate 14, height 1.676 m (5' 6), weight 79.8 kg (176 lb), SpO2 96%. 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 90 tablet 3 atorvastatin (Lipitor) 20 mg tablet Take 1 tablet (20 mg) by mouth once daily. 90 tablet 3 cyanocobalamin, vitamin B-12, 1,000 mcg tablet, sublingual Place 1 tablet (1,000 mcg) under the tongue once daily. finasteride (Proscar) 5 mg tablet Take 1 tablet (5 mg) by mouth once daily. Do not crush, chew, or split. FreeStyle Lite Strips strip TEST BLOOD SUGAR DAILY - FIRST THING IN THE MORNING BEFORE BREAKFAST 100 strip 3 lancets misc Check blood sugar every morning 100 each 3 lisinopril 40 mg tablet Take 1 tablet (40 mg) by mouth once daily. 90 tablet 3 multivitamin tablet Take 1 tablet by mouth once daily. triamterene-hydrochlorothiazid (Maxzide-25) 37.5-25 mg tablet Take 1 tablet by mouth once daily. 90tablet 3 aspirin 81 mg EC tablet Take 1 tablet (81 mg) by mouth once daily. No current facility-administered medications for this encounter. Casimiro Courtney DO [facility]: [phone]) [phone] History of Present illness Narrative* Chris Crane MD - 10/20/2023 8:30 AM EDT Subjective Patient ID: Alli Thompson is a 73 y.o. male who presents for Follow-up (ER for dizziness and fall, needs to see Gastro and Cardiology). HPI To ER last week. He was eating a carrot. That got stuck in esophagus. Then syncope. Had has light headedness in the past but not passing out. Says the problem with the food getting stuck has been fora year or so. 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 Only residual is numbness in right foot. Slight weakness in the foot. Diabetes no longer on medication and A1C has been very good..No Chest pain, Dyspnea, palpitations, numbness, weakness, claudications, or double vision/ loss of vision. The dysphagia occurs every few weeks. Carrots, tuna, dry crackers. No HB, melena, or hematochezia The lightheadedness usually occurs with the food sticking. This time he did pass out and fell. No sore spot on head but achy all over into the neck. He actually went to the ER the next day due to feeling dizzy and the headache CT of neck with no fracture CTA chest negative for PE. CT brain negative Troponin, sugar, CBC, CMP, Covid, Flu, UA all normal except for low sodium 132. Review of Systems Objective BP 134/62 (BP Location: Left arm, Patient Position: Sitting) Pulse 58 Ht 1.683 m (5' 6.25) Wt 82.6 kg (182 lb) SpO2 99% BMI 29.15 kg/m Physical Exam Vitals reviewed. Constitutional: General: He is not in acute distress. Appearance: Normal appearance. He is normal weight. HENT: Head: Normocephalic. Right Ear: Tympanic membrane, ear canal and external ear normal. Left Ear: Tympanic membrane, ear canal and external ear normal. Nose: Nose normal. Mouth/Throat: Mouth: Mucous membranes are moist. Pharynx: Oropharynx is clear. Eyes: Extraocular Movements: Extraocular movements intact. Conjunctiva/sclera: Conjunctivae normal. Pupils: Pupils are equal, round, and reactive to light. Neck: Vascular: No carotid bruit. Cardiovascular: Rate and Rhythm: Normal rate and regular rhythm. Pulses: Normal pulses. Heart sounds: Normal heart sounds. No murmur heard. Pulmonary: Effort: Pulmonary effort is normal. No respiratory distress. Breath sounds: Normal breath sounds. Abdominal: General: Abdomen is flat. Bowel sounds are normal. There is no distension. Palpations: Abdomen is soft. There is no mass. Tenderness: There is no abdominal tenderness. Musculoskeletal: Cervical back: Normal range of motion and neck supple. No tenderness. Lymphadenopathy: Cervical: No cervical adenopathy. Skin: General: Skin is warm and dry. Findings: No rash. Neurological: General: No focal deficit present. Mental Status: He is alert and oriented to person, place, and time. Cranial Nerves: Cranial nerves 2-12 are intact. Sensory: Sensation is intact. No sensory deficit. Motor: Weakness (mild right foot) present. Coordination: Coordination is intact. Deep Tendon Reflexes: Reflexes are normal and symmetric. Reflexes normal. Psychiatric: Mood and Affect: Mood normal. Thought Content: Thought content normal. Judgment: Judgment normal. Assessment/Plan Diagnoses and all orders for this visit: Vasovagal syncope Right hemiparesis (Multi) Type 2 diabetes mellitus with diabetic polyneuropathy, without long-term current use of insulin (Multi) Esophageal dysphagia - Referral to Gastroenterology; Future Do not see a need for cardiology consult suggested by ER. [facility] Work Phone: 1(668) 153-223504-01-2024 Instructions* Patient Instructions* Delilah Christian MD - 10/05/2023 9:49 AM EDT If you have any questions please contact our office at [phone]. After office hours or on the weekend, please call Dr. Christian on his cell phone at [phone]. [facility]24 NoteHNO ID: [id number] Author: DELILAH CHRISTIAN MD Service: ? Author Type: Physician Type: Progress Notes Filed: 10/05/2023 09:49 Note Text: ASSESSMENT/PLAN: 1. 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 Glaucoma suspect of both eyes - ICD9: 365.00, ICD10: H40.003 - Return in 6 weeks to repeat Visual field and Fundus photos - Monitor 3. Optic cupping of both eyes - ICD9: 377.14, ICD10: H47.233 - Monitor 3. Combined form of senile cataract of both eyes - ICD9: 366.19, ICD10: H25.813 - Not visually significant - Monitor 5. Type 2 diabetes mellitus without retinopathy (HCC) - ICD9: 250.00, ICD10: E11.9 - Please keep your blood sugar under good control to minimize risk of ocular complications from diabetes. - Continue to monitor with PCP 6. Essential hypertension - ICD9: 401.9, ICD10: I10 - Continue to monitor with PCP I have confirmed and edited as necessary the relevant HPI, ophthalmic history, ROS, and the neuro exam findings as obtained by others. I have seen and examined Alli Thompson. I have discussed the case and the management of this patient's care with the Resident/Fellow, if applicable. I also have reviewed and agree with the assessment and plan as stated above and agree with all of its relevant components.[facility]04-01-2024 History of Present illness Narrative* Delilah Christian MD - 10/05/2023 9:45 AM EDT ASSESSMENT/PLAN: 1. 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 Glaucoma suspect of both eyes - ICD9: 365.00, ICD10: H40.003 - Return in 6 weeks to repeat Visual field and Fundus photos - Monitor 3. Optic cupping of both eyes - ICD9: 377.14, ICD10: H47.233 - Monitor 3. Combined form of senile cataract of both eyes - ICD9: 366.19, ICD10: H25.813 - Not visually significant - Monitor 5. Type 2 diabetes mellitus without retinopathy (HCC) - ICD9: 250.00, ICD10: E11.9 - Please keep your blood sugar under good control to minimize risk of ocular complications from diabetes. - Continue to monitor with PCP 6. Essential hypertension - ICD9: 401.9, ICD10: I10 - Continue to monitor with PCP I have confirmed and edited as necessary the relevant HPI, ophthalmic history, ROS, and the neuro exam findings as obtained by others. I have seen and examined Alli Thompson. I have discussed the case and the management of this patient's care with the Resident/Fellow, if applicable. I also have reviewed and agree with the assessment and plan as stated above and agree withall of its relevant components. [facility] in this encounter[facility]03-06-[facility]24 Instructions* Patient Instructions* Max Mccann II, OD - 09/09/2023 11:24 AM EST Assessment and Plan H47.021 Optic nerve hemorrhage, right (primary encounter diagnosis) Comment: No improvement in appearance but no worse either. Recommend consult with Dr. Christian. H40.003 Glaucoma suspect of both eyes Comment: Monitor. E11.9 Type 2 diabetes mellitus without retinopathy (HCC) Comment: Monitor. H35.373 Epiretinal membrane, both eyes Comment: Monitor H25.813 Combined form of senile cataract of both eyes Comment: Slow progression both eyes. Patient will tolerate for now. Monitor. H52.13 Myopia of both eyes H52.223 Regular astigmatism of both eyes H52.4 Presbyopia Comment: Monitor for further shift in glasses power. I have confirmed and edited as necessary the relevant HPI, ophthalmic history, ROS, and the neuro exam findings as obtained by others. I have seen and examined Alli Thompson. I have discussed the case and the management of this patient's care with the Resident/Fellow, if applicable. I also have reviewed and agree with the assessment and plan as stated above and agree withall of its relevant components. [facility] in this [facility]03-06-2024 NoteHNO ID: [id number] Author: MAX MCCANN II, OD Service: ? Author Type: PRODUCT DELIVERY SPECIALIST Type: Progress Notes Filed: 09/09/2023 11:24 Note Text: Assessment and Plan H47.021 Optic nerve hemorrhage, right (primary encounter diagnosis) Comment: No improvement in appearance but no worse either. Recommend consult with Dr. Christian. H40.003 Glaucoma suspect of both eyes Comment: Monitor. E11.9 Type 2 diabetes mellitus without retinopathy (HCC) Comment: Monitor. H35.373 Epiretinal membrane, both eyes Comment: Monitor H25.813 Combined form of senile cataract of both eyes Comment: Slow progression both eyes. Patient will tolerate for now. Monitor. H52.13 Myopia of both eyes H52.223 Regular astigmatism of both eyes H52.4 Presbyopia Comment: Monitor for further shift in glasses power. I have confirmed and edited as necessary the relevant HPI, ophthalmic history, ROS, and the neuro exam findings as obtained by others. I have seen and examined Alli Thompson. I have discussed the case and the management of this patient's care with the Resident/Fellow, if applicable. I also have reviewed and agree with the assessment and plan as stated above and agree with all of its relevant components.[facility]03-06-2024 History of Present illness Narrative* Max Mccann II, OD - 09/09/2023 11:22 AM EST Assessment and Plan H47.021 Optic nerve hemorrhage, right (primary encounter diagnosis) Comment: No improvement in appearance but no worse either. Recommend consult with Dr. Christian. H40.003 Glaucoma suspect of both eyes Comment: Monitor. E11.9 Type 2 diabetes mellitus without retinopathy (HCC) Comment: Monitor. H35.373 Epiretinal membrane, both eyes Comment: Monitor H25.813 Combined form of senile cataract of both eyes Comment: Slow progression both eyes. Patient will tolerate for now. Monitor. H52.13 Myopia of both eyes H52.223 Regular astigmatism of both eyes H52.4 Presbyopia Comment: Monitor for further shift in glasses power. I have confirmed and edited as necessary the relevant HPI, ophthalmic history, ROS, and the neuro exam findings as obtained by others. I have seen and examined Alli Thompson. I have discussed the case and the management of this patient's care with the Resident/Fellow, if applicable. I also have reviewed and agree with the assessment and plan as stated above and agree withall of its relevant components. [facility] this [facility]11-15-[facility]23 History of Present illness Narrative* Alli Orona MD - 05/20/2023 9:15 AM EST Subjective Patient ID: Alli Thompson is a 72 y.o. male. HPI Patient is here for Trus results. Path report showed benign prostatic tissue with chronic inflammation. Hx of elevated PSA.. Most recent PSA was 8.06 on 03/28 AND THIS WAS ON FINASTERIDE. . Prior PSA was 5.14 on 08/28.On Finasteride since 04/26. Prior PSA was 4.40 on 02/24. (He did stop finasteride on10/25) . Prior PSA was 2.23 on 08/27. Prior PSA was 0.99 on 08/26. MRI bx on 11/25 was negative. . Hx of kidney stones. No recent sx. Denies flank pain. Denies N/V and F/C. Chronic BPH sx are mild and stable. SOme urgency and frequency. Denies dysuria. Denies hematuria. Nocturia 4-5x. He did recently start back on Finasteride. He was given Uroxatral last visit but D/C this due to not seeing improvement. ED is chronic. No medication for this. Review of Systems Constitutional: Negative for chills and fever. HENT: Negative. Eyes: Negative. Respiratory: Negative for cough and shortness of breath. Cardiovascular: Negative for chest pain and leg swelling. Gastrointestinal: Negative for nausea. Endocrine: Negative. Genitourinary: Negative for difficulty urinating. Negative except for documented in HPI Allergic/Immunologic: Negative. Neurological: Alert & oriented X 3 Hematological: Denies blood thinners Psychiatric/Behavioral: Negative. Objective Physical Exam Vitals and nursing note reviewed. Pulmonary: Effort: Pulmonary effort is normal. Breath sounds: Normal breath sounds. Abdominal: Palpations: Abdomen is soft. Tenderness: There is no abdominal tenderness. Genitourinary: Comments: Kidneys non palpable bilaterally Bladder non palpable or tender Neurological: Mental Status: He is alert. Assessment/Plan Diagnoses and all orders for this visit: Elevated PSA Nocturia Erectile dysfunction of organic origin Benign prostatic hyperplasia with lower urinary tract symptoms, symptom details unspecified Calculus of kidney All available PSA values reviewed, Options discussed. Questions answered. Bx x 2 reviewed MRI reviewed-Had negative Bx of RHIANNON Discussed repeat MRI Diet changes for prostate health discussed and educational information given. Pros/Cons of prostatehealth supplements discussed. Resume Theralogix Treatment options for LUTS reviewed Proscar Rx sent Discussed timed voiding. Discussed fluid and caffeine intake Treatment options for ED reviewed. Lifestyle change to help prevent UTIs discussed. Encouraged fluid intake. F/U with PSA 6 months documented in this [facility] Work Phone: 1(928) 539-268105-10-2023 Chief complaint Narrative - Reported* An interactive audio and video telecommunication system which permits real time communications between the patient (at the originating site) and provider (at the distant site) was utilized to providethis telehealth service. * Verbal consent was requested and obtained from ALLI THOMPSON on this date, 11/12/2022 09:15 AM , for a telehealth visit. * Prostate MRI bx results [facility] Work Phone: 1(860) 317-283205-03-2023 NotePost Operative Note: PreOp Diagnosis: Left inguinal hernia Post-Procedure Diagnosis: Left inguinal hernia Procedure: Open repair of left inguinal hernia with placement of mesh (Ant repair) Surgeon: Babs Padilla MD Resident/Fellow/Other Campaign Assistant: n/a Anesthesia: General Estimated Blood Loss (mL): 25cc Specimen: no Complications: None Findings: Large left inguinal hernia containing colon. Laxity to abdominal wall as well as abdominal soft tissues. Patient Returned To/Condition: PACU / Stable Operative Report Dictated: Dictation: not applicable - note contains Operative Report Operative Report: Indication: Patient is a 72-year-old male with a left inguinal hernia. This contains colon and is giving him intermittent partial obstructive symptoms. He lost about 90 lbs intentionally over the past year and has significant laxity to his tissues. Risks and benefits of repair were discussed and the patient was agreeable to surgery. Procedure: The patient was brought to the operating room, placed in supine position, and general anesthesia was induced. The patient was placed in slight Trendelenberg position. The pannus on his lower abdomen was taped cephalad. The patient's lower abdomen and groin were prepped and draped in the usual fashion. An oblique skin incision was made 2 fingerbreadths above the inguinal ligament. Dissection was carried down to the external oblique aponeurosis. This was actually initially a little challenging to identify as tissues were very attenuated and he had significant laxity to the subcutaneous tissue. The external oblique was opened with Metzenbaum scissors, extending through the external ring. External oblique flaps were mobilized bluntly. The cord structures were encircled with a jesus drain. The hernia sac was dissected free from the cord structures with division of cremasteric fibers. It was a large but thin hernia sac. He had alot of excess fatty tissue around the cord structures and cremasteric fibers, but no discrete cord lipoma. Once the sac was reduced, a slit polypropylene mesh was placed and secured to the periosteum of the pubic tubercle. This was further secured using 2-0 polypropylene suture in running fashion laterally along the shelving edge of the inguinal ligament, and in interrupted fashion medially along the conjoined tendon. The conjoined tendon was also fairly attenuated, but held suture. The internal ring was reconstructed by suturing the tails of the mesh together and this admitted the tip of a finger. Hemostasis was confirmed. The external oblique aponeurosis was closed using running 2-0 Vicryl suture, taking care to prevent nerve entrapment. Rivka's fascia was closed using interrupted 3-0 Vicryl. Skin was closed using 3-0 Vicryl deep dermal and running 4-0 Vicryl subcuticular suture. Steri-strips were placed. The patient tolerated the procedure well, was extubated and transferred to the PACU in stable condition. Electronic Signatures: Babs Padilla) (Signed 05-Nov-2022 11:36) Authored: Post Operative Note, Note Completion Last Updated: 05-Nov-2022 11:36 by Babs Padilla)[facility] 11-05-2022 NoteHistory & Physical Reviewed: I have reviewed the History and Physical dated: 09-Oct-2022 History and Physical reviewed and relevant findings noted. Patient examined to review pertinent physical findings.: No significant changes Home Medications Reviewed: no changes noted Allergies Reviewed: no changes noted ERAS (Enhanced Recovery After Surgery): ERAS Patient: no Consent: COVID-19 Consent: COVID-19 Risk ConsentSurgeon has reviewed mayberry risks related to the risk of charly COVID-19 and if they contract COVID-19 what the risks are. Electronic Signatures: Babs Padilla) (Signed 05-Nov-2022 06:21) Authored: History & Physical Reviewed, ERAS, Consent, Note Completion Last Updated: 05-Nov-2022 06:21 by Babs Padilla)[facility] 10-21-2022 NotePROCEDURE DETAILS Preoperative Diagnosis: Elevated PSA, R97.20 Postoperative Diagnosis: Elevated PSA, R97.20 Surgeon: Alli Orona Resident/Fellow/Other Campaign Assistant: None of these were associated with this case Procedure: 1. PROSTATE NEEDLE BX Anesthesia: No anesthesiologist associated with this case Estimated Blood Loss: 0 Findings: see op note Specimens(s) Collected: yes, Operative Report: Pre Op dx: Elevated PSA and Abnormal MRI of the prostate Post Op Dx: SAME Procedure: MRI Guided Fusion Bx of the prostate Physician: ADWOA Anesthesia: MAC Estimated Blood Loss: Minimal Complications: NONE Indications and Consent: Patient present for prostate Biopsy of lesion found on MRI. After the risks,, benefits, and indications were explained he consented to the procedure. PROCEDURE: After adequate sedation was obtained the ultrasound probe was inserted into the rectum. An ultrasound sweep of the prostate was performed. These images were then fused with the previously obtained MRI images. The lesion(s) were identified. Multiple targeted biopsies were obtained . I also performed standard Sextant biopsies of the right and left lobe of the prostate. The patient tolerated the procedure well. Attestation: Note Completion: Attending AttestationI performed the procedure without a resident Electronic Signatures: Alli Orona) (Signed 21-Oct-2022 08:17) Authored: Post-Operative Note, Chart Review, Note Completion Last Updated: 21-Oct-2022 08:17 by Alli Orona)[facility] 10-21-2022 NoteHistory & Physical Reviewed: I have reviewed the History and Physical dated: 08-Oct-2022 History and Physical reviewed and relevant findings noted. Patient examined to review pertinent physical findings.: No significant changes Home Medications Reviewed: no changes noted Allergies Reviewed: no changes noted ERAS (Enhanced Recovery After Surgery): ERAS Patient: no Consent: COVID-19 Consent: COVID-19 Risk ConsentSurgeon has reviewed mayberry risks related to the risk of charly COVID-19 and if they contract COVID-19 what the risks are. Electronic Signatures: Alli Orona) (Signed 21-Oct-2022 07:26) Authored: History & Physical Reviewed, ERAS, Consent, Note Completion Last Updated: 21-Oct-2022 07:26 by Alli Orona)[facility] 10-21-2022 Miscellaneous Notes* Op Note - Alli Orona MD - 10/21/2022 8:16 AM EDT PROCEDURE DETAILS Preoperative Diagnosis: Elevated PSA, R97.20 Postoperative Diagnosis: Elevated PSA, R97.20 Surgeon: Alli Orona Resident/Fellow/Other Campaign Assistant: None of these were associated with this case Procedure: 1. PROSTATE NEEDLE BX Anesthesia: No anesthesiologist associated with this case Estimated Blood Loss: 0 Findings: see op note Specimens(s) Collected: yes, Operative Report: Pre Op dx: Elevated PSA and Abnormal MRI of the prostate Post Op Dx: SAME Procedure: MRI Guided Fusion Bx of the prostate Physician: ADWOA Anesthesia: MAC Estimated Blood Loss: Minimal Complications: NONE Indications and Consent: Patient present for prostate Biopsy of lesion found on MRI. After the risks,, benefits, and indications were explained he consented to the procedure. PROCEDURE: After adequate sedation was obtained the ultrasound probe was inserted into the rectum. An ultrasound sweep of the prostate was performed. These images were then fused with the previously obtained MRI images. The lesion(s) were identified. Multiple targeted biopsies were obtained . I also performed standard Sextant biopsies of the right and left lobe of the prostate. The patient tolerated the procedure well. Attestation: Note Completion: Attending Attestation I performed the procedure without a resident Electronic Signatures: Alli Orona) (Signed 21-Oct-2022 08:17) Authored: Post-Operative Note, Chart Review, Note Completion Last Updated: 21-Oct-2022 08:17 by Alli Orona) documented in this [facility] Work Phone: 1(600) 555-192804-18-2023 Note* Op Note - Alli Orona MD - 10/21/2022 8:16 AM EDT PROCEDURE DETAILS Preoperative Diagnosis: Elevated PSA, R97.20 Postoperative Diagnosis: Elevated PSA, R97.20 Surgeon: Alli Orona Resident/Fellow/Other Campaign Assistant: None of these were associated with this case Procedure: 1. PROSTATE NEEDLE BX Anesthesia: No anesthesiologist associated with this case Estimated Blood Loss: 0 Findings: see op note Specimens(s) Collected: yes, Operative Report: Pre Op dx: Elevated PSA and Abnormal MRI of the prostate Post Op Dx: SAME Procedure: MRI Guided Fusion Bx of the prostate Physician: ADWOA Anesthesia: MAC Estimated Blood Loss: Minimal Complications: NONE Indications and Consent: Patient present for prostate Biopsy of lesion found on MRI. After the risks,, benefits, and indications were explained he consented to the procedure. PROCEDURE: After adequate sedation was obtained the ultrasound probe was inserted into the rectum. An ultrasound sweep of the prostate was performed. These images were then fused with the previously obtained MRI images. The lesion(s) were identified. Multiple targeted biopsies were obtained . I also performed standard Sextant biopsies of the right and left lobe of the prostate. The patient tolerated the procedure well. Attestation: Note Completion: Attending Attestation I performed the procedure without a resident Electronic Signatures: Alli Orona) (Signed 21-Oct-2022 08:17) Authored: Post-Operative Note, Chart Review, Note Completion Last Updated: 21-Oct-2022 08:17 by Alli Orona) [facility] Work Phone: 1(684) 869-107704-18-2023 History and physical note* Alli Orona MD - 10/21/2022 7:25 AM EDT History & Physical Reviewed: I have reviewed the History and Physical dated: 08-Oct-2022 History and Physical reviewed and relevant findings noted. Patient examined to review pertinent physical findings.: No significant changes Home Medications Reviewed: no changes noted Allergies Reviewed: no changes noted ERAS (Enhanced Recovery After Surgery): ERAS Patient: no Consent: COVID-19 Consent: COVID-19 Risk Consent Surgeon has reviewed mayberry risks related to the risk of charly COVID-19 and if they contract COVID-19 what the risks are. Electronic Signatures: Alli Orona) (Signed 21-Oct-2022 07:26) Authored: History & Physical Reviewed, ERAS, Consent, Note Completion Last Updated: 21-Oct-2022 07: by Alli Orona) [facility] Work Phone: 1([phone]) 111-706704-18-2023 History and physical note* Alli Orona MD - 10/21/2022 7:25 AM EDT History & Physical Reviewed: I have reviewed the History and Physical dated: 08-Oct-2022 History and Physical reviewed and relevant findings noted. Patient examined to review pertinent physical findings.: No significant changes Home Medications Reviewed: no changes noted Allergies Reviewed: no changes noted ERAS (Enhanced Recovery After Surgery): ERAS Patient: no Consent: COVID-19 Consent: COVID-19 Risk Consent Surgeon has reviewed mayberry risks related to the risk of charly COVID-19 and if they contract COVID-19 what the risks are. Electronic Signatures: Alli Orona) (Signed 21-Oct-2022 07:26) Authored: History & Physical Reviewed, ERAS, Consent, Note Completion Last Updated: 21-Oct-2022 07:26 by Alli Orona) [facility] Work Phone: 1(755) [phone] NoteTherapy Diagnosis Assessed Pain (780.96) (R52) Transient right leg weakness (729.89) (R29.898) Plan Goals: Goals set and discussed today. LTG's: 1) Improve LE strength from 4/5 to >= 5-/5 throughout in order to facilitate safe gait and mobility. 4-6 wks 10/15/2022, MET, B/L LE strength 5-/5 throughout 2) Improve Static/Dynamic Standing balance to >= Good (-) against perturbations and reaching outside REJI in order to improve safety with mobility. 4-6 wks 10/15/2022, MET, Static/dynamic standing balance Good (-) 3) Improve Carranza Balance Test score from a 47 to >= 52/56 in order to improve safety with mobility. 4-6 wks 10/15/2022, MET, pt scored a 54/56 on Carranza Balance test at [facility] 4) Improve LFES score by >= 5 points in order to improve QOL. 4-6 wks 10/15/2022, MET, pt improved score from a 43 to a 52 at [facility] 5) Pt will be able to walk longer distances, negotiate stairs and return to exercise, and work around the home without significant limitation. 4-6 wks 10/15/2022, MET, pt can do the above activity but is cautious with them. Pt reports that he did some[employer] lawn work the other day and felt good doing so. ST) Pt/caregiver will be I and consistent with HEP with use of handout as needed in order to maximize strength and flexibility. 2-3 wks 10/15/2022, MET, pt is I with current HEP and has handouts. Planned interventions include: education/instruction, home program, neuromuscular re-education and therapeutic exercises. Frequency and duration: No further visits planned. Potential to achieve rehab goals is good 10/15/2022 PT DC Summary: The pt has made good objective progress in PT with improved b/l LE strength and balance. The pt has MET all of his PT goals and is I with current HEP. DC PT at this time. Discharge patient: Achieved all and/or the most significant goal(s). Assessment The pt has made good objective progress in PT with improved b/l LE strength and balance. The pt hasMET all of his PT goals and is I with current HEP. DC PT at this time. Response to treatment: improved strength and improved balance. Adult Risk Screening There are no spiritual/cultural practices/values/needs that are important to know Initial Fall Risk Screening: ALLI has not fallen in the last 6 months. His fall did not result in injury. ALLI does not have a fear of falling. He does not need assistance with sitting, standing or walking. Does not need assistance walking in his home. He does not need assistance in an unfamiliar setting. The patient is not using an assistive device. Fall Risk Screening: Patient is identified as a fall risk. Care Plan: Low Risk: Environmental for all patients and low risk patients: Offer assistance as needed or requested, keep environment free of obstacles, keep floor clean and dry, keep room lighting, wheelchair brakes on, bed/ stretcher locked and in low position if applicable, non-slip footwear if applicable, walker/cane available if needed, side rails up if applicable and pre-emptive toileting. Pain Scale: On a scale of 0 to 10, the patient rates the pain at 0. Please identify location of pain: R LE Pain is not a major issue for pt. Pain Quality: aching. The pain makes it hard for the patient to do these things: walking, exercise and house work. Living Will. Living Will: Living will on file. Healthcare POA: Health care proxy on file. Declaration of Mental Health Treatment: No mental health treatment on file. Depression/Suicide Screening: During the past 2 weeks, the patient has not felt down, depressed or hopeless. During the past 2 weeks, the patient has not felt little interest or pleasure in doing things. Insurance Insurance reviewed Visit number: 9 Subjective Patient reports:. Pt reports that he is doing well and that PT has helped with overall LE strength and balance. Pt Akash with HEP and reports that he will continue with his ex's after DC today. Home program performing as directed: Yes. Precautions: Fall Risk: low PMH: DM, Stroke, HTN, migraines, B/l THR, lumbar spine fusion. Treatment Time in clinic started at 9:00 am Time in clinic ended at 8:25 am Total time in clinic is 25 minutes. Total timed code time is 24 minutes. Therapeutic exercise (74804): timed minutes 24, units 2 . Stepper, Lv 1.5, x7 mins Slant Board x2 30 ea B Standing Heel raises on step 2 x 15 reps Anterior and Lateral Step ups, 6 2 x 10 ea B Standing Hip Abduction x 20 4# ea B X Standing Hip Flexion x 20 4# ea B, marches X Standing Hip extension x 20 4# ea B X Standing HS Curls x 20 4# ea B X Mini Squats 2 x10 reps BOSU Lunges x 20 reps ea leg X SLS on airex in // bars 3 x 10 sec hold ea leg X Shuttle Leg Press 2 x 10 reps B/L / U/L 65#/40# X Sports Cord 1 cord Fwd/Backward only x 5 reps ea (spot closely) X //bars: X today tandem gait x2 laps side steps x2 laps PT DC Summary Completed Today. DC to HEP: Seated marches 2 x 10 X Seated hip abd blue band 2 x (more content not included)... [facility] 09-12-2022 History of Present illness Narrative* Segundo Malloy MD MPH - 09/12/2022 9:20 AM EST Subjective Reason for Visit: Alli Thompson is an 72 y.o. male here for a Medicare Wellness visit. Past Medical, Surgical, and Family History reviewed and updated in chart. HPI HTN: Reports weakness and pain in lower extremities. Requesting PT referral. Ordered PT. GERD: Stable at this time Diabetes mellitus: Patient reports that he has been watching his diet and has been working on beingphysically active. denies polyuria, polydipsia or blurry vision. He has been taking metformin 500 mg twice daily instead of 1000 mg twice daily. Plan: A1C stable. Continue current regimen. HTN: BP elevated in the clinic today. However, home BP is normal per patient report. Hydrochlorothiazide was prescribed but patient was not able to tolerate that. Also it has been challenging for himto cut the 10 mg amlodipine tablet. So he has been taking it every other day. Plan: BP still elevated. Increase Amlodipine to daily. Recommended to check BP at home. Continue lisinopril. Stroke: Mostly recovered well. His right lower extremity is strong now . his memory is at baseline as well. Obesity: loosing weight with diet management. Has lost about 60 lbs. He is happy about this. he will continue to work on this. This is likely helping his diabetes as well. Discussed results with patient. Normal cholesterol levels, electrolytes, liver and kidney function. Patient Care Team: Segundo Malloy MD MPH as PCP - General Segundo Malloy MD MPH as PCP - tna Medicare Advantage PCP Review of Systems Objective Vitals: BP (!) 158/94 (BP Location: Left arm, Patient Position: Sitting) Pulse 69 Ht 1.702 m (5' 7) Wt 85.1 kg (187 lb 11.2 oz) SpO2 99% BMI 29.40 kg/m Physical Exam Assessment/Plan Problem List Items Addressed This Visit Circulatory HTN (hypertension), benign - Primary Relevant Medications amLODIPine (Norvasc) 5 mg tablet lisinopril 40 mg tablet Endocrine/Metabolic DM2 (diabetes mellitus, type 2) (CMS/HCC) Relevant Medications metFORMIN (Glucophage) 500 mg tablet Other Relevant Orders Albumin, urine, random Hemoglobin A1C Vitamin B12 deficiency Relevant Orders Vitamin B12 Other Visit Diagnoses Pain Relevant Orders PT eval and treat Weakness of right lower extremity Relevant Orders PT eval and treat Follow up in 3 months. documented in this [facility] Work Phone: [phone]) [phone] History of Present illness NarrativePatient is here for prostate MRI results. MRI showed PI-RAD 4 lesion..Most recent PSA was 5.14 on 08/28.On Finasteride since 04/26. Prior PSA was 4.40 on 02/24. (He did stop finasteride on 10/25) . Prior PSA was 2.23 on 08/27. Prior PSA was 0.99 on 08/26. Hx of kidney stones. No recent sx. Denies flank pain. Denies N/V and F/C. Chronic BPH sx are mild and stable. SOme urgency and frequency. Denies dysuria. Denies hematuria. Nocturia x4-5. He did recently start back on Finasteride. He was given Uroxatral last visit but D/C this due to not seeing improvement. ED is chronic. No medication for this.[facility] Work Phone: [phone] History of Present illness NarrativePatient is here for elevated PSA and groin discomfort since April... He feels there is a bulge inhis left groin that goes down when he lies down or pushes on it. . Most recent PSA was 5.14 on 08/28.On Finasteride since 04/26. Prior PSA was 4.40 on 02/24. (He did stop finasteride on 10/25) . Prior PSA was 2.23 on 08/27. Prior PSA was 0.99 on 08/26. Hx of kidney stones. No recent sx. Denies flank pain. Denies N/V and F/C. Chronic BPH sx are mild and stable. SOme urgency and frequency. Denies dysuria. Denies hematuria. Nocturia x4-5. He did recently start back on Finasteride. He was given Uroxatral last visit but D/C this due to not seeing improvement. ED is chronic. No medication for this.[facility] Work Phone: [phone]) [phone] History of Present illness NarrativePatient is here for prostate MRi bx results. Path report showed benign prostatic tissue. Most recent PSA was 5.14 on 08/28.On Finasteride since 04/26. Prior PSA was 4.40 on 02/24. (He did stop finasteride on 10/25) . Prior PSA was 2.23 on 08/27. Prior PSA was 0.99 on 08/26. Hx of kidney stones. No recent sx. Denies flank pain. Denies N/V and F/C. Chronic BPH sx are mild and stable. SOme urgency and frequency. Denies dysuria. Denies hematuria. Nocturia x4-5. He did recently start back on Finasteride.He was given Uroxatral last visit but D/C this due to not seeing improvement. ED is chronic. No medication for this. [facility] Work Phone: [phone] Instructions* Patient Instructions* Max Mccann II, OD - 06/03/2022 2:24 PM EST Assessment and Plan E11.9 Type 2 diabetes mellitus without retinopathy (HCC) (primary encounter diagnosis) Comment: Examination shows no ocular diabetic complications today. Discussed need for optimal diabetes control to minimize chance of ocular complications. Advise patient to immediately report worsening in status or additional symptoms. Continue yearly dilated eye examinations. H40.003 Glaucoma suspect of both eyes Comment: Testing stable today. Continue observation yearly. H35.373 Epiretinal membrane, both eyes Comment: Stable. Monitor for progression. Instruct patient to immediately report any change in condition outside of expected and discussed symptoms. H25.813 Combined form of senile cataract of both eyes Comment: Slow progression both eyes. Monitor yearly. H52.13 Myopia of both eyes H52.223 Regular astigmatism of both eyes H52.4 Presbyopia Comment: Shift in glasses power. Update glasses to maximize visual performance. I have confirmed and edited as necessary the relevant ophthalmic history, ROS, and the neuro exam findings as obtained by others. I have seen and examined Alli Thompson. I have discussed the case and the management of this patient's care with the Resident/Fellow, if applicable. I also have reviewed and agree with the assessment and plan as stated above and agree withall of its relevant components. Max Mccann II, OD [facility] History of Present illness Narrative* Max Mccann II, OD - 06/03/2022 2:22 PM EST Assessment and Plan E11.9 Type 2 diabetes mellitus without retinopathy (HCC) (primary encounter diagnosis) Comment: Examination shows no ocular diabetic complications today. Discussed need for optimal diabetes control to minimize chance of ocular complications. Advise patient to immediately report worsening in status or additional symptoms. Continue yearly dilated eye examinations. H40.003 Glaucoma suspect of both eyes Comment: Testing stable today. Continue observation yearly. H35.373 Epiretinal membrane, both eyes Comment: Stable. Monitor for progression. Instruct patient to immediately report any change in condition outside of expected and discussed symptoms. H25.813 Combined form of senile cataract of both eyes Comment: Slow progression both eyes. Monitor yearly. H52.13 Myopia of both eyes H52.223 Regular astigmatism of both eyes H52.4 Presbyopia Comment: Shift in glasses power. Update glasses to maximize visual performance. I have confirmed and edited as necessary the relevant ophthalmic history, ROS, and the neuro exam findings as obtained by others. I have seen and examined Alli Thompson. I have discussed the case and the management of this patient's care with the Resident/Fellow, if applicable. I also have reviewed and agree with the assessment and plan as stated above and agree withall of its relevant components. Max Mccann II, OD [facility] History of Present illness Narrative* Patient is here for med check. * Suprapubic pain and tenderness: Started about 3 weeks ago. Has intermittent pain. Started after excessive stretch while working. Initially had a bruise. Bruise has resolved. Pain continued to persist. * Plan: Appears to be muscular in nature. Recommended conservative measures for now. If worsening then consider further evaluation. * GERD: Reports that GERD used to be intermittent in the past. More frequent episodes now. * Plan: Discussed about conservative measures including dietary changes. Can use Prilosec if symptomsare not improving. * Diabetes mellitus: Patient reports that he has been watching his diet and has been working on beingphysically active. denies polyuria, polydipsia or blurry vision. He has been taking metformin 500 mg twice daily instead of 1000 mg twice daily. * Plan: A1C has signficantly improved now with A1C at 6.1 down from 6.8. Continue current regimen fornow. * HTN: BP elevated in the clinic today. However, home BP is normal per patient report. He reports that his his urinary frequency has been worse lately. He has taken finasteride in the past. However he has taken a break in the middle. Now he is taking it again as his PSA levels are increasing and his urinary frequency has been worse. Is wondering if hydrochlorothiazide is contributing to the urinaryfrequency. Also it has been challenging for him to cut the 10 mg amlodipine tablet. So he has been taking it every other day. * Plan: Given that there is a possibility of hydrochlorothiazide contributing to the urinary frequency we will discontinue hydrochlorothiazide part of his medication. We will continue with triamterene.If insurance issues occur then will go back to his previous regimen. Prescribing 5 mg amlodipine tablets so that he can take it every day. * Stroke: Mostly recovered well. His right lower extremity is strong now . his memory is at baseline as well. * Obesity: loosing weight with diet management. Has lost about 60 lbs. He is happy about this. he will continue to work on this. This is likely helping his diabetes as well. * Discussed results with patient. Normal cholesterol levels, electrolytes, liver and kidney function. * Follow up in 6 months, with labs before appointment. -[facility] Work Phone: [phone] 691-121110-01-2022 History of Present illness NarrativePatient is here for elevated PSA and groin discomfort since April... He feels there is a bulge inhis left groin that goes down when he lies down or pushes on it. . Most recent PSA was 5.14 on 08/28.On Finasteride since 04/26. Prior PSA was 4.40 on 02/24. (He did stop finasteride on 10/25) . Prior PSA was 2.23 on 08/27. Prior PSA was 0.99 on 08/26. Hx of kidney stones. No recent sx. Denies flank pain. Denies N/V and F/C. Chronic BPH sx are mild and stable. SOme urgency and frequency. Denies dysuria. Denies hematuria. Nocturia x4-5. He did recently start back on Finasteride. He was given Uroxatral last visit but D/C this due to not seeing improvement. ED is chronic. No medication for this. [facility] Work Phone: [phone] History of Present illness Narrative* Patient is here for med check. * Diabetes mellitus: Patient reports that he has been watching his diet and has been working on beingphysically active. denies polyuria, polydipsia or blurry vision. He has been taking metformin 500 mg twice daily instead of 1000 mg twice daily. * Plan: A1C has signficantly improved now with A1C at 6.1 down from 6.8. Continue current regimen fornow. * HTN: BP elevated in the clinic today. However, home BP is normal per patient report. He reports that his his urinary frequency has been worse lately. He has taken finasteride in the past. However he has taken a break in the middle. Now he is taking it again as his PSA levels are increasing and his urinary frequency has been worse. Is wondering if hydrochlorothiazide is contributing to the urinaryfrequency. Also it has been challenging for him to cut the 10 mg amlodipine tablet. So he has been taking it every other day. * Plan: Given that there is a possibility of hydrochlorothiazide contributing to the urinary frequency we will discontinue hydrochlorothiazide part of his medication. We will continue with triamterene.If insurance issues occur then will go back to his previous regimen. Prescribing 5 mg amlodipine tablets so that he can take it every day. * Stroke: Mostly recovered well. His right lower extremity is strong now . his memory is at baseline as well. * Obesity: loosing weight with diet management. Has lost about 60 lbs. He is happy about this. he will continue to work on this. This is likely helping his diabetes as well. * Discussed results with patient. Normal cholesterol levels, electrolytes, liver and kidney function. * Follow up in 3 months, with labs before appointment. [facility] Work Phone: [phone]) [phone] History of Present illness Narrative* Patient is here for elevated PSA. Most recent PSA was 4.40 on 02/24. (He did stop finasteride on 10/25) . Prior PSA was 2.23 on 08/27. Prior PSA was 0.99 on 08/26. Hx of kidney stones. No recent sx. Denies flank pain. Denies N/V and F/C. Chronic BPH sx are mild and stable. Denies urgency and frequency.Denies dysuria. Denies hematuria. Nocturia x1. He did recently start back on Finasteride. He was given Uroxatral last visit but D/C this due to not seeing improvement. * ED is chronic. No medication for this. [facility] Work Phone: [phone]) [phone] History of Present illness Narrative* Patient is here for elevated PSA. Most recent PSA was 4.40 on 02/24. (He did stop finasteride on 10/25) . Prior PSA was 2.23 on 08/27. Prior PSA was 0.99 on 08/26. Hx of kidney stones. No recent sx. Denies flank pain. Denies N/V and F/C. Chronic BPH sx are mild and stable. Denies urgency and frequency.Denies dysuria. Denies hematuria. Nocturia x1. He did recently start back on Finasteride. He was given Uroxatral last visit but D/C this due to not seeing improvement. * ED is chronic. No medication for this. [facility] Work Phone: [phone]) [phone] Chief complaint Narrative - Reported* An interactive audio and video telecommunication system which permits real time communications between the patient (at the originating site) and provider (at the distant site) was utilized to providethis telehealth service. * Verbal consent was requested and obtained from ALLI SAWANTAMBERLY on this date, 10/30/2021 08:45 AM , for a telehealth visit. * 3 week f/u w/ kub and med check [facility] Work Phone: [phone] History of Present illness NarrativePatient is here for yearly f/u. Patient has a for Hx of Kidney Stones...No recent Sx for 15 years....Denies flank pain...Denies N/V and F/C....Most recent PSA was 2.23 on 08/27. Prior PSA was 0.99 on 08/26, prior was a 0.63 on 08/2019....Prior PSA was 0.47 on 08/2018...Chronic BPH sx are mild and stable. Some urgency and frequency...weak stream...Patient has CIC a couple of times because he didn't th ink he was emptying all the way. Some hesitancy....No dysuria...some hematuria...Nocturia 1-2x...caffeine does worsen sx...Pt. is taking Finasteride.. ED is chronic. No medication for this.[facility] Work Phone: [phone]) [phone] History of Present illness NarrativePatient is here for 3 week f/u w/ KUB. Patient has hx of kidney stones. No recent sx for over 15 years. Denies flank pain. Denies N/V and F/C. Patient was also recently started on Uroxatral. He states. He was also taking finasteride but recently stopped. Most recent PSA was 2.23 on 08/27. Prior PSA was 0.99 on 08/26. .Patient has done CIC a couple of times in the past because he didn't think he wasemptying all the way. ED is chronic. No medication for this. [facility] Work Phone: [phone] History of Present illness Narrative* Patient is here for follow-up regarding diabetes mellitus. * Diabetes mellitus: Patient reports that his blood glucose levels have been better control before hecontracted Covid infection early July(about 2 months ago). Since then his blood glucose levels have been elevated. Prior to that he has lost some weight however since then he has gained some weight. Reports that lately his blood glucose levels have been returning to his pre- COVID infection levels. Mostly noticing fasting blood glucose levels at 140. He is taking Metformin 1000 mg twice daily. He is also more trying to lose weight that he has gained after his stroke. he has been able to consistently loosing weight. patient would like to continue to work on by himself. patient does not want to change regimen at this time. Discussed about the treatment options including adding glipizide. Patient would like to continue to monitor for now. Discussed about the potential risk with high blood glucose levels. Patient expressed understanding. * Stroke: Mostly recovered well. His right lower extremity is strong now . his memory is at baseline as well. * Reports that he has noticed bilateral lower extremity edema lately. Denies any injury, pain, inflammation. He has not been as active as before. He will resume activity and see if this improves his symptoms. Denies orthopnea, shortness of breath. * Also has arthritic pain in upper and lower extremities which makes it difficult to exercise. * Has been having severe low back pain with radiation to the left gluteal region. * Has had diagnosis of right carpel tunnel syndrome for which there was discussion of surgery, but hedid not go through with that. Now the left hand bothers him in the dorsal surface of the thumb region. has been using carpel tunnel brace, which helps a little. 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 * Follow up in 3 months, with labs before appointment. -[facility] Work Phone: [phone] History of Present illness Narrative* Diabetes mellitus: Patient reports that he continues to notice occasionally his blood glucose levels can be as high as 160s. However he noticed that if he had sugar the day prior he can have a bettersugar reading than next day morning. He is taking Metformin 1000 mg twice daily. He is also more trying to lose weight that he has gained after his stroke. He has been able to lose 6 pounds since . * Stroke: Still recovering - has mild numbness in the right lower extremity down from the knee. * Also has arthritic pain in upper and lower extremities which makes it difficult to exercise. -[facility] Work Phone: [phone] History of Present illness NarrativeThe patient presents with yearly f/u w/ KUB/PSA. Patient has a for Hx of Kidney Stones...No recent Sx for 15 years....Denies flank pain...Denies N/V and F/C....Most recent PSA was 0.99 on 08/26, prior was a 0.63 on 08/2019....Prior PSA was 0.47 on 08/2018...Chronic BPH sx are mild and stable. Some urgency and frequency...weak stream...Patient has CIC a couple of times because he didn't think he wasemptying all the way. Some hesitancy....No dysuria...some hematuria...Nocturia 1-2x...caffeine doesworsen sx...Pt. is taking Finasteride.. ED is chronic. No medication for this. Patient has had 2 UTI's this past year. 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, unspecified Epiretinal membrane, both eyes Macular puckering of retina Combined form of senile cataract of both eyes Myopia of both eyes Myopia Regular astigmatism of both eyes Regular astigmatism Presbyopia [facility] Diagnosis Elevated PSA Elevated prostate specific antigen (PSA) Nocturia 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 Benign prostatic hyperplasia with lower urinary tract symptoms, symptom details unspecified Calculus of kidney documented in this encounter [facility] Work Phone: Evaluation note* Diagnosis Elevated prostate specific antigen (PSA) Essential (primary) hypertension Unspecified essential hypertension Personal history of transient ischemic attack (TIA), and cerebral infarction without residual deficits Migraine, unspecified, not intractable, without status migrainosus Type 2 diabetes mellitus without complications (CMS/HCC) Benign prostatic hyperplasia without lower urinary tract symptoms Presence of unspecified artificial hip joint 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 (nsaid) 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 Pure hypercholesterolemia, unspecified documented in this encounter [facility] Work Phone: [phone] note* Diagnosis Optic nerve hemorrhage, 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, unspecified Type 2 diabetes mellitus without retinopathy (HCC) Type II or unspecified type diabetes mellitus without mention of complication, not stated as uncontrolled Epiretinal membrane, both eyes Macular puckering of retina Combined form of senile cataract of both eyes Myopia of both eyes Myopia Regular astigmatism of both eyes Regular astigmatism Presbyopia [facility] Diagnosis 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- Primary 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, unspecified Combined form of senile cataract of both eyes Optic cupping of both eyes Type 2 diabetes mellitus without retinopathy (HCC) Type II or unspecified type diabetes mellitus without mention of complication, not stated as uncontrolled Essential hypertension Unspecified essential hypertension [facility] Diagnosis Vasovagal syncope- Primary Syncope and collapse Right hemiparesis (Multi) Unspecified hemiplegia affecting unspecified side Type 2 diabetes mellitus with diabetic polyneuropathy, without long-term current use of insulin (Multi) Esophageal dysphagia Dysphagia, pharyngoesophageal phase documented in this encounter [facility] Work Phone: [phone] note* Diagnosis Dysphagia, unspecified type- Primary documented in this encounter [facility] Work Phone: [phone] note* Diagnosis Elevated PSA Elevated prostate specific antigen (PSA) Nocturia 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 Benign prostatic hyperplasia with lower urinary tract symptoms, symptom details unspecified Calculus of kidney documented in this encounter [facility] Work Phone: [phone] note* Diagnosis Elevated PSA Elevated prostate specific antigen (PSA) documented in this encounter [facility] Work Phone: [phone] note* Diagnosis Elevated PSA Elevated prostate specific antigen (PSA) Nocturia 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 Benign prostatic hyperplasia with lower urinary tract symptoms, symptom details unspecified Calculus of kidney documented in this encounter [facility] Work Phone: Evaluation note* Diagnosis Elevated PSA- Primary Elevated prostate specific antigen (PSA) Routine general medical examination at health care facility- Primary Routine general medical examination at a health care facility HTN (hypertension), benign Essential hypertension, benign Elevated PSA Elevated prostate specific antigen (PSA) documented in this encounter [facility] Work Phone: Evaluation note* Diagnosis 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- Primary 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, unspecified Optic cupping of both eyes Epiretinal membrane, both eyes Macular puckering of retina Type 2 diabetes mellitus without retinopathy (HCC) Type II or unspecified type diabetes mellitus without mention of complication, not stated as uncontrolled Essential hypertension Unspecified essential hypertension [facility]* Diagnosis Coronary artery disease involving [place] coronary artery of [place] heart, unspecified whether angina present documented in this encounter [facility] Work Phone: Evaluation note* Diagnosis 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- Primary [facility]* Diagnosis Syncope- Primary Syncope and collapse Syncope Syncope and collapse Sinus bradycardia Other specified cardiac dysrhythmias S/P placement of cardiac pacemaker CAD (coronary artery disease) Coronary atherosclerosis of unspecified type of vessel, [place] or graft Sinus bradycardia Other specified cardiac dysrhythmias S/P placement of cardiac pacemaker CAD (coronary artery disease) Coronary atherosclerosis of unspecified type of vessel, [place] or graft Syncope Syncope and collapse Sinus bradycardia Other specified cardiac dysrhythmias Prostate cancer (Multi) Malignant neoplasm of prostate 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 Nocturia documented in this encounter [facility] Work Phone: Evaluation note* Diagnosis Chest pain, unspecified type- Primary S/P placement of cardiac pacemaker Prostate cancer (Multi) Malignant neoplasm of prostate 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 Nocturia documented in this encounter [facility] Work Phone: Evaluation note* Diagnosis Sick sinus syndrome (Multi) Sinoatrial node dysfunction Cardiac pacemaker in situ Prostate cancer (Multi) Malignant neoplasm of prostate 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 Nocturia documented in this encounter [facility] Work Phone: Evaluation note* Diagnosis S/P placement of cardiac pacemaker Prostate cancer (Multi) Malignant neoplasm of prostate 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 Nocturia documented in this encounter [facility] Work Phone: [phone] note* Diagnosis Prostate cancer (Multi) Malignant neoplasm of prostate 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 Nocturia documented in this encounter [facility] Work Phone: [phone] note* Diagnosis Posterior vitreous detachment of left eye- Primary Vitreous degeneration Floater, vitreous, left [facility]* Diagnosis Essential hypertension- Primary Unspecified essential hypertension HTN (hypertension), benign Essential hypertension, benign Vitamin B12 deficiency Other B-complex deficiencies Type 2 diabetes mellitus with diabetic polyneuropathy, without long-term current use of insulin documented in this encounter [facility] Work Phone: [phone] note* Diagnosis S/P placement of cardiac pacemaker documented in this encounter [facility] Work Phone: [phone] note* Diagnosis Elevated PSA- Primary Elevated prostate specific antigen (PSA) documented in this encounter [facility] Work Phone: [phone] note* Diagnosis Abnormal stress test- Primary Other nonspecific abnormal cardiovascular system function study Abnormal stress test Other nonspecific abnormal cardiovascular system function study Coronary artery disease involving [place] coronary artery of [place] heart, unspecified whether angina present Sick sinus syndrome (Multi) Sinoatrial node dysfunction Abnormal stress test Other nonspecific abnormal cardiovascular system function study documented in this encounter [facility] Work Phone: [phone] note* Diagnosis H/O syncope- Primary Sinus bradycardia Other specified cardiac dysrhythmias Essential hypertension Unspecified essential hypertension Abnormal stress test- Primary Other nonspecific abnormal cardiovascular system function study Bradycardia Other specified cardiac dysrhythmias Abnormal stress test Other nonspecific abnormal cardiovascular system function study Sinus bradycardia Other specified cardiac dysrhythmias Essential hypertension Unspecified essential hypertension H/O syncope documented in this encounter [facility] Work Phone: [phone] note* Diagnosis Elevated PSA Elevated prostate specific antigen (PSA) Nocturia 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 Prostate cancer (Multi) Malignant neoplasm of prostate documented in this encounter [facility] Work Phone: [phone] note* Diagnosis HTN (hypertension), benign- Primary Essential hypertension, benign Bradycardia Other specified cardiac dysrhythmias documented in this encounter [facility] Work Phone: [phone] note* Diagnosis Bradycardia Other specified cardiac dysrhythmias documented in this encounter [facility] Work Phone: [phone] note* Diagnosis Prostate cancer (Multi) Malignant neoplasm of prostate 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 Elevated PSA Elevated prostate specific antigen (PSA) Nocturia documented in this encounter [facility] Work Phone: [phone] note* Diagnosis Bradycardia- Primary Other specified cardiac dysrhythmias Atherosclerosis of [place] coronary artery of [place] heart without angina pectoris Sick sinus syndrome (Multi) Sinoatrial node dysfunction H/O syncope Hypertriglyceridemia Pure hyperglyceridemia Coronary artery disease involving [place] coronary artery of [place] heart, unspecified whether angina present documented in this encounter [facility] Work Phone: [phone] note* Diagnosis Bradycardia Other specified cardiac dysrhythmias Atherosclerosis of [place] coronary artery of [place] heart without angina pectoris Bradycardia Other specified cardiac dysrhythmias Atherosclerosis of [place] coronary artery of [place] heart without angina pectoris documented in this encounter [facility] Work Phone: [phone] note* Diagnosis Sinus bradycardia- Primary Other specified cardiac dysrhythmias Mild cardiomegaly Hypertriglyceridemia Pure hyperglyceridemia Essential hypertension Unspecified essential hypertension H/O syncope H/O syncope- Primary Sinus bradycardia Other specified cardiac dysrhythmias Essential hypertension Unspecified essential hypertension documented in this encounter [facility] Work Phone: [phone] note* Diagnosis Bradycardia Other specified cardiac dysrhythmias Atherosclerosis of [place] coronary artery of [place] heart without angina pectoris documented in this encounter [facility] Work Phone: [phone] note* Diagnosis H/O syncope- Primary Sinus bradycardia Other specified cardiac dysrhythmias Essential hypertension Unspecified essential hypertension Abnormal stress test- Primary Other nonspecific abnormal cardiovascular system function study Bradycardia Other specified cardiac dysrhythmias Atherosclerosis of [place] coronary artery of [place] heart without angina pectoris Abnormal stress test Other nonspecific abnormal cardiovascular system function study Sinus bradycardia Other specified cardiac dysrhythmias Essential hypertension Unspecified essential hypertension H/O syncope documented in this encounter [facility] Work Phone: [phone] note* Diagnosis Elevated PSA Elevated prostate specific antigen (PSA) Prostate cancer (Multi) Malignant neoplasm of prostate documented in this encounter [facility] Work Phone: [phone] note* Diagnosis Bradycardia Other specified cardiac dysrhythmias Atherosclerosis of [place] coronary artery of [place] heart without angina pectoris Bradycardia Other specified cardiac dysrhythmias Atherosclerosis of [place] coronary artery of [place] heart without angina pectoris documented in this encounter [facility] Work Phone: [phone] note* Diagnosis HTN (hypertension), benign- Primary Essential hypertension, benign Type 2 diabetes mellitus without complication, without long-term current use of insulin ([facility]) Vitamin B12 deficiency Other B-complex deficiencies Pain Generalized pain Weakness of right lower extremity documented in this encounter [facility] Work Phone: [phone] note* Diagnosis Glaucoma suspect of both eyes- Primary Preglaucoma, 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 Optic cupping of both eyes Combined form of senile cataract of both eyes Essential hypertension Unspecified essential hypertension Pacemaker Cardiac pacemaker in situ Arthritis Arthropathy, unspecified, site unspecified [facility]* Diagnosis Prostate cancer (Multi) Malignant neoplasm of prostate 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 Nocturia documented in this encounter [facility] Work Phone: [phone] note* Diagnosis Essential hypertension- Primary Unspecified essential hypertension S/P placement of cardiac pacemaker CAD (coronary artery disease) Coronary atherosclerosis of unspecified type of vessel, [place] or graft Pacemaker Cardiac pacemaker in situ documented in this encounter [facility] Work Phone: [phone] note* Diagnosis Malignant neoplasm of prostate (Multi) Malignant neoplasm of prostate documented in this encounter [facility] Work Phone: [phone] note* Diagnosis Prostate cancer (Multi) Malignant neoplasm of prostate 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 Elevated PSA Elevated prostate specific antigen (PSA) Nocturia documented in this encounter [facility] Work Phone: Evaluation note* Diagnosis Sick sinus syndrome (Multi) Sinoatrial node dysfunction Cardiac pacemaker in situ documented in this encounter [facility] Work Phone: Evaluation note* Diagnosis Prostate cancer (Multi)- Primary Malignant neoplasm of prostate Urinary frequency documented in this encounter [facility] Work Phone: Evaluation note* Diagnosis Sick sinus syndrome (Multi)- Primary Sinoatrial node dysfunction S/P placement of cardiac pacemaker Cardiac pacemaker in situ Coronary artery disease involving [place] coronary artery of [place] heart with other form of angina pectoris Atherosclerosis of [place] coronary artery of [place] heart without angina pectoris H/O syncope Essential hypertension Unspecified essential hypertension High cholesterol Pure hypercholesterolemia Mild cardiomegaly Sinus bradycardia Other specified cardiac dysrhythmias Cerebrovascular accident (CVA), unspecified mechanism (Multi) documented in this encounter [facility] Work Phone: History of Present illness Narrative* Diabetes mellitus: Patient reports that he continues to notice occasionally his blood glucose levels can be as high as 160s. However he noticed that if he had sugar the day prior he can have a bettersugar reading than next day morning. He is taking Metformin 1000 mg twice daily. He is also more trying to lose weight that he has gained after his stroke. he has been able to consistently loosing weight. patient would like to continue to work on by himself. patient does not want to change regimen at this time. * Stroke: Still recovering - reports that his recovery went well. his right lower extremity is strongnow . his memory is at baseline as well. * Also has arthritic pain in upper and lower extremities which makes it difficult to exercise. * Has been having severe low back pain with radiation to the left gluteal region. * Has had diagnosis of right carpel tunnel syndrome for which there was discussion of surgery, but hedid not go through with that. Now the left hand bothers him in the dorsal surface of the thumb region. has been using carpel tunnel brace, which helps a little. 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 * Follow up in 6 months, with labs before appointment. -[facility] Work Phone: History of Present illness Narrative* The patient is being seen for the subsequent annual wellness visit. * Past Medical, Surgical and Family History: reviewed and updated in chart. * Medications and Supplements: Review of all medications by a prescribing practitioner or clinical pharmacist (such as prescriptions, OTCs, herbal therapies and supplements) documented in the medical record. * No, the patient is not using opioids. * Patient Self Assessment of Health Status: good. * Tobacco use: Non-User * Alcohol use: Non-User * Illicit drug use: Non-User * Current diet: well balanced diet, Diabetic Diet, does consume adequate fluids and does consume caffeine. * Exercise Frequency: regularly. * Depression/Suicide Screening:. * During the past 2 weeks, the patient has not felt down, depressed or hopeless. * During the past 2 weeks, the patient has not felt little interest or pleasure in doing things. * Hearing Impairment: none. * Cognitive Impairment: No cognitive impairment observed. * Bathing: performs independently. * Dressing: performs independently. * Walking: performs independently. * Managing Finances: performs independently. * Shopping: performs independently. * Managing Medications: performs independently. * Housework / Basic Home Maintenance: performs independently. * Falls Risk Screening:. ALLI has not fallen in the last 6 months. * Home safety risk factors: none. * Advance directives:. Advanced Care Planning discussed and documented advance care plan or surrogatedecision maker documented in the medical record. Patient has living will. Patient has healthcare POA. * Patient is here for follow-up regarding diabetes mellitus. * Diabetes mellitus: Patient reports that his blood glucose levels have been better control before hecontracted Covid infection early July(about 2 months ago). Since then his blood glucose levels have been elevated. Prior to that he has lost some weight however since then he has gained some weight. Reports that lately his blood glucose levels have been returning to his pre- COVID infection levels. Mostly noticing fasting blood glucose levels at 140. He is taking Metformin 1000 mg twice daily. He is also more trying to lose weight that he has gained after his stroke. he has been able to consistently loosing weight. patient would like to continue to work on by himself. patient does not want to change regimen at this time. Discussed about the treatment options including adding glipizide. Patient would like to continue to monitor for now. Discussed about the potential risk with high blood glucose levels. Patient expressed understanding. * Stroke: Mostly recovered well. His right lower extremity is strong now . his memory is at baseline as well. * Reports that he has noticed bilateral lower extremity edema lately. Denies any injury, pain, inflammation. He has not been as active as before. He will resume activity and see if this improves his symptoms. Denies orthopnea, shortness of breath. * Also has arthritic pain in upper and lower extremities which makes it difficult to exercise. * Has been having severe low back pain with radiation to the left gluteal region. * Has had diagnosis of right carpel tunnel syndrome for which there was discussion of surgery, but hedid not go through with that. Now the left hand bothers him in the dorsal surface of the thumb region. has been using carpel tunnel brace, which helps a little. 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 * Follow up in 3 months, with labs before appointment. [facility] Work Phone: History of Present illness Narrative* The patient is being seen for the subsequent annual wellness visit. * Past Medical, Surgical and Family History: reviewed and updated in chart. * Medications and Supplements: Review of all medications by a prescribing practitioner or clinical pharmacist (such as prescriptions, OTCs, herbal therapies and supplements) documented in the medical record. * No, the patient is not using opioids. * Patient Self Assessment of Health Status: good. * Tobacco use: Non-User * Alcohol use: Non-User * Illicit drug use: Non-User * Current diet: well balanced diet, Diabetic Diet, does consume adequate fluids and does consume caffeine. * Exercise Frequency: regularly. * Depression/Suicide Screening:. * During the past 2 weeks, the patient has not felt down, depressed or hopeless. * During the past 2 weeks, the patient has not felt little interest or pleasure in doing things. * Hearing Impairment: none. * Cognitive Impairment: No cognitive impairment observed. * Bathing: performs independently. * Dressing: performs independently. * Walking: performs independently. * Managing Finances: performs independently. * Shopping: performs independently. * Managing Medications: performs independently. * Housework / Basic Home Maintenance: performs independently. * Falls Risk Screening:. ALLI has not fallen in the last 6 months. * Home safety risk factors: none. * Advance directives:. Advanced Care Planning discussed and documented advance care plan or surrogatedecision maker documented in the medical record. Patient has living will. Patient has healthcare POA. * Patient is here for follow-up regarding diabetes mellitus. * Diabetes mellitus: Patient reports that he has been watching his diet and has been working on beingphysically active. denies polyuria, polydipsia or blurry vision * Plan: A1C has signficantly improved now with A1C at 6.8 down from 7.7. * Stroke: Mostly recovered well. His right lower extremity is strong now . his memory is at baseline as well. * Reports that he has noticed bilateral lower extremity edema lately. Denies any injury, pain, inflammation. He has not been as active as before. He will resume activity and see if this improves his symptoms. Denies orthopnea, shortness of breath. * Also has arthritic pain in upper and lower extremities which makes it difficult to exercise. * Has been having severe low back pain with radiation to the left gluteal region. * Has had diagnosis of right carpel tunnel syndrome for which there was discussion of surgery, but hedid not go through with that. Now the left hand bothers him in the dorsal surface of the thumb region. has been using carpel tunnel brace, which helps a little. 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 * Follow up in 3 months, with labs before appointment. -[facility] Work Phone: History of Present illness Narrative* The pt presents with Medical Dx of Weakness of R LE, Pain. Pt presents with the following deficits:increased pain, decreased strength, ROM, flexibility, balance, gait and functional mobility. Pt would benefit from PT services in order to improve on these deficits and to maximize strength and ability for functional activity/mobility. * Clinical Presentation: Evolving with changing characteristics. * Level of Complexity: low * Problem List: activity limitations, ADLs/IADLs/self care skills, balance, decreased knowledge of HEP, fall risk, flexibility, gait/locomotion, range of motion/joint mobility and strength. [facility] Work Phone: History of Present illness Narrative* Fair tolerance with TE which patient tolerated increased reps with exercises. Added standing TE with B UE support needed. Standing rest breaks needed, declined to sit down. Verbal cues needed with left LE with gait to not ER foot. * Response to treatment: decreased pain. * Patient was able to complete today's treatment with [facility] difficulty. [facility] Work Phone: Hisqxhu of Present illness Narrative* Good form and tolerance to ex's performed today without significant pain increase. * Minimal cueing needed occasionally for form. Pt was challenged with new/progressed ex's today. * Response to treatment: improved strength and improved flexibility. * Patient was able to complete today's treatment with some difficulty. [facility] Work Phone: Hisuvut of Present illness Narrative* Good tolerance to ex's performed with minimal cues needed for form. Pt is challenged with ex's performed. LE strength and balance is slowly improving with treatment. * Response to treatment: improved strength and improved balance. [facility] Work Phone: Hismokj of Present illness Narrative* Good form and tolerance to ex's performed today without significant pain increase. Pt is getting stronger with his ex's and performs them with clean form. * Response to treatment: improved strength and improved balance. [facility] Work Phone: Hisjxac of Present illness Narrative* The pt has made good objective progress in PT with improved b/l LE strength and balance. The pt hasMET all of his PT goals and is I with current HEP. DC PT at this time. * Response to treatment: improved strength and improved balance. [facility] Work Phone: Hospital Discharge instructions* Attachments The following attachments cannot be sent through Care Everywhere. * Chest Pain Discharge Instructions (Palestinian) * Pacemakers (Palestinian) [facility] Work Phone: Reason for referral (narrative)* Consultation (Routine) - Authorized Specialty Diagnoses / Procedures Referred By Contfloyd t Referred To Contact Gastroenterology Diagnoses Esophageal dysphagia Chris Crane MD [address] [facility] [place][note 2], [address] [place] [phone] Referral ID Status Reason Start Date Expiration Date Visits Requested Visits Authorized [id number] Authorized Specialty Services Required 10/20/2023 10/19/20[address] Courtney [facility] Work Phone: reason for referral (narrative)* Consultation (Routine) - Authorized Specialty Diagnoses / Procedures Referred By Contac t Referred To Contact Cardiothoracic Surgery / Cardiac Surgery Diagnoses Coronary artery disease involving [place] coronary artery of [place] heart, unspecified whether angina present Flavia Noland APRN-[employer]ER [address] [facility], [place] [phone] Nusrat Morgan MD [address] [place], [place] [phone] Referral ID Status Reason Start Date Expiration Date Visits Requested Visits Authorized [id number] Authorized Specialty Services Required 03/25/2024 03/25/2025 1 1 [facility] Work Phone: reason for referral (narrative)* Consultation (Routine) - Authorized Specialty Diagnoses / Procedures Referred By Contac t Referred To Contact Cardiology Diagnoses Segundo Steel MD MPH [address] [facility] [place][note 2], [facility] [address] [phone] Toby Henderson MD [address] [facility], [place] [phone] Referral ID Status Reason Start Date Expiration Date Visits Requested Visits Authorized [id number] Authorized Specialty Services Required 02/19/2024 02/18/2025 1 1 [facility] Work Phone: Repknm for referral (narrative)No reason for referral information availableWAkron [facility] Work Phone: Reason for visit Narrative* Initial Evaluation. * Referred by: Dr. [facility] Work Phone: Reason for visit Narrative* Auth/Cert Specialty Diagnoses / Procedures Referred By Louie church Referred To Contact Diagnoses Syncope Sinus bradycardia Syncope [R55] Sinus bradycardia [R00.1] Procedures MN INS NEW/RPLCMT PRM PM W/TRANSV ELTRD ATRIAL&VENT Dual Chamber PPM (53758) Randolph Bernal MD [address], [address] [address] Phone: tel: fax: [facility] [address] [place] [address] Phone: tel: fax: Referral ID Status Reason Start Date Expiration Date Visits Re quested Visits Authorized [id number] 1 1 [facility] Work Phone: Retnus for visit Narrative* Imaging (Routine) - Authorized Specialty Diagnoses / Procedures Referred By Louie church Referred To Contact Cardiology Diagnoses Sick sinus syndrome (Multi) Cardiac pacemaker in situ Procedures Cardiac Device Check - Remote Randolph Bernal MD [address], [address] [address] Phone: tel: fax: [facility] [address] [address] Phone: tel: fax: Referral ID Status Reason Start Date Expiration Date Visits Requested Visits Authorized [id number] Authorized Perform Procedure 4 05/04/2025 9 9 [facility] Work Phone: reason for visit Narrative* Imaging (Routine) - Pending Review Specialty Diagnoses / Procedures Referred By Contac t Referred To Contact Cardiology Diagnoses S/P placement of cardiac pacemaker Procedures Cardiac device check - In Clinic Randolph Bernal MD [address], [address] [place] [address] Phone: tel: fax: Referral ID Status Reason Start Date Expiration Date Visits Requested Visits Authorized [id number] Pending Review Perform Procedure 03/15/2024 03/15/2025 1 1 [facility] Work Phone: Rebfkk for visit Narrative* Auth/Cert Specialty Diagnoses / Procedures Referred By Contac t Referred To Contact Diagnoses Abnormal stress test Abnormal stress test [R94.39] Procedures MN CATH PLMT L HRT & ARTS W/NJX & ANGIO IMG S&I Left Heart Cath Toby Henderson MD [address] [facility] [place], [facility] 2 [place] [address] [facility] [address] [place] [address] Referral ID Status Reason Start Date Expiration Date Visits Re quested Visits Authorized [id number] 1 1 [facility] Work Phone: Reikyh for visit Narrative* Imaging (Routine) - Authorized Specialty Diagnoses / Procedures Referred By Contac t Referred To Contact Radiology Diagnoses Malignant neoplasm of prostate (Multi) Procedures CT pelvis w IV contrast CHG CT PELVIS W/CONTRAST MATERIAL Linn Ibrahim DO [address] [facility] [address] [place] [address] Phone: tel: fax: Referral ID Status Reason Start Date Expiration Date Visits Requested Visits Authorized [id number] Authorized Perform Procedure 08/04/2024 08/04/2025 1 1 [facility] Work Phone: Rekbpg for visit Narrative* Imaging (Routine) - Pending Review Specialty Diagnoses / Procedures Referred By Contac t Referred To Contact Cardiology Diagnoses S/P placement of cardiac pacemaker Sick sinus syndrome (Multi) Procedures Cardiac Device Check - In Clinic Randolph Bernal MD [address], [address] [address] Phone: tel: fax: Referral ID Status Reason Start Date Expiration Date Visits Requested Visits Authorized [id number] Pending Review Perform Procedure 4 05/31/2025 1 1 [facility] Work Phone: Summary Purpose Family History No Family History Records Found Mother Name Dates Details Family history of chronic ob structive pulmonary disease(V17.6, Z82.5) Status:Active Father Name Dates Details Family history of myocardial infarction(V17.3, Z82.49) Status:Active Family history of cardiac pa cemaker(V17.49, Z82.49) Status:Active Mother Name Dates Details Family history of chronic ob structive pulmonary disease(V17.6, Z82.5) Status:Active Father Name Dates Details Family history of myocardial infarction(V17.3, Z82.49) Status:Active Family history of cardiac pa cemaker(V17.49, Z82.49) Status:Active Mother Name Dates Details Family history of chronic ob structive pulmonary disease(V17.6, Z82.5) Status:Active Father Name Dates Details Family history of myocardial infarction(V17.3, Z82.49) Status:Active Family history of cardiac pa cemaker(V17.49, Z82.49) Status:Active Unknown Family Member Name Dates Details Family history of chronic ob structive pulmonary disease: Mother(V17.6, Z82.5) Status:Active Family history of myocardial infarction: Father(V17.3, Z82.49) Status:Active Family history of cardiac pa cemaker: Father(V17.49, Z82.49) Status:Active Unknown Family Member Name Dates Details Family history of chronic ob structive pulmonary disease: Mother(V17.6, Z82.5) Status:Active Family history of myocardial infarction: Father(V17.3, Z82.49) Status:Active Family history of cardiac pa cemaker: Father(V17.49, Z82.49) Status:Active Unknown Family Member Name Dates Details Family history of chronic ob structive pulmonary disease: Mother(V17.6, Z82.5) Status:Active Family history of myocardial infarction: Father(V17.3, Z82.49) Status:Active Family history of cardiac pa cemaker: Father(V17.49, Z82.49) Status:Active Unknown Family Member Name Dates Details Family history of chronic ob structive pulmonary disease: Mother(V17.6, Z82.5) Status:Active Family history of myocardial infarction: Father(V17.3, Z82.49) Status:Active Family history of cardiac pa cemaker: Father(V17.49, Z82.49) Status:Active Unknown Family Member Name Dates Details Family history of chronic ob structive pulmonary disease: Mother(V17.6, Z82.5) Status:Active Family history of myocardial infarction: Father(V17.3, Z82.49) Status:Active Family history of cardiac pa cemaker: Father(V17.49, Z82.49) Status:Active Unknown Family Member Name Dates Details Family history of chronic ob structive pulmonary disease: Mother(V17.6, Z82.5) Status:Active Family history of myocardial infarction: Father(V17.3, Z82.49) Status:Active Family history of cardiac pa cemaker: Father(V17.49, Z82.49) Status:Active Unknown Family Member Name Dates Details Family history of chronic ob structive pulmonary disease: Mother(V17.6, Z82.5) Status:Active Family history of myocardial infarction: Father(V17.3, Z82.49) Status:Active Family history of cardiac pa cemaker: Father(V17.49, Z82.49) Status:Active Unknown Family Member Name Dates Details Family history of chronic ob structive pulmonary disease: Mother(V17.6, Z82.5) Status:Active Family history of myocardial infarction: Father(V17.3, Z82.49) Status:Active Family history of cardiac pa cemaker: Father(V17.49, Z82.49) Status:Active Unknown Family Member Name Dates Details Family history of chronic ob structive pulmonary disease: Mother(V17.6, Z82.5) Status:Active Family history of myocardial infarction: Father(V17.3, Z82.49) Status:Active Family history of cardiac pa cemaker: Father(V17.49, Z82.49) Status:Active Unknown Family Member Name Dates Details Family history of chronic ob structive pulmonary disease: Mother(V17.6, Z82.5) Status:Active Family history of myocardial infarction: Father(V17.3, Z82.49) Status:Active Family history of cardiac pa cemaker: Father(V17.49, Z82.49) Status:Active Unknown Family Member Name Dates Details Family history of chronic ob structive pulmonary disease: Mother(V17.6, Z82.5) Status:Active Family history of myocardial infarction: Father(V17.3, Z82.49) Status:Active Family history of cardiac pa cemaker: Father(V17.49, Z82.49) Status:Active Unknown Family Member Name Dates Details Family history of chronic ob structive pulmonary disease: Mother(V17.6, Z82.5) Status:Active Family history of myocardial infarction: Father(V17.3, Z82.49) Status:Active Family history of cardiac pa cemaker: Father(V17.49, Z82.49) Status:Active Unknown Family Member Name Dates Details Family history of chronic ob structive pulmonary disease: Mother(V17.6, Z82.5) Status:Active Family history of myocardial infarction: Father(V17.3, Z82.49) Status:Active Family history of cardiac pa cemaker: Father(V17.49, Z82.49) Status:Active Unknown Family Member Name Dates Details Family history of chronic ob structive pulmonary disease: Mother(V17.6, Z82.5) Status:Active Family history of myocardial infarction: Father(V17.3, Z82.49) Status:Active Family history of cardiac pa cemaker: Father(V17.49, Z82.49) Status:Active Unknown Family Member Name Dates Details Family history of chronic ob structive pulmonary disease: Mother(V17.6, Z82.5) Status:Active Family history of myocardial infarction: Father(V17.3, Z82.49) Status:Active Family history of cardiac pa cemaker: Father(V17.49, Z82.49) Status:Active Unknown Family Member Name Dates Details Family history of chronic ob structive pulmonary disease: Mother(V17.6, Z82.5) Status:Active Family history of myocardial infarction: Father(V17.3, Z82.49) Status:Active Family history of cardiac pa cemaker: Father(V17.49, Z82.49) Status:Active Unknown Family Member Name Dates Details Family history of chronic ob structive pulmonary disease: Mother(V17.6, Z82.5) Status:Active Family history of myocardial infarction: Father(V17.3, Z82.49) Status:Active Family history of cardiac pa cemaker: Father(V17.49, Z82.49) Status:Active Unknown Family Member Name Dates Details Family history of chronic ob structive pulmonary disease: Mother(V17.6, Z82.5) Status:Active Family history of myocardial infarction: Father(V17.3, Z82.49) Status:Active Family history of cardiac pa cemaker: Father(V17.49, Z82.49) Status:Active Unknown Family Member Name Dates Details Family history of chronic ob structive pulmonary disease: Mother(V17.6, Z82.5) Status:Active Family history of myocardial infarction: Father(V17.3, Z82.49) Status:Active Family history of cardiac pa cemaker: Father(V17.49, Z82.49) Status:Active Unknown Family Member Name Dates Details Family history of chronic ob structive pulmonary disease: Mother(V17.6, Z82.5) Status:Active Family history of myocardial infarction: Father(V17.3, Z82.49) Status:Active Family history of cardiac pa cemaker: Father(V17.49, Z82.49) Status:Active Unknown Family Member Name Dates Details Family history of chronic ob structive pulmonary disease: Mother(V17.6, Z82.5) Status:Active Family history of myocardial infarction: Father(V17.3, Z82.49) Status:Active Family history of cardiac pa cemaker: Father(V17.49, Z82.49) Status:Active Unknown Family Member Name Dates Details Family history of chronic ob structive pulmonary disease: Mother(V17.6, Z82.5) Status:Active Family history of myocardial infarction: Father(V17.3, Z82.49) Status:Active Family history of cardiac pa cemaker: Father(V17.49, Z82.49) Status:Active Unknown Family Member Name Dates Details Family history of chronic ob structive pulmonary disease: Mother(V17.6, Z82.5) Status:Active Family history of myocardial infarction: Father(V17.3, Z82.49) Status:Active Family history of cardiac pa cemaker: Father(V17.49, Z82.49) Status:Active Unknown Family Member Name Dates Details Family history of chronic ob structive pulmonary disease: Mother(V17.6, Z82.5) Status:Active Family history of myocardial infarction: Father(V17.3, Z82.49) Status:Active Family history of cardiac pa cemaker: Father(V17.49, Z82.49) Status:Active Unknown Family Member Name Dates Details Family history of chronic ob structive pulmonary disease: Mother(V17.6, Z82.5) Status:Active Family history of myocardial infarction: Father(V17.3, Z82.49) Status:Active Family history of cardiac pa cemaker: Father(V17.49, Z82.49) Status:Active Unknown Family Member Name Dates Details Family history of chronic ob structive pulmonary disease: Mother(V17.6, Z82.5) Status:Active Family history of myocardial infarction: Father(V17.3, Z82.49) Status:Active Family history of cardiac pa cemaker: Father(V17.49, Z82.49) Status:Active Unknown Family Member Name Dates Details Family history of chronic ob structive pulmonary disease: Mother(V17.6, Z82.5) Status:Active Family history of myocardial infarction: Father(V17.3, Z82.49) Status:Active Family history of cardiac pa cemaker: Father(V17.49, Z82.49) Status:Active Unknown Family Member Name Dates Details Family history of chronic ob structive pulmonary disease: Mother(V17.6, Z82.5) Status:Active Family history of myocardial infarction: Father(V17.3, Z82.49) Status:Active Family history of cardiac pa cemaker: Father(V17.49, Z82.49) Status:Active Unknown Family Member Name Dates Details Family history of chronic ob structive pulmonary disease: Mother(V17.6, Z82.5) Status:Active Family history of myocardial infarction: Father(V17.3, Z82.49) Status:Active Family history of cardiac pa cemaker: Father(V17.49, Z82.49) Status:Active Unknown Family Member Name Dates Details Family history of chronic ob structive pulmonary disease: Mother(V17.6, Z82.5) Status:Active Family history of myocardial infarction: Father(V17.3, Z82.49) Status:Active Family history of cardiac pa cemaker: Father(V17.49, Z82.49) Status:Active Unknown Family Member Name Dates Details Family history of chronic ob structive pulmonary disease: Mother(V17.6, Z82.5) Status:Active Family history of myocardial infarction: Father(V17.3, Z82.49) Status:Active Family history of cardiac pa cemaker: Father(V17.49, Z82.49) Status:Active Unknown Family Member Name Dates Details Family history of chronic ob structive pulmonary disease: Mother(V17.6, Z82.5) Status:Active Family history of myocardial infarction: Father(V17.3, Z82.49) Status:Active Family history of cardiac pa cemaker: Father(V17.49, Z82.49) Status:Active Unknown Family Member Name Dates Details Family history of chronic ob structive pulmonary disease: Mother(V17.6, Z82.5) Status:Active Family history of myocardial infarction: Father(V17.3, Z82.49) Status:Active Family history of cardiac pa cemaker: Father(V17.49, Z82.49) Status:Active Unknown Family Member Name Dates Details Family history of chronic ob structive pulmonary disease: Mother(V17.6, Z82.5) Status:Active Family history of myocardial infarction: Father(V17.3, Z82.49) Status:Active Family history of cardiac pa cemaker: Father(V17.49, Z82.49) Status:Active Unknown Family Member Name Dates Details Family history of chronic ob structive pulmonary disease: Mother(V17.6, Z82.5) Status:Active Family history of myocardial infarction: Father(V17.3, Z82.49) Status:Active Family history of cardiac pa cemaker: Father(V17.49, Z82.49) Status:Active Unknown Family Member Name Dates Details Family history of chronic ob structive pulmonary disease: Mother(V17.6, Z82.5) Status:Active Family history of myocardial infarction: Father(V17.3, Z82.49) Status:Active Family history of cardiac pa cemaker: Father(V17.49, Z82.49) Status:Active Unknown Family Member Name Dates Details Family history of chronic ob structive pulmonary disease: Mother(V17.6, Z82.5) Status:Active Family history of myocardial infarction: Father(V17.3, Z82.49) Status:Active Family history of cardiac pa cemaker: Father(V17.49, Z82.49) Status:Active Unknown Family Member Name Dates Details Family history of chronic ob structive pulmonary disease: Mother(V17.6, Z82.5) Status:Active Family history of myocardial infarction: Father(V17.3, Z82.49) Status:Active Family history of cardiac pa cemaker: Father(V17.49, Z82.49) Status:Active Unknown Family Member Name Dates Details Family history of chronic ob structive pulmonary disease: Mother(V17.6, Z82.5) Status:Active Family history of myocardial infarction: Father(V17.3, Z82.49) Status:Active Family history of cardiac pa cemaker: Father(V17.49, Z82.49) Status:Active Unknown Family Member Name Dates Details Family history of chronic ob structive pulmonary disease: Mother(V17.6, Z82.5) Status:Active Family history of myocardial infarction: Father(V17.3, Z82.49) Status:Active Family history of cardiac pa cemaker: Father(V17.49, Z82.49) Status:Active Advance Directives No Advanced Directives Records FoundDocuments on File Type Date Recorded Patient Rn Neurosurgical Expl anation Advance Directives and Living Will Documents on File Type Date Recorded Patient Rn Neurosurgical Expl anation Advance Directives and Living Will Documents on File Type Date Recorded Patient Rn Neurosurgical Expl anation Living Will 12/29/2023 6:17 AM Date Activated Date Inactivated Comments 12/29/2023 6:06 AM Question Answer Comments Plan of Care: Code Status Discussion Completed Decision Maker: Patient Documents on File Type Date Recorded Patient Rn Neurosurgical Expl anation Living Will 12/29/2023 6:17 AM Date Activated Date Inactivated Comments 12/29/2023 6:06 AM Question Answer Comments Plan of Care: Code Status Discussion Completed Decision Maker: Patient Advance Directive Response Recorded Date/ Time Do you have a Healthcare Power of Supervisor [employer]? Yes November 24, 2024 2:38pm Hospital Course Note CLINICAL SUMMARYPlease take this summary document to your follow up appointments. [facility] [id number] [place], [place]. [address]Kmkxy: PATIENT INFORMATION Name: ALLI THOMPSON Address: [address] [place] [address] Age: 67 Years Phone: [phone] : 1950 12:00 MRN: ([facility])-[id number] Sex: Male Race: White Ethnicity: Not Hispan/Lat Admitted From: Clinic or [facility] Medical Service: Orthopedic Surgery Nurse Unit/Bed: (CO) 2N 245-01 Admit Date: 04/15/2018 06:57 PCP: Physician, PCP UnknownPHYSICIANS INVOLVED WITH CARE Attending Physicians: None found Admitting Physician: None found Primary Care Physician:Physician, PCP Unknown,Family Practice,,, - Consults: Kendrick Sunshine MD - Internal Medicine [facility] - Internal Medicine Problems Active Enlarged prostate Osteoarthrit (more content not included)... Note Patient: ALLI THOMPSON MR N: ([id number] Age: 67 years Sex: Male : 1950 Associated Diagnoses: None Author: Kendrick Sunshine MD Impression Diagnosis DDD (degenerative disc disease), lumbar (IDO76-VR M51.36, Working, Medical). Plan S/P Lumbar Fusion - Pain controlled. Oral and IV pain medication ordered for postoperative pain management. DVT prophylaxis - as directed by the primary surgical team. Recommend prophylaxis as per 2012 ACCP concensus guidelines. Encourage lower extremity venous return exercises. Hypertension (I10) - chronic condition present on admission, reasonable postoperative control. Patient's home prescription antihypertensive medicines have been ordered. Benign Prostatic Hypertrophy (N40.0) - chronic and present on admission, treated with home prescription medicines which have been reordered. Patient will be at risk for and will need to be monitored closely for postoperative urinary retention. Hypertension (I10) - chronic condition p (more content not included)... Note Patient: ALLI THOMPSON MR N: ([id number] Age: 67 years Sex: Male : 1950 Associated Diagnoses: None Author: Kendrick Sunshine MD Diagnosis Chronic osteoarthritis (UXS34-GC M19.90, Working, Medical). Plan Postoperative medical comanagement. I have ordered pain medicines including IV opiates, home prescription medications have been reviewed and appropriate medicines have been ordered for use post procedure while hospitalized.s/p Joint replacement surgery - L ANGÉLICA. DVT prophylaxis - as directed by the primary surgical team. Recommend prophylaxis as per 2012 ACCP concensus guidelines. Encourage lower extremity venous return exercises. Hypertension (I10) - chronic condition present on admission, reasonable postoperative control. Patient's home prescription antihypertensive medicines have been ordered. Benign Prostatic Hypertrophy (N40.0) - chronic and present on admission, treated with home prescription medicines which have been reordered. Patien (more content not included)... Note Patient: ALLI THOMPSON MR N: ([id number] Age: 67 years Sex: Male : 1950 Associated Diagnoses: None Author: Kia Burden DO Supervising Physician Comments Documentation By: Attending Physician. Subjective Subjective: Patient participated in the evaluation: Yes. Nausea: not present. Vomiting: not present. Pain: acceptable pain control. Objective Objective: Vital Signs: Last Charted Vital Signs Temperature: 97.4 (10/29 17:32) Pulse: 101 (10/29 17:32) Respiration: 12 (10/29 17:32) BP: 131/80 (10/29 17:32) Pulse Ox: 95 (10/29 17:32) Oxygen Delivery: Nasal cannula (10/29 16:25) O2 Device Flow: 2 L/min Pain Score: 7 (10/29 17:00). Mental Status: alert and oriented. Postoperative hydration: adequate. Assessment Assessment: Post anesthetic condition: no anesthetic complications, the patient is doing well, pain is adequately controlled. Airway patent: yes. Plan Plan: Postanesthesia Plan: post anesthetic surveillance concluded. Note Patient: ALLI THOMPSON MR N: [facility])-[id number] Age: 67 years Sex: Male : 1950 Associated Diagnoses: None Author: Kia Burden DO Supervising Physician Comments Documentation By: Attending Physician. Subjective Subjective: Patient participated in the evaluation: Yes. Nausea: not present. Vomiting: not present. Pain: acceptable pain control. Objective Objective: Vital Signs: Last Charted Vital Signs Temperature: 97.0 (04/15 14:28) Pulse: 93 (04/15 14:28) Respiration: 15 (04/15 14:28) BP: 148/85 (04/15 14:28) Activity: Awake (04/15 14:28) Pulse Ox: 100 (04/15 14:28) Oxygen Delivery: Nasal cannula (04/15 16:10) O2 Device Flow: 2 L/min Pain Score: 4 (04/15 15:36). Mental Status: alert and oriented. Postoperative hydration: adequate. Assessment Assessment: Post anesthetic condition: no anesthetic complications, the patient is doing well, pain is adequately controlled. Airway patent: yes. Plan Plan: Postanesthesia Plan: post anesthetic surveillance concluded. Assessments Diagnosis Cerebrovascular accident (CVA), unspecified mechanism (HCC) Note Patient: ALLI THOMPSON MR N: ([id number] Age: 67 years Sex: Male : 1950 Associated Diagnoses: None Author: Kendrick Sunshine MD Diagnosis DDD (degenerative disc disease), lumbar (XVT05-KE M51.36, Working, Medical). Plan S/P Lumbar Fusion - Pain controlled. Oral and IV pain medication ordered for postoperative pain management. DVT prophylaxis - as directed by the primary surgical team. Recommend prophylaxis as per 2012 ACCP concensus guidelines. Encourage lower extremity venous return exercises. Hypertension (I10) - chronic condition present on admission, reasonable postoperative control. Patient's home prescription antihypertensive medicines have been ordered. Benign Prostatic Hypertrophy (N40.0) - chronic and present on admission, treated with home prescription medicines which have been reordered. Patient will be at risk for and will need to be monitored closely for postoperative urinary retention. Hypertension (I10) - chronic condition p (more content not included)... Note Patient: ALLI THOMPSON MR N: [id number] Age: 67 years Sex: Male : 1950 Associated Diagnoses: None Author: Kendrick Sunshine MD Diagnosis Chronic osteoarthritis (ANX43-TD M19.90, Working, Medical). Plan Postoperative medical comanagement. I have ordered pain medicines including IV opiates, home prescription medications have been reviewed and appropriate medicines have been ordered for use post procedure while hospitalized.s/p Joint replacement surgery - L ANGÉLICA. DVT prophylaxis - as directed by the primary surgical team. Recommend prophylaxis as per 2012 ACCP concensus guidelines. Encourage lower extremity venous return exercises. Hypertension (I10) - chronic condition present on admission, reasonable postoperative control. Patient's home prescription antihypertensive medicines have been ordered. Benign Prostatic Hypertrophy (N40.0) - chronic and present on admission, treated with home prescription medicines which have been reordered. Patien (more content not included)... Procedure Findings Note Patient: ALLI THOMPSON MR N: ([id number] Age: 67 years Sex: Male : 1950 Associated Diagnoses: None Author: Kia Burden DO Supervising Physician Comments Documentation By: Attending Physician. Subjective Subjective: Patient participated in the evaluation: Yes. Nausea: not present. Vomiting: not present. Pain: acceptable pain control. Objective Objective: Vital Signs: Last Charted Vital Signs Temperature: 97.4 (10/29 17:32) Pulse: 101 (10/29 17:32) Respiration: 12 (10/29 17:32) BP: 131/80 (10/29 17:32) Pulse Ox: 95 (10/29 17:32) Oxygen Delivery: Nasal cannula (10/29 16:25) O2 Device Flow: 2 L/min Pain Score: 7 (10/29 17:00). Mental Status: alert and oriented. Postoperative hydration: adequate. Assessment Assessment: Post anesthetic condition: no anesthetic complications, the patient is doing well, pain is adequately controlled. Airway patent: yes. Plan Plan: Postanesthesia Plan: post anesthetic surveillance concluded. Note Patient: ALLI THOMPSON MR N: [id number] Age: 67 years Sex: Male : 1950 Associated Diagnoses: None Author: Kia Burden DO Supervising Physician Comments Documentation By: Attending Physician. Subjective Subjective: Patient participated in the evaluation: Yes. Nausea: not present. Vomiting: not present. Pain: acceptable pain control. Objective Objective: Vital Signs: Last Charted Vital Signs Temperature: 97.0 (04/15 14:28) Pulse: 93 (04/15 14:28) Respiration: 15 (04/15 14:28) BP: 148/85 (04/15 14:28) Activity: Awake (04/15 14:28) Pulse Ox: 100 (04/15 14:28) Oxygen Delivery: Nasal cannula (04/15 16:10) O2 Device Flow: 2 L/min Pain Score: 4 (04/15 15:36). Mental Status: alert and oriented. Postoperative hydration: adequate. Assessment Assessment: Post anesthetic condition: no anesthetic complications, the patient is doing well, pain is adequately controlled. Airway patent: yes. Plan Plan: Postanesthesia Plan: post anesthetic surveillance concluded. Reason for Referral Status Reason Specialty Diagnoses / Procedures Referred By Contact Referred To Contact Pending Review Pulmonology Diagnoses Cerebrovascular accident (CVA), unspecified mechanism (HCC) Gregorio Mehta MD [address] [address] Anai Green MD [address] [place] [address] Specialty Diagnoses / Procedures Referred By Contact Referred To Contact Gastroenterology Diagnoses Dysphagia, unspecified type Procedures EGD MN ESOPHAGOGASTRODUODENOSCOPY TRANSORAL DIAGNOSTIC MN EGD TRANSORAL BIOPSY SINGLE/MULTIPLE Casimiro Courtney DO [address] [facility], [facility] [address] [place] [address] Referral ID Status Reason Start Date Expiration Date V isits Requested Visits Authorized [id number] Authorized 10/20/2023 10/19/2024 1 1 Specialty Diagnoses / Procedures Referred By Contac t Referred To Contact Radiology Diagnoses Elevated PSA Procedures MR prostate with jerri boundaries Alli Orona MD [address] [place] [phone] Referral ID Status Reason Start Date Expiration Date Visits Requested Visits Authorized [id number] Pending Review Perform Procedure 11/18/2023 11/17/2024 1 1 Referral ID Status Reason Start Date Expiration Date Visits Requested Visits Authorized [id number] Authorized Perform Procedure 11/18/2023 11/17/2024 1 1 Specialty Diagnoses / Procedures Referred By Contac t Referred To Contact Radiology Diagnoses Bradycardia Procedures CT cardiac scoring wo IV contrast Toby Henderson MD [address] [facility], [place] [address] Referral ID Status Reason Start Date Expiration Date Visits Requested Visits Authorized [id number] Pending Review Perform Procedure 02/26/2024 02/25/2025 1 1 Specialty Diagnoses / Procedures Referred By Contac t Referred To Contact Radiology Diagnoses Elevated PSA Prostate cancer (Multi) Procedures NM bone whole body Alli Orona MD [address] [place] [phone] Referral ID Status Reason Start Date Expiration Date Visits Requested Visits Authorized [id number] Pending Review Perform Procedure 01/20/2024 01/19/2025 2 2 Specialty Diagnoses / Procedures Referred By Contac t Referred To Contact Cardiology Diagnoses Bradycardia Procedures Holter Or Event Geospatial Developer Toby Henderson MD [address] [facility], [place] [address] Referral ID Status Reason Start Date Expiration Date V isits Requested Visits Authorized [id number] Authorized 02/26/2024 02/25/2025 1 1 Specialty Diagnoses / Procedures Referred By Contac t Referred To Contact Diagnoses Prostate cancer (Multi) Alli Orona MD [address] [place] [phone] Referral ID Status Reason Start Date Expiration Date V isits Requested Visits Authorized [id number] Pending Review 02/10/2024 02/09/2025 1 1 Specialty Diagnoses / Procedures Referred By Contac t Referred To Contact Radiology Diagnoses Bradycardia Atherosclerosis of [place] coronary artery of [place] heart without angina pectoris Procedures Nuclear Stress Test CHG MYOCARDIAL SPECT MULTIPLE STUDIES Toby Henderson MD [address] [facility], [facility] [address] [place] [address] Referral ID Status Reason Start Date Expiration Date V isits Requested Visits Authorized [id number] Authorized 02/26/2024 02/25/2025 5 5 Specialty Diagnoses / Procedures Referred By Contac t Referred To Contact Diagnoses Mild cardiomegaly Procedures ECG 12 lead (Clinic Performed) Randolph Bernal MD [address] [place] [address] Referral ID Status Reason Start Date Expiration Date V isits Requested Visits Authorized [id number] Authorized 03/15/2024 03/15/2025 1 1 Referral ID Status Reason Start Date Expiration Date V isits Requested Visits Authorized [id number] Pending Review 02/26/2024 02/25/2025 1 1 Specialty Diagnoses / Procedures Referred By Contac t Referred To Contact Cardiology Diagnoses Bradycardia Atherosclerosis of [place] coronary artery of [place] heart without angina pectoris Procedures Transthoracic Echo Complete MN ECHO TTHRC R-T 2D W/WOM-MODE COMPL SPEC&COLR D Toby Henderson MD [address] [facility], [facility] [address] [place] [address] Referral ID Status Reason Start Date Expiration Date Visits Requested Visits Authorized [id number] Pending Review Perform Procedure 02/26/2024 02/25/2025 1 1 Referral ID Status Reason Start Date Expiration Date V isits Requested Visits Authorized [id number] Pending Review 02/26/2024 02/25/2025 5 5 Specialty Diagnoses / Procedures Referred By Contac t Referred To Contact Diagnoses Bradycardia Procedures ECG 12 lead (Clinic Performed) Toby Henderson MD [address] [place], [address] [place] [phone] Referral ID Status Reason Start Date Expiration Date V isits Requested Visits Authorized [id number] Authorized 02/26/2024 02/25/2025 1 1 Referral ID Status Reason Start Date Expiration Date Visits Requested Visits Authorized [id number] Authorized Perform Procedure 02/26/2024 02/25/2025 1 1 Referral ID Status Reason Start Date Expiration Date Visits Requested Visits Authorized [id number] Authorized Perform Procedure 01/20/2024 01/19/2025 2 2 Specialty Diagnoses / Procedures Referred By Contac t Referred To Contact Diagnoses Bradycardia Atherosclerosis of [place] coronary artery of [place] heart without angina pectoris Procedures Cardiology Interpretation Of Nuclear Stress - See Other Report For Nuclear Portion Toby Henderson MD [address], [address] [place] [id number] [address] Referral ID Status Reason Start Date Expiration Date V isits Requested Visits Authorized [id number] Authorized 03/08/2024 03/08/2025 1 1 Instructions * Patient Instructions* Gregorio Mehta MD - 01/04/2020 1:17 PM EDT Continue aspirin 81 mg daily and Plavix 75 mg daily for at least a month after your stroke and thenswitch to aspirin 81 mg daily together with your Lipitor 40 mg daily for stroke prevention. Therapy, regular exercise, weight loss, and fall precautions. Goal total cholesterol is less than 200, triglyceride less than 150, and LDL less than 70. Continue antihypertensive agent and low-sodium diet. Monitor blood pressure regularly. Goal blood pressure is 120/80. Continue management of diabetes carbohydrate diet with a goal hemoglobin A1c of less than 7. We will send you for sleep study looking for any sleep apnea. documented in this encounter History of Present Illness * Gregorio Mehta MD - 01/04/2020 1:00 PM EDT Subjective Patient ID: Alli Thompson is a 69 y.o. male. Cerebrovascular Accident This is a new problem. The current episode started 1 to 4 weeks ago. The problem occurs constantly.The problem has been gradually improving. Associated symptoms include weakness. Pertinent negativesinclude no chest pain, coughing, headaches or numbness. Nothing aggravates the symptoms. Patient is a 69-year-old left-handed gentleman who came with his for neurological evaluation. He was referred because of stroke. His symptoms started 2 weeks ago were and he woke up with sudden onset of slurred speech. The following day he noticed the right side to be weak. He deniesany numbness, headache, visual symptoms, fall or head injury. No history of seizure or previous TIAor stroke. He was seen and evaluated at [facility] in [place]. Patient suffered a left pontine ischemic stroke presenting with right hemiparesis on December 2019. CT of the head showed no bleeding. Carotid Doppler was reportedly unremarkable. 2D echo showed no clotsor thrombus. He was placed on dual antiplatelet therapy and loaded with Plavix 300 mg. Lipitor 40 mg daily was started. Past medical history include hypertension, hyperlipidemia, diabetes, chronic low back pain, spinal stenosis, BPH, tinnitus and history of nephrolithiasis. No alcohol, tobacco, recreational drug use. Family history is negative for stroke. The following portions of the patient's history were reviewed and updated as appropriate: allergies, current medications, past family history, past medical history, past social history, past surgicalhistory and problem list. Review of Systems Respiratory: Negative for cough. Cardiovascular: Negative for chest pain. Neurological: Positive for weakness. Negative for numbness and headaches. All systems reviewed and negative except pertinent positives and negatives documented in the HPI and below. Objective Neurologic Exam Mental Status Oriented to person, place, and time. Attention: normal. Speech: speech is normal Level of consciousness: alert Knowledge: good. Normal comprehension. Cranial Nerves CN II Visual eli full to confrontation. CN III, IV, Pupils are equal, round, and reactive to light. Extraocular motions are normal. CN V Facial sensation intact. Right facial sensation deficit: none Left facial sensation deficit: none CN VII Facial expression full, symmetric. Right facial weakness: none Left facial weakness: none CN VIII CN VIII normal. Hearing: intact CN IX, X CN IX normal. CN X normal. Palate: symmetric CN XI CN XI normal. CN XII CN XII normal. Tongue deviation: none Motor Exam Muscle bulk: normal Overall muscle tone: normal Right arm pronator drift: absent Left arm pronator drift: absent Strength Strength 5/5 throughout. Right neck flexion: 5/5 Left neck flexion: 5/5 Right neck extension: 5/5 Left neck extension: 5/5 Right deltoid: 4/5 Left deltoid: 5/5 Right biceps: 3/5 Left biceps: 5/5 Right triceps: 4/5 Left triceps: 5/5 Right wrist flexion: 4/5 Left wrist flexion: 5/5 Right wrist extension: 4/5 Left wrist extension: 5/5 Right interossei: 4/5 Left interossei: 5/5 Right iliopsoas: 3/5 Left iliopsoas: 5/5 Right quadriceps: 4/5 Left quadriceps: 5/5 Right hamstrin/5 Left hamstrin/5 Right glutei: 4/5 Left glutei: 5/5 Right anterior tibial: 4/5 Left anterior tibial: 5/5 Right posterior tibial: 4/5 Left posterior tibial: 5/5 Right peroneal: 4/5 Left peroneal: 5/5 Right gastroc: 4/5 Left gastroc: 5/5 Sensory Exam Light touch normal. Vibration normal. Proprioception normal. Pinprick normal. Gait, Coordination, and Reflexes Gait Gait: spastic Coordination Finger to nose coordination: normal Tremor Resting tremor: absent Intention tremor: absent Action tremor: absent Reflexes Right brachioradialis: 2+ Left brachioradialis: 2+ Right biceps: 2+ Left biceps: 2+ Right triceps: 2+ Left triceps: 2+ Right patellar: 2+ Left patellar: 2+ Right achilles: 2+ Left achilles: 2+ Right plantar: normal Left plantar: normal Right ankle clonus: absent Left ankle clonus: absent Physical Exam Vitals signs and nursing note reviewed. Constitutional: Appearance: He is well-developed. HENT: Head: Normocephalic and atraumatic. Eyes: General: Lids are normal. Extraocular Movements: EOM normal. Conjunctiva/sclera: Conjunctivae normal. Pupils: Pupils are equal, round, and reactive to light. Neck: Musculoskeletal: Normal range of motion and neck supple. Vascular: No carotid bruit. Trachea: Phonation normal. Cardiovascular: Rate and Rhythm: Normal rate and regular rhythm. Pulses: Normal pulses. Pulmonary: Effort: Pulmonary effort is normal. Breath sounds: Normal breath sounds. Abdominal: General: Bowel sounds are normal. Palpations: Abdomen is soft. Musculoskeletal: Normal range of motion. Skin: General: Skin is warm and dry. Neurological: Mental Status: He is alert and oriented to person, place, and time. He is not disoriented. Cranial Nerves: No cranial nerve deficit. Sensory: No sensory deficit. Motor: No tremor, atrophy or abnormal muscle tone. Coordination: Coordination normal. Vfclxj-Alto-Qnityz Test normal. Gait: Gait normal. Deep Tendon Reflexes: Strength normal and reflexes are normal and symmetric. Reflex Scores: Tricep reflexes are 2+ on the right side and 2+ on the left side. Bicep reflexes are 2+ on the right side and 2+ on the left side. Brachioradialis reflexes are 2+ on the right side and 2+ on the left side. Patellar reflexes are 2+ on the right side and 2+ on the left side. Achilles reflexes are 2+ on the right side and 2+ on the left side. Comments: MMSE: 30/30 Patient is overweight. No carotid bruit or cardiac murmur. Pulses are 2+ symmetrically. Speech is fluent and is spontaneous. Very subtle slight decrease in right nasolabial fold. Facial sensation is intact. Language is intact. Gross strength is 4/5 for the right upper and lower extremity with 3/5 biceps and knee flexion. Slight increase in tone with normal muscle bulk. Sensory is intact to primary modalities. Psychiatric: Speech: Speech normal. Behavior: Behavior normal. Assessment/Plan: Patient suffered a left pontine ischemic stroke presenting with dysarthria and right-sided weaknessaround the second week of December 2019. No previous history of TIA or stroke. CT of the head showed nobleeding. He was placed on dual antiplatelet therapy for stroke prevention. He was not taking any antiplatelet agent prior to hospitalization. He has history of chronic right shoulder dysfunction. His cerebrovascular risk factor include age, gender, hypertension, diabetes, hyperlipidemia. Suggestion: Continue dual antiplatelet therapy with aspirin 81 mg daily and Plavix 75 mg daily for at least a month after his stroke and then switch to monotherapy with aspirin 81 mg daily and Lipitor 40 mg daily for stroke prevention. Monitor for any systemic or intracranial bleeding. Continue therapy and institute fall precautions. Antihypertensive agent and low-sodium diet. Monitor blood pressure regularly with a goal blood pressure 120/80. Low-cholesterol diet, exercise, and fall precautions. Continue management of diabetes and low carbohydrate diet. Monitor blood sugar regularly with a goal hemoglobin A1c of less than 7. We will send him for sleep study looking for any obstructive sleep apnea. Diagnostic impression, plans, and suggestions were explained and discussed. Records from the referring physician were reviewed. We discussed history of individual risk factor for stroke as well as ways to manage it. We also discussed different stroke symptoms so he can recognize it and go to the ERif symptoms recurs. Clinical imaging study/ labs/medical tests were ordered/reviewed. Indications, risk, complications, side effects and alternatives of medications/therapeutics were explained and discussed. Monitor closely for any untoward side effects or complications of medications. Questions and concerns were addressed. Please call or contact us for any problems. I will see him for follow-up visit as needed. Gómez ayala: Portions of this chart was created using Arvirago voice recognition software. Occasional wrong-word or sound-like substitutions may have occurred due to inherent limitations of the voice recognition software. Please read the chart carefully and recognize, using context, where the substitutions have occurred. Problem List Items Addressed This Visit None Visit Diagnoses Cerebrovascular accident (CVA), unspecified mechanism (HCC) Relevant Orders Ambulatory referral to Sleep Medicine documented in this encounter Chief Complaint 3 month ov, go over A1C, discuss sugar numbers.3 month f/u, go over A1C, L wrist pain x2 weeks.Yearly F/U w/PSA/KUB6 month med check, pt. c/o R leg feels swollen from the knee down, go over a1c.Yearly f/u w/ psamedicare annual wellness visit, no concernsmedicare annual wellness visit, no concerns3 month ov, go over labs.6 mo w/ psa6 mo w/ psapt c/o left lower groin burning pain, x 3 weeks, pt has increased stomach acid.6 mo w/ psa and kubProstate MRI results6 mo w/ psa and kub Chief Complaint and Reason for Visit Chief Complaint Admit Date PROSTATE CA August 03, 2024 9 :37am Space OAR and Gold Markers Placement November 30, 2024 5:49am Reason for Visit Admit Date Primary malignant neoplasm o f prostate with high risk of recurrence due to August 03, 2024 9:37am Additional Source Comments (unrecognized sect ion and content) No Status Records FoundNo Status Records FoundNo Status Records FoundNo Status Records FoundNo Status Records FoundNo Status Records FoundNo Status Records FoundNo Status Records FoundNo Status Records FoundNo Status Records FoundNo Status Records FoundNo Status Records FoundNo Status Records FoundNo Status Records Found INFORMATION SOURCE (unrecogn ized section and content) DATE CREATED AUTHOR 05/19/2018 [facility] DATE CREATED AUTHOR AUTHOR'S ORGANIZ ATION 03/11/2019 [facility] DATE CREATED AUTHOR AUTHOR'S ORGANIZ ATION 01/26/2020 [facility] DATE CREATED AUTHOR AUTHOR'S ORGANIZ ATION 12/13/2022 [facility] DATE CREATED AUTHOR AUTHOR'S ORGANIZ ATION 03/27/2023 [facility] DATE CREATED AUTHOR AUTHOR'S ORGANIZ ATION 04/08/2024 [facility] DATE CREATED AUTHOR AUTHOR'S ORGANIZ ATION 07/26/2024 [facility] DATE CREATED AUTHOR AUTHOR'S ORGANIZ ATION 07/30/2024 [facility] DATE CREATED AUTHOR AUTHOR'S ORGANIZ ATION 09/05/2024 [facility] DATE CREATED AUTHOR AUTHOR'S ORGANIZ ATION 11/16/2024 [facility] DATE CREATED AUTHOR AUTHOR'S ORGANIZ ATION 11/30/2024 [facility] DATE CREATED AUTHOR AUTHOR'S ORGANIZ ATION 12/02/2024 [facility] DATE CREATED AUTHOR AUTHOR'S ORGANIZ ATION 12/05/2024 [facility] DATE CREATED AUTHOR AUTHOR'S ORGANIZ ATION 12/20/2024 [facility] Reason for Visit (unrecogniz ed section and content) Reason Comments Cerebrovascular Accident Had a stroke tw o weeks ago. Denies any issues with memory, vision, or swallowing. Does have right sided weakness and currently has to use a walker to ambulate. Did not have to use a walker before the CVA. Did have some speech issues which has improved but when gets tired his speech will become a little slurred. Status Reason Specialty Diagnoses / Procedures Referred By Contact Referred To Contact Closed Specialty Services Required/Patient' s Best Interest Neurology Diagnoses Cerebrovascular accident (CVA), unspecified mechanism (HCC) Alan Whiteside MD [address] [place] [address] Gregorio Mehta MD [address] [address] Reason Comments Glaucoma Suspect Evaluation Diabetes Reason Comments [id number] Reason Comments Diabetes Glaucoma Suspect Evaluation Cataract Evaluation Reason Comments Optic Disc Hemorrhage Right Eye Non-insulin Dependent Diabetes Mellitus Patient is now diet-controlled. Patient states blood sugar was 100 this morning. HbA1c: 5.3 Reason Comments Follow-up ER for dizziness and fall, needs to see Gastro and Cardiology Specialty Diagnoses / Procedures Referred By Louie church Referred To Contact Diagnoses Dysphagia, unspecified Procedures MN ESOPHAGOGASTRODUODENOSCOPY TRANSORAL DIAGNOSTIC MN EGD TRANSORAL BIOPSY SINGLE/MULTIPLE [id number] [address] [facility] [address] [place] [address] [phone] Referral ID Status Reason Start Date Expiration Date Visits Re quested Visits Authorized [id number] 1 1 Reason Comments 6 month with psa Specialty Diagnoses / Procedures Referred By Louie church Referred To Contact Radiology Diagnoses Elevated PSA Procedures MR prostate with jerri boundaries Alli Orona MD [address] [place] [address] Referral ID Status Reason Start Date Expiration Date Visits Requested Visits Authorized [id number] Authorized Perform Procedure 11/18/2023 11/17/2024 1 1 Reason Comments MRI RESULTS Reason Comments Medicare Annual Wellness Visit [facility] PT is here today for an AWV. Is having a prostate biopsy December 28. PSA keeps rising. They did an MRI on his prostate. This is not his first one. Would like to talk about medication. 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 Diabetes Reason Comments Consult Specialty Diagnoses / Procedures Referred By Louie church Referred To Contact Cardiothoracic Surgery / Cardiac Surgery Diagnoses Coronary artery disease involving [place] coronary artery of [place] heart, unspecified whether angina present Flavia Noland, EDITORIAL DIRECTOR-[employer] [address] [facility] Foundation, [facility] [address] [place] [address] Nusrat Morgan MD [address] [facility] [address] [place] [address] Referral ID Status Reason Start Date Expiration Date Visits Requested Visits Authorized [id number] Authorized Specialty Services Required 03/25/2024 03/25/2025 1 1 Reason Comments Glaucoma Suspect Evaluation Hemorrhage of optic disc Follow up right eye Reason Comments Chest Pain To ED per wheelchair c/o R side CP while driving home from [facility] where he had a pacemaker implanted yesterday. Pt reports that he got sweaty and had some blurry vision as well. EKG done at Reason Comments Syncope ED follow up- bradyc ardia/pacemakerDr. Bernal pt Specialty Diagnoses / Procedures Referred By Louie t Referred To Contact Diagnoses S/P placement of cardiac pacemaker Procedures ECG 12 lead (Clinic Performed) Flavia Noland APRN-GOODS LAYER [address] [facility], [facility] 2 [place] [address] Phone: tel: fax: Referral ID Status Reason Start Date Expiration Date V isits Requested Visits Authorized [id number] Authorized 05/05/2024 05/05/2025 1 1 Reason Comments 3 MONTH WITH psa Reason Comments Floaters Left Eye Reason Comments 3 month follow up Specialty Diagnoses / Procedures Referred By Louie t Referred To Contact Diagnoses Elevated PSA Elevated PSA [R97.20] Procedures CHG US GUIDANCE NEEDLE PLACEMENT IMG S&I MN PROSTATE NEEDLE BIOPSY ANY APPROACH CHG US TRANSRECTAL Ultrasound guidance for Prostate Fusion Bx Biopsy Prostate with Navigation Ultrasonography Transrectal Prostate lAli Ornoa MD [address] [place] [address] [address] Referral ID Status Reason Start Date Expiration Date Visits Re quested Visits Authorized [id number] 1 1 Specialty Diagnoses / Procedures Referred By Contac t Referred To Contact Radiology Diagnoses Bradycardia Procedures CT cardiac scoring wo IV contrast Toby Henderson MD [address] [facility], [address] [address] Referral ID Status Reason Start Date Expiration Date Visits Requested Visits Authorized [id number] Pending Review Perform Procedure 02/26/2024 02/25/2025 1 1 Reason Comments Prostate Cancer Reason Comments Follow-up PT is here today for 2 month FUV. Did get his BMP done. Reports he is did some changes to meds that he would like to go over this with PCP. Reports he is still doing the half of the 25 mg of the hydrochlorothiazide/Triamterene in half making it 12.5 and he thinks he's taking 18.5 of the triamterene. reports he picked up the new pills but has not started them. He reports he did not start the triamterene by it self. He still doing the combo med which he is cutting in half. Specialty Diagnoses / Procedures Referred By Contac t Referred To Contact Cardiology Diagnoses Bradycardia Procedures Holter Or Event Geospatial Developer Toby Henderson MD [address] [facility], [address] [address] Referral ID Status Reason Start Date Expiration Date V isits Requested Visits Authorized [id number] Authorized 02/26/2024 02/25/2025 1 1 Specialty Diagnoses / Procedures Referred By Contac t Referred To Contact Radiology Diagnoses Bradycardia Atherosclerosis of [place] coronary artery of [place] heart without angina pectoris Procedures Nuclear Stress Test CHG MYOCARDIAL SPECT MULTIPLE STUDIES Toby Henderson MD [address] [facility], [facility] [address] [place] [address] Referral ID Status Reason Start Date Expiration Date V isits Requested Visits Authorized [id number] Authorized 02/26/2024 02/25/2025 5 5 Reason Comments Follow-up Cath Specialty Diagnoses / Procedures Referred By Contac t Referred To Contact Radiology Diagnoses Elevated PSA Prostate cancer (Multi) Procedures NM bone whole body Alli Orona MD [address] [place] [address] Referral ID Status Reason Start Date Expiration Date Visits Requested Visits Authorized [id number] Authorized Perform Procedure 01/20/2024 01/19/2025 2 2 Reason Comments Establish Care New patient to [facility] for pacemaker eval. EKG done in office today. Specialty Diagnoses / Procedures Referred By Contac t Referred To Contact Diagnoses Mild cardiomegaly Procedures ECG 12 lead (Clinic Performed) Randolph Bernal MD [address], [place] [address] [place] [address] Referral ID Status Reason Start Date Expiration Date V isits Requested Visits Authorized [id number] Authorized 03/15/2024 03/15/2025 1 1 Reason Comments New Patient Visit Bradycardia. SOB on exertion Specialty Diagnoses / Procedures Referred By Louie t Referred To Contact Cardiology Diagnoses Bradycardia Segundo Malloy MD MPH [address] [facility], [place] [address] [place] [phone] Toby Henderson MD [address] [facility], [facility] [address] [place] [phone] Referral ID Status Reason Start Date Expiration Date Visits Requested Visits Authorized [id number] Authorized Specialty Services Required 02/19/2024 02/18/2025 1 1 Specialty Diagnoses / Procedures Referred By Hortenciaac t Referred To Contact Cardiology Diagnoses Bradycardia Atherosclerosis of [place] coronary artery of [place] heart without angina pectoris Procedures Transthoracic Echo Complete MN ECHO TTHRC R-T 2D W/WOM-MODE COMPL SPEC&COLR D Toby Henderson MD [address] [facility], [facility] [address] [place] [phone] Referral ID Status Reason Start Date Expiration Date Visits Requested Visits Authorized [id number] Authorized Perform Procedure 02/26/2024 02/25/2025 1 1 Reason Comments 6 mth ov Would like referral PT Medicare Annual Wellness Visit Subsequen t Reason Comments Glaucoma Suspect Follow Up Epiretinal Membrane Follow Up Reason Comments 3 month with PSA Reason Comments PPM f/u Specialty Diagnoses / Procedures Referred By Contac t Referred To Contact Diagnoses S/P placement of cardiac pacemaker Procedures ECG 12 lead (Clinic Performed) Randolph Bernal MD [address], [facility] [address] [place] [address] Phone: tel: fax: Referral ID Status Reason Start Date Expiration Date V isits Requested Visits Authorized [id number] Authorized 08/02/2024 08/02/2025 1 1 Reason Comments 1 month with lupron Specialty Diagnoses / Procedures Referred By Louie church Referred To Contact Diagnoses Prostate cancer (Multi) Alli Orona MD [address] [place] [address] Phone: tel: fax: Referral ID Status Reason Start Date Expiration Date V isits Requested Visits Authorized [id number] Pending Review 08/17/2024 08/17/2025 1 1 Reason Comments CYSTTOSCOPY Specialty Diagnoses / Procedures Referred By Louie church Referred To Contact Urology Diagnoses Frequency of micturition Procedures MN CYSTOURETHROSCOPY [facility] [address] [facility] [address] [place] [address] Phone: tel: fax: Alli Orona MD [address] [place] [address] Phone: tel: fax: Referral ID Status Reason Start Date Expiration Date V isits Requested Visits Authorized [id number] Authorized 08/24/2024 08/24/2025 1 1 Reason Comments Follow-up 6 mo follow up, pt d enies shortness of breath, pt denies chest pain, pt denies fatigue, and dizziness. Source Comments (unrecognize d section and content) In the event this informatio n is protected by the Federal Confidentiality of Alcohol and Drug Abuse Patient Records regulations: The Federal rules restrict any use of the information to criminally investigate or prosecute any alcohol or drug abuse patient.Uk HealthcareIn the event this information is protected by the Federal Confidentiality of Alcohol and Drug Abuse Patient Records regulations: The Federal rules restrict any use of the information to criminally investigate or prosecute any alcohol or drug abuse patient.Uk HealthcareIn the event this information is protected by the Federal Confidentiality of Alcohol and Drug Abuse Patient Records regulations: The Federal rules restrict any use of the information to criminally investigate or prosecute any alcohol or drug abuse patient.Uk HealthcareIn the event this information is protected by the Federal Confidentiality of Alcohol and Drug Abuse Patient Records regulations: The Federal rules restrict any use of the information to criminally investigate or prosecute any alcohol or drug abuse patient.Uk HealthcareIn the event this information is protected by the Federal Confidentiality of Alcohol and Drug Abuse Patient Records regulations: The Federal rules restrict any use of the information to criminally investigate or prosecute any alcohol or drug abuse patient.Uk HealthcareIn the event this information is protected by the Federal Confidentiality of Alcohol and Drug Abuse Patient Records regulations: The Federal rules restrict any use of the information to criminally investigate or prosecute any alcohol or drug abuse patient.Uk HealthcareIn the event this information is protected by the Federal Confidentiality of Alcohol and Drug Abuse Patient Records regulations: The Federal rules restrict any use of the information to criminally investigate or prosecute any alcohol or drug abuse patient.Uk HealthcareIn the event this information is protected by the Federal Confidentiality of Alcohol and Drug Abuse Patient Records regulations: The Federal rules restrict any use of the information to criminally investigate or prosecute any alcohol or drug abuse patient.[facility] Care Teams (unrecognized sec tion and content) Dishcloth Folder Relationship Specialty Start Date End Date Segundo Malloy [address] [place] [address] [place] [phone] PCP - General Family Medicine 08/16/20 Dishcloth Folder Relationship Specialty Start Date End Date Segundo Malloy MD MPH [address] [facility], [place] [address] [place] [phone] PCP - General 03/20/20 Babs Moreno DO [address] [facility] Phys[facility] [place] [phone] PCP - [employer] Medicare Advantage PCP 07/06/22 Dishcloth Folder Relationship Specialty Start Date End Date Segundo Malloy MD MPH [address] [facility], [place] [address] [place] [address] PCP - General 03/20/20 Babs Moreno DO [address] [facility] [place] [phone] PCP - [employer] Medicare Advantage PCP 07/06/22 Dishcloth Folder Relationship Specialty Start Date End Date Segundo Malloy MD [address]EN [facility][note 2], [facility] [address] [place] [phone] PCP - General Family Medicine 08/16/20 Dishcloth Folder Relationship Specialty Start Date End Date Segundo Malloy MD [address] [facility] [place] [address] [place] [phone] PCP - General Family Medicine 08/16/20 Max Mccann II OD [address] [place], [place] [address] Optometry 10/05/23 Dishcloth Folder Relationship Specialty Start Date End Date Segundo Malloy MD MPH [address] [facility], [place] [address] [place] [address] PCP - General 03/20/20 Babs Moreno DO [address] [facility] [place] [address] PCP - [employer] Medicare Advantage PCP 07/06/22 Dishcloth Folder Relationship Specialty Start Date End Date Segundo Malloy MD MPH [address] [facility] [place] [address] [place] [address] PCP - General 03/20/20 Babs Moreno, DO [address] [facility] [place] [address] PCP - [employer] Medicare Advantage PCP 07/06/22 Dishcloth Folder Relationship Specialty Start Date End Date Segundo Malloy MD MPH [address] [facility] [place] [address] [place] [address] PCP - General 03/20/20 Babs Moreno DO [address] [facility] [place] [address] PCP - [employer] Medicare Advantage PCP 07/06/22 Dishcloth Folder Relationship Specialty Start Date End Date Segundo Malloy MD MPH [address] [facility], [place] [address] [place] [address] PCP - General 03/20/20 Babs Moreno DO [address] [facility] [place] [address] PCP - [employer] Medicare Advantage PCP 07/06/22 Dishcloth Folder Relationship Specialty Start Date End Date Segundo Malloy MD MPH [address] [facility], [place] [phone] PCP - General 03/20/20 Babs Moreno DO [address] [facility] [place] [address] PCP - [employer] Medicare Advantage PCP 07/06/22 Dishcloth Folder Relationship Specialty Start Date End Date Segundo Malloy MD MPH [address] [facility], [place] [phone] PCP - General 03/20/20 Babs Moreno DO [address] [facility] [place] [address] PCP - [employer] Medicare Advantage PCP 07/06/22 Alli Orona MD [facility] [place] [address] Surgeon Urology 11/20/23 Dishcloth Folder Relationship Specialty Start Date End Date Segundo Malloy MD MPH [address] [facility], [address] [address] PCP - General 03/20/20 Babs Moreno DO [address] [facility] [place] [address] PCP - A[employer] Medicare Advantage PCP 07/06/22 Alli Orona MD [address] [place] [address] Surgeon Urology 11/20/23 Dishcloth Folder Relationship Specialty Start Date End Date Segundo Malloy MD MPH [address] [facility], [facility] [address] [place] [address] PCP - General 03/20/20 Babs Moreno DO [address] [facility] [place] [address] PCP - A[employer] Medicare Advantage PCP 07/06/22 Alli Orona MD [address] [place] [address] Surgeon Urology 11/20/23 Dishcloth Folder Relationship Specialty Start Date End Date Segundo Malloy MD [address] [facility], [place] [address] [place] [address] PCP - General Family Medicine 08/16/20 Max Mccann II, OD [address] [place] [address] Optometry 10/05/23 Dishcloth Folder Relationship Specialty Start Date End Date Babs Moreno DO [address] [facility] [place] [address] PCP - Aetna Medicare Advantage PCP 07/06/22 Donnell Mendoza MD [address] [facility], [place] [phone] PCP - General Family Medicine 03/16/24 Alli Orona MD [address] [place], [place] [phone] Surgeon Urology 11/20/23 Dishcloth Folder Relationship Specialty Start Date End Date Donnell Mendoza MD [address] [facility], [place] [phone] PCP - General Family Medicine 04/20/24 Max Mccann II OD [address] [place] [address] Optometry 10/05/23 Dishcloth Folder Relationship Specialty Start Date End Date Babs Moreno DO [address] [facility] [place] [address] PCP - Aetna Medicare Advantage PCP 07/06/22 Donnell Mendoza MD [address] [facility], [facility] [address] [place] [phone] PCP - General Family Medicine 03/16/24 Alli Orona MD [address] [place], [place] [phone] Surgeon Urology 11/20/23 Dishcloth Folder Relationship Specialty Start Date End Date Babs Moreno DO [address] [facility] [place] [address] PCP - Aetna Medicare Advantage PCP 07/06/22 Donnell Mendoza MD [address] [facility], [address] [address] PCP - General Family Medicine 03/16/24 Alli Orona MD [address] [place] [address] Surgeon Urology 11/20/23 Dishcloth Folder Relationship Specialty Start Date End Date Babs Moreno DO [address] [facility] [place] [address] PCP - Aetna Medicare Advantage PCP 07/06/22 Donnell Mendoza MD [address] [facility], [place] [phone] PCP - General Family Medicine 03/16/24 Alli Orona MD [address] [place] [address] Surgeon Urology 11/20/23 Dishcloth Folder Relationship Specialty Start Date End Date Babs Moreno DO [address] [facility] [place] [address] PCP - A[employer] Medicare Advantage PCP 07/06/22 Donnell Mendoza MD [address] [facility], [address] [address] PCP - General Family Medicine 03/16/24 Alli Orona MD [address] [place], [place] [phone] Surgeon Urology 11/20/23 Dishcloth Folder Relationship Specialty Start Date End Date Babs Moreno DO [address] [facility] [place] [address] PCP - Aetna Medicare Advantage PCP 07/06/22 Donnell Mendoza MD [address] [facility], [facility] [address] [place] [address] PCP - General Family Medicine 03/16/24 Alli Orona MD [address] [place] [address] Surgeon Urology 11/20/23 Dishcloth Folder Relationship Specialty Start Date End Date Babs Moreno DO [address] [facility] [place] [address] PCP - A[employer] Medicare Advantage PCP 07/06/22 Donnell Mendoza MD [address] [facility], [address] [address] PCP - General Family Medicine 03/16/24 Alli Orona MD [address] [place] [address] Surgeon Urology 11/20/23 Dishcloth Folder Relationship Specialty Start Date End Date Donnell Mendoza MD [address] [facility], [address] [address] PCP - General Family Medicine 04/20/24 Max Mccann II, OD [address] [place] [address] Optometry 10/05/23 Dishcloth Folder Relationship Specialty Start Date End Date Babs Moreno DO [address] [facility] [place] [address] PCP - Aetna Medicare Advantage PCP 07/06/22 Donnell Mendoza MD [address] [facility], [place] [address] [place] [address] PCP - General Family Medicine 03/16/24 Alli Orona MD [address] [place] [address] Surgeon Urology 11/20/23 Dishcloth Folder Relationship Specialty Start Date End Date Babs Moreno DO [address] [facility] [place] [address] PCP - Aetna Medicare Advantage PCP 07/06/22 Donnell Mendoza MD [address] [facility], [place] [address] [place] [phone] PCP - General Family Medicine 03/16/24 Alli Orona MD [address] [place] [address] Surgeon Urology 11/20/23 Dishcloth Folder Relationship Specialty Start Date End Date Segundo Malloy MD MPH [address]asha [facility][note 2], [place] [address] [place] [address] PCP - General 03/20/20 Babs Moreno DO [address] [facility] [place] [address] PCP - Aetna Medicare Advantage PCP 07/06/22 Alli Orona MD [address] [place] [address] Surgeon Urology 11/20/23 Dishcloth Folder Relationship Specialty Start Date End Date Babs Moreno DO [address] [facility] [place] [address] PCP - Aetna Medicare Advantage PCP 07/06/22 Donnell Mendoza MD [address] [facility], [facility] [address] [place] [address] PCP - General Family Medicine 03/16/24 Alli Orona MD [address] [place] [address] Surgeon Urology 11/20/23 Dishcloth Folder Relationship Specialty Start Date End Date Segundo Malloy MD MPH [address] [facility], [facility] [address] [place] [address] PCP - General 03/20/20 Babs Moreno DO [address] [facility] [place] [address] PCP - A[employer]na Medicare Advantage PCP 07/06/22 Alli Orona MD [address] [place], [place] [phone] Surgeon Urology 11/20/23 Dishcloth Folder Relationship Specialty Start Date End Date Segundo Malloy MD MPH [address] Lasha [facility][note 2], [facility] [address] [place] [address] PCP - General 03/20/20 Babs Moreno DO [address] [facility] [place] [address] PCP - Aetna Medicare Advantage PCP 07/06/22 Alli Orona MD [facility]3 [place], [place] [address]57[address] Surgeon Urology 11/20/23 Dishcloth Folder Relationship Specialty Start Date End Date Segundo Malloy MD MPH PCP - General 03/20/20 Babs Moreno DO [address] [facility] [place] [address] PCP - Aet[employer] Medicare Advantage PCP 07/06/22 Alli Orona MD [address] [place] [address] Surgeon Urology 11/20/23 Dishcloth Folder Relationship Specialty Start Date End Date Segundo Malloy MD MPH [address] Allen [facility][note 2], [address] [address] PCP - General 03/20/20 Babs Moreno DO [address] [facility] [place] [address] PCP - Aetna Medicare Advantage PCP 07/06/22 Alli Orona MD [address] [place], [place] [phone] Surgeon Urology 11/20/23 Dishcloth Folder Relationship Specialty Start Date End Date Segundo Malloy MD MPH PCP - General 03/20/20 Babs Moreno DO [address] [facility] [place] [address] PCP - Aetna Medicare Advantage PCP 07/06/22 Alli Orona MD [address] [place] [address] Surgeon Urology 11/20/23 Dishcloth Folder Relationship Specialty Start Date End Date Babs Moreno DO [address] [facility] [place] [address] PCP - Aetna Medicare Advantage PCP 07/06/22 Donnell Mendoza MD [address] [facility], [facility] [address] [place] [address] PCP - General Family Medicine 03/16/24 Alli Orona MD [address] [place] [address] Surgeon Urology 11/20/23 Dishcloth Folder Relationship Specialty Start Date End Date Segundo Malloy MD MPH PCP - General 03/20/20 Babs Moreno DO [address] [facility] [place] [address] PCP - Aetna Medicare Advantage PCP 07/06/22 Alli Orona MD [address] [place] [address] Surgeon Urology 11/20/23 Dishcloth Folder Relationship Specialty Start Date End Date Segundo Malloy MD MPH [address] [place] [facility][note 2], [address] [address] PCP - General 03/20/20 Babs Moreno DO [address] [facility] [place] [address] PCP - Aetna Medicare Advantage PCP 07/06/22 Alli Orona MD [address] [place] [address] Surgeon Urology 11/20/23 Dishcloth Folder Relationship Specialty Start Date End Date Segundo Malloy MD MPH PCP - General 03/20/20 Babs Moreno DO [address] [facility] [place] [address] PCP - A[employer] Medicare Advantage PCP 07/06/22 Alli Orona MD [address] [place] [address] Surgeon Urology 11/20/23 Dishcloth Folder Relationship Specialty Start Date End Date Segundo Malloy MD MPH [address] [facility], [facility] [address] [place] [address] PCP - General 03/20/20 Babs Moreno DO [address] [facility] [place] [address] PCP - A[employer] Medicare Advantage PCP 07/06/22 Alli Orona MD [address] [place], [place] [phone] Surgeon Urology 11/20/23 Dishcloth Folder Relationship Specialty Start Date End Date Segundo Malloy MD MPH [address] [facility], [facility] [address] [place] [address] PCP - General 03/20/20 Babs Moreno DO [address] [facility] [place] [address] PCP - A[employer] Medicare Advantage PCP 07/06/22 Alli Orona MD [address] [place] [address] Surgeon Urology 11/20/23 Dishcloth Folder Relationship Specialty Start Date End Date Segundo Malloy MD MPH PCP - General 03/20/20 Babs Moreno DO [address] [facility] [place] [address] PCP - [employer] Medicare Advantage PCP 07/06/22 Alli Orona MD [address] [place] [address] Surgeon Urology 11/20/23 Dishcloth Folder Relationship Specialty Start Date End Date Segundo Malloy MD MPH [address] [facility], [place] [address] [place] [address] PCP - General 03/20/20 Segundo Malloy MD MPH [address] [facility], [place] [address] [place] [address] PCP - Aetderek Medicare Advantage PCP 07/06/21 Dishcloth Folder Relationship Specialty Start Date End Date Donnell Mendoza MD [address] [facility], [place] [address] [place] [phone] PCP - General Family Medicine 04/20/24 Max Mccann II OD [address] [place] [address] Optometry 10/05/23 Dishcloth Folder Relationship Specialty Start Date End Date Donnell Mendoza MD [address] [facility] [address] [place] [phone] PCP - General Family Medicine 04/20/24 Max Mccann II OD [address] [place] [address] Optometry 10/05/23 Dishcloth Folder Relationship Specialty Start Date End Date Babs Moreno DO [address] [facility] [place] [address] PCP - [employer] Medicare Advantage PCP 07/06/22 Donnell Mendoza MD [address] [facility], [facility] [address] [place] [address] PCP - General Family Medicine 03/16/24 Alli Orona MD [address] [place], [place] [id number] Surgeon Urology 11/20/23 Dishcloth Folder Relationship Specialty Start Date End Date Babs Moreno DO [address] [place] [place] [address] PCP - [employer] Medicare Advantage PCP 07/06/22 Donnell Mendoza MD [address] [facility], [facility] [address] [id number] PCP - General Family Medicine 03/16/24 Alli Orona MD [address] [place] [address] Surgeon Urology 11/20/23 Dishcloth Folder Relationship Specialty Start Date End Date Babs Moreno DO [address] [facility] [place] [address] PCP - [employer] Medicare Advantage PCP 07/06/22 Donnell Mendoza MD [address] [facility], [address] [address] PCP - General Family Medicine 03/16/24 Alli Orona MD [address] [place], [place] [id number] Surgeon Urology 11/20/23 Dishcloth Folder Relationship Specialty Start Date End Date Babs Moreno DO [address] [facility] [place] [address] PCP - [employer] Medicare Advantage PCP 07/06/22 Donnell Mendoza MD [facility] [address] [facility], [place] [phone] PCP - General Family Medicine 03/16/24 Alli Orona MD [facility] [phone] Surgeon Urology 11/20/23 Dishcloth Folder Relationship Specialty Start Date End Date Babs Moreno DO [address] [place] [address] PCP - [employer] Medicare Advantage PCP 07/06/22 Donnell Mendoza MD [facility] [address] [facility], [place] [phone] PCP - General Family Medicine 03/16/24 Alli Orona MD [address] [place], [place] [phone] Surgeon Urology 11/20/23 Team Status: Active Member Role Status Dates Dr. Donnell Mendoza MD Primary Care Provider Active Team Status: Inactive Member Role Status Dates Dr. Dorian Ibrahim DO Attending Provider Active Start: August 03, 2024 End: August 03, 2024 Dr. Donnell Mendoza MD Primary Care Provider Active Start: August 03, 2024 End: August 03, 2024 Dr. Alli Orona II, MD Referring Provider Active S tart: August 03, 2024 End: August 03, 2024 Team Status: Inactive Member Role Status Dates Dr. Donnell Mendoza MD Primary Care Provider Active Start: November 30, 2024 End: November 30, 2024 Dr. Cheko Bhatia MD Attending Provider Active Start: November 30, 2024 End: November 30, 2024 Dr. Cheko Bhatia MD Referring Provider Active Start: November 30, 2024 End: November 30, 2024 Active Administered Medications - up to 3 most recent administrations Administered Medications (un recognized section and content) Medication Order MAR Action Action Date Dose Rate Site PHENYLephrine 2.5 % 1 Drop (AK-DILATE, SUSAN-SYNEPHRINE) 1 Drop, BOTH EYES, DIRECTED, Starting on Thu10/05/23 at 0930, Until Thu10/05/23 at 2128, Administer for dilation PROTECT FROM LIGHT Given 10/05/2023 9:30 AM EDT 1 Drop proparacaine 0.5 % 1 Drop (ALCAINE) 1 Drop, BOTH EYES, DIRECTED, Starting on Thu10/05/23 at 0930, Until Thu10/05/23 at 2128, Administer for pneumo tonometry, tonopen tonometry, or pachymetry. In the event of a proparacaine shortage, administer tetracaine 0.5% ophthalmic drops 1 drop in the left eye as directed for pneumo tonometry, tonopen tonometry, or pachymetry Given 10/05/2023 9:30 AM EDT 1 Drop tropicamide 1 % 1 Drop (MYDRIACYL) 1 Drop, BOTH EYES, DIRECTED, Starting on Thu10/05/23 at 0930, Until Thu10/05/23 at 2128, Administer for dilation Given 10/05/2023 9:30 AM EDT 1 Drop Scheduled Active and Recently Administ ered Medications (unrecognized section and content) Medication Order 05/01/2024 05/02/2024 05/03/2024 amLODIPine (Norvasc) tablet 5 mg 5 mg, oral, Daily, First dose on Thu05/02/24 at 2014 2047 (Given - Provider: Stella Godoy RN) 0925 (Given - Provider: Mamta Gilliam RN) aspirin EC tablet 81 mg 81 mg, oral, Daily, First dose on Thu05/03/24 at 0900, Do not crush, chew, or split. 0925 (Given - Provid er: Mamta Gilliam RN) atorvastatin (Lipitor) tablet 40 mg 40 mg, oral, Daily, First dose on Thu05/02/24 at 2014 2047 (Given - Provider: Stella Godoy RN) 0925 (Given - Provider: Mamta Gilliam RN) ceFAZolin (Ancef) 2 g in dextrose (iso) IV 100 mL (COMPLETED) 2 g, intravenous, Administer over 30 Minutes, Once, On Thu05/02/24 at 1345, For 1 dose, Preprocedure, Administer within 60 minutes prior to incision. premix bag, Dosing of this medication varies based on severity of illness. Does this patient have sepsis or concern for sepsis (probable or documented infection plus systemic manifestations of infection)? No, Suspected Indication (Select all that apply): Medical Prophylaxis, Indications: Medical Prophylaxis 1510 (New Bag - Provider: James James RN)1536 (Stopped - Provider: James James RN) insulin lispro injection 0-5 Units 0-5 Units, subcutaneous, 3 times daily (morning, midday, late afternoon), First dose on Thu05/02/24 at 1700, Do not hold when patient is not eating, continue order as scheduled for hyperglycemia management. Insulin Lispro Corrective Scale #1 Hypoglycemia protocol Call LIP unit(s) if Blood Glucose is between 0 - 70 mg/dL 0 unit(s) if Blood glucose is between 71-150 1 unit(s) if Blood glucose is between 151-200 2 unit(s) if Blood glucose is between 201-250 3 unit(s) if Blood glucose is between 251-300 4 unit(s) if Blood glucose is between 301-350 5 unit(s) if Blood glucose is between 351-400 If blood glucose is greater than 400 mg/dL, give max insulin per sliding scale AND then contact provider. 1700 (Due)1827 (MAR Hold - Provider: Automatic Transfer Provider - Reason: Unreviewed Transfer Orders) 0727 (MAR Unhold - Provider: Era aBilon, RAFA-GOODS LAYER)0800 (Not Given - Provider: Mamta Gilliam RN - Reason: See Provider Order)1144 (Not Given - Provider: Mamta Gilliam RN - Reason: Order parameters not met)1700 (Due) lisinopril tablet 40 mg 40 mg, oral, Daily, First dose on Thu05/02/24 at 2014 2047 (Given - Provider: Stella Godoy RN) 0925 (Given - Provider: Mamta Gilliam RN) triamterene-hydrochlorothiaz id (Maxzide-25) 37.5-25 mg per tablet 1 tablet 1 tablet, oral, Daily, First dose on Thu05/02/24 at 2014 2047 (Given - Provider: Stella Godoy, KITA) 0925 (Given - Provider: Mamta Gilliam RN) vancomycin 1,250 mg in D5W IV 250 mL (COMPLETED) 1,250 mg (rounded from 1,215 mg = 15 mg/kg 81 kg), intravenous, at 200 mL/hr, Administer over 75 Minutes, Once, On Thu05/03/24 at 0500, For 1 dose, Premix bag, Dosing of this medication varies based on severity of illness. Does this patient have sepsis or concern for sepsis (probable or documented infection plus systemic manifestations of infection)? No, Suspected Indication (Select all that apply): Surgical Prophylaxis, Indications: Surgical Prophylaxis 0550 (New Bag - Provider: Stella Godoy RN)0705 (Stopped - Provider: Mamta Gilliam RN) PRN Medication Order 05/01/2024 05/02/2024 05/03/2024 acetaminophen (Tylenol) oral liquid 650 mg(Linked Group 1) 650 mg, oral, Every 4 hours PRN, pain mild (1-3), first line, Starting on Thu05/02/24 at 1740, Phase II/On Unit, Give oral liquid per feeding tube if present or if patient prefers oral liquid over tablets. 1803 (See Alternative - Provider: Tiffany Becerra RN)2230 (See Alternative - Provider: Stella Godoy RN) acetaminophen (Tylenol) suppository 650 mg(Linked Group 1) 650 mg, rectal, Every 4 hours PRN, pain mild (1-3), first line, Starting on Thu05/02/24 at 1740, Phase II/On Unit, Give rectally if unable to administer by mouth or feeding tube., If ordered PRN for pain, nurse is permitted to administer this medication for higher pain scores based on patient preference? Yes 1803 (See Alternative - Provider: Tiffany Becerra RN)2230 (See Alternative - Provider: Stella Godoy, KITA) acetaminophen (Tylenol) tablet 650 mg(Linked Group 1) 650 mg, oral, Every 4 hours PRN, pain mild (1-3), first line, Starting on Thu05/02/24 at 1740, Phase II/On Unit, Administer tablet or oral liquid per patient preference., If ordered PRN for pain, nurse is permitted to administer this medication for higher pain scores based on patient preference? Yes 1803 (Given - Provider: Tiffany Becerra RN)2230 (Given - Provider: Stella Godoy RN) dextrose 50 % injection 12.5 g 12.5 g, intravenous, Every 15 min PRN, For blood glucose 41 to 70 mg/dL, Starting on Thu05/02/24 at 1626, May repeat until blood glucose level reaches 100 mg/dL or greater. Push 2 - 3 mL/minute if patient has secure IV access. 182 (SEP Hold - Provider: Automatic Transfer Provider - Reason: Unreviewed Transfer Orders) 07 ([facility] Unhold - Provider: STANFORD Reid) dextrose 50 % injection 25 g 25 g, intravenous, Every 15 min PRN, For blood glucose less than or equal to 40 mg/dL, Starting on Thu05/02/24 at 1626, May repeat until blood glucose level reaches 100 mg/dL or greater. Push 2 - 3 mL/minute if patient has secure IV access. 1827 ([facility] Hold - Provider: Automatic Transfer Provider - Reason: Unreviewed Transfer Orders) 07 ([facility] Unhold - Provider: STANFORD Reid) fentaNYL PF (Sublimaze) injection (CANCELED) As needed, Starting on Thu05/02/24 at 1513, Intraprocedure 1513 (Given - Provider: Bhavya Downing RN - Comment: given for sedation)1528 (Given - Provider: Bhavya Downing RN - Comment: given for sedation)1638 (Given - Provider: Bhavya Downing RN - Comment: given for sedation) glucagon (Glucagen) injection 1 mg 1 mg, intramuscular, Every 15 min PRN, blood glucose less than or equal to 40 mg/dL - see comments, For blood glucose less than or equal to 40 mg/dL and no IV access, Starting on Thu05/02/24 at 1626, Give until blood glucose is 100 mg/dL or greater. If patient DOES NOT HAVE secure IV access & patient is unconscious, NPO or is unable to eat or drink. 1827 ([facility] Hold - Provider: Automatic Transfer Provider - Reason: Unreviewed Transfer Orders) 07 ([facility] Unhold - Provider: STANFORD Reid) glucagon (Glucagen) injection 1 mg 1 mg, intramuscular, Every 15 min PRN, low blood sugar - see comments, For blood glucose less than or equal to 70 mg/dL and no IV access, Starting on Thu05/02/24 at 1626, Give until blood glucose is 100 mg/dL or greater. If patient DOES NOT HAVE secure IV access & patient is unconscious, NPO or is unable to eat or drink. 182 (SEP Hold - Provider: Automatic Transfer Provider - Reason: Unreviewed Transfer Orders) 07 ([facility] Unhold - Provider: STANFORD Reid) lidocaine (Xylocaine) 20 mg/mL (2 %) injection (CANCELED) As needed, Starting on Thu05/02/24 at 1528, Intraprocedure 1528 (Given - Provider: Randolph Bernal MD - Comment: left chest SQ for local anesthetic) midazolam (Versed) injection (CANCELED) As needed, Starting on Thu05/02/24 at 1512, Intraprocedure 1512 (Given - Provider: Bhavya Downing RN - Comment: given for sedation)1528 (Given - Provider: Bhavya Downing RN - Comment: given for sedation)1637 (Given - Provider: Bhavya Downing RN - Comment: given for sedation) naloxone (Narcan) injection 0.2 mg 0.2 mg, intravenous, Every 5 min PRN, respiratory depression, Starting on Thu05/02/24 at 1956, If respiratory rate is less than 8 breaths/minute or patient is difficult to arouse stop any narcotics and contact physician. Administer slow IV push. Repeat as ordered until patient's respiratory rate is greater than 12 breaths/minute. traMADol (Ultram) tablet 50 mg 50 mg, oral, Every 6 hours PRN, pain severe (7-10), first line, Starting on Thu05/02/24 at 1740, Phase II/On Unit, Max of 300 mg daily for patients > 75 years of age., If ordered PRN for pain, nurse is permitted to administer this medication for higher pain scores based on patient preference? Yes 926 (Given - Provid er: Mamta Gilliam RN) Linked Groups Order Group 1: acetaminophen (Tylenol) tablet 650 mgJump to med 650 mg, oral, Every 4 hours PRN, pain mild (1-3), first line, Starting on Thu05/02/24 at 1740, Phase II/On Unit, Administer tablet or oral liquid per patient preference., If ordered PRN for pain, nurse is permitted to administer this medication for higher pain scores based on patient preference? Yes Or acetaminophen (Tylenol) oral liquid 650 mgJump to med 650 mg, oral, Every 4 hours PRN, pain mild (1-3), first line, Starting on Thu05/02/24 at 1740, Phase II/On Unit, Give oral liquid per feeding tube if present or if patient prefers oral liquid over tablets. Or acetaminophen (Tylenol) suppository 650 mgJump to med 650 mg, rectal, Every 4 hours PRN, pain mild (1-3), first line, Starting on Thu05/02/24 at 1740, Phase II/On Unit, Give rectally if unable to administer by mouth or feeding tube., If ordered PRN for pain, nurse is permitted to administer this medication for higher pain scores based on patient preference? Yes Scheduled Medication Order 12/27/2023 12/28/2023 12/29/2023 acetaminophen (Tylenol) tablet 975 mg (COMPLETED) 975 mg, oral, Once, On Thu12/29/23 at 0630, For 1 dose, Preprocedure, Administer with small amount of water preoperatively., If ordered PRN for pain, nurse is permitted to administer this medication for higher pain scores based on patient preference? Yes 624 (Given - Provid er: Laury Condon RN) midazolam (Versed) injection 1 mg (COMPLETED) 1 mg, intravenous, Once, On Thu12/29/23 at 0630, For 1 dose, Preprocedure 0732 (Given - Provid er: Laury Condon RN) Continuous Medication Order 12/27/2023 12/28/2023 12/29/2023 lactated Ringer's infusion 50 mL/hr, intravenous, Continuous, Starting on Thu12/29/23 at 0630, Preprocedure 0625 (New Bag - Prov ider: Laury Condon RN) Scheduled Medication Order 03/23/2024 03/24/2024 03/25/2024 aspirin chewable tablet 81 mg 81 mg, oral, Once, On Thu03/25/24 at 0900, For 1 dose 0900 (Due) Continuous Medication Order 03/23/2024 03/24/2024 03/25/2024 sodium chloride 0.9% infusion 100 mL/hr, intravenous, Continuous, Starting on Thu03/25/24 at 1100, For 2 hours 1100 (Due) PRN Medication Order 03/23/2024 03/24/2024 03/25/2024 acetaminophen (Tylenol) tablet 650 mg 650 mg, oral, Every 6 hours PRN, pain mild (1-3), first line, pain moderate (4-6), first line, Starting on Thu03/25/24 at 1017, Recovery & On Unit, If inadequate response within 60 minutes, proceed to next-line agent for same PRN reason or contact provider if no further options ordered., If ordered PRN for pain, nurse is permitted to administer this medication for higher pain scores based on patient preference? Yes fentaNYL PF (Sublimaze) injection (CANCELED) As needed, Starting on Thu03/25/24 at 0956, Intraprocedure 0956 (Given - Provid er: Arash Diez RN - Comment: sedation; pain control) heparin 1,000 unit/mL injection (CANCELED) As needed, Starting on Thu03/25/24 at 0959, Intraprocedure 0959 (Given - Provid er: Toby Hudson MD - Comment: radial cocktail; 2-person verified) iohexol (OMNIPaque) 350 mg iodine/mL solution (CANCELED) As needed, Starting on Thu03/25/24 at 1009, Intraprocedure 1009 (Given - Provid er: Toby Hudson MD - Comment: OPACIFICATION) lidocaine (Xylocaine) 20 mg/mL (2 %) injection (CANCELED) As needed, Starting on Thu03/25/24 at 0957, Intraprocedure 0957 (Given - Provid er: Toby Hudson MD - Comment: numbing to RT wrist) midazolam (Versed) injection (CANCELED) As needed, Starting on Thu03/25/24 at 0956, Intraprocedure 0956 (Given - Provid er: Arash Diez RN - Comment: sedation; pain control) nitroglycerin in 5 % dextrose 10 mL syringe (CANCELED) As needed, Starting on Thu03/25/24 at 0959, Intraprocedure 0959 (Given - Provid er: Toby Hudson MD - Comment: radial cocktail) verapamil (Isoptin) injection (CANCELED) As needed, Starting on Thu03/25/24 at 0959, Intraprocedure 0959 (Given - Provid er: Toby Hudson MD - Comment: radial cocktail) FOR RECORDS PERTAINING TO PATIENTS WHO ARE OR HAVE BEEN ENROLLED IN A CHEMICAL DEPENDENCY/SUBSTANCEABUSE PROGRAM, SOME INFORMATION MAY BE OMITTED. This clinical summary was aggregated from multiple sources. Caution should be exercised in using it in the provision of clinical care. This summary normalizes information from multiple sources, and as a consequence, information in this document may materially change the coding, format and clinical context of patient data. In addition, data may be omitted in some cases. CLINICAL DECISIONS SHOULD BE BASED ON THE PRIMARY CLINICAL RECORDS. [employer] provides no warranty or guarantee of the accuracy or completeness of information in this document.
[2024-12-23 08:35] VITALS: BP 128/73; PULSE 84; O2SAT 96
[2024-12-23 08:50] VITALS: BP 131/77; PULSE 85; O2SAT 96
[2024-12-23 09:05] VITALS: BP 122/77; PULSE 85; O2SAT 95
[2024-12-23 09:17] VITALS: BP 131/93; PULSE 84; O2SAT 94
[2024-12-23 09:28] VITALS: BP 135/81; PULSE 84; O2SAT 93
== END | disposition home or self-care (01) ==
LOC: OPMRI 07:29
PROVIDERS: PCP Family Medicine; Referring Provider Student in an Organized Health Care Education/Training Program; Visit Provider Student in an Organized Health Care Education/Training Program
DX: C61 Malignant neoplasm of prostate (principal)
CPT/HCPCS: 72197; A9575; A4216